=== PATIENT | female | born 1965 | race Caucasian/White ===

== ENCOUNTER 2018-05-27 08:09 | Observation (INO) | payer OTHER, SELFPAY ==
[2018-05-27] VITALS (9 sets, daily range): BP systolic 96–140; BP diastolic 56–92; PULSE 58–90; RESP 16–18; TEMP 36.6–37.3; O2SAT 96–99; BMI 24.2; BMI 20.8; BMI 20.9
[2018-05-27] MEDS: Aspirin 81 MG TAB.CHEW 324 MG PO (08:29)
[2018-05-27 08:39] LABS: Absolute Lymphocyte Count 1.91 X10^3/ul (0.83-4.51); Absolute Neutrophil Count 5.6 X10^3/uL (2.0-7.7); Basophil# 0.03 X10^3/uL; Basophil% 0.3 % (0-1); Eosinophil# 0.36 X10^3/uL; Eosinophils% 4.1 % (0-5); Hematocrit 40.2 % (37-47); Lymphocyte # 1.91 X10^3/ul (4.0); Lymphocyte % 21.9 % (19-41); Mean Corpuscular Volume 80.4 fL (81-99); Mean Platelet Vol. 11.1 fl (6.2-12.0); Monocyte# 0.77 X10^3/uL; Monocyte% 8.8 % (0-10); Neutrophil # 5.61 X10^3/uL (2.7-7.7); Neutrophil % 64.6 % (47-70); Platelet Count 201 K/mm3 (150-450); RBC Distribution Width CV 15.1 % (11.6-14.6); RBC Distribution Width SD 44.1 fl (35.1-43.9); White Blood Count 8.7 K/mm3 (4.4-11.0)
[2018-05-27 08:41] LABS: Hemoglobin 14.6 g/dl (12.0-15.0); Mean Corpuscular Hgb 29.2 pg (27.0-32.0)
--- NOTE | 2018-05-27 08:41 | ED.DCSUM_ITS ---
- ER Visit Summary Date of Service: 05/27/18 Chief Complaint: Chest pain History of Present Illness: The patient is a 53 F with 1 hour of chest pain, aching across her chest. This is now just resolved. She has no fever or chills. The pain does not radiate into her abdomen or jar region there is no back pain. She does not feeling a tearing sensation. She has no PE risk factors or calf pain. Pain is mild to moderate, again this has resolved. Physical Examination: Not appear in acute distress. Moist mucous membranes, no obvious facial deformity No C-spine tenderness supple neck. Regular rate and rhythm without any obvious murmurs Clear lungs bilaterally speaking in full sentences without any obvious respiratory distress Abdomen soft and nontender no guarding or rebound Moves all extremities without any difficulty or pain. Skin does not show any obvious rashes or lesions, no trauma. Alert oriented ?3 with no gross focal deficit Emergency Department Course and Treatment: Patient has an unremarkable workup, however she has T-wave inversions in the anteroseptal leads which are changed from prior EKG, her heart score is a 4 therefore I will admit for further workup Disposition: Admit to the hospitalist in stable condition Impression: Chest pain This note was generated with Telisma dictation software. It may contain incorrect words, spelling, and punctuation that were not noted in review of the chart prior to signing ED Disposition - Plan for ED Patient: Chief Complaint: Chest Pain Referrals: Noelle Bowden DO [Primary Care Provider] -
[2018-05-27 08:42] LABS: Mean Corp Hgb Conc 36.3 g/gl (32-36); POSITIVE COUNT NO; POSITIVE DIFFERENTIAL NO; POSITIVE MORPHOLOGY NO
[2018-05-27 08:47] LABS: Anion Gap 11 (5-15); BUN 14 mg/dL (7-18); BUN/Creat Ratio 20.6 RATIO (10-20); Calcium,Total 8.9 mg/dL (8.5-10.1); Chloride 102 mmol/L (98-107); Creatinine, Serum 0.68 mg/dL (0.55-1.02); EST Glomerular Filtration Rate 96 mL/min (>60); Est Glom Filt Rate - Afr Amer 116 mL/min (>60); Estimated Creatinine Clearance 89.57 ml/min; Glucose 83 mg/dL (74-106); Potassium 3.6 mmol/L (3.5-5.1); Sodium Level 143 mmol/L (136-145)
[2018-05-27] MEDS: 0.9% Normal Saline 1,000 ML 75 ML IV (10:04)
--- NOTE | 2018-05-27 10:16 | PCM.HP.STD ---
History of Present Illness Date of Admission: 05/27/18 Chief Complaint: Chest pain. The patient is a 53 year old F with no significant past medical history presented to the emergency department because of chest pain. Her symptoms started this morning when she was at work standing, started having upper back pain, went to her anterior chest, sharp pain, 10 out of 10 in severity, across her upper chest both on the front and on the back, associated with sweating and mild shortness of breath and no aggravating or relieving factors. The pain lasted for a few minutes until she arrived to the emergency department. She was about to be given sublingual nitroglycerin in the ER but her pain improved. At this time, the pain significantly improved. In the emergency department, her vital signs were stable. Her routine blood work was unremarkable. Her troponin was negative. Chest x-ray showed no acute findings. EKG revealed normal sinus rhythm, normal WV interval, prolonged QTC, T-wave inversion and V2, V3 and V4 and compared to EKG from 2012, T-wave inversion is chronic but more prominent on today's EKG. She is being admitted for atypical chest pain with minimal EKG changes for evaluation. Past Medical History Allergies No Known Allergies Allergy (Unverified 05/27/18 08:22) Home Medications: Ambulatory Orders Medication Instructions Recorded aspirin 81 mg tablet,delayed 81 mg PO QDAY 09/28/17 release lorazepam 1 mg tablet 1 mg PO DAILY PRN PRN 09/28/17 Surgical History: no surgical history Psychiatric History: No pertinent psych hx Lives: Spouse/ Significant Other Smoking Status: Current every day smoker Tobacco Use: Cigarettes Alcohol: Occasional Drugs: None - *Family History Maternal History Items: No pertinent history Paternal History Items: No pertinent history Review of Systems Constitutional: Denies: Anorexia, Chills, Fever, Weakness Eyes: Denies: Blurred vision, Double vision, Drainage, Redness HEENT: Denies: Difficulty Hearing, Ear Pain, Eye Pain, Nasal Congestion, Sore Throat Cardiovascular: Reports: Chest Pain. Denies: Edema, Heaviness, Light Headedness, Palpitations, Syncope Respiratory: Reports: Shortness of Breath. Denies: Cough, Pleuritic Pain, Sputum production, Wheezing Gastrointestinal: Denies: Abdominal Pain, Constipation, Diarrhea, Nausea, Vomiting Genitourinary: Denies: Dysuria, Frequency, Hematuria Musculoskeletal: Denies: Arm Pain, Back Pain, Foot Pain Skin: Denies: Dryness, Rash Neurological: Denies: Balance problems, Double vision, Change in Speech, Slurred speech, Incoordination, Numbness, Tingling Psychiatric: Denies: Depression Endocrine: Denies: Change in Body Habitus, Polydipsia VTE Information - Inpt Only VTE Present on Admission: No VTE Mechan Device Prophylaxis: None VTE Pharm Prophylaxis ordered?: No - Physical Exam General: Alert, Oriented x3, Cooperative, No apparent distress HEENT: Atraumatic, PERRLA, EOMI, Normocephalic Oral: Moist Mucosa, No Gingival or Mucosal Lesions/ Ulcerations Neck: Supple, No JVD, Negative Carotid Bruits, Trachea Midline, Thyroid Normal Size and Texture Lungs: Clear to auscultation, Normal air movement, No rhonchi, No wheeze, No rales Cardiovascular: Regular rate, Regular Rhythm, Normal S1, Normal S2, No murmurs Abdomen: Bowel Sounds Present, Soft, Non Tender, Non-Distended, No Hepato-splenomegaly Extremities: No clubbing, No cyanosis, No edema Skin: No rashes, No breakdown Musculoskeletal: No Tenderness to Palpation of Joints or Extremities Lymphatic: No Cervical, Supraclavicular, or Inguinal Adenopathy Neurological: Cranial nerves II-XII grossly intact, Motor Exam 5/5 strength throughout Psych/Mental Status: Normal Affect, Appropriate, Alert and oriented to time, place, person, mood and affect Vital Signs Temp Pulse Resp BP Pulse Ox 98.4 F 63 16 123/76 H 97 05/27/18 09:55 05/27/18 09:55 05/27/18 09:55 05/27/18 09:55 05/27/18 09:55 Oxygen Delivery Method Room Air Laboratory Tests 05/27/18 05/27/18 Range/Units 08:19 08:19 WBC 8.7 (4.4-11.0) K/mm3 RBC 5.00 (4.2-5.4) M/mm3 Hgb 14.6 (12.0-15.0) g/dl Hct 40.2 (37-47) % MCV 80.4 L (81-99) fL MCH 29.2 (27.0-32.0) pg MCHC 36.3 H (32-36) g/gl RDW 15.1 H (11.6-14.6) % RDW Differential 44.1 H (35.1-43.9) fl Plt Count 201 (150-450) K/mm3 MPV 11.1 (6.2-12.0) fl Immature Gran % (Auto) 0.300 (0.0-0.9) % Neut % (Auto) 64.6 (47-70) % Lymph % (Auto) 21.9 (19-41) % [place] % (Auto) 8.8 (0-10) % Eos % (Auto) 4.1 (0-5) % Baso % (Auto) 0.3 (0-1) % Absolute Neuts (auto) 5.6 (2.0-7.7) X10^3/uL Absolute Lymphs (auto) 1.91 (0.83-4.51) X10^3/ul Total Counted Not Reportable Sodium 143 (136-145) mmol/L Potassium 3.6 (3.5-5.1) mmol/L Chloride 102 (98-107) mmol/L Carbon Dioxide 30.0 (21.0-32.0) mmol/L Anion Gap 11 (5-15) BUN 14 (7-18) mg/dL Creatinine 0.68 (0.55-1.02) mg/dL Estim Creat Clear Calc 89.57 ml/min Est GFR (MDRD) Af Amer 116 (>60) mL/min Est GFR (MDRD) Non-Af 96 (>60) mL/min BUN/Creatinine Ratio 20.6 H (10-20) RATIO Glucose 83 (74-106) mg/dL Calcium 8.9 (8.5-10.1) mg/dL Troponin I < 0.015 (<0.045) ng/mL Clinical Impression(s) from Imaging Studies Chest X-Ray 05/27/18 08:45 IMPRESSION: Hyperinflation. Electronically Signed: Terry Pérez MD at 9:19 EDT Tel [phone], Service support , Assessment/Plan This is a 53 years old female patient presented to the emergency department because of chest pain, found to have subtle EKG changes and she is being admitted for evaluation. #1 atypical chest pain/EKG changes: Risk factors are only smoking. EKG revealed normal sinus rhythm, T-wave inversion and V2, V3 and V4 and those changes were present on EKG from 2011 but more prominent, no acute ST elevation. Troponin is negative. Chest x-ray showed no acute findings. Routine blood work was unremarkable. Vital signs are stable. She had nuclear stress test back in 2014 that was unremarkable. Plan: Admit to PCU for observation, cardiac monitoring, serial cardiac enzymes, repeat EKG tomorrow morning, nitroglycerin as needed, IV fluids, IV antiemetics as needed, nuclear stress test tomorrow morning if cardiac enzymes are negative. #2 DVT prophylaxis: Low risk patient, no prophylaxis indicated. This note was generated with Polar dictation software. It may contain incorrect words, spelling, and punctuation that were not noted in checking the note before signing. Code Visit OBSV E&M: 94309 Initial observation care L3
[2018-05-27] MEDS: Acetaminophen 325 MG Tablet 650 MG PO ×2 (10:38→17:55)
[2018-05-28] VITALS (7 sets, daily range): BP systolic 109–131; BP diastolic 58–77; PULSE 59–85; RESP 16; TEMP 36.7–36.9; O2SAT 96–99
[2018-05-28 05:20] LABS: Absolute Lymphocyte Count 1.61 X10^3/ul (0.83-4.51); Absolute Neutrophil Count 3.2 X10^3/uL (2.0-7.7); Basophil# 0.01 X10^3/uL; Basophil% 0.2 % (0-1); Eosinophil# 0.32 X10^3/uL; Eosinophils% 5.7 % (0-5); Hemoglobin 13.2 g/dl (12.0-15.0); Lymphocyte # 1.61 X10^3/ul (4.0); Lymphocyte % 28.8 % (19-41); Mean Corp Hgb Conc 35.7 g/gl (32-36); Mean Corpuscular Hgb 29.3 pg (27.0-32.0); Mean Corpuscular Volume 82.2 fL (81-99); Mean Platelet Vol. 11.5 fl (6.2-12.0); Monocyte# 0.49 X10^3/uL; Monocyte% 8.8 % (0-10); Neutrophil # 3.16 X10^3/uL (2.7-7.7); Neutrophil % 56.3 % (47-70); Platelet Count 144 K/mm3 (150-450); RBC Distribution Width CV 15.3 % (11.6-14.6); RBC Distribution Width SD 45.6 fl (35.1-43.9); White Blood Count 5.6 K/mm3 (4.4-11.0)
[2018-05-28 05:27] LABS: POSITIVE COUNT NO; POSITIVE DIFFERENTIAL NO; POSITIVE MORPHOLOGY NO
[2018-05-28 05:32] LABS: Prothrombin Time (Protime)PT. 13.3 SECONDS (11.7-14.9)
[2018-05-28 05:33] LABS: Partial Thromboplast Time 28.2 Seconds (24.1-36.2)
[2018-05-28 05:39] LABS: Anion Gap 8 (5-15); BUN 9 mg/dL (7-18); BUN/Creat Ratio 17.2 RATIO (10-20); Calcium,Total 8.1 mg/dL (8.5-10.1); Chloride 110 mmol/L (98-107); Creatinine, Serum 0.52 mg/dL (0.55-1.02); EST Glomerular Filtration Rate 130 mL/min (>60); Est Glom Filt Rate - Afr Amer 157 mL/min (>60); Estimated Creatinine Clearance 108.04 ml/min; Glucose 107 mg/dL (74-106); Potassium 4.2 mmol/L (3.5-5.1); Sodium Level 145 mmol/L (136-145)
[2018-05-28] MEDS: Aspirin E.C. 81 MG Tablet PO (05:47)
--- NOTE | 2018-05-28 05:55 | EKG12_ITS ---
Test Reason : AM EKG Blood Pressure : / mmHG Vent. Rate : 064 BPM Atrial Rate : 064 BPM P-R Int : 154 ms QRS Dur : 084 ms QT Int : 456 ms P-R-T Axes : 066 070 081 degrees QTc Int : 470 ms Normal sinus rhythm Normal ECG When compared with ECG of 27-MAY-2018 08:16, MANUAL COMPARISON REQUIRED, DATA IS UNCONFIRMED Confirmed by SINTIA CHAVEZ ([id number]), newspaper or periodical editor JUSTEN LUKE ([id number]) on 06/03/2018 3:14:54 PM Referred By: ACE Confirmed By:SINTIA CHAVEZ
[2018-05-28] MEDS: Acetaminophen 325 MG Tablet 650 MG PO (08:31)
--- NOTE | 2018-05-28 11:07 | STRESSREP ---
Stress Test Report Date: 05/28/2018 Procedure: Exercise tolerance test/imaging study Indications: Chest pain Consent: Per the patient Procedure: The patient exercised on a Ferny protocol for 11 minutes and 30 seconds minutes completing Stage III and 2 minutes and 30 seconds of Stage IV achieving a peak heart rate of 166 bpm (99 % predicted maximal heart rate) with a peak blood pressure 150/68 mmHg and a peak MET capacity of 13 METs. The baseline ECG demonstrated sinus rhythm. The peak exercise ECG demonstrated somatic/motion artifact with no obvious ECG changes. There were no cardiac dysrhythmias pretest, during exercise, or recovery. The functional capacity was considered excellent. There was neck discomfort pretest, during exercise, and recovery without obvious change. The examination was discontinued secondary to leg discomfort. Impression: 1. Technically adequate (percent predicted maximal heart rate greater than 85%) exercise tolerance test 2. Peak exercise ECG demonstrated somatic/motion artifact with no obvious ECG changes 3. There were no cardiac dysrhythmias pretest, during exercise, or recovery. 4. Nuclear images pending Myocardial perfusion imaging study: Technique: The patient was injected with 11.1 mCi of technetium 99m Cardiolite and subsequently rest SPECT Cardiolite nuclear imaging was obtained in the horizontal long, vertical long, and short axis views. The patient exercised on a Ferny protocol for 11 minutes and 30 seconds minutes completing Stage III and 2 minutes 30 seconds of Stage IV achieving a peak heart rate of 166 bpm (99 % predicted maximal heart rate) with a peak blood pressure 150/68 mmHg and a peak MET capacity of 13 METs. The patient was injected with 33.6 mCi of technetium 99m Cardiolite and subsequently stress SPECT Cardiolite nuclear imaging was obtained in the horizontal long, vertical long, and short axis views. A gated Cardiolite study at peak stress was obtained. Interpretation: Rest and stress SPECT Cardiolite nuclear imaging status post realignment, normalization, and attenuation correction, demonstrates the appearance of relative uniform tracer uptake and myocardial perfusion appearing within normal limits. There is end systolic thickening and brightening. The gated Cardiolite study demonstrates myocardial thickening and inward wall motion. The reported LVEF is 69 %. Impression: 1. Rest and stress SPECT Cardiolite nuclear imaging demonstrate relative uniform tracer uptake and myocardial perfusion appearing within normal limits. 2. The gated Cardiolite study reports an LVEF of 69 %. This note was generated with BioTime software. It may contain incorrect words, spelling, and punctuation that were not noted in checking the note before signing.
--- NOTE | 2018-05-28 12:18 | PCM.DC ---
- Discharge Diagnoses Reason(s) for Visit for Discharge Instructions: Chest pain You will use the following diet at home:: Regular Your food should be the consistency of: Regular Your liquids should be the consistency of: Regular/Thin Discharge Activity: Return to Normal Activity Additional Instructions: Continue to be active- exercise at least 30 mins daily. Follow-up with your PCP within 2 weeks. Discuss getting a repeat carotid ultrasound with your PCP. Allergies/Adverse Reactions: Allergies No Known Allergies Allergy (Unverified 05/27/18 08:22) Medications to take at Discharge aspirin 81 mg tablet,delayed release 81 mg PO QDAY 09/28/17 lorazepam 1 mg tablet 0.5 mg PO DAILY PRN PRN 09/28/17 Primary Care Physician: Noelle Bowden DO [Primary Care Provider] - Please follow up with your Primary Care Physician in: within 2 weeks Test Results: Test results from this visit will be discussed in further detail at your follow-up appointment, if applicable. Proposed Discharge Date: 05/28/18
--- NOTE | 2018-05-28 12:31 | PCM.DC.SUM ---
Discharge Date and Diagnosis Date of Admission: 05/27/18 Date of Discharge: 05/28/18 - Primary Discharge Diagnosis Chest pain Hospital Course and Treatment Imaging Results: 05/28/18 05:55 Nuclear Stress Test - Treadmil [NM] Routine None Operations: None Procedures: Nuclear stress test Summary of Care Provided: The patient is a 53 year old F with no significant past medical history admitted with chest pain that started on the morning of admission whilst working. It was described as upper back pain that radiated to her anterior chest, described as 10 out of 10. It was associated with some mild sweatiness and shortness of breath. Pain lasted for a few minutes until she arrived at the emergency department. She was given sublingual nitro which helped improve her pain. EKG shows normal sinus rhythm, normal MD interval, prolonged QTC, some T-wave inversions in V2, V3, V4 compared to previous EKG although T-wave inversions are chronic for her. Patient's troponins were negative. She was monitored in the telemetry bed. Had a stress test that was negative. Repeat EKG shows unchanged T-wave inversions. Patient was asymptomatic at the time of discharge Discharge Diet: No Restrictions Discharge Activity: Return to Normal Activity Home Medications: Medications to take at Discharge aspirin 81 mg tablet,delayed release 81 mg PO QDAY 09/28/17 lorazepam 1 mg tablet 0.5 mg PO DAILY PRN PRN 09/28/17 Primary Care Physician: Noelle Bowden DO [Primary Care Provider] - Please follow up with your Primary Care Physician in: within 2 weeks Disposition: Home Minutes spent on discharge:: 40 Patient Condition:: Stable Medical Necessity - Tobacco Use Smoking Status: Current every day smoker Tobacco Use: Cigarettes Meaningful Use Info Meaningful Use Diagnoses (Choose all that apply): None applicable Code Visit OBSV E&M: 27452 Observation care discharge
== END 2018-05-28 12:30 | disposition home or self-care (01) ==
LOC: ED 08:43 → PCU 09:29
PROVIDERS: Admitting Provider Hospitalist; Emergency Provider Emergency Medicine; Family Provider Internal Medicine; PCP Internal Medicine; Visit Provider Internal Medicine
DX: R07.89 Other chest pain (principal); M54.6 Pain in thoracic spine; Z79.899 Other long term (current) drug therapy; Z79.82 Long term (current) use of aspirin; F17.210 Nicotine dependence, cigarettes, uncomplicated; I45.81 Long QT syndrome; R06.02 Shortness of breath
CPT/HCPCS: 36415; 71045; 78452; 80048; 84484; 85025; 85610; 85730; 93005; 93017; 96360; 96361; 99218; 99283; A9500; J7030; Q9957; A4216; G0378

== ENCOUNTER → 2018-06-18 08:51 | Outpatient (CLI) | payer OTHER, SELFPAY ==
[2018-06-20 09:31] LABS: Hep C Antibodies <0.1 s/co ratio (0.0-0.9)
== END ==
PROVIDERS: Family Provider Internal Medicine; PCP Internal Medicine; Referring Provider Internal Medicine; Visit Provider Internal Medicine
DX: Z11.59 Encounter for screening for other viral diseases (principal)
CPT/HCPCS: 36415; 86803

== ENCOUNTER → 2018-06-20 11:01 | Outpatient (CLI) | payer OTHER, SELFPAY ==
--- NOTE | 2018-06-20 11:05 | CDU_ITS ---
Reason For Study: Stenosis Rt. Velocities/BP Lt. Velocities/BP Prox CCA 78.6/28.1 cm/sec. Prox CCA 85/23.5 cm/sec. Mid CCA 68.6/24 cm/sec. Mid CCA 76.2/22.3 cm/sec. Dist CCA 64.5/22.9 cm/sec. Dist CCA 73.3/25.2 cm/sec. Prox ICA 81.3/31 cm/sec. Prox ICA 59.7/26.3 cm/sec. Mid ICA 64.8/28.7 cm/sec. Mid ICA 85.6/41.6 cm/sec. Dist ICA 86.7/31 cm/sec. Dist ICA 99.1/50.4 cm/sec. Rt. ICA/CCA = 1.26. Lt. ICA/CCA = 1.30. Prox ECA 86.2/20.5 cm/sec. Prox ECA 87.9/17.6 cm/sec. Rt. Vert. 50.7/13.4 cm/sec. Lt. Vert. 55/17.3 cm/sec. Right Extracranial There is no significant atherosclerotic plaque noted in the right common carotid artery. There is intimal thickening but no significant atherosclerotic plaque noted in the right internal carotid artery. There is no significant atherosclerotic plaque noted in the right external carotid artery. Antegrade flow is noted in the right vertebral artery. Left Extracranial There is no significant atherosclerotic plaque noted in the left common carotid artery. There is no significant atherosclerotic plaque noted in the left internal carotid artery. There is no significant atherosclerotic plaque noted in the left external carotid artery. Antegrade flow is noted in the left vertebral artery. Procedure Carotid Duplex [id number]. Exam performed in department. Interpretation Summary Mild (<50%) stenosis right extracranial internal carotid. Mild (<50%) stenosis left extracranial internal carotid. Flow within the vertebral arteries is antegrade bilaterally. Ordering Physician: Dennise, Noelle Referring Physician: Noelle Bowden Performed By: [place] RVT and Student
== END ==
PROVIDERS: Family Provider Internal Medicine; PCP Internal Medicine; Referring Provider Internal Medicine; Visit Provider Internal Medicine
DX: I65.23 Occlusion and stenosis of bilateral carotid arteries (principal)
CPT/HCPCS: 93880

== ENCOUNTER → 2018-07-11 21:23 | Outpatient (CLI) | payer OTHER, SELFPAY ==
[2018-07-11 21:24] LABS: Mucous, Urine 0 SEEN /hpf (<or=2+)
[2018-07-11 23:29] LABS: Color, Urine Yellow (Yellow); Glucose, Dipstick Normal (Normal); Ketone-Dipstick Negative (Negative); Leukocyte Esterase-Dipstick 500 /ul (Negative); Nitrite-Dipstick Positive (Negative); Occult Blood-Urine 50 /ul (Negative); Protein-Dipstick 15 mg/dl (Negative); Urine Bilirubin Dipstick Negative (Negative); Urine Clarity Sl. Cloudy (Clear); Urine Urobilinogen Normal (Normal)
[2018-07-11 23:41] LABS: Bacteria RARE /hpf (None Seen); Red Blood Cells-Urine 5-10 SEEN /hpf (0-5); Squamous Epithelial Cells - UA 0-5 SEEN /hpf (5-10); White Blood Cells 25-50 SEEN /hpf (0-5)
== END ==
PROVIDERS: Family Provider Internal Medicine; PCP Internal Medicine; Referring Provider Nurse Practitioner Family; Visit Provider Nurse Practitioner Family
DX: R30.0 Dysuria (principal)
CPT/HCPCS: 81001; 87086; 87088; 87186

== ENCOUNTER → 2018-07-22 15:21 | Outpatient (CLI) | payer OTHER, SELFPAY ==
--- NOTE | 2018-07-22 15:23 | BI_ITS ---
MAMMOGRAPHY - BILATERAL SCREENING REASON FOR EXAM: Female, 53 years old. Routine annual screening examination. PERTINENT HISTORY: Sister with breast cancer. TECHNIQUE: Digital bilateral breast richard (3D mammographic acquisition) in the CC and MLO projections. 2-D mediolateral oblique (MLO) and craniocaudad (CC) views of both breasts were obtained. CAD: Full Field Digital Mammography with Computer Added Detection was performed. COMPARISON: Comparison is made with prior study dated October 12, 2016 and September 12, 2011. FINDINGS: Breast Composition: The breasts are heterogeneously dense, which may obscure small masses. There are no dominant masses or suspicious calcifications. No other significant abnormalities are identified. There has been no significant change since the prior study. BI/SCREENING MAMM (CAD), BILAT IMPRESSION: Stable bilateral screening mammogram. Yearly follow-up mammogram recommended. (A) ASSESSMENT CATEGORY: BIRADS Category 1: Negative. A letter regarding these results will be sent to the patient by the facility within 30 days. Approximately 10% of breast cancers are not detected by mammography. A normal mammogram should not delay biopsy of a clinically suspicious abnormality. [id number] Electronically Signed: Terry Pérez MD at 8:05 EDT Tel [phone], Service support ,
--- NOTE | 2018-07-22 15:27 | BD_ITS ---
STUDY: DUAL ENERGY X-RAY ABSORPTIOMETRY / DXA REASON FOR EXAM: Female, 53 years old. The patient is postmenopausal. No loss of height. TECHNIQUE: Bone Mineral Density (BMD) measurements of lumbar spine and bilateral hips were obtained. COMPARISON: None. FINDINGS: Lumbar Spine (L1-L4): g/cm2 (1.125) / T-score (-0.5) / Z-score (0.2) Findings are suggestive of normal bone density with a low fracture risk. Left Femur Total: g/cm2 (0.786) / T-score (-1.8) / Z-score (-1.2) Left Femoral Neck: g/cm2 (0.761) / T-score (-2.0) / Z-score (-1.1) Right Femur Total: g/cm2 (0.810) / T-score (-1.6) / Z-score (-1.0) Right Femoral Neck: g/cm2 (0.767) / T-score (-2.0) / Z-score (-1.0) BD/Dexa Bone Density Study IMPRESSION: The patient is considered osteopenic as outlined below according to World Patel Organization (WHO) criteria with a moderate fracture risk. Reference Information: The T-score is the number of standard deviations above or below the standard which is normal for young adults at their peak bone mineral density. The World Health Organization (WHO) interprets the T-scores as follows: Above -1 Normal bone density Between -1 and -2.5 Osteopenia Equal to / or below -2.5 Osteoporosis As a practical clinical guideline, osteopenia may be graded as follows: Mild -1 through -1.5 Moderate -1.6 through -2.0 Severe -2.1 through -2.4 The Z-score is the number of standard deviations above or below age-matched controls. A Z-score of less than -1.5 would be considered abnormal. References: 1. NIH Osteoporosis and Related Bone Diseases http://www.osteo.org 2. International Society for Clinical Densitometry http://www.iscd.org 3. National Osteoporosis Foundation http://www.nof.org Electronically Signed: Terry Pérez MD at 10:10 EDT Tel [phone], Service support ,
== END ==
PROVIDERS: Family Provider Internal Medicine; PCP Internal Medicine; Visit Provider Internal Medicine
DX: Z12.31 Encounter for screening mammogram for malignant neoplasm of breast (principal); Z78.0 Asymptomatic menopausal state
CPT/HCPCS: 77063; 77067; 77080

== ENCOUNTER → 2018-08-28 13:33 | Outpatient (CLI) | payer OTHER, SELFPAY ==
[2018-05-27 10:28] VITALS: BMI 20.8
[2018-08-28 14:13] LABS: Vitamin D,25 Hydroxy 20.9 ng/mL (29.95-100.01)
== END ==
PROVIDERS: Family Provider Internal Medicine; PCP Internal Medicine; Referring Provider Internal Medicine; Visit Provider Internal Medicine
DX: M85.80 Other specified disorders of bone density and structure, unspecified site (principal)
CPT/HCPCS: 36415; 82306

== ENCOUNTER → 2019-07-07 | Outpatient (CLI) | payer OTHER, SELFPAY ==
[2018-05-27 10:28] VITALS: BMI 20.8
[2019-07-07 08:11] LABS: Glucose 101 mg/dL (74-106)
[2019-07-09 12:08] LABS: CHOLESTEROL TOTAL 215 mg/dL (100-199); HDL-C 63 mg/dL (>39); HDL-P TOTAL 40.4 umol/L (>=30.5); SMALL LDL-P 713 nmol/L (<=527); TRIGLYCERIDES 90 mg/dL (0-149)
[2019-07-09 16:55] LABS: INSULIN RESISTANCE SCORE 27 (<=45); LDL SIZE 20.8 nm (>20.5); LDL-C 134 mg/dL (0-99); LDL-P 1654 nmol/L (<1000)
== END | disposition home or self-care (01) ==
LOC: LAB 06:52
PROVIDERS: Family Provider Internal Medicine; PCP Internal Medicine; Referring Provider Internal Medicine; Visit Provider Internal Medicine
DX: Z00.00 Encounter for general adult medical examination without abnormal findings (principal)
CPT/HCPCS: 36415; 80061; 82947; 83704

== ENCOUNTER → 2020-11-21 10:16 | Outpatient (CLI) | payer OTHER, SELFPAY ==
[2020-11-21 09:39] VITALS: BMI 23.3
[2020-11-21 12:22] LABS: Absolute Lymphocyte Count 1.91 X10^3/uL (0.83-4.51); Absolute Neutrophil Count 5.3 X10^3/uL (2.0-7.7); Basophil# 0.03 X10^3/uL; Basophil% 0.4 % (0-1); Eosinophil# 0.53 X10^3/uL; Eosinophils% 6.3 % (0-5); Hematocrit 41.4 % (37-47); Hemoglobin 14.3 g/dL (12.0-15.0); Lymphocyte # 1.91 X10^3/ul (4.0); Lymphocyte % 22.6 % (19-41); Mean Corp Hgb Conc 34.5 g/dL (32-36); Mean Corpuscular Hgb 28.8 pg (27.0-32.0); Mean Corpuscular Volume 83.3 fL (81-99); Mean Platelet Vol. 12.1 fl (6.2-12.0); Monocyte# 0.61 X10^3/uL; Monocyte% 7.2 % (0-10); NRBC Flagged by Analyzer 0 % (0-5); Neutrophil # 5.33 X10^3/uL (2.7-7.7); Neutrophil % 62.9 % (47-70); Platelet Count 212 K/mm3 (150-450); RBC Distribution Width CV 15.3 % (11.6-14.6); RBC Distribution Width SD 46.1 fl (35.1-43.9); Red Blood Count 4.97 M/mm3 (4.2-5.4); White Blood Count 8.5 K/mm3 (4.4-11.0)
[2020-11-21 12:54] LABS: ALB/GLOB Ratio 1.2 RATIO (0.9-2.4); AST(SGOT) 19 U/L (15-37); Alanine Aminotransfer ALT/SGPT 30 U/L (13-56); Alkaline Phosphatase 88 U/L (45-117); Anion Gap 6 (5-15); BUN 11 mg/dL (7-18); BUN/Creat Ratio 15.8 RATIO (10-20); Calcium,Total 8.9 mg/dL (8.5-10.1); Chloride 103 mmol/L (98-107); Cholesterol 217 mg/dL (200); EST Glomerular Filtration Rate 93 mL/min (>60); Est Glom Filt Rate - Afr Amer 112 mL/min (>60); Globulin 3.4 g/dL (2.2-4.2); Glucose 91 mg/dL (74-106); High Density Lipoprotein 58 mg/dL; Potassium 3.9 mmol/L (3.5-5.1); Protein, Total 7.4 g/dL (6.4-8.2); Sodium Level 139 mmol/L (136-145); Triglycerides 245 mg/dL; Very Low Density Lipoprotein 49 mg/dL (5-40)
== END ==
PROVIDERS: PCP Internal Medicine; Visit Provider Internal Medicine
DX: I10 Essential (primary) hypertension (principal)
CPT/HCPCS: 36415; 80053; 80061; 85025

== ENCOUNTER 2020-11-26 12:53 | Observation (INO) | payer OTHER, SELFPAY ==
[2020-11-21 09:39] VITALS: BMI 23.3
[2020-11-26] VITALS (12 sets, daily range): BP systolic 103–160; BP diastolic 64–89; PULSE 70–89; RESP 14–18; TEMP 36.6–36.9; O2SAT 97–98; BMI 22.6; BMI 21.5; BMI 21.6
--- NOTE | 2020-11-26 13:14 | RAD_ITS ---
STUDY: X-RAY CHEST REASON FOR EXAM: Female, 55 years old. Chest pain. Hypertension. TECHNIQUE: Frontal view of the chest COMPARISON: 05/27/18 FINDINGS: The lungs are clear. There are no pleural effusions. There is no pneumothorax. The heart is normal in size. The visualized osseous structures are within normal limits. RAD/Chest 1 View (Portable) IMPRESSION: No acute thoracic pathology. Electronically Signed: Ignacio Rivera MD at 13:45 EST Tel , Service support ,
--- NOTE | 2020-11-26 13:14 | EKG12_ITS ---
Test Reason : CP Blood Pressure : / mmHG Vent. Rate : 091 BPM Atrial Rate : 091 BPM P-R Int : 142 ms QRS Dur : 086 ms QT Int : 406 ms P-R-T Axes : 060 075 045 degrees QTc Int : 499 ms Normal sinus rhythm T wave abnormality, consider anterior ischemia Prolonged QT Abnormal ECG Confirmed by GILLIAN PÉREZ, RENE ([id number]), deputy editor in chief ELICEO ANGELES ([id number]) on 11/29/2020 12:33:40 PM Referred By: TERRY Confirmed By:RENE FRENCH MD
[2020-11-26 13:21] LABS: Absolute Lymphocyte Count 2.75 X10^3/uL (0.83-4.51); Absolute Neutrophil Count 6.9 X10^3/uL (2.0-7.7); Basophil# 0.06 X10^3/uL; Basophil% 0.5 % (0-1); Eosinophil# 0.59 X10^3/uL; Eosinophils% 5.1 % (0-5); Hematocrit 41.9 % (37-47); Hemoglobin 15.1 g/dL (12.0-15.0); Lymphocyte # 2.75 X10^3/ul (4.0); Lymphocyte % 23.8 % (19-41); Mean Corpuscular Hgb 29.4 pg (27.0-32.0); Mean Corpuscular Volume 81.5 fL (81-99); Mean Platelet Vol. 11.6 fl (6.2-12.0); Monocyte# 1.18 X10^3/uL; Monocyte% 10.2 % (0-10); NRBC Flagged by Analyzer 0 % (0-5); Neutrophil # 6.92 X10^3/uL (2.7-7.7); Platelet Count 259 K/mm3 (150-450); RBC Distribution Width CV 14.5 % (11.6-14.6); RBC Distribution Width SD 42.8 fl (35.1-43.9); Red Blood Count 5.14 M/mm3 (4.2-5.4); White Blood Count 11.6 K/mm3 (4.4-11.0)
[2020-11-26] MEDS: Aspirin 81 MG TAB.CHEW 324 MG PO (13:33)
[2020-11-26] MEDS: 0.9% Normal Saline 1,000 ML 150 ML IV ×2 (13:34→15:23)
[2020-11-26 13:35] LABS: Anion Gap 6 (5-15); BUN 18 mg/dL (7-18); Calcium,Total 9.4 mg/dL (8.5-10.1); Chloride 96 mmol/L (98-107); Creatinine, Serum 0.86 mg/dL (0.55-1.02); EST Glomerular Filtration Rate 73 mL/min (>60); Est Glom Filt Rate - Afr Amer 88 mL/min (>60); Estimated Creatinine Clearance 63.83 ml/min; Glucose 102 mg/dL (74-106); Potassium 3.1 mmol/L (3.5-5.1); Sodium Level 133 mmol/L (136-145)
--- NOTE | 2020-11-26 13:55 | ED.VISSUMM ---
- ER Visit Summary Date of Service: 11/26/20 Chief Complaint: [Chest pain] History of Present Illness: The patient is a 55 F [presents to the emergency department complaint of chest pain that started yesterday. She describes some vague symptoms of tightness in her upper chest into her neck. Symptoms were worse this morning she felt lightheaded with standing at times. Patient also states that she at one point sat down and while sitting began to sweat profusely. Patient felt like her heart was pounding and skipping beats. She states that her blood pressures been elevated. Patient recently started on hydrochlorothiazide for blood pressure. She also has history of high cholesterol. Patient is a smoker. Patient did have a stress test she believes several years ago. Patient's mother has had an RI in her 60s.] Physical Examination: [HEENT-PERRLA, EOMI. Cranial nerves II through XII grossly intact. TMs clear. Mucous membranes moist. No adenopathy. Cardiovascular-regular rate and rhythm without murmur or ectopy Lungs-clear to auscultation, chest wall stable without crepitus or subcu emphysema Abdomen-normoactive bowel sounds, soft, nontender, no rebound or rigidity, no peritoneal signs. Extremities-intact ?4, normal range of motion, normal pulses, atraumatic] Test Results: [EKG obtained on arrival shows sinus rhythm with a ventricular rate of [address] changes noted with some flipped T waves noted in V1 through V4. When compared with prior EKG from 2018 the flipped T waves are chronic in V1 and V2 however they were not present in V3 and V4 at that time. CBC with differential showed organ of 11.6, hemoglobin 15, hematocrit 42, placed 259. Chemistries unremarkable other than slightly depressed potassium of 3.1. Troponin was less than 0.015. Chest x-ray 1 view obtained interpreted by myself as no acute disease process without any evidence of infiltrate, cardiomegaly, pneumomediastinum, or widened mediastinum. Radiology in agreement.] Emergency Department Course and Treatment: [Line established on arrival. Patient received aspirin. Patient refused nitroglycerin.] Treatment Plan: [Admit for further work-up and evaluation of her chest pain. Patient's heart score is 5.] Disposition: [Admit] Impression: [Chest pain-rule out acute coronary syndrome] This note was generated with Dragon dictation software. It may contain incorrect words, spelling, and punctuation that were not noted in review of the chart prior to signing ED Disposition - Plan for ED Patient: Referrals: Luz Marina Martini MD [Primary Care Provider] -
--- NOTE | 2020-11-26 14:19 | PCM.HP.STD ---
History of Present Illness Date of Admission: 11/26/20 Chief Complaint: Chest pain The patient is a 55 year old F with PMH as below presents to the hospital with chest pain which started yesterday. She describes as more of tightness in her upper chest and going up into her neck. And then this morning she felt a little bit lightheaded and became diaphoretic. She also states that occasionally she is other feels like her heart is pounding in her chest and may be skipping beats. She has been following with her PCP for hypertension was recently started on hydrochlorothiazide because of climbing pressures, but she says that this is also when her abnormal beat started. She is also a smoker and states that her mother had a heart attack in her 60s. In the ER her EKG showed new T wave inversions in V34 and 5, she did have previous T wave inversions in V1 and V2. She had a stress test which was unremarkable in 2018 and an echo in 2014 which was normal. Troponins in the ER are negative so far. Past Medical History Past Medical History (Chronic Problems): Chronic Problems (Last Updated 11/07/20 @ 09:16 by Lisa Cobb) Hypertension (Chronic) Dermatitis (Chronic) Medical History: Medical History (Last Updated 11/07/20 @ 09:16 by Lisa Cobb) Anxiety F41.9 Allergies No Known Allergies Allergy (Verified 11/26/20 12:53) Home Medications: Ambulatory Orders Medication Instructions Recorded aspirin 81 mg tablet,delayed 81 mg PO QDAY 09/28/17 release lorazepam 1 mg tablet 0.5 mg PO DAILY PRN PRN 09/28/17 ascorbate calcium (vitamin C) 500 500 mg PO DAILY 11/07/20 mg tablet cholecalciferol (vitamin D3) 25 25 mcg PO DAILY 11/07/20 mcg (1,000 unit) capsule cyanocobalamin (vitamin B-12) 500 500 mcg PO DAILY 11/07/20 mcg tablet Hydrochlorothiazide [Hctz] 12.5 mg PO QAM 11/26/20 Surgical History: no surgical history Psychiatric History: No pertinent psych hx Smoking Status: Current every day smoker Tobacco Use: Cigarettes Alcohol: None Drugs: None - *Family History Maternal Family History: Family History (Last Updated 11/07/20 @ 09:13 by Lisa Cobb) Mother Arthritis Myocardial infarction Heart disease Sister Breast cancer Cancer Father Cancer Diabetes Brother Cancer History Items: No pertinent history Paternal Family History: Family History (Last Updated 11/07/20 @ 09:13 by Lisa Cobb) Mother Arthritis Myocardial infarction Heart disease Sister Breast cancer Cancer Father Cancer Diabetes Brother Cancer History Items: No pertinent history Review of Systems Constitutional: Denies: Chills, Fever, Weight Change HEENT: Denies: Head Aches, Sinus Congestion, Sinus Drainage Cardiovascular: Reports: Chest Tightness, Light Headedness. Denies: Chest Pain, Palpitations Respiratory: Denies: Cough, Shortness of breath at rest, Sputum production Gastrointestinal: Denies: Abdominal Pain, Nausea, Vomiting Genitourinary: Denies: Dysuria Musculoskeletal: Denies: Joint Pain, Joint Tenderness Skin: Denies: Rash, Wounds Neurological: Denies: Numbness, Tingling, Focal weakness Psychiatric: Denies: Anxiety, Depression Hematologic/ Lymphatic: Denies: Easy Bruising, Easy Bleeding VTE Information - Inpt Only VTE Present on Admission: No - Physical Exam Vitals/I&O's: Vital Signs Temp Pulse Resp BP Pulse Ox 98.0 F 75 14 134/71 H 98 11/26/20 12:54 11/26/20 14:11 11/26/20 14:11 11/26/20 14:11 11/26/20 14:11 Oxygen Delivery Method Room Air Weight: 132 lb 4.438 oz Body Mass Index (BMI) 22.6 General: Alert, Oriented x3, Cooperative, No apparent distress HEENT: Atraumatic, PERRLA, EOMI, Normocephalic Oral: Moist Mucosa Neck: Supple, No JVD Lungs: Clear to auscultation, Normal air movement, No rhonchi, No wheeze, No rales Cardiovascular: Regular rate, Regular Rhythm, Normal S1, Normal S2, No murmurs Abdomen: Soft, Non Tender, Non-Distended, No Hepato-splenomegaly Extremities: No edema, Capillary Refill Less than 3 Seconds Skin: No breakdown, Rash Present - Pruritic raised nonblanching lesions on her back and anterior thighs Musculoskeletal: No Tenderness to Palpation of Joints or Extremities Neurological: Neuro grossly intact, Sensory exam intact to light touch and pain Psych/Mental Status: Normal Affect, Appropriate Laboratory Results 11/26/20 13:00: WBC 11.6 H, RBC 5.14, Hgb 15.1 H, Hct 41.9, MCV 81.5, MCH 29.4, MCHC 36.0, RDW Std Deviation 42.8, RDW Coeff of Manuel 14.5, Plt Count 259, MPV 11.6, Immature Gran % (Auto) 0.400, Neut % (Auto) 60.0, Lymph % (Auto) 23.8, [place] % (Auto) 10.2 H, Eos % (Auto) 5.1 H, Baso % (Auto) 0.5, Absolute Neuts (auto) 6.9, Absolute Lymphs (auto) 2.75, Nucleated RBC % 0 11/26/20 13:00: Sodium 133 L, Potassium 3.1 L, Chloride 96 L, Carbon Dioxide 31.0, Anion Gap 6, BUN 18, Creatinine 0.86, Estim Creat Clear Calc 63.83, Est GFR (MDRD) Af Amer 88, Est GFR (MDRD) Non-Af 73, BUN/Creatinine Ratio 21.0 H, Glucose 102, Calcium 9.4, Troponin I < 0.015 Current Medications Sodium Chloride () 1,000 mls @ 150 mls/hr IV .Q6H40M ARASH Last Admin: 11/26/20 13:34 Dose: 150 mls/hr Documented by: Nitroglycerin (Nitroglycerin Sl (Ed/Img/Cath) 0.4 Mg Tablet) 0.4 mg SUBLINGUAL Q5M PRN PRN Reason: Chest pain Assessment/Plan 1. Chest pain/HTN/HLD/tobacco abuse -Initial troponin is negative, will trend -EKG with flipped T waves in the lateral leads which is new -Plan for stress test on Saturday -She had elevated triglycerides as well as total cholesterol in 2018, will start her on a statin -Continue with aspirin -Encourage smoking cessation -We will check lipid panel 2. Anxiety -She does get significant anxiety at times and takes Ativan -This chest pain episode could have been a panic attack however will rule out cardiac source first -Continue with Ativan DVT: Lovenox OBSV E&M: 65749 Initial observation care L2
--- NOTE | 2020-11-26 14:54 | EKG12_ITS ---
Test Reason : CP ADMISSION Blood Pressure : / mmHG Vent. Rate : 068 BPM Atrial Rate : 068 BPM P-R Int : 156 ms QRS Dur : 086 ms QT Int : 462 ms P-R-T Axes : 058 065 064 degrees QTc Int : 491 ms Normal sinus rhythm T wave abnormality, consider anterior ischemia Prolonged QT Abnormal ECG Confirmed by LESTER PÉREZ, KURTIS ([id number]), editorial director ELICEO ANGELES ([id number]) on 11/29/2020 12:50:29 PM Referred By: IRVING Confirmed By:KURTIS BATISTA MD
--- NOTE | 2020-11-26 16:54 | NURSING ---
this RN resuming care of patient at this time
[2020-11-26] MEDS: Potassium Chloride Oral Tablet 20 MEQ 40 MEQ PO (17:18)
[2020-11-26] MEDS: Acetaminophen 325 MG Tablet 650 MG PO (19:30)
[2020-11-26] MEDS: LORazepam 0.5 MG Tablet PO (19:38)
[2020-11-26] MEDS: Atorvastatin Calcium 40 MG Tablet PO (21:07)
[2020-11-27 04:00] VITALS: PULSE 79
[2020-11-27 04:30] VITALS: BP 112/67; PULSE 66; RESP 16; TEMP 36.4; O2SAT 97
[2020-11-27 05:28] LABS: Absolute Lymphocyte Count 2.69 X10^3/uL (0.83-4.51); Absolute Neutrophil Count 3.4 X10^3/uL (2.0-7.7); Basophil# 0.05 X10^3/uL; Basophil% 0.7 % (0-1); Eosinophil# 0.76 X10^3/uL; Eosinophils% 9.9 % (0-5); Hematocrit 39.9 % (37-47); Lymphocyte # 2.69 X10^3/ul (4.0); Lymphocyte % 35.2 % (19-41); Mean Corp Hgb Conc 35.1 g/dL (32-36); Mean Corpuscular Hgb 28.7 pg (27.0-32.0); Mean Corpuscular Volume 81.8 fL (81-99); Mean Platelet Vol. 11.8 fl (6.2-12.0); Monocyte# 0.69 X10^3/uL; NRBC Flagged by Analyzer 0 % (0-5); Neutrophil # 3.44 X10^3/uL (2.7-7.7); Neutrophil % 44.9 % (47-70); Platelet Count 224 K/mm3 (150-450); RBC Distribution Width CV 14.9 % (11.6-14.6); RBC Distribution Width SD 44.3 fl (35.1-43.9); Red Blood Count 4.88 M/mm3 (4.2-5.4); White Blood Count 7.7 K/mm3 (4.4-11.0)
[2020-11-27 06:23] LABS: Anion Gap 6 (5-15); BUN 14 mg/dL (7-18); Calcium,Total 8.7 mg/dL (8.5-10.1); Chloride 103 mmol/L (98-107); Cholesterol 213 mg/dL (200); Creatinine, Serum 0.67 mg/dL (0.55-1.02); EST Glomerular Filtration Rate 97 mL/min (>60); Est Glom Filt Rate - Afr Amer 118 mL/min (>60); Estimated Creatinine Clearance 81.93 ml/min; Glucose 101 mg/dL (74-106); High Density Lipoprotein 60 mg/dL; Potassium 3.9 mmol/L (3.5-5.1); Sodium Level 138 mmol/L (136-145); Triglycerides 132 mg/dL; Very Low Density Lipoprotein 26 mg/dL (5-40)
[2020-11-27 07:00] VITALS: PULSE 66
[2020-11-27 08:46] VITALS: BP 119/88; PULSE 76; RESP 16; TEMP 36.7; O2SAT 97
[2020-11-27] MEDS: Aspirin E.C. 81 MG Tablet PO (08:50)
[2020-11-27] MEDS: hydroCHLOROthiazide 12.5mg 12.5 MG PO (08:50)
[2020-11-27] MEDS: Cyanocobalamin 500 MCG Tablet PO (08:50)
--- NOTE | 2020-11-27 08:57 | DCINST_ITS ---
You will use the following diet at home:: Cardiac Your food should be the consistency of: Regular Your liquids should be the consistency of: Regular/Thin Discharge Activity: Return to Normal Activity Call your doctor if you observe: Fever of 101 or Higher, Shortness of breath, Dizziness, Fainting spells, Swelling in the ankles, Chest pain, Increased palpitations (irregular heartbeat) Instructions: ED High Blood Pressure ..., ED Hypertension, New (Begin Treatment), Taking Blood Pressure Medications Additional Instructions: I continued her hydrochlorothiazide at the starting dose which her PCP started to want because your blood pressure has been consistently below 150 systolic. Would recommend taking any home blood pressure machine you have to your PCPs office to be calibrated to make sure you are getting accurate blood pressures at home. Your cholesterol is elevated and your LDL was 127 therefore I am also starting you on a statin. Allergies/Adverse Reactions: Allergies No Known Allergies Allergy (Verified 11/26/20 12:53) Medications to take at Discharge aspirin 81 mg tablet,delayed release 81 mg PO QDAY 09/28/17 lorazepam 1 mg tablet 0.5 mg PO DAILY PRN PRN 09/28/17 ascorbate calcium (vitamin C) 500 mg tablet 500 mg PO DAILY 11/07/20 cholecalciferol (vitamin D3) 25 mcg (1,000 unit) capsule 25 mcg PO DAILY 11/07/20 cyanocobalamin (vitamin B-12) 500 mcg tablet 500 mcg PO DAILY 11/07/20 Hydrochlorothiazide [Hctz] 12.5 mg PO QAM 11/26/20 Atorvastatin Calcium [Lipitor] 40 mg PO QHS #30 tab 11/27/20 The following prescriptions were given: Atorvastatin Calcium [Lipitor] 40 mg PO QHS #30 tab Transmission Status: Pending to [id number] Primary Care Physician: Luz Marina Martini MD [Primary Care Provider] - Please follow up with your Primary Care Physician in: 3-5 days Test Results: Test results from this visit will be discussed in further detail at your follow- up appointment, if applicable.
--- NOTE | 2020-11-27 08:59 | DS.PCM_ITS ---
Discharge Date and Diagnosis Date of Admission: 11/26/20 Date of Discharge: 11/27/20 - Secondary Discharge Diagnosis Chronic Problems: Chronic Problems (Last Updated 11/07/20 @ 09:16 by Lisa Cobb) Hypertension (Chronic) Dermatitis (Chronic) Hospital Course and Treatment Operations: None Procedures: None Summary of Care Provided: Per HPI: The patient is a 55 year old F with PMH as below presents to the hospital with chest pain which started yesterday. She describes as more of tightness in her upper chest and going up into her neck. And then this morning she felt a little bit lightheaded and became diaphoretic. She also states that occasionally she is other feels like her heart is pounding in her chest and may be skipping beats. She has been following with her PCP for hypertension was recently started on hydrochlorothiazide because of climbing pressures, but she says that this is also when her abnormal beat started. She is also a smoker and states that her mother had a heart attack in her 60s. In the ER her EKG showed new T wave inversions in V34 and 5, she did have previous T wave inversions in V1 and V2. She had a stress test which was unremarkable in 2018 and an echo in 2014 which was normal. Troponins in the ER are negative so far. Hospital Course: 1. Chest pain/HTN/HLD/tobacco [id number] female presents from home with chest tightness/pressure as well as abnormal beat. She says that this started after starting hydrochlorothiazide for her blood pressures continue to rise during the week. Her troponins were unremarkable and her EKG was also unremarkable she did have some flipped T waves in her lateral leads however she states today that her chest pain had resolved and she does not want to stay for a stress test tomorrow morning. I discussed with her that that would be the fastest way to make sure that everything is okay with her heart but she would prefer to follow-up with her PCP as an outpatient and schedule either an echo or a stress test from home. I did check her lipid panel and her total cholesterol was elevated to 13 and her LDL was elevated to 127 therefore I did start her on a statin. I also continued her hydrochlorothiazide, she is on 12.5 mg p.o. daily and her blood pressures aside from the initial when she came to the ER have been under 150 systolic. I do recommend that she continue with her hydrochlorothiazide and take her blood pressure monitoring equipment to her PCPs office for calibration. Also encourage cessation of smoking. Discussed with her the plan for discharge today and she expressed understanding of the risk benefits of going home and would like to go home. I did advise her that if she has any more chest pain or pounding in her chest from her abnormal beat that she is to come back to the hospital so we can complete the stress test in the morning. 2. Anxiety is a chronic medical condition which complicates her care. This could be a cause of her chest pain however I would prefer to rule out a cardiac cause first so hopefully she does obtain the stress test as an outpatient. Continue with her Ativan on discharge. - Physical Exam Vitals/I&O's: Vital Signs Temp Pulse Resp BP Pulse Ox 98.0 F 76 16 119/88 H 97 11/27/20 08:46 11/27/20 08:46 11/27/20 08:46 11/27/20 08:46 11/27/20 08:46 Oxygen Delivery Method Room Air Weight: 128 lb 15.527 oz Body Mass Index (BMI) 21.5 Intake and Output for Last 24 Hours 11/25/20 11/26/20 11/27/20 23:59 23:59 23:59 Intake Total 1477.5 / 1477.5 Balance 1477.5 / 1477.5 General: Alert, Oriented x3, Cooperative, No apparent distress HEENT: Atraumatic, PERRLA, EOMI, Normocephalic Oral: Moist Mucosa Neck: Supple, No JVD Lungs: Clear to auscultation, Normal air movement, No rhonchi, No wheeze, No rales Cardiovascular: Regular rate, Regular Rhythm, Normal S1, Normal S2, No murmurs Abdomen: Soft, Non Tender, Non-Distended, No Hepato-splenomegaly Extremities: No edema, Capillary Refill Less than 3 Seconds Skin: No breakdown, Rash Present - Pruritic raised nonblanching lesions on her back and anterior thighs Musculoskeletal: No Tenderness to Palpation of Joints or Extremities Neurological: Neuro grossly intact, Sensory exam intact to light touch and pain Psych/Mental Status: Normal Affect, Appropriate Laboratory Results 11/26/20 13:00: WBC 11.6 H, RBC 5.14, Hgb 15.1 H, Hct 41.9, MCV 81.5, MCH 29.4, MCHC 36.0, RDW Std Deviation 42.8, RDW Coeff of Manuel 14.5, Plt Count 259, MPV 11.6, Immature Gran % (Auto) 0.400, Neut % (Auto) 60.0, Lymph % (Auto) 23.8, [place] % (Auto) 10.2 H, Eos % (Auto) 5.1 H, Baso % (Auto) 0.5, Absolute Neuts (auto) 6.9, Absolute Lymphs (auto) 2.75, Nucleated RBC % 0 11/26/20 13:00: Sodium 133 L, Potassium 3.1 L, Chloride 96 L, Carbon Dioxide 31.0, Anion Gap 6, BUN 18, Creatinine 0.86, Estim Creat Clear Calc 63.83, Est GFR (MDRD) Af Amer 88, Est GFR (MDRD) Non-Af 73, BUN/Creatinine Ratio 21.0 H, Glucose 102, Calcium 9.4, Troponin I < 0.015 11/26/20 16:00: Troponin I < 0.015 11/26/20 19:25: Troponin I < 0.015 11/27/20 04:38: WBC 7.7, RBC 4.88, Hgb 14.0, Hct 39.9, MCV 81.8, MCH 28.7, MCHC 35.1, RDW Std Deviation 44.3 H, RDW Coeff of Manuel 14.9 H, Plt Count 224, MPV 11.8, Immature Gran % (Auto) 0.300, Neut % (Auto) 44.9 L, Lymph % (Auto) 35.2, [place] % (Auto) 9.0, Eos % (Auto) 9.9 H, Baso % (Auto) 0.7, Absolute Neuts (auto) 3.4, Absolute Lymphs (auto) 2.69, Nucleated RBC % 0 11/27/20 04:38: Sodium 138, Potassium 3.9, Chloride 103, Carbon Dioxide 29.0, Anion Gap 6, BUN 14, Creatinine 0.67, Estim Creat Clear Calc 81.93, Est GFR (MDRD) Af Amer 118, Est GFR (MDRD) Non-Af 97, BUN/Creatinine Ratio 21.0 H, Glucose 101, Calcium 8.7, Triglycerides 132, Cholesterol 213 H, LDL Cholesterol 127, VLDL Cholesterol 26, HDL Cholesterol 60 Current Medications Acetaminophen (Acetaminophen 325 Mg Tablet) 650 mg PO Q6H PRN PRN PRN Reason: Pain Score 1-10/Temp > 100.7 F Last Admin: 11/26/20 19:30 Dose: 650 mg Documented by: Aspirin (Aspirin E.C. 81 Mg Tablet) [facility] Last Admin: 11/27/20 08:50 Dose: 81 mg Documented by: Atorvastatin Calcium (Atorvastatin Calcium 40 Mg Tablet) 40 mg PO QHS [facility] Last Admin: 11/26/20 21:07 Dose: 40 mg Documented by: Cyanocobalamin (Cyanocobalamin 500 Mcg Tablet) [facility] Last Admin: 11/27/20 08:50 Dose: 500 mcg Documented by: Enoxaparin Sodium (Enoxaparin 40 Mg/0.4 Ml Syringe) 40 mg SC DAILY [facility] Last Admin: 11/27/20 08:50 Dose: Not Given Documented by: Hydrochlorothiazide (Hydrochlorothiazide 12.5mg) 12.5 mg PO [facility] Last Admin: 11/27/20 08:50 Dose: 12.5 mg Documented by: Lorazepam (Lorazepam 0.5 Mg Tablet) 0.5 mg PO DAILY PRN PRN PRN Reason: ANXIETY Last Admin: 11/26/20 19:38 Dose: 0.5 mg Documented by: Melatonin (Melatonin 3 Mg Tablet) 3 mg PO QHS PRN PRN PRN Reason: INSOMNIA Nitroglycerin (Nitroglycerin (Inpatient Use) 0.4 Mg Tab.Subl) 0.4 mg SUBLINGUAL Q5M PRN PRN Reason: CARDIAC/CHEST PAIN Ondansetron HCl (Ondansetron 4 Mg/2 Ml Vial) 4 mg IV Q8H PRN PRN PRN Reason: NAUSEA/VOMITING Discharge Activity: Return to Normal Activity Call your doctor if you observe: Fever of 101 or Higher, Shortness of breath, Dizziness, Fainting spells, Swelling in the ankles, Chest pain, Increased palpitations (irregular heartbeat) Home Medications: Medications to take at Discharge aspirin 81 mg tablet,delayed release 81 mg PO QDAY 09/28/17 lorazepam 1 mg tablet 0.5 mg PO DAILY PRN PRN 09/28/17 ascorbate calcium (vitamin C) 500 mg tablet 500 mg PO DAILY 11/07/20 cholecalciferol (vitamin D3) 25 mcg (1,000 unit) capsule 25 mcg PO DAILY 11/07/20 cyanocobalamin (vitamin B-12) 500 mcg tablet 500 mcg PO DAILY 11/07/20 Hydrochlorothiazide [Hctz] 12.5 mg PO QAM 11/26/20 Atorvastatin Calcium [Lipitor] 40 mg PO QHS #30 tab 11/27/20 Following Prescriptions Were Given to Patient: Atorvastatin Calcium [Lipitor] 40 mg PO QHS #30 tab Transmission Status: Pending to [facility] [id number] Primary Care Physician: Luz Marina Martini MD [Primary Care Provider] - Please follow up with your Primary Care Physician in: 3-5 days Patient Instructions: Taking Blood Pressure Medications, ED Hypertension, New (Begin Treatment), ED High Blood Pressure ... Disposition: Home Minutes spent on discharge:: 35 Patient Condition:: Stable Medical Necessity - Tobacco Use Smoking Status: Current every day smoker Tobacco Use: Cigarettes Meaningful Use Info Meaningful Use Diagnoses (Choose all that apply): None applicable OBSV E&M: 36636 Observation care discharge
== END 2020-11-27 09:59 | disposition home or self-care (01) ==
LOC: ED 13:34 → PCU 14:26
PROVIDERS: Admitting Provider Family Medicine; Emergency Provider Emergency Medicine; PCP Internal Medicine; Visit Provider Family Medicine
DX: R07.89 Other chest pain (principal); R42 Dizziness and giddiness; F17.210 Nicotine dependence, cigarettes, uncomplicated; I10 Essential (primary) hypertension; Z82.49 Family history of ischemic heart disease and other diseases of the circulatory system; Z79.899 Other long term (current) drug therapy; Z79.82 Long term (current) use of aspirin; F41.9 Anxiety disorder, unspecified; E78.5 Hyperlipidemia, unspecified; R94.31 Abnormal electrocardiogram [ECG] [EKG]
CPT/HCPCS: 36415; 71045; 80048; 80061; 84484; 85025; 93005; 96360; 96361; 99218; 99285; 99406; J7030; A4216; G0378

== ENCOUNTER → 2020-12-06 12:32 | Outpatient (CLI) | payer OTHER, SELFPAY ==
[2020-11-21 09:39] VITALS: BMI 23.3
[2020-12-06 12:07] VITALS: BMI 22.3
--- NOTE | 2020-12-06 12:33 | CT_ITS ---
STUDY: LOW DOSE CT LUNG CANCER SCREENING REASON FOR EXAM: Female, 55 years old. Lung cancer screening -- 30 pack year history; asymptomatic; former smoker RADIATION DOSAGE (If Supplied By Facility): CTDIvol = ( 2.01 ) mGy, DLP = ( 66.95 ) mGycm TECHNIQUE: No contrast was administered. Low dose technique was utilized (average mAS-38 and kVp 120). 1.25 mm axial source images with a slice interval of 1.25-mm were reconstructed in lung windows. 2.5 mm axial source images with a slice interval of 2.5-mm were reconstructed in lung windows. 5.0 mm axial source images with a slice interval of 5.0-mm were reconstructed in soft tissue windows. Nodule measured using lung windows on PACS and/or independent workstation with automated measurement of minimum and maximum diameter. Nodule measurement reported as average diameter rounded to the nearest whole number. Growth is defined as an increase ins size of greater than 1.5 mm. COMPARISON: Comparison is made with prior examination dated 09/02/2015. NODULES: No suspicious nodules are seen. Emphysema: Mild degree of emphysematous changes. Findings suggest some scarring at both lung apices more prominent on the right side. Aorta: Unremarkable. Coronary arteries: Unremarkable. Heart: Unremarkable. Pulmonary artery: Unremarkable. Mediastinal nodes: Unremarkable. CT/Low Dose CT Lung Screening IMPRESSION: Lung-RADS category 2 - Continue annual screening with LDCT in 12 months. IMPORTANT NOTES FOR USE: ACR Lung-RADS Version 1.0 Assessment Categories Release Date: January 18, 2014 Category: Coded 0-4 bases on nodule(s) with highest degree of suspicion. Negative screen is defined as categories 1 and 2; a positive screen is defined as categories 3 and 4. Category 3 and 4A nodules that are unchanged on interval CT should be coded as category 2, and individuals returned to screening in 12 months. Category 4X: Category 3 or 4 nodules with additional imaging findings that increase the suspicion of lung cancer, such as spiculation, GGN that doubles in size in 1 year, enlarged lymph notes, etc. Category Modifiers: S (significant finding unrelated to lung cancer) and C (prior history of treated lung cancer) may be added to the 0-4 Lung-RADS Electronically Signed: Terry Pérez MD at 13:00 EDT , Service support ,
== END ==
PROVIDERS: PCP Internal Medicine; Referring Provider Nurse Practitioner Family; Visit Provider Nurse Practitioner Family
DX: Z87.891 Personal history of nicotine dependence (principal); Z12.2 Encounter for screening for malignant neoplasm of respiratory organs
CPT/HCPCS: 71271

== ENCOUNTER → 2020-12-27 09:54 | Outpatient (CLI) | payer OTHER, SELFPAY ==
[2020-12-27 09:10] VITALS: BMI 22.6
[2020-12-27 12:52] LABS: ALB/GLOB Ratio 1.2 RATIO (0.9-2.4); AST(SGOT) 25 U/L (15-37); Alanine Aminotransfer ALT/SGPT 52 U/L (13-56); Alkaline Phosphatase 86 U/L (45-117); Anion Gap 3 (5-15); BUN 13 mg/dL (7-18); BUN/Creat Ratio 19.5 RATIO (10-20); Calcium,Total 9.5 mg/dL (8.5-10.1); Chloride 101 mmol/L (98-107); Creatinine, Serum 0.67 mg/dL (0.55-1.02); EST Glomerular Filtration Rate 98 mL/min (>60); Est Glom Filt Rate - Afr Amer 118 mL/min (>60); Globulin 3.3 g/dL (2.2-4.2); Glucose 116 mg/dL (74-106); Potassium 4.3 mmol/L (3.5-5.1); Protein, Total 7.3 g/dL (6.4-8.2); Sodium Level 136 mmol/L (136-145)
== END ==
PROVIDERS: PCP Internal Medicine; Referring Provider Internal Medicine; Visit Provider Internal Medicine
DX: I10 Essential (primary) hypertension (principal)
CPT/HCPCS: 36415; 80053

== ENCOUNTER → 2021-05-26 09:21 | Outpatient (CLI) | payer OTHER, SELFPAY ==
[2021-05-26 12:40] LABS: Cholesterol 211 mg/dL (200); High Density Lipoprotein 56 mg/dL; Triglycerides 134 mg/dL; Very Low Density Lipoprotein 27 mg/dL (5-40)
== END ==
PROVIDERS: PCP Internal Medicine; Referring Provider Nurse Practitioner Family; Visit Provider Nurse Practitioner Family
DX: E78.00 Pure hypercholesterolemia, unspecified (principal); F41.1 Generalized anxiety disorder; I10 Essential (primary) hypertension
CPT/HCPCS: 36415; 80061; 84443

== ENCOUNTER 2021-10-25 09:34 | Outpatient (CLI) | payer OTHER, SELFPAY ==
[2021-10-25 12:34] LABS: Anion Gap 4 (5-15); BUN 14 mg/dL (7-18); BUN/Creat Ratio 20.2 RATIO (10-20); Calcium,Total 9.5 mg/dL (8.5-10.1); Chloride 100 mmol/L (98-107); Creatinine, Serum 0.69 mg/dL (0.55-1.02); EST Glomerular Filtration Rate 93 mL/min (>60); Est Glom Filt Rate - Afr Amer 112 mL/min (>60); Glucose 98 mg/dL (74-106); Potassium 4.4 mmol/L (3.5-5.1); Sodium Level 136 mmol/L (136-145)
== END 2021-10-25 23:59 | disposition short-term general hospital (02) ==
LOC: BIMLAB 09:36
PROVIDERS: PCP Internal Medicine; Referring Provider Internal Medicine; Visit Provider Internal Medicine
DX: I10 Essential (primary) hypertension (principal)
CPT/HCPCS: 36415; 80048

== ENCOUNTER 2021-12-19 14:52 | Outpatient (CLI) | payer OTHER, SELFPAY ==
--- NOTE | 2021-12-19 15:00 | CT_ITS ---
STUDY: LOW DOSE CT LUNG CANCER SCREENING REASON FOR EXAM: Female, 56 years old. Lung cancer screening -- and gt; 30 pk yr hx;current smoker;asymptomatic RADIATION DOSAGE (If Supplied By Facility): CTDIvol = ( 2.01 ) mGy, DLP = ( 63.94 ) mGycm TECHNIQUE: No contrast was administered. Low dose technique was utilized (average mAS-38 and kVp 120). 1.25 mm axial source images with a slice interval of 1.25-mm were reconstructed in lung windows. 2.5 mm axial source images with a slice interval of 2.5-mm were reconstructed in lung windows. 5.0 mm axial source images with a slice interval of 5.0-mm were reconstructed in soft tissue windows. Nodule measured using lung windows on PACS and/or independent workstation with automated measurement of minimum and maximum diameter. Nodule measurement reported as average diameter rounded to the nearest whole number. Growth is defined as an increase ins size of greater than 1.5 mm. COMPARISON: Comparison is made with prior study dated 12/06/2020. NODULES: No suspicious nodules are seen. Emphysema: Mild degree of emphysematous changes. Stable scarring at the lung apices there has been no change. Endobronchial lesion: None Aorta: Unremarkable Coronary arteries: Unremarkable Heart: Unremarkable Pulmonary artery: Unremarkable Mediastinal nodes: Unremarkable Other chest and abdominal findings: CT/Low Dose CT Lung Screening IMPRESSION: Lung-RADS category 2 - Continue annual screening with LDCT in 12 months. IMPORTANT NOTES FOR USE: ACR Lung-RADS Version 1.1 Assessment Categories Release Date: 2018 Category: Coded 0-4 bases on nodule(s) with highest degree of suspicion. Negative screen is defined as categories 1 and 2; a positive screen is defined as categories 3 and 4. Category 3 and 4A nodules that are unchanged on interval CT should be coded as category 2, and individuals returned to screening in 12 months. Category 4X: Category 3 or 4 nodules with additional imaging findings that increase the suspicion of lung cancer, such as spiculation, GGN that doubles in size in 1 year, enlarged lymph notes, etc. Category Modifiers: S (significant finding unrelated to lung cancer) Electronically Signed: Terry Pérez MD at 15:26 EDT ,
== END 2021-12-19 23:59 | disposition home or self-care (01) ==
PROVIDERS: PCP Internal Medicine; Referring Provider Nurse Practitioner Family; Visit Provider Nurse Practitioner Family
DX: Z87.891 Personal history of nicotine dependence (principal); Z12.2 Encounter for screening for malignant neoplasm of respiratory organs
CPT/HCPCS: 71271

== ENCOUNTER → 2022-04-26 | Outpatient (CLI) | payer OTHER, SELFPAY ==
--- NOTE | 2022-04-26 08:45 | BI_ITS ---
MAMMOGRAPHY - BILATERAL SCREENING 3-D TOMOSYNTHESIS REASON FOR EXAM: Female, 56 years old. Breast cancer screening. PERTINENT HISTORY: History of breast cancer in sister at age 54. TECHNIQUE: 2-D mammograms and 3-D Tomosynthesis of the breast (s) were performed. CAD was performed. COMPARISON: 07/22/2018, 10/12/2016. FINDINGS: The breast composition is heterogeneously dense that can obscure small breast masses. Stable normal axillary lymph nodes. No dense spiculated masses or suspicious microcalcifications are identified. No architectural distortion is identified. There is no skin thickening or retraction. BI/SCRN MAMM (CAD)W/MAURICE BILAT IMPRESSION: No interval change and no mammographic signs of malignancy. Routine yearly mammograms recommended. ASSESSMENT CATEGORY: BIRADS Category 2: Benign. A letter regarding these results will be sent to the patient by the facility within 30 days. FOLLOW UP RECOMMENDATION: Yearly follow up mammogram recommended. (A) Approximately 10% of breast cancers are not detected by mammography. A normal mammogram should not delay biopsy of a clinically suspicious abnormality. Electronically Signed: Te Zhang MD at 15:28 EDT ,
== END | disposition home or self-care (01) ==
LOC: OPBI 08:43
PROVIDERS: PCP Internal Medicine; Referring Provider Internal Medicine; Visit Provider Internal Medicine
DX: Z12.31 Encounter for screening mammogram for malignant neoplasm of breast (principal); Z80.3 Family history of malignant neoplasm of breast
CPT/HCPCS: 77063; 77067

== ENCOUNTER → 2022-07-10 | Outpatient (CLI) | payer OTHER, SELFPAY ==
[2022-07-10 12:33] LABS: Absolute Neutrophil Count 4.3 X10^3/uL (2.0-7.7); Basophil# 0.04 X10^3/uL; Basophil% 0.5 % (0-1); Eosinophils% 5.2 % (0-5); Hematocrit 40.9 % (37-47); Hemoglobin 14.5 g/dL (12.0-15.0); Lymphocyte % 29.7 % (19-41); Mean Corp Hgb Conc 35.5 g/dL (32-36); Mean Corpuscular Volume 81.8 fL (81-99); Mean Platelet Vol. 12.7 fl (6.2-12.0); Monocyte# 0.72 X10^3/uL; Monocyte% 9.3 % (0-10); NRBC Flagged by Analyzer 0 % (0-5); Neutrophil # 4.25 X10^3/uL (2.7-7.7); Neutrophil % 54.9 % (47-70); Platelet Count 192 K/mm3 (150-450); RBC Distribution Width SD 44.6 fl (35.1-43.9); White Blood Count 7.7 K/mm3 (4.4-11.0)
[2022-07-10 12:44] LABS: ALB/GLOB Ratio 1.3 RATIO (0.9-2.4); AST(SGOT) 14 U/L (15-37); Alanine Aminotransfer ALT/SGPT 26 U/L (13-56); Albumin, Serum 3.8 g/dL (3.2-5.0); Alkaline Phosphatase 72 U/L (45-117); Anion Gap 5 (5-15); BUN 14 mg/dL (7-18); BUN/Creat Ratio 19.1 RATIO (10-20); Calcium,Total 9.5 mg/dL (8.5-10.1); Chloride 102 mmol/L (98-107); Cholesterol 201 mg/dL (200); Creatinine, Serum 0.73 mg/dL (0.55-1.02); EST Glomerular Filtration Rate 87 mL/min (>60); Est Glom Filt Rate - Afr Amer 105 mL/min (>60); Globulin 2.9 g/dL (2.2-4.2); Glucose 108 mg/dL (74-106); High Density Lipoprotein 54 mg/dL; Potassium 4.8 mmol/L (3.5-5.1); Protein, Total 6.7 g/dL (6.4-8.2); Sodium Level 138 mmol/L (136-145); Triglycerides 208 mg/dL; Very Low Density Lipoprotein 42 mg/dL (5-40)
== END | disposition home or self-care (01) ==
LOC: BIMLAB 08:33
PROVIDERS: PCP Internal Medicine; Referring Provider Internal Medicine; Visit Provider Internal Medicine
DX: I10 Essential (primary) hypertension (principal)
CPT/HCPCS: 36415; 80053; 80061; 85025

== ENCOUNTER → 2023-01-22 | Outpatient (CLI) | payer OTHER, SELFPAY ==
--- NOTE | 2023-01-22 14:51 | CT_ITS ---
STUDY: LOW DOSE CT LUNG CANCER SCREENING REASON FOR EXAM: Female, 57 years old. Lung cancer screening -- and gt;20 pk yr hx;current smoker;asymptomatic RADIATION DOSAGE (If Supplied By Facility): CTDIvol = ( 2.35 ) mGy, DLP = ( 81.88 ) mGycm TECHNIQUE: No contrast was administered. Low dose technique was utilized (average mAS-38 and kVp 120). 1.25 mm axial source images with a slice interval of 1.25-mm were reconstructed in lung windows. 2.5 mm axial source images with a slice interval of 2.5-mm were reconstructed in lung windows. 5.0 mm axial source images with a slice interval of 5.0-mm were reconstructed in soft tissue windows. COMPARISON: Comparison is made with prior study dated December 19, 2021. NODULES: No suspicious nodules are present. Emphysema: Stable scarring at the lung apices more pronounced in the right apex. Hyperinflation. Mild degree of emphysematous changes. Endobronchial lesion: Unremarkable. Aorta: Unremarkable. CORONARY ARTERIES: Coronary artery calcification is not seen. Heart: Unremarkable. Pulmonary artery: Unremarkable. Mediastinal nodes: Small benign-appearing mediastinal lymph nodes. Other chest and abdominal findings: CT/Low Dose CT Lung Screening IMPRESSION: Lung-RADS category 2 - Continue annual screening with LDCT in 12 months. IMPORTANT NOTES FOR USE: ACR Lung-RADS Version 1.1 Assessment Categories Release Date: 2018 Category: Coded 0-4 bases on nodule(s) with highest degree of suspicion. Negative screen is defined as categories 1 and 2; a positive screen is defined as categories 3 and 4. Category 3 and 4A nodules that are unchanged on interval CT should be coded as category 2, and individuals returned to screening in 12 months. Category 4X: Category 3 or 4 nodules with additional imaging findings that increase the suspicion of lung cancer, such as spiculation, GGN that doubles in size in 1 year, enlarged lymph notes, etc. Category Modifiers: S (significant finding unrelated to lung cancer) Electronically Signed: Terry Pérez MD at 15:18 EDT ,
== END | disposition home or self-care (01) ==
LOC: CT 14:51
PROVIDERS: PCP Internal Medicine; Referring Provider Nurse Practitioner Family; Visit Provider Nurse Practitioner Family
DX: Z87.891 Personal history of nicotine dependence (principal)
CPT/HCPCS: 71271

== ENCOUNTER → 2023-03-15 | Outpatient (CLI) | payer OTHER, SELFPAY ==
[2023-03-15 12:48] LABS: ALB/GLOB Ratio 1.3 RATIO (0.9-2.4); AST(SGOT) 14 U/L (15-37); Alanine Aminotransfer ALT/SGPT 23 U/L (13-56); Alkaline Phosphatase 74 U/L (45-117); Anion Gap 3 (5-15); BUN 12 mg/dL (7-18); BUN/Creat Ratio 20.7 RATIO (10-20); Calcium,Total 9.6 mg/dL (8.5-10.1); Chloride 102 mmol/L (98-107); Cholesterol 225 mg/dL (200); Creatinine, Serum 0.58 mg/dL (0.55-1.02); EST Glomerular Filtration Rate 113 mL/min (>60); Est Glom Filt Rate - Afr Amer 137 mL/min (>60); Globulin 3.1 g/dL (2.2-4.2); Glucose 108 mg/dL (74-106); High Density Lipoprotein 59 mg/dL; Potassium 4.6 mmol/L (3.5-5.1); Protein, Total 7.1 g/dL (6.4-8.2); Sodium Level 138 mmol/L (136-145); Triglycerides 167 mg/dL; Very Low Density Lipoprotein 33 mg/dL (5-40)
[2023-03-15 12:50] LABS: Hemoglobin A1c 4.8 % (3.8-5.6)
== END | disposition home or self-care (01) ==
LOC: BIMLAB 09:02
PROVIDERS: PCP Internal Medicine; Referring Provider Internal Medicine; Visit Provider Internal Medicine
DX: E78.5 Hyperlipidemia, unspecified (principal); R73.9 Hyperglycemia, unspecified
CPT/HCPCS: 36415; 80053; 80061; 83036

== ENCOUNTER → 2023-03-28 | Outpatient (CLI) | payer OTHER, SELFPAY ==
--- NOTE | 2023-03-28 07:07 | CT_ITS ---
STUDY: CT ABDOMEN AND PELVIS WITH CONTRAST REASON FOR EXAM: Female, 57 years old. Left lower quadrant pain. Constipation. Blood is seen within the stool. RADIATION DOSAGE (If Supplied By Facility): CTDIvol = ( 15.12 ) mGy, DLP = ( 654.81 ) mGycm TECHNIQUE: Transaxial images were obtained from the dome of the diaphragm to the symphysis pubis with oral contrast. Oral and amp; IV Readi-CAT and amp; 75mL Isovue-370 was administered. Sagittal and coronal images were reconstructed. Individualized dose optimization techniques were used for this CT. COMPARISON: None. FINDINGS: The visualized lung bases are unremarkable. The visualized portions of the heart are within normal limits. There is a 1.5 cm x 1.2 cm cyst in the medial upper aspect of the right lobe of the liver. A similar appearing cyst measuring 7.5 mm is seen in the central anterior aspect of the right lobe. Scattered subcentimeter cysts are seen in both lobes of the liver. Normal gallbladder and extrahepatic biliary system. Normal spleen. Normal pancreas. Normal bilateral adrenal glands. Normal right kidney. Normal left kidney. Normal visualized stomach. Normal small intestine. There are multiple colonic diverticula consistent with diverticulosis. The appendix is visualized and appears normal. Normal abdominal aorta. Normal inferior vena cava. There is borderline retroperitoneal lymphadenopathy with enlarged nodes no greater than 10mm in the short axis diameter. Small benign-appearing lymph nodes are seen in both groins. Normal urinary bladder. There is a small umbilical hernia containing fat. Loss of the normal lumbar lordosis. CT/Abdomen/Pelvis WITH Contrast IMPRESSION: Sigmoid diverticulosis. Multiple small intrahepatic cysts. Electronically Signed: Terry Pérez MD at 8:53 EDT ,
== END | disposition home or self-care (01) ==
LOC: CT 07:06
PROVIDERS: PCP Internal Medicine; Referring Provider Internal Medicine; Visit Provider Internal Medicine
DX: R10.9 Unspecified abdominal pain (principal); K92.1 Melena
CPT/HCPCS: 74177; Q9967

== ENCOUNTER 2023-04-17 06:06 | Day surgery (SDC) | payer OTHER, SELFPAY ==
--- NOTE | 2023-04-17 | COLBX_PTH ---
PATIENT: NAV VILLA LOC: EN U#:[id number] AGE/SX: 57/F ROOM: RE04/17/[address]: Dr. Marly Dennis MD : 1965 BED: DIS: 04/17/2023 SPEC #: [id number] RECD: 04/17/23 11:51 STATUS: DARRIUS REJonah #: [id number] ROC: 04/17/23 00:[address]: Marly Dennis DEPT: SURGICAL PATHOLOGY RECD BY: Yg Jackson ENTERED: 04/17/23 11:52 SP TYPE: COLON BX OTHR DR: Dr. Luz Marina Martini MD Tissues: Sigmoid colon biopsy Procedures: Surgery Specimen Level IV HEADER OPERATION: Colonoscopy PRE-OP DIAGNOSIS: Bright red blood per rectum TISSUE SUBMITTED: Sigmoid MICROSCOPIC DIAGNOSIS Sigmoid colon polyp, biopsy: Hyperplastic polyp. AM:whitley 04/18/2023 MICROSCOPIC DESCRIPTION Slides are reviewed. GROSS DESCRIPTION Received in fixative is one container labeled with the patient's name and designated sigmoid polyp. The specimen consists of a harris-pink polyp measuring 0.9 x 0.5 x 0.3 cm. The specimen is totally submitted in one cassette. / SJ:whitley 04/17/2023 TC:1 CPT: 33661
[2023-04-17 06:38] VITALS: BP 128/77; PULSE 76; RESP 18; TEMP 36.2; O2SAT 100; BMI 22.3
[2023-04-17] MEDS: Lactated Ringers 1,000 ML 15 ML IV (06:48)
--- NOTE | 2023-04-17 07:19 | PCM.HP.BLA ---
History and Physical Date of Admission: 04/17/23 Date of Service: 04/04/23 MR#: [id number] Acct: [id number] Name: NAV VILLA Rep #: [id number] : 1965 Provider: Dr. Marly Dennis MD Age/Sex: 57/F Location: [facility] Status: Signed Intake Vital Signs 03/15/2308:25 04/04/2313:46 Height 5 ft 4 in Weight: 130 lb 2 oz BMI 22.3 BP 108/76 115/78 Blood Pressure Location Rt brachial Rt brachial Position Sitting Sitting Respiration 18 17 Pulse 74 66 Pulse Source Monitor Monitor Temp 96.3 F L 97.9 F Temp Source Temporal Temporal Pulse Oximetry (%) 98 95 Oxygen Delivery Method room air room air Intake Visit Reasons: C-Scope/Blood in stool/Abdominal Pain Chief Complaint: c-scope/blood stool/abd pain Is patient in pain?: No Allergies No Known Allergies Allergy (Verified 04/04/23 13:48) Medications aspirin 81 mg tablet,delayed release (Erin Low Dose Aspirin) 81 mg PO DAILY 04/03/22 [History Confirmed 04/04/23] lorazepam 1 mg tablet (Ativan) 0.5 mg (1/2 x 1 mg) PO DAILY PRN PRN Anxiety #15 tabs 04/03/22 [Rx Confirmed 04/04/23] cholecalciferol (vitamin D3) 50 mcg (2,000 unit) capsule 50 mcg PO DAILY 01/22/23 [History Confirmed 04/04/23] hydrochlorothiazide 25 mg tablet 25 mg PO QAM #90 tabs 01/30/23 [Rx Confirmed 04/04/23] mecobalamin (vitamin B12) 1,000 mcg chewable tablet 5,000 mcg PO DAILY 03/15/23 [History Confirmed 04/04/23] PFSH Medical History Abdominal pain Anxiety Blood in stool Breast cancer screening Change in skin mole Colon cancer screening Elevated blood sugar Encounter for screening for malignant neoplasm of lung in current smoker with 30 pack year history or greater Flu vaccine need Health care maintenance High cholesterol Hyperlipidemia Rash Right elbow pain Right shoulder pain Right thigh pain Tobacco use disorder, continuous Family History Mother Arthritis Myocardial infarction Heart diseaseSister Breast cancerFather Diabetes Lung cancerBrother Lung cancer Social History Smoking Status: Current every day smoker (1/2 ppd) tobacco type: cigarettes Tobacco: How many years used: 30 Electronic Cigarette Use: not used how long ago did patient quit smoking: currently smoking about 0.5ppd/day second hand exposure: Yes quit status: considering quitting counseling given: provider counseling alcohol intake: current alcohol intake frequency: a few times a month Alcohol type: wine substance use type: does not use HPI HPI HPI: 57-year-old female presents due to history of bright red blood per rectum about a month ago. Patient states she had abdominal pain and then had loose stools and some bright red blood associated?moderate amount per patient. Patient denies any history of hemorrhoids. Prior to having the abdominal pain patient did have corn and she does have a family history of diverticulosis/lightest patient did have a CT abdomen pelvis did show sigmoid diverticulosis. Patient has been avoiding corn since. Patient has had bowel movements daily since has not had any further bleeding. Patient's never had a colonoscopy. Patient has no family history of colon cancer. Patient denies any chronic abdominal pain/nausea/vomiting/reflux. ROS General General: No weight change, appetite, fatigue, colon cancer, breast cancer or weakness HEENT HEENT: No difficulty swallowing, eye injury, eye surgery, swollen glands or hoarseness Endo Endocrine: No thyroid disease, diabetes mellitus, thyroid cancer, Hair loss, heat intolerance or cold intolerance Skin Skin: Yes changing moles; No rash Musc Musculoskeletal: Yes arthritis; No back problems, rheumatoid arthritis, gout or joint pain Cardio Cardiovascular: Yes high blood pressure; No murmur, pacemaker, heart disease, atrial fibrillation, heart attack, heart stent, palpitations, shortness of breat with exertion or chest pain Psych Psychiatric: Yes anxiety; No depression or hearing voices Resp Respiratory: No shortness of breath, No sleep apnea, No cough, No COPD, No asthma, Yes emphysema and No wheezing Gastro Gastrointestinal: No abdominal pain, No nausea or vomiting, Yes diarrhea, Yes constipation, Yes blood in stool, No acid reflux, No hemorrhoids, No ulcers, No gallbladder problem and No black,tarry stools Francisco Javier Hematologic: No blood thinners, No blood disorders, No bleeding, No anemia and No blood clots Neuro Neurologic: No system reviewed and no additional complaints, except as documented, No as per HPI, No abnormal gait, No abnormal hearing, No abnormal movements, No abnormal speech, No behavioral changes, No burning sensations, No confusion, No convulsions, No disequilibrium, No dizziness, No localized weakness, No frequent falls, No headache(s), No lack of coordination, No loss of vision, No memory loss, No numbness, No other visual disturbances, No radicular pain, No restless legs, No sensory deficit, No syncope, No tingling, No tremor(s), No weakness and No other Exam Const General: cooperative, healthy appearing, comfortable and no acute distress HENMT Head: normocephalic and atraumatic Neck Neck: supple Resp Effort & Inspection: normal respiratory effort Cardio Rate: regular rate GI Inspection: non-distended Palpation: soft, no hernias and nontender Skin General: no rashes or lesions noted Neuro General: CN's II-XI intact bilaterally Extrem General: normal to inspection Psych Mental Status: mental status grossly normal Attitude: cooperative Assessment and Plan Assessment and Plan (1) BRBPR (bright red blood per rectum): Status: Acute Orders: Orders Colonoscopy 04/17/23 Plan I have discussed the above with the patient. I have offered the patient colonoscopy for evaluation. I have explained the risks/benefits of the procedure and described the procedure. I have discussed the risks with the patient, including but not limited to: infection, bleeding, perforation of the GI tract requiring emergency surgery, inability to complete the procedure, injury to any internal organs, complications of anesthesia, etc. - the patient understands and agrees to proceed. I have answered all the patient's questions to the patient's satisfaction and the patient has no further questions. The patient has been given instructions for the colon cleansing preparation. 1 day clears, MiraLAX Dulcolax split prep. Marly Dennis M.D. Pager: [phone] [facility] [address] [place] [address], [facility], [address] [place] [address] Office: [phone] Coding Level of Care Code Off vis,new,level 3 Diagnoses BRBPR (bright red blood per rectum) K62.5 04/05/23 0753 <Electronically signed by Marly Dennis MD> Date Marly Dennis MD
[2023-04-17 08:00] VITALS: BP 112/67; BP 128/77; PULSE 60; RESP 16; TEMP 36.4; O2SAT 97
--- NOTE | 2023-04-17 08:04 | OP.COLON_ITS ---
Patient Name: Felicity Shell Procedure Date: 04/17/2023 7:27 AM Date of : 1965 Age: 57 Procedure: Colonoscopy Indications: Rectal bleeding Providers: Marly Dennis MD Medicines: Monitored Anesthesia Care Patient Profile: Last Colonoscopy: none. The patient's first colonoscopy is today. Complications: No immediate complications. Procedure: Pre-Anesthesia Assessment: - Prior to the procedure, a History and Physical was performed, and patient medications and allergies were reviewed. The patient's tolerance of previous anesthesia was also reviewed. The risks and benefits of the procedure and the sedation options and risks were discussed with the patient. All questions were answered, and informed consent was obtained. Prior Anticoagulants: The patient has taken no previous anticoagulant or antiplatelet agents. ASA Grade Assessment: Per anesthesia. After reviewing the risks and benefits, the patient was deemed in satisfactory condition to undergo the procedure. After I obtained informed consent, the scope was passed under direct vision. Throughout the procedure, the patient's blood pressure, pulse, and oxygen saturations were monitored continuously. The Colonoscope was introduced through the anus and advanced to the cecum, identified by the appendiceal orifice, ileocecal valve and palpation. The colonoscopy was performed without difficulty. The patient tolerated the procedure well. The quality of the bowel preparation was good. Scope In: 7:33:57 AM Scope Withdrawal Time 0 hours 14 minutes 27 seconds Scope Out: 7:54:35 AM Total Procedure Duration Time 0 hours 20 minutes 38 seconds Findings: Hemorrhoids were found on perianal exam. Non-bleeding internal hemorrhoids were found. The hemorrhoids were Grade I (internal hemorrhoids that do not prolapse). Multiple mostly small and some medium diverticula were found in the sigmoid colon, descending colon and transverse colon. A less than 5 mm polyp was found in the sigmoid colon. The polyp was semi-pedunculated. The polyp was removed with a hot snare. Resection and retrieval were complete. The exam was otherwise without abnormality. Impression: - Hemorrhoids found on perianal exam. - Non-bleeding internal hemorrhoids. - Diverticulosis in the sigmoid colon, in the descending colon and in the transverse colon. - One less than 5 mm polyp in the sigmoid colon, removed with a hot snare. Resected and retrieved. - The examination was otherwise normal. Recommendation: - Discharge patient to home. - High fiber diet. - Continue present medications. - Await pathology results. - Repeat colonoscopy in 5-10 years for surveillance based on pathology results. Procedure Code(s): --- Professional --- 31660, Colonoscopy, flexible; with removal of tumor(s), polyp(s), or other lesion(s) by snare technique Diagnosis Code(s): --- Professional --- K64.0, First degree hemorrhoids D12.5, Benign neoplasm of sigmoid colon K62.5, Hemorrhage of anus and rectum K57.30, Diverticulosis of large intestine without perforation or abscess without bleeding CPT copyright 2017 [employer]. All rights reserved. The codes documented in this report are preliminary and upon manager billing review may be revised to meet current compliance requirements. MD Marly Aguirre MD 04/17/2023 8:04:23 AM This report has been signed electronically. Number of Addenda: 0 Note Initiated On: 04/17/2023 7:27 AM
[2023-04-17 08:05] VITALS: BP 100/58; BP 128/77; PULSE 63; RESP 16; O2SAT 97
--- NOTE | 2023-04-17 08:05 | OP.CCLET_ITS ---
04/17/2023 Luz Marina Martini MD [address] [place] [address] [place] [address] Re : Colonoscopy procedure for Felicity Shell Dear Dr. Martini This procedure was performed on Monday, April 17, 2023. My impressions and recommendations are as follows: Impressions : - Hemorrhoids found on perianal exam. - Non-bleeding internal hemorrhoids. - Diverticulosis in the sigmoid colon, in the descending colon and in the transverse colon. - One less than 5 mm polyp in the sigmoid colon, removed with a hot snare. Resected and retrieved. - The examination was otherwise normal. Recommendations : - Discharge patient to home. - High fiber diet. - Continue present medications. - Await pathology results. - Repeat colonoscopy in 5-10 years for surveillance based on pathology results. My findings are described in the full procedure note, which is enclosed. If I can be of further assistance, please feel free to contact me at Doctor phone number(s): , Work: . Sincerely, MD Marly Aguirre MD 04/17/2023 8:04:23 AM This report has been signed electronically.
[2023-04-17 08:10] VITALS: BP 128/77; BP 94/65; PULSE 64; RESP 16; O2SAT 97
[2023-04-17 08:15] VITALS: BP 102/72; BP 128/77; PULSE 70; RESP 16; TEMP 36.4; O2SAT 97
[2023-04-17 08:29] VITALS: BP 128/77
== END 2023-04-17 08:44 | disposition home or self-care (01) ==
LOC: EN 06:09 → AC 06:09
PROVIDERS: PCP Internal Medicine; Referring Provider Internal Medicine; Visit Provider Surgery
PROC: 0DJD8ZZ Inspection of Lower Intestinal Tract, Via Natural or Artificial Opening Endoscopic (ICD-10-PCS; CPT 45378; principal; 2023-04-17 07:25)
DX: K63.5 Polyp of colon (principal); J43.9 Emphysema, unspecified; K57.30 Diverticulosis of large intestine without perforation or abscess without bleeding; K62.5 Hemorrhage of anus and rectum; K64.0 First degree hemorrhoids; E78.00 Pure hypercholesterolemia, unspecified; F17.210 Nicotine dependence, cigarettes, uncomplicated; K64.4 Residual hemorrhoidal skin tags; Z79.82 Long term (current) use of aspirin; Z79.899 Other long term (current) drug therapy; I10 Essential (primary) hypertension; Z87.19 Personal history of other diseases of the digestive system
CPT/HCPCS: 45385; 88305; J7120; J2405

== ENCOUNTER → 2023-04-22 | Outpatient (CLI) | payer OTHER, SELFPAY ==
[2023-04-22 10:16] LABS: Absolute Lymphocyte Count 1.95 X10^3/uL (0.83-4.51); Basophil# 0.06 X10^3/uL; Basophil% 0.7 % (0-1); Eosinophil# 0.51 X10^3/uL; Eosinophils% 6.2 % (0-5); Hematocrit 42.5 % (37-47); Hemoglobin 15.2 g/dL (12.0-15.0); Lymphocyte # 1.95 X10^3/ul (0.83-4.51); Lymphocyte % 23.8 % (19-41); Mean Corp Hgb Conc 35.8 g/dL (32-36); Mean Corpuscular Hgb 29.2 pg (27.0-32.0); Mean Corpuscular Volume 81.6 fL (81-99); Mean Platelet Vol. 11.7 fl (6.2-12.0); Monocyte# 0.67 X10^3/uL; Monocyte% 8.2 % (0-10); NRBC Flagged by Analyzer 0 % (0-5); Neutrophil # 4.98 X10^3/uL (2.7-7.7); Neutrophil % 60.7 % (47-70); Platelet Count 208 K/mm3 (150-450); RBC Distribution Width CV 15.6 % (11.6-14.6); RBC Distribution Width SD 46.4 fl (35.1-43.9); Red Blood Count 5.21 M/mm3 (4.2-5.4); White Blood Count 8.2 K/mm3 (4.4-11.0)
[2023-04-22 10:34] LABS: ALB/GLOB Ratio 1.1 RATIO (0.9-2.4); AST(SGOT) 11 U/L (15-37); Alanine Aminotransfer ALT/SGPT 28 U/L (13-56); Albumin, Serum 3.9 g/dL (3.2-5.0); Alkaline Phosphatase 78 U/L (45-117); Amylase 29 U/L (25-115); Anion Gap 2 (5-15); BUN 13 mg/dL (7-18); BUN/Creat Ratio 18.2 RATIO (10-20); Calcium,Total 9.3 mg/dL (8.5-10.1); Chloride 100 mmol/L (98-107); Creatinine, Serum 0.72 mg/dL (0.55-1.02); EST Glomerular Filtration Rate 89 mL/min (>60); Est Glom Filt Rate - Afr Amer 108 mL/min (>60); GGTP 13 U/L (5-55); Globulin 3.5 g/dL (2.2-4.2); Glucose 113 mg/dL (74-106); Lipase 28 U/L (13-75); Potassium 4.3 mmol/L (3.5-5.1); Protein, Total 7.4 g/dL (6.4-8.2); Sodium Level 135 mmol/L (136-145)
== END | disposition home or self-care (01) ==
PROVIDERS: PCP Internal Medicine; Referring Provider Physician Assistant; Visit Provider Physician Assistant
DX: R30.0 Dysuria (principal); R10.11 Right upper quadrant pain
CPT/HCPCS: 36415; 80053; 82150; 82977; 83690; 85025; 87086

== ENCOUNTER → 2023-04-29 | Outpatient (CLI) | payer OTHER, SELFPAY ==
--- NOTE | 2023-04-29 08:19 | BI_ITS ---
MAMMOGRAPHY - BILATERAL SCREENING REASON FOR EXAM: Female, 57 years old. Routine annual screening examination. PERTINENT HISTORY: Sister with breast cancer. TECHNIQUE: Digital bilateral breast maurice (3D mammographic acquisition) in the CC and MLO projections. 2-D mediolateral oblique (MLO) and craniocaudad (CC) views of both breasts were obtained. CAD: Full Field Digital Mammography with Computer Added Detection was performed. COMPARISON: Comparison is made with prior study April 26, 2022 and July 22, 2018. FINDINGS: Breast Composition: The breasts are extremely dense, which lowers the sensitivity of mammography. There are no dominant masses or suspicious calcifications. No other significant abnormalities are identified. There has been no significant change since the prior study. BI/SCRN MAMM (CAD)W/MAURICE BILAT IMPRESSION: Stable bilateral screening mammogram. Yearly follow-up mammogram recommended. (A) ASSESSMENT CATEGORY: BIRADS Category 1: Negative. A letter regarding these results will be sent to the patient by the facility within 30 days. Approximately 10% of breast cancers are not detected by mammography. A normal mammogram should not delay biopsy of a clinically suspicious abnormality. [id number] Electronically Signed: Terry Pérez MD at 10:31 EDT ,
== END | disposition home or self-care (01) ==
LOC: OPBI 08:18
PROVIDERS: PCP Internal Medicine; Referring Provider Internal Medicine; Visit Provider Internal Medicine
DX: Z12.31 Encounter for screening mammogram for malignant neoplasm of breast (principal); Z80.3 Family history of malignant neoplasm of breast
CPT/HCPCS: 77063; 77067

== ENCOUNTER → 2024-02-06 | Outpatient (CLI) | payer OTHER, SELFPAY ==
[2024-02-06 16:42] LABS: Absolute Lymphocyte Count 2.31 X10^3/uL (0.83-4.51); Absolute Neutrophil Count 4.6 X10^3/uL (2.0-7.7); Basophil# 0.02 X10^3/uL; Basophil% 0.3 % (0-1); Eosinophil# 0.36 X10^3/uL; Eosinophils% 4.6 % (0-5); Hemoglobin 13.3 g/dL (12.0-15.0); Lymphocyte # 2.31 X10^3/ul (0.83-4.51); Lymphocyte % 29.4 % (19-41); Mean Corp Hgb Conc 35.9 g/dL (32-36); Mean Corpuscular Hgb 29.1 pg (27.0-32.0); Mean Platelet Vol. 11.9 fl (6.2-12.0); Monocyte% 7.6 % (0-10); NRBC Flagged by Analyzer 0 % (0-5); Neutrophil # 4.55 X10^3/uL (2.7-7.7); Neutrophil % 57.8 % (47-70); Platelet Count 197 K/mm3 (150-450); RBC Distribution Width SD 46.7 fl (35.1-43.9); Red Blood Count 4.57 M/mm3 (4.2-5.4); White Blood Count 7.9 K/mm3 (4.4-11.0)
[2024-02-06 16:58] LABS: ALB/GLOB Ratio 1.4 RATIO (0.9-2.4); AST(SGOT) 15 U/L (15-37); Alanine Aminotransfer ALT/SGPT 23 U/L (13-56); Albumin, Serum 3.8 g/dL (3.2-5.0); Alkaline Phosphatase 64 U/L (45-117); Anion Gap 4 (5-15); BUN 12 mg/dL (7-18); BUN/Creat Ratio 19.5 RATIO (10-20); Calcium,Total 8.7 mg/dL (8.5-10.1); Chloride 104 mmol/L (98-107); Cholesterol 211 mg/dL (200); Creatinine, Serum 0.62 mg/dL (0.55-1.02); EST Glomerular Filtration Rate 106 mL/min (>60); Est Glom Filt Rate - Afr Amer 128 mL/min (>60); Globulin 2.8 g/dL (2.2-4.2); Glucose 96 mg/dL (74-106); High Density Lipoprotein 48 mg/dL; Potassium 3.7 mmol/L (3.5-5.1); Protein, Total 6.6 g/dL (6.4-8.2); Sodium Level 138 mmol/L (136-145); Triglycerides 203 mg/dL; Very Low Density Lipoprotein 41 mg/dL (5-40)
== END | disposition home or self-care (01) ==
LOC: BIMLAB 14:39
PROVIDERS: PCP Internal Medicine; Visit Provider Internal Medicine
DX: Z00.00 Encounter for general adult medical examination without abnormal findings (principal)
CPT/HCPCS: 36415; 80053; 80061; 85025

== ENCOUNTER → 2024-02-25 | Outpatient (CLI) | payer OTHER, SELFPAY ==
--- NOTE | 2024-02-25 13:26 | CT_ITS ---
STUDY: LOW DOSE CT LUNG CANCER SCREENING REASON FOR EXAM: Female, 58 years old. Lung cancer screening -- and gt; 20 pk yr hx;former smoker;asymtpomatic RADIATION DOSAGE (If Supplied By Facility): CTDIvol = ( 2.01 ) mGy, DLP = ( 69.47 ) mGycm TECHNIQUE: No contrast was administered. Low dose technique was utilized (average mAS-38 and kVp 120). 1.25 mm axial source images with a slice interval of 1.25-mm were reconstructed in lung windows. 2.5 mm axial source images with a slice interval of 2.5-mm were reconstructed in lung windows. 5.0 mm axial source images with a slice interval of 5.0-mm were reconstructed in soft tissue windows. COMPARISON: Comparison is made with prior study dated January 22, 2023. NODULES: No suspicious nodules are seen. Emphysema: Stable scarring at the lung apices more pronounced at the right lung apex. Hyperinflation. Mild degree of emphysematous changes. Endobronchial lesion: None Aorta: Unremarkable CORONARY ARTERIES: Coronary artery calcification is not seen. Heart: Unremarkable Pulmonary artery: Unremarkable Mediastinal nodes: Remarkable Other chest and abdominal findings: CT/Low Dose CT Lung Screening IMPRESSION: Lung-RADS category 2 - Continue annual screening with LDCT in 12 months. IMPORTANT NOTES FOR USE: ACR Lung-RADS Version 1.1 Assessment Categories Release Date: 2018 Category: Coded 0-4 bases on nodule(s) with highest degree of suspicion. Negative screen is defined as categories 1 and 2; a positive screen is defined as categories 3 and 4. Category 3 and 4A nodules that are unchanged on interval CT should be coded as category 2, and individuals returned to screening in 12 months. Category 4X: Category 3 or 4 nodules with additional imaging findings that increase the suspicion of lung cancer, such as spiculation, GGN that doubles in size in 1 year, enlarged lymph notes, etc. Category Modifiers: S (significant finding unrelated to lung cancer) Electronically Signed: Terry Pérez MD at 14:06 EDT ,
== END | disposition home or self-care (01) ==
LOC: CT 13:25
PROVIDERS: PCP Internal Medicine; Referring Provider Nurse Practitioner Family; Visit Provider Nurse Practitioner Family
DX: Z12.2 Encounter for screening for malignant neoplasm of respiratory organs (principal); Z87.891 Personal history of nicotine dependence
CPT/HCPCS: 71271

== ENCOUNTER → 2024-04-30 | Outpatient (CLI) | payer OTHER, SELFPAY ==
--- NOTE | 2024-04-30 10:27 | BI_ITS ---
MAMMOGRAPHY - BILATERAL SCREENING 3-D TOMOSYNTHESIS REASON FOR EXAM: Female, 58 years old. Breast Cancer Screening PERTINENT HISTORY: No significant family history. TECHNIQUE: 2-D mammograms and 3-D Tomosynthesis of the breast (s) were performed. CAD was performed. COMPARISON: 04/29/2023 FINDINGS: The breast composition is Extermely dense tissue. Scattered benign calcifications are seen. No dense spiculated masses or suspicious microcalcifications are identified. No architectural distortion is identified. There is no skin thickening or retraction. There has been no significant change since the prior study. BI/SCRN MAMM (CAD)W/MAURICE BILAT IMPRESSION: No mammographic signs of malignancy. Routine yearly mammograms recommended. ASSESSMENT CATEGORY: BIRADS Category 1: Negative. A letter regarding these results will be sent to the patient by the facility within 30 days. FOLLOW UP RECOMMENDATION: Yearly follow up mammogram recommended. (A) Approximately 10% of breast cancers are not detected by mammography. A normal mammogram should not delay biopsy of a clinically suspicious abnormality. Electronically Signed: Hever Bryson MD at 13:17 EDT ,
== END | disposition home or self-care (01) ==
LOC: OPBI 10:27
PROVIDERS: PCP Internal Medicine; Referring Provider Internal Medicine; Visit Provider Internal Medicine
DX: Z12.31 Encounter for screening mammogram for malignant neoplasm of breast (principal)
CPT/HCPCS: 77063; 77067

== ENCOUNTER → 2024-06-17 | Outpatient (CLI) | payer OTHER, SELFPAY ==
[2024-06-23 12:09] LABS: HPV APTIMA, High Risk Negative (Negative)
== END | disposition home or self-care (01) ==
LOC: LABSPEC 16:02
PROVIDERS: PCP Internal Medicine; Referring Provider Nurse Practitioner Family; Visit Provider Nurse Practitioner Family
DX: Z12.4 Encounter for screening for malignant neoplasm of cervix (principal)
CPT/HCPCS: 87624; 88175; G0145

== ENCOUNTER → 2024-07-16 | Outpatient (CLI) | payer OTHER, SELFPAY ==
--- NOTE | 2024-07-16 13:59 | US_ITS ---
INDICATION: cervical mass -- postmenopausal bleeding EXAMINATION: Ultrasound US Pelvis Non OB Complete With Transvaginal Imaging TECHNIQUE: Transabdominal and transvaginal pelvic ultrasound was performed. Grayscale, spectral waveform, and color flow Doppler evaluation of the adnexa. COMPARISON: None. FINDINGS: UTERUS: Anteverted. The uterus measures 5.9 x 4.5 x 2.9 cm. There is no uterine mass. The endometrial stripe measures 17 mm in AP diameter which is thickened for postmenopausal patient. There are multiple nabothian cysts. Irregular appearance of the cervix without discrete mass. RIGHT OVARY: Measures 1.8 x 1.7 x 0.9 cm. Non-enlarged, normal echogenicity. There is normal arterial inflow and venous outflow present in the right ovary. LEFT OVARY: Measures 1.8 x 1.6 x 1 cm. Non-enlarged, normal echogenicity. There is normal arterial inflow and venous outflow present in the left ovary. FREE FLUID: None. US/Pelvic w/ Transvaginal IMPRESSION: Thickened endometrium in a postmenopausal patient. Differential includes polyp, endometrial hyperplasia or endometrial carcinoma. Consider pelvic MRI with and without contrast. Irregular appearance of the cervix without discrete mass. Consider pelvic MRI with and without contrast. Electronically Signed: Robert Edmond MD at 18:49 EDT ,
--- OUTSIDE RECORDS SUMMARY | 2024-07-16 16:48 | XMS RPT_ITS | CCD ---
Author Organization [facility] Care Team Providers Care Unit Control Clerk Name Role Phone Noelle Bowden Unavailable Fortino Irwin Unavailable [phone] Ger Porras Unavailable [facility], [facility] Unavailable Carmen Haque Unavailable Unavailable Nani Calvin Unavailable Unavailable Unavailable Unavailable Renee Barba Unavailable Unavailable Ophelia Mayo Unavailable Unavailable NAOMIE MARTINI MD Primary Care Physician [phone] Unavailable Primary Care Provider UnavailNaomie De La Rosa MD Primary Care Provider [phone] PRINCESS FLEMING Attending Unavailable FRANCISCA RIVERA Attending Unavailable JUDD SANDOVAL Referring Unavailable JUDD SANDOVAL Attending Unavailable NAOMIE MARTINI Primary Care Unavailable FRANCISCA RIVERA Attending Unavailable NAOMIE MRATINI Primary Care Unavailable FRANCISCA RIVERA Referring Unavailable FÉLIX ROMAN MD Attending Unavailable NAOMIE MARTINI MD Primary Care UnavailFRANCISCA Delarosa MD Attending Unavailable NAOMIE MARTINI MD Primary Care Unavailab weber Allergies Allergy Classification Reported Allergen(s) Allergy Type Date of Onset Reaction(s) Facility (4 sources) levoFLOXacin; Translations: [Levaquin *FLUOROQUINOLON ES*] Drug Allergy Shortness of breath [facility] Work Phone: Medications Current Medications Medication Drug Class(es) Dates Sig (Normalized) Sig (Original) acetaminophen 325 mg / HYDROcodone bitartrate 5 mg oral tablet (5 sources) Opioid Agonist Start: 02-28-2024 End: 03-02-2024 take 1 tablet by mouth every six hours as needed for pain [place] 325- 5 mg oral tablet Dose = 1 tab(s), Oral, q6h, PRN for pain, X 3 day(s), # 12 tab(s), 0 Refill(s), Sciatica of left side, 59.1 Start Date: 02/28/24 Stop Date: 03/02/24 Status: Ordered Start: 07-18-2015 End: 06-05-2018 take 1 tablet by mouth twice daily as needed Hydrocodone-Acetaminophen 5-325 MG Oral Tablet 1 (one) Tablet Tablet bid prn for 0 days Quantity: 60 {Tablet} Refills: 0 Ordered: 05-Jun-2018 Renee Barba CMA Start : 18-Jul-2015 End : 05-Jun-2018 Inactive Comments: sixty Comment on above: sixty aspirin 81 mg chewable tablet (16 sources) Platelet Aggregation Inhibitor, Nonsteroidal Anti-inflammatory Drug Start: 01-01-2021 aspirin 81 mg oral tablet, chewable Dose : 81 mg = 1 tab(s), Oral, Daily, # 30 tab(s), 0 Refill(s) Start Date: 01/01/21 Status: Ordered Start: 06-05-2018 End: 05-31-2019 take 1 tablet by mouth once daily Aspirin Adult Low Dose 81 MG Oral Tablet Delayed Release 1 (one) Tablet DR qd for 360 days Quantity: 30 {Tablet} Refills: 0 Ordered: 05-Jun-2018 Noelle Bowden DO, DO, Kathleen Start : 05-Jun-2018 End : 31-May-2019 Inactive aspirin 81 mg ca p Take by mouth. Active atorvastatin 40 mg oral tablet (1 source) HMG-CoA Reductase Inhibitor Start: 01-01-2021 atorvastatin 40 mg oral tablet Dose : 40 mg = 1 tab(s), Oral, qDay, # 30 tab(s), 0 Refill(s) Start Date: 01/01/21 Status: Ordered cholecalciferol, vitamin D3, (VITAMIN D3 ORAL) (7 sources) cholecalciferol, vitamin D3, (VITAMIN D3 ORAL) Take by mouth once daily. Active cholecalciferol, vitamin D3, (VITAMIN D3 ORAL) Take by mouth once daily. 0 Active cyanocobalamin, vitamin B-12 , (VITAMIN B-12 ORAL) (7 sources) cyanocobalamin, vitamin B-12, (VITAMIN B-12 ORAL) Take by mouth once daily. Active cyanocobalamin, vitamin B-12, (VITAMIN B-12 ORAL) Take by mouth once daily. 0 Active escitalopram 5 mg oral tablet (1 source) Serotonin Reuptake Inhibitor Start: 01-01-2021 escitalopram 5 mg oral tablet Dose : 5 mg = 1 tab(s), Oral, qDay, # 30 tab(s), 0 Refill(s) Start Date: 01/01/21 Status: Ordered hydroCHLOROthiazide 25 mg oral tablet (11 sources) Thiazide Diuretic Start: 01-01-2021 hydroCHLOROthiazide 25 mg tablet 02/28/2024 Active methylPREDNISolone 4 mg oral tablet (1 source) Corticosteroid Start: 02-28-2024 End: 03-05-2024 Medrol 4 mg oral tablet 6-5-4-3-2-1 tab(s), Oral, Daily, 24mg day 1, 20mg day 2, 16mg day 3, 12 mg day 4, 8mg day 5, 4mg day 6, X 6 day(s), # 21 tab(s), 0 Refill(s), 03/05/24 10:58:00 PM EDT Start Date: 02/28/24 Stop Date: 03/05/24 Status: Ordered Completed/Discontinued Medications Medication Drug Class(es) Dates Sig (Normalized) Sig (Original) acyclovir 800 mg oral tablet (4 sources) Herpesvirus Nucleoside Analog DNA Polymerase Inhibitor, Herpes Simplex Virus Nucleoside Analog DNA Polymerase Inhibitor, Herpes Zoster Virus Nucleoside Analog DNA Polymerase Inhibitor Start: 12-28-2015 End: 01-04-2016 take 1 tablet by mouth five times daily ACYCLOVIR, 800MG (Oral Tablet) 1 (one) Tablet 5 times daily for 7 days Quantity: 35 {QS} Refills: 0 Ordered: 28-Dec-2015 Mei Umanzor CNP Start : 28-Dec-2015 End : 04-Jan-2016 Inactive 200 actuat albuterol 0.09 mg/actuat metered dose inhaler (4 sources) beta2-Adrenergic Agonist Start: 12-28-2015 End: 06-05-2018 take 2 puff(s) by inhalation three times daily ProAir HFA 108 (90 Base) MCG/ACT Inhalation Aerosol Solution 2 (two) Puff Puff tid for 0 days Quantity: 1 {Inhaler} Refills: 0 Ordered: 05-Jun-2018 Renee Barba CMA Start : 28-Dec-2015 End : 05-Jun-2018 Inactive amoxicillin 875 mg / clavulanate 125 mg oral tablet (8 sources) Penicillin-class Antibacterial Start: 10-29-2016 End: 11-08-2016 take 1 tablet by mouth twice daily at mealtime Augmentin 875-125 MG Oral Tablet 1 (one) Tablet BID for 10 days Quantity: 20 {Tablet} Refills: 0 Ordered: 29-Oct-2016 Carmen Mccloud Start : 29-Oct-2016 End : 08-Nov-2016 Inactive Comments: Take with Food Start: 02-09-2016 End: 02-19-2016 take 1 tablet by mouth twice daily AUGMENTIN, 875-125MG (Oral Tablet) 1 Tablet bid for 10 days Quantity: 20 {Tablet} Refills: 0 Ordered: 09-Feb-2016 Noelle Bowden DO, DO, Kathleen Start : 09-Feb-2016 End : 19-Feb-2016 Inactive Comment on above: Take with Food benzonatate 100 mg oral capsule (4 sources) Non-narcotic Antitussive Start: 12-28-19 End: 02-09-20 16 take 1 capsule by mouth three times daily as needed for cough TESSALON PERLES, 100MG (Oral Capsule) 1 (one) Capsule tid prn for cough for 0 days Quantity: 30 {Capsule} Refills: 0 Ordered: 09-Feb-2016 Carmen Haque RN Start : 28-Dec-2015 End : 09-Feb-2016 Inactive augmented betamethasone 0.5 mg/ml topical cream (4 sources) Corticosteroid Start: 10-27-19 21 Diprolene AF 0.05 % External Cream apply sparingly to rash Cream bid for 0 days Quantity: 15 {Gram} Refills: 0 Ordered: 27-Oct-2020 Noelle Bowden DO, DO, Kathleen Start : 27-Oct-2020 Active Start: 12-30-2013 End: 07-01-2015 DIPROLENE AF, 0.05% (Externa l Cream) apply sparingly to rash Cream Cream bid for 0 days Quantity: 15 {Gram} Refills: 0 Ordered: 01-Jul-2015 Long BLOCK SAW OPERATORDede Start : 30-Dec-2013 End : 01-Jul-2015 Inactive 24 hr buPROPion hydrochloride 150 mg extended release oral tablet (4 sources) Aminoketone Start: 02-09-2016 End: 06-18-2016 take 1 tablet by mouth once daily, then take 2 tablets by mouth Wellbutrin XL 150 MG Oral Tablet Extended Release 24 Hour 1 (one) Tablet ER 24HR qd for 7days then increase to 2-daily for 0 days Quantity: 60 {Tablet} Refills: 0 Ordered: 18-Jun-2016 Carmen Haque RN Start : 09-Feb-2016 End : 18-Jun-2016 Inactive ciprofloxacin 500 mg oral tablet (4 sources) Quinolone Antimicrobial Start: 05-02-2011 End: 05-24-2011 take 1 tablet by mouth twice daily CIPRO, 500MG (Oral Tablet) 1 Tablet bid for 0 days Quantity: 20 {Tablet} Refills: 0 Ordered: 24-May-2011 Carmen Haque RN Start : 02-May-2011 End : 24-May-2011 Inactive citalopram 20 mg oral tablet (4 sources) Serotonin Reuptake Inhibitor Start: 08-07-2011 End: 06-05-2012 CELEXA, 20MG (Oral Tablet) 1 Tablet take 1/2 daily x 1 wk then increase to one daily for 0 days Quantity: 30 {Tablet} Refills: 3 Ordered: 05-Jun-2012 Carmen Haque RN Start : 07-Aug-2011 End : 05-Jun-2012 Inactive clotrimazole 100 mg vaginal tablet (4 sources) Azole Antifungal Start: 04-19-2011 End: 04-26-2011 CLOTRIMAZOLE, 100MG (Vaginal Tablet) 1 Tablet daily qhs for 7 days Quantity: 7 {Tablet} Refills: 0 Ordered: 19-Apr-2011 Noé CALIMei Start : 19-Apr-2011 End : 26-Apr-2011 Inactive cyclobenzaprine hydrochloride 10 mg oral tablet (4 sources) Muscle Relaxant Start: 11-24-2007 End: 12-17-2007 take 1 tablet by mouth twice daily as needed FLEXERIL, 10MG (Oral Tablet) 1 (one) Tablet Twice daily prn for 0 days Quantity: 10 {Tablet} Refills: 0 Ordered: 24-Nov-2007 Noelle Bowden DO, DO, Kathleen Start : 24-Nov-2007 End : 17-Dec-2007 Inactive diazePAM 5 mg oral tablet (4 sources) Benzodiazepine Start: 07-24-2012 End: 08-22-2012 take 1 tablet by mouth twice daily VALIUM, 5MG (Oral Tablet) 1 Tablet bid for 0 days Quantity: 10 {Tablet} Refills: 0 Ordered: 22-Aug-2012 Carmen Haque RN Start : 24-Jul-2012 End : 22-Aug-2012 Inactive Comments: ten Comment on above: ten EpiCeram External Emulsion (1 source) Start: 10-27-2020 EpiCeram External Emulsion 1 (one) Milliliter apply sparingly over rash for 0 days Quantity: 2 {Box} Refills: 0 Ordered: 27-Oct-2020 Noelle Bowden DO, DO, Kathleen Start : 27-Oct-2020 Active fluconazole 150 mg oral tablet (4 sources) Azole Antifungal Start: 04-26-2011 End: 05-02-2011 take 1 tablet by mouth once DIFLUCAN, 150MG (Oral Tablet) 1 Tablet today for 0 days Quantity: 1 {Tablet} Refills: 0 Ordered: 02-May-2011 Carmen Haque RN Start : 26-Apr-2011 End : 02-May-2011 Inactive Comments: one time dose Comment on above: one time dose gabapentin 300 mg oral capsule (4 sources) Anti-epileptic Agent Start: 12-28-2015 End: 02-09-2016 take 1 capsule by mouth once daily at bedtime as needed GABAPENTIN, 300MG (Oral Capsule) 1 (one) Capsule qhs prn for post herpetic neuralgia for 0 days Quantity: 30 {Capsule} Refills: 0 Ordered: 09-Feb-2016 Carmen Haque RN Start : 28-Dec-2015 End : 09-Feb-2016 Inactive inulin 200 mg / lactobacillus rhamnosus gg [id number] unt oral capsule (4 sources) Start: 04-19-2011 End: 06-25-2012 take 1 capsule by mouth twice daily CULTURELLE [employer] (Oral Capsule) 1 Capsule twice daily for 0 days Quantity: 30 Refills: 0 Ordered: 25-Jun-2012 Carmen Haque RN Start : 19-Apr-2011 End : 25-Jun-2012 Inactive Start: 04-19-2011 End: 06-25-2012 take 1 capsule by mouth twice daily C[employer]URE[employer] (Oral Capsule) 1 Capsule twice daily for 0 days Quantity: 30 Refills: 0 Ordered: 25-Jun-2012 Carmen Haque LPN Start : 19-Apr-2011 End : 25-Jun-2012 Inactive levoFLOXacin 500 mg oral tablet (4 sources) Quinolone Antimicrobial Start: 08-22-2012 End: 09-01-2012 take 1 tablet by mouth once daily LEVAQUIN, 500MG (Oral Tablet) 1 Tablet qd for 0 days Quantity: 10 {Tablet} Refills: 0 Ordered: 01-Sep-2012 Dede Young RN Start : 22-Aug-2012 End : 01-Sep-2012 Inactive LORazepam 0.5 mg oral tablet (4 sources) Benzodiazepine Start: 06-13-2018 take 1 tablet by mouth once daily as needed Ativan 0.5 MG Oral Tablet 1 (one) Tablet daily, as needed for 0 days Quantity: 20 {Tablet} Refills: 0 Ordered: 13-Jun-2018 Noelle Bowden DO, DO, Kathleen Start : 13-Jun-2018 Active Comments: Medication taken as needed. [id number] Comment on above: Medication taken as needed. [id number] metaxalone 800 mg oral tablet (4 sources) Start: 06-25-2012 End: 08-22-2012 take 1 tablet by mouth three times daily as needed METAXALONE, 800MG (Oral Tablet) 1 Tablet tid prn for 0 days Quantity: 30 {Tablet} Refills: 0 Ordered: 22-Aug-2012 Carmen Haque RN Start : 25-Jun-2012 End : 22-Aug-2012 Inactive mometasone furoate 0.05 mg/actuat metered dose nasal spray (4 sources) Corticosteroid Start: 10-03-2009 NASONEX, 50MCG/ACT (Nasal Suspension) 2 (two) Suspension qd for 0 days Quantity: 1 {Suspension} Refills: 1 Ordered: 16-Nov-2009 Carmen Haque RN Start : 03-Oct-2009 Inactive naproxen 500 mg oral tablet (8 sources) Nonsteroidal Anti-inflammatory Drug Start: 06-25-2012 End: 08-22-2012 take 1 tablet by mouth twice daily NAPROXEN, 500MG (Oral Tablet) 1 (one) Tablet Twice daily for 0 days Quantity: 30 {Tablet} Refills: 0 Ordered: 22-Aug-2012 Carmen Haque RN Start : 25-Jun-2012 End : 22-Aug-2012 Inactive Start: 03-17-2007 End: 11-24-2007 take 1 tablet by mouth twice daily NAPROXEN SODIUM, 550MG (Oral Tablet) 1 (one) Tablet BID for 0 days Quantity: 30 {Tablet} Refills: 0 Ordered: 17-Mar-2007 Noelle Bowden DO, DO, Kathleen Start : 17-Mar-2007 End : 24-Nov-2007 Inactive nitrofurantoin, macrocrystals 25 mg / nitrofurantoin, monohydrate 75 mg oral capsule (4 sources) Nitrofuran Antibacterial Start: 06-19-2017 End: 06-05-2018 take 1 capsule by mouth twice daily Macrobid 100 MG Oral Capsule 1 (one) Capsule bid for 0 days Quantity: 20 {Capsule} Refills: 0 Ordered: 05-Jun-2018 Gravius IRASEMA Renee Start : 19-Jun-2017 End : 05-Jun-2018 Inactive olopatadine 1 mg/ml ophthalmic solution (4 sources) Histamine-1 Receptor Inhibitor Start: 10-03-2009 PATANOL, 0.1% (Ophthalmic Solution) 1 (one) gtt Solution bid each eye for 0 days Quantity: 5 {Milliliter} Refills: 1 Ordered: 16-Nov-2009 Carmen Haque RN Start : 03-Oct-2009 Inactive predniSONE 20 mg oral tablet (4 sources) Start: 07-24-2012 End: 07-29-2012 take 1 tablet by mouth twice daily PREDNISONE, 20MG (Oral Tablet) 1 Tablet bid wiht food for 5 days Quantity: 10 {Tablet} Refills: 0 Ordered: 22-Aug-2012 Noelle Bowden DO, DO, Kathleen Start : 24-Jul-2012 End : 29-Jul-2012 Inactive Problems Active Problems Problem Classification Problem Date Documented Da te Episodic/Chronic Allergic reactions (8 sources) Dermatitis; Translations: [Eczema] 06-08-2019 Episodic Anxiety disorders (20 sources) Anxiety; Translations: [Anxiety] 06-08-2019 Chronic Diabetes mellitus without complication (8 sources) Impaired fasting glycaemia; Translations: [Hyperglycemia] 06-08-2019 Episodic Disorders of lipid metabolism (2 sources) Hypercholesterolemia ; Translations: [Hypercholesteremia (Renamed from Hypercholesterolemia )] 07-29-2019 Chronic Fracture of lower limb (15 sources) Closed fracture of shaft of fibula; Translations: [Other fracture of shaft of left fibula, initial encounter for closed fracture] Onset: 03-07-2024 03-07-2024 Episodic Genitourinary symptoms and ill-defined conditions (20 sources) Urinary frequency; Translations: [Dysuria] Resolved: 05-24-2011 06-08-2019 Episodic Headache; including migraine (8 sources) Headache; Translations: [Chronic nonintractable headache, unspecified headache type] 06-08-2019 Episodic Comment on above: think sinus headache is better Headache; including migraine (4 sources) Headache; including migraine Mood disorders (4 sources) Reactive depression (situational); Translations: [Situational depression] 06-08-2019 Chronic Comment on above: brother passed Mycoses (20 sources) Candidiasis of urogenital site; Translations: [Candidiasis of other urogenital sites] Resolved: 05-24-2011 08-22-2012 Episodic Nonspecific chest pain (20 sources) Chest pain; Translations: [Atypical chest pain] Resolved: 02-09-2016 06-08-2019 Episodic Comment on above: etiology? unsure cv work up neg , cat scan neg had a bout after caf feine she will take ppi over the counter and see if helps- like nexium or omprazole Occlusion or stenosis of precerebral arteries (1 source) Occlusion and stenosis of bilateral carotid arteries; Translations: [Bilateral carotid artery stenosis] 10-27-2020 Chronic Other bone disease and musculoskeletal deformities (8 sources) Osteopenia; Translations: [Osteopenia] 06-08-2019 Episodic Other circulatory disease (4 sources) Abnormal chest sounds; Translations: [Abnormal lung sounds] 06-08-2019 Episodic Other connective tissue disease (2 sources) Pain in left lower limb; Translations: [Pain in left leg] 03-07-2024 Episodic Other connective tissue disease (1 source) Pain in left leg; Translations: [Left leg pain] Onset: 03-07-2024 Episodic Other female genital disorders (10 sources) Postcoital bleeding; Translations: [Postcoital bleeding] Onset: 08-28-2011 08-28-2011 Chronic Other lower respiratory disease (4 sources) Fibrosis of lung; 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] 06-08-2019 Chronic Other lower respiratory disease (8 sources) Dyspnea Episodic Other nervous system disorders (8 sources) Carpal tunnel syndrome; Translations: [Carpal tunnel syndrome] 06-08-2019 Chronic Other nervous system disorders (1 source) Unspecified abnormalities of gait and mobility; Translations: [Gait difficulty] Onset: 03-07-2024 Episodic Other non-traumatic joint disorders (8 sources) Pain in elbow Resolved: 02-07-2009 08-22-2012 Episodic Other nutritional; endocrine; and metabolic disorders (8 sources) Hypocalcemia; Translations: [Hypocalcemia] 06-08-2019 Chronic Other skin disorders (1 source) Eruption; Translations: [Rash] 10-27-2020 Episodic Other skin disorders (1 source) Inflammatory dermatosis; Translations: [Dermatitis] 10-27-2020 Episodic Other upper respiratory disease (8 sources) Allergic rhinitis; Translations: [Allergic rhinitis] 06-08-2019 Chronic Other upper respiratory disease (16 sources) Congestion of nasal sinus; Translations: [Sinus congestion] 06-08-2019 Episodic Other upper respiratory infections (4 sources) Bacterial sinusitis; Translations: [Sinusitis, bacterial] 06-08-2019 Chronic Other upper respiratory infections (12 sources) Acute maxillary sinusitis; Translations: [Acute sinusitis] 06-08-2019 Episodic Residual codes; unclassified (4 sources) FH: Diabetes mellitus; Translations: [Family history of diabetes mellitus] 06-08-2019 Episodic Comment on above: HYPERGLYCEMIA ON LAB WELL 107 Residual codes; unclassified (4 sources) Family history of diabetes mellitus Episodic Residual codes; unclassified (4 sources) Postmenopausal state; Translations: [Postmenopausal (Renamed from Postmenopausal status)] 06-08-2019 Episodic Comment on above: had 2018 Spondylosis; intervertebral disc disorders; other back problems (16 sources) Cervical radiculopathy; Translations: [Cervical radiculopathy] 06-08-2019 Chronic Spondylosis; intervertebral disc disorders; other back problems (20 sources) Low back pain; Translations: [Neck pain] Onset: 08-07-2011 Resolved: 08-22-2012 06-08-2019 Episodic Comment on above: still on going issue --did therapy , nsaid rx , and x-rays reviewed Substance-related disorders (9 sources) Smoker; Translations: [Current smoker] 06-08-2019 Chronic Unclassified (20 sources) Unclassified (8 sources) LOW BACK PAIN WITH RADICULOPATHY (724.4) Unclassified (8 sources) Cervical Spasm (728.85) Unclassified (4 sources) CONJUNCTIVITIS, CHRONIC ALLERGIC NEC (372.14) Unclassified (20 sources) Current smoker Unclassified (12 sources) Bilateral carotid artery stenosis Unclassified (4 sources) Chest pain, atypical Unclassified (4 sources) Apical lung scarring Past or Other Problems Problem Classification Problem Date Documented Date Episodic/Chronic Abdominal pain (20 sources) Unspecified symptom associated with female genital organs; Translations: [Pain in pelvis] Onset: 1 06-08-2019 Episodic Inflammation; infection of eye (except that caused by tuberculosis or sexually transmitteddisease) (4 sources) Other chronic allergic conjunctivitis; Translations: [CONJUNCTIVITIS, CHRONIC ALLERGIC NEC] Resolved: 2 08-22-2012 Chronic Mood disorders (4 sources) Mood disorders Occlusion or stenosis of precerebral arteries (3 sources) Bilateral carotid artery stenosis; Translations: [Bilateral carotid artery stenosis] 06-08-2019 Other connective tissue disease (4 sources) Spasm of cervical paraspinous muscle; Translations: [Spasm of cervical paraspinous muscle] Resolved: 9 08-12-2015 Episodic Other connective tissue disease (4 sources) Pain in limb; Translations: [Limb pain] Resolved: 9 08-09-2015 Episodic Comment on above: question nerve impin gment - neck, shoulder, elbow or carpal tunnel.- obvious carpal tunnel symptoms- consider EMG/Nerve conduction if persists. Other female genital disorders (10 sources) Mass of uterine adnexa; Translations: [Other specified conditions associated with female genital organs and menstrual cycle] Onset: 1 09-04-2011 Episodic Other female genital disorders (10 sources) Hypertrophy of ovary; Translations: [Other noninflammatory disorders of ovary, fallopian tube and broad ligament] Onset: 1 09-04-2011 Episodic Other female genital disorders (10 sources) Enlarged uterus; Translations: [Hypertrophy of uterus] Onset: 1 Resolved: 1 09-04-2011 Episodic Other lower respiratory disease (4 sources) Dyspnea on exertion; Translations: [SOB (shortness of breath) on exertion] Resolved: 2 08-05-2015 Episodic Other upper respiratory disease (4 sources) Bronchospasm; Translations: [Post-infection bronchospasm] Resolved: 6 06-17-2017 Episodic Unclassified (20 sources) Body mass index (BMI) 21.0-21.9, adult; Translations: [Body mass index 20-24 - normal] 06-08-2019 Unclassified (20 sources) Patient encounter status; Translations: [Annual physical exam] 10-18-2015 Comment on above: no pap bc 2015 pap n eg hpv -- due 2020 Unclassified (4 sources) SCREENING FOR HUMAN PAPILLOMAVIRUS (HPV) (V73.81) Unclassified (4 sources) Well Women (Non Medicare) Unclassified (16 sources) Screening status; Translations: [Encounter for screening for malignant neoplasm of colon (Renamed from Special screening for malignant neoplasms, colon)] 06-08-2019 Unclassified (4 sources) Elevated fasting glucose Unclassified (12 sources) SINUSITIS, ACUTE NOS (461.9) Unclassified (8 sources) Low back pain potentially associated with radiculopathy Unclassified (8 sources) EXAMINATION, ROUTINE MEDICAL (V70.0) Unclassified (12 sources) Encounter for gynecological examination without abnormal finding Unclassified (20 sources) Encounter for screening mammogram for breast cancer (Renamed from Encounter for screening mammogram for malignant neoplasm of breast) Unclassified (16 sources) Postmenopausal (Renamed from Postmenopausal status) Unclassified (4 sources) Limb pain (729.5) Unclassified (4 sources) Encounter for hepatitis C virus screening test for high risk patient Unclassified (4 sources) Encounter for annual general medical examination with abnormal findings in adult Unclassified (4 sources) Abnormal lung sounds Unclassified (4 sources) Sinusitis, bacterial Unclassified (4 sources) Screening for HPV (human papillomavirus) Unclassified (4 sources) Sinusitis, acute Unclassified (4 sources) Shingles Unclassified (4 sources) Post-infection bronchospasm Unclassified (5 sources) Body mass index 20-24 - normal; Translations: [BMI 21.0-21.9, adult] 07-29-2019 Unclassified (2 sources) Hypercholesteremia (Renamed from Hypercholesterolemia) Unclassified (1 source) Rash Unclassified (1 source) Eczema, unspecified type Viral infection (4 sources) Herpes zoster; Translations: [Shingles] Resolved: 6 06-17-2017 Episodic Results Test Name Value Interpretation Reference Range Facility No Panel Informationon 04-23 IMPRESSION: Healing proximal fibular shaft fracture with unchanged alignment and some early marginal callus formation. Ankle mortise is preserved. No new acute bony abnormality is identified in the lower leg or ankle. Transcribed Using Voice Recognition Transcribe Date/Time: Apr 23 2024 10:34A Dictated by: XIN VASQUEZ MD This examination was interpreted and the report reviewed and electronically signed by: XIN VASQUEZ MD on Apr 23 2024 10:35AM [facility] No Panel InformationOrdered By: [facility] Provider on 04-23-2024 [facility] XR Ankle - left AP and Later al and obliqueon 04-23-2024 * * *Final Report* * * DATE OF EXAM: Apr 22 2024 12:19PM [id number] - XR ANKLE 3V AP/LAT/OBL LT / PROCEDURE REASON: multiple diagnoses * * * * Physician Interpretation * * * * RESULT: EXAMINATION / TECHNIQUE: XR ANKLE 3V AP/LAT/OBL LT, XR TIBIA FIBULA 2V AP/LAT LT HISTORY: pt states fu lt lower leg Closed fracture of shaft of left fibula with routine healing, unspecified fracture morphology, subsequent encounter Other closed fracture of shaft of left fibula, initial encounter COMPARISON: 03/11/2024. 03/07/2024. RESULT: See impression [facility] Provider, [facility] - 04/23/2024 * * *Final Report* * * DATE OF EXAM: Apr 22 2024 12:19PM [id number] - XR ANKLE 3V AP/LAT/OBL LT / PROCEDURE REASON: multiple diagnoses * * * * Physician Interpretation * * * * RESULT: EXAMINATION / TECHNIQUE: XR ANKLE 3V AP/LAT/OBL LT, XR TIBIA FIBULA 2V AP/LAT LT HISTORY: pt states fu lt lower leg Closed fracture of shaft of left fibula with routine healing, unspecified fracture morphology,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 Position: Sitting; Cuff Location : Left Arm; Cuff Size: Standard 10-27-2020 08:29-0500 BSA (Body Surface Area) 1.64 m2 Noelle [facility] Work Phone: 10-27-2020 08:29-0500 Height 162.56 cm Noelle [facility]den [facility]; [facility] Work Phone: 10-27-2020 08:29-0500 Pulse (Heart Rate) 82 /min Noelle [facility]; [facility] Work Phone: Comment on above: Pattern: Regular 10-27-2020 08:29-0500 Pulse Oximetry 97 % Noelle Bowden [facility]; [facility] Work Phone: Comment on above: Room air 10-27-2020 08:29-0500 Respiratory Rate 16 /min Noelle [facility]den [facility] Work Phone: Comment on above: Pattern: Unlabored 07-29-2019 12:07-0500 BMI (Body Mass Index) 21.86 kg/m2 Noelle Bowden [facility] Work Phone: 07-29-2019 12:07-0500 Body Temperature 97.2 [degF] Noelle Bowden [facility] Work Phone: Comment on above: Method: Temporal 07-29-2019 12:07-0500 Body weight 57.78 kg Noelle Bowden [facility] Work Phone: 07-29-2019 12:07-0500 BP Diastolic 68 mm[Hg] Noelle Bowden [facility] Work Phone: Comment on above: Patient Position: Sitting; Cuff Location : Left Arm; Cuff Size: Standard 07-29-2019 12:07-0500 BP Systolic 98 mm[Hg] Noelle Bowden [facility] Work Phone: Comment on above: Patient Position: Sitting; Cuff Location : Left Arm; Cuff Size: Standard 07-29-2019 12:07-0500 BSA (Body Surface Area) 1.61 m2 Noelle Bowden [facility] Work Phone: 07-29-2019 12:07-0500 Height 162.56 cm Noelle Bowden [facility] Work Phone: 07-29-2019 12:07-0500 Pulse (Heart Rate) 82 /min Noelle Bowden [facility] Work Phone: Comment on above: Pattern: Regular 07-29-2019 12:07-0500 Pulse Oximetry 98 % Noelle Bowden [facility] Work Phone: Comment on above: Room air 07-29-2019 12:07-0500 Respiratory Rate 16 /min Noelle Bowden [facility] Work Phone: Comment on above: Pattern: Unlabored 06-08-2019 11:21-0400 BMI (Body Mass Index) 21.35 kg/m2 Noelle Bowden [facility] Work Phone: 06-08-2019 11:21-0400 Body Temperature 98.2 [degF] Noelle Bowden [facility] Work Phone: Comment on above: Method: Temporal 06-08-2019 11:21-0400 Body weight 56.42 kg Noelle Bowden [facility] Work Phone: 06-08-2019 11:21-0400 BP Diastolic 72 mm[Hg] Noelle Bowden [facility] Work Phone: Comment on above: Patient Position: Sitting; Cuff Location : Left Arm; Cuff Size: Standard 06-08-2019 11:21-0400 BP Systolic 124 mm[Hg] Noelle Bowden [facility] Work Phone: Comment on above: Patient Position: Sitting; Cuff Location : Left Arm; Cuff Size: Standard 06-08-2019 11:21-0400 BSA (Body Surface Area) 1.6 m2 Noelle Bowden [facility] Work Phone: 06-08-2019 11:21-0400 Height 162.56 cm Noelle Bowden [facility] Work Phone: 06-08-2019 11:21-0400 Pulse (Heart Rate) 86 /min Noelle Bowden [facility] Work Phone: Comment on above: Pattern: Regular 06-08-2019 11:21-0400 Pulse Oximetry 97 % Noelle Bowden [facility] Work Phone: Comment on above: Room air 06-08-2019 11:21-0400 Respiratory Rate 16 /min Noelle Bowden [facility] Work Phone: Comment on above: Pattern: Unlabored 08-12-2018 12:21-0500 BMI (Body Mass Index) 21.48 kg/m2 Noelle Bowden [facility] Work Phone: 08-12-2018 12:21-0500 Body weight 56.76 kg Noelle Bowden [facility] Work Phone: 08-12-2018 12:21-0500 BP Diastolic 68 mm[Hg] Noelle Bowden [facility] Work Phone: Comment on above: Patient Position: Sitting; Cuff Location : Left Arm; Cuff Size: Standard 08-12-2018 12:21-0500 BP Systolic 110 mm[Hg] Noelle Bowden [facility] Work Phone: Comment on above: Patient Position: Sitting; Cuff Location : Left Arm; Cuff Size: Standard 08-12-2018 12:21-0500 BSA (Body Surface Area) 1.6 m2 Noelle Bowden [facility] Work Phone: 08-12-2018 12:21-0500 Height 162.56 cm Noelle Bowden [facility] Work Phone: 08-12-2018 12:21-0500 Pulse (Heart Rate) 81 /min Noelle Bowden [facility] Work Phone: Comment on above: Pattern: Regular 08-12-2018 12:21-0500 Pulse Oximetry 97 % Noelle Bowden [facility] Work Phone: Comment on above: Room air 08-12-2018 12:21-0500 Respiratory Rate 18 /min Noelle Bowden [facility] Work Phone: Comment on above: Pattern: Unlabored 06-13-2018 09:23-0400 BMI (Body Mass Index) 21.37 kg/m2 Noelle Bowden [facility] Work Phone: 06-13-2018 09:23-0400 Body Temperature 98.8 [degF] Noelle Bowden [facility] Work Phone: Comment on above: Method: Temporal 06-13-2018 09:23-0400 Body weight 56.47 kg Noelle Bowden [facility] Work Phone: 06-13-2018 09:23-0400 BP Diastolic 82 mm[Hg] Noelle Bowden [facility] Work Phone: Comment on above: Patient Position: Sitting; Cuff Location : Left Arm; Cuff Size: Standard 06-13-2018 09:23-0400 BP Systolic 134 mm[Hg] Noelle Bowden [facility] Work Phone: Comment on above: Patient Position: Sitting; Cuff Location : Left Arm; Cuff Size: Standard 06-13-2018 09:23-0400 BSA (Body Surface Area) 1.6 m2 Noelle Bowden [facility] Work Phone: 06-13-2018 09:23-0400 Height 162.56 cm Noelle Bowden [facility] Work Phone: 06-13-2018 09:23-0400 Pulse (Heart Rate) 79 /min Noelle Bowden [facility] Work Phone: Comment on above: Pattern: Regular 06-13-2018 09:23-0400 Pulse Oximetry 99 % Noelle Bowden [facility] Work Phone: Comment on above: Room air 06-13-2018 09:23-0400 Respiratory Rate 16 /min Noelle Bowden [facility] Work Phone: Comment on above: Pattern: Unlabored 06-05-2018 10:18-0400 BMI (Body Mass Index) 20.77 kg/m2 Noelle Bowden [facility] Work Phone: 06-05-2018 10:18-0400 Body Temperature 98.5 [degF] Noelle Bowden [facility] Work Phone: Comment on above: Method: Temporal 06-05-2018 10:180400 Body weight 54.89 kg Noelle Bowden [facility] Work Phone: 06-05-2018 10:18-0400 BP Diastolic 78 mm[Hg] Noelle Bowden [facility] Work Phone: Comment on above: Patient Position: Sitting; Cuff Location : Left Arm; Cuff Size: Standard 06-05-2018 10:18-0400 BP Systolic 116 mm[Hg] Noelle Bowden [facility] Work Phone: Comment on above: Patient Position: Sitting; Cuff Location : Left Arm; Cuff Size: Standard 06-05-2018 10:18-0400 BSA (Body Surface Area) 1.58 m2 Noelle Bowden [facility] Work Phone: 06-05-2018 10:18-0400 Height 162.56 cm Noelle Bowden [facility] Work Phone: 06-05-2018 10:18-0400 Pulse (Heart Rate) 79 /min Noelle Bowden [facility] Work Phone: Comment on above: Pattern: Regular 06-05-2018 10:18-0400 Pulse Oximetry 98 % Noelle Bowden [facility] Work Phone: Comment on above: Room air 06-05-2018 10:18-0400 Respiratory Rate 16 /min Noelle Bowden [facility] Work Phone: Comment on above: Pattern: Unlabored 06-17-2017 11:27-0400 BMI (Body Mass Index) 20.86 kg/m2 Noelle Bowden [facility] Work Phone: 06-17-2017 11:27-0400 Body weight 55.11 kg Noelle Bowden [facility] Work Phone: 06-17-2017 11:27-0400 BP Diastolic 80 mm[Hg] Noelle Bowden [facility] Work Phone: Comment on above: Patient Position: Sitting; Cuff Location : Left Arm; Cuff Size: Standard 06-17-2017 11:27-0400 BP Systolic 120 mm[Hg] Noelle Bowden [facility] Work Phone: Comment on above: Patient Position: Sitting; Cuff Location : Left Arm; Cuff Size: Standard 06-17-2017 11:27-0400 BSA (Body Surface Area) 1.58 m2 Noelle Bowden [facility] Work Phone: 06-17-2017 11:27-0400 Height 162.56 cm Noelle Bowden [facility] Work Phone: 06-17-2017 11:27-0400 Pulse (Heart Rate) 70 /min Noelle Bowden [facility] Work Phone: Comment on above: Pattern: Regular 06-17-2017 11:27-0400 Pulse Oximetry 98 % Noelle Bowden [facility] Work Phone: Comment on above: Room air 06-17-2017 11:27-0400 Respiratory Rate 18 /min Noelle Bowden [facility] Work Phone: Comment on above: Pattern: Unlabored 01-17-2017 13:33-0400 BMI (Body Mass Index) 20.98 kg/m2 Noelle [facility] Work Phone: 01-17-2017 13:33-0400 Body weight 55.45 kg Noelle Bowden [facility] Work Phone: 01-17-2017 13:33-0400 BP Diastolic 76 mm[Hg] Noelle Bowden [facility] Work Phone: Comment on above: Patient Position: Sitting; Cuff Location : Left Arm; Cuff Size: Standard 01-17-2017 13:33-0400 BP Systolic 118 mm[Hg] Noelle Bowden [facility] Work Phone: Comment on above: Patient Position: Sitting; Cuff Location : Left Arm; Cuff Size: Standard 01-17-2017 13:33-0400 BSA (Body Surface Area) 1.59 m2 Noelle Bowden [facility] Work Phone: 01-17-2017 13:33-0400 Height 162.56 cm Noelle Bowden [facility] Work Phone: 01-17-2017 13:33-0400 Pulse (Heart Rate) 98 /min Noelle Bowden [facility] Work Phone: Comment on above: Pattern: Regular 01-17-2017 13:33-0400 Pulse Oximetry 98 % Noelle Bowden [facility] Work Phone: Comment on above: Room air 01-17-2017 13:33-0400 Respiratory Rate 18 /min Noelle Bowden [facility] Work Phone: Comment on above: Pattern: Unlabored 10-29-2016 09:15-0500 BMI (Body Mass Index) 21.11 kg/m2 Noelle Wil[facility] Work Phone: 10-29-2016 09:15-0500 Body Temperature 98.4 [degF] Noelle Bowden [facility] Work Phone: Comment on above: Method: Temporal 10-29-2016 09:15-0500 Body weight 55.79 kg Noelle Bowden [facility] Work Phone: 10-29-2016 09:15-0500 BP Diastolic 82 mm[Hg] Noelle Bowden [facility] Work Phone: Comment on above: Patient Position: Sitting; Cuff Location : Left Arm; Cuff Size: Standard 10-29-2016 09:15-0500 BP Systolic 116 mm[Hg] Noelle Bowden [facility] Work Phone: Comment on above: Patient Position: Sitting; Cuff Location : Left Arm; Cuff Size: Standard 10-29-2016 09:15-0500 BSA (Body Surface Area) 1.59 m2 Noelle Bowden [facility] Work Phone: 10-29-2016 09:15-0500 Height 162.56 cm Noelle Bowden [facility] Work Phone: 10-29-2016 09:15-0500 Pulse (Heart Rate) 96 /min Noelle Bowden [facility] Work Phone: Comment on above: Pattern: Regular 10-29-2016 09:15-0500 Pulse Oximetry 98 % Noelle Bowden [facility] Work Phone: Comment on above: Room air 10-29-2016 09:15-0500 Respiratory Rate 16 /min Noelle Bowden [facility] Work Phone: Comment on above: Pattern: Unlabored 06-18-2016 11:12-0400 BMI (Body Mass Index) 20.81 kg/m2 Noelle Bowden [facility] Work Phone: 06-18-2016 11:12-0400 Body weight 55 kg Noelle Bowden [facility] Work Phone: 06-18-2016 11:12-0400 BP Diastolic 78 mm[Hg] Noelle Bowden [facility] Work Phone: Comment on above: Patient Position: Sitting; Cuff Location : Left Arm; Cuff Size: Standard 06-18-2016 11:12-0400 BP Systolic 118 mm[Hg] Noelle Bowden [facility] Work Phone: Comment on above: Patient Position: Sitting; Cuff Location : Left Arm; Cuff Size: Standard 06-18-2016 11:12-0400 BSA (Body Surface Area) 1.58 m2 Noelle Bowden [facility] Work Phone: 06-18-2016 11:12-0400 Height 162.56 cm Noelle Bowden [facility] Work Phone: 06-18-2016 11:12-0400 Pulse (Heart Rate) 84 /min Noelle Bowden [facility] Work Phone: Comment on above: Pattern: Regular 06-18-2016 11:12-0400 Pulse Oximetry 99 % Noelle Bowden [facility] Work Phone: Comment on above: Room air 06-18-2016 11:12-0400 Respiratory Rate 18 /min Noelle Bowden [facility] Work Phone: Comment on above: Pattern: Unlabored 02-09-2016 09:37-0400 BMI (Body Mass Index) 20.47 kg/m2 Noelle Bowden [facility] Work Phone: 02-09-2016 09:37-0400 Body weight 54.09 kg Noelle Bowden [facility] Work Phone: 02-09-2016 09:37-0400 BP Diastolic 80 mm[Hg] Noelle Bowden [facility] Work Phone: Comment on above: Patient Position: Sitting; Cuff Location : Left Arm; Cuff Size: Standard 02-09-2016 09:37-0400 BP Systolic 120 mm[Hg] Noelle Bowden [facility] Work Phone: Comment on above: Patient Position: Sitting; Cuff Location : Left Arm; Cuff Size: Standard 02-09-2016 09:37-0400 BSA (Body Surface Area) 1.57 m2 Noelle Bowden [facility] Work Phone: 02-09-2016 09:37-0400 Height 162.56 cm Noelle Bowden [facility] Work Phone: 02-09-2016 09:37-0400 Pulse (Heart Rate) 68 /min Noelle Bowden [facility] Work Phone: Comment on above: Pattern: Regular 02-09-2016 09:37-0400 Pulse Oximetry 98 % Noelle Bowden [facility] Work Phone: Comment on above: Room air 02-09-2016 09:37-0400 Respiratory Rate 18 /min Noelle Bowden [facility] Work Phone: Comment on above: Pattern: Unlabored 12-28-2015 09:13-0400 BMI (Body Mass Index) 20.94 kg/m2 Noelle Bowden [facility] Work Phone: 12-28-2015 09:13-0400 Body Temperature 97.4 [degF] Noelle Bowden [facility] Work Phone: 12-28-2015 09:13-0400 Body weight 55.34 kg Noelle Bowden [facility] Work Phone: 12-28-2015 09:13-0400 BP Diastolic 80 mm[Hg] Noelle Bowden [facility] Work Phone: Comment on above: Patient Position: Sitting; Cuff Location : Left Arm; Cuff Size: Standard 12-28-2015 09:13-0400 BP Systolic 116 mm[Hg] Noelle Bowden [facility] Work Phone: Comment on above: Patient Position: Sitting; Cuff Location : Left Arm; Cuff Size: Standard 12-28-2015 09:13-0400 BSA (Body Surface Area) 1.59 m2 Noelle Bowden [facility] Work Phone: 12-28-2015 09:13-0400 Height 162.56 cm Noelle Bowden [facility] Work Phone: 12-28-2015 09:13-0400 Pulse (Heart Rate) 82 /min Noelle Bowden [facility] Work Phone: Comment on above: Pattern: Regular 12-28-2015 09:13-0400 Pulse Oximetry 99 % Noelle Bowden [facility] Work Phone: Comment on above: Room air 12-28-2015 09:13-0400 Respiratory Rate 14 /min Noelle Bowden [facility] Work Phone: Comment on above: Pattern: Unlabored 10-03-2015 15:49-0500 BMI (Body Mass Index) 20.94 kg/m2 Noelle Bowden [facility] Work Phone: 10-03-2015 15:49-0500 Body Temperature 98.9 [degF] Noelle Bowden [facility] Work Phone: Comment on above: Method: Temporal 10-03-2015 15:49-0500 Body weight 55.34 kg Noelle Bowden [facility] Work Phone: 10-03-2015 15:49-0500 BP Diastolic 66 mm[Hg] Noelle Bowden [facility] Work Phone: Comment on above: Patient Position: Sitting; Cuff Location : Left Arm; Cuff Size: Standard 10-03-2015 15:49-0500 BP Systolic 104 mm[Hg] Noelle Bowden [facility] Work Phone: Comment on above: Patient Position: Sitting; Cuff Location : Left Arm; Cuff Size: Standard 10-03-2015 15:49-0500 BSA (Body Surface Area) 1.59 m2 Noelle Bowedn [facility] Work Phone: 10-03-2015 15:49-0500 Height 162.56 cm Noelle Bowden [facility] Work Phone: 10-03-2015 15:49-0500 Pulse (Heart Rate) 76 /min Noelle Bowden [facility] Work Phone: Comment on above: Pattern: Regular 10-03-2015 15:49-0500 Pulse Oximetry 96 % Noelle Bowden [facility] Work Phone: Comment on above: Room air 10-03-2015 15:49-0500 Respiratory Rate 16 /min Noelle Bowden [facility] Work Phone: Comment on above: Pattern: Unlabored 08-29-2015 10:06-0500 BMI (Body Mass Index) 20.77 kg/m2 Noelle [facility] Work Phone: 08-29-2015 10:06-0500 Body Temperature 98.9 [degF] Noelle Bowden [facility] Work Phone: Comment on above: Method: Temporal 08-29-2015 10:06-0500 Body weight 54.89 kg Noelle Bowden [facility] Work Phone: 08-29-2015 10:06-0500 BP Diastolic 64 mm[Hg] Noelle Bowden [facility] Work Phone: Comment on above: Patient Position: Sitting; Cuff Location : Left Arm; Cuff Size: Standard 08-29-2015 10:06-0500 BP Systolic 102 mm[Hg] Noelle Bowden [facility] Work Phone: Comment on above: Patient Position: Sitting; Cuff Location : Left Arm; Cuff Size: Standard 08-29-2015 10:06-0500 BSA (Body Surface Area) 1.58 m2 Noelle Bowden [facility] Work Phone: 08-29-2015 10:06-0500 Height 162.56 cm Noelle Bowden [facility] Work Phone: 08-29-2015 10:06-0500 Pulse (Heart Rate) 85 /min Noelle Bowden [facility] Work Phone: Comment on above: Pattern: Regular 08-29-2015 10:06-0500 Pulse Oximetry 98 % Noelle Bowden [facility] Work Phone: Comment on above: Room air 08-29-2015 10:06-0500 Respiratory Rate 16 /min Noelle Bowden [facility] Work Phone: Comment on above: Pattern: Unlabored 07-18-2015 09:59-0400 BMI (Body Mass Index) 20.94 kg/m2 Noelle [facility] Work Phone: 07-18-2015 09:59-0400 Body Temperature 98.3 [degF] Noelle Bowden [facility] Work Phone: Comment on above: Method: Temporal 07-18-2015 09:59-0400 Body weight 55.34 kg Noelle Bowden [facility] Work Phone: 07-18-2015 09:59-0400 BP Diastolic 92 mm[Hg] Noelle Bowden [facility] Work Phone: Comment on above: Patient Position: Sitting; Cuff Location : Left Arm; Cuff Size: Standard 07-18-2015 09:59-0400 BP Systolic 140 mm[Hg] Noelle Bowden [facility] Work Phone: Comment on above: Patient Position: Sitting; Cuff Location : Left Arm; Cuff Size: Standard 07-18-2015 09:59-0400 BSA (Body Surface Area) 1.59 m2 Noelle Bowden [facility] Work Phone: 07-18-2015 09:59-0400 Height 162.56 cm Noelle Bowden [facility] Work Phone: 07-18-2015 09:59-0400 Pulse (Heart Rate) 92 /min Noelle Bowden [facility] Work Phone: Comment on above: Pattern: Regular 07-18-2015 09:59-0400 Pulse Oximetry 98 % Noelle Bowden [facility] Work Phone: Comment on above: Room air 07-18-2015 09:59-0400 Respiratory Rate 16 /min Noelle Bowden [facility] Work Phone: Comment on above: Pattern: Unlabored 07-01-2015 11:13-0400 BMI (Body Mass Index) 20.8 kg/m2 Noelle Wilkes [facility] Internal Medicine Work Phone: 07-01-2015 11:13-0400 Body Temperature 98.7 [degF] Noelle Bowden [facility] Internal Medicine Work Phone: Comment on above: Method: Temporal 07-01-2015 11:130400 Body weight 54.98 kg Noelle Bowden [facility] Internal Medicine Work Phone: 07-01-2015 11:13-0400 BP Diastolic 76 mm[Hg] Noelle Bowden [facility] Internal Medicine Work Phone: Comment on above: Patient Position: Sitting; Cuff Location : Left Arm; Cuff Size: Standard 07-01-2015 11:13-0400 BP Systolic 118 mm[Hg] Noelle Bowden [facility] Internal Medicine Work Phone: Comment on above: Patient Position: Sitting; Cuff Location : Left Arm; Cuff Size: Standard 07-01-2015 11:130400 BSA (Body Surface Area) 1.58 m2 Noelle Bowden [facility] Internal Medicine Work Phone: 07-01-2015 11:13-0400 Height 162.56 cm Noelle Bowden [facility] Internal Medicine Work Phone: 07-01-2015 11:13-0400 Pulse (Heart Rate) 71 /min Noelle Bowden [facility] Internal Medicine Work Phone: Comment on above: Pattern: Regular 07-01-2015 11:13-0400 Pulse Oximetry 98 % Noelle Bowden [facility] Internal Medicine Work Phone: Comment on above: Room air 07-01-2015 11:13-0400 Respiratory Rate 16 /min Noelle Bowden [facility] Internal Medicine Work Phone: Comment on above: Pattern: Unlabored 06-17-2015 09:24-0400 BMI (Body Mass Index) 20.94 kg/m2 Noelle Bowden [facility] Internal Medicine Work Phone: 06-17-2015 09:24-0400 Body Temperature 98.1 [degF] Noelle Bowden [facility] Internal Medicine Work Phone: Comment on above: Method: Temporal 06-17-2015 09:24-0400 Body weight 55.34 kg Noelle Bowden [facility] Internal Medicine Work Phone: 06-17-2015 09:24-0400 BP Diastolic 74 mm[Hg] Noelle Bowden [facility] Internal Medicine Work Phone: Comment on above: Patient Position: Sitting; Cuff Location : Left Arm; Cuff Size: Standard 06-17-2015 09:24-0400 BP Systolic 118 mm[Hg] Noelle Bowden [facility] Internal Medicine Work Phone: Comment on above: Patient Position: Sitting; Cuff Location : Left Arm; Cuff Size: Standard 06-17-2015 09:24-0400 BSA (Body Surface Area) 1.59 m2 Noelle Bowden [facility] Internal Medicine Work Phone: 06-17-2015 09:24-0400 Height 162.56 cm Noelle Bowden [facility] Internal Medicine Work Phone: 06-17-2015 09:24-0400 Pulse (Heart Rate) 64 /min Noelle Bowden [facility] Internal Medicine Work Phone: Comment on above: Pattern: Regular 06-17-2015 09:24-0400 Respiratory Rate 15 /min Noelle Bowden [facility] Internal Medicine Work Phone: Comment on above: Pattern: Unlabored 06-14-2014 13:11-0400 BMI (Body Mass Index) 21.63 kg/m2 Noelle Bowden [facility] Internal Medicine Work Phone: 06-14-2014 13:11-0400 Body Temperature 97 [degF] Noelle Bowden [facility] Internal Medicine Work Phone: Comment on above: Method: Temporal 06-14-2014 13:110400 Body weight 57.15 kg Noelle Bowden [facility] Internal Medicine Work Phone: 06-14-2014 13:11-0400 BP Diastolic 66 mm[Hg] Noelle Bowden [facility] Internal Medicine Work Phone: Comment on above: Patient Position: Sitting; Cuff Location : Left Arm; Cuff Size: Standard 06-14-2014 13:11-0400 BP Systolic 116 mm[Hg] Noelle Bowden [facility] Internal Medicine Work Phone: Comment on above: Patient Position: Sitting; Cuff Location : Left Arm; Cuff Size: Standard 06-14-2014 13:11-0400 BSA (Body Surface Area) 1.61 m2 Noelle Bowden [facility] Internal Medicine Work Phone: 06-14-2014 13: Height 162.56 cm Noelle Bowden [facility] Internal Medicine Work Phone: 06-14-2014 13:040 Pulse (Heart Rate) 94 /min Noelle Bowden [facility] Internal Medicine Work Phone: Comment on above: Pattern: Regular 06-14-2014 13:0400 Pulse Oximetry 99 % Noelle Bowden [facility] Internal Medicine Work Phone: Comment on above: Room air 06-14-2014 13:040 Respiratory Rate 17 /min Noelle Bowden [facility] Internal Medicine Work Phone: Comment on above: Pattern: Unlabored 12-30-2013 14:-0400 BMI (Body Mass Index) 21.14 kg/m2 Noelle Bowden [facility] Internal Medicine Work Phone: 12-30-2013 14:25-0400 Body Temperature 97 [degF] Noelle Bowden [facility] Internal Medicine Work Phone: Comment on above: Method: Oral 12-30-2013 14:25-0400 Body weight 55.88 kg Noelle Bowden [facility] Internal Medicine Work Phone: 12-30-2013 14:25-0400 BP Diastolic 64 mm[Hg] Noelle Bowden [facility] Internal Medicine Work Phone: Comment on above: Patient Position: Sitting; Cuff Location : Left Arm; Cuff Size: Standard 12-30-2013 14:25-0400 BP Systolic 102 mm[Hg] Noelle Bowden [facility] Internal Medicine Work Phone: Comment on above: Patient Position: Sitting; Cuff Location : Left Arm; Cuff Size: Standard 12-30-2013 14:25-0400 BSA (Body Surface Area) 1.59 m2 Noelle Bowden [facility] Internal Medicine Work Phone: 12-30-2013 14:25-0400 Height 162.56 cm Noelle Bowden [facility] Internal Medicine Work Phone: 12-30-2013 14:25-0400 Pulse (Heart Rate) 68 /min Noelle Bowden [facility] Internal Medicine Work Phone: Comment on above: Pattern: Regular 12-30-2013 14:25-0400 Pulse Oximetry 97 % Noelle Bowden [facility] Internal Medicine Work Phone: Comment on above: Room air 12-30-2013 14:25-0400 Respiratory Rate 18 /min Noelle Bowden [facility] Internal Medicine Work Phone: Comment on above: Pattern: Unlabored 06-15-2013 11:23-0400 BMI (Body Mass Index) 21.2 kg/m2 Noelle Bowden [facility] Internal Medicine Work Phone: 06-15-2013 11:23-0400 Body Temperature 98.9 [degF] Noelle Bowden [facility] Internal Medicine Work Phone: Comment on above: Method: Oral 06-15-2013 11:23-0400 Body weight 56.02 kg Noelle Bowden [facility] Internal Medicine Work Phone: 06-15-2013 11:23-0400 BP Diastolic 68 mm[Hg] Noelle Bowden [facility] Internal Medicine Work Phone: Comment on above: Patient Position: Sitting; Cuff Location : Left Arm; Cuff Size: Standard 06-15-2013 11:23-0400 BP Systolic 118 mm[Hg] Noelle Bowden [facility] Internal Medicine Work Phone: Comment on above: Patient Position: Sitting; Cuff Location : Left Arm; Cuff Size: Standard 06-15-2013 11:23-0400 BSA (Body Surface Area) 1.59 m2 Noelle Bowden [facility] Internal Medicine Work Phone: 06-15-2013 11:23-0400 Height 162.56 cm Noelle Bowden [facility] Internal Medicine Work Phone: 06-15-2013 11:23-0400 Pulse (Heart Rate) 79 /min Noelle Bowden [facility] Internal Medicine Work Phone: Comment on above: Pattern: Regular 06-15-2013 11:23-0400 Pulse Oximetry 94 % Noelle Bowden [facility] Internal Medicine Work Phone: Comment on above: Room air 06-15-2013 11:23-0400 Respiratory Rate 18 /min Noelle Bowden [facility] Internal Medicine Work Phone: Comment on above: Pattern: Unlabored 08-22-2012 08:19-0500 BMI (Body Mass Index) 21.71 kg/m2 Noelle Bowden [facility] Internal Medicine Work Phone: 08-22-2012 08:19-0500 Body Temperature 98.3 [degF] Noelle Bowden [facility] Internal Medicine Work Phone: Comment on above: Method: Oral 08-22-2012 08:19-0500 Body weight 57.38 kg Noelle Bowden [facility] Internal Medicine Work Phone: 08-22-2012 08:19-0500 BP Diastolic 80 mm[Hg] Noelle Bowden [facility] Internal Medicine Work Phone: Comment on above: Patient Position: Sitting; Cuff Location : Left Arm; Cuff Size: Large 08-22-2012 08:19-0500 BP Systolic 136 mm[Hg] Noelle Bowden [facility] Internal Medicine Work Phone: Comment on above: Patient Position: Sitting; Cuff Location : Left Arm; Cuff Size: Large 08-22-2012 08:19-0500 BSA (Body Surface Area) 1.61 m2 Noelle Bowden [facility] Internal Medicine Work Phone: 08-22-2012 08:19-0500 Height 162.56 cm Noelle Bowden [facility] Internal Medicine Work Phone: 08-22-2012 08:19-0500 Pulse (Heart Rate) 64 /min Noelle Bowden [facility] Internal Medicine Work Phone: Comment on above: Pattern: Regular 08-22-2012 08:19-0500 Respiratory Rate 16 /min Noelle Bowden [facility] Internal Medicine Work Phone: Comment on above: Pattern: Unlabored 07-24-2012 08:53-0400 BMI (Body Mass Index) 21.47 kg/m2 Noelle Wilkes [facility] Internal Medicine Work Phone: 07-24-2012 08:53-0400 Body Temperature 98.1 [degF] Noelle Bowden [facility] Internal Medicine Work Phone: Comment on above: Method: Oral 07-24-2012 08:53-0400 Body weight 56.73 kg Noelle Bowden [facility] Internal Medicine Work Phone: 07-24-2012 08:53-0400 BP Diastolic 62 mm[Hg] Noelle Bowden [facility] Internal Medicine Work Phone: Comment on above: Patient Position: Sitting; Cuff Location : Left Arm; Cuff Size: Standard 07-24-2012 08:53-0400 BP Systolic 124 mm[Hg] Noelle Bowden [facility] Internal Medicine Work Phone: Comment on above: Patient Position: Sitting; Cuff Location : Left Arm; Cuff Size: Standard 07-24-2012 08:53-0400 BSA (Body Surface Area) 1.6 m2 Noelle Bowden [facility] Internal Medicine Work Phone: 07-24-2012 08:53-0400 Height 162.56 cm Noelle Bowden [facility] Internal Medicine Work Phone: 07-24-2012 08:53-0400 Pulse (Heart Rate) 60 /min Noelle Bowden [facility] Internal Medicine Work Phone: Comment on above: Pattern: Regular 07-24-2012 08:53-0400 Respiratory Rate 16 /min Noelle Bowden [facility] Internal Medicine Work Phone: Comment on above: Pattern: Unlabored 06-25-2012 12:07-0400 BMI (Body Mass Index) 20.98 kg/m2 Noelle Wilkes [facility] Internal Medicine Work Phone: 06-25-2012 12:07-0400 Body Temperature 98.1 [degF] Noelle Bowden [facility] Internal Medicine Work Phone: Comment on above: Method: Oral 06-25-2012 12:07-0400 Body weight 55.45 kg Noelle Bowden [facility] Internal Medicine Work Phone: 06-25-2012 12:07-0400 BP Diastolic 70 mm[Hg] Noelle Bowden [facility] Internal Medicine Work Phone: Comment on above: Patient Position: Sitting; Cuff Location : Left Arm; Cuff Size: Standard 06-25-2012 12:07-0400 BP Systolic 122 mm[Hg] Noelle Bowden [facility] Internal Medicine Work Phone: Comment on above: Patient Position: Sitting; Cuff Location : Left Arm; Cuff Size: Standard 06-25-2012 12:07-0400 BSA (Body Surface Area) 1.59 m2 Noelle Bowden [facility] Internal Medicine Work Phone: 06-25-2012 12:07-0400 Height 162.56 cm Noelle Bowden [facility] Internal Medicine Work Phone: 06-25-2012 12:07-0400 Pulse (Heart Rate) 64 /min Noelle Bowden [facility] Internal Medicine Work Phone: Comment on above: Pattern: Regular 06-25-2012 12:07-0400 Respiratory Rate 20 /min Noelle Bowden [facility] Internal Medicine Work Phone: Comment on above: Pattern: Unlabored 06-05-2012 09:08-0400 BMI (Body Mass Index) 20.98 kg/m2 Noelle Bowden [facility] Internal Medicine Work Phone: 06-05-2012 09:08-0400 Body Temperature 98.7 [degF] Noelle Bowden [facility] Internal Medicine Work Phone: Comment on above: Method: Oral 06-05-2012 09:08-0400 Body weight 55.45 kg Noelle Bowden [facility] Internal Medicine Work Phone: 06-05-2012 09:08-0400 BP Diastolic 70 mm[Hg] Noelle Bowden [facility] Internal Medicine Work Phone: Comment on above: Patient Position: Sitting; Cuff Location : Left Arm; Cuff Size: Large 06-05-2012 09:08-0400 BP Systolic 102 mm[Hg] Noelle Bowden [facility] Internal Medicine Work Phone: Comment on above: Patient Position: Sitting; Cuff Location : Left Arm; Cuff Size: Large 06-05-2012 09:08-0400 BSA (Body Surface Area) 1.59 m2 Noelle Bowden [facility] Internal Medicine Work Phone: 06-05-2012 09:08-0400 Height 162.56 cm Noelle Bowden [facility] Internal Medicine Work Phone: 06-05-2012 09:08-0400 Pulse (Heart Rate) 64 /min Noelle Bowden [facility] Internal Medicine Work Phone: Comment on above: Pattern: Regular 06-05-2012 09:08-0400 Respiratory Rate 18 /min Noelle Bowden [facility] Internal Medicine Work Phone: Comment on above: Pattern: Unlabored 08-07-2011 10:28-0500 BMI (Body Mass Index) 19.96 kg/m2 Noelle Bowden [facility] Internal Medicine Work Phone: 08-07-2011 10:28-0500 Body Temperature 97.5 [degF] Noelle Bowden [facility] Internal Medicine Work Phone: Comment on above: Method: Oral 08-07-2011 10:28-0500 Body weight 52.76 kg Noelle Bowden [facility] Internal Medicine Work Phone: 08-07-2011 10:28-0500 BP Diastolic 76 mm[Hg] Noelle Bowden [facility] Internal Medicine Work Phone: Comment on above: Patient Position: Sitting; Cuff Location : Left Arm; Cuff Size: Standard 08-07-2011 10:28-0500 BP Systolic 118 mm[Hg] Noelle Bowden [facility] Internal Medicine Work Phone: Comment on above: Patient Position: Sitting; Cuff Location : Left Arm; Cuff Size: Standard 08-07-2011 10:28-0500 BSA (Body Surface Area) 1.55 m2 Noelle Bowden [facility] Internal Medicine Work Phone: 08-07-2011 10:28-0500 Height 162.56 cm [facility] Work [facility]: 08-07-2011 10:28-0500 Pulse (Heart Rate) 78 /min Noelle Bowden [facility] Internal Medicine Work Phone: Comment on above: Pattern: Regular 08-07-2011 10:28-0500 Pulse Oximetry 98 % Noelle Bowden [facility] Internal Medicine Work Phone: Comment on above: Room air 05-24-2011 09:43-0400 BMI (Body Mass Index) 19.96 kg/m2 Noelle [facility] Internal Medicine Work Phone: 05-24-2011 09:43-0400 Body weight 52.76 kg Noelle Bowden [facility] Internal Medicine Work Phone: 05-24-2011 09:43-0400 BP Diastolic 80 mm[Hg] Noelle Bowden [facility] Internal Medicine Work Phone: Comment on above: Patient Position: Sitting; Cuff Location : Left Arm; Cuff Size: Standard 05-24-2011 09:43-0400 BP Systolic 120 mm[Hg] Noelle Bowden [facility] Internal Medicine Work Phone: Comment on above: Patient Position: Sitting; Cuff Location : Left Arm; Cuff Size: Standard 05-24-2011 09:43-0400 BSA (Body Surface Area) 1.55 m2 Noelle Bowden [facility] Internal Medicine Work Phone: 05-24-2011 09:43-0400 Height 162.56 cm Noelle Bowden [facility] Internal Medicine Work Phone: 05-24-2011 09:43-0400 Pulse (Heart Rate) 68 /min Noelle Bowden [facility] Internal Medicine Work Phone: Comment on above: Pattern: Regular 05-24-2011 09:43-0400 Respiratory Rate 20 /min Noelle Bowden [facility] Internal Medicine Work Phone: Comment on above: Pattern: Unlabored 05-02-2011 10:59-0400 BMI (Body Mass Index) 20 kg/m2 [facility] Work Phone: 05-02-2011 10:59-0400 Body weight 52.84 kg Noelle Bowden [facility] Internal Medicine Work Phone: 05-02-2011 10:59-0400 BP Diastolic 68 mm[Hg] Noelle Bowden [facility] Internal Medicine Work Phone: Comment on above: Patient Position: Sitting; Cuff Location : Left Arm; Cuff Size: Standard 05-02-2011 10:59-0400 BP Systolic 110 mm[Hg] Noelle Bowden [facility] Internal Medicine Work Phone: Comment on above: Patient Position: Sitting; Cuff Location : Left Arm; Cuff Size: Standard 05-02-2011 10:59-0400 BSA (Body Surface Area) 1.55 m2 Noelle Bowden [facility] Internal Medicine Work Phone: 05-02-2011 10:59-0400 Height 162.56 cm Noelle Bowden [facility] Internal Medicine Work Phone: 05-02-2011 10:59-0400 Pulse (Heart Rate) 60 /min Noelle Bowden [facility] Internal Medicine Work Phone: Comment on above: Pattern: Regular 05-02-2011 10:59-0400 Respiratory Rate 18 /min Noelle Bowden [facility] Internal Medicine Work Phone: Comment on above: Pattern: Unlabored 04-19-2011 14:40-0400 BMI (Body Mass Index) 20.77 kg/m2 Noelle Bowden [facility] Internal Medicine Work Phone: 04-19-2011 14:40-0400 Body weight 54.89 kg Noelle Bowden [facility] Internal Medicine Work Phone: 04-19-2011 14:40-0400 BP Diastolic 70 mm[Hg] Noelle Bowden [facility] Internal Medicine Work Phone: Comment on above: Patient Position: Sitting; Cuff Location : Left Arm; Cuff Size: Standard 04-19-2011 14:40-0400 BP Systolic 122 mm[Hg] Noelle Bowden [facility] Internal Medicine Work Phone: Comment on above: Patient Position: Sitting; Cuff Location : Left Arm; Cuff Size: Standard 04-19-2011 14:40-0400 BSA (Body Surface Area) 1.58 m2 Noelle Bowden [facility] Internal Medicine Work Phone: 04-19-2011 14:40-0400 Height 162.56 cm Noelle Bowden [facility] Internal Medicine Work Phone: 04-19-2011 14:40-0400 Pulse (Heart Rate) 60 /min Noelle Bowden [facility] Internal Medicine Work Phone: Comment on above: Pattern: Regular 04-19-2011 14:40-0400 Respiratory Rate 18 /min Noelle Bowden [facility] Internal Medicine Work Phone: Comment on above: Pattern: Unlabored 11-16-2009 08:45-0500 BMI (Body Mass Index) 20.77 kg/m2 Noelle Bowden [facility] Internal Medicine Work Phone: 11-16-2009 08:45-0500 Body weight 54.89 kg Noelle Bowden [facility] Internal Medicine Work Phone: 11-16-2009 08:45-0500 BP Diastolic 80 mm[Hg] Noelle Bowden [facility] Internal Medicine Work Phone: Comment on above: Patient Position: Sitting; Cuff Location : Left Arm; Cuff Size: Large 11-16-2009 08:45-0500 BP Systolic 118 mm[Hg] Noelle Bowden [facility] Internal Medicine Work Phone: Comment on above: Patient Position: Sitting; Cuff Location : Left Arm; Cuff Size: Large 11-16-2009 08:45-0500 BSA (Body Surface Area) 1.58 m2 Noelle Bowden [facility] Internal Medicine Work Phone: 11-16-2009 08:45-0500 Height 162.56 cm Noelle Bowden [facility] Internal Medicine Work Phone: 11-16-2009 08:45-0500 Pulse (Heart Rate) 64 /min Noelle Bowden [facility] Internal Medicine Work Phone: Comment on above: Pattern: Regular 11-16-2009 08:45-0500 Respiratory Rate 20 /min Noelle Bowden [facility] Internal Medicine Work Phone: Comment on above: Pattern: Unlabored 10-17-2009 11:51-0500 BMI (Body Mass Index) 20.77 kg/m2 Noelle Bowden [facility] Internal Medicine Work Phone: 10-17-2009 11:51-0500 Body weight 54.89 kg Noelle Bowden [facility] Internal Medicine Work Phone: 10-17-2009 11:51-0500 BP Diastolic 76 mm[Hg] Noelle Bowden [facility] Internal Medicine Work Phone: Comment on above: Patient Position: Sitting; Cuff Location : Left Arm; Cuff Size: Large 10-17-2009 11:51-0500 BP Systolic 108 mm[Hg] Noelle Bowden [facility] Internal Medicine Work Phone: Comment on above: Patient Position: Sitting; Cuff Location : Left Arm; Cuff Size: Large 10-17-2009 11:51-0500 BSA (Body Surface Area) 1.58 m2 Noelle Bowden [facility] Internal Medicine Work Phone: 10-17-2009 11:51-0500 Height 162.56 cm Noelle Bowden [facility] Internal Medicine Work Phone: 10-17-2009 11:51-0500 Pulse (Heart Rate) 60 /min Noelle Bowden [facility] Internal Medicine Work Phone: Comment on above: Pattern: Regular 10-17-2009 11:51-0500 Pulse Oximetry 98 % Noelle Bowden [facility] Internal Medicine Work Phone: Comment on above: Room air 10-17-2009 11:51-0500 Respiratory Rate 18 /min Noelle Bowden [facility] Internal Medicine Work Phone: Comment on above: Pattern: Unlabored 10-03-2009 15:34-0500 Body Temperature 97.5 [degF] Noelle Bowden [facility] Internal Medicine Work Phone: 10-03-2009 15:34-0500 BP Diastolic 64 mm[Hg] Noelle Bowden [facility] Internal Medicine Work Phone: Comment on above: Patient Position: Sitting; Cuff Location : Left Arm; Cuff Size: Standard 10-03-2009 15:34-0500 BP Systolic 104 mm[Hg] Noelle Bowden [facility] Internal Medicine Work Phone: Comment on above: Patient Position: Sitting; Cuff Location : Left Arm; Cuff Size: Standard 10-03-2009 15:34-0500 Pulse (Heart Rate) 76 /min Noelle Bowden [facility] Internal Medicine Work Phone: Comment on above: Pattern: Regular 10-03-2009 15:34-0500 Respiratory Rate 16 /min Noelel Bowden [facility] Internal Medicine Work Phone: Comment on above: Pattern: Unlabored 12-17-2007 10:47-0400 BMI (Body Mass Index) 20.77 kg/m2 Noelle Bowden [facility] Internal Medicine Work Phone: 12-17-2007 10:47-0400 Body weight 54.89 kg Noelle Bowden [facility] Internal Medicine Work Phone: 12-17-2007 10:47-0400 BP Diastolic 80 mm[Hg] Noelle Bowden [facility] Internal Medicine Work Phone: Comment on above: Patient Position: Sitting; Cuff Location : Left Arm; Cuff Size: Standard 12-17-2007 10:47-0400 BP Systolic 128 mm[Hg] Noelle Bowden [facility] Internal Medicine Work Phone: Comment on above: Patient Position: Sitting; Cuff Location : Left Arm; Cuff Size: Standard 12-17-2007 10:47-0400 BSA (Body Surface Area) 1.58 m2 Noelle Bowden [facility] Internal Medicine Work Phone: 12-17-2007 10:47-0400 Head Circumference 0 cm Noelle Bowden [facility] Internal Medicine Work Phone: 12-17-2007 10:47-0400 Height 162.56 cm Noelle Bowden [facility] Internal Medicine Work Phone: 12-17-2007 10:47-0400 Pulse (Heart Rate) 80 /min Noelle Bowden [facility] Internal Medicine Work Phone: Comment on above: Pattern: Regular 12-17-2007 10:47-0400 Respiratory Rate 16 /min Noelle Bowden [facility] Internal Medicine Work Phone: Comment on above: Pattern: Unlabored 11-24-2007 11:47-0500 BMI (Body Mass Index) 20.96 kg/m2 [facility] Work Phone: 11-24-2007 11:47-0500 Body weight 55.4 kg Noelle Bowden [facility] Internal Medicine Work Phone: 11-24-2007 11:47-0500 BP Diastolic 76 mm[Hg] Noelle Bowden [facility] Internal Medicine Work Phone: Comment on above: Patient Position: Sitting; Cuff Location : Left Arm; Cuff Size: Standard 11-24-2007 11:47-0500 BP Systolic 112 mm[Hg] Noelle Bowden [facility] Internal Medicine Work Phone: Comment on above: Patient Position: Sitting; Cuff Location : Left Arm; Cuff Size: Standard 11-24-2007 11:47-0500 BSA (Body Surface Area) 1.59 m2 Noelle Bowden [facility] Internal Medicine Work Phone: 11-24-2007 11:47-0500 Head Circumference 0 cm Noelle Bowden [facility] Internal Medicine Work Phone: 11-24-2007 11:47-0500 Height 162.56 cm Noelle Bowden [facility] Internal Medicine Work Phone: 11-24-2007 11:47-0500 Pulse (Heart Rate) 80 /min Noelle Bowden [facility] Internal Medicine Work Phone: Comment on above: Pattern: Regular 11-24-2007 11:47-0500 Respiratory Rate 20 /min Noelle Bowden [facility] Internal Medicine Work Phone: Comment on above: Pattern: Unlabored 03-17-2007 09:53-0400 Body Temperature 97.8 [degF] Noelle Bowden [facility] Internal Medicine Work Phone: Comment on above: Method: Oral 03-17-2007 09:53-0400 Body weight 53.52 kg Noelle [facility] Medicine Work Phone: 03-17-2007 09:53-0400 BP Diastolic 78 mm[Hg] Noelle Bowden [facility] Internal Medicine Work Phone: Comment on above: Patient Position: Sitting; Cuff Location : Right Arm; Cuff Size: Standard 03-17-2007 09:53-0400 BP Systolic 120 mm[Hg] Noelle [facility]den [facility] Work Phone: Comment on above: Patient Position: Sitting; Cuff Location : Right Arm; Cuff Size: Standard 03-17-2007 09:53-0400 Head Circumference 0 cm Noelle [facility]den [facility] Work Phone: 03-17-2007 09:53-0400 Height 0 cm Noelle Bowden [facility] Work Phone: 03-17-2007 09:53-0400 Pulse (Heart Rate) 60 /min Noelle Bowden [facility] Work Phone: Comment on above: Pattern: Regular 03-17-2007 09:53-0400 Respiratory Rate 16 /min Noelle Bowden [facility] Work Phone: Comment on above: Pattern: Unlabored Encounters Encounter Date Encounter Type Care Provider Facility Start: 04-27-2024 ambulatory FRANCISCA RIVERA MD Facili ty:B Start: 04-22-2024 End: 04-22-2024 Orders Only Francisca Rivera MD Work Phone: Orthopedics Comment on above: Closed fracture of s haft of left fibula with routine healing, unspecified fracture morphology, subsequent encounter (Primary Dx); Other closed fracture of shaft of left fibula, initial encounter Closed fracture of s haft of left fibula with routine healing, unspecified fracture morphology, subsequent encounter (Primary Dx) Closed fracture of s haft of left fibula with routine healing, unspecified fracture morphology, subsequent encounter [S82.402D] Start: 03-31-2024 Telephone encounter Francisca ceballos MD Work Phone: Orthopedics Comment on above: Results - Mri Start: 03-25-2024 End: 03-25-2024 ambulatory JUDD SANDOVAL Facility:[facility] Start: 03-25-2024 End: 03-25-2024 Subsequent hospital visit by physician Judd Sandoval PA-C Work Phone: Radiology Comment on above: Other closed fractur e of shaft of left fibula, initial encounter [S82.492A] Start: 03-11-2024 End: 03-11-2024 Patient encounter procedure Francisca Rivera MD Work Phone: Orthopedics Comment on above: Other closed fractur e of shaft of left fibula, initial encounter Start: 03-11-2024 End: 03-11-2024 ambulatory FRANCISCA RIVERA Facility:[facility] Start: 03-11-2024 End: 03-11-2024 Subsequent hospital visit by physician Tricia Mcadams Mc [facility] Comment on above: Other closed fractur e of shaft of left fibula, initial encounter [S82.168A] Start: 03-09-2024 Orders Only Francisca cedillo MD Work Phone: Orthopedics Comment on above: Other closed fractur e of shaft of left fibula, initial encounter (Primary Dx) Start: 03-07-2024 End: 03-07-2024 Emergency department patient visit PRINCESS WILLIAM FLEMING Facility:[facility] Start: 03-07-2024 End: 03-07-2024 Subsequent hospital visit by physician Tricia [facility] Work Phone: Radiology Comment on above: Left leg pain [M79.6 05] Start: 03-07-2024 End: 03-07-2024 ambulatory PRINCESS FLEMING Facility:[facility] Start: 03-07-2024 End: 03-07-2024 Patient encounter procedure Hanna COFFAMN Work Phone: [facility] Comment on above: Left leg pain (Prima ry Dx); Other closed fracture of shaft of left fibula, initial encounter Start: 02-28-2024 End: 02-28-2024 Emergency department patient visit FÉLIX ROMAN MD [facility] Start: 10-27-2020 End: 10-27-2020 Office outpatient visit 10 minutes Noelle Kelsey [facility] Start: 07-29-2019 End: 07-29-2019 Office outpatient visit 15 minutes Noelle Bowden [facility] Start: 06-08-2019 End: 06-08-2019 Periodic preventive med est patient 40-64yrs Noelle Kelsey [facility] Start: 08-12-2018 End: 08-12-2018 Office outpatient visit 15 minutes Noelle Bowden [facility] Start: 06-13-2018 End: 06-13-2018 Office outpatient visit 15 minutes Noelle Bowden [facility] Start: 06-05-2018 End: 06-05-2018 Periodic preventive med est patient 65yrs& older Noelle Bowden [facility] Start: 06-19-2017 End: 06-19-2017 Phone Encounter Noelle Kelsey [facility] Start: 06-17-2017 End: 06-17-2017 Periodic preventive med est patient 40-64yrs Noelle Bowden [facility] Start: 01-17-2017 End: 01-17-2017 Office outpatient visit 15 minutes Noelle Bowden [facility] Start: 10-29-2016 End: 10-29-2016 Office outpatient visit 15 minutes Noelle Bowden [facility] Start: 06-18-2016 End: 06-18-2016 Periodic preventive med est patient 40-64yrs Nolele Bowden [facility] Start: 02-09-2016 End: 02-09-2016 Office outpatient visit 15 minutes Noelle Bowden [facility] Start: 12-28-2015 End: 12-28-2015 Office outpatient visit 15 minutes Noelle Bowden [facility] Start: 10-03-2015 End: 10-03-2015 Office outpatient visit 25 minutes Noelle Kelsey [facility] Start: 08-29-2015 End: 08-29-2015 Office outpatient visit 25 minutes Noelle Bowden [facility] Start: 07-18-2015 End: 07-18-2015 Office outpatient visit 25 minutes Noelle Bowden [facility] Start: 07-01-2015 End: 07-01-2015 Office outpatient visit 15 minutes Noelle Bowden [facility] Start: 06-17-2015 End: 06-17-2015 Periodic preventive med est patient 40-64yrs Noelle Bowden [facility] Start: 06-14-2014 End: 06-14-2014 Periodic preventive med est patient 40-64yrs Noelle Dennise [facility] Start: 12-30-2013 End: 12-30-2013 Patient encounter procedure Noelle Bowden [facility] Start: 06-15-2013 End: 06-15-2013 Patient encounter procedure Noelle Bowden [facility] Start: 09-01-2012 End: 09-01-2012 Phone Encounter Noelle Bowden [facility] Start: 09-01-2012 End: 09-01-2012 Phone Encounter Noelle Dennise [facility] Start: 08-22-2012 End: 08-22-2012 Patient encounter procedure Noelle Bowden [facility] Start: 07-24-2012 End: 07-24-2012 Patient encounter procedure Noelle Bowden [facility] Start: 06-25-2012 End: 06-25-2012 Patient encounter procedure Noelle Bowden [facility] Start: 06-05-2012 End: 06-05-2012 Patient encounter procedure Noelle Bowden [facility] Start: 08-07-2011 End: 08-07-2011 Office outpatient visit 25 minutes Noelle Bowden [facility] Start: 05-24-2011 End: 05-24-2011 Patient encounter procedure Noelle Bowden [facility] Start: 05-02-2011 End: 05-02-2011 Patient encounter procedure Noelle Bowden [facility] Start: 04-26-2011 End: 04-26-2011 Phone Encounter Noelle Bowden [facility] Start: 04-19-2011 End: 04-19-2011 Office outpatient visit 10 minutes Noelle Bowden [facility] Start: 11-16-2009 End: 11-16-2009 Patient encounter procedure Noelle Bowden [facility] Start: 10-17-2009 End: 10-17-2009 Office outpatient visit 25 minutes Noelle Bowden [facility] Start: 10-03-2009 End: 10-03-2009 Patient encounter procedure Noelle Bowden [facility] Start: 12-17-2007 End: 12-17-2007 Patient encounter procedure Noelle Bowden [facility] Start: 11-24-2007 End: 11-24-2007 Patient encounter procedure Noelle Bowden [facility] Start: 03-17-2007 End: 03-17-2007 Office outpatient visit 25 minutes Noelle [facility]den [facility] Procedures Date Procedure Procedure Detail Performing Clinician Start: 04-22-2024 Radex ankle complete minimum 3 views Francisca Rivera MD Work Phone: Start: 03-25-2024 Mri any jt lower extrem w/o contrast matrl Judd Sandoval PA-C Work Phone: Start: 03-11-2024 Radiologic examination ankle 2 views Judd COFFMAN-C Work Phone: Start: 03-07-2024 Radiologic examination tibia & fibula 2 views Hanna COFFMAN Work Phone: Start: 11-07-2020 End: 11-07-2020 Internal Medicine Office Visit Comments: See Note; NOTES: [facility] [address] [place] [address] [id number] OFFICE VISIT Date of Service: 11/07/20 MR#: [id number] Acct: [id number] Name: FELICITY VILLA V Rep #: [id number] : 1965 Provider: Dr. Naomie west MD Age/Sex: 55/F Location: [facility] Status: Signed Intake Vital Signs 11/07/20 Height 5 ft 3 in 11/07/20 Weight: 133 lb 11/07/20 BMI 23.6 11/07/20 BP 160/100 H 11/07/20 Blood Pressure Location Lt brachial 11/07/20 Position Sitting 11/07/20 Respiration 16 11/07/20 Pulse 90 11/07/20 Pulse Source Monitor 11/07/20 Temp 96.2 F L 11/07/20 Temp Source Temporal 11/07/20 Pulse Oximetry (%) 98 11/07/20 Oxygen Delivery Method room air Intake Visit Reasons: Est Care/Shingles Chief Complaint: Est. Care. Rash Allergies No Known Allergies Allergy (Unverified 07/11/18 10:53) Medications aspirin 81 mg tablet,delayed release 81 mg PO QDAY 09/28/17 [History Confirmed 11/07/20] lorazepam 1 mg tablet 0.5 mg PO DAILY PRN PRN 09/28/17 [History Confirmed 11/07/20] ascorbate calcium (vitamin C) 500 mg tablet 500 mg PO DAILY 11/07/20 [History Confirmed 11/07/20] betamethasone dipropionate 0.05 % topical ointment 1 applic TOPICAL BID 11/07/20 [History Confirmed 11/07/20] cholecalciferol (vitamin D3) 25 mcg (1,000 unit) capsule 25 mcg PO DAILY 11/07/20 [History Confirmed 11/07/20] cyanocobalamin (vitamin B-12) 500 mcg tablet 500 mcg PO DAILY 11/07/20 [History Confirmed 11/07/20] emollient combination no.32 1 applic TOPICAL BID PRN 11/07/20 [History Confirmed 11/07/20] lysine 500 mg tablet 500 mg PO DAILY 11/07/20 [History Confirmed 11/07/20] zinc 50 mg tablet 50 mg PO DAILY 11/07/20 [History Confirmed 11/07/20] PFSH Medical History (Updated 11/07/20 @ 10:[address] Naomie Martini MD) Anxiety (Chronic) Family History (Updated 11/07/20 @ 09:13 by Lisa Cobb) Mother Arthritis Myocardial infarction Heart disease Sister Breast cancer Cancer Father Cancer Diabetes Brother Cancer Social History (Updated 11/07/20 @ 09:13 by Lisa Cobb) Smoking Status: Current every day smoker alcohol intake: current alcohol intake frequency: a few times a month Alcohol type: wine substance use type: does not use HPI HPI Chief Complaint: Est. Care. Rash Details: FELICITY VILLA, is a 55 F who presents to the office today To establish care. Also has some concerns. She reports intermittent rash which has been ongoing since March of last year. Started out on her neck but has had rash noted on her flank, lower back and abdomen. Itchy. Denies any known precipitating factor. Symptom resolved spontaneously. Was seen recently by her prior PCP and started on a topical steroid with some improvement however low back with spine rash has persisted. Denies any significant new changes. She states that she started using Lysol spray but discontinued after the rash started and has noted no improvement. No other associated concerns. Blood pressure today elevated at 160/100 mmHg. Denies any known history of hypertension. She states that recently at her visit to her prior PCP, her BP was normal . Does not report chest pain, palpitations or shortness of breath. ROS Const Constitutional: No body ache, chills, excessive sweating, fatigue, fever(s), headache(s), snoring, weakness, weight change, sleep problems, change in appetite or other Eyes Eyes: No blurry vision, change in vision, eye pain, light sensitivity or other ENT ENT: No abnormal hearing, ear pain, tinnitus, nasal congestion, headache(s), neck pain, sore throat or other Resp Respiratory: No cough, shortness of breath, snoring, wheezing or other Cardio Cardiology: No chest pain at rest, chest pain with exertion, excessive sweating, shortness of breath, lightheadedness, orthopnea, palpitations or other Gastro GI: No abdominal pain, change in bowel habits, constipation, cramping, diarrhea, nausea/dyspepsia, vomiting or other Genitourinary-Female: No burning urination, painful urination, urinary incontinence, urinary frequency, urinary urgency, abnormal vaginal bleeding, pelvic pain or other Musc Musculoskeletal: No abnormal walking, joint pain, back pain, limited range of motion, neck pain, numbness, tingling or other Skin Skin: Positive for dry skin, redness, itching and rash Neuro Neurology: No abnormal walking, abnormal hearing, abnormal speech, dizziness, weakness, headache(s), memory loss, numbness, tingling or other Psych Psychiatric: No anxiety, No change in appetite, No depression, No memory loss, No Thoughts of harming yourself/Others, No other Endo Endocrine: No cold intolerance, excessive sweating, fatigue, flushing, heat intolerance, increased thirst/drinking, increased hunger or other Aller/Imm Allergy/Immunologic: Positive for itchy eyes; no wheezing Francisco Javier/Lymp Hematologic/Lymphatic: No easy bleeding, easy bruising, enlarged lymph nodes or other Exam Const General: cooperative, comfortable, no acute distress Orientation: alert, awake, oriented x3 HENMT Head: normal to inspection, normocephalic, atraumatic Ears: hearing grossly normal bilaterally Resp Effort Inspection: normal respiratory effort, able to speak in complete sentences Auscultation: Bilateral: Clear to Auscultation Cardio Rate: regular rate Rhythm: regular rhythm Heart Sounds: S1 normal, S2 normal GI Palpation: soft (Nontender, no palpable organomegaly.) Skin Rashes: rashes noted Neuro General: alert, awake, oriented x3, moves all extremities, CN's II-XI intact bilaterally Extrem General: no clubbing, cyanosis or edema Psych Appearance: grossly normal Mental Status: mental status grossly normal Mood: congruent mood Affect: normal affect Assessment Plan 1. Dermatitis L30.9 Plan Recurrent maculopapular rash distributed predominantly around the trunk. As above, no known precipitating factor. Some improvement on betamethasone but not total. Has only used this for couple days. Use of hypoallergenic cosmetics, detergent and clothing discussed. Continue betamethasone for now. Use 5 days in a week and rest for 2. Follow-up closely in 2 weeks. If no significant improvement, will refer to dermatology. Also advised to take Xyzal every afternoon for 2 weeks. 2. Elevated blood pressure reading without diagnosis of hypertension R03.0 Plan Blood pressure elevated during this visit at 160/1 100 mmHg. She denies any known history of hypertension and states that her readings are typically better. She states that she has a monitor at home, she was advised to check it closely. Follow-up at next visit. Call sooner with any concerns. This note was generated with [employer] dictation software. It may contain incorrect words, spelling, and punctuation that were not noted in checking the note before signing. Coding Level of Care Code Off vis,new,level 3 Diagnoses Dermatitis L30.9 Elevated blood pressure reading without diagnosis of hypertension R03.0 11/07/20 1347 <Electronically signed by Naomie Martini MD> Date Naomie Martini MD Cosigner Signature: Date (if applicable) CC: Noelle Bowden Start: 07-22-2018 End: 07-23-2018 Dexa Bone Density Study Comments: See Note; NOTES: [facility] Services [address] [place] [address] Dexa Bone Density Study MR#: [id number] Acct: [id number] Name: FELICITY VILLA V Rep #: [id number] : 1965 F 53 From: Terry Pérez MD PCP: Noelle Bowden DO Status: REG CLI Study: Dexa Bone Density Study Date of Exam: 07/22/18 Exam# [id number] Ordering Dr: Noelle Bowden DO STUDY: DUAL ENERGY X-RAY ABSORPTIOMETRY / DXA REASON FOR EXAM: Female, 53 years old. The patient is postmenopausal. No loss of height. TECHNIQUE: Bone Mineral Density (BMD) measurements of lumbar spine and bilateral hips were obtained. COMPARISON: None. FINDINGS: Lumbar Spine (L1-L4): g/cm2 (1.125) / T-score (-0.5) / Z-score (0.2) Findings are suggestive of normal bone density with a low fracture risk. Left Femur Total: g/cm2 (0.786) / T-score (-1.8) / Z-score (-1.2) Left Femoral Neck: g/cm2 (0.761) / T-score (-2.0) / Z-score (-1.1) Right Femur Total: g/cm2 (0.810) / T-score (-1.6) / Z-score (-1.0) Right Femoral Neck: g/cm2 (0.767) / T-score (-2.0) / Z-score (-1.0) BD/Dexa Bone Density Study IMPRESSION: The patient is considered osteopenic as outlined below according to World Patel Organization (WHO) criteria with a moderate fracture risk. Reference Information: The T-score is the number of standard deviations above or below the standard which is normal for young adults at their peak bone mineral density. The World Health Organization (WHO) interprets the T-scores as follows: Above -1 Normal bone density Between -1 and -2.5 Osteopenia Equal to / or below -2.5 Osteoporosis As a practical clinical guideline, osteopenia may be graded as follows: Mild -1 through -1.5 Moderate -1.6 through -2.0 Severe -2.1 through -2.4 The Z-score is the number of standard deviations above or below age-matched controls. A Z-score of less than -1.5 would be considered abnormal. References: 1. NIH Osteoporosis and Related Bone Diseases http://www.osteo.org 2. International Society for Clinical Densitometry http://www.iscd.org 3. National Osteoporosis Foundation http://www.nof.org Electronically Signed: Terry Pérez MD at 10:10 EDT Tel [phone], Service support , CC: Noelle Bowden DO Clinical Statistics Manager: Signed Noelle Bowden Work Phone: Start: 07-22-2018 End: 07-23-2018 SCREENING MAMM (CAD), BILAT Comments: See Note; NOTES: [facility] Imaging Services [address] [place], [place] [id number] SCREENING MAMM (CAD), BILAT MR#: [id number] Acct: [id number] Name: ALLENFELICITY V Rep #: [id number] : 1965 F 53 From: Terry Pérez MD PCP: Noelle Bowden DO Status: [facility] Study: SCREENING MAMM (CAD), BILAT Date of Exam: 07/22/18 Exam# [id number] Ordering Dr: Noelle Bowden DO MAMMOGRAPHY - BILATERAL SCREENING REASON FOR EXAM: Female, 53 years old. Routine annual screening examination. PERTINENT HISTORY: Sister with breast cancer. TECHNIQUE: Digital bilateral breast richard (3D mammographic acquisition) in the CC and MLO projections. 2-D mediolateral oblique (MLO) and craniocaudad (CC) views of both breasts were obtained. CAD: Full Field Digital Mammography with Computer Added Detection was performed. COMPARISON: Comparison is made with prior study dated October 12, 2016 and September 12, 2011. FINDINGS: Breast Composition: The breasts are heterogeneously dense, which may obscure small masses. There are no dominant masses or suspicious calcifications. No other significant abnormalities are identified. There has been no significant change since the prior study. BI/SCREENING MAMM (CAD), BILAT IMPRESSION: Stable bilateral screening mammogram. Yearly follow-up mammogram recommended. (A) ASSESSMENT CATEGORY: BIRADS Category 1: Negative. A letter regarding these results will be sent to the patient by the facility within 30 days. Approximately 10% of breast cancers are not detected by mammography. A normal mammogram should not delay biopsy of a clinically suspicious abnormality. [id number] Electronically Signed: Terry Pérez MD at 8:05 EDT Tel [phone], Service support , CC: Noelle Bowden DO Clinical Statistics Manager: Signed Noelle Bowden Work Phone: Start: 07-11-2018 End: 07-11-2018 Urgent Care Visit Report Comments: See Note; NOTES: [facility] [address] [place] [address] OFFICE VISIT Date of Service: 07/11/18 MR#: [id number] Acct: [id number] Name: FELICITY VILLA V Rep #: [id number] : 1965 Provider: Cruz Ch NP Age/Sex: 53/F Location[facility] Status: Signed Intake Vital Signs07/11/18 Blood Pressure 120/84 H 07/11/18 Blood Pressure Location Lt brachial 10/19/18 Blood Pressure Position Sitting Intake Visit Reasons: Urinary tract infection Chief Complaint: uti Allergies No Known Allergies Allergy (Unverified 07/11/18 10:53) Medications aspirin 81 mg tablet,delayed release 81 mg PO QDAY 09/28/17 [History Confirmed 07/11/18] lorazepam 1 mg tablet 0.5 mg PO DAILY PRN PRN 09/28/17 [History Confirmed 07/11/18] PFSH Social History Smoking Status: Current every day smoker alcohol intake: current alcohol intake frequency: a few times a month Alcohol type: wine HPI HPI Chief Complaint: uti Details: FELICITY VILLA, is a 53 F who presents to the office today for acute pain while urinating. She has a past medical history as listed above. She states that this began one day prior to visit and has not had a similar episode in the past year. She denies fever or chills. She admits to burning on urination and admits to self treatment of AZO without much alleviation of symptoms. She states that it is not getting worse. She denies any radiation of pain. She denies any fever, chills, chest pain or discomfort, abdominal pain or any other complication. ROS Const Constitutional: No fever(s), chills, weakness, change in appetite, sleep problems, fatigue, malaise or frequent falls Eyes Eyes: No blurry vision, change in vision, double vision or discharge ENT ENT: No abnormal hearing, ear pain, ear pressure or dizziness/vertigo Resp Respiratory: No cough, wheezing or shortness of breath Cardio Cardiology: No chest pain at rest, chest pain with exertion, shortness of breath, dyspnea on exertion, lightheadedness, irregular heart rhythm, fast heart rate, palpitations, orthopnea or generalized swelling Genitourinary-Female: Positive for burning urination, painful urination and difficulty urinating; no urinary incontinence, urinary frequency, urinary urgency or urinary hesitancy Musc Musculoskeletal: No joint pain, back pain, limited range of motion, joint swelling, muscle weakness, tingling or numbness Skin Skin: No change in skin color, wounds, rash or itching Neuro Neurology: No weakness, frequent falls, abnormal hearing, tingling, numbness, unsteady gait/balance, dizziness, loss of vision or memory loss Psych Psychiatric: No change in appetite, No memory loss, No anxiety, No depression, No Thoughts of harming yourself/Others Endo Endocrine: No fatigue, increased thirst/drinking, increased urination, increased hunger or heat intolerance Aller/Imm Allergy/Immunologic: No wheezing, itchy eyes or seasonal allergy symptoms Francisco Javier/Lymp Hematologic/Lymphatic: No easy bleeding, easy bruising or enlarged lymph nodes Exam Const General: cooperative, comfortable, no acute distress Nutritional Appearance: average body habitus, well nourished Orientation: alert, oriented x3 Limitations: mental status not altered [facility] Head: normal to inspection Ears: hearing grossly normal bilaterally Nose: external nose normal Eyes General: appearance normal, both eyes and all related structures Resp Effort AND Inspection: normal respiratory effort, able to speak in complete sentences, normal respiratory pattern, symmetric chest movement, no audible wheezes, no cough Auscultation: Bilateral: Clear to Auscultation Cardio Palpation: normal PMI Rate: regular rate Heart Sounds: S1 normal, S2 normal, normal S1 and S2, no click, no gallops, no murmurs, no rubs GI Inspection: normal to inspection Auscultation: normal bowel sounds Palpation: soft, no hepatosplenomegaly, no aortic enlargement, no guarding, no masses, not rigid, nontender General: No CVA tenderness Other: no suprapubic tenderness Musc Musculoskeletal: No muscle weakness Skin General: no rashes or lesions noted, elasticity normal, turgor normal Lesions: no lesions Rashes: no rashes Neuro General: alert, awake, oriented x3, CN's II-XI intact bilaterally Speech: speech normal Gait: normal gait Motor: muscle tone normal throughout Extrem General: normal to inspection, normal gait, no edema, no pedal edema Psych Appearance: grossly normal Mental Status: mental status grossly normal Affect: normal affect Attitude: cooperative Thought Process: normal Results [facility] Office Urine Color Yellow Last Edit by Ping De La Torre on 07/11/18 10:56 Office Urine Clarity Clear Last Edit by Ping De La Torre on 07/11/18 10:56 Assessment AND Plan Problems 1. Acute cystitis with hematuria N30.01 2. Dysuria R30.0 Plan Pts symptoms consistent with acute cystitis with hematuria. May continue AZO otc PRN. Will send out official UA and culture. Will treat empirically with bactrim twice daily x 5 days. Discussed redflag symptoms requiring urgent medical attention. Pt verbalized understanding. Orders Orders: Plan Detail Follow Up prn Coding Level of Care Code Off vis,new,level 3 Diagnoses Acute cystitis with hematuria N30.01 Dysuria R30.0 07/11/18 1307 <Electronically signed by Cruz BURLESON> Date Cruz BURLESON Cosigner Signature: Date (if applicable) CC: Noelle Bowden Start: 06-26-2018 End: 06-26-2018 Carotid Duplex Ultrasound Comments: See Note; NOTES: [facility] Cardiovascular Services [address] [place] [address] Carotid Duplex Ultrasound 06/20/18 1108 MR#: [id number] Acct: [id number] Name: FELICITY VILLA V Rep #: [id number] : 1965 53 From: Michael Lopez MD Attending Dr: Noelle Bowden DO Status: REG CLI Ordering Dr: Noelle Bowden DO Date: 06/20/18 Location: [facility] Sex: F C Admitted: Reason For Study: Stenosis Rt. Velocities/BP Lt. Velocities/BP Prox CCA 78.6/28.1 cm/sec. Prox CCA 85/23.5 cm/sec. Mid CCA 68.6/24 cm/sec. Mid CCA 76.2/22.3 cm/sec. Dist CCA 64.5/22.9 cm/sec. Dist CCA 73.3/25.2 cm/sec. Prox ICA 81.3/31 cm/sec. Prox ICA 59.7/26.3 cm/sec. Mid ICA 64.8/28.7 cm/sec. Mid ICA 85.6/41.6 cm/sec. Dist ICA 86.7/31 cm/sec. Dist ICA 99.1/50.4 cm/sec. Rt. ICA/CCA = 1.26. Lt. ICA/CCA = 1.30. Prox ECA 86.2/20.5 cm/sec. Prox ECA 87.9/17.6 cm/sec. Rt. Vert. 50.7/13.4 cm/sec. Lt. Vert. 55/17.3 cm/sec. Right Extracranial There is no significant atherosclerotic plaque noted in the right common carotid artery. There is intimal thickening but no significant atherosclerotic plaque noted in the right internal carotid artery. There is no significant atherosclerotic plaque noted in the right external carotid artery. Antegrade flow is noted in the right vertebral artery. Left Extracranial There is no significant atherosclerotic plaque noted in the left common carotid artery. There is no significant atherosclerotic plaque noted in the left internal carotid artery. There is no significant atherosclerotic plaque noted in the left external carotid artery. Antegrade flow is noted in the left vertebral artery. Procedure Carotid Duplex 22153. Exam performed in department. Interpretation Summary Mild (<50%) stenosis right extracranial internal carotid. Mild (<50%) stenosis left extracranial internal carotid. Flow within the vertebral arteries is antegrade bilaterally. Ordering Physician: Noelle Bowden Referring Physician: Noelle Bowden Performed By: China Nation RVT and Student 06/25/18 0753 Date Michael Lopez MD CC: Noelle Bowden DO Date Dictated: 06/20/18 1108 Date Transcribed: 06/25/18752 Clinical Statistics Manager: Signed Noelle Bowden Work Phone: Start: 06-25-2018 End: 06-25-2018 Carotid Duplex Ultrasound Comments: See Note; NOTES: [facility] Cardiovascular [place] [address] Carotid Duplex Ultrasound 06/20/18 1108 MR#: [id number] Acct: [id number] Name: FELICITY VILLA V Rep #: [id number] : 1965 53 From: Michael Lopez MD Attending Dr: Noelle Bowden DO Status: REG CLI Ordering Dr: Noelle Bowden DO Date: 06/20/18 Location: [facility] Sex: F C Admitted: Reason For Study: Stenosis Rt. Velocities/BP Lt. Velocities/BP Prox CCA 78.6/28.1 cm/sec. Prox CCA 85/23.5 cm/sec. Mid CCA 68.6/24 cm/sec. Mid CCA 76.2/22.3 cm/sec. Dist CCA 64.5/22.9 cm/sec. Dist CCA 73.3/25.2 cm/sec. Prox ICA 81.3/31 cm/sec. Prox ICA 59.7/26.3 cm/sec. Mid ICA 64.8/28.7 cm/sec. Mid ICA 85.6/41.6 cm/sec. Dist ICA 86.7/31 cm/sec. Dist ICA 99.1/50.4 cm/sec. Rt. ICA/CCA = 1.26. Lt. ICA/CCA = 1.30. Prox ECA 86.2/20.5 cm/sec. Prox ECA 87.9/17.6 cm/sec. Rt. Vert. 50.7/13.4 cm/sec. Lt. Vert. 55/17.3 cm/sec. Right Extracranial There is no significant atherosclerotic plaque noted in the right common carotid artery. There is intimal thickening but no significant atherosclerotic plaque noted in the right internal carotid artery. There is no significant atherosclerotic plaque noted in the right external carotid artery. Antegrade flow is noted in the right vertebral artery. Left Extracranial There is no significant atherosclerotic plaque noted in the left common carotid artery. There is no significant atherosclerotic plaque noted in the left internal carotid artery. There is no significant atherosclerotic plaque noted in the left external carotid artery. Antegrade flow is noted in the left vertebral artery. Procedure Carotid Duplex [id number]. Exam performed in department. Interpretation Summary Mild (<50%) stenosis right extracranial internal carotid. Mild (<50%) stenosis left extracranial internal carotid. Flow within the vertebral arteries is antegrade bilaterally. Ordering Physician: Noelle Bowden Referring Physician: Noelle Bowden Performed By: China Nation RVT and Student 06/25/18 0753 Date Michael Lopez MD CC: Noelle Bowden DO Date Dictated: 06/20/18 1108 Date Transcribed: 06/25/18752 Clinical Statistics Manager: Signed Noelle Bowden Work Phone: Start: 05-27-2018 End: 05-27-2018 Emergency Department Summary Comments: See Note; NOTES: [facility] Medical Records Department [address] [place] [address] Emergency Department Summary 05/27/18 0838 MR#: [id number] Acct: [id number] Name: FELICITY VILLA V Rep #: [id number] : 1965 53 From: Abdirahman Perdue MD PCP: Noelle Bowden DO Status: REG ER - ER Visit Summary Date of Service: 05/27/18 Chief Complaint: Chest pain History of Present Illness: The patient is a 53 F with 1 hour of chest pain, aching across her chest. This is now just resolved. She has no fever or chills. The pain does not radiate into her abdomen or jar region there is no back pain. She does not feeling a tearing sensation. She has no PE risk factors or calf pain. Pain is mild to moderate, again this has resolved. Physical Examination: Not appear in acute distress. Moist mucous membranes, no obvious facial deformity No C-spine tenderness supple neck. Regular rate and rhythm without any obvious murmurs Clear lungs bilaterally speaking in full sentences without any obvious respiratory distress Abdomen soft and nontender no guarding or rebound Moves all extremities without any difficulty or pain. Skin does not show any obvious rashes or lesions, no trauma. Alert oriented 3 with no gross focal deficit Emergency Department Course and Treatment: Patient has an unremarkable workup, however she has T-wave inversions in the anteroseptal leads which are changed from prior EKG, her heart score is a 4 therefore I will admit for further workup Disposition: Admit to the hospitalist in stable condition Impression: Chest pain This note was generated with [employer] dictation software. It may contain incorrect words, spelling, and punctuation that were not noted in review of the chart prior to signing ED Disposition - Plan for ED Patient: Chief Complaint: Chest Pain Referrals: Noelle Bowden, [Primary Care Provider] - What to do if you have Problems For any increased pain, shortness of breath, bleeding, nausea or vomiting, chest pain, or any unexpected problems, contact your Primary Care Provider. Call [facility] ([phone]) or report to the closest Emergency Room. Call 911 if necessary. 05/27/18921 <Electronically signed by Abdirahman Perdue MD> Date Abdirahman Perdue MD Cosigner Signature (If Indicated): Date CC: Noelle Hawthorne Start: 05-27-2018 End: 05-27-2018 Chest 1 View (Portable) Comments: See Note; NOTES: [facility] Imaging Services [address] [place] [address] Chest 1 View (Portable) MR#: [id number] Acct: [id number] Name: FELICITY VILLA V Rep #: [id number] : 1965 F 53 From: Terry Pérez MD PCP: Noelle Bowden DO Status: REG ER Study: Chest 1 View (Portable) Date of Exam: 05/27/18 Exam# [id number] Ordering Dr: Abdirahman Perdue MD STUDY: X-RAY CHEST REASON FOR EXAM: Female, 53 years old. Chest pain. TECHNIQUE: Single AP portable view of the chest. COMPARISON: Comparison is made with prior examination dated August 22, 2012. FINDINGS: EKG electrodes are seen. Hyperinflation. The lungs are clear. There is no demonstrated pleural abnormality. Normal size heart. Normal mediastinum and herman. Normal visualized pulmonary arteries. Normal visualized aortic arch and descending thoracic aorta. Normal visualized thoracic spine. Normal visualized ribs, clavicles, and shoulders. There is no demonstrated abnormality of the visualized soft tissue structures of the upper abdomen. RAD/Chest 1 View (Portable) IMPRESSION: Hyperinflation. Electronically Signed: Terry Pérez MD at 9:19 EDT Tel [phone], Service support , CC: Noelle Bowden DO; Abdirahman Perdue MD Clinical Statistics Manager: Signed Noelle Bowden Start: 10-02-2017 End: 10-02-2017 Urgent Care Visit Report Comments: See Note; NOTES: [place] [address] OFFICE VISIT Date of Service: 10/02/17 MR#: [id number] Acct: [id number] Name: KADIE VILLALINE Carin Rep #: [id number] : 1965 Provider: Ignacio COFFMAN Age/Sex: 52/F Location: [facility] Status: Signed Intake Vital Signs10/02/17 Height 5 ft 3 in Intake Visit Reasons: Sinus infection Is patient in pain?: No Allergies No Known Allergies Allergy (Unverified 10/02/17 13:12) Medications aspirin 81 mg tablet,delayed release 81 mg PO QDAY 09/28/17 [History Confirmed 09/28/17] lorazepam 1 mg tablet 1 mg PO BID 09/28/17 [History Confirmed 09/28/17] nitrofurantoin monohydrate/macrocrystals 100 mg capsule 1 cap PO Q12H 5 Days #10 cap 09/28/17 [Rx Confirmed 09/28/17] PFS Medical History Urinary tract infection (Acute) Social History Smoking Status: Current every day smoker alcohol intake: current alcohol intake frequency: a few times a month Alcohol type: wine HPI Sinusitis: Chief Complaint: sinus pressure Details: FELICITY VILLA, is a 52 F who presents to the office today for initial evaluation 4 day history of sinus pressure and postnasal drip. Patient notes occasional chills and myalgias and headache with a scant dry cough, and is concerned she may have the flu. She notes no complaints of sweats or rash or chest pain/shortness of breath. She is a non-smoker. She notes no other associated symptoms and no other alleviating factors. ROS Const Constitutional: Positive for chills, body ache and fatigue; no excessive sweating, abnormal sleep pattern, fever(s) or night sweats Eyes Eyes: No change in vision ENT ENT: Positive for post nasal drip and sinus pressure; no abnormal hearing, ear pain, ear discharge, ear pressure or hearing loss Resp Respiratory: Positive for cough; no chest congestion Cardio Cardiology: No excessive sweating, chest pain at rest, chest pain with exertion, shortness of breath, dyspnea on exertion, irregular heart rhythm, generalized swelling or leg pain with exertion Gastro GI: No abdominal pain, change in stool character or change in bowel habits Musc Musculoskeletal: No joint pain, back pain or limited range of motion Skin Skin: No change in hair or sores Neuro Neurology: No abnormal hearing, abnormal speech or abnormal movements Psych Psychiatric: No abnormal sleep pattern Endo Endocrine: Positive for fatigue; no excessive sweating, change in body appearance, cold intolerance or heat intolerance Aller/Imm Allergy/Immunologic: No food intolerance Francisco Javier/Lymp Hematologic/Lymphatic: No easy bruising Exam Const General: cooperative, healthy appearing, no acute distress Nutritional Appearance: average body habitus Orientation: alert, awake, oriented x3 HENMS Head: normal to inspection Ears: hearing grossly normal bilaterally, external ears normal, TM's normal bilaterally, EAC's normal Nose: external nose normal, nares normal, septum normal, no nasal discharge Face and sinus: normal facial exam, sinuses nontender, face symmetric Mouth: oral mucosae normal, lip normal, oropharynx normal, tongue normal Teeth and gingiva: dentition normal Throat: posterior oropharynx normal, tonsils normal Eyes General: appearance normal, both eyes and all related structures Neck Neck: normal visual inspection, full ROM, no lymphadenopathy, no meningeal signs, supple Neck mass: No Thyroid: thyroid normal Lymphatic: no lymphadenopathy noted Chest Chest palpation AND inspection: normal inspection of the chest Resp Effort AND Inspection: normal respiratory effort, able to speak in complete sentences, cough Quality of cough: dry Auscultation: Bilateral: Clear to Auscultation Cardio Palpation: normal PMI Rate: regular rate Rhythm: regular rhythm Heart Sounds: S1 normal, S2 normal, no gallops, no murmurs, no rubs Pulses: radial pulses present GI Inspection: normal to inspection Palpation: soft, no hepatosplenomegaly Skin General: no rashes or lesions noted Neuro General: alert, awake, oriented x3, gait normal Cognition: normal cognition Speech: speech normal Gait: normal gait Motor: muscle tone normal throughout Sensory Exam: no sensory deficits noted Extrem General: normal to inspection Psych Appearance: grossly normal Mental Status: mental status grossly normal Mood: congruent mood Affect: normal affect Speech and Movement: speech and movement normal Attitude: cooperative Thought Process: normal Thought Content: normal Judgment: judgment good Results [facility] Office Flu A AND B Negative FLU A AND B Last Edit by Ping De La Torre on 10/02/17 13:21 Assessment AND Plan 1. Sinusitis J32.9 2. URI (upper respiratory infection) J06.9 Plan Patient where today's rapid flu test was negative. Work excuse given to patient. Clear fluids, rest, Advil/Tylenol/OTC antihistamine decongestant as needed for symptomatic relief. Follow-up with PCP in 5-7 days should symptoms not improved, sooner should symptoms worsen or any other concerns develop. Patient states acknowledging understanding all the above. Plan Detail Other Orders Orders: Coding Level of Care Code Off vis,est,level 3 Diagnoses Sinusitis J32.9 URI (upper respiratory infection) J06.9 10/02/17 1340 <Electronically signed by Ignacio COFFMAN> Date Ignacio COFFMAN Cosigner Signature: Date (if applicable) CC: Noellegonzales Bowden Start: 09-28-2017 End: 09-28-2017 Urgent Care Visit Report Comments: See Note; NOTES: [facility] [address] [place] [address] OFFICE VISIT Date of Service: 09/28/17 MR#: [id number] Acct: [id number] Name: ALLENFELICITY V Rep #: [id number] : 1965 Provider: Jason COFFMAN Age/Sex: 52/F Location: [facility] Status: Signed Intake Vital Signs09/28/17 Height 5 ft 3 in Intake Visit Reasons: Urinary tract infection Is patient in pain?: No Allergies No Known Allergies Allergy (Unverified 09/28/17 08:21) Medications aspirin 81 mg tablet,delayed release 81 mg PO QDAY 09/28/17 [History Confirmed 09/28/17] lorazepam 1 mg tablet 1 mg PO BID 09/28/17 [History Confirmed 09/28/17] nitrofurantoin monohydrate/macrocrystals 100 mg capsule 1 cap PO Q12H 5 Days #10 cap 09/28/17 [Rx Confirmed 09/28/17] phenazopyridine 100 mg tablet 100 mg PO TID PRN 0 Days #7 tab 09/28/17 [Rx Confirmed 09/28/17] PFSH Social History Smoking Status: Current every day smoker alcohol intake: current alcohol intake frequency: a few times a month Alcohol type: wine HPI Urinary tract infection: Details: FELICITY VILLA, is a 52 F who presents to the office today for dysuria and frequency for the past 2 days. Patient states that she has had multiple UTIs in the past with the same symptoms. She does report taking Pyridium yesterday which did help then however she ran out and has had the frequency since. She has had no loss of bowel or bladder function. She denies fever, chills, sweats. No chest pain or shortness of breath. No other associated symptoms or alleviating/aggravating factors. ROS Const Constitutional: No body ache, chills or fever(s) Resp Respiratory: No shortness of breath Cardio Cardiology: No lightheadedness, palpitations or irregular heart rhythm Gastro GI: No abdominal pain Genitourinary-Female: Positive for burning urination, painful urination and urinary frequency; no pelvic pain, painful intercourse or blood in urine Neuro Neurology: No confusion or behavioral changes Psych Psychiatric: No confusion, No behavioral changes Exam Const General: cooperative, healthy appearing Resp Effort AND Inspection: normal respiratory effort Auscultation: Bilateral: Clear to Auscultation Cardio Rate: regular rate Rhythm: regular rhythm GI Auscultation: normal bowel sounds General: No CVA tenderness Psych Appearance: grossly normal Mental Status: mental status grossly normal Results [facility] Office Urine Color YELLOW Last Edit by Ping De La Torre on 09/28/17 08:35 Office Urine Clarity Clear Last Edit by Ping De La Torre on 09/28/17 08:35 Assessment AND Plan 1. Acute cystitis without hematuria N30.00; N30.00 Status Acute Plan Encouraged to get plenty of rest, drink lots of clear liquids, and use Tylenol or Ibuprofen (unless contraindicated) for fever and comfort. Patient also educated on other symptomatic management techniques. To be seen in 7-10 days if no improvement; sooner if worsening of symptoms. Patient advised of potential red flags when appropriate report to the ED. Patient verbalized understanding all of the above. Plan Detail Other Orders Orders: Other Medications New: nitrofurantoin monohyd/m-cryst 100 mg administer with a meal1 cap PO Q12H 5 days N39.0 /food; swallow whole; do not open, crush, dissolve , or chew Coding Level of Care Code Off vis,new,level 3 Diagnoses Acute cystitis without hematuria N30.00; N30.00 Urinary tract infection type: acute cystitis Hematuria presence: without hematuria 09/28/17 0933 <Electronically signed by Jason COFFMAN> Date Jason COFFMAN Cosigner Signature: Date (if applicable) CC: Noelle Bowden Start: 10-12-2016 End: 10-12-2016 SCREENING MAMM (CAD), BIL Comments: See Note; NOTES: [facility] Imaging Services [address] [place] [address] [place]dana 4d SCREENING MAMM (CAD), [facility] MR#: [id number] Acct: [id number] Name: FELICITY VILLA V Rep #: [id number] : 1965 F 51 From: Terry Pérez MD PCP: Noelle Bowden DO Status: [facility] Study: SCREENING MAMM (CAD), [facility] Date of Exam: 10/12/16 Exam# [id number] Ordering Dr: Noelle Bowden DO MAMMOGRAPHY - BILATERAL SCREENING REASON FOR EXAM: Female, 51 years old. Routine annual screening examination. PERTINENT HISTORY: Sister with breast cancer. TECHNIQUE: Digital bilateral breast richard (3D mammographic acquisition) in the CC and MLO projections. 2-D mediolateral oblique (MLO) and craniocaudad (CC) views of both breasts were obtained. CAD: Full Field Digital Mammography with Computer Added Detection was performed. COMPARISON: Comparison is made with prior study dated September 12, 2011. FINDINGS: Breast Composition: The breasts are heterogeneously dense, which may obscure small masses. There are no dominant masses or suspicious calcifications. No other significant abnormalities are identified. There has been no significant change since the prior study. HPBI/SCREENING MAMM (CAD), BILAT IMPRESSION: Stable bilateral screening mammogram. Yearly follow-up mammogram recommended. (A) ASSESSMENT CATEGORY: BIRADS Category 1: Negative. A letter regarding these results will be sent to the patient by the facility within 30 days. Approximately 10% of breast cancers are not detected by mammography. A normal mammogram should not delay biopsy of a clinically suspicious abnormality. [id number] Electronically Signed: Terry Pérez MD at 9:20 EST Tel [phone], Service support [phone], CC: Noelle Bowden DO Clinical Statistics Manager: Signed Noelle Bowden Work Phone: Start: 11-05-2015 End: 11-05-2015 Carotid Duplex Ultrasound Comments: See Note; NOTES: [facility] Cardiovascular Services [address] [place] [address] Carotid Duplex Ultrasound 11/02/15 0955 MR#: [id number] Acct: [id number] Name: FELICITY VILLA V Rep #: [id number] : 1965 50 From: Michael Lopez MD Attending Dr: Maria Elena Orr DO Status: REG CLI Ordering Dr: Maria Elena Orr DO Date: 11/02/15 Location: [facility] Sex: F C Admitted: Rt. Velocities/BP Lt. Velocities/BP Prox CCA 86.2/24.0 cm/sec. Prox CCA 106.0/30.5 cm/sec. Mid CCA 85.0/19.3 cm/sec. Mid CCA 103.0/30.5 cm/sec. Dist CCA 80.9/24.6 cm/sec. Dist CCA 87.4/28.7 cm/sec. Prox ICA 68.6/27.6 cm/sec. Prox ICA 76.3/30.4 cm/sec. Mid ICA 97.3/39.9 cm/sec. Mid ICA 97.9/38.7 cm/sec. Dist ICA 86.1/32.5 cm/sec. Dist ICA 106.0/40.4 cm/sec. Rt. ICA/CCA = 1.1. Lt. ICA/CCA = 1.0. Prox ECA 110.0/23.5 cm/sec. Prox ECA 92.6/24.0 cm/sec. Rt. Vert. 57.5/17.6 cm/sec. Lt. Vert. 60.9/19.9 cm/sec. Right Extracranial There is no significant atherosclerotic plaque noted in the right common carotid artery. There is no significant atherosclerotic plaque noted in the right internal carotid artery. There is no significant atherosclerotic plaque noted in the right external carotid artery. Antegrade flow is noted in the right vertebral artery. Left Extracranial There is intimal thickening but no significant atherosclerotic plaque noted in the left common carotid artery. There is no significant atherosclerotic plaque noted in the left internal carotid artery. There is no significant atherosclerotic plaque noted in the left external carotid artery. Antegrade flow is noted in the left vertebral artery. Procedure Carotid Duplex [id number]. Exam performed in department. Interpretation Summary Mild (<50%) stenosis right extracranial internal carotid. Mild (<50%) stenosis left extracranial internal carotid. Flow within the vertebral arteries is antegrade bilaterally. Ordering Physician: Maria Elena Orr Performed By: China Nation RVT 11/05/15 1152 Date Michael Lopez MD CC: Maria Elena Orr DO; Noelle Bowden DO Date Dictated: 11/02/15 0955 Date Transcribed: 11/05/15 1152 Clinical Statistics Manager: Signed Maria Elena Orr Work Phone: Start: 09-02-2015 End: 09-05-2015 Echocardiogram Complete Comments: See Note; NOTES: [facility] Cardiovascular Services [address] [place] [address] Echo Complete 09/02/15 0839 MR#: [id number] Acct: [id number] Name: FELICITY VILLA V Rep #: [id number] : 1965 50 From: Abdirahman Butler MD Attending Dr: Maria Elena Orr DO Status: REG CLI Ordering Dr: Maria Elena Orr DO Date: 09/02/15 Location: [facility] Sex: F C Admitted: Procedure This was a 2D Doppler, Color Flow transthoracic echocardiogram. The exam was of adequate technical quality. Exam performed in department. Left Ventricle Normal LV size. Left ventricular systolic function is normal. The estimated ejection fraction is 60 %. No regional wall motion abnormalities noted. Right Ventricle Normal RV size. Normal systolic function. Atria Normal left atrium. Normal right atrium. No doppler evidence for ASD. Mitral Valve There is no mitral annular calcification. Normal mitral valve. Trivial mitral valve insufficiency. Tricuspid Valve Normal tricuspid valve. Trivial tricuspid valve insufficiency. Aortic Valve Trisinus/trileaflet aortic valve. Normal aortic valve. Pulmonic Valve The pulmonic valve is not well visualized. Trivial pulmonic valve insufficiency. Great Vessels Normal sized aortic root. Pericardium/Pleural No pericardial effusion. MMode/2D Measurements AND Calculations LVIDd: 4.3 cm IVSd: 0.84 cm Ao root diam: 2.7 cm LAV(MOD-bp): 27.7 ml LVIDs: 3.0 cm LVPWd: 0.93 cm Ao root area: 5.5 cm2 LAV(MOD-bp) Indexed: 17.6 ml /m2 RVDd: 2.6 cm FS: 29.9 % LA dimension: 3.6 cm LAV(MOD-sp2): 30.5 ml LAV(MOD-sp4): 22.2 ml LA A4 area: 10.6 cm2 RA A4 area: 8.4 cm2 Doppler Measurements AND Calculations MV E max oz: Lat Peak E' Oz: Med Peak E' Oz: Ao V2 max: 71.4 cm/sec 10.3 cm/sec 10.3 cm/sec 108.4 cm/sec MV A max oz: Ao max P.7 mmHg 57.3 cm/sec MV E/A: 1.2 LV V1 max: 95.4 cm/sec PA V2 max: 78.8 cm/sec E/E' lat: 6.9 E/E' med: 6.9 LV V1 max P.6 mmHg PA max P.5 mmHg Interpretation Summary Left ventricular systolic function is normal. The estimated ejection fraction is 60 %. Trivial mitral valve insufficiency. Trivial tricuspid valve insufficiency. Trivial pulmonic valve insufficiency. Ordering Physician: Maria Elena Orr Performed By: Clair [place] RDCS 09/02/15 1829 Date Abdirahman Butler MD CC: Maria Elena Orr DO; Noelle Bowden DO Date Dictated: 09/02/15 0839 Date Transcribed: 09/02/15 1829 Clinical Statistics Manager: Signed Maria Elena Orr Work Phone: Start: 09-02-2015 End: 09-05-2015 Brain/Head W/WO Contrast Comments: See Note; NOTES: [facility] Imaging Services [address] [place] [address] Verdana 4d Brain/Head W/WO Contrast MR#: [id number] Acct: [id number] Name: FELICITY VILLA V Rep #: [id number] : 1965 F 50 From: Terry Pérez MD PCP: Noelle Bowden DO Status: REG CLI Study: Brain/Head W/WO Contrast Date of Exam: 09/02/15 Exam# [id number] Ordering Dr: Maria Elena Orr DO STUDY: CT BRAIN WITH AND WITHOUT CONTRAST REASON FOR EXAM: Female, 50 years old. 2 month history of headaches. RADIATION DOSAGE (If Supplied By Facility): CTDIvol = ( 58.35 ) mGy, DLP = ( 977.38 ) mGycm TECHNIQUE: Transaxial CT imaging of the brain was performed pre and post contrast administration. The examination was performed with intravenous administration of 75CC ml of Isovue 370 contrast material. COMPARISON: None. FINDINGS: Normal soft tissue structures. Normal calvarium. Normal size ventricles and extra-axial spaces for the patient's age. Normal white matter tracts of the cerebral hemispheres. Normal basal ganglia and thalami. Normal brainstem. Normal cerebellum. There is no intracranial hemorrhage. There are no findings of an acute ischemic infarction. Partial opacification of the left maxillary sinus. Nasal septal deviation towards the left side of the midline. IMPRESSION: Partial opacification of the left maxillary sinus. Electronically Signed: Terry Pérez MD at 14:29 EST Tel [phone], Service support [phone], CC: Maria Elena Orr DO; Noelle Bowden DO Clinical Statistics Manager: Signed Maria Elena Orr Work Phone: Start: 09-02-2015 End: 09-05-2015 Chest WITH Contrast Comments: See Note; NOTES: [facility] Imaging Services [address] [place] [address] Verdana 4d Chest WITH Contrast MR#: [id number] Acct: [id number] Name: FELICITY VILLA V Rep #: [id number] : 1965 F 50 From: Terry Pérez MD PCP: Noelle Bowden DO Status: REG CLI Study: Chest WITH Contrast Date of Exam: 09/02/15 Exam# [id number] Ordering Dr: Maria Elena Orr DO STUDY: CT CHEST WITH CONTRAST REASON FOR EXAM: Female, 50 years old. 2 month history of chest pain. RADIATION DOSAGE (If Supplied By Facility): CTDIvol = ( 15.61 ) mGy, DLP = ( 562.46 ) mGycm TECHNIQUE: Transaxial imaging was performed following intravenous administration of 75CC ml of Isovue 370 contrast material. Multiplanar coronal and sagittal images were reformatted. COMPARISON: None. FINDINGS: Hyperinflation. Mild increased densities at the lung apices worse on the right side suggestive of a bilateral apical scarring. There is no evidence of consolidation. There is no evidence of mass lesion. There is no demonstrated pleural abnormality. Normal heart and pericardium. Normal mediastinum. Normal hilar regions. Normal enhanced pulmonary arteries. Normal aorta arch and descending thoracic aorta. There are mild degenerative changes of the thoracic spine. Several cysts are seen in the liver. IMPRESSION: Hyperinflation. Findings suggestive of bilateral apical scarring. Hepatic cysts. Electronically Signed: Terry Pérez MD at 13:49 EST Tel [phone], Service support [phone], CC: Maria Elena Orr DO; Noelle Bowden DO Clinical Statistics Manager: Signed Maria Elena Orr Work Phone: Start: 09-02-2015 End: 09-05-2015 Nuclear Stress Test - Treadmil Comments: See Note; NOTES: [facility] Imaging Services [address] [place] [address] Altadana 4d Nuclear Stress Test - Treadmil MR#: [id number] Acct: [id number] Name: FELICITY VILLA V Rep #: [id number] : 1965 50 From: Abdirahman Butler MD Primary Care: Noelle Bowden DO Status: REG CLI Ordering Dr: Maria Elena Orr DO Sex: F C DATE OF SERVICE: 09/02/2015 EXERCISE TOLERANCE TEST: The patient exercised on a Ferny protocol for 12 minutes completing stage 4, achieving a peak heart rate of 164 beats per minute (96% predicted maximum heart rate) and a peak blood pressure of 154/58 mmHg and a peak MET capacity of approximately 13 METs. The baseline rhythm was normal sinus rhythm. The peak exercise ECG demonstrated somatic/motion artifact with no obvious ECG changes. There was an isolated PVC during recovery. The functional capacity was considered excellent. The patient had no complaint of chest discomfort during exercise or recovery. The examination was discontinued secondary to dyspnea. IMPRESSION: 1. Technically adequate (percent predicted maximum heart rate greater than 85%), exercise tolerance test. 2. Peak exercise ECG with somatic/motion artifact with no obvious ECG changes. 3. Isolated premature ventricular contraction during recovery. 4. Nuclear images pending. MYOCARDIAL PERFUSION IMAGING STUDY TECHNIQUE: The patient was injected with 11.0 mCi of Tc99m Cardiolite and subsequently rest SPECT Cardiolite nuclear imaging was obtained in the horizontal long, vertical long and short axes views. The patient exercised on a Ferny protocol for 12 minutes completing stage 4, achieving a peak heart rate of 164 beats per minute (96% predicted maximum heart rate) with a peak blood pressure of 154/58 mmHg and a peak MET capacity of 13 METs. The patient was injected with 33.0 mCi of Tc99m Cardiolite and subsequently stress SPECT Cardiolite nuclear imaging was obtained in the horizontal long, vertical long and short axes views. A gated Cardiolite study at peak stress was obtained. INTERPRETATION: Rest and stress SPECT Cardiolite nuclear imaging status post realignment and normalization demonstrate relative uniform tracer uptake and myocardial perfusion appearing within normal limits. There is end systolic thickening and brightening. The gated Cardiolite study demonstrates myocardial thickening and inward wall motion. The reported LVEF is 64%. IMPRESSION: 1. Rest and stress SPECT Cardiolite nuclear imaging demonstrate relative uniform tracer uptake and myocardial perfusion appearing within normal limits. 2. The gated Cardiolite study reports an LVEF of 64%. Abdirahman Butler MD T: NTS JOB: [id number] 09/03/15906 <Electronically signed by Abdirahman Butler MD> Date Abdirahman Butler MD CC: Maria Elena Orr DO; Noelle Bowden DO Date Dictated: 09/02/15937 Date Transcribed: 09/02/15937 Clinical Statistics Manager: Signed Maria Elena Orr Work Phone: Start: 08-30-2015 End: 08-31-2015 Pelvic (Non ) Comments: See Note; NOTES: [facility] Imaging Services [address] [place] [address] Verdana 4d Pelvic (Non ) MR#: [id number] Acct: [id number] Name: FELICITY VILLA V Rep #: [id number] : 1965 F 50 From: Yg Evans MD PCP: Noelle Bowden DO Status: REG CLI Study: Pelvic (Non ) Date of Exam: 08/30/15 Exam# [id number] Ordering Dr: Maria Elena Orr DO STUDY: ULTRASOUND OF THE FEMALE PELVIS - COMPLETE REASON FOR EXAM: Female, 50 years old. Pelvic pain TECHNIQUE: Transabdominal TECHNICAL QUALITY: Adequate. COMPARISON: None. FINDINGS: The uterus is anteverted and is in a midline position. The uterus measures 7.0 x 4.6 x 3.6 cm. Normal uterine cervix. The endometrium measures 2 mm in thickness, and is hyperechoic. There is no demonstrated endometrial mass. There is no demonstrated myometrial mass. I.U.D. - The patient does not have an I.U.D. The right ovary is visualized. The right ovary measures 2.4 x 1.6 x 1.1 cm. There is no right ovarian cyst or ovarian mass. There is no visualized right adnexal mass or complex lesion. There is normal arterial and normal venous vascularity. The left ovary is visualized. The left ovary measures 2.9 x 3.6 x 1.1 cm. There is no left ovarian cyst or ovarian mass. There is no visualized left adnexal mass or complex lesion. There is normal arterial and normal venous vascularity. There is no fluid in the cul-de-sac. The pre void volume of the bladder was 840 ml. IMPRESSION: Normal female pelvis. Electronically Signed: Yg Evans MD at 3:27 EST Tel , Service support [phone], CC: Maria Elena Orr ; Noelle Bowden DO Clinical Statistics Manager: Signed [employer] Phone: Start: 08-29-2015 End: 08-29-2015 Ecg routine ecg w/least 12 lds w/i&r [MEASUREMENTS ANALYSIS] Date of Test: 08/29/2015 10:48:29; Heart Rate: 77; NJ Interval: 116; QRS: 90; QT Interval: 394; Corrected QT Interval (QTc): 423; P Wave Vincent: 35; QRS Wave Vincent: 53; T Wave Vincent: 57; Blood Pressure: 102/64 [ECG DIAGNOSTIC STATEMENTS] Date of Test: 08/29/2015 10:48:29; Summary: Sinus Rhythm -Short NJ syndrome Andree = 116- T-abnormality - Anteroseptal/anterior ischemia. ABNORMAL [facility] Phone: Comment on above: ekg- sinus with asymetric t wave inversi on ant- noted to be in v3 now not previoulsy Start: 08-29-2015 End: 08-29-2015 Spmtry w/vc expiratory giorgio w/wo mxml vol vntj _ Maria Elena Orr Work Phone: Comment on above: good effort and curve normal Start: 08-01-2015 End: 08-02-2015 Inital Evaluation - PT Comments: See Note; NOTES: [facility] [address] [place] [address] Fax REHABILITATION SERVICES INITIAL EVALUATION MR#: [id number] Acct: [id number] Name: FELICITY VILLA V Rep #: [id number] : 1965 50 From: Delmi Castro Referring Dr.: Maria Elena Orr DO Status: REG RCR Insurance: [facility] [employer] SERVICES Eval Date: Patient's Visit Information FELICITY VILLA is a 50 year old F, referred to Physical Therapy by Maria Elena Orr,, with a diagnosis of lumbar radiculopathy. Date of Evaluation: 07/28/15 Physical Therapist: Delmi Castro - Visit Plan Frequency: 2x /Week Duration: 4 Weeks - Subjective This 50 y/o female presents to phyical therapy with lumbar pain left radicular for few weeks. Patient has history of back intermitant. Location symmtrical low back .sacral to anterior thigh ocaasional both legs ache/toothache.Symptoms worse bending ,lifting ,in/out car ,sitting, satnding. Better with walking.sleeping okay. Coughing/sneezing increase symtoms.Bowel/bladder good.History of cervical pain. Seen chropractor for treatment manipulation neck and back. 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 SOCIAL: - Objective POSTURE:mild posture ,reduce lordosis. GAIT:normal nicole. PALPATION; unremarable. MMT:4/5 grossly hams/quads/hip flexion/ankle 4/5. SYMMTRICAL: inact ,align. LUMBAR ROM: flexion min loss,ext min,side glides min. FLEXABILITY: hams/hip WFL - Special Tests L/S Slump test left side: Positive L/S Left Straight Leg Raise: Negative L/S Right Straight Leg Raise: Negative Lumbar Standing: Flexion - Mechanical Response: No effect Lumbar Standing: Flexion - Symptoms During Testing: Increases Lumbar Standing: Flexion - Symptoms After Testing: No worse Lumbar Standing: Extension - Mechanical Response: No effect Lumbar Standing: Extension - Symptoms During Testing: Abolishes Lumbar Standing: Extension - Symptoms After Testing: Better Lumbar Lying: Flexion - Mechanical Response: No effect Lumbar Lying: Flexion - Symptoms During Testing: Increases Lumbar Lying: Flexion - Symptoms After Testing: Worse Lumbar Lying: Extension - Mechanical Response: No effect Lumbar Lying: Extension - Symptoms During Testing: Decreases Lumbar Lying: Extension - Symptoms After Testing: Better - Goals Goal 1:: Indepenant with posture for ADL'S Goal Time Frame: 2-4 Weeks Goal 2:: Independant with posture /body mechanics to manage pain Goal Time Frame: 2-4 Weeks Goal 3:: Decrease LBP and radicular by 75% or greater to improve function. Goal Time Frame: 2-4 Weeks Goal 4:: PATIENT ABLE TO PERFORM JOB DEMAND AND AND ADL'S WITHOUT PROBLEM. Goal Time Frame: 4-6 Weeks Goal 5:: Patient to be D/C to prophalaxis for function of recovery Goal Time Frame: 2-4 Weeks - Rehabilitation Potential Physical Therapy Diagnosis: Vishal patient presents to physical therapy with lumbar radicular symptoms due to derrangement below knee ,responed with extension worse with flexion thus benifit from skilled Pt Rehabilitation Potential: Good - Anticipated Interventions Patient/Client Instruction: Educate patient on: Condition, Plan of Care, Benefits of Fitness Program For the Purpose of:: To decrease pain, To improve muscle performance and motor function, To increase tolerance to activity/condition/position , To improve ability of physical actions for home/community/work/leisure , To increase flexibility/ROM, To improve self management, To prevent re-injury Therapeutic Exercise to Include: Strength training, Body mechanics, Postural training, Flexibilty training, Dynamic Lumbar Stabilization, Sergei Exercises For the Purpose of:: To decrease pain, To improve muscle performance and motor function, To improve ability to perform ADL's, To improve performance and independence with ADL's, To improve ability of physical actions for home/community/work/leisure , To improve self management , To prevent re-injury Manual Therapy Techniques to Include: Mobilization Comment: lumbar For the Purpose of:: To decrease pain, To increase ROM IF ES: Yes Cryotherapy (ice pack, ice massage): Yes Thermo therapy (hot pack): Yes Ultrasound (thermal/non thermal): Yes For the Purpose of:: To decrease pain, To decrease swelling/inflammation Thank you for the opportunity to evaluate your patient. For Medicare and Medicare HMO plans, please review the plan of care and approve it. It will need to be FAXED BACK to us at [phone] for Medicare purposes. Please let me know if there are questions or concerns regarding this plan of care. Physician Signature: Date: <Electronically signed by Delmi Castro > 08/01/15 1705 CC: Maria Elena Orr DO; Noelle Bowden DO Signed For Medicare only, by signing this I certify the plan of care. _ Physicians Signature Date Noelle Bowden Start: 07-18-2015 End: 07-20-2015 L/S Spine Min 4 Views Comments: See Note; NOTES: [facility] Imaging Services [address] [place] [address] Verda 4d L/S Spine Min 4 Views MR#: [id number] Acct: [id number] Name: FELICITY VILLA V Rep #: [id number] : 1965 F 50 From: Juan Minaya MD PCP: Noelle Bowden DO Status: REG CLI Study: L/S Spine Min 4 Views Date of Exam: 07/18/15 Exam# [id number] Ordering Dr: Maria Elena Orr DO STUDY: X-RAY - LUMBAR SPINE REASON FOR EXAM: Female, 50 years old. Low back pain, shooting pain x2 weeks, radiates down left leg slightly, no known injury TECHNIQUE: 5 view(s) of the lumbar spine were obtained. COMPARISON: None FINDINGS: Normal lumbar lordosis. There is no substantial scoliosis. There is a normal alignment of the vertebrae. Normal vertebral bodies and endplates. Normal disc space heights. The soft tissue structures are unremarkable. IMPRESSION: Normal x-ray examination of the lumbar spine. Electronically Signed: Juan Minaya MD, FACR at 12:39 EDT , Service support [phone], RAD/L/S Spine Min 4 Views IMPRESSION: Normal x-ray examination of the lumbar spine. Electronically Signed: Juan Minaya MD, FACR at 12:39 EDT , Service support [phone], CC: Maria Elena Orr DO; Noelle Bowden DO Clinical Statistics Manager: Signed Maria Elena Orr Work Phone: Start: 05-28-2011 Lipid 1996 panel - Serum or Plasma Hanna COFFMAN Work Phone: Plan of Treatment Date Care Activity Detail Author Start: 05-24-2024 Covid-19 Vaccine ( season) Covid-19 Vaccine ( season) [facility] Start: 05-24-2024 Influenza vaccination [facility] Start: 04-22-2024 End: 04-22-2024 Patient encounter procedure 04/22/2024 9:20 AM EDT Office Visit Orthopedics [address] [place] [address] Francisca Rivera MD [address] [place] [address] left leg f/u fx Orthopedics Comment on above: left leg f/u fx Start: 04-15-2024 End: 04-15-2024 Patient encounter procedure 04/15/2024 8:00 AM EDT Appointment Radiology [address] [place] [address] Other closed fracture of shaft of left fibula, initial encounter [S82.492A] MRI KNEE WO IVCON LEFT Radiology Comment on above: Other closed fractur e of shaft of left fibula, initial encounter [S82.492A] MRI KNEE WO IVCON LEFT Start: 03-11-2024 End: 03-11-2024 Patient encounter procedure Orthopedics Comment on above: Other closed fractur e of shaft of left fibula, initial encounter [S82.492A] gravity stress view, vm left for patient Start: 09-23-2023 Behavioral Health Screening Behavioral Health Screening [facility] Start: 05-24-2023 Covid-19 Vaccine () Covid-19 Vaccine () [facility] Start: 10-27-2020 Procedure Education Eprescribe d prescriptions (G8553) [facility]; [facility] Work Phone: Start: 07-29-2019 Procedure Education Eprescribe d prescriptions (G8553) [facility] Work Phone: Start: 07-29-2019 Provider Instruction s for Treatment [facility] Work Phone: Start: 07-29-2019 HbA1c (Bld) [Mass fraction] HGB A1C (98087) [facility] Work Phone: Start: 06-08-2019 Glucose [Mass/Vol] GLUCOSE (31887) [facility] Work Phone: Start: 06-08-2019 Lipoprotein blood qu an numbers & subclasses NMR Profile (59868) [facility] Work Phone: Start: 08-12-2018 Provider Instruction s for Treatment Reviewed Diagnostic Tests [facility] Work Phone: Start: 08-12-2018 25 hydroxy includes fractions if performed CALCIFEDIOL (58271) [facility] Work Phone: Start: 06-13-2018 Provider Instruction s for Treatment [facility] Work Phone: Start: 06-05-2018 Procedure Education Eprescribe d prescriptions (G8553) [facility] Work Phone: Start: 06-05-2018 Provider Instruction s for Treatment [facility] Work Phone: Start: 06-05-2018 Hepatitis c antibody HEPATITIS C ANTIBODY (31797) [facility] Work Phone: Start: 06-17-2017 Provider Instruction s for Treatment [facility] Work Phone: Start: 06-17-2017 Urnls dip stick/tabl et rgnt non-auto w/o micrscp Urinalysis, Office (52030) [facility] Work Phone: Start: 01-17-2017 Patient Education Chest Pain, Noncardiac: chest pain [facility] Work Phone: Start: 01-17-2017 Provider Instruction s for Treatment Reviewed Diagnostic Tests [facility] Work Phone: Start: 10-29-2016 Procedure Education Eprescribe d prescriptions (G8553) [facility] Work Phone: Start: 10-29-2016 Provider Instruction s for Treatment Follow up if no improvement or if symptoms worsen [facility] Work Phone: Start: 08-28-2016 Screening for malign ant neoplasm of cervix Cervical Cancer Screening [facility] Start: 06-18-2016 Provider Instruction s for Treatment [facility] Work Phone: Start: 06-18-2016 Blood occult fecal h gb deter ia qual feces 1-3 FECAL OCCULT- Tubes sent home (94927) [facility] Work Phone: Start: 06-18-2016 Cytp cerv/vag auto t hin layer prep mnl screen Thin prep Pap (48490) (no STD testing) [facility] Work Phone: Start: 05-28-2016 Lipid panel Lipid Screening [facility] Start: 02-09-2016 Procedure Education Eprescribe d prescriptions (G8553) [facility] Work Phone: Start: 02-09-2016 Provider Instruction s for Treatment [facility] Work Phone: Start: 12-28-2015 Patient Education Shingles (He rpes Zoster) *: rash [facility] Work Phone: Start: 12-28-2015 Provider Instruction s for Treatment Follow up if no improvement or if symptoms worsen [facility] Work Phone: Start: 10-03-2015 Tb cell mediated ant ign respnse gamma interferon Quantiferron gold test (25113) [facility] Work Phone: Start: 10-03-2015 Procedure Education Eprescribe d prescriptions (G8553) [facility] Work Phone: Start: 08-29-2015 Procedure Education Eprescribe d prescriptions (G8553) [facility] Work Phone: Start: 08-29-2015 Troponin I.cardiac [Mass/Vol] ASSAY, TROPONIN, QUANTITATIVE (aka Troponin I) (23841) [facility] Work Phone: Start: 08-29-2015 TSH Qn TSH (18905) [facility] Work Phone: Start: 08-29-2015 Blood count complete auto&auto difrntl wbc CBC W/AUTO DIFF WBC (51999) [facility] Work Phone: Start: 08-29-2015 Comprehensive metabo lic panel METABOLIC PANEL, COMPREHENSIVE (50320) [facility] Work Phone: Start: 07-18-2015 Procedure Education Eprescribe d prescriptions (G8553) [facility] Work Phone: Start: 07-18-2015 Culture bacterial quanttative colony count urine URINE JOVANNY CULTURE-STONE COL COUNT (55812) [facility] Work Phone: Start: 07-01-2015 Provider Instruction s for Treatment [facility] Work Phone: Start: 06-17-2015 Procedure Education Eprescribe d prescriptions (G8553) [facility] Work Phone: Start: 06-17-2015 Provider Instruction s for Treatment [facility] Work Phone: Start: 06-17-2015 Cytp cerv/vag auto t hin layer prep mnl screen Thin prep Pap (29519) (no STD testing) [facility] Work Phone: Start: 2015 Shingrix Vaccine (1 of 2) Shingrix Vaccine (1 of 2) [facility] Start: 05-28-2014 Diabetes Screening Diabetes Screenin g [facility] Start: 12-30-2013 Provider Instruction s for Treatment [facility] Work Phone: Start: 06-15-2013 Provider Instruction s for Treatment Reviewed Lab [facility] Work Phone: Start: 08-22-2012 Patient Education Cough: symptom [facility] Work Phone: Start: 08-22-2012 Provider Instruction s for Treatment *Antibiotic Usage Education - Female [facility] Work Phone: Start: 07-24-2012 Patient Education Neck Spasms *: neck muscle [facility] Work Phone: Start: 07-24-2012 Provider Instruction s for Treatment Reviewed Diagnostic Tests [facility] Work Phone: Start: 06-25-2012 Patient Education Neck Spasms *: neck pain [facility] Work Phone: Start: 06-25-2012 Provider Instruction s for Treatment [facility] Work Phone: Start: 06-05-2012 Patient Education [facility] Work Phone: Start: 08-07-2011 Provider Instruction s for Treatment [facility] Work Phone: Start: 08-07-2011 Free T4 [Mass/Vol] T4, FREE (T HYROXINE) (22161) [facility] Work Phone: Start: 08-07-2011 Free T3 [Mass/Vol] T3, FREE (TRIDOTHYRONINE) (16898) [facility] Work Phone: Start: 08-07-2011 TSH Qn TSH (38598) [facility] Work Phone: Start: 05-24-2011 Provider Instruction s for Treatment [facility] Work Phone: Start: 05-14-2011 Culture bacterial quanttative colony count urine URINE JOVANNY CULTURE-STONE COL COUNT (94380) [facility] Work Phone: Start: 2010 Screening for malign ant neoplasm of colon [facility] Start: 11-16-2009 Provider Instruction s for Treatment [facility] Work Phone: Start: 11-16-2009 TSH Qn TSH (70300) [facility] Work Phone: Start: 10-17-2009 Provider Instruction s for Treatment FOLLOW UP - MAKE APPT AFTER DIAGNOSTIC TESTS [facility] Work Phone: Start: 10-17-2009 Blood count complete automated CBC (AUTO) (83503) [facility] Work Phone: Start: 12-17-2007 Provider Instruction s for Treatment exercises [facility] Work Phone: Start: 03-17-2007 Provider Instruction s for Treatment [facility] Work Phone: Start: 2005 Screening for malign ant neoplasm of breast Mammogram Screening [facility] Start: 1984 Hepatitis B Vaccine (1 of 3 - 19+ 3-dose series) Hepatitis B Vaccine (1 of 3 - 19+ 3-dose series) [facility] [facility] Start: 1984 Urine microalbumin profile DTaP,Tdap,Td Vaccine (1 - Tdap) [facility] Start: 1983 Anxiety Screening Anxiety Screening [facility] Start: 1983 Depression Screening Depression Scre ening [facility] Start: 1983 Hepatitis C screening Hepatitis C Sc scooter [facility] Start: 1983 HIV screening HIV Screening [facility] End: 04-10-2025 MR Knee - left WO contrast MRI KNEE WO IVCON LEFT Radiology Routine Other closed fracture of shaft of left fibula, initial encounter 1 Occurrences starting 03/11/2024 until 04/10/2025 [facility] [place] Work Phone: Comment on above: 1 Occurrences starti ng 03/11/2024 until 04/10/2025 End: 05-22-2025 XR Ankle - left AP and Lateral and oblique XR ANKLE GENERAL 3V AP/LAT/OBL LEFT Radiology Routine Closed fracture of shaft of left fibula with routine healing, unspecified fracture morphology, subsequent encounter Other closed fracture of shaft of left fibula, initial encounter 1 Occurrences starting 04/22/2024 until 05/22/2025 [facility] Comment on above: 1 Occurrences starti ng 04/22/2024 until 05/22/2025 XR Ankle - left AP a nd Lateral and oblique XR ANKLE GENERAL 3V AP/LAT/OBL LEFT Radiology Routine Closed fracture of shaft of left fibula with routine healing, unspecified fracture morphology, subsequent encounter Other closed fracture of shaft of left fibula, initial encounter 04/22/2024 12:19 PM EDT [facility] End: 04-08-2025 XR Ankle - left Single view XR ANKLE 1V LEFT Radiology Routine Other closed fracture of shaft of left fibula, initial encounter 1 Occurrences starting 03/09/2024 until 04/08/2025 [facility] [place] Work Phone: Comment on above: 1 Occurrences starti ng 03/09/2024 until 04/08/2025 End: 05-22-2025 XR Tibia and Fibula - left AP and Lateral [facility] [place] Work Phone: Comment on above: 1 Occurrences starti ng 04/22/2024 until 05/22/2025 XR Tibia and Fibula - left AP and Lateral XR TIBIA FIBULA 2V AP/LAT LEFT Radiology Routine Closed fracture of shaft of left fibula with routine healing, unspecified fracture morphology, subsequent encounter 04/22/2024 12:19 PM EDT [facility] Work Phone: [facility] Work Phone: [facility] Work Phone: [facility] Work Phone: [facility] Work Phone[facility] Work Phone: [facility] Work Phone[facility] Work Phone: [facility] Work Phone: [facility] Work Phone: [facility] Work Phone: [facility] Work Phone: [facility] Work Phone: [facility] Work Phone: [facility] Work Phone: [facility] Work Phone: [facility] Work Phone: [facility] Work Phone: [facility] Work Phone: [facility] Work Phone: Immunizations Immunization Date Immunization Notes Care Provider [facility] 07-17-2022 influenza virus vaccine, unspecified formulation Hanna COFFMAN Work Phone: [facility] 06-23-2019 influenza, seasonal, injectable Noelle Bowden [facility] Work Phone: Payers Date Payer Category Payer Unknown 2022 Unknown [id number] 1965 Unknown [id number] 1965 Unknown [id number] Social History Date Type Detail Facility Start: 03-07-2024 End: 03-11-2024 Alcohol Use Alcohol Use [facility] Work Phone: Comment on above: Occasional alcohol u se Inactive 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 Sex Assigned At Female [facility] Start: 03-07-2024 End: 03-11-2024 Tobacco smoking status NHIS Ex-smoker [facility] End: 01-22-2024 History of tobacco use Current smoker [facility] Start: 03-07-2024 Tobacco use and exposure Former smokeless tobacco user [facility] End: 08-06-2011 History of tobacco use User of smokeless tobacco [facility] Start: 03-07-2024 End: 03-11-2024 Alcohol intake Current drinker of alcohol (finding) [facility] Start: 03-07-2024 End: 03-11-2024 Tobacco use panel [facility] Start: 08-28-2011 Alcohol Comment Occasionally [facility] Start: 1965 Sex Assigned At Not on file [facility] End: 01-22-2024 History of tobacco use Cigarette Smoker [facility] History of tobacco use Passive smoker [facility] Start: 03-11-2024 Tobacco use and exposure Smokeless tobacco non-user [facility] National Score (1-100), lower number is lower risk 54 [facility] Functional Status Date Assessment Result Facility 02-28-2024 Functional Status Independent [facility] 02-28-2024 Functional Status Standard Safet y ID band on, Call device within reach, Bed in low position, Wheels locked, Upper/Half-Length side-rails up, personal items within reach, Bedside Cart Locked, Visitor at bedside [facility] Mental Status Date Assessment Result Facility 02-28-2024 Mental Status Orientation Oriented x 4 [facility] 02-28-2024 Mental Status [facility] Clinical Notes 02-28-2024 to 04-22-2024 Francisca Rivera MD - 04/22/2024 9:22 AM EDTTelephone Encounter - Maribel Mae - 03/31/2024 9:52 AM EDTTelephone Encounter - Maribel Mae - 03/31/2024 9:52 AM EDT Note Date & Type Note Facility 04-22-2024 Note HNO ID: [id number] Author: FRANCISCA RIVERA MD Service: ? Author Type: Physician Type: Progress Notes Filed: 04/22/2024 10:17 Note Text: Felicity Villa presents today for follow-up of her left fibula shaft fracture, managed nonoperatively. The patient has been ambulating in normal shoes with a knee sleeve. She walked over a mile this morning. She discontinued the use of her hinged knee brace due to pain from the brace pushing on her lateral lower leg. Her pain is well-controlled today but she does endorse some pain with ambulation. She is taking vitamin D but not calcium. Patient denies wound issues or drainage, denies fever or chills, and denies paresthesias. Physical Exam: General: No acute distress, alert and oriented x3, Awake and alert, and Nontoxic Left Skin: Closed without ulcersations, lacerations, rashes or abrasions Vascular: Foot warm with brisk warm capillary refill and Palpable DP/PT pulse Neuro: Sensation intact L4-S1 nerve distribution and 5/5 DF/EHL/PF Musculoskeletal: Tenderness to palpation over lateral lower leg over fracture No tenderness to palpation throughout ankle No tenderness to palpation throughout knee Left knee stable to varus and valgus stress at 0 and 30 degrees of flexion, negative Lachmans, negative posterior drawer. I personally reviewed X-Ray's : with maintained alignment no interval displacement, callous formation Assessment and Plan: Patient is a 58 year old is a female Closed fracture of shaft of left fibula with routine healing, unspecified fracture morphology, subsequent encounter (primary encounter diagnosis) Non operative treatment Date of treatment/surgery: 03/11/2024 Felicity Villa is overall doing well today. Her fracture is healing on x-rays today, and her knee exam is benign. She may continue to be weightbearing as tolerated. She may benefit from physical therapy. We have provided her with a prescription for this today. She is currently taking vitamin D but not calcium, recommend that she begin taking calcium supplementation as well, which she will obtain over the counter. She will notify our office if her pain is not improving. Weightbearing and Physical Therapy: Weight bearing as tolerated, begin PT Follow up: as needed Nithin Olmstead MD Briefly, history is as follows: same. On exam, I find same. Of note is same. Assessment and plan reviewed with resident. Care plan is same. I have personally examined the patient and repeated the lockhart components of the exam/history. The assessment and plan were formulated and discussed with the resident. See resident's note for further details. Francisca Rivera MD [facility] 04-22-2024 History of Present illness Narrative Felicity Villa presents today for follow-up of her left fibula shaft fracture, managed nonoperatively. The patient has been ambulating in normal shoes with a knee sleeve. She walked over a mile this morning. She discontinued the use of her hinged knee brace due to pain from the brace pushing on her lateral lower leg. Her pain is well-controlled today but she does endorse some pain with ambulation. She is taking vitamin D but not calcium. Patient denies wound issues or drainage, denies fever or chills, and denies paresthesias. Physical Exam: General: No acute distress, alert and oriented x3, Awake and alert, and Nontoxic Left Skin: Closed without ulcersations, lacerations, rashes or abrasions Vascular: Foot warm with brisk warm capillary refill and Palpable DP/PT pulse Neuro: Sensation intact L4-S1 nerve distribution and 5/5 DF/EHL/PF Musculoskeletal: Tenderness to palpation over lateral lower leg over fracture No tenderness to palpation throughout ankle No tenderness to palpation throughout knee Left knee stable to varus and valgus stress at 0 and 30 degrees of flexion, negative Lachmans, negative posterior drawer. I personally reviewed X-Ray's : with maintained alignment no interval displacement, callous formation Assessment and Plan: Patient is a 58 year old is a female Closed fracture of shaft of left fibula with routine healing, unspecified fracture morphology, subsequent encounter (primary encounter diagnosis) Non operative treatment Date of treatment/surgery: 03/11/2024 Felicity Villa is overall doing well today. Her fracture is healing on x-rays today, and her knee exam is benign. She may continue to be weightbearing as tolerated. She may benefit from physical therapy. We have provided her with a prescription for this today. She is currently taking vitamin D but not calcium, recommend that she begin taking calcium supplementation as well, which she will obtain over the counter. She will notify our office if her pain is not improving. Weightbearing and Physical Therapy: Weight bearing as tolerated, begin PT Follow up: as needed Nithin Olmstead MD Briefly, history is as follows: same. On exam, I find same. Of note is same. Assessment and plan reviewed with resident. Care plan is same. I have personally examined the patient and repeated the lockhart components of the exam/history. The assessment and plan were formulated and discussed with the resident. See resident's note for further details. Francisca Rivera MD documented in this encounter [facility] 03-31-2024 Telephone encounter Note Patient called because she completed her MRI on 03/25/24 and would like a call back about the results. # [phone] Assessment and Plan: Patient is a 58 year old female Other closed fracture of shaft of left fibula, initial encounter Donna stress view show maintained ankle mortise and rule out Maisonneuve injury. Patient does have some mild laxity with varus and valgus stress on exam. Concern for LCL injury. Patient was placed into a hinged knee brace open to flexion and extension. MRI ordered to further evaluate. Physical therapy recommended. Will contact patient after MRI is completed with results and plan. DOI 02/28/2024 Weightbearing and Physical Therapy: Weight bearing as tolerated and Range of motion as tolerated Follow up: After MRI Judd Sandoval PA-C Briefly, history is as follows: same. On exam, I find same. Of note is same. Assessment and plan reviewed with PA. Care plan is same. I have personally examined the patient and repeated the lockhart components of the exam/history. The assessment and plan were formulated and discussed with the PA. See PA's note for further details. [facility] 03-31-2024 Miscellaneous Notes Patient called because she completed her MRI on 7/3/24 and would like a call back about the results. # [phone] Assessment and Plan: Patient is a 58 year old female Other closed fracture of shaft of left fibula, initial encounter Donna stress view show maintained ankle mortise and rule out Maisonneuve injury. Patient does have some mild laxity with varus and valgus stress on exam. Concern for LCL injury. Patient was placed into a hinged knee brace open to flexion and extension. MRI ordered to further evaluate. Physical therapy recommended. Will contact patient after MRI is completed with results and plan. DOI 02/28/2024 Weightbearing and Physical Therapy: Weight bearing as tolerated and Range of motion as tolerated Follow up: After MRI Judd Sandoval PA-C Briefly, history is as follows: same. On exam, I find same. Of note is same. Assessment and plan reviewed with PA. Care plan is same. I have personally examined the patient and repeated the lockhart components of the exam/history. The assessment and plan were formulated and discussed with the PA. See PA's note for further details. documented in this encounter [facility] 03-25-2024 History of Present illness Narrative Radiology Service Progress Note PATIENT NAME: Felicity Villa DATE OF SERVICE: March 25, 2024 TIME: 11:25 AM PATIENT IDENTITY VERIFICATION COMPLETED USING TWO (2) IDENTIFIERS: Name and Date of confirmed by patient verbally. FALL SCREENING: Has the patient had 2 falls in the last year or 1 fall with injury or currently using an Ambulatory Assistive Device (Walker, Cane, Wheelchair, Crutches, etc.)? Yes, Patient High Risk for Falls What interventions were put in place to prevent falls during this visit? Instructed Patient to Call for Help if Needed, Offered Assistance with Transfers/Clothing, Instructed Patient to Remain Seated (Not on Exam Table) Until Exam, and Increased Observations by Caregivers PATIENT GENDER DATA: Female. status: : No status: NO. PATIENT RELEVANT IMPLANT DATA REVIEWED: Yes PATIENT PRESENTS WITH AN IMPLANTABLE OR ATTACHED OPTIMIZATION MANAGER: No RADIOLOGY DEPARTMENT: MR; Exam(s) Completed: Lower MSK: Knee, left PERIPHERAL IV DATA: Not applicable SIGNED BY: RT Kanwal(R) March 25, 2024 11:25 AM documented in this encounter [facility] 03-25-2024 Note HNO ID: [id number] Author: NANI EVANS RT(R) Service: ? Author Type: Technologist Type: Progress Notes Filed: 03/25/2024 11:25 Note Text: Radiology Service Progress Note PATIENT NAME: Felicity Villa DATE OF SERVICE: March 25, 2024 TIME: 11:25 AM PATIENT IDENTITY VERIFICATION COMPLETED USING TWO (2) IDENTIFIERS: Name and Date of confirmed by patient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 for long periods. This puts more stress on your lower back than standing or walking. Use heat from a hot shower, hot bath, or heating pad to help ease pain. Massage can also help. You can also try using an ice pack. You can make your own ice pack by putting ice cubes in a plastic bag. Wrap the bag in a thin towel. Try both heat and cold to see which works best. Use the method that feels best for 20 minutes several times a day. You may use acetaminophen or ibuprofen to ease pain, unless another pain medicine was prescribed. Note: If you have chronic liver or kidney disease, talk with your healthcare provider before taking these medicines. Also talk with your provider if you ve had a stomach ulcer or gastrointestinal bleeding. Use safe lifting methods. Don t lift anything heavier than 15 pounds until all of the pain is gone. Follow-up care Follow up with your healthcare provider, or as advised. You may need physical therapy or additional tests. If X-rays were taken, a radiologist will look at them. You will be told of any new findings that may affect your care. When to seek medical advice Call your healthcare provider right away if any of these occur: Pain gets worse even after taking prescribed medicine Weakness or numbness in 1 or both legs or hips Numbness in your groin or genital area You can t control your bowel or bladder Fever Redness or swelling over your back or spine [id number] [employer]. [address] [place] [address]. All rights reserved. This information is not intended as a substitute for professional medical care. Always follow your healthcare professional's instructions. Follow Up Care 02/28/2024 21:52:36 With:NAOMIE MARTINI MD Address: [address] [place] [address] [place] [address]- [phone] When:2-[address] [facility] 02-28-2024 Note Discharge Instructions Thank you for allowing [facility] to assist you with your healthcare needs. The following is important discharge information regarding your hospital visit. Diagnosis from Today's Visit Sciatica of left side What to Do Next Instructions from Your Care Team No qualifying data available. Post Acute Orders No qualifying data available. You Need to Schedule the Following Appointments Follow Up with NAOMIE MARTINI MD When:Within 2-4 days Where:[address] [place] [address] [place] [address] [phone] Allergies No Known Medication Allergies Medications Please ask your primary doctor or pharmacist before taking any other medication not listed, including over the counter drugs, herbal medications, vitamins and or supplements as they may interact with your home medications. What How Much When Why Instructions Last Dose New acetaminophen-hydrocodone ([place] 325- 5 mg oral tablet) 1 tab(s) by mouth Every 6 hours as needed for for pain Sciatica of left side Duration: 3 Days Printed Prescription New methylPREDNISolone (Medrol 4 mg oral tablet) 6-5-4-3-2-1 tab(s) by mouth Every day Duration: 6 Days 24mg day 1, 20mg day 2, 16mg day 3, 12 mg day 4, 8mg day 5, 4mg day 6 Printed Prescription Unchanged aspirin (aspirin 81 mg oral tablet, chewable) 1 tab(s) by mouth Every day Unchanged atorvastatin (atorvastatin 40 mg oral tablet) 1 tab(s) by mouth Once a day Unchanged escitalopram (escitalopram 5 mg oral tablet) 1 tab(s) by mouth Once a day Unchanged hydroCHLOROthiazide (hydroCHLOROthiazide 25 mg oral tablet) 1 tab(s) by mouth Once a day Please take this list to your next doctor s visit. Bring all medications you take, including over the counter medications, herbals and other supplements with you to your doctor s visit. Patients and families are reminded to discard old lists and to update any records with all medication providers or retail pharmacies. Medication Leaflets acetaminophen and hydrocodone (a SEET a MIN oh fen and aleida PETER done) Verdrocet What is the most important information I should know about acetaminophen and hydrocodone? MISUSE OF OPIOID MEDICINE CAN CAUSE ADDICTION, OVERDOSE, OR . Keep the medication in a place where others cannot get to it. Taking opioid medicine during may cause life-threatening withdrawal symptoms in the . Fatal side effects can occur if you use opioid medicine with alcohol, or with other drugs that cause drowsiness or slow your breathing. Stop taking this medicine and call your doctor right away if you have skin redness or a rash that spreads and causes blistering and peeling. What is acetaminophen and hydrocodone? Acetaminophen and hydrocodone is a combination medicine used to relieve moderate to severe pain. Acetaminophen and hydrocodone contains an opioid medicine, and may be habit-forming. Acetaminophen and hydrocodone may also be used for purposes not listed in this medication guide. What should I discuss with my healthcare provider before taking acetaminophen and hydrocodone? You should not use this medicine if you are allergic to acetaminophen or hydrocodone, or if you have: severe asthma or breathing problems; or a blockage in your stomach or intestines. Tell your doctor if you have ever had: breathing problems, sleep apnea (breathing stops during sleep); liver disease; a drug or alcohol addiction; kidney disease; a head injury or seizures; urination problems; or problems with your thyroid, pancreas, or gallbladder. If you use opioid medicine while you are , your baby could become dependent on the drug. This can cause life-threatening withdrawal symptoms in the baby after it is born. Babies born dependent on opioids may need medical treatment for several weeks. Ask a doctor before using opioid medicine if you are . Tell your doctor if you notice severe drowsiness or slow breathing in the nursing baby. How should I take acetaminophen and hydrocodone? Follow all directions on your prescription label. Never take this medicine in larger amounts, or for longer than prescribed. An overdose can damage your liver or cause . Tell your doctor if you feel an increased urge to use more of this medicine. Never share this medicine with another person, especially someone with a history of drug abuse or addiction. MISUSE CAN CAUSE ADDICTION, OVERDOSE, OR . Keep the medicine in a place where others cannot get to it. Selling or giving away this medicine is against the law. Measure liquid medicine carefully. Use the dosing syringe provided, or use a medicine dose-measuring device (not a kitchen spoon). If you need surgery or medical tests, tell the doctor ahead of time that you are using this medicine. You should not stop using this medicine suddenly. Follow your doctor's instructions about tapering your dose. Store at room temperature away from moisture and heat. Keep track of your medicine. You should be aware if anyone is using it improperly or without a prescription. Do not keep leftover opioid medication. Just one dose can cause in someone using this medicine accidentally or improperly. Ask your pharmacist where to locate a drug take-back disposal program. If there is no take-back program, flush the unused medicine down the toilet. What happens if I miss a dose? Since this medicine is used for pain, you are not likely to miss a dose. Skip any missed dose if it is almost time for your next dose. Do not use two doses at one time. What happens if I overdose? Seek emergency medical attention or call the Poison Help line at . An overdose of this medicine can be fatal, especially in a child or other person using the medicine without a prescription. Overdose symptoms may include nausea, vomiting, sweating, severe drowsiness, pinpoint pupils, slow breathing, or no breathing. Your doctor may recommend you get naloxone (a medicine to reverse an opioid overdose) and keep it with you at all times. A person caring for you can give the naloxone if you stop breathing or don't wake up. Your caregiver must still get emergency medical help and may need to perform CPR (cardiopulmonary resuscitation) on you while waiting for help to arrive. Anyone can buy naloxone from a pharmacy or local health department. Make sure any person caring for you knows where you keep naloxone and how to use it. What should I avoid while taking acetaminophen and hydrocodone? Avoid driving or operating machinery until you know how this medicine will affect you. Dizziness or drowsiness can cause falls, accidents, or severe injuries. Do not drink alcohol. Dangerous side effects or could occur. Ask a doctor or pharmacist before using any other medicine that may contain acetaminophen (sometimes abbreviated as APAP). Taking certain medications together can lead to a fatal overdose. What are the possible side effects of acetaminophen and hydrocodone? Get emergency medical help if you have signs of an allergic reaction: hives; difficulty breathing; swelling of your face, lips, tongue, or throat. Opioid medicine can slow or stop your breathing, and may occur. A person caring for you should give naloxone and/or seek emergency medical attention if you have slow breathing with long pauses, blue colored lips, or if you are hard to wake up. In rare cases, acetaminophen may cause a severe skin reaction that can be fatal. This could occur even if you have taken acetaminophen in the past and had no reaction. Stop taking this medicine and call your doctor right away if you have skin redness or a rash that spreads and causes blistering and peeling. Call your doctor at once if you have: noisy breathing, sighing, shallow breathing, breathing that stops; a light-headed feeling, like you might pass out; liver problems--nausea, upper stomach pain, tiredness, loss of appetite, dark urine, gladis-colored stools, jaundice (yellowing of the skin or eyes); low cortisol levels-- nausea, vomiting, loss of appetite, dizziness, worsening tiredness or weakness; o high levels of serotonin in the body--agitation, hallucinations, fever, sweating, shivering, fast heart rate, muscle stiffness, twitching, loss of coordination, nausea, vomiting, diarrhea. Serious breathing problems may be more likely in older adults and in those who are debilitated or have wasting syndrome or chronic breathing disorders. Common side effects include: dizziness, drowsiness, feeling tired; nausea, vomiting, stomach pain; constipation; or headache. This is not a complete list of side effects and others may occur. Call your doctor for medical advice about side effects. You may report side effects to FDA at 2-018-QXW-2945. What other drugs will affect acetaminophen and hydrocodone? You may have breathing problems or withdrawal symptoms if you start or stop taking certain other medicines. Tell your doctor if you also use an antibiotic, antifungal medication, heart or blood pressure medication, seizure medication, or medicine to treat HIV or hepatitis C. Opioid medication can interact with many other drugs and cause dangerous side effects or . Be sure your doctor knows if you also use: cold or allergy medicines, bronchodilator asthma/COPD medication, or a diuretic ('water pill'); medicines for motion sickness, irritable bowel syndrome, or overactive bladder; other opioids--opioid pain medicine or prescription cough medicine; a sedative like Valium--diazepam, alprazolam, lorazepam, Xanax, Klonopin, Versed, and others; drugs that make you sleepy or slow your breathing--a sleeping pill, muscle relaxer, medicine to treat mood disorders or mental illness; drugs that affect serotonin levels in your body--a stimulant, or medicine for depression, Parkinson's disease, migraine headaches, serious infections, or nausea and vomiting. This list is not complete. Other drugs may affect acetaminophen and hydrocodone, including prescription and gtru-mly-bpkqeeh medicines, vitamins, and herbal products. Not all possible interactions are listed here. Where can I get more information? Your doctor or pharmacist can provide more information about acetaminophen and hydrocodone. Remember, keep this and all other medicines out of the reach of children, never share your medicines with others, and use this medication only for the indication prescribed. Every effort has been made to ensure that the information provided by [employer] is accurate, up-to-date, and complete, but no guarantee is made to that effect. Drug information contained herein may be time sensitive. [employer] information has been compiled for use by healthcare practitioners and consumers in the [place] and therefore [employer] does not warrant that uses outside of the [place] are appropriate, unless specifically indicated otherwise. [employer] drug information does not endorse drugs, diagnose patients or recommend therapy. [employer] drug information is an informational resource designed to assist licensed healthcare practitioners in caring for their patients and/or to serve consumers viewing this service as a supplement to, and not a substitute for, the expertise, skill, knowledge and judgment of healthcare practitioners. The absence of a warning for a given drug or drug combination in no way should be construed to indicate that the drug or drug combination is safe, effective or appropriate for any given patient. [employer] does not assume any responsibility for any aspect of healthcare administered with the aid of information [employer] provides. The information contained herein is not intended to cover all possible uses, directions, precautions, warnings, drug interactions, allergic reactions, or adverse effects. If you have questions about the drugs you are taking, check with your doctor, nurse or pharmacist. Copyright 1380-7809 [employer]. Version: 19.. Revision Date: 12/31/2023. methylprednisolone (oral) (METH il pred NIS oh lone) Medrol, Medrol Dosepak, MethylPREDNISolone Dose Pack What is the most important information I should know about methylprednisolone? You should not use this medicine if you have a fungal infection anywhere in your body. What is methylprednisolone? Methylprednisolone is a steroid that prevents the release of substances in the body that cause inflammation. Methylprednisolone is used to treat many different inflammatory conditions such as arthritis, lupus, psoriasis, ulcerative colitis, allergic disorders, gland (endocrine) disorders, and conditions that affect the skin, eyes, lungs, stomach, nervous system, or blood cells. Methylprednisolone may also be used for purposes not listed in this medication guide. What should I discuss with my healthcare provider before taking methylprednisolone? You should not use methylprednisolone if you are allergic to it, or if you have: a fungal infection anywhere in your body. Methylprednisolone can weaken your immune system, making it easier for you to get an infection. Steroids can also worsen an infection you already have, or reactivate an infection you recently had. Tell your doctor about any illness or infection you have had within the past several weeks. To make sure methylprednisolone is safe for you, tell your doctor if you have ever had: a thyroid disorder; herpes infection of the eyes; stomach ulcers, ulcerative colitis, or diverticulitis; depression, mental illness, or psychosis; liver disease (especially cirrhosis); high blood pressure; osteoporosis; a muscle disorder such as myasthenia gravis; or multiple sclerosis. Also tell your doctor if you have diabetes. Steroid medicines may increase the glucose (sugar) levels in your blood or urine. You may also need to adjust the dose of your diabetes medications. It is not known whether this medicine will harm an unborn baby. Tell your doctor if you are or plan to become . It is not known whether methylprednisolone passes into breast milk or if it could affect the nursing baby. Tell your doctor if you are breast-feeding. How should I take methylprednisolone? Follow all directions on your prescription label. Your doctor may occasionally change your dose. Do not use this medicine in larger or smaller amounts or for longer than recommended. Methylprednisolone is sometimes taken every other day. Follow your doctor's dosing instructions very carefully. Your dose needs may change if you have unusual stress such as a serious illness, fever or infection, or if you have surgery or a medical emergency. Tell your doctor about any such situation that affects you. This medicine can cause unusual results with certain medical tests. Tell any doctor who treats you that you are using methylprednisolone. You should not stop using methylprednisolone suddenly. Follow your doctor's instructions about tapering your dose. Wear a medical alert tag or carry an ID card stating that you take methylprednisolone. Any medical care provider who treats you should know that you take steroid medication. If you need surgery, tell the surgeon ahead of time that you are using methylprednisolone. You may need to stop using the medicine for a short time. Store at room temperature away from moisture and heat. What happens if I miss a dose? Call your doctor for instructions if you miss a dose of methylprednisolone. What happens if I overdose? Seek emergency medical attention or call the Poison Help line at . An overdose of methylprednisolone is not expected to produce life threatening symptoms. However, ferry terminal agent use of high steroid doses can lead to symptoms such as thinning skin, easy bruising, changes in the shape or location of body fat (especially in your face, neck, back, and waist), increased acne or facial hair, menstrual problems, impotence, or loss of interest in sex. What should I avoid while taking methylprednisolone? Avoid being near people who are sick or have infections. Call your doctor for preventive treatment if you are exposed to chicken pox or measles. These conditions can be serious or even fatal in people who are using steroid medication. Do not receive a 'live' vaccine while using methylprednisolone. The vaccine may not work as well during this time, and may not fully protect you from disease. Live vaccines include measles, mumps, rubella (MMR), polio, rotavirus, typhoid, yellow fever, varicella (chickenpox), zoster (shingles), and nasal flu (influenza) vaccine. What are the possible side effects of methylprednisolone? Get emergency medical help if you have signs of an allergic reaction: hives; difficult breathing; swelling of your face, lips, tongue, or throat. Call your doctor at once if you have: shortness of breath (even with mild exertion), swelling, rapid weight gain; bruising, thinning skin, or any wound that will not heal; blurred vision, tunnel vision, eye pain, or seeing halos around lights; severe depression, changes in personality, unusual thoughts or behavior; new or unusual pain in an arm or leg or in your back; bloody or tarry stools, coughing up blood or vomit that looks like coffee grounds; seizure (convulsions); or low potassium--leg cramps, constipation, irregular heartbeats, fluttering in your chest, increased thirst or urination, numbness or tingling. Steroids can affect growth in children. Tell your doctor if your child is not growing at a normal rate while using this medicine. Common side effects may include: fluid retention (swelling in your hands or ankles); dizziness, spinning sensation; changes in your menstrual periods; headache; mild muscle pain or weakness; or stomach discomfort, bloating. This is not a complete list of side effects and others may occur. Call your doctor for medical advice about side effects. You may report side effects to FDA at 1-417-RWP-4369. What other drugs will affect methylprednisolone? Other drugs may interact with methylprednisolone, including prescription and qnxh-wss-ajvwztc medicines, vitamins, and herbal products. Tell each of your health care providers about all medicines you use now and any medicine you start or stop using. Where can I get more information? Your pharmacist can provide more information about methylprednisolone. Remember, keep this and all other medicines out of the reach of children, never share your medicines with others, and use this medication only for the indication prescribed. Every effort has been made to ensure that the information provided by [employer]. ('[employer]') is accurate, up-to-date, and complete, but no guarantee is made to that effect. Drug information contained herein may be time sensitive. [employer] information has been compiled for use by healthcare practitioners and consumers in the [place] and therefore [employer] does not warrant that uses outside of the [place] are appropriate, unless specifically indicated otherwise. [employer] drug information does not endorse drugs, diagnose patients or recommend therapy. [employer] drug information is an informational resource designed to assist licensed healthcare practitioners in caring for their patients and/or to serve consumers viewing this service as a supplement to, and not a substitute for, the expertise, skill, knowledge and judgment of healthcare practitioners. The absence of a warning for a given drug or drug combination in no way should be construed to indicate that the drug or drug combination is safe, effective or appropriate for any given patient. [employer] does not assume any responsibility for any aspect of healthcare administered with the aid of information [employer] provides. The information contained herein is not intended to cover all possible uses, directions, precautions, warnings, drug interactions, allergic reactions, or adverse effects. If you have questions about the drugs you are taking, check with your doctor, nurse or pharmacist. Copyright 5487-3674 [employer]. Version: 9.01. Revision Date: 05/22/2017. Education Materials Sciatica Sciatica is a condition that causes pain in the lower back that spreads down into the buttock, hip, and leg. Sometimes the leg pain can happen without any back pain. Sciatica happens when a spinal nerve is irritated or has pressure put on it as comes out of the spinal canal in the lower back. This most often happens when a bulge or rupture of a nearby spinal disk presses on the nerve. Sciatica can also be caused by a narrowing of the spinal canal (spinal stenosis) or spasm of the muscle in the buttocks that the sciatic nerve passes through (pyriform muscle). Sciatica is also called lumbar radiculopathy. Sciatica may begin after a sudden twisting or bending force, such as in a car accident. Or it can happen after a simple awkward movement. In either case, muscle spasm often also happens. Muscle spasm makes the pain worse. A healthcare provider makes a diagnosis of sciatica from your symptoms and a physical exam. Unless you had an injury from a car accident or fall, you usually won t have X-rays taken at this time. This is because the nerves and disks in your back can t be seen on an X-ray. If the provider sees signs of a compressed nerve, you will need to schedule an MRI scan as an outpatient. Signs of a compressed nerve include loss of strength in a leg. Most sciatica gets better with medicine, exercise, and physical therapy. If your symptoms continue after at least 3 months of medical treatment, you may need surgery or injections to your lower back. Home care Follow these tips when caring for yourself at home: You may need to stay in bed the first few days. But as soon as possible, begin sitting up or walking. This will help you avoid problems that come from staying in bed for long periods. When in bed, try to find a position that is comfortable. A firm mattress is best. Try lying flat on your back with pillows under your knees. You can also try lying on your side with your knees bent up toward your chest and a pillow between your knees. Avoid sitting for long periods. This puts more stress on your lower back than standing or walking. Use heat from a hot shower, hot bath, or heating pad to help ease pain. Massage can also help. You can also try using an ice pack. You can make your own ice pack by putting ice cubes in a plastic bag. Wrap the bag in a thin towel. Try both heat and cold to see which works best. Use the method that feels best for 20 minutes several times a day. You may use acetaminophen or ibuprofen to ease pain, unless another pain medicine was prescribed. Note: If you have chronic liver or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
== END | disposition home or self-care (01) ==
LOC: US 13:58
PROVIDERS: PCP Internal Medicine; Referring Provider Obstetrics & Gynecology; Visit Provider Obstetrics & Gynecology
DX: N84.1 Polyp of cervix uteri (principal); N95.0 Postmenopausal bleeding
CPT/HCPCS: 76830; 76856

== ENCOUNTER 2024-08-04 11:11 | Day surgery (SDC) | payer OTHER, SELFPAY ==
[2024-08-04] VITALS (7 sets, daily range): BP systolic 103–117; BP diastolic 55–79; PULSE 67–88; RESP 16; TEMP 36.1–36.6; O2SAT 93–98; BMI 23.8
[2024-08-04 12:02] LABS: Hematocrit 39.5 % (37-47); Hemoglobin 14.5 g/dL (12.0-15.0); Mean Corp Hgb Conc 36.7 g/dL (32-36); Mean Corpuscular Hgb 28.3 pg (27.0-32.0); Mean Corpuscular Volume 77.1 fL (81-99); Mean Platelet Vol. 11.7 fl (6.2-12.0); Platelet Count 230 K/mm3 (150-450); RBC Distribution Width CV 14.6 % (11.6-14.6); RBC Distribution Width SD 39.8 fl (35.1-43.9); Red Blood Count 5.12 M/mm3 (4.2-5.4); White Blood Count 8.1 K/mm3 (4.4-11.0)
[2024-08-04] MEDS: Lidocaine 1% (20 ml mdv) 20 ML Vial (13:07)
== END 2024-08-04 14:57 | disposition home or self-care (01) ==
LOC: SDC 11:13 → AC 11:14
PROVIDERS: PCP Internal Medicine; Referring Provider Obstetrics & Gynecology; Visit Provider Obstetrics & Gynecology
PROC: 0UDB8ZZ Extraction of Endometrium, Via Natural or Artificial Opening Endoscopic (ICD-10-PCS; CPT 58558; principal; 2024-08-04 12:40)
DX: N95.0 Postmenopausal bleeding (principal); J43.9 Emphysema, unspecified; E78.00 Pure hypercholesterolemia, unspecified; I10 Essential (primary) hypertension; Z87.891 Personal history of nicotine dependence; N95.2 Postmenopausal atrophic vaginitis; N84.1 Polyp of cervix uteri; N72 Inflammatory disease of cervix uteri; Z79.82 Long term (current) use of aspirin
CPT/HCPCS: 58558; 00952; 85027; 86850; 86900; 86901; 88305; 88341; 88342; A4216; J2405

== ENCOUNTER → 2024-08-10 | Outpatient (CLI) | payer OTHER, SELFPAY ==
[2024-08-10 12:53] LABS: Anion Gap 6 (5-15); BUN 15 mg/dL (7-18); BUN/Creat Ratio 23.7 RATIO (10-20); Calcium,Total 9.3 mg/dL (8.5-10.1); Chloride 102 mmol/L (98-107); Creatinine, Serum 0.63 mg/dL (0.55-1.02); EST Glomerular Filtration Rate 102 mL/min (>60); Est Glom Filt Rate - Afr Amer 123 mL/min (>60); Glucose 104 mg/dL (74-106); Potassium 4.4 mmol/L (3.5-5.1); Sodium Level 138 mmol/L (136-145)
== END | disposition home or self-care (01) ==
LOC: BIMLAB 09:28
PROVIDERS: PCP Internal Medicine; Visit Provider Internal Medicine
DX: I10 Essential (primary) hypertension (principal)
CPT/HCPCS: 36415; 80048

== ENCOUNTER → 2024-12-30 | Outpatient (CLI) | payer OTHER, SELFPAY ==
[2024-12-30 14:33] LABS: ALB/GLOB Ratio 1.7 RATIO (0.9-2.4); AST(SGOT) 17 U/L (<=31); Alanine Aminotransfer ALT/SGPT 16 U/L (<=34); Albumin, Serum 4.5 g/dL (3.5-5.0); Alkaline Phosphatase 72 U/L (35-104); Anion Gap 10 (5-15); BUN 15 mg/dL (4-19); BUN/Creat Ratio 21.6 RATIO (10-20); Calcium,Total 10.3 mg/dL (7.6-11.0); Carbon Dioxide 29.2 mmol/L (21.0-32.0); Chloride 99 mmol/L (98-108); Cholesterol 242 mg/dL (<=200); Creatinine, Serum 0.68 mg/dL (0.70-1.20); EST Glomerular Filtration Rate 100 (>60); Globulin 2.6 g/dL (2.2-4.2); Glucose 108 mg/dL (70-99); High Density Lipoprotein 57 mg/dL; Low Density Lipoprotein Calc. 159 mg/dL; Potassium 4.7 mmol/L (3.3-5.1); Protein, Total 7.1 g/dL (5.9-8.4); Sodium Level 139 mmol/L (133-145); Total Bilirubin 0.53 mg/dL (0.00-1.30); Triglycerides 132 mg/dL; Very Low Density Lipoprotein 26 mg/dL (5-40); cholesterol:hdl ratio screen 4.28
== END | disposition home or self-care (01) ==
LOC: BIMLAB 08:46
PROVIDERS: PCP Internal Medicine; Referring Provider Internal Medicine; Visit Provider Internal Medicine
DX: I10 Essential (primary) hypertension (principal); E78.5 Hyperlipidemia, unspecified
CPT/HCPCS: 36415; 80053; 80061

== ENCOUNTER 2025-04-16 19:27 | Emergency (ER) | payer OTHER, SELFPAY ==
[2025-04-16] VITALS (7 sets, daily range): BP systolic 112–151; BP diastolic 63–89; PULSE 71–91; RESP 12–18; TEMP 36.3–36.4; O2SAT 93–98; BMI 22.9
--- NOTE | 2025-04-16 20:10 | ED.VIS.CHEST ---
HPI History of Present Illness Chief Complaint: Chest Pain Informant: patient Onset/Context/Timing Onset: Month(s) (1) Activity at onset: sudden and rest (Sitting and driving) Timing: Intermittent and Lasts (Few hours) Quality: Positive for Pressure and Tightness Location: Substernal Worsened By: Nothing Relieved By: Antacids and NSAIDS (Aspirin) Associated Symptoms: Positive for Diaphoresis, Dyspnea and Lightheadedness; Negative for Nausea, Vomiting, Cough, Fever, Acid Reflux or Palpitations Narrative Narrative: Patient presents with chest pain that has been intermittent over the past month. Patient states it became worse today. Patient states it came on while she was driving today. Patient states it lasted a few hours. Patient states she took some baby aspirin and antacids which seemed to help somewhat. Patient states it came back a few hours later. Patient describes it as pressure and tightness. Patient states it is over the substernal area. Patient states nothing makes it worse. Patient admits to some shortness of breath and mild diaphoresis. Patient also admits to some lightheadedness and dizziness. CVD Risk Factors: Positive for Hypertension and Family History 1' </=55; Negative for Diabetes, Hypercholesterolemia or Smoking PE Risk Factors: Negative for Recent Travel/Surgery, Recent Immobilization, Prior DVT or PE, Cancer or OCP + Smoking + >/=35 PFSH PFSH Medical History Back pain Head ache Former smoker History of tobacco use Encounter for screening for malignant neoplasm of lung Preventative health care Muscular abdominal pain in right flank Post-menopausal Alcohol use Arthritis History of diverticulitis Emphysema, unspecified Shortness of breath on exertion History of stress test Hypertension Health care maintenance Change in skin mole Blood in stool Abdominal pain Colon cancer screening Hyperlipidemia Flu vaccine need Elevated blood sugar Right shoulder pain Tobacco use disorder, continuous Encounter for screening for malignant neoplasm of lung in current smoker with 30 pack year history or greater Breast cancer screening Right thigh pain Right elbow pain High cholesterol Anxiety Home Medications Medication Instructions Recorded Last Taken Type aspirin 81 mg tablet,delayed 81 mg PO DAILY 04/03/22 08/03/24 History release (Erin Low Dose Aspirin) lorazepam 1 mg tablet (Ativan) 0.5 mg (1/2 x 1 mg) PO DAILY PRN 04/03/22 Unknown Rx PRN Anxiety #15 tabs cholecalciferol (vitamin D3) 50 25 mcg PO DAILY 01/22/23 08/03/24 History mcg (2,000 unit) capsule mecobalamin (vitamin B12) 1,000 5,000 mcg PO DAILY 03/15/23 08/03/24 History mcg chewable tablet ascorbic acid (vitamin C) 500 mg 500 mg PO DAILY 07/29/24 08/03/24 History tablet (C-500) calcium 600 mg capsule 600 mg PO DAILY 07/29/24 08/03/24 History azithromycin 250 mg tablet 250 mg PO .COMPLEX #12 tabs 01/04/25 Unknown Rx hydrochlorothiazide 25 mg tablet 25 mg PO QAM #90 tabs 02/23/25 Unknown Rx Allergy/AdvReac Type Severity Reaction Status Date / Time No Known Allergies Allergy Verified 01/04/25 08:17 Family History Mother Arthritis Myocardial infarction Heart disease Sister Breast cancer Father Diabetes Lung cancer Brother Lung cancer Surgical History H/O dilation and curettage Hx of colonoscopy Hx of wisdom tooth extraction Social History number of children: 2 sexually active: Yes Smoking Status: Former smoker Tobacco: How many years used: 30 Electronic Cigarette Use: not used how long ago did patient quit smoking: Quit 01/2024 second hand exposure: Yes alcohol intake: current alcohol intake frequency: a few times a month Alcohol type: wine substance use type: does not use seatbelt use: always do you feel safe at home: Yes ROS ROS ED Constitutional Constitutional ED: Denies chills or fever(s) Eyes Eyes: Denies blurry vision or change in vision ENT ENT ED: Denies rhinorrhea or sore throat Cardiovascular Cardiovascular: Reports as per HPI and chest pain; Denies palpitations Respiratory/Chest Respiratory/Chest: Reports dyspnea; Denies cough Gastrointestinal Gastrointestinal: Denies nausea or vomiting Genitourinary Genitourinary ED: Reports urinary frequency; Denies dysuria or hematuria Musculoskeletal Musculoskeletal: Reports back pain; Denies neck pain Integumentary Denies abscess or rash Neurologic Neurologic: Reports headache(s); Denies weakness Allergic/Immunologic Allergic/Immunologic ED: Denies mouth swelling or urticaria EXAM Physical Exam Const Vital Signs: 04/16/25 19:27 04/16/25 20:27 04/16/25 20:51 Temperature 97.6 F L Temperature Source Oral Pulse Rate 91 77 74 Respiratory Rate 18 12 Respiratory Effort Blood Pressure 133/86 H 112/85 H 129/74 H Blood Pressure Mean 101 94 Pulse Ox 98 93 Oxygen Delivery Method Room Air Room Air 04/16/25 20:54 04/16/25 20:56 04/16/25 21:00 Temperature Temperature Source Pulse Rate 80 Respiratory Rate 18 Respiratory Effort Normal Non-Labored Blood Pressure 151/89 H Blood Pressure Mean 109 Pulse Ox 93 94 Oxygen Delivery Method Room Air Room Air 04/16/25 22:00 04/16/25 23:00 Temperature 97.4 F L Temperature Source Pulse Rate 73 71 Respiratory Rate 14 15 Respiratory Effort Blood Pressure 123/74 H 123/63 H Blood Pressure Mean 90 83 Pulse Ox 95 94 Oxygen Delivery Method Room Air Positive well nourished and well developed Constitutional Narrative: BMI is 22.9. General Appearance ED: well developed and NAD HEENT Reports moist mucous membranes normocephalic and atraumatic Neck supple and no JVD Chest Wall palpation of chest normal Resp normal respiratory effort and clear to auscultation bilaterally Cardio regular rate and regular rhythm GI soft to palpation, non-tender and non-distended Extremity normal to inspection General Extremety ED: Negative for edema or tenderness General Extremity: Negative for edema Neuro oriented x3, CN's II-XII intact bilaterally and no sensory deficits noted Sensorium / Orientation: awake and alert Motor Exam: strength 5/5 throughout Psych mental status grossly normal Heart Score History: Slightly/Non-Suspicious ECG: Nonspecific Repolarization Age: >45 - <65 years Risk Factors: 1 or 2 Risk Factors Troponin: </= Normal Limit Score: 3 MDM MDM MDM Narrative Medical decision making narrative: Differential diagnosis includes cardiac dysrhythmia, cardiac ischemia, pneumonia, bronchitis, gastroesophageal reflux disease, and anxiety. EKG will be obtained to assess for cardiac dysrhythmia and cardiac ischemia. Chest x-ray will be obtained to assess for pneumonia and bronchitis. CBC will be obtained to assess for leukocytosis and anemia. Basic metabolic profile will be obtained to assess for electrolyte abnormality and renal function. High-sensitivity troponin will be obtained to assess for cardiac ischemia. 2-hour repeat high-sensitivity troponin will be obtained to assess for ongoing cardiac ischemia. History & Record Review Additional record(s) reviewed:: Prior outpatient record, Prior ED visit and Prior labs Lab Data Attestation: I reviewed the patient's lab results. Lab results narrative: CBC was reviewed and was within normal limits. Basic metabolic profile was reviewed and was within normal limits. High-sensitivity troponin was reviewed and was less than 6. 2-hour repeat high-sensitivity troponin was reviewed and was less than 6. Labs: Laboratory Results - last 24 hr 04/16/25 04/16/25 20:10 22:25 WBC 7.9 RBC 4.97 Hgb 14.2 Hct 39.0 MCV 78.5 L MCH 28.6 MCHC 36.4 H RDW Std Deviation 43.7 RDW Coeff of Manuel 15.5 H Plt Count 218 MPV 11.9 Immature Gran % (Auto) 0.300 Neut % (Auto) 55.3 Lymph % (Auto) 31.1 Yell % (Auto) 8.6 Eos % (Auto) 4.2 Baso % (Auto) 0.5 Absolute Neuts (auto) 4.4 Absolute Lymphs (auto) 2.47 Nucleated RBC % 0 Sodium 137 Potassium 3.7 Chloride 98 Carbon Dioxide 26.7 Anion Gap 12 BUN 18 Creatinine 0.70 Estim Creat Clear Calc 74.72 Est GFR (MDRD) Non-Af 100 BUN/Creatinine Ratio 25.5 H Glucose 106 H Calcium 10.0 Troponin T High Sens < 6 Troponin T Hi Sens 2 Hr < 6 Radiography Chest X-Ray - ED: 1 View, 2 View, Read by ED Physician, Read by Radiologist and No Acute Disease Diagnostic Testing: Clinical Impression(s) from Imaging Studies Chest X-Ray 04/16/25 20:40 IMPRESSION: No acute cardiopulmonary disease. Reading Location: [facility] Portable 1 view chest x-ray was obtained. On my independent interpretation, lung arriaza are clear. There is normal cardiac silhouette. Bony thorax is normal. There is no acute process noted. Radiologist also interpreted the x-ray and agrees. EKG Initial EKG: Attestation: I personally reviewed and interpreted this EKG as follows: Interpretation: Sinus Rhythm (74) and Inverted T-Waves (V1 through V4) Comments: EKG was obtained. On my independent interpretation, it showed a normal sinus rhythm with a rate of 74. NE interval, QRS interval, and QTc intervals were all normal. [place] was normal. There is nonspecific T wave inversion in leads V1 through V4 Prior EKG tracings: available for review Prior: Unchanged (11/26/2020) Treatment and Re-Evaluation :: Patient was given aspirin and sublingual nitroglycerin. Patient was feeling better on reevaluation. Patient was advised of her findings. Patient has a HEART score of 3. Patient was advised that this is low risk for acute cardiac event. Patient was instructed to follow-up with her primary care physician in 5 to 7 days. Patient was instructed to return if worse in any way. Patient understood and was agreeable with the plan. All questions were answered. Discharge Plan Triage Chief Complaint: Chest Pain ED Provider: Angel Angel Dx/Rx/DC Orders Clinical Impression: Chest pain, Hypertension Instructions: ED Chest Pain, Uncertain Cause Prescriptions: No Action aspirin [Erin Low Dose Aspirin] 81 mg tablet,delayed release (DR/EC) 81 mg PO DAILY lorazepam [Ativan] 1 mg tablet 0.5 mg PO DAILY PRN PRN (Reason: Anxiety) Qty: 15 0RF cholecalciferol (vitamin D3) 50 mcg (2,000 unit) capsule 25 mcg PO DAILY mecobalamin (vitamin B12) 1,000 mcg tablet,chewable 5,000 mcg PO DAILY azithromycin 250 mg tablet 250 mg PO .COMPLEX Qty: 12 0RF Rx Instructions: 2 tablets (500 mg) on day 1, then 1 tablet daily on days 2 through 11 ascorbic acid (vitamin C) [C-500] 500 mg tablet 500 mg PO DAILY calcium 600 mg capsule 600 mg PO DAILY hydrochlorothiazide 25 mg tablet 25 mg PO QAM Qty: 90 1RF Primary Care Provider: Luz Marina Martini Referrals: Luz Marina Martini MD [Primary Care Provider] - 5-7 Days Print Language: Guyanese Disposition Disposition: Home, Self Care Discharge Date/Time: 04/16/25 23:10
--- NOTE | 2025-04-16 20:28 | EKG12_ITS ---
Test Reason : CP Blood Pressure : */* mmHG Vent. Rate : 74 BPM Atrial Rate : 74 BPM P-R Int : 156 ms QRS Dur : 76 ms QT Int : 398 ms P-R-T Axes : 53 63 75 degrees QTcB Int : 441 ms Normal sinus rhythm ST & T wave abnormality, consider anterior ischemia Abnormal ECG Confirmed by LESTER PÉREZ, KURTIS ([id number]), material expeditor SHARON MONCADA ([id number]) on 04/19/2025 9:01:01 AM Referred By: Confirmed By: KURTIS BATISTA MD
--- OUTSIDE RECORDS SUMMARY | 2025-04-16 20:39 | XMS RPT_ITS | CCD ---
Author Organization [facility] Care Team Providers Care Fleet Salesperson Name Role Phone Noelle Bowden Unavailable Jose Irwinlas Arturo Unavailable [phone] Chiquita Ger Unavailable Physical Therapy, [facility] Unavailable [phone] Carmen Haque Unavailable Unavailable Nani Calvin Unavailable Unavailable Unavailable Unavailable Renee Barba Unavailable Unavailable Ophelia Mayo Unavailable Unavailable Dr. Naomie Martini Primary Care Provider [phone] Dr. Naomie Martini Attending Provider [phone] Dr. Naomie Martini Referring Provider [phone] María Elena INTERNET SALES CONSULTANT, INTERNET SALES CONSULTANT-C Deedee Attending Provider [phone] Dr. Naomie Martini Primary Care Provider [phone] Dr. aNomie Martini Attending Provider [phone] Dr. Naomie Martini Referring Provider [phone] Dr. Naomie Martini Primary Care Provider [phone] Dr. Naomie Martini Attending Provider [phone] Dr. Naomie Martini Referring Provider [phone] María Elena INTERNET SALES CONSULTANT, INTERNET SALES CONSULTANT-C Deedee Attending Provider [phone] Dr. Naomie Martini Primary Care Provider [phone] María Elena INTERNET SALES CONSULTANT, INTERNET SALES CONSULTANT-C Deedee Referring Provider [phone] Dr. Naomie Martini Attending Provider [phone] Dr. Naomie Martini Referring Provider Dr. Marly Dennis Attending Provider Dr. Marly Dennis Other Provider MEGHNA Ho Attending Provider NAOMIE MARTINI MD Primary Care [phone] Unavailable Primary Care Provider UnavailNaomie De La Rosa MD B Primary Care Provider [phone] PRINCESS FLEMING Attending Unavailable FRANCISCA RIVERA Attending Unavailable JUDD SANDOVAL Referring Unavailable JUDD SANDOVAL Attending Unavailable OLEGHE, EFEWONGBE B Primary Care Unavailable FRANCISCA RIVERA Attending Unavailable OLEGHE, EFEWONGBE B Primary Care Unavailable FRANCISCA RIVERA Referring Unavailable FÉLIX ROMAN MD Attending Unavailable JAYNE MARTINI MDONGBE B Primary Care UnavailFRANCISCA Delarosa MD Attending Unavailable CHRISTOPHER MARTINI MDBE B Primary Care UnavailFRANCISCA Delarosa MD Attending Unavailable CHRISTOPHER MARTINI MDBE B Primary Care UnavailDr. Naomie Cheung MD Primary Care Provider Dr. Naomie Martini MD Attending Provider [phone] Dr. Naomie Martini MD Referring Provider [phone]) Ignacio Diego Attending Provider Deedee Ring NP Referring Unavailable Deedee Ring NP Attending Unavailable Oleghe, Efewongbe Primary Care Unavailable Oleghe, Efewongbe Primary Care Unavailable Oleghe, Efewongbe Referring Unavailable Elise Marin Attending Unavailable Katie Eid Referring Unavailable Katie Eid Attending Unavailable Oleghe, Efewongbe Primary Care Unavailable Oleghe, Efewongbe Referring Unavailable Oleghe, Efewongbe Primary Care Unavailable Nithin Ho Attending Unavailable Oleghe, Efewongbe Primary Care Unavailable Oleghe, Efewongbe Referring Unavailable Lyn Slaughter Attending Unavailabl e Lyn Slaughter Referring Unavailabl e Vande Lyn Merlos Attending Unavailabl e Oleghe, Efewongbe Primary Care Unavailable Lyn Slaughter Consulting Unavailabl e Oleghe, Efewongbe Primary Care Unavailable Oleghe, Efewongbe Referring Unavailable Ignacio Diego Attending Unavailable Oleghe, Efewongbe Attending Unavailable Oleghe, Efewongbe Primary Care Unavailable Oleghe, Efewongbe Referring Unavailable Lyn Slaughter Attending Unavailabl e Oleghe, Efewongbe Primary Care Unavailable Franciscoe Lyn Merlos Referring Unavailabl e Oleghe, Efewongbe Primary Care Unavailable Oleghe, Efewongbe Attending Unavailable Oleghe, Efewongbe Attending Unavailable Oleghe, Efewongbe Primary Care Unavailable Oleghe, Efewongbe Referring Unavailable María Elena INTERNET SALES CONSULTANT, Deedee Attending Unavailable Oleghe, Efewongbe Primary Care Unavailable María Elena INTERNET SALES CONSULTANT, Deedee Referring Unavailable Lyn Slaughter Referring Unavailabl e Vande VelLyn hatfield Attending Unavailabl e Oleghe, Efewongbe Primary Care Unavailable Oleghe, Efewongbe Attending Unavailable Oleghe, Efewongbe Referring Unavailable Oleghe, Efewongbe Primary Care Unavailable Oleghe, Efewongbe Attending Unavailable Oleghe, Efewongbe Primary Care Unavailable Katie Eid Attending Unavailable Oleghe, Efewongbe Referring Unavailable Oleghe, Efewongbe Primary Care Unavailable Lyn Slaughter Attending Unavailabl e Oleghe, Efewongbe Referring Unavailable Oleghe, Efewongbe Primary Care Unavailable Oleghe, Efewongbe Primary Care Unavailable Oleghe, Efewongbe Referring Unavailable Oleghe, Efewongbe Attending Unavailable Oleghe, Efewongbe Referring Unavailable Oleghe, Efewongbe Primary Care Unavailable Ignacio Diego Attending Unavailable Oleghe, Efewongbe Referring Unavailable Oleghe, Efewongbe Attending Unavailable Oleghe, Efewongbe Primary Care Unavailable Allergies Allergy Classification Reported Allergen(s) Allergy Type [...] every six hours as needed for pain Hancock 325- 5 mg oral tablet Dose = [...] Inactive Comments: sixty Comment on above: sixty ascorbic acid 500 mg oral tablet (9 sources) Vitamin C Start: 07-29-2024 take 1 tablet by mouth once daily Ascorbic Acid (Vitamin C) (C-500) 500 mg tablet Active 500 mg PO DAILY July 29, 2024 1:00am Start: 12-19-2021 End: 07-17-2022 take 1 capsule by mouth once daily Ascorbic Acid (Vitamin C) 500 mg capsule Discontinued 500 mg PO DAILY December 19, 2021 12:00am July 17, 2022 8:31am aspirin 81 mg delayed release oral tablet (20 sources) Platelet Aggregation Inhibitor, Nonsteroidal Anti-inflammatory Drug Start: 04-03-2022 Aspirin (Erin Lo w Dose Aspirin) 81 mg tablet,delayed release (DR/EC) Active 81 mg PO DAILY April 03, 2022 12:00am Start: 01-01-2021 aspirin 81 mg oral tablet, chewable Dose : 81 mg = 1 tab(s), Oral, Daily, # 30 tab(s), 0 Refill(s) Start Date: 01/01/21 Status: Ordered Start: 09-28-2017 End: 12-27-2020 Aspirin (Adult Low Dose Aspi rin) 81 mg tablet,delayed release (DR/EC) Discontinued 81 mg PO daily September 28, 2017 1:00am December 27, 2020 9:09am aspirin 81 mg ca p Take by mouth. Active azithromycin 250 mg oral tablet (2 sources) Macrolide Antimicrobial Start: 01-04-2025 Azithromycin 250 mg tablet Active 250 mg PO .COMPLEX January 04, 2025 12:00am 2 tablets (500 mg) on day 1, then 1 tablet daily on days 2 through 11 Start: 06-14-2023 End: 02-06-2024 take 2-5 tablets by mouth once daily Azithromycin 250 mg tablet Discontinued 0 PO .COMPLEX June 14, 2023 12:00am February 06, 2024 2:03pm take 500 mg today (day 1), then 250 mg for 4 days (days 2-5) PO Calcium (1 source) Phosphate Binder, Calcium Start: 07-29-2024 take 1 capsule by mouth once daily Calcium 600 mg capsule Active 600 mg PO DAILY July 29, 2024 1:00am cholecalciferol 0.05 mg oral capsule (20 sources) Vitamin D Start: 01-22-2023 take 1 capsule by mouth once daily Cholecalciferol (Vitamin D3) 50 mcg (2,000 unit) capsule Active 25 ug PO DAILY January 22, 2023 12:00am Start: 01-22-2023 take 50 ug by mouth once daily Cholecalciferol (Vitamin D3) Active 50 MCG PO DAILY January 22, 2023 12:00am Start: 12-19-2021 End: 07-17-2022 take 1 capsule by mouth once daily Cholecalciferol (Vitamin D3) 50 mcg (2,000 unit) capsule Discontinued 50 ug PO DAILY December 19, 2021 12:00am July 17, 2022 8:31am Start: 11-07-2020 End: 12-27-2020 take 1 capsule by mouth once daily Cholecalciferol (Vitamin D3) 25 mcg (1,000 unit) capsule Discontinued 25 ug PO DAILY November 07, 2020 1:00am December 27, 2020 9:09am cholecalciferol, vitamin D3, (VITAMIN D3 ORAL) (7 [...] Take by mouth once daily. 0 Active hydroCHLOROthiazide 25 mg oral tablet (20 sources) Thiazide Diuretic Start: 12-27-2020 End: 11-23-2024 take 1 tablet by mouth once daily in the morning Hydrochlorothiazide 25 mg tablet Active 25 mg PO EVERY MORNING November 23, 2024 2:16pm Start: 11-26-2020 End: 12-27-2020 Hydrochlorothiazide 25 MG ta blet Discontinued 12.5 mg PO EVERY MORNING November 26, 2020 2:00pm December 27, 2020 9:45am Start: 11-26-2020 End: 12-27-2020 take 12.5 mg by mouth once daily in the morning Hydrochlorothiazide Discontinued 12.5 MG PO EVERY MORNING November 26, 2020 2:00pm December 27, 2020 9:45am Start: 11-21-2020 End: 11-26-2020 take 1 tablet by mouth once daily in the morning Hydrochlorothiazide 25 mg tablet Discontinued 25 mg PO EVERY MORNING November 21, 2020 1:00am November 26, 2020 2:00pm mecobalamin 1 mg chewable tablet (9 sources) Start: 03-15-2023 take 5 tablets by mouth once daily Mecobalamin (Vitamin B12) 1,000 mcg tablet,chewable Active 5000 ug PO DAILY March 15, 2023 8:32am Start: 03-15-2023 take 5000 ug by mout h once daily Mecobalamin (Vitamin B12) Active 5000 MCG PO DAILY March 15, 2023 8:32am Start: 01-22-2023 End: 03-15-2023 take 1 tablet by mouth once daily Mecobalamin (Vitamin B12) 1,000 mcg tablet,chewable Discontinued 1000 ug PO DAILY January 22, 2023 12:00am March 15, 2023 8:32am methylPREDNISolone 4 mg oral tablet (1 source) Corticosteroid Start: 02-28-2024 End: 03-05-2024 Medrol 4 mg oral tablet [id number] tab(s), Oral, Daily, 24mg day 1, 20mg day 2, 16mg day 3, 12 mg day 4, 8mg day 5, 4mg day 6, X 6 day(s), # 21 tab(s), 0 Refill(s), 03/05/24 10:58:00 PM EDT Start Date: 02/28/24 Stop Date: 03/05/24 Status: Ordered Zinc (8 sources) Start: 12-19-2021 take 50 mg by mouth once daily Zinc Active 50 MG PO DAILY December 19, 2021 2:29pm Start: 12-19-2021 End: 07-17-2022 take 1 tablet by mouth once daily Zinc 50 mg tablet Discontinued 50 mg PO DAILY December 19, 2021 12:00am July 17, 2022 8:31am Start: 12-19-2021 End: 07-17-2022 take 50 mg by mouth once daily Zinc Discontinued 50 MG PO DAILY December 19, 2021 12:00am July 17, 2022 8:31am Start: 12-19-2021 take 50 mg by mouth once daily Zinc Active 50 MG PO DAILY December 19, 2021 12:00am Completed/Discontinued Medications Medication Drug Class(es) Dates Sig [...] Quantity: 35 {QS} Refills: 0 Ordered: 28-Dec-2015 Noé CALI Laura Start : 28-Dec-2015 End : 04-Jan-2016 Inactive [...] Inactive Comment on above: Take with Food atorvastatin 40 mg oral tablet (18 sources) HMG-CoA Reductase Inhibitor Start: 11-28-19 End: 07-14-20 take 1 tablet by mouth at bedtime Atorvastatin 40 mg tablet Discontinued 40 mg PO AT BEDTIME 90 December 27, 2020 9:46am July 14, 2021 8:16am On Hold: Order Changed baclofen 10 mg oral tablet (8 sources) gamma-Aminobutyric Acid-ergic Agonist Start: 07-14-20 End: 10-25-19 take 1 tablet by mouth twice daily as needed for muscle spasms Baclofen 10 mg tablet Discontinued 10 mg PO TWICE A DAY as needed for muscle spasm 60 July 14, 2021 12:00am October 25, 2021 10:03am benzonatate 100 mg oral capsule (4 sources) Non-narcotic Antitussive Start: 12-28-19 16 End: 02-09-20 take 1 capsule by mouth three times [...] Quantity: 15 {Gram} Refills: 0 Ordered: 27-Oct-2020 Dennise MARTINEZ Noellegonzales Bowden DO Noelle Start : 27-Oct-2020 Active Start: 12-30-2013 End: 07-01-2015 DIPROLENE AF, 0.05% (Externa l Cream) apply sparingly to rash Cream Cream bid for 0 days Quantity: 15 {Gram} Refills: 0 Ordered: 01-Jul-2015 Long Dede RAMOS Start : 30-Dec-2013 End : 01-Jul-2015 Inactive [...] Start : 09-Feb-2016 End : 18-Jun-2016 Inactive busPIRone hydrochloride 5 mg oral tablet (20 sources) Start: 10-19-2022 End: 03-15-2023 take 1 tablet by mouth once Buspirone 5 mg tablet Discontinued 5 mg PO ONCE October 19, 2022 9:32am March 15, 2023 8:32am Start: 05-26-2021 End: 10-19-2022 take 1 tablet by mouth twice daily Buspirone 5 mg tablet Discontinued 5 mg PO TWICE A DAY 180 90 September 19, 2022 5:03pm October 19, 2022 9:32am calcium ascorbate 500 mg oral tablet (8 sources) Start: 11-07-2020 End: 12-27-2020 take 1 tablet by mouth once daily Ascorbate Calcium (Vitamin C) 500 mg tablet Discontinued 500 mg PO DAILY November 07, 2020 1:00am December 27, 2020 9:09am ciprofloxacin 500 mg oral tablet (4 sources) [...] Quantity: 7 {Tablet} Refills: 0 Ordered: 19-Apr-2011 Mei Umanzor CNP Start : 19-Apr-2011 End : 26-Apr-2011 Inactive cyclobenzaprine hydrochloride 10 mg oral tablet (6 sources) Muscle Relaxant Start: 04-24-2023 End: 02-06-2024 take 1 tablet by mouth three times daily as needed for muscle spasms Cyclobenzaprine 10 mg tablet Discontinued 10 mg PO THREE TIMES A DAY as needed for muscle spasm 90 April 24, 2023 12:00am February 06, 2024 2:03pm Start: 11-24-2007 End: 12-17-2007 take 1 tablet [...] Refills: 0 Ordered: 27-Oct-2020 Noelle Bowden DO, DO Noelle Start : 27-Oct-2020 Active escitalopram 5 mg oral tablet (10 sources) Serotonin Reuptake Inhibitor Start: 12-27-2020 End: 05-26-2021 take 1 tablet by mouth once daily Escitalopram Oxalate 5 mg tablet Discontinued 5 mg PO DAILY December 27, 2020 12:00am May 26, 2021 8:53am Flucelvax Quad (flu vac qs (6 ms up) CD) 60 mcg (15 mcg x (1 source) Start: 07-14-2021 End: 07-14-2021 inject 15 ug by intramuscular injection once Flucelvax Quad (flu vac qs (6 ms up) CD) 60 mcg (15 mcg x Discontinued 60 MCG IM ONCE 0.5 July 14, 2021 8:08am July 14, 2021 8:53am fluconazole 150 mg oral tablet (4 sources) [...] 30 {Capsule} Refills: 0 Ordered: 09-Feb-2016 Carmen aHque RN Start : 28-Dec-2015 End : 09-Feb-2016 Inactive ibuprofen 800 mg oral tablet (2 sources) Nonsteroidal Anti-inflammatory Drug Start: 04-22-2023 End: 08-18-2024 take 1 tablet by mouth three times daily as needed for pain Ibuprofen 800 mg tablet Discontinued 800 mg PO THREE TIMES A DAY as needed for pain April 22, 2023 12:00am August 18, 2024 10:12am inulin 200 mg / lactobacillus rhamnosus gg [id number] unt oral capsule (4 sources) Start: 04-19-2011 [...] : 22-Aug-2012 End : 01-Sep-2012 Inactive LORazepam 1 mg oral tablet (20 sources) Benzodiazepine Start: 06-13-2018 take 1 tablet by mouth once daily as needed Ativan 0.5 MG Oral Tablet 1 (one) Tablet daily, as needed for 0 days Quantity: 20 {Tablet} Refills: 0 Ordered: 13-Jun-2018 Noelle Bowden DO, DO, Kathleen Start : 13-Jun-2018 Active Comments: Medication taken as needed. [id number] Start: 09-28-2017 End: 04-03-2022 take 0.5 mg by mouth once daily as needed for anxiety Lorazepam (Ativan) 1 mg tablet Discontinued 0.5 mg PO DAILY NEEDED as needed for Anxiety May 26, 2021 9:21am April 03, 2022 8:35am Comment on above: Medication taken as needed. [id number] meloxicam 15 mg oral tablet (8 sources) Nonsteroidal Anti-inflammatory Drug Start: 07-14-20 End: 10-25-19 take 1 tablet by mouth once daily Meloxicam 15 mg tablet Discontinued 15 mg PO DAILY July 14, 2021 12:00am October 25, 2021 10:03am metaxalone 800 mg oral tablet (4 sources) Start: 06-25-20 12 End: 08-22-20 12 take 1 tablet by mouth three times daily as needed METAXALONE, 800MG (Oral Tablet) 1 Tablet tid prn for 0 days Quantity: 30 {Tablet} Refills: 0 Ordered: 22-Aug-2012 Carmen Haque RN Start : 25-Jun-2012 End : 22-Aug-2012 Inactive mometasone furoate 0.05 mg/actuat metered dose nasal spray (4 sources) Corticosteroid Start: 10-03-19 10 NASONEX, 50MCG/ACT (Nasal Suspension) 2 (two) Suspension qd for 0 days Quantity: 1 {Suspension} Refills: 1 Ordered: 16-Nov-2009 Carmen Haque RN Start : 03-Oct-2009 Inactive Multivitamin preparation (5 sources) Start: 07-17-20 End: 01-23-20 take 1 tablet by mouth once daily Multivitamin Discontinued 1 TABLET PO DAILY July 17, 2022 12:00am January 22, 2023 2:27pm Start: 07-17-2022 take 1 tablet by alfredo th once daily Multivitamin Active 1 TABLET PO DAILY July 17, 2022 12:00am Multivitamin tablet (1 source) Start: 07-17-2022 End: 01-22-2023 Multivitamin tablet Discontinued 1 {tbl} PO DAILY July 17, 2022 12:00am January 22, 2023 2:27pm naproxen 500 mg oral tablet (8 sources) [...] {Tablet} Refills: 0 Ordered: 17-Mar-2007 Noelle Bowden DO Dennise DO, Noelle Start : 17-Mar-2007 End : 24-Nov-2007 Inactive 24 hr nicotine 0.583 mg/hr transdermal system (1 source) Cholinergic Nicotinic Agonist Start: 02-06-2024 End: 02-25-2024 apply 1 dose transdermal route every twenty-four hours Nicotine 14 mg/24 hr patch 24 hour Discontinued 1 NMA TD DAILY February 06, 2024 12:00am February 25, 2024 12:58pm nitrofurantoin, macrocrystals 25 mg / nitrofurantoin, monohydrate 75 mg oral capsule (12 sources) Nitrofuran Antibacterial Start: 09-28-2017 End: 10-03-2017 take 1 capsule by mouth every twelve hours at mealtime Nitrofurantoin Monohyd/M-Cryst 100 mg capsule Discontinued 1 NMA PO Q12H 10 September 28, 2017 1:00am October 02, 2017 1:00am October 03, 2017 1:06am administer with a meal/food; swallow whole; do not open, crush, dissolve , or chew Start: 06-19-2017 End: 06-05-2018 take 1 capsule by mouth twice daily Macrobid 100 MG Oral Capsule 1 (one) Capsule bid for 0 days Quantity: 20 {Capsule} Refills: 0 Ordered: 05-Jun-2018 Renee Barba CMA Start : 19-Jun-2017 End : 05-Jun-2018 Inactive olopatadine 1 mg/ml ophthalmic solution (4 sources) Histamine-1 Receptor Inhibitor Start: 10-03-2009 PATANOL, 0.1% (Ophthalmic Solution) 1 (one) gtt Solution bid each eye for 0 days Quantity: 5 {Milliliter} Refills: 1 Ordered: 16-Nov-2009 Carmen Haque RN Start : 03-Oct-2009 Inactive phenazopyridine hydrochloride 100 mg oral tablet (8 sources) Start: 09-28-2017 End: 09-29-2017 take 1 tablet by mouth three times daily at mealtime for pain Phenazopyridine (Pyridium) 100 mg tablet Discontinued 100 mg PO THREE TIMES A DAY as needed for pain 7 0 September 28, 2017 1:00am September 28, 2017 1:00am September 29, 2017 1:07am administer with a full glass of water after each meal predniSONE 20 mg oral tablet (4 sources) Start: 07-24-2012 End: 07-29-2012 take 1 tablet by mouth twice daily PREDNISONE, 20MG (Oral Tablet) 1 Tablet bid wiht food for 5 days Quantity: 10 {Tablet} Refills: 0 Ordered: 22-Aug-2012 Dennise MARTINEZ Noelle Dennise MARTINEZ Noelle Start : 24-Jul-2012 End : 29-Jul-2012 Inactive saccharomyces boulardii 250 mg oral capsule (1 source) Start: 06-17-2024 End: 07-29-2024 take 1 capsule by mouth twice daily Saccharomyces Boulardii (Daily Probiotic (S. Boulardii)) 250 mg capsule Discontinued 250 mg PO TWICE A DAY June 17, 2024 12:00am July 29, 2024 4:00pm tobramycin 3 mg/ml ophthalmic solution (1 source) Aminoglycoside Antibacterial Start: 09-02-2024 End: 12-23-2024 Tobramycin 0.3 % drops Discontinued 1 NMA OPHTHALMIC Q2H 5 September 02, 2024 1:00am December 23, 2024 8:45am to affected eye while awake first 24 hours, then 3x/day on days 2-5 vitamin b12 0.5 mg oral tablet (8 sources) Vitamin B12 Start: 11-07-2020 End: 12-27-2020 take 1 tablet by mouth once daily Cyanocobalamin (Vitamin B-12) (Vitamin B-12) 500 mcg tablet Discontinued 500 ug PO DAILY November 07, 2020 1:00am December 27, 2020 9:09am Problems Active Problems Problem Classification Problem Date Documented Da te Episodic/Chronic Abdominal pain (20 sources) Unspecified symptom associated with female genital organs; Translations: [Pain in pelvis] Onset: 08-28-2011 06-08-2019 Episodic Allergic reactions (16 sources) Dermatitis; Translations: [Eczema] 06-08-2019 Episodic Anxiety disorders (20 sources) Anxiety; Translations: [Generalized anxiety disorder] Onset: 08-10-2024 06-08-2019 Chronic Diabetes mellitus without complication (15 sources) Impaired fasting glycaemia; Translations: [Hyperglycemia] 06-08-2019 Episodic Disorders of lipid metabolism (17 sources) Hypercholesterolemia; Translations: [Pure hypercholesterolemia, unspecified] 07-29-2019 Chronic Essential hypertension (18 sources) Hypertensive disorder; Translations: [Essential (primary) hypertension] Onset: 01-05-2025 Chronic Fracture of lower limb (17 sources) Closed fracture of shaft of fibula; Translations: [Other fracture of shaft of left fibula, initial encounter for closed fracture] Onset: 03-07-2024 03-07-2024 Episodic Gastrointestinal hemorrhage (10 sources) Hematochezia; Translations: [Melena] 03-15-2023 Episodic Genitourinary symptoms and ill-defined conditions (20 sources) Urinary frequency; Translations: [Dysuria] Resolved: 05-24-2011 06-08-2019 Episodic Headache; including migraine (8 sources) Headache; Translations: [Chronic nonintractable headache, unspecified headache type] 06-08-2019 Episodic Comment on above: think sinus headache is better Headache; including migraine (4 sources) Headache; including migraine Immunizations and screening for infectious disease (7 sources) Needs influenza immunization; Translations: [Encounter for immunization] Episodic Menopausal disorders (5 sources) Postmenopausal bleeding; Translations: [Postmenopausal bleeding] Onset: 08-27-2024 07-13-2024 Chronic Mood disorders (4 sources) Reactive depression (situational); [...] [Bilateral carotid artery stenosis] 10-27-2020 Chronic Other and unspecified benign neoplasm (4 sources) Change in skin lesion; Translations: [Melanocytic nevi, unspecified] 03-15-2023 Episodic Other and unspecified benign neoplasm (3 sources) Melanocytic nevi, unspecified; Translations: [Benign neoplasm of skin, site unspecified] 03-15-2023 Episodic Other bone disease and musculoskeletal deformities (8 sources) Osteopenia; Translations: [Osteopenia] 06-08-2019 Episodic Other circulatory disease (4 sources) Abnormal chest sounds; Translations: [Abnormal lung sounds] 06-08-2019 Episodic Other connective tissue disease (8 sources) Thigh pain; Translations: [Pain in right thigh] 07-14-2021 Episodic Other connective tissue disease (2 sources) Right sided abdominal pain; Translations: [Myalgia, other site] 04-24-2023 Episodic Other connective tissue disease (1 source) Myalgia, other site; Translations: [Myalgia and myositis, unspecified] 04-24-2023 Episodic Other connective tissue disease (2 sources) Pain in left lower limb; Translations: [Pain in left leg] 03-07-2024 Episodic Other connective tissue disease (1 source) Pain in left leg; Translations: [Left leg pain] Onset: 03-07-2024 Episodic Other female genital disorders (10 sources) Postcoital bleeding; Translations: [Postcoital bleeding] Onset: 08-28-2011 08-28-2011 Chronic Other female genital disorders (1 source) Lump of cervix; Translations: [Other specified noninflammatory disorders of cervix uteri] 08-04-2024 Episodic Other female genital disorders (1 source) Polyp at cervical os; Translations: [Polyp of cervix uteri] 06-17-2024 Episodic Other lower respiratory disease (4 sources) Fibrosis of lung; 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] 06-08-2019 Chronic Other lower respiratory disease (8 sources) Dyspnea Episodic Other nervous system disorders (8 sources) Carpal tunnel syndrome; Translations: [Carpal tunnel syndrome] 06-08-2019 Chronic Other nervous system disorders (1 source) Unspecified abnormalities of gait and mobility; Translations: [Gait difficulty] Onset: 03-07-2024 Episodic Other non-traumatic joint disorders (16 sources) Pain in elbow; Translations: [Pain in right elbow] Resolved: 02-07-2009 08-22-2012 Episodic Other non-traumatic joint disorders (1 source) Pain in right elbow; Translations: [Pain in joint, upper arm] Episodic Other non-traumatic joint disorders (2 sources) Shoulder pain; Translations: [Pain in right shoulder] 07-17-2022 Episodic Other non-traumatic joint disorders (6 sources) Pain in right shoulder; Translations: [Pain in joint, shoulder region] Episodic Other nutritional; endocrine; and metabolic disorders [...] bacterial] 06-08-2019 Chronic Other upper respiratory infections (13 sources) Acute maxillary sinusitis; Translations: [Acute sinusitis] [...] rx , and x-rays reviewed Substance-related disorders (20 sources) Smoker; Translations: [Tobacco dependence, continuous] Onset: 03-02-2024 06-08-2019 Chronic Unclassified (20 sources) Unclassified (8 sources) LOW BACK PAIN WITH RADICULOPATHY (724.4) Unclassified (8 sources) Cervical Spasm (728.85) Unclassified (4 sources) CONJUNCTIVITIS, CHRONIC ALLERGIC NEC (372.14) Unclassified (20 sources) Current smoker Unclassified (12 sources) Bilateral carotid artery stenosis Unclassified (4 sources) Chest pain, atypical Unclassified (4 sources) Apical lung scarring Past or Other Problems Problem Classification Problem Date Documented Date Episodic/Chronic Inflammation; infection of eye (except that caused [...] Onset: 1 Resolved: 1 09-04-2011 Episodic Other female genital disorders (1 source) Polyp of cervix uteri; Translations: [Polyp of cervix uteri] Onset: 4 Episodic Other lower respiratory disease (4 sources) Dyspnea on exertion; Translations: [SOB (shortness of breath) on exertion] Resolved: 2 08-05-2015 Episodic Other screening for suspected conditions (not mental disorders or infectious disease) (20 sources) Patient encounter status; Translations: [Encounter for screening for malignant neoplasm of respiratory organs] Onset: 4 Episodic Other upper respiratory disease (4 sources) Bronchospasm; Translations: [Post-infection bronchospasm] Resolved: 6 06-17-2017 Episodic Screening and history of mental health and substance abuse codes (2 sources) Tobacco use and exposure - finding; Translations: [Personal history of nicotine dependence] Onset: 4 02-25-2024 Episodic Unclassified (20 sources) Body mass index [...] Test Name Value Interpretation Reference Range Facility Urgent Care Visit Reporton 0 01-04-2025 Urgent Care Visit Report [facility] [address], [address] [place] [address] OFFICE VISIT Date of Service: 01/04/25 MR#: [id number] Acct: [id number] Name: FELICITY VILLA Rep #: [id number] : 1965 Provider: MEGHNA Whitt Age/Sex: 59/F Location: [facility] Status: Signed Intake Vital Signs 12/23/24 08:44 01/04/25 08:20 Height 5 ft 4 in Weight: 135 lb BMI 23.1 BP 118/60 120/78 Blood Pressure Location Lt brachial Position Sitting Sitting Respiration 18 Pulse 82 78 Pulse Source Monitor Temp 96.2 F L 98.4 F Temp Source Temporal Oral Pulse Oximetry (%) 98 98 Oxygen Delivery Method room air room air Intake Visit Reasons: concern for sinus infection Accompanied by: Self Allergies No Known Allergies Allergy (Verified 01/04/25 08:17) Medications ???Medication ???Instructions ???Recorded ???Confirmed ???Type aspirin 81 mg tablet,delayed 81 mg PO DAILY 04/03/22 01/04/25 H istory release (Erin Low Dose Aspirin) lorazepam 1 mg tablet (Ativan) 0.5 mg (1/2 x 1 mg) PO DAILY PRN 0 04/03/22 01/04/25 Rx PRN Anxiety #15 tabs cholecalciferol (vitamin D3) 50 25 mcg PO DAILY 01/22/23 01/04/25 History mcg (2,000 unit) capsule mecobalamin (vitamin B12) 1,000 5,000 mcg PO DAILY 03/15/23 History mcg chewable tablet ascorbic acid (vitamin C) 500 mg 500 mg PO DAILY 07/29/24 01/04/25 History tablet (C-500) calcium 600 mg capsule 600 mg PO DAILY 07/29/24 01/04/25 History hydrochlorothiazide 25 mg tablet 25 mg PO QAM #90 tabs 11/23/24 Rx azithromycin 250 mg tablet 250 mg PO .COMPLEX #12 tabs 01/04/25 Rx Nurse's Note: Patient has Sinus pressure and congestion and a stuffy nose. Patient states this has been going on since and she can't get anything to go through her nose like nasal sprays due to the congestion. PFSH Medical History Back pain Head ache Former smoker History of tobacco use Encounter for screening for malignant neoplasm of lung Preventative health care Muscular abdominal pain in right flank Post-menopausal Alcohol use Arthritis History of diverticulitis Emphysema, unspecified Shortness of breath on exertion History of stress test Hypertension Health care maintenance Change in skin mole Blood in stool Abdominal pain Colon cancer screening Hyperlipidemia Flu vaccine need Elevated blood sugar Right shoulder pain Tobacco use disorder, continuous Encounter for screening for malignant neoplasm of lung in current smoker with 30 pack year history or greater Breast cancer screening Right thigh pain Right elbow pain High cholesterol Anxiety Surgical History H/O dilation and curettage Hx of colonoscopy Hx of wisdom tooth extraction Family History Mother Arthritis Myocardial infarction Heart disease Sister Breast cancer Father Diabetes Lung cancer Brother Lung cancer Social History number of children: 2 sexually active: Yes Smoking Status: Former smoker Tobacco: How many years used: 30 Electronic Cigarette Use: not used how long ago did patient quit smoking: Quit 01/2024 second hand exposure: Yes alcohol intake: current alcohol intake frequency: a few times a month Alcohol type: wine substance use type: does not use seatbelt use: always do you feel safe at home: Yes Female Reproductive History Menstrual Date of menopause: 10/24/14 HPI HPI Details: FELICITY VILLA, is a 59 F who presents to the office today for [facility] at [facility] for approximately 5-7 day history of progressively worsening facial pressure/congestion with purulent postnasal drip/cough and bilateral ear pressure. No complaints of fever, chills, myalgias, fatigue, runny nose, or nausea/vomiting/diarrhe a. No complaints of chest pain/shortness of breath/dyspnea on exertion. No close contacts with similar complaints. No other associated symptoms and no other alleviating/aggravating factors. ROS Const Constitutional: No other (as above) Exam Const General: cooperative, healthy appearing and no acute distress Nutritional Appearance: average body habitus Orientation: alert, awake and oriented x3 HENMT Head: normal to inspection Ears: hearing grossly normal bilaterally, external ears normal, TM's normal bilaterally and EAC's normal Nose: external nose normal, nares normal, septum normal and no nasal discharge Face and sinus: normal facial exam, bilateral maxillary sinus palpable tender (with bilateral maxillary fullness to palpation) and face (more content not included)... Normal [facility] Anion gap in Serum or Plasma Ordered By: Naomie Martini on 12-30-2024 Anion gap [Moles/Vol] 10 mmol/L 5-15 [facility] BUN/creatinine ratioOrdered By: Naomie Martini on 12-30-2024 Urea nitrogen/Creatinine [Mass ratio] 21.6 mg/mg High 10-20 [facility] Bilirubin, totalOrdered By: Naomie Martini on 12-30-2024 Bilirubin [Mass/Vol] 0.53 mg/dL 0.00-1.30 [facility] Calculated very low density lipoprotein (VLDL) cholesterol measurementOrdered By: Naomie Martini on 12-30-2024 VLDL Cholesterol 26 mg/dL 5-40 [facility] Carbon dioxide, total [Moles /volume] in Central venous bloodOrdered By: Naomie Martini on 12-30-2024 CO2 [Moles/Vol] 29.2 mmol/L 21.0-32.0 [facility] Chloride assayOrdered By: Dena Martini on 12-30-2024 Chloride [Moles/Vol] 99 mmol/L 98-108 [facility] Comprehensive Metabolic Prof ilon 12-30-2024 Albumin [Mass/Vol] 4.5 g/dL Normal 3.5-5.0 [facility] Comment on above: Performed By: #### L 500.4100, L500.4050 #### [facility] [address] [place], [address] Albumin/Globulin [Mass ratio] 1.7 {ratio} Normal 0.9-2.4 [facility] Comment on above: Performed By: #### L 500.4100, L500.4050 #### [facility] [address] [place], [address] ALK PHOS 72 U/L Normal 35-104 [facility] Comment on above: Performed By: #### L 500.4100, L500.4050 #### [facility] [address] [place], [address] ALT [Catalytic activity/Vol] 16 U/L Normal <=34 [facility] Comment on above: Performed By: #### L 500.4100, L500.4050 #### [facility] [address] [place], [address] AST [Catalytic activity/Vol] 17 U/L Normal <=31 [facility] Comment on above: Performed By: #### L 500.4100, L500.4050 #### [facility] [address] [place], [address] Bilirubin [Mass/Vol] 0.53 mg/dL Normal 0.00-1.30 [facility] Comment on above: Performed By: #### L 500.4100, L500.4050 #### [facility] [address] [place], [address] BUN/CRE 21.6 RATIO High 10-20 [facility] Comment on above: Performed By: #### L 500.4100, [id number] #### [facility] [address] [place], [address] Calcium [Mass/Vol] 10.3 mg/dL Normal 7.6-11.0 [facility] Comment on above: Performed By: #### L 500.4100, L500.4050 #### [facility] [address] [place], [address] Chloride [Moles/Vol] 99 mmol/L Normal 98-108 [facility] Comment on above: Performed By: #### L 500.4100, L500.4050 #### [facility] [address] [place], [address] CO2 [Moles/Vol] 29.2 mmol/L Normal 21.0-32.0 [facility] Comment on above: Performed By: #### L 500.4100, L500.4050 #### [facility] [address] [place], [address] Creatinine [Mass/Vol] 0.68 mg/dL Low 0.70-1.20 [facility] Comment on above: Performed By: #### L 500.4100, L500.4050 #### [facility] [address] [place], [address] GAP 10 Normal 5-15 [facility] Comment on above: Performed By: #### L 500.4100, L500.4050 #### [facility] [address] [place], [address] GFR/1.73 sq M.predicted among non-blacks MDRD (S/P/Bld) [Vol rate/Area] 100 mL/min/{1.73_m2} Normal >60 [facility] Comment on above: Result Comment: mL/m in/1.73m2 CKD-EPI Creatinine Equation (2020) Performed By: #### L 500.4100, L500.4050 #### [facility] [address] [place], [address] Globulin (S) [Mass/Vol] 2.6 g/dL Normal 2.2-4.2 [facility] Comment on above: Performed By: #### L 500.4100, L500.4050 #### [facility] [address] [place], [address] Glucose [Mass/Vol] 108 mg/dL High 70-99 [facility] Comment on above: Performed By: #### L 500.4100, L500.4050 #### [facility] [address] [place], [address] Potassium [Moles/Vol] 4.7 mmol/L Normal 3.3-5.1 [facility] Comment on above: Performed By: #### L 500.4100, L500.4050 #### [facility] [address] [place], [address] Sodium [Moles/Vol] 139 mmol/L Normal 133-145 [facility] Comment on above: Performed By: #### L 500.4100, L500.4050 #### [facility] [address] [place], [address] T PROT 7.1 g/dL Normal 5.9-8.4 [facility] Comment on above: Performed By: #### L 500.4100, L500.4050 #### [facility] [address] [place], [address] Urea nitrogen [Mass/Vol] 15 mg/dL Normal 4-19 [facility] Comment on above: Performed By: #### L 500.4100, L500.4050 #### [facility] [address] [place], [address] GFR/1.73 sq M.predicted sahil g non-blacks MDRD (S/P/Bld) [Vol rate/Area]Ordered By: Naomie Martini on 12-30-2024 Estimated GFR (MDRD) Non-Af Amer 100 >60 [facility] Comment on above: mL/min/1.73m2 CKD-EP I Creatinine Equation (2020) LDL calc ser/plasOrdered By: Naomie Martini on 12-30-2024 LDL Cholesterol, Calculated 159 mg/dL [facility] Comment on above: Oxshfrramp=935-539 m g/dL & Higher Kszf=074 mg/dL or greater Laboratory - Chemistry and C hemistry - challengeOrdered By: Naomie Brownecaritoromeo on 12-30-2024 AST [Catalytic activity/Vol] 17 U/L <32 [facility] Lipid Profileon 12-30-2024 CHOL:HDL 4.28 Normal [facility] Comment on above: Performed By: #### L 500.4100, L500.4050 ####[facility] [address] [place], [address] Cholesterol [Mass/Vol] 242 mg/dL High <=200 [facility] Comment on above: Result Comment: Chol esterol level, Desirable <200 mg/dL Borderline high cholesterol 200-239 mg/dL High cholesterol >=240 mg/dL Recommendations of the NCEP Adult Treatment Panel for the following risk-cutoff thresholds for the [place] population. Performed By: #### L 500.4100, L500.4050 ####[facility] [address] [place], [address] Cholesterol in HDL [Mass/Vol] 57 mg/dL Normal [facility] Comment on above: Result Comment: Sita onal Cholesterol Education Program (NCEP) guidelines: <40 mg/dL: Low HDL-cholesterol (major risk factor for CHD) >= 60 mg/dL: High HDL-cholesterol (negative risk factor for CHD) HDL-cholesterol is affected by a number of factors, e.g. smoking, exercise, hormones, sex and age. Performed By: #### L 500.4100, L500.4050 ####[facility] [address] [place], [address] Cholesterol in LDL [Mass/Vol] 159 mg/dL Normal [facility] Comment on above: Result Comment: Bord rxjtls=926-761 mg/dL Higher Tuja=415 mg/dL or greater Performed By: #### L 500.4100, L500.4050 ####[facility] [address] [place], [address] Cholesterol in VLDL [Mass/Vol] 26 mg/dL Normal 5-40 [facility] Comment on above: Performed By: #### L 500.4100, L500.4050 ####[facility] [address] [place], [address] Triglyceride [Mass/Vol] 132 mg/dL Normal [facility] Comment on above: Result Comment: The drugs N-Acetylcysteine and Metamizole may falsely depress this assay. Normal range: <150 mg/dL Borderline High: 150-199 mg/dL High: 200-499 mg/dL Very High: >500 mg/dL Performed By: #### L 500.4100, L500.4050 ####[facility] [address] [place], [address] Potassium (Unsp spec) [Mass/ Vol]Ordered By: aNomie Martini on 12-30-2024 Potassium [Moles/Vol] 4.7 mmol/L 3.3-5.1 [facility] Screening total cholesterol/ high density lipoprotein (HDL) cholesterol ratioOrdered By: Naomie Martini on 12-30-2024 Cholesterol.total/Cho lesterol in HDL [Mass ratio] 4.28 {ratio} [facility] Serum creatinine measurement (mass/volume)Ordered By: Naomie Martini on 12-30-2024 Creatinine [Mass/Vol] 0.68 mg/dL Low 0.70-1.20 [facility] Serum globulin measurementOr dered By: Naomie Martini on 12-30-2024 Globulin (S) [Mass/Vol] 2.6 g/dL 2.2-4.2 [facility] Serum glucose measurement (m ass/volume)Ordered By: Naomie Martini on 12-30-2024 Glucose [Mass/Vol] 108 mg/dL High 70-99 [facility] Serum or plasma alanine siu otransferase (ALT) measurementOrdered By: Naomie Martini on 12-30-2024 ALT [Catalytic activity/Vol] 16 U/L <35 [facility] Serum or plasma albumin walter urement (mass/volume)Ordered By: Naomie Martini on 12-30-2024 Albumin [Mass/Vol] 4.5 g/dL 3.5-5.0 [facility] Serum or plasma albumin/glob ulin mass ratioOrdered By: Naomie Martini on 12-30-2024 Albumin/Globulin [Mass ratio] 1.7 {ratio} 0.9-2.4 [facility] Serum or plasma alkaline belén sphatase measurementOrdered By: Naomie Matrini on 12-30-2024 ALP [Catalytic activity/Vol] 72 U/L 35-104 [facility] Serum or plasma calcium walter urement (mass/volume)Ordered By: Naomie Martini on 12-30-2024 Calcium [Mass/Vol] 10.3 mg/dL 7.6-11.0 [facility] Serum or plasma cholesterol in HDL measurement (mass/volume)Ordered By: Naomie Martini 12-30-2024 Cholesterol in HDL [Mass/Vol] 57 mg/dL >40 [facility] Comment on above: National Cholesterol Education Program (NCEP) guidelines:<40 mg/dL: Low HDL-cholesterol (major risk factor for CHD)>= 60 mg/dL: High HDL-cholesterol (negative risk factor for CHD)HDL-cholesterol is affected by a number of factors, e.g. smoking, exercise, hormones, sex and age. Serum or plasma cholesterol measurement (mass/volume)Ordered By: Naomie Martini on 12-30-2024 Cholesterol [Mass/Vol] 242 mg/dL High <201 [facility] Comment on above: Cholesterol level, D esirable <200 mg/dLBorderline high cholesterol 200-239 mg/dLHigh cholesterol >=240 mg/dLRecommendations of the NCEP Adult Treatment Panel for the following risk-cutoff thresholds for the [place] population. Serum or plasma urea nitroge n measurement (mass/volume)Ordered By: Naomie Martini on 12-30-2024 Urea nitrogen [Mass/Vol] 15 mg/dL 4-19 [facility] Sodium levelOrdered By: Jayne Martini on 12-30-2024 Sodium [Moles/Vol] 139 mmol/L 133-145 [facility] Total proteinOrdered By: Sunil Martini on 12-30-2024 Protein [Mass/Vol] 7.1 g/dL 5.9-8.4 [facility] Triglycerides measurementOrd ered By: Naomie Martini on 12-30-2024 Triglyceride [Mass/Vol] 132 mg/dL <199 [facility] Comment on above: The drugs N-Acetylcy steine and Metamizole may falsely depress this assay. Normal range: <150 mg/dLBorderline High: 150-199 mg/dLHigh: 200-499 mg/dLVery High: >500 mg/dL Internal Medicine Office Vis iton 12-23-2024 Internal Medicine Office Visit [facility] [address] [place] [address] [place] [address] OFFICE VISIT Date of Service: 12/23/24 MR#: [id number] Acct: [id number] Name: FELICITY VILLA Rep #: [id number] : 1965 Provider: Dr. Naomie west MD Age/Sex: 59/F Location: [facility] Status: Signed Intake Vital Signs 09/02/24 10:04 12/23/24 08:44 Height 5 ft 4 in 5 ft 4 in Weight: 135 lb 135 lb BMI 23.1 23.1 BP 122/74 H 118/60 Blood Pressure Location Lt brachial Lt brachial Position Sitting Sitting Respiration 16 18 Pulse 98 82 Pulse Source Monitor Monitor Temp 98.2 F 96.2 F L Temp Source Oral Temporal Pulse Oximetry (%) 98 98 Oxygen Delivery Method room air room air Intake Visit Reasons: 6 month med check Chief Complaint: 6 month med check Is patient in pain?: No Allergies No Known Allergies Allergy (Verified 12/23/24 08:45) Medications ???Medication ???Instructions ???Recorded ???Confirmed ???Type aspirin 81 mg tablet,delayed 81 mg PO DAILY 04/03/22 12/23/24 H istory release (Erin Low Dose Aspirin) lorazepam 1 mg tablet (Ativan) 0.5 mg (1/2 x 1 mg) PO DAILY PRN 0 04/03/22 12/23/24 Rx PRN Anxiety #15 tabs cholecalciferol (vitamin D3) 50 25 mcg PO DAILY 01/22/23 12/23/24 History mcg (2,000 unit) capsule mecobalamin (vitamin B12) 1,000 5,000 mcg PO DAILY 03/15/23 History mcg chewable tablet ascorbic acid (vitamin C) 500 mg 500 mg PO DAILY 07/29/24 12/23/24 History tablet (C-500) calcium 600 mg capsule 600 mg PO DAILY 07/29/24 12/23/24 History hydrochlorothiazide 25 mg tablet 25 mg PO QAM #90 tabs 11/23/2411/17 Rx PFSH Medical History Back pain Head ache Former smoker History of tobacco use Encounter for screening for malignant neoplasm of lung Preventative health care Muscular abdominal pain in right flank Post-menopausal Alcohol use Arthritis History of diverticulitis Emphysema, unspecified Shortness of breath on exertion History of stress test Hypertension Health care maintenance Change in skin mole Blood in stool Abdominal pain Colon cancer screening Hyperlipidemia Flu vaccine need Elevated blood sugar Right shoulder pain Tobacco use disorder, continuous Encounter for screening for malignant neoplasm of lung in current smoker with 30 pack year history or greater Breast cancer screening Right thigh pain Right elbow pain High cholesterol Anxiety Surgical History H/O dilation and curettage Hx of colonoscopy Hx of wisdom tooth extraction Family History Mother Arthritis Myocardial infarction Heart disease Sister Breast cancer Father Diabetes Lung cancer Brother Lung cancer Social History number of children: 2 sexually active: Yes Smoking Status: Former smoker Tobacco: How many years used: 30 Electronic Cigarette Use: not used how long ago did patient quit smoking: Quit 01/2024 second hand exposure: Yes alcohol intake: current alcohol intake frequency: a few times a month Alcohol type: wine substance use type: does not use seatbelt use: always do you feel safe at home: Yes Female Reproductive History Menstrual Date of menopause: 10/24/14 HPI HPI Chief Complaint: 6 month med check Details: FELICITY VILLA, is a 59 F who presents to the office today for follow-up of her chronic conditions. No acute concerns at this time. History of hypertension, blood pressure today at 118/60 8 mmHg. Currently on hydrochlorothiazide which she is taking as prescribed. No chest pain, palpitation or shortness of breath. No further concerns with bleeding. Follows up with [employer] closely. She has also reported vaginal dryness, this was thought to be menopausal/from vagina or any therapy. Recommendation was to start coconut oil which she is yet to. Other chronic conditions are stable. ROS Const Constitutional: No body ache, chills, excessive sweating, fatigue, fever(s), frequent falls, headache(s), snoring, weight change, sleep problems, abnormal sleep pattern or change in appetite Eyes Eyes: No blurry vision, change in vision, floaters, eye pain or Light sensitivity ENT ENT: No abnormal hearing, ear or mastoid pain, tinnitus, balance problems, nosebleed/epistaxis, nasal congestion, headache(s), neck pain or sore throat Resp Respiratory: No cough, excessive phlegm production, pain on inspiration, shortness of breath, snoring or wheezing Cardio Cardiology: No chest pain at rest, chest pain with exertion, excessive sweating, shortness of breath, dyspnea on exertion, lightheadedness, orthopne (more content not included)... Normal [facility] Urgent Care Visit Reporton 1 11-03-2023 Urgent Care Visit Report [facility] [address], [address] [place] [id number] OFFICE VISIT Date of Service: 09/02/24 MR#: [id number] Acct: [id number] Name: FELICITY VILLA Rep #: [id number] : 1965 Provider: MEGHNA Whitt Age/Sex: 59/F Location: [facility] Status: Signed Intake Vital Signs 08/18/24 09:14 09/02/24 10:04 Height 5 ft 3 in 5 ft 4 in Weight: 135 lb BMI 23.1 BP 122/74 H Blood Pressure Location Lt brachial Position Sitting Respiration 16 Pulse 98 Pulse Source Monitor Temp 98.2 F Temp Source Oral Pulse Oximetry (%) 98 Oxygen Delivery Method room air Intake Visit Reasons: CONCERN FOR PINK EYE Chief Complaint: PINK EYE [employer] Required: No Accompanied by: Self Is patient in pain?: No Allergies No Known Allergies Allergy (Verified 09/02/24 10:05) Medications ???Medication ???Instructions ???Recorded ???Confirmed ???Type aspirin 81 mg tablet,delayed 81 mg PO DAILY 04/03/22 09/02/24 History release (Erin Low Dose Aspirin) lorazepam 1 mg tablet (Ativan) 0.5 mg (1/2 x 1 mg) PO DAILY PRN 04/03/22 09/02/24 Rx PRN Anxiety #15 tabs cholecalciferol (vitamin D3) 50 25 mcg PO DAILY 01/22/23 09/02/24 History mcg (2,000 unit) capsule mecobalamin (vitamin B12) 1,000 5,000 mcg PO DAILY 03/15/23 09/02/24 History mcg chewable tablet hydrochlorothiazide 25 mg tablet 25 mg PO QAM #90 tabs 05/15/24 09/02/24 Rx ascorbic acid (vitamin C) 500 mg 500 mg PO DAILY 07/29/24 09/02/24 History tablet (C-500) calcium 600 mg capsule 600 mg PO DAILY 07/29/24 09/02/24 History tobramycin 0.3 % eye drops 1 drp ophthalmic (eye) Q2H #5 mL 09/02/24 09/02/24 Rx PFSH Medical History Back pain Head ache Former smoker History of tobacco use Encounter for screening for malignant neoplasm of lung Preventative health care Muscular abdominal pain in right flank Post-menopausal Alcohol use Arthritis History of diverticulitis Emphysema, unspecified Shortness of breath on exertion History of stress test Hypertension Health care maintenance Change in skin mole Blood in stool Abdominal pain Colon cancer screening Hyperlipidemia Flu vaccine need Elevated blood sugar Right shoulder pain Tobacco use disorder, continuous Encounter for screening for malignant neoplasm of lung in current smoker with 30 pack year history or greater Breast cancer screening Right thigh pain Right elbow pain High cholesterol Anxiety Surgical History H/O dilation and curettage Hx of colonoscopy Hx of wisdom tooth extraction Family History Mother Arthritis Myocardial infarction Heart disease Sister Breast cancer Father Diabetes Lung cancer Brother Lung cancer Social History number of children: 2 sexually active: Yes Smoking Status: Former smoker Tobacco: How many years used: 30 Electronic Cigarette Use: not used how long ago did patient quit smoking: Quit 01/2024 second hand exposure: Yes alcohol intake: current alcohol intake frequency: a few times a month Alcohol type: wine substance use type: does not use seatbelt use: always do you feel safe at home: Yes Female Reproductive History Menstrual Date of menopause: 10/24/14 HPI HPI Chief Complaint: PINK EYE Details: FELICITY VILLA, is a 59 F who presents to the office today for initial evaluation new onset right eye conjunctival injection with exudate. No vision changes or eye globe pain. No complaints of fever, chills, sweats, lightheadedness/dizzine ss, nausea/vomiting. No kuid-fdu-vbvkwco ophthalmic drops tried to assist. No other associated symptoms and no other alleviating/aggravating factors. ROS Const Constitutional: No other (As above) Exam Const General: cooperative, healthy appearing and no acute distress Orientation: alert, awake and oriented x3 HENMT Head: normal to inspection Ears: hearing grossly normal bilaterally and external ears normal Nose: external nose normal and no nasal discharge Eyes General: appearance normal, both eyes and all related structures Other: Except right conjunctival injection with exudate; negative limbus OU Neck Neck: normal visual inspection, no meningeal signs and supple Resp Effort Inspection: normal respiratory effort and able to speak in complete sentences Cardio Rate: regular rate Pulses: radial pulses present Skin General: no rashes or lesions noted Neuro General: patient alert, patient awake and patient oriented x3 Cognition: normal cognition Speech: speech normal Psych Appearance: grossly normal (more content not included)... Normal [facility] Hr Advisor Office Visit Reporton 08-18-2024 Hr Advisor Office Visit Report [facility] [address], [address] [place] [address] OFFICE VISIT Date of Service: 08/18/24 MR#: [id number] Acct: [id number] Name: FELICITY VILLA Rep #: [id number] : 1965 Provider: Dr. 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 Is patient in pain?: Yes (occasional back ache and cramping) Allergies No Known Allergies Allergy (Verified 08/18/24 09:12) Medications ???Medication ???Instructions ???Recorded ???Confirmed ???Type aspirin 81 mg tablet,delayed 81 mg PO DAILY 04/03/22 08/18/24 History release (Erin Low Dose Aspirin) lorazepam 1 mg tablet (Ativan) 0.5 mg (1/2 x 1 mg) PO DAILY PRN 04/03/22 08/18/24 Rx PRN Anxiety #15 tabs cholecalciferol (vitamin D3) 50 25 mcg PO DAILY 01/22/23 08/18/24 History mcg (2,000 unit) capsule mecobalamin (vitamin B12) 1,000 5,000 mcg PO DAILY 03/15/23 08/18/24 History mcg chewable tablet hydrochlorothiazide 25 mg tablet 25 mg PO QAM #90 tabs 05/15/24 08/18/24 Rx ascorbic acid (vitamin C) 500 mg 500 mg PO DAILY 07/29/24 08/18/24 History tablet (C-500) calcium 600 mg capsule 600 mg PO DAILY 07/29/24 08/18/24 History Patient : No : No PFSH Medical History Back pain Head ache Former smoker History of tobacco use Encounter for screening for malignant neoplasm of lung Preventative health care Muscular abdominal pain in right flank Post-menopausal Alcohol use Arthritis History of diverticulitis Emphysema, unspecified Shortness of breath on exertion History of stress test Hypertension Health care maintenance Change in skin mole Blood in stool Abdominal pain Colon cancer screening Hyperlipidemia Flu vaccine need Elevated blood sugar Right shoulder pain Tobacco use disorder, continuous Encounter for screening for malignant neoplasm of lung in current smoker with 30 pack year history or greater Breast cancer screening Right thigh pain Right elbow pain High cholesterol Anxiety Surgical History H/O dilation and curettage Hx of colonoscopy Hx of wisdom tooth extraction Family History Mother Arthritis Myocardial infarction Heart disease Sister Breast cancer Father Diabetes Lung cancer Brother Lung cancer Social History number of children: 2 sexually active: Yes Smoking Status: Former smoker Tobacco: How many years used: 30 Electronic Cigarette Use: not used how long ago did patient quit smoking: Quit 01/2024 second hand exposure: Yes alcohol intake: current alcohol intake frequency: a few times a month Alcohol type: wine substance use type: does not use seatbelt use: always do you feel safe at home: Yes HPI 2 wk D C Details: FELICITY VILLA is a 59 year old who presents for History 2 Elective abortions Hx Para 2 Spontaneous abortions Hx # Term Pregnancies Ectopic pregnancies Hx # Pregnancies Multiple births # of living children 2 ROS Const Constitutional: Reports system reviewed and no additional complaints, except as documented GI GI: Denies abdominal pain, cramping, nausea or vomiting : Denies pelvic pain, urinary frequency, urinary incontinence, urinary urgency, vaginal discharge, vaginal dryness or vaginal odor Exam Const General: cooperative, healthy appearing, comfortable and no acute distress GI Inspection: normal to inspection Palpation: soft and nontender Coding Level of Care Code No Charge Diagnoses Postmenopausal bleeding N95.0 Assessment and Plan Assessment and Plan (1) Postmenopausal bleeding: Status: Acute Plan fu annually 08/18/24937 Date Elise Medrano Signature: Date (if applicable) CC: Normal [facility] Basic Metabolic Profile (BMP )on 08-10-2024 BUN/CRE 23.7 RATIO High 10-20 [facility] Comment on above: Performed By: #### L 500.2500 ####[facility] [address] [place], [address] CA,Total 9.3 mg/dL Normal 8.5-10.1 [facility] Comment on above: Performed By: #### L 500.2500 ####[facility] [address] [place], [address] Chloride [Moles/Vol] 102 mmol/L Normal 98-107 [facility] Comment on above: Performed By: #### L 500.2500 ####[facility] [address] [place], [address] CO2 [Moles/Vol] 31.0 mmol/L Normal 21.0-32.0 [facility] Comment on above: Performed By: #### L 500.2500 ####[facility] [address] [place], [address] Creatinine [Mass/Vol] 0.63 mg/dL Normal 0.55-1.02 [facility] Comment on above: Result Comment: The validity of the calculated GFR GFRAA in patients over 70 years has not been determined. Clinical correlation is essential. Performed By: #### L 500.2500 ####[facility] [address] [place], [address] EST GFR - AA 123 mL/min Normal >60 [facility] Comment on above: Result Comment: Afri can Peruvian GFR Calc Performed By: #### L 500.2500 ####[facility] [address] [place], [address] GAP 6 Normal 5-15 [facility] Comment on above: Performed By: #### L 500.2500 ####[facility] [address] [place], [address] GFR/1.73 sq M.predicted among non-blacks MDRD (S/P/Bld) [Vol rate/Area] 102 mL/min/{1.73_m2} Normal >60 [facility] Comment on above: Result Comment: Non- GFR Calc Performed By: #### L 500.2500 ####[facility] [address] [place], [address] Glucose [Mass/Vol] 104 mg/dL Normal 74-106 [facility] Comment on above: Result Comment: Fast ing Glucose result from 100 to 125 mg/dL suggests IMPAIRED HOMEOSTASIS per A.D.A. criteria. Performed By: #### L 500.2500 ####[facility] [address] [place], [address] Potassium [Moles/Vol] 4.4 mmol/L Normal 3.5-5.1 [facility] Comment on above: Performed By: #### L 500.2500 ####[facility] [address] [place], [address] Sodium [Moles/Vol] 138 mmol/L Normal 136-145 [facility] Comment on above: Performed By: #### L 500.2500 ####[facility] [address] [place], [address] Urea nitrogen [Mass/Vol] 15 mg/dL Normal 7-18 [facility] Comment on above: Performed By: #### L 500.2500 ####[facility] [address] [place], [address] Internal Medicine Office Vis zenon 08-10-2024 Internal Medicine Office Visit [facility] [address] [place], [place] [address] OFFICE VISIT Date of Service: 08/10/24 MR#: [id number] Acct: [id number] Name: FELICITY VILLA Rep #: [id number] : 1965 Provider: Dr. 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 Is patient in pain?: No Allergies No Known Allergies Allergy (Verified 08/10/24 08:51) Medications ???Medication ???Instructions ???Recorded ???Confirmed ???Type aspirin 81 mg tablet,delayed 81 mg PO DAILY 04/03/22 08/10/24 History release (Erin Low Dose Aspirin) lorazepam 1 mg tablet (Ativan) 0.5 mg (1/2 x 1 mg) PO DAILY PRN 04/03/22 08/10/24 Rx PRN Anxiety #15 tabs cholecalciferol (vitamin D3) 50 25 mcg PO DAILY 01/22/23 08/10/24 History mcg (2,000 unit) capsule mecobalamin (vitamin B12) 1,000 5,000 mcg PO DAILY 03/15/23 08/10/24 History mcg chewable tablet ibuprofen 800 mg tablet 800 mg PO TID PRN pain #21 tabs 04/22/23 08/10/24 Rx hydrochlorothiazide 25 mg tablet 25 mg PO QAM #90 tabs 05/15/24 08/10/24 Rx ascorbic acid (vitamin C) 500 mg 500 mg PO DAILY 07/29/24 08/10/24 History tablet (C-500) calcium 600 mg capsule 600 mg PO DAILY 07/29/24 08/10/24 History Nurse's Note: Is not feeling well after having d C wants to know if it's okay to have a flu vaccine. [facility] Medical History Back pain Head ache Former smoker History of tobacco use Encounter for screening for malignant neoplasm of lung Preventative health care Muscular abdominal pain in right flank Post-menopausal Alcohol use Arthritis History of diverticulitis Emphysema, unspecified Shortness of breath on exertion History of stress test Hypertension Health care maintenance Change in skin mole Blood in stool Abdominal pain Colon cancer screening Hyperlipidemia Flu vaccine need Elevated blood sugar Right shoulder pain Tobacco use disorder, continuous Encounter for screening for malignant neoplasm of lung in current smoker with 30 pack year history or greater Breast cancer screening Right thigh pain Right elbow pain High cholesterol Anxiety Surgical History H/O dilation and curettage Hx of colonoscopy Hx of wisdom tooth extraction Family History Mother Arthritis Myocardial infarction Heart disease Sister Breast cancer Father Diabetes Lung cancer Brother Lung cancer Social History number of children: 2 sexually active: Yes Smoking Status: Former smoker Tobacco: How many years used: 30 Electronic Cigarette Use: not used how long ago did patient quit smoking: Quit 01/2024 second hand exposure: Yes alcohol intake: current alcohol intake frequency: a few times a month Alcohol type: wine substance use type: does not use seatbelt use: always do you feel safe at home: Yes Female Reproductive History Menstrual Date of menopause: 10/24/14 HPI HPI Chief Complaint: Follow-up chronic conditions Details: FELICITY VILLA, is a 59 F who presents to the office today for follow-up of her chronic conditions. Status post hysteroscopy/D C due to postmenopausal bleeding. She reports some cramping today but her [employer] office just reached out to her. Bleeding has increased compared to last week but not severe. Feels somewhat unwell. History of hypertension, blood pressure today at 112/78 similar to last reading. Currently on hydrochlorothiazide which she is taking as prescribed. Also quit smoking. ROS Const Constitutional: No body ache, chills, excessive sweating, fatigue, fever(s), frequent falls, headache(s), snoring, weakness, sleep problems or change in appetite Eyes Eyes: No blurry vision, change in vision, eye pain or Light sensitivity ENT ENT: No abnormal hearing, ear or mastoid pain, tinnitus, nasal congestion, headache(s), neck pain or sore throat Resp Respiratory: No cough, excessive phlegm production, pain on inspiration, shortness of breath, snoring or wheezing Cardio Cardiology: No chest pain at rest, chest pain with exertion, excessive sweating, shortness of breath, dyspnea on exertion, lighthea (more content not included)... Normal [facility] CBC-Complete Blood Cnt No Di ffon 08-04-2024 Erythrocyte distribution width (RBC) [Ratio] 14.6 % Normal 11.6-14.6 [facility] Comment on above: Performed By: #### L 100.0500, BTSPAT #### [facility] [address] [place], [address] Hematocrit (Bld) [Volume fraction] 39.5 % Normal 37-47 [facility] Comment on above: Performed By: #### L 100.0500, BTSPAT #### [facility] [address] [place], [address] Hemoglobin (Bld) [Mass/Vol] 14.5 g/dL Normal 12.0-15.0 [facility] Comment on above: Performed By: #### L 100.0500, BTSPAT #### [facility] [address] [place], [address] MCH (RBC) [Entitic mass] 28.3 pg Normal 27.0-32.0 [facility] Comment on above: Performed By: #### L 100.0500, BTSPAT #### [facility] [address] [place], [address] MCHC (RBC) [Mass/Vol] 36.7 g/dL High 32-36 [facility] Comment on above: Performed By: #### L 100.0500, BTSPAT #### [facility] [address] [place], [address] MCV (RBC) [Entitic vol] 77.1 fL Low 81-99 [facility] Comment on above: Performed By: #### L 100.0500, BTSPAT #### [facility] [address] [place], [address] Platelet mean volume (Bld) [Entitic vol] 11.7 fL Normal 6.2-12.0 [facility] Comment on above: Performed By: #### L 100.0500, BTSPAT #### [facility] [address] [place], [address] Platelets (Bld) [#/Vol] 230 10*3/uL Normal 150-450 [facility] Comment on above: Performed By: #### L 100.0500, BTSPAT #### [facility] [address] [place], [address] RBC (Bld) [#/Vol] 5.12 10*6/uL Normal 4.2-5.4 [facility] Comment on above: Performed By: #### L 100.0500, BTSPAT #### [facility] [address] [place], [address] RDW SD 39.8 fl Normal 35.1-43.9 [facility] Comment on above: Performed By: #### L 100.0500, BTSPAT #### [facility] [address] [place], [address] WBC (Bld) [#/Vol] 8.1 10*3/uL Normal 4.4-11.0 [facility] Comment on above: Performed By: #### L 100.0500, BTSPAT #### [facility] [address] [place], [address] Discharge Instructionon 07-24 Discharge Instruction [facility] Medical Records Department [address] [place] [address] Instructions for Home/Discharge Instructions 08/04/24 1230 MR#: [id number] Acct: [id number] Name: FELICITY VILLA Rep #: [id number] : 1965 59 From: Lyn Slaughter DO PCP: Dr. Naomie Martini MD Status:REG [facility] Discharge Instructions Diet Discharge Diet: No restrictions Activity Discharge Activity: Return to Normal Activity, May Shower and May Take a Tub Bath (after 1 week) May resume sexual activity in: 1-2 weeks Weight Bearing Status: Weight bearing as tolerated Lifting Restrictions: none Dressing / Incision Call your doctor if you observe: Fever of 101 or Higher, Using more than 1 pad per hour, Shortness of breath and Uncontrolled pain Follow Up Care Please Follow Up With: Lyn Slaughter DO When: Call [phone] to schedule appointment. Test Results: Test results from this visit will be discussed in further detail at your follow-up appointment, if applicable. Discharge Plan Admission Attending Provider: Lyn Slaughter Primary Care Provider: Naomie Martini Instructions Print Language: Bahraini Discharge Orders/Prescriptions Prescriptions: No Action aspirin [Erin Low Dose Aspirin] 81 mg tablet,delayed release (DR/EC) 81 mg PO DAILY lorazepam [Ativan] 1 mg tablet 0.5 mg PO DAILY PRN PRN (Reason: Anxiety) Qty: 15 0RF cholecalciferol (vitamin D3) 50 mcg (2,000 unit) capsule 25 mcg PO DAILY mecobalamin (vitamin B12) 1,000 mcg tablet,chewable 5,000 mcg PO DAILY ibuprofen 800 mg tablet 800 mg PO TID PRN (Reason: pain) Qty: 21 0RF ascorbic acid (vitamin C) [C-500] 500 mg tablet 500 mg PO DAILY calcium 600 mg capsule 600 mg PO DAILY hydrochlorothiazide 25 mg tablet 25 mg PO QAM Qty: 90 1RF Referrals / Follow Up: Naomie Martini MD [Primary Care Provider] - Disposition Disposition (needs filled in before D/C Order can be placed): Home, Self Care 08/04/24 1230 Lyn Slaughter DO CC: Dr. Naomei Martini MD Signed Normal [facility] KI-67 (initial)on 08-04-2024 KI-67 (initial) --- Patient Age/Sex Location Account Attending Physician FELICITY VILLA 59/F [facility] [id number] Dr. Lyn Slaughter, Jyoti Specimen: [id number] Received: 08/06/24 Status: DARRIUS Touremary Num: [id number] Spec Type: IMMUNO Subm Dr: Dr. Lyn Slaughter, [facility] [place] [address] SPECIMEN INFORMATION: Tissue Source: A- Cervical biopsy, B- Endometrial curettings Clinical Info: Post menopausal bleeding, polyp at cervical os Specimen Number: [id number] A, B CPT code: 31676s4,45120s8 METHODOLOGY: Deparaffinized sections of prefer/formalin-fixed tissue or PAP/DQ stained slides are incubated with monoclonal/polyclonal antibodies/oligonucleot emmie probes. Localization is made via biotin free immunoperoxidase method. Appropriate controls are performed and reacted as expected. Results on target cell population are indicated in the following table: RESULTS: ANTIBODY / CLONE RESULT Block A P16 (E6H4) positive, focal, patchy Ki-67 (30-9) positive, low Block B P16 (E6H4) positive, focal, patchy Ki-67 (30-9) positive, low These tests were developed and their performance characteristics determined by [facility]. They may not have been cleared or approved by the U.S. Food and Drug Administration. The FDA has determined that such clearance or approval is not necessary. The above immunohistochemical/caryn Hoa markers are ordered and reviewed by the Pathologist. INTERPRETATION: A. Cervix, biopsy: Focal HPV- like change present. B. Endometrial biopsy: Focal HPV-like changes present. AM. 08/07/2024 Signed (signature on file) Dr. Gera Price, 08/07/24 1143 Normal [facility] Comment on above: Performed By: #### P KI67 #### [facility] [address] [facility]. [place], [place], [address] MR/POSTOP.Andrea 08-04-2024 MR/POSTOP.[facility] Medical Records Department [address] [place] [address] Anesthesia Postop Eval I 08/04/24 1329 MR#: [id number] Acct: [id number] Name: FELICITY VILLA Rep #: [id number] : 1965 59 From: Kathie Rodrigeuz CRNA PCP: Dr. Naomie Martini MD Status:REG SDC Y Race: C Location: [place] [address] Anesthesia: Postop Eval I Current Vital Signs Temperature: 97.1 F Pulse Rate: 88 Blood Pressure: 103/67 Respiratory Rate: 16 Pulse Ox: 95 Oxygen Delivery Method: Room Air Assessment Airway patent: Yes Spontaneous unlabored respirations: Yes Mental status: Asleep nausea: No Vomiting: No Anesthesia Complication: No Fluid Hydration Crystalloid volume administer (ml): 10 Total IV fluid infused: 10 Progress Note Anesthesia document: Postop Eval 1 completed: Yes 08/04/24 1330 Date Kathie Rodriguez BROILER CHEF OR COOK Cosigner Signature: Date CC: Signed Normal [facility] MR/[id number] 08-04-2024 [facility] Medical Records Department [address] [place] [address] Anesthesia Postop Eval II 08/04/24 1623 MR#: [id number] Acct: [id number] Name: FELICITY VILLA Rep #: [id number] : 1965 59 From: Brant Polanco MD PCP: Dr. Naomie Martini MD Status:[facility] Y Race: C Location: [facility] Anesthesia Postop Eval I Sum Postop Eval Completion status Anesthesia document: Postop Eval 1 completed: Yes Anesthesia Postop Eval I Summary Anesthesia Postop Eval I Summary: Anesthesia Postop Eval I: Assessment Summary Airway patent Yes 08/04/24 13:30 BROILER CHEF OR COOK.THIAGOOBY Spontaneous unlabored Yes 08/04/24 13:30 BROILER CHEF OR COOK.THIAGOOBY respirations Mental status Asleep 08/04/24 13:30 BROILER CHEF OR COOK.SKOBY nausea No 08/04/24 13:30 BROILER CHEF OR COOK.SKOBY Vomiting No 08/04/24 13:30 BROILER CHEF OR COOK.SKOBY Anesthesia Postop Eval I: Fluid Summary Crystalloid volume administer 10 08/04/24 13:30 BROILER CHEF OR COOK.SKOBY (ml) Colloids volume administered ( ml) Blood Product volume administered (ml) Total IV fluid infused 10 08/04/24 13:30 BROILER CHEF OR COOK.SKOBY Anesthesia Postop Eval I: Summary Notes Anesthesia Complication No 08/04/24 13:30 BROILER CHEF OR COOK.SKOBY Anesthesia Complication Comment: Post-operative progress note Anesthesia: Postop Eval II Evaluation Mental status: Awake and Calm Pain Level: 2 nausea: No Vomiting: No Complications Anesthesia Complication: No 08/04/24 1623 Date Brant Polanco MD Cosigner Signature: Date CC: Signed Normal [facility] Operative Reporton 4 Operative Report [facility] Medical Records Department [address] [place] [address] Operative Report 08/04/24 1322 MR#: [id number] Acct: [id number] Name: KADIE VILLALINE NOEL Rep #: [id number] : 1965 59 From: Lyn Slaughter DO PCP: Dr. Naomie Martini MD Status:[facility] Location: [place] [address] Problems Associated Problem List Diagnoses (1) Postmenopausal bleeding: (2) Cervical mass: Operative Report (Standard) Operative Information Surgery/Procedure Performed: hysteroscopy dilation and curettage, cervical biopsy and removal of cervical mass Surgeon: Lyn Slaughter Date of Procedure: 08/04/24 Procedure Start Time: 13:07 Procedure Stop Time: 13:20 Pre-Operative Diagnosis: cervical mass, postmenopausal bleeding Post-Operative Diagnosis: same as preop Select all DRAINS/GRAFTS/IMPLANTS that apply: None Type of Anesthesia: Local and MAC Estimated Blood Loss: 5cc Specimen collected: Yes Description of specimen(s) removed: endometrial curetting's (scant) and cervical biopsy Description of surgery: Patient was prepped and draped in a normal sterile fashion under MAC anesthesia. A weighted speculum was placed in the vagina and the anterior lip of the cervix was grasped with a single-tooth tenaculum. A paracervical block was placed with 1% lidocaine. Cervix was progressively dilated to allow passage of a 5 mm hysteroscope. The mass like structure seen in office previously appears tattered and torn with slightly bleeding edges and is firm. this does not appear to be polypoid and appears to be more consistent with a cervical fibroid. The lining was fully visualized and noted to be atrophic. Uterine sounded to 7 cm. Curettage was performed and scant tissue was, sent to pathology. The cervical mass was cut out using and 11 blade. Bovie cautery was used to create hemostasis. All instruments were removed from the vagina and excellent hemostasis was noted. Patient was awoken and taken to recovery in stable condition. 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 Naomie Martini MD; Dr. Lyn Slaughter DO Signed Normal [facility] Surgery Specimen Level Kristin 08-04-2024 Surgery Specimen Level IV Patient Age/Sex Location Account Attending Physician FELICITY VILLA 59/F [facility] [place] [id number] Jyoti Velasquez Specimen: [id number] Received: 08/04/24 Status: DARRIUS Lawler Num: [id number] Spec Type: CERV Subm Dr: Dr. Lyn Slaughter, DO HEADER OPERATION: Hysterectomy, D C, cervical biopsy PRE-OP DIAGNOSIS: Post menopausal bleeding, polyp at cervical os TISSUE SUBMITTED: A- Cervical biopsy, B- Endometrial curettings MICROSCOPIC DIAGNOSIS A. Cervix, biopsy: Minimal chronic inflammation. No evidence of dysplasia. See comment. B. Endometrium, curettings: Fragments of benign ectocervical and endocervical tissue with minimal chronic inflammation. No evidence of dysplasia. See comment. AM. 08/06/2024 COMMENT A,B . Immunohistochemistry ([id number]) for surrogate HPV marker (p16) supports the above diagnosis. MICROSCOPIC DESCRIPTION Slides are reviewed. GROSS DESCRIPTION A. Received in fixative is one container labeled with the patient's name and designated "Cervical biopsy." The specimen consists of a piece of harris indurated tissue measuring 1.1 x 0.6 x 0.3cm. This piece is bisected. Also present in the container are multiple fragments of harris soft tissue measuring in aggregate 0.5 x 0.5 x 0.1cm. The entire specimen is submitted in one cassette. B. Received in fixative is one container labeled with the patient's name and designated Endometrial currettings." The specimen consists of multiple irregular fragments of light harris soft tissue that in aggregate measure 1.0 x 0.5 x 0.1 cm. The specimen is totally submitted in one cassette. 08/05/2024 TC:3 CPT:13672h0 Patient Age/Sex Location Account Attending Physician FELICITY VILLA 59/F [facility] [place] [id number] Jyoti Velasquez Signed (signature on file) Dr. Gera Price DO 08/07/24 1009 Normal [facility] Comment on above: Performed By: #### P CRIS ####[facility] [id number] [place], [place], [address] Type AND Screen - PAT ONLYon 08-04-2024 ABO and Rh group Nom (Bld) Blood group A Rh(D) positive Normal [facility] Comment on above: Order Comment: Surge ry Date: 08/04/24 Reason for Laboratory Test PREOP [id number] No N N S HYSTEROSCOPY D C Performed By: #### L 100.0500, BTSPAT #### [facility] Laboratory [address] [place], [place], [address] Pelvic w/ Transvaginalon Pelvic w/ Transvaginal [facility] Imaging Services [address] [place], [place] [address] Pelvic w/ Transvaginal MR#: [id number] Acct: [id number] Name: FELICITY VILLA Rep #: [id number] : 1965 F 59 From: Robert carmichael MD PCP: Dr. Naomie Martini MD Status: REG CLI Study: Pelvic w/ Transvaginal Date of Exam: 07/16/24 Exam# [id number] Ordering Dr: [place] [id number] INDICATION: cervical mass -- postmenopausal bleeding EXAMINATION: Ultrasound US Pelvis Non OB Complete With Transvaginal Imaging TECHNIQUE: Transabdominal and transvaginal pelvic ultrasound was performed. Grayscale, spectral waveform, and color flow Doppler evaluation of the adnexa. COMPARISON: None. FINDINGS: UTERUS: Anteverted. The uterus measures 5.9 x 4.5 x 2.9 cm. There is no uterine mass. The endometrial stripe measures 17 mm in AP diameter which is thickened for postmenopausal patient. There are multiple nabothian cysts. Irregular appearance of the cervix without discrete mass. RIGHT OVARY: Measures 1.8 x 1.7 x 0.9 cm. Non-enlarged, normal echogenicity. There is normal arterial inflow and venous outflow present in the right ovary. LEFT OVARY: Measures 1.8 x 1.6 x 1 cm. Non-enlarged, normal echogenicity. There is normal arterial inflow and venous outflow present in the left ovary. FREE FLUID: None. US/Pelvic w/ Transvaginal IMPRESSION: Thickened endometrium in a postmenopausal patient. Differential includes polyp, endometrial hyperplasia or endometrial carcinoma. Consider pelvic MRI with and without contrast. Irregular appearance of the cervix without discrete mass. Consider pelvic MRI with and without contrast. Electronically Signed: Robert Edmond MD at 18:49 EDT ,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 [facility] Basophils/100 WBC (Bld) 0.7 % 0-1 [facility] Bilirubin [Mass/Vol] 0.60 mg/dL 0.20-1.00 [facility] Comment on above: For patients on eltr ombopag therapy, use of Dimension [place] TBIL is not recommended. Chloride [Moles/Vol] 100 mmol/L 98-107 [facility] Eosinophils/100 WBC (Bld) 6.2 % 0-5 [facility] Glucose [Mass/Vol] 113 mg/dL 74-106 [facility] Comment on above: Fasting Glucose resu lt from 100 to 125 mg/dL suggests IMPAIRED HOMEOSTASIS per A.D.A. criteria. Neutrophils (Bld) [#/Vol] 5.0 10*3/uL 2.0-7.7 [facility] Neutrophils/100 WBC (Bld) 60.7 % 47-70 [facility] Potassium [Moles/Vol] 4.3 mmol/L 3.5-5.1 [facility] Protein [Mass/Vol] 7.4 g/dL 6.4-8.2 [facility] Sodium [Moles/Vol] 135 mmol/L 136-145 [facility] WBC (Bld) [#/Vol] 8.2 10*3/uL 4.4-11.0 [facility] Blood erythrocytes count (nu mber/volume)Ordered By: Nithin العراقي on 04-22-2023 RBC (Bld) [#/Vol] 5.21 10*6/uL 4.2-5.4 [facility] Blood hemoglobin measurement (mass/volume)Ordered By: Nithin العراقي on 04-22-2023 Hemoglobin (Bld) [Mass/Vol] 15.2 g/dL 12.0-15.0 [facility] Blood lymphocytes/100 leukoc ytesOrdered By: Nithin العراقي on 04-22-2023 Lymphocytes/100 WBC (Bld) 23.8 % 19-41 [facility] Blood monocytes/100 leukocyt esOrdered By: Nithin العراقي on 04-22-2023 Monocytes/100 WBC (Bld) 8.2 % 0-10 [facility] Blood platelet mean volumeOr dered By: Nithin العراقي on 04-22-2023 Platelet mean volume (Bld) [Entitic vol] 11.7 fL 6.2-12.0 [facility] Culture, urineOrdered By: Breann العراقي on 04-22-2023 Bacteria identified Cx Nom (U) Culture exhibits no growth. [facility] Determination of erythrocyte mean corpuscular volume (MCV)Ordered By: Nithin العراقي on 04-22-2023 MCV (RBC) [Entitic vol] 81.6 fL 81-99 [facility] Hematocrit Auto (Bld) [Volum e fraction]Ordered By: Nithin العراقي on 04-22-2023 Hematocrit (Bld) [Volume fraction] 42.5 % 37-47 [facility] Laboratory - Chemistry and C hemistry - challengeOrdered By: Nithin العراقي on 04-22-2023 ALP [Catalytic activity/Vol] 78 U/L 45-117 [facility] ALT [Catalytic activity/Vol] 28 U/L 13-56 [facility] Amylase [Catalytic activity/Vol] 13 U/L 5-55 [facility] CO2 [Moles/Vol] 33.0 mmol/L 21.0-32.0 [facility] Globulin (S) [Mass/Vol] 3.5 g/dL 2.2-4.2 [facility] Lipase [Catalytic activity/Vol] 28 U/L 13-75 [facility] Comment on above: Please note:LIPASE r evised reference range effective 23. New Lipase methodology. Expected to produce lower values than the previous assay method. NEW Reference Range: 13 - 75 U/L Urea nitrogen/Creatinine [Mass ratio] 18.2 mg/mg 10-20 [facility] Laboratory - Chemistry and C hemistry - challengeon 04-22-2023 Bilirubin Ql (U) Negative [facility] Glucose Ql (U) Negative [facility] Ketones Ql (U) Negative [facility] pH (U) 6.5 [pH] [facility] Specific gravity (U) [Rel density] 1.010 [facility] Urobilinogen (U) [Mass/Vol] 0.6961485 mg/dL [facility] Laboratory - Hematology and Cell countsOrdered By: Nithin العراقي on 04-22-2023 Erythrocyte distribution width (RBC) [Entitic vol] 46.4 fL 35.1-43.9 [facility] Erythrocyte distribution width (RBC) [Ratio] 15.6 % 11.6-14.6 [facility] Immature granulocytes/100 WBC (Bld) 0.400 % 0.0-0.9 [facility] Comment on above: IG% - Immature Granu locytes (promyelocytes, myelocytes and metamyelocytes) > 1% indicates that a LEFT SHIFT is Present. MCH (RBC) [Entitic mass] 29.2 pg 27.0-32.0 [facility] Nucleated RBC/100 WBC (Bld) [Ratio] 0 % 0-5 [facility] Laboratory - Hematology and Cell countson 04-22-2023 Hemoglobin Ql (U) Negative [facility] Laboratory - Specimen inform ationon 04-22-2023 Clarity (U) Cloudy [facility] Color (U) YELLOW [facility] Laboratory - Urinalysison Nitrite Ql (U) Negative [facility] Protein Ql (U) Trace [facility] MCHC Auto (RBC) [Mass/Vol]Or dered By: Nithin العراقي on 04-22-2023 MCHC (RBC) [Mass/Vol] 35.8 g/dL 32-36 [facility] No Panel InformationOrdered By: Nithin العراقي on 04-22-2023 Estimated GFR (MDRD) Amer 108 mL/min >60 [facility] Comment on above: GFR Calc Estimated GFR (MDRD) Non-Af Amer 89 mL/min >60 [facility] Comment on above: Non- GFR Calc No Panel Informationon 04-22 Urine Leukocytes Negatve [facility] Platelets bldOrdered By: Oswaldo العراقي on 04-22-2023 Platelets (Bld) [#/Vol] 208 10*3/uL 150-450 [facility] Serum or plasma albumin walter urement (mass/volume)Ordered By: Nithin العراقي on 04-22-2023 Albumin [Mass/Vol] 3.9 g/dL 3.2-5.0 [facility] Serum or plasma albumin/glob ulin mass ratioOrdered By: Nithin العراقي on 04-22-2023 Albumin/Globulin [Mass ratio] 1.1 {ratio} 0.9-2.4 [facility] Serum or plasma calcium walter urement (mass/volume)Ordered By: Nithin العراقي on 04-22-2023 Calcium [Mass/Vol] 9.3 mg/dL 8.5-10.1 [facility] Serum or plasma creatinine m easurement (mass/volume)Ordered By: Nithin العراقي on 04-22-2023 Creatinine [Mass/Vol] 0.72 mg/dL 0.55-1.02 [facility] Comment on above: The validity of the calculated GFR & GFRAA in patients over 70 years has not been determined. Clinical correlation is essential. Serum or plasma urea nitroge n measurement (mass/volume)Ordered By: Nithin العراقي on 04-22-2023 Urea nitrogen [Mass/Vol] 13 mg/dL 7-18 [facility] Thin prep Papanicolaou smear with manual screeningOrdered By: Nithin العراقي on 04-22-2023 Thin prep Papanicolaou smear with manual screening 11 U/L 15-37 [facility] Thin prep Papanicolaou smear with manual screening 2 5-15 [facility] Basophil percentageOrdered B y: Dr. Martini on 03-15-2023 Bilirubin [Mass/Vol] 0.60 mg/dL 0.20-1.00 [facility] Comment on above: For patients on eltr ombopag therapy, use of Dimension [place] TBIL is not recommended. Chloride [Moles/Vol] 102 mmol/L 98-107 [facility] Cholesterol [Mass/Vol] 225 mg/dL <200 [facility] Comment on above: <200 mg/dL Desirable 200-240 mg/dL Borderline >240 mg/dL High Risk Glucose [Mass/Vol] 108 mg/dL 74-106 [facility] Comment on above: Fasting Glucose resu lt from 100 to 125 mg/dL suggests IMPAIRED HOMEOSTASIS per A.D.A. criteria. Potassium [Moles/Vol] 4.6 mmol/L 3.5-5.1 [facility] Protein [Mass/Vol] 7.1 g/dL 6.4-8.2 [facility] Sodium [Moles/Vol] 138 mmol/L 136-145 [facility] Triglyceride [Mass/Vol] 167 mg/dL <199 [facility] Comment on above: The drugs N-Acetylcy steine and Metamizole may falsely depress this assay.Serum Triglycerides Reference Interval Normal <150 mg/dL Borderline high 150 - 199 mg/dL High 200 - 499 mg/dL Very High > or = 500 mg/dL Laboratory - Chemistry and C hemistry - challengeOrdered By: Dr. Martini on 03-15-2023 ALP [Catalytic activity/Vol] 74 U/L 45-117 [facility] ALT [Catalytic activity/Vol] 23 U/L 13-56 [facility] CO2 [Moles/Vol] 33.0 mmol/L 21.0-32.0 [facility] Globulin (S) [Mass/Vol] 3.1 g/dL 2.2-4.2 [facility] Urea nitrogen/Creatinine [Mass ratio] 20.7 mg/mg 10-20 [facility] No Panel InformationOrdered By: Dr. Martini on 03-15-2023 Estimated GFR (MDRD) Amer 137 mL/min >60 [facility] Comment on above: GFR Calc Estimated GFR (MDRD) Non-Af Amer 113 mL/min >60 [facility] Comment on above: Non- GFR Calc Serum or plasma albumin walter urement (mass/volume)Ordered By: Dr. Martini on 03-15-2023 Albumin [Mass/Vol] 4.0 g/dL 3.2-5.0 [facility] Serum or plasma albumin/glob ulin mass ratioOrdered By: Dr. Martini on 03-15-2023 Albumin/Globulin [Mass ratio] 1.3 {ratio} 0.9-2.4 [facility] Serum or plasma calcium walter urement (mass/volume)Ordered By: Dr. Martini on 03-15-2023 Calcium [Mass/Vol] 9.6 mg/dL 8.5-10.1 [facility] Serum or plasma cholesterol in HDL measurement (mass/volume)Ordered By: Dr. Martini on 03-15-2023 Cholesterol in HDL [Mass/Vol] 59 mg/dL >40 [facility] Comment on above: The drugs N-Acetylcy steine and Metamizole may falsely depress this assay. Reference Range HDL <40 mg/dL Low HDL Cholesterol HDL >or= 60 mg/dL High HDL Cholesterol Serum or plasma cholesterol in VLDL measurement (mass/volume)Ordered By: Dr. Martini on 03-15-2023 Cholesterol in VLDL [Mass/Vol] 33 mg/dL 5-40 [facility] Serum or plasma creatinine m easurement (mass/volume)Ordered By: Dr. Martini on 03-15-2023 Creatinine [Mass/Vol] 0.58 mg/dL 0.55-1.02 [facility] Comment on above: The validity of the calculated GFR & GFRAA in patients over 70 years has not been determined. Clinical correlation is essential. Serum or plasma low density lipoprotein (LDL) cholesterol measurement (mass/volume)Ordered By: Dr. Martini on 03-15-2023 Cholesterol in LDL [Mass/Vol] 133 mg/dL 0-130 [facility] Serum or plasma urea nitroge n measurement (mass/volume)Ordered By: Dr. Martini on 03-15-2023 Urea nitrogen [Mass/Vol] 12 mg/dL 7-18 [facility] Thin prep Papanicolaou smear with manual screeningOrdered By: Dr. Martini on 03-15-2023 Thin prep Papanicolaou smear with manual screening 14 U/L 1537 [facility] Thin prep Papanicolaou smear with manual screening 3 5-15 [facility] Whole blood hemoglobin A1c/t otal hemoglobin ratio (mass fraction)Ordered By: Dr. Martini on 03-15-2023 HbA1c (Bld) [Mass fraction] 4.8 % 3.8-5.6 [facility] Comment on above: Normal < 5.7 % Predi abetic 5.7 - 6.4 % Diabetic >or= 6.5 % Please note range changes. Laboratory - Hematology and Cell countson 10-19-2022 HbA1c (Bld) [Mass fraction] 5.0 % 4.2-6.3 [facility] Absolute lymphocyte counton 07-10-2022 Lymphocytes Auto (Unsp spec) [#/Vol] 2.30 10*3/uL 0.83-4.51 [facility] Work Phone: Basophil percentageon 2021 Basophils/100 WBC (Bld) 0.5 % 0-1 [facility] Work Phone: Bilirubin [Mass/Vol] 0.60 mg/dL 0.20-1.00 [facility] Work Phone: Comment on above: For patients on eltr ombopag therapy, use of Dimension [place] TBIL is not recommended. Chloride [Moles/Vol] 102 mmol/L 98-107 [facility] Work Phone: Cholesterol [Mass/Vol] 201 mg/dL <200 [facility] Work Phone: Comment on above: <200 mg/dL Desirable 200-240 mg/dL Borderline >240 mg/dL High Risk Eosinophils/100 WBC (Bld) 5.2 % 0-5 [facility] Work Phone: Glucose [Mass/Vol] 108 mg/dL 74-106 [facility] Work Phone: Comment on above: Fasting Glucose resu lt from 100 to 125 mg/dL suggests IMPAIRED HOMEOSTASIS per A.D.A. criteria. Neutrophils (Bld) [#/Vol] 4.3 10*3/uL 2.0-7.7 [facility] Work Phone: Neutrophils/100 WBC (Bld) 54.9 % 47-70 [facility] Work Phone: Potassium [Moles/Vol] 4.8 mmol/L 3.5-5.1 [facility] Work Phone: Protein [Mass/Vol] 6.7 g/dL 6.4-8.2 [facility] Work Phone: Sodium [Moles/Vol] 138 mmol/L 136-145 [facility] Work Phone: Triglyceride [Mass/Vol] 208 mg/dL <199 [facility] Work Phone: Comment on above: The drugs N-Acetylcy steine and Metamizole may falsely depress this assay.Serum Triglycerides Reference Interval Normal <150 mg/dL Borderline high 150 - 199 mg/dL High 200 - 499 mg/dL Very High > or = 500 mg/dL WBC (Bld) [#/Vol] 7.7 10*3/uL 4.4-11.0 [facility] Work Phone: Blood erythrocytes count (nu mber/volume)on 07-10-2022 RBC (Bld) [#/Vol] 5.00 10*6/uL 4.2-5.4 [facility] Work Phone: Blood hemoglobin measurement (mass/volume)on 07-10-2022 Hemoglobin (Bld) [Mass/Vol] 14.5 g/dL 12.0-15.0 [facility] Work Phone: Blood lymphocytes/100 leukoc yteson 07-10-2022 Lymphocytes/100 WBC (Bld) 29.7 % 19-41 [facility] Work Phone: Blood monocytes/100 leukocyt eson 07-10-2022 Monocytes/100 WBC (Bld) 9.3 % 0-10 [facility] Work Phone: Blood platelet mean volumeon 07-10-2022 Platelet mean volume (Bld) [Entitic vol] 12.7 fL 6.2-12.0 [facility] Work Phone: Determination of erythrocyte mean corpuscular volume (MCV)on 07-10-2022 MCV (RBC) [Entitic vol] 81.8 fL 81-99 [facility] Work Phone: Hematocrit Auto (Bld) [Volum e fraction]on 07-10-2022 Hematocrit (Bld) [Volume fraction] 40.9 % 37-47 [facility] Work Phone: Laboratory - Chemistry and C hemistry - challengeon 07-10-2022 ALP [Catalytic activity/Vol] 72 U/L 45-117 [facility] Work Phone: ALT [Catalytic activity/Vol] 26 U/L 13-56 [facility] Work Phone: CO2 [Moles/Vol] 31.0 mmol/L 21.0-32.0 [facility] Work Phone: Globulin (S) [Mass/Vol] 2.9 g/dL 2.2-4.2 [facility] Work Phone: Urea nitrogen/Creatinine [Mass ratio] 19.1 mg/mg 10-20 [facility] Work Phone: Laboratory - Hematology and Cell countson 07-10-2022 Erythrocyte distribution width (RBC) [Entitic vol] 44.6 fL 35.1-43.9 [facility] Work Phone: Erythrocyte distribution width (RBC) [Ratio] 15.0 % 11.6-14.6 [facility] Work Phone: Immature granulocytes/100 WBC (Bld) 0.400 % 0.0-0.9 [facility] Work Phone: Comment on above: IG% - Immature Granu locytes (promyelocytes, myelocytes and metamyelocytes) > 1% indicates that a LEFT SHIFT is Present. MCH (RBC) [Entitic mass] 29.0 pg 27.0-32.0 [facility] Work Phone: Nucleated RBC/100 WBC (Bld) [Ratio] 0 % 0-5 [facility] Work Phone: MCHC Auto (RBC) [Mass/Vol]on 07-10-2022 MCHC (RBC) [Mass/Vol] 35.5 g/dL 32-36 [facility] Work Phone: No Panel Informationon 07-10 Estimated GFR (MDRD) Amer 105 mL/min >60 [facility] Work Phone: Comment on above: GFR Calc Estimated GFR (MDRD) Non-Af Amer 87 mL/min >60 [facility] Work Phone: Comment on above: Non- GFR Calc Platelets bldon 07-10-2022 Platelets (Bld) [#/Vol] 192 10*3/uL 150-450 [facility] Work Phone: Serum or plasma albumin walter urement (mass/volume)on 07-10-2022 Albumin [Mass/Vol] 3.8 g/dL 3.2-5.0 [facility] Work Phone: Serum or plasma albumin/glob ulin mass ratioon 07-10-2022 Albumin/Globulin [Mass ratio] 1.3 {ratio} 0.9-2.4 [facility] Work Phone: Serum or plasma calcium walter urement (mass/volume)on 07-10-2022 Calcium [Mass/Vol] 9.5 mg/dL 8.5-10.1 [facility] Work Phone: Serum or plasma cholesterol in HDL measurement (mass/volume)on 07-10-2022 Cholesterol in HDL [Mass/Vol] 54 mg/dL >40 [facility] Work Phone: Comment on above: The drugs N-Acetylcy steine and Metamizole may falsely depress this assay. Reference Range HDL <40 mg/dL Low HDL Cholesterol HDL >or= 60 mg/dL High HDL Cholesterol Serum or plasma cholesterol in VLDL measurement (mass/volume)on 07-10-2022 Cholesterol in VLDL [Mass/Vol] 42 mg/dL 5-40 [facility] Work Phone: Serum or plasma creatinine m easurement (mass/volume)on 07-10-2022 Creatinine [Mass/Vol] 0.73 mg/dL 0.55-1.02 [facility] Work Phone: Comment on above: The validity of the calculated GFR & GFRAA in patients over 70 years has not been determined. Clinical correlation is essential. Serum or plasma low density lipoprotein (LDL) cholesterol measurement (mass/volume)on 07-10-2022 Cholesterol in LDL [Mass/Vol] 105 mg/dL 0-130 [facility] Work Phone: Serum or plasma urea nitroge n measurement (mass/volume)on 07-10-2022 Urea nitrogen [Mass/Vol] 14 mg/dL 7-18 [facility] Work Phone: Thin prep Papanicolaou smear with manual screeningon 07-10-2022 Thin prep Papanicolaou smear with manual screening 14 U/L 15-37 [facility] Work Phone: Thin prep Papanicolaou smear with manual screening 5 5-15 [facility] Work Phone: Basophil percentageon 2021 Chloride [Moles/Vol] 100 mmol/L 98-107 [facility] Work Phone: Glucose [Mass/Vol] 98 mg/dL 74-106 [facility] Work Phone: Potassium [Moles/Vol] 4.4 mmol/L 3.5-5.1 [facility] Work Phone: Sodium [Moles/Vol] 136 mmol/L 136-145 [facility] Work Phone: Laboratory - Chemistry and C hemistry - challengeon 10-25-2021 CO2 [Moles/Vol] 32.0 mmol/L 21.0-32.0 [facility] Work Phone: Urea nitrogen/Creatinine [Mass ratio] 20.2 mg/mg 10-20 [facility] Work Phone: No Panel Informationon 10-25 Estimated GFR (MDRD) Amer 112 mL/min >60 [facility] Work Phone: Comment on above: GFR Calc Estimated GFR (MDRD) Non-Af Amer 93 mL/min >60 [facility] Work Phone: Comment on above: Non- GFR Calc Serum or plasma calcium walter urement (mass/volume)on 10-25-2021 Calcium [Mass/Vol] 9.5 mg/dL 8.5-10.1 [facility] Work Phone: Serum or plasma creatinine m easurement (mass/volume)on 10-25-2021 Creatinine [Mass/Vol] 0.69 mg/dL 0.55-1.02 [facility] Work Phone: Comment on above: The validity of the calculated GFR & GFRAA in patients over 70 years has not been determined. Clinical correlation is essential. Serum or plasma urea nitroge n measurement (mass/volume)on 10-25-2021 Urea nitrogen [Mass/Vol] 14 mg/dL 7-18 [facility] Work Phone: Thin prep Papanicolaou smear with manual screeningon 10-25-2021 Thin prep Papanicolaou smear with manual screening 4 5-15 [facility] Work Phone: URINE JOVANNY CULTURE-IDENTIFICA [place] ([id number])Ordered By: Nondestructive Tester on 06-17-2017 Bacteria identified Cx Nom (U) Escherichia coli Abnormal [facility] Work Phone: Comment on above: 50,000-100,000 colon y forming units per mL PATIENT NOT FASTINGP ERFORMED BY: Accu-Break PharmaceuticalsAtrium Health [id number] Information: SRC:UC Bacteria identified Cx Nom (U) Final report Abnormal [facility] Work Phone: Comment on above: PATIENT NOT FASTINGP ERFORMED BY: Al Detal70 StashMetricsAtrium Health [id number] Information: SRC:UC Other Antibiotic [Susc] MIHEAD Normal [facility] Work Phone: Comment on above: S = Susceptible; I = Intermediate; R = Resistant P = Positive; N = Negative MICS are expressed in micrograms per mL Antibiotic RSLT#1 RSLT#2 RSLT#3 RSLT#4Amoxicillin/Clavulanic Acid SAmpicillin SCefepime SCeftriaxone SCefuroxime SCephalothin ICiprofloxacin SErtapenem SGentamicin SImipenem SLevofloxacin SNitrofurantoin SPiperacillin STetracycline STobramycin STrimethoprim/Sulfa S PATIENT NOT FASTINGP ERFORMED BY: Dragon Tail70 StashMetricsAtrium Health [id number] Information: SRC:UC HPV automatic ([id number])Ordered By: Nondestructive Tester on 06-19-2016 HPV 16+18+31+33+35+39+45+ 51+52+56+58+59+68 DNA Probe+sig amp Ql (Cvx) Negative Normal [facility] Work Phone: Comment on above: This high-risk HPV t est detects thirteen high-risk types(16/18/31/33/35/39/45/51/52/56/58/59/68) without differentiation. . Source.............C ervix;EndocervixNo. of containers..01 CYTYC Thin Prep VialPATIENT NOT FASTINGPERFORMED BY: [facility] Uzkgowgmzk116 [facility] HospitalJ[facility] [id number] BY: =G [facility] Ymylfcdrgf595 [facility] HospitalJuan LuisLay[facility] Hospital [id number] Information: [id number] Microscopic observation Other stain Nom (Unsp spec) . Normal Comprehens [facility] Work Phone: Comment on above: Source.............C ervix;EndocervixNo. of containers..01 CYTYC Thin Prep VialPATIENT NOT FASTINGPERFORMED BY: [facility] Yehgfktklw695 [facility] HospitalJ[facility] LuisL[facility] Hospital [id number] BY: =G [facility] Rfhsgqmcww53595 Watson StreetNoreenPenn State Health [facility] [id number] Information: [id number] Pathology report final diagnosis Narrative SPRCS Normal [facility] Work Phone: Comment on above: NEGATIVE FOR INTRAEP ITHELIAL LESION AND MALIGNANCY.THIS SPECIMEN WAS RESCREENED PART OF OUR [employer]OVING DEPARTMENT SUPERVISOR PROGRAM.Satisfactory for evaluation. Endocervical and/or squamous metaplasticcells (endocervical component) are present.Z11.51Talib Meier, Arts And Crafts Instructor (ASCP)Hilda Bbo, Supervisory Arts And Crafts Instructor (ASCP) Source.............C ervix;EndocervixNo. of containers..01 CYTYC Thin Prep VialPATIENT NOT FASTINGPERFORMED BY: The Id[facility] ManThree [facility] Healthcare Echrteovzl94595 Watson StreetDomoniqueSelect Specialty Hospital - York [id number] BY: =G [facility] Lolzbqoqzk91695 Watson StreetNoreenPenn State Health [facility] [id number] Information: [id number] HPV automatic ([id number]) PAPSMR Normal [facility] prehensive [facility] Work Phone: Comment on [...] Thin Prep VialPATIENT NOT FASTINGPERFORMED BY: WB [employer] Mxgz[address]fdz[address] [id number] BY: =G [facility] Nnoyuvpcdg[address] [id number] Information: [id number] Urinalysis, Office ([id number])Or dered By: Lyn Conroy on 07-18-2015 Bilirubin [...] [facility] Work Phone: HPV automatic ([id number])Ordered By: Nondestructive Tester on 06-17-2015 HPV 16+18+31+33+35+39+45+ 51+52+56+58+59+68 DNA Probe+sig amp Ql (Cvx) Negative Normal [facility] Work Phone: Comment on above: This high-risk HPV t est detects thirteen high-risk types(16/18/31/33/35/39/45/51/52/56/58/59/68) without differentiation. . Source.............C ervical;EndocervicalNo. of containers..01 CYTYC Thin Prep VialPATIENT NOT FASTINGPERFORMED BY: LabCoSeeker-[employer]ries120 [address] DxzaHumounorleseast mountain hospital W [id number] BY: =G [facility] Qbqizfiycl625 [address] DxzaHumounorleseast mountain hospital [place] [id number] Information: [id number] Microscopic observation Other stain Nom (Unsp spec) . Normal Comprehens [facility] Work Phone: Comment on above: Source.............C ervical;EndocervicalNo. of containers..01 CYTYC Thin Prep VialPATIENT NOT FASTINGPERFORMED BY: Dooch[employer]120 StylendarAlgoregoeast mountain hospital W [id number] BY: =G LabCast Iron Systemsrp Uipbiqylrg984 [address] DxzaHumounorAlgoregoeast mountain hospital [place] [id number] Information: [id number] Pathology report final diagnosis Narrative [facility] Normal [facility] Work Phone: Comment on above: NEGATIVE FOR INTRAEP ITHELIAL LESION AND MALIGNANCY.Satisfactory for evaluation. Endocervical and/or squamous metaplasticcells (endocervical component) are present.V73.81 ; Special screening examination, human papillomavirus [HPV]Ferny Keyes, Arts And Crafts Instructor (ASCP) Source.............C ervical;EndocervicalNo. of containers..01 CYTYC Thin Prep VialPATIENT NOT FASTINGPERFORMED BY: LabFibroGenrAlgoregoeast mountain hospital W [id number] BY: =G [facility] Bfjssbwlmu[address] [id number] Information: [id number] HPV automatic ([id number]) PAPSMR Normal [facility] prehensive [facility] Work Phone: Comment on [...] Thin Prep VialPATIENT NOT FASTINGPERFORMED BY: WB [employer] [place] [address] [id number] BY: =G [employer] [place] [address] [id number] Information: [id number] HgA1C , Office ([id number])Ordere d By: Carmen Haque on 06-14-2014 HbA1c (Bld) [Mass fraction] 5.2 % Normal 4.6 - 7.1 [facility] Work Phone: Blood Glucose , Office ([phone])on 06-05-2012 Glucose Glucometer (BldC) [Moles/Vol] 113 1 Normal [facility] Work Phone: HgA1C , Office ([phone])on HbA1c (Bld) [Mass fraction] 5.1 % Normal 4.6 - 7.1 [facility] Work Phone: URINE JOVANNY [place]URE[place] ([id number])Ordered By: Nondestructive Tester on 05-02-2011 Bacteria identified Cx Nom (U) Final report Normal [facility] Work Phone: Comment on above: PATIENT NOT FASTINGP ERFORMED BY: JACKY [employer] Fdpqqx6303 [facility] [id number] Information: [id number] Bacteria identified Cx Nom (U) Escherichia coli Normal [facility] Work Phone: Comment on above: 25,000-50,000 colony forming units per mL PATIENT NOT FASTINGP ERFORMED BY: [facility] Dannma5504 [facility] [id number] Information: [id number] Other Antibiotic [Susc] MIHEAD Normal [facility] [...] STrimethoprim/Sulfa S PATIENT NOT FASTINGP ERFORMED BY: [facility] Tsinjn1665 [facility] [id number] Information: [id number] Urinalysis, Office ([phone])on 05-02-2011 Bilirubin Ql (U) Negative Normal Comprehe [...] [facility] Work Phone: Urinalysis, Office ([phone])on 04-19-2011 Bilirubin Ql (U) Negative Normal Comprehe [...] Time Vital Sign Value Performing Clinician Facility 01-04-2025 08:20-0400 Body temperature 98.4 [degF] Dr. Naomie Martini MD Work Phone: [facility] 01-04-2025 08:20-0400 Diastolic blood pressure 78 mm[Hg] Dr. Naomie Martini MD Work Phone: [facility] 01-04-2025 08:20-0400 Heart rate 78 /min Dr. Naomie Martini MD Work Phone: [facility] 01-04-2025 08:20-0400 SaO2% (BldA) [Mass fraction] 98 % Dr. Naomie Martini MD Work Phone: [facility] 01-04-2025 08:20-0400 Systolic blood pressure 120 mm[Hg] Dr. Naomie Martini MD Work Phone: [facility] 12-23-2024 08:44-0400 Body height 162.[address] Naomie Martini MD Work Phone: [facility] 12-23-2024 08:44-0400 Body mass index (BMI) [Ratio] 23.1 kg/m2 Dr. Naomie Martini MD Work Phone: [facility] 12-23-2024 08:44-0400 Body temperature 96.2 [degF] Dr. Naomie Martini MD Work Phone: [facility] 12-23-2024 08:44-0400 Body weight 61.[address] Naomie Martini MD Work Phone: [facility] 12-23-2024 08:44-0400 Diastolic blood pressure 60 mm[Hg] Dr. Naomie Martini MD Work Phone: [facility] 12-23-2024 08:44-0400 Heart rate 82 /min Dr. Naomie Martini MD Work Phone: [facility] 12-23-2024 08:44-0400 Respiratory rate 18 /min Dr. Naomie Martini MD Work Phone: [facility] 12-23-2024 08:44-0400 SaO2% (BldA) [Mass fraction] 98 % Dr. Naomie Martini MD Work Phone: [facility] 12-23-2024 08:44-0400 Systolic blood pressure 118 mm[Hg] Dr. Naomie Martini MD Work Phone: [facility] 03-11-2024 10:23-0400 Body height 162.6 cm Francisca Rivera MD Work Phone: [facility] 03-11-2024 10:23-0400 Body mass index (BMI) [Ratio] 22.31 kg/m2 Francisca Rivera MD Work Phone: [facility] 03-11-2024 10:23-0400 Body weight 58.97 kg Francisca Rivera MD Work Phone: [facility] 03-07-2024 09:46-0400 Body temperature 97.81 [degF] Krislyn Aberegg PA Work Phone: [facility] 03-07-2024 09:46-0400 Body weight 60.5 kg Krislyn Aberegg PA Work Phone: [facility] 03-07-2024 09:46-0400 Diastolic blood pressure 80 mm[Hg] Krislyn Aberegg PA Work Phone: [facility] 03-07-2024 09:46-0400 Heart rate 90 /min Krislyn Aberegg PA Work Phone: [facility] 03-07-2024 09:46-0400 Respiratory rate 20 /min Krislyn Aberegg PA Work Phone: [facility] 03-07-2024 09:46-0400 SaO2% (BldA) [Mass fraction] 99 % Krislyn Aberegg PA Work Phone: [facility] 03-07-2024 09:46-0400 Systolic blood pressure 132 mm[Hg] Krislyn Aberegg PA Work Phone: [facility] 02-28-2024 21:57-0400 Blood Pressure Location FÉLIX ROMAN MD [facility] 02-28-2024 21:57-0400 Blood Pressure Method FÉLIX ROMAN MD [facility] 02-28-2024 21:57-0400 Body height 162.6 cm FÉLIX ROMAN MD [facility] 02-28-2024 21:57-0400 Body temperature 97.16 [degF] FÉLIX ROMAN MD [facility] 02-28-2024 21:57-0400 Body weight 59.1 kg FÉLIX ROMAN MD [facility] 02-28-2024 21:57-0400 Diastolic Blood Pressure Non-Invasive 61 mm[Hg] FÉLIX ROMAN MD [facility] 02-28-2024 21:57-0400 Heart rate 79 /min FÉLIX ROMAN MD [facility] 02-28-2024 21:57-0400 Respiratory rate 16 /min FÉLIX ROMAN MD [facility] 02-28-2024 21:57-0400 Systolic Blood Pressure Non-Invasive 113 mm[Hg] FÉLIX ROMAN MD [facility] 04-24-2023 12:56-0400 Body height 160.[address] Naomie Martini Work Phone: [facility] 04-24-2023 12:56-0400 Body mass index (BMI) [Ratio] 23.3 kg/m2 Dr. Naomie Martini Work Phone: [facility] 04-24-2023 12:56-0400 Body temperature 98.4 [degF] Dr. Naomie Martini Work Phone: [facility] 04-24-2023 12:56-0400 Body weight 59.[address] Naomie Martini Work Phone: [facility] 04-24-2023 12:56-0400 Diastolic blood pressure 84 mm[Hg] Dr. Naomie Martini Work Phone: [facility] 04-24-2023 12:56-0400 Heart rate 82 /min Dr. Naomie Martini Work Phone: [facility] 04-24-2023 12:56-0400 Respiratory rate 16 /min Dr. Naomie Martini Work Phone: [facility] 04-24-2023 12:56-0400 SaO2% (BldA) [Mass fraction] 99 % Dr. Naomie Martini Work Phone: [facility] 04-24-2023 12:56-0400 Systolic blood pressure 110 mm[Hg] Dr. Naomie Martini Work Phone: [facility] 04-22-2023 08:08-0400 Body mass index (BMI) [Ratio] 23 kg/m2 Dr. Naomie Martini Work Phone: [facility] 04-22-2023 08:08-0400 Body temperature 98.6 [degF] Dr. Naomie Martini Work Phone: [facility] 04-22-2023 08:08-0400 Body weight 58.[address] Naomie Martini Work Phone: [facility] 04-22-2023 08:08-0400 Diastolic blood pressure 78 mm[Hg] Dr. Naomie Martini Work Phone: [facility] 04-22-2023 08:08-0400 Heart rate 87 /min Dr. Naomie Martini Work Phone: [facility] 04-22-2023 08:08-0400 Respiratory rate 16 /min Dr. Naomie Martini Work Phone: [facility] 04-22-2023 08:08-0400 SaO2% (BldA) [Mass fraction] 97 % Dr. Naomie Martini Work Phone: [facility] 04-22-2023 08:08-0400 Systolic blood pressure 118 mm[Hg] Dr. Naomie Martini Work Phone: [facility] 04-17-2023 08:15-0400 Body temperature 97.5 [degF] Dr. Naomie Martini Work Phone: [facility] 04-17-2023 08:15-0400 Diastolic blood pressure 72 mm[Hg] Dr. Naomie Martini Work Phone: [facility] 04-17-2023 08:15-0400 Heart rate 70 /min Dr. Naomie Martini Work Phone: [facility] 04-17-2023 08:15-0400 Respiratory rate 16 /min Dr. Naomie Martini Work Phone: [facility] 04-17-2023 08:15-0400 SaO2% (BldA) [Mass fraction] 97 % Dr. Naomie Martini Work Phone: [facility] 04-17-2023 08:15-0400 Systolic blood pressure 102 mm[Hg] Dr. Naomie Martini Work Phone: [facility] 04-17-2023 06:38-0400 Body mass index (BMI) [Ratio] 22.3 kg/m2 Dr. Naomie Martini Work Phone: [facility] 04-17-2023 06:38-0400 Body weight [address] Naomie Martini Work Phone: [facility] 04-04-2023 13:46-0400 Body temperature 97.9 [degF] Dr. Naomie Martini Work Phone: [facility] 04-04-2023 13:46-0400 Diastolic blood pressure 78 mm[Hg] Dr. Naomie Martini Work Phone: [facility] 04-04-2023 13:46-0400 Heart rate 66 /min Dr. Naomie Martini Work Phone: [facility] 04-04-2023 13:46-0400 Respiratory rate 17 /min Dr. Naomie Martini Work Phone: [facility] 04-04-2023 13:46-0400 SaO2% (BldA) [Mass fraction] 95 % Dr. Naomie Martini Work Phone: [facility] 04-04-2023 13:46-0400 Systolic blood pressure 115 mm[Hg] Dr. Naomie Martini Work Phone: [facility] 03-15-2023 08:25-0400 Body height 162.[address] Naomie Martini Work Phone: [facility] 03-15-2023 08:25-0400 Body mass index (BMI) [Ratio] 22.3 kg/m2 Dr. Naomie Martini Work Phone: [facility] 03-15-2023 08:25-0400 Body temperature 96.3 [degF] Dr. Naomie Martini Work Phone: [facility] 03-15-2023 08:25-0400 Body weight 59.[address] Naomie Martini Work Phone: [facility] 03-15-2023 08:25-0400 Diastolic blood pressure 76 mm[Hg] Dr. Naomie Martini Work Phone: [facility] 03-15-2023 08:25-0400 Heart rate 74 /min Dr. Naomie Martini Work Phone: [facility] 03-15-2023 08:25-0400 Respiratory rate 18 /min Dr. Naomie Martini Work Phone: [facility] 03-15-2023 08:25-0400 SaO2% (BldA) [Mass fraction] 98 % Dr. Naomie Martini Work Phone: [facility] 03-15-2023 08:25-0400 Systolic blood pressure 108 mm[Hg] Dr. Naomie Martini Work Phone: [facility] 01-22-2023 14:27-0400 Body height 162.[address] Naomie Martini Work Phone: [facility] [facility] 01-22-2023 14:27-0400 Body mass index (BMI) [Ratio] 22.8 kg/m2 Dr. Naomie Martini Work Phone: [facility] 01-22-2023 14:27-0400 Body temperature 98.8 [degF] Dr. Naomie Martini Work Phone: [facility] 01-22-2023 14:27-0400 Body weight 60.[address] Naomie Martini Work Phone: [facility] 01-22-2023 14:27-0400 Diastolic blood pressure 83 mm[Hg] Dr. Naomie Martini Work Phone: [facility] 01-22-2023 14:27-0400 Heart rate 89 /min Dr. Naomie Martini Work Phone: [facility] 01-22-2023 14:27-0400 Respiratory rate 16 /min Dr. Naomie Martini Work Phone: [facility] 01-22-2023 14:27-0400 SaO2% (BldA) [Mass fraction] 96 % Dr. Naomie Martini Work Phone: [facility] 01-22-2023 14:27-0400 Systolic blood pressure 125 mm[Hg] Dr. Naomie Maritni Work Phone: [facility] 10-19-2022 08:34-0500 Body mass index (BMI) [Ratio] 22.8 kg/m2 Dr. Naomie Martini Work Phone: [facility] 10-19-2022 08:34-0500 Body temperature 97.7 [degF] Dr. Naomie Martini Work Phone: [facility] 10-19-2022 08:34-0500 Body weight 60.[address] Naomie Martini Work Phone: [facility] 10-19-2022 08:34-0500 Diastolic blood pressure 76 mm[Hg] Dr. Naomie Martini Work Phone: [facility] 10-19-2022 08:34-0500 Heart rate 84 /min Dr. Naomie Martini Work Phone: [facility] 10-19-2022 08:34-0500 Respiratory rate 18 /min Dr. Naomie Martini Work Phone: [facility] 10-19-2022 08:34-0500 SaO2% (BldA) [Mass fraction] 97 % Dr. Naomie Martini Work Phone: [facility] 10-19-2022 08:34-0500 Systolic blood pressure 106 mm[Hg] Dr. Naomie Martini Work Phone: [facility] 07-17-2022 08:33-0400 Body height 162.[address] Naomie Martini Work Phone: [facility] Work Phone: 07-17-2022 08:33-0400 Body mass index (BMI) [Ratio] 23 kg/m2 Dr. Naomie Martini Work Phone: [facility] Work Phone: 07-17-2022 08:33-0400 Body temperature 98.3 [degF] Dr. Naomie Martini Work Phone: [facility] Work Phone: 07-17-2022 08:33-0400 Body weight 60.[address] Naomie Martini Work Phone: [facility] Work Phone: 07-17-2022 08:33-0400 Diastolic blood pressure 76 mm[Hg] Dr. Naomie Martini Work Phone: [facility] Work Phone: 07-17-2022 08:33-0400 Heart rate 72 /min Dr. Naomie Martini Work Phone: [facility] Work Phone: 07-17-2022 08:33-0400 Respiratory rate 14 /min Dr. Naomie Martini Work Phone: [facility] Work Phone: 07-17-2022 08:33-0400 SaO2% (BldA) [Mass fraction] 99 % Dr. Naomie Martini Work Phone: [facility] Work Phone: 07-17-2022 08:33-0400 Systolic blood pressure 114 mm[Hg] Dr. Naomie Martini Work Phone: [facility] Work Phone: 04-03-2022 08:04-0400 Body height 162.[address] Naomie Martini Work Phone: [facility] Work Phone: 04-03-2022 08:04-0400 Body mass index (BMI) [Ratio] 22.4 kg/m2 Dr. Naomie Martini Work Phone: [facility] Work Phone: 04-03-2022 08:04-0400 Body temperature 97.6 [degF] Dr. Naomie Martini Work Phone: [facility] Work Phone: 04-03-2022 08:04-0400 Body weight 59.[address] Naomie Martini Work Phone: [facility] Work Phone: 04-03-2022 08:04-0400 Diastolic blood pressure 78 mm[Hg] Dr. Naomie Martini Work Phone: [facility] Work Phone: 04-03-2022 08:04-0400 Heart rate 76 /min Dr. Naomie Martini Work Phone: [facility] Work Phone: 04-03-2022 08:04-0400 Respiratory rate 14 /min Dr. Naomie Martini Work Phone: [facility] Work Phone: 04-03-2022 08:04-0400 SaO2% (BldA) [Mass fraction] 99 % Dr. Naomie Martini Work Phone: [facility] Work Phone: 04-03-2022 08:04-0400 Systolic blood pressure 126 mm[Hg] Dr. Naomie Martini Work Phone: [facility] Work Phone: 12-19-2021 14:30-0400 Body height 162.[address] Naomie Martini Work Phone: [facility] Work Phone: 12-19-2021 14:30-0400 Body mass index (BMI) [Ratio] 22 kg/m2 Dr. Naomie Martini Work Phone: [facility] Work Phone: 12-19-2021 14:30-0400 Body temperature 98 [degF] Dr. Naomie Martini Work Phone: [facility] Work Phone: 12-19-2021 14:30-0400 Body weight 58.[address] Naomie Martini Work Phone: [facility] Work Phone: 12-19-2021 14:30-0400 Diastolic blood pressure 77 mm[Hg] Dr. Naomie Martini Work Phone: [facility] Work Phone: 12-19-2021 14:30-0400 Heart rate 98 /min Dr. Naomie Martini Work Phone: [facility] Work Phone: 12-19-2021 14:30-0400 Respiratory rate 16 /min Dr. Naomie Martini Work Phone: [facility] Work Phone: 12-19-2021 14:30-0400 SaO2% (BldA) [Mass fraction] 97 % Dr. Naomie Martini Work Phone: [facility] Work Phone: 12-19-2021 14:30-0400 Systolic blood pressure 121 mm[Hg] Dr. Naomie Martini Work Phone: [facility] Work Phone: 10-25-2021 08:12-0500 Body mass index (BMI) [Ratio] 21.9 kg/m2 Dr. Naomie Martini Work Phone: [facility] Work Phone: 10-25-2021 08:12-0500 Body temperature 98.4 [degF] Dr. Naomie Martini Work Phone: [facility] Work Phone: 10-25-2021 08:12-0500 Body weight 58.[address] Naomie Martini Work Phone: [facility] Work Phone: 10-25-2021 08:12-0500 Diastolic blood pressure 88 mm[Hg] Dr. Naomie Martini Work Phone: [facility] Work Phone: 10-25-2021 08:12-0500 Heart rate 86 /min Dr. Naomie Martini Work Phone: [facility] Work Phone: 10-25-2021 08:12-0500 Respiratory rate 14 /min Dr. Naomie Martini Work Phone: [facility] Work Phone: 10-25-2021 08:12-0500 SaO2% (BldA) [Mass fraction] 99 % Dr. Naomie Martini Work Phone: [facility] Work Phone: 10-25-2021 08:12-0500 Systolic blood pressure 128 mm[Hg] Dr. Naomie Martini Work Phone: [facility] Work Phone: 10-27-2020 08:29-0500 BMI (Body Mass Index) 22.74 kg/m2 Noelle Bowden [facility]; [facility] Work Phone: 10-27-2020 08:29-0500 Body Temperature 97.8 [degF] Noelle Bowden [facility]; [facility] Work Phone: Comment on above: Method: Temporal 10-27-2020 08:29-0500 Body weight 60.1 kg Noelle Bowden [facility]; [facility] Work Phone: 10-27-2020 08:29-0500 BP Diastolic 86 mm[Hg] Noelle Bowden [facility]; [facility] Work Phone: Comment on above: Patient Position: Sitting; Cuff Location : Left Arm; Cuff Size: Standard 10-27-2020 08:29-0500 BP Systolic 118 mm[Hg] Noelle Bowden [facility]; [facility] Work Phone: Comment on above: Patient Position: Sitting; Cuff Location : Left Arm; Cuff Size: Standard 10-27-2020 08:29-0500 BSA (Body Surface Area) 1.64 m2 Noelle Bowden [facility]; [facility] Work Phone: 10-27-2020 08:29-0500 Height 162.56 cm Noelle Bowden [facility]; [facility] Work Phone: 10-27-2020 08:29-0500 Pulse (Heart Rate) 82 /min Noelle Bowden [facility]; [facility] Work Phone: Comment on above: Pattern: Regular 10-27-2020 08:29-0500 Pulse Oximetry 97 % Noelle Bowden [facility]; [facility] Work Phone: Comment on above: Room air 10-27-2020 08:29-0500 Respiratory Rate 16 /min Noelle Bowden [facility]; [facility] Work Phone: Comment on above: Pattern: Unlabored 07-29-2019 12:07-0500 BMI (Body Mass Index) 21.86 kg/m2 Noelle Bowden [facility] Work Phone: 07-29-2019 12:07-0500 Body Temperature 97.2 [degF] Noelle Bowden [facility] Work Phone: Comment on above: Method: Temporal 07-29-2019 12:07-0500 Body weight 57.78 kg Noelle Bowden [facility] Work Phone: 07-29-2019 12:07-0500 BP Diastolic 68 mm[Hg] Noelle Bowden [facility] Work Phone: Comment on above: Patient Position: Sitting; Cuff Location : Left Arm; Cuff Size: Standard 07-29-2019 12:07-0500 BP Systolic 98 mm[Hg] Noelle Bowden [facility] Work Phone: Comment on above: Patient Position: Sitting; Cuff Location : Left Arm; Cuff Size: Standard 07-29-2019 12:07-0500 BSA (Body Surface Area) 1.61 m2 Noelle Bowden [facility] Work Phone: 07-29-2019 12:07-0500 Height 162.56 cm Noelle Bowden [facility] Work Phone: 07-29-2019 12:07-0500 Pulse (Heart Rate) 82 /min Noelle Bowden [facility] Work Phone: Comment on above: Pattern: Regular 07-29-2019 12:07-0500 Pulse Oximetry 98 % Noelle Bowden [facility] Work Phone: Comment on above: Room air 07-29-2019 12:07-0500 Respiratory Rate 16 /min Noelle Bowden [facility] Work Phone: Comment on above: Pattern: Unlabored 06-08-2019 11:21-0400 BMI (Body Mass Index) 21.35 kg/m2 Noelle Bowden [facility] Work Phone: 06-08-2019 11:21-0400 Body Temperature 98.2 [degF] Noelle Bowden [facility] Work Phone: Comment on above: Method: Temporal 06-08-2019 11:21-0400 Body weight 56.42 kg Noelle Bowden [facility] Work Phone: 06-08-2019 11:21-0400 BP Diastolic 72 mm[Hg] Noelle Bowden [facility] Work Phone: Comment on above: Patient Position: Sitting; Cuff Location : Left Arm; Cuff Size: Standard 06-08-2019 11:21-0400 BP Systolic 124 mm[Hg] Noelle Bowden [facility] Work Phone: Comment on above: Patient Position: Sitting; Cuff Location : Left Arm; Cuff Size: Standard 06-08-2019 11:21-0400 BSA (Body Surface Area) 1.6 m2 Noelle Bowden [facility] Work Phone: 06-08-2019 11:21-0400 Height 162.56 cm Noelle Bowden [facility] Work Phone: 06-08-2019 11:21-0400 Pulse (Heart Rate) 86 /min Noelle Bowden [facility] Work Phone: Comment on above: Pattern: Regular 06-08-2019 11:21-0400 Pulse Oximetry 97 % Noelle Bowden [facility] Work Phone: Comment on above: Room air 06-08-2019 11:21-0400 Respiratory Rate 16 /min Noelle Bowden [facility] Work Phone: Comment on above: Pattern: Unlabored 08-12-2018 12:21-0500 BMI (Body Mass Index) 21.48 kg/m2 Noelle Bowden [facility] Internal [facility] Work Phone: 08-12-2018 12:21-0500 Body weight 56.76 kg Noelle Bowden [facility] Work Phone: 08-12-2018 12:21-0500 BP Diastolic 68 mm[Hg] Noelle Bowden [facility] Work Phone: Comment on above: Patient Position: Sitting; Cuff Location : Left Arm; Cuff Size: Standard 08-12-2018 12:21-0500 BP Systolic 110 mm[Hg] Noelle Bowden [facility] Work Phone: Comment on above: Patient Position: Sitting; Cuff Location : Left Arm; Cuff Size: Standard 08-12-2018 12:21-0500 BSA (Body Surface Area) 1.6 m2 Noelle Bowden [facility] Work Phone: 08-12-2018 12:21-0500 Height 162.56 cm Noelle Bowden [facility] Work Phone: 08-12-2018 12:21-0500 Pulse (Heart Rate) 81 /min Noelle Bowden [facility] Work Phone: Comment on above: Pattern: Regular 08-12-2018 12:21-0500 Pulse Oximetry 97 % Noelle Bowden [facility] Work Phone: Comment on above: Room air 08-12-2018 12:21-0500 Respiratory Rate 18 /min Noelle Bowden [facility] Work Phone: Comment on above: Pattern: Unlabored 06-13-2018 09:23-0400 BMI (Body Mass Index) 21.37 kg/m2 Noelle Wilkes [facility] Internal Medicine Work Phone: 06-13-2018 09:23-0400 Body Temperature 98.8 [degF] Noelle Bowden [facility] Work Phone: Comment on above: Method: Temporal 06-13-2018 09:23-0400 Body weight 56.47 kg Noelle Bowden [facility] Work Phone: 06-13-2018 09:23-0400 BP Diastolic 82 mm[Hg] Noelle Bowden [facility] Work Phone: Comment on above: Patient Position: Sitting; Cuff Location : Left Arm; Cuff Size: Standard 06-13-2018 09:23-0400 BP Systolic 134 mm[Hg] Noelle Bowden [facility] Work Phone: Comment on above: Patient Position: Sitting; Cuff Location : Left Arm; Cuff Size: Standard 06-13-2018 09:23-0400 BSA (Body Surface Area) 1.6 m2 Noelle Bowden [facility] Work Phone: 06-13-2018 09:23-0400 Height 162.56 cm Noelle Bowden [facility] Work Phone: 06-13-2018 09:23-0400 Pulse (Heart Rate) 79 /min Noelle Bowden [facility] Work Phone: Comment on above: Pattern: Regular 06-13-2018 09:23-0400 Pulse Oximetry 99 % Noelle Bowden [facility] Work Phone: Comment on above: Room air 06-13-2018 09:23-0400 Respiratory Rate 16 /min Noelle Bowden [facility] Work Phone: Comment on above: Pattern: Unlabored 06-05-2018 10:18-0400 BMI (Body Mass Index) 20.77 kg/m2 Noelle Wilkes [facility] Internal Medicine Work Phone: 06-05-2018 10:18-0400 Body Temperature 98.5 [degF] Noelle Bowden [facility] Work Phone: Comment on above: Method: Temporal 06-05-2018 10:180400 Body weight 54.89 kg Noelle Bowden [facility] Work Phone: 06-05-2018 10:18-0400 BP Diastolic 78 mm[Hg] Noelle Bowden [facility] Work Phone: Comment on above: Patient Position: Sitting; Cuff Location : Left Arm; Cuff Size: Standard 06-05-2018 10:18-0400 BP Systolic 116 mm[Hg] Noelle Bowden [facility] Work Phone: Comment on above: Patient Position: Sitting; Cuff Location : Left Arm; Cuff Size: Standard 06-05-2018 10:180400 BSA (Body Surface Area) 1.58 m2 Noelle Bowden [facility] Work Phone: 06-05-2018 10:18-0400 Height 162.56 cm Noelle Bowden [facility] Work Phone: 06-05-2018 10:18-0400 Pulse (Heart Rate) 79 /min Noelle Bowden [facility] Work Phone: Comment on above: Pattern: Regular 06-05-2018 10:18-0400 Pulse Oximetry 98 % Noelle Bowden [facility] Work Phone: Comment on above: Room air 06-05-2018 10:18-0400 Respiratory Rate 16 /min Noelle Bowden [facility] Work Phone: Comment on above: Pattern: Unlabored 06-17-2017 11:27-0400 BMI (Body Mass Index) 20.86 kg/m2 Noelle Bowden [facility] Work Phone: 06-17-2017 11:27-0400 Body weight 55.11 kg Noelle Bowden [facility] Work Phone: 06-17-2017 11:27-0400 BP Diastolic 80 mm[Hg] Noelle Bowden [facility] Work Phone: Comment on above: Patient Position: Sitting; Cuff Location : Left Arm; Cuff Size: Standard 06-17-2017 11:27-0400 BP Systolic 120 mm[Hg] Noelle Bowden [facility] Work Phone: Comment on above: Patient Position: Sitting; Cuff Location : Left Arm; Cuff Size: Standard 06-17-2017 11:27-0400 BSA (Body Surface Area) 1.58 m2 Noelle Bowden [facility] Work Phone: 06-17-2017 11:27-0400 Height 162.56 cm Noelle Bowden [facility] Work Phone: 06-17-2017 11:27-0400 Pulse (Heart Rate) 70 /min Noelle Bowden [facility] Work Phone: Comment on above: Pattern: Regular 06-17-2017 11:27-0400 Pulse Oximetry 98 % Noelle Bowden [facility] Work Phone: Comment on above: Room air 06-17-2017 11:27-0400 Respiratory Rate 18 /min Noelle Bowden [facility] Work Phone: Comment on above: Pattern: Unlabored 01-17-2017 13:33-0400 BMI (Body Mass Index) 20.98 kg/m2 Noelle Bowden [facility] Work Phone: 01-17-2017 13:33-0400 Body weight 55.45 kg Noelle Bowden [facility] Work Phone: 01-17-2017 13:33-0400 BP Diastolic 76 mm[Hg] Noelle Bowden [facility] Work Phone: Comment on above: Patient Position: Sitting; Cuff Location : Left Arm; Cuff Size: Standard 01-17-2017 13:33-0400 BP Systolic 118 mm[Hg] Noelle Bowden [facility] Work Phone: Comment on above: Patient Position: Sitting; Cuff Location : Left Arm; Cuff Size: Standard 01-17-2017 13:33-0400 BSA (Body Surface Area) 1.59 m2 Noelle Bowden [facility] Work Phone: 01-17-2017 13:33-0400 Height 162.56 cm Noelle Bowden [facility] Work Phone: 01-17-2017 13:33-0400 Pulse (Heart Rate) 98 /min Noelle Bowden [facility] Work Phone: Comment on above: Pattern: Regular 01-17-2017 13:33-0400 Pulse Oximetry 98 % Noelle Bowden [facility] Work Phone: Comment on above: Room air 01-17-2017 13:33-0400 Respiratory Rate 18 /min Noelle Bowden [facility] Work Phone: Comment on above: Pattern: Unlabored 10-29-2016 09:15-0500 BMI (Body Mass Index) 21.11 kg/m2 Noelle Bowden [facility] Work Phone: 10-29-2016 09:15-0500 Body Temperature 98.4 [degF] Noelle Bowden [facility] Work Phone: Comment on above: Method: Temporal 10-29-2016 09:15-0500 Body weight 55.79 kg Noelle Bowden [facility] Work Phone: 10-29-2016 09:15-0500 BP Diastolic 82 mm[Hg] Noelle Bowden [facility] Work Phone: Comment on above: Patient Position: Sitting; Cuff Location : Left Arm; Cuff Size: Standard 10-29-2016 09:15-0500 BP Systolic 116 mm[Hg] Noelle Bowden [facility] Work Phone: Comment on above: Patient Position: Sitting; Cuff Location : Left Arm; Cuff Size: Standard 10-29-2016 09:15-0500 BSA (Body Surface Area) 1.59 m2 Noelle Bowden [facility] Work Phone: 10-29-2016 09:15-0500 Height 162.56 cm Noelle Bowden [facility] Work Phone: 10-29-2016 09:15-0500 Pulse (Heart Rate) 96 /min Noelle Bowden [facility] Work Phone: Comment on above: Pattern: Regular 10-29-2016 09:15-0500 Pulse Oximetry 98 % Noelle Bowden [facility] Work Phone: Comment on above: Room air 10-29-2016 09:15-0500 Respiratory Rate 16 /min Noelle Bowden [facility] Work Phone: Comment on above: Pattern: Unlabored 06-18-2016 11:12-0400 BMI (Body Mass Index) 20.81 kg/m2 Noelle Bowden [facility] Work Phone: 06-18-2016 11:12-0400 Body weight 55 kg Noelle Bowden [facility] Work Phone: 06-18-2016 11:12-0400 BP Diastolic 78 mm[Hg] Noelle Bowden [facility] Work Phone: Comment on above: Patient Position: Sitting; Cuff Location : Left Arm; Cuff Size: Standard 06-18-2016 11:12-0400 BP Systolic 118 mm[Hg] Noelle Bowden [facility] Work Phone: Comment on above: Patient Position: Sitting; Cuff Location : Left Arm; Cuff Size: Standard 06-18-2016 11:12-0400 BSA (Body Surface Area) 1.58 m2 Noelle Bodwen [facility] Work Phone: 06-18-2016 11:12-0400 Height 162.56 cm Noelle Bowden [facility] Work Phone: 06-18-2016 11:12-0400 Pulse (Heart Rate) 84 /min Noelle Bowden [facility] Work Phone: Comment on above: Pattern: Regular 06-18-2016 11:12-0400 Pulse Oximetry 99 % Noelle Bowden [facility] Work Phone: Comment on above: Room air 06-18-2016 11:12-0400 Respiratory Rate 18 /min Noelle Bowden [facility] Work Phone: Comment on above: Pattern: Unlabored 02-09-2016 09:37-0400 BMI (Body Mass Index) 20.47 kg/m2 Noelle Wilkes [facility] Internal Medicine Work Phone: 02-09-2016 09:37-0400 Body weight 54.09 kg Noelle Bowden [facility] Work Phone: 02-09-2016 09:37-0400 BP Diastolic 80 mm[Hg] Noelle Bowden [facility] Work Phone: Comment on above: Patient Position: Sitting; Cuff Location : Left Arm; Cuff Size: Standard 02-09-2016 09:37-0400 BP Systolic 120 mm[Hg] Noelle Bowden [facility] Work Phone: Comment on above: Patient Position: Sitting; Cuff Location : Left Arm; Cuff Size: Standard 02-09-2016 09:37-0400 BSA (Body Surface Area) 1.57 m2 Noelle Bowden [facility] Work Phone: 02-09-2016 09:37-0400 Height 162.56 cm Noelle Bowden [facility] Work Phone: 02-09-2016 09:37-0400 Pulse (Heart Rate) 68 /min Noelle Bowden [facility] Work Phone: Comment on above: Pattern: Regular 02-09-2016 09:37-0400 Pulse Oximetry 98 % Noelle Bowden [facility] Work Phone: Comment on above: Room air 02-09-2016 09:37-0400 Respiratory Rate 18 /min Noelle Bowden [facility] Work Phone: Comment on above: Pattern: Unlabored 12-28-2015 09:13-0400 BMI (Body Mass Index) 20.94 kg/m2 Noelle Wilkes [facility] Internal Medicine Work Phone: 12-28-2015 09:13-0400 Body Temperature 97.4 [degF] Noelle Bowdne [facility] Work Phone: 12-28-2015 09:13-0400 Body weight 55.34 kg Noelle Bowden [facility] Work Phone: 12-28-2015 09:13-0400 BP Diastolic 80 mm[Hg] Noelle Bowden [facility] Work Phone: Comment on above: Patient Position: Sitting; Cuff Location : Left Arm; Cuff Size: Standard 12-28-2015 09:13-0400 BP Systolic 116 mm[Hg] Noelle Bowden [facility] Work Phone: Comment on above: Patient Position: Sitting; Cuff Location : Left Arm; Cuff Size: Standard 12-28-2015 09:13-0400 BSA (Body Surface Area) 1.59 m2 Noelle Bowden [facility] Work Phone: 12-28-2015 09:13-0400 Height 162.56 cm Noelle Bowden [facility] Work Phone: 12-28-2015 09:13-0400 Pulse (Heart Rate) 82 /min Noelle Bowden [facility] Work Phone: Comment on above: Pattern: Regular 12-28-2015 09:13-0400 Pulse Oximetry 99 % Noelle Bowden [facility] Work Phone: Comment on above: Room air 12-28-2015 09:13-0400 Respiratory Rate 14 /min Noelle Bowden [facility] Internal Medicine Work Phone: Comment on above: Pattern: Unlabored 10-03-2015 15:49-0500 BMI (Body Mass Index) 20.94 kg/m2 Noelle Bowden [facility] Internal Medicine Work Phone: 10-03-2015 15:49-0500 Body Temperature 98.9 [degF] Noelle Bowden [facility] Internal Medicine Work Phone: Comment on above: Method: Temporal 10-03-2015 15:49-0500 Body weight 55.34 kg Noelle Bowden [facility] Internal Medicine Work Phone: 10-03-2015 15:49-0500 BP Diastolic 66 mm[Hg] Noelle Bowden [facility] Internal Medicine Work Phone: Comment on above: Patient Position: Sitting; Cuff Location : Left Arm; Cuff Size: Standard 10-03-2015 15:49-0500 BP Systolic 104 mm[Hg] Noelle Bowden [facility] Internal Medicine Work Phone: Comment on above: Patient Position: Sitting; Cuff Location : Left Arm; Cuff Size: Standard 10-03-2015 15:49-0500 BSA (Body Surface Area) 1.59 m2 Noelle Bowden [facility] Internal Medicine Work Phone: 10-03-2015 15:49-0500 Height 162.56 cm Noelle Bowden [facility] Internal Medicine Work Phone: 10-03-2015 15:49-0500 Pulse (Heart Rate) 76 /min Noelle Bowden [facility] Internal Medicine Work Phone: Comment on above: Pattern: Regular 10-03-2015 15:49-0500 Pulse Oximetry 96 % Noelle Bowden [facility] Internal Medicine Work Phone: Comment on above: Room air 10-03-2015 15:49-0500 Respiratory Rate 16 /min Noelle Bowden [facility] Internal Medicine Work Phone: Comment on above: Pattern: Unlabored 08-29-2015 10:06-0500 BMI (Body Mass Index) 20.77 kg/m2 Noelle Bowden [facility] Internal Medicine Work Phone: 08-29-2015 10:06-0500 Body Temperature 98.9 [degF] Noelle Bowden [facility] Internal Medicine Work Phone: Comment on above: Method: Temporal 08-29-2015 10:06-0500 Body weight 54.89 kg Noelle Bowden [facility] Internal Medicine Work Phone: 08-29-2015 10:06-0500 BP Diastolic 64 mm[Hg] Noelle Bowden [facility] Internal Medicine Work Phone: Comment on above: Patient Position: Sitting; Cuff Location : Left Arm; Cuff Size: Standard 08-29-2015 10:06-0500 BP Systolic 102 mm[Hg] [facility]: Comment on above: Patient Position: Sitting; Cuff Location : Left Arm; Cuff Size: Standard 08-29-2015 10:06-0500 BSA (Body Surface Area) 1.58 m2 Neolle Bowden [facility] Internal Medicine Work Phone: 08-29-2015 10:06-0500 Height 162.56 cm Noelle Bowden [facility] Internal Medicine Work Phone: 08-29-2015 10:06-0500 Pulse (Heart Rate) 85 /min Noelle Bowden [facility] Internal Medicine Work Phone: Comment on above: Pattern: Regular 08-29-2015 10:06-0500 Pulse Oximetry 98 % Noelle Bowden [facility] Internal Medicine Work Phone: Comment on above: Room air 08-29-2015 10:06-0500 Respiratory Rate 16 /min Noelle Bowden [facility] Internal Medicine Work Phone: Comment on above: Pattern: Unlabored 07-18-2015 09:59-0400 BMI (Body Mass Index) 20.94 kg/m2 Noelle Bowden [facility] Internal Medicine Work Phone: 07-18-2015 09:59-0400 Body Temperature 98.3 [degF] Nolele Bowden [facility] Internal Medicine Work Phone: Comment on above: Method: Temporal 07-18-2015 09:59-0400 Body weight 55.34 kg Noelle Bowden [facility] Internal Medicine Work Phone: 07-18-2015 09:59-0400 BP Diastolic 92 mm[Hg] Noelle Bowden [facility] Internal Medicine Work Phone: Comment on above: Patient Position: Sitting; Cuff Location : Left Arm; Cuff Size: Standard 07-18-2015 09:59-0400 BP Systolic 140 mm[Hg] Noelle Bowden [facility] Internal Medicine Work Phone: Comment on above: Patient Position: Sitting; Cuff Location : Left Arm; Cuff Size: Standard 07-18-2015 09:59-0400 BSA (Body Surface Area) 1.59 m2 Noelle Bowden [facility] Internal Medicine Work Phone: 07-18-2015 09:59-0400 Height 162.56 cm Noelle Bowden [facility] Internal Medicine Work Phone: 07-18-2015 09:59-0400 Pulse (Heart Rate) 92 /min Noelle Bowden [facility] Internal Medicine Work Phone: Comment on above: Pattern: Regular 07-18-2015 09:59-0400 Pulse Oximetry 98 % Noelle Bowden [facility] Internal Medicine Work Phone: Comment on above: Room air 07-18-2015 09:59-0400 Respiratory Rate 16 /min Noelle Bowden [facility] Internal Medicine Work Phone: Comment on above: Pattern: Unlabored 07-01-2015 11:13-0400 BMI (Body Mass Index) 20.8 kg/m2 Noelle Bowden [facility] Internal Medicine Work Phone: 07-01-2015 11:13-0400 Body Temperature 98.7 [degF] Noelle Bowden [facility] Internal Medicine Work Phone: Comment on above: Method: Temporal 07-01-2015 11:13-0400 Body weight 54.98 kg Noelle Bowden [facility] Internal Medicine Work Phone: 07-01-2015 11:13-0400 BP Diastolic 76 mm[Hg] Noelle Bowden [facility] Internal Medicine Work Phone: Comment on above: Patient Position: Sitting; Cuff Location : Left Arm; Cuff Size: Standard 07-01-2015 11:13-0400 BP Systolic 118 mm[Hg] Noelle Bowden [facility] Internal Medicine Work Phone: Comment on above: Patient Position: Sitting; Cuff Location : Left Arm; Cuff Size: Standard 07-01-2015 11:13-0400 BSA (Body Surface Area) 1.58 m2 Noelle Bowden [facility] Internal Medicine Work Phone: 07-01-2015 11:13-0400 Height 162.56 cm Noelle Bowden [facility] Internal Medicine Work Phone: 07-01-2015 11:13-0400 Pulse (Heart Rate) 71 /min Noelle Bowden [facility] Internal Medicine Work Phone: Comment on above: Pattern: Regular 07-01-2015 11:13-0400 Pulse Oximetry 98 % Noelle Bowden [facility] Internal Medicine Work Phone: Comment on above: Room air 07-01-2015 11:13-0400 Respiratory Rate 16 /min Noelle Bowden [facility] Internal Medicine Work Phone: Comment on above: Pattern: Unlabored 06-17-2015 09:24-0400 BMI (Body Mass Index) 20.94 kg/m2 Noelle Bowden [facility] Internal Medicine Work Phone: 06-17-2015 09:24-0400 Body Temperature 98.1 [degF] oNelle Bowden [facility] Internal Medicine Work Phone: Comment on above: Method: Temporal 06-17-2015 09:24-0400 Body weight 55.34 kg Noelle Bowden [facility] Internal Medicine Work Phone: 06-17-2015 09:24-0400 BP Diastolic 74 mm[Hg] Noelle Bowden [facility] Internal Medicine Work Phone: Comment on above: Patient Position: Sitting; Cuff Location : Left Arm; Cuff Size: Standard 06-17-2015 09:24-0400 BP Systolic 118 mm[Hg] Noelle Bowden [facility] Internal Medicine Work Phone: Comment on above: Patient Position: Sitting; Cuff Location : Left Arm; Cuff Size: Standard 06-17-2015 09:24-0400 BSA (Body Surface Area) 1.59 m2 Noelle Bowden [facility] Internal Medicine Work Phone: 06-17-2015 09:24-0400 Height 162.56 cm Noelle Bowden [facility] Internal Medicine Work Phone: 06-17-2015 09:24-0400 Pulse (Heart Rate) 64 /min Noelle Bowden [facility] Internal Medicine Work Phone: Comment on above: Pattern: Regular 06-17-2015 09:24-0400 Respiratory Rate 15 /min Noelle Bowden [facility] Internal Medicine Work Phone: Comment on above: Pattern: Unlabored 06-14-2014 13:11-0400 BMI (Body Mass Index) 21.63 kg/m2 Noelle Wilkes [facility] Internal Medicine Work Phone: 06-14-2014 13:11-0400 Body Temperature 97 [degF] Noelle Bowden [facility] Internal Medicine Work Phone: Comment on above: Method: Temporal 06-14-2014 13:0400 Body weight 57.15 kg Noelle Bowden [facility] Internal Medicine Work Phone: 06-14-2014 13:11-0400 BP Diastolic 66 mm[Hg] Noelle Bowden [facility] Internal Medicine Work Phone: Comment on above: Patient Position: Sitting; Cuff Location : Left Arm; Cuff Size: Standard 06-14-2014 13:0400 BP Systolic 116 mm[Hg] Noelle Bowden [facility] Internal Medicine Work Phone: Comment on above: Patient Position: Sitting; Cuff Location : Left Arm; Cuff Size: Standard 06-14-2014 13:0400 BSA (Body Surface Area) 1.61 m2 Noelle Bowden [facility] Internal Medicine Work Phone: 06-14-2014 13:0400 Height 162.56 cm Noelle Bowden [facility] Internal Medicine Work Phone: 06-14-2014 13:11-0400 Pulse (Heart Rate) 94 /min Noelle Bowden [facility] Internal Medicine Work Phone: Comment on above: Pattern: Regular 06-14-2014 13:11-0400 Pulse Oximetry 99 % Noelle Bowden [facility] Internal Medicine Work Phone: Comment on above: Room air 06-14-2014 13:11-0400 Respiratory Rate 17 /min Noelle Bowden [facility] Internal Medicine Work Phone: Comment on above: Pattern: Unlabored 12-30-2013 14:25-0400 BMI (Body Mass Index) 21.14 kg/m2 Noelle Wilkes [facility] Internal Medicine Work Phone: 12-30-2013 14:25-0400 Body Temperature 97 [degF] Noelle Bowden [facility] Internal Medicine Work Phone: Comment on above: Method: Oral 12-30-2013 14:250400 Body weight 55.88 kg Noelle Bowden [facility] Internal Medicine Work Phone: 12-30-2013 14:25-0400 BP Diastolic 64 mm[Hg] Noelle Bowden [facility] Internal Medicine Work Phone: Comment on above: Patient Position: Sitting; Cuff Location : Left Arm; Cuff Size: Standard 12-30-2013 14:25-0400 BP Systolic 102 mm[Hg] Noelle Bowden [facility] Internal Medicine Work Phone: Comment on above: Patient Position: Sitting; Cuff Location : Left Arm; Cuff Size: Standard 12-30-2013 14:25-0400 BSA (Body Surface Area) 1.59 m2 Noelle Bowden [facility] Internal Medicine Work Phone: 12-30-2013 14:25-0400 Height 162.56 cm Noelle Bowden [facility] Internal Medicine Work Phone: 12-30-2013 14:25-0400 Pulse (Heart Rate) 68 /min Noelle Bowden [facility] Internal Medicine Work Phone: Comment on above: Pattern: Regular 12-30-2013 14:25-0400 Pulse Oximetry 97 % Noelle Bowden [facility] Internal Medicine Work Phone: Comment on above: Room air 12-30-2013 14:25-0400 Respiratory Rate 18 /min Noelle Bowden [facility] Internal Medicine Work Phone: Comment on above: Pattern: Unlabored 06-15-2013 11:23-0400 BMI (Body Mass Index) 21.2 kg/m2 Noelle Bowden [facility] Internal Medicine Work Phone: 06-15-2013 11:23-0400 Body Temperature 98.9 [degF] Noelle Bowden [facility] Internal Medicine Work Phone: Comment on above: Method: Oral 06-15-2013 11:23-0400 Body weight 56.02 kg Noelle Bowden [facility] Internal Medicine Work Phone: 06-15-2013 11:23-0400 BP Diastolic 68 mm[Hg] Noelle Bowden [facility] Internal Medicine Work Phone: Comment on above: Patient Position: Sitting; Cuff Location : Left Arm; Cuff Size: Standard 06-15-2013 11:23-0400 BP Systolic 118 mm[Hg] Noelle Bowden [facility] Internal Medicine Work Phone: Comment on above: Patient Position: Sitting; Cuff Location : Left Arm; Cuff Size: Standard 06-15-2013 11:23-0400 BSA (Body Surface Area) 1.59 m2 Noelle Bowden [facility] Internal Medicine Work Phone: 06-15-2013 11:23-0400 Height 162.56 cm Noelle Bowden [facility] Internal Medicine Work Phone: 06-15-2013 11:23-0400 Pulse (Heart Rate) 79 /min Noelle Bowden [facility] Internal Medicine Work Phone: Comment on above: Pattern: Regular 06-15-2013 11:23-0400 Pulse Oximetry 94 % Noelle Bowden [facility] Internal Medicine Work Phone: Comment on above: Room air 06-15-2013 11:23-0400 Respiratory Rate 18 /min Noelle Bowden [facility] Internal Medicine Work Phone: Comment on above: Pattern: Unlabored 08-22-2012 08:19-0500 BMI (Body Mass Index) 21.71 kg/m2 Noelle Bowden [facility] Internal Medicine Work Phone: 08-22-2012 08:19-0500 Body Temperature 98.3 [degF] Noelle Bowden [facility] Internal Medicine Work Phone: Comment on above: Method: Oral 08-22-2012 08:19-0500 Body weight 57.38 kg Noelle Bowden [facility] Internal Medicine Work Phone: 08-22-2012 08:19-0500 BP Diastolic 80 mm[Hg] [facility] Work [facility]: Comment on above: Patient Position: Sitting; Cuff Location : Left Arm; Cuff Size: Large 08-22-2012 08:19-0500 BP Systolic 136 mm[Hg] Noelle Bowden [facility] Internal Medicine Work Phone: Comment on above: Patient Position: Sitting; Cuff Location : Left Arm; Cuff Size: Large 08-22-2012 08:19-0500 BSA (Body Surface Area) 1.61 m2 Noelle Bowden [facility] Internal Medicine Work Phone: 08-22-2012 08:19-0500 Height 162.56 cm Noelle Bowden [facility] Internal Medicine Work Phone: 08-22-2012 08:19-0500 Pulse (Heart Rate) 64 /min Noelle Bowden [facility] Internal Medicine Work Phone: Comment on above: Pattern: Regular 08-22-2012 08:19-0500 Respiratory Rate 16 /min Noelle Bowden [facility] Internal Medicine Work Phone: Comment on above: Pattern: Unlabored 07-24-2012 08:53-0400 BMI (Body Mass Index) 21.47 kg/m2 Noelle Bowden [facility] Internal Medicine Work Phone: 07-24-2012 08:53-0400 Body Temperature 98.1 [degF] Noelle Bowden [facility] Internal Medicine Work Phone: Comment on above: Method: Oral 07-24-2012 08:53-0400 Body weight 56.73 kg Noelle Bowden [facility] Internal Medicine Work Phone: 07-24-2012 08:53-0400 BP Diastolic 62 mm[Hg] Noelle Bowden [facility] Internal Medicine Work Phone: Comment on above: Patient Position: Sitting; Cuff Location : Left Arm; Cuff Size: Standard 07-24-2012 08:53-0400 BP Systolic 124 mm[Hg] Noelle Bowden [facility] Internal Medicine Work Phone: Comment on above: Patient Position: Sitting; Cuff Location : Left Arm; Cuff Size: Standard 07-24-2012 08:53-0400 BSA (Body Surface Area) 1.6 m2 Noelle Bowden [facility] Internal Medicine Work Phone: 07-24-2012 08:53-0400 Height 162.56 cm Noelle Bowden [facility] Internal Medicine Work Phone: 07-24-2012 08:53-0400 Pulse (Heart Rate) 60 /min Noelle Bowden [facility] Internal Medicine Work Phone: Comment on above: Pattern: Regular 07-24-2012 08:53-0400 Respiratory Rate 16 /min Noelle Bowden [facility] Internal Medicine Work Phone: Comment on above: Pattern: Unlabored 06-25-2012 12:07-0400 BMI (Body Mass Index) 20.98 kg/m2 Noelle Bowden [facility] Internal Medicine Work Phone: 06-25-2012 12:07-0400 Body Temperature 98.1 [degF] Noelle Bowden [facility] Internal Medicine Work Phone: Comment on above: Method: Oral 06-25-2012 12:07-0400 Body weight 55.45 kg Noelle Bowden [facility] Internal Medicine Work Phone: 06-25-2012 12:07-0400 BP Diastolic 70 mm[Hg] Noelle Bowden [facility] Internal Medicine Work Phone: Comment on above: Patient Position: Sitting; Cuff Location : Left Arm; Cuff Size: Standard 06-25-2012 12:07-0400 BP Systolic 122 mm[Hg] Noelle Bowden [facility] Internal Medicine Work Phone: Comment on above: Patient Position: Sitting; Cuff Location : Left Arm; Cuff Size: Standard 06-25-2012 12:07-0400 BSA (Body Surface Area) 1.59 m2 Noelle Bowden [facility] Internal Medicine Work Phone: 06-25-2012 12:07-0400 Height 162.56 cm Noelle Bowden [facility] Internal Medicine Work Phone: 06-25-2012 12:07-0400 Pulse (Heart Rate) 64 /min Noelle Bowden [facility] Internal Medicine Work Phone: Comment on above: Pattern: Regular 06-25-2012 12:07-0400 Respiratory Rate 20 /min Noelle Bowden [facility] Internal Medicine Work Phone: Comment on above: Pattern: Unlabored 06-05-2012 09:08-0400 BMI (Body Mass Index) 20.98 kg/m2 [facility] Work Phone: 06-05-2012 09:08-0400 Body Temperature 98.7 [degF] Noelle Bowden [facility] Internal Medicine Work Phone: Comment on above: Method: Oral 06-05-2012 09:08-0400 Body weight 55.45 kg Noelle Bowden [facility] Internal Medicine Work Phone: 06-05-2012 09:08-0400 BP Diastolic 70 mm[Hg] Noelle Bowden [facility] Internal Medicine Work Phone: Comment on above: Patient Position: Sitting; Cuff Location : Left Arm; Cuff Size: Large 06-05-2012 09:08-0400 BP Systolic 102 mm[Hg] Noelle Bowden [facility] Internal Medicine Work Phone: Comment on above: Patient Position: Sitting; Cuff Location : Left Arm; Cuff Size: Large 06-05-2012 09:08-0400 BSA (Body Surface Area) 1.59 m2 Noelle Bowden [facility] Internal Medicine Work Phone: 06-05-2012 09:08-0400 Height 162.56 cm Noelle Bowden [facility] Internal Medicine Work Phone: 06-05-2012 09:08-0400 Pulse (Heart Rate) 64 /min Noelle Bowden [facility] Internal Medicine Work Phone: Comment on above: Pattern: Regular 06-05-2012 09:08-0400 Respiratory Rate 18 /min Noelle Bowden [facility] Internal Medicine Work Phone: Comment on above: Pattern: Unlabored 08-07-2011 10:28-0500 BMI (Body Mass Index) 19.96 kg/m2 Noelle Bowden [facility] Internal Medicine Work Phone: 08-07-2011 10:28-0500 Body Temperature 97.5 [degF] Noelle Bowden [facility] Internal Medicine Work Phone: Comment on above: Method: Oral 08-07-2011 10:28-0500 Body weight 52.76 kg Noelle Bowden [facility] Internal Medicine Work Phone: 08-07-2011 10:28-0500 BP Diastolic 76 mm[Hg] Noelle Bowden [facility] Internal Medicine Work Phone: Comment on above: Patient Position: Sitting; Cuff Location : Left Arm; Cuff Size: Standard 08-07-2011 10:28-0500 BP Systolic 118 mm[Hg] Noelle Bowden [facility] Internal Medicine Work Phone: Comment on above: Patient Position: Sitting; Cuff Location : Left Arm; Cuff Size: Standard 08-07-2011 10:28-0500 BSA (Body Surface Area) 1.55 m2 Noelle Bowden [facility] Internal Medicine Work Phone: 08-07-2011 10:28-0500 Height 162.56 cm Noelle Bowden [facility] Internal Medicine Work Phone: 08-07-2011 10:28-0500 Pulse (Heart Rate) 78 /min Noelle Bowden [facility] Internal Medicine Work Phone: Comment on above: Pattern: Regular 08-07-2011 10:28-0500 Pulse Oximetry 98 % Noelle Bowden [facility] Internal Medicine Work Phone: Comment on above: Room air 05-24-2011 09:43-0400 BMI (Body Mass Index) 19.96 kg/m2 Noelle Bowden [facility] Internal Medicine Work Phone: 05-24-2011 09:43-0400 Body weight 52.76 kg Noelle Bowden [facility] Internal Medicine Work Phone: 05-24-2011 09:43-0400 BP Diastolic 80 mm[Hg] Noelle Bowden [facility] Internal Medicine Work Phone: Comment on above: Patient Position: Sitting; Cuff Location : Left Arm; Cuff Size: Standard 05-24-2011 09:43-0400 BP Systolic 120 mm[Hg] Noelle Bowden [facility] Internal Medicine Work Phone: Comment on above: Patient Position: Sitting; Cuff Location : Left Arm; Cuff Size: Standard 05-24-2011 09:43-0400 BSA (Body Surface Area) 1.55 m2 Noelle Bowden [facility] Internal Medicine Work Phone: 05-24-2011 09:43-0400 Height 162.56 cm [facility] Work Phone: 05-24-2011 09:43-0400 Pulse (Heart Rate) 68 /min Noelle Bowden [facility] Internal Medicine Work Phone: Comment on above: Pattern: Regular 05-24-2011 09:43-0400 Respiratory Rate 20 /min Noelle Bowden [facility] Internal Medicine Work Phone: Comment on above: Pattern: Unlabored 05-02-2011 10:59-0400 BMI (Body Mass Index) 20 kg/m2 Noelle Bowden [facility] Internal Medicine Work Phone: 05-02-2011 10:59-0400 Body weight 52.84 kg Noelle Bowden [facility] Internal Medicine Work Phone: 05-02-2011 10:59-0400 BP Diastolic 68 mm[Hg] Noelle Bowden [facility] Internal Medicine Work Phone: Comment on above: Patient Position: Sitting; Cuff Location : Left Arm; Cuff Size: Standard 05-02-2011 10:59-0400 BP Systolic 110 mm[Hg] Noelle Bowden [facility] Internal Medicine Work Phone: Comment on above: Patient Position: Sitting; Cuff Location : Left Arm; Cuff Size: Standard 05-02-2011 10:59-0400 BSA (Body Surface Area) 1.55 m2 Noelle Bowden [facility] Internal Medicine Work Phone: 05-02-2011 10:59-0400 Height 162.56 cm Noelle Bowden [facility] Internal Medicine Work Phone: 05-02-2011 10:59-0400 Pulse (Heart Rate) 60 /min [facility] Work [facility]: Comment on above: Pattern: Regular 05-02-2011 10:59-0400 Respiratory Rate 18 /min Noelle Bowden [facility] Internal Medicine Work Phone: Comment on above: Pattern: Unlabored 04-19-2011 14:40-0400 BMI (Body Mass Index) 20.77 kg/m2 Noelle Wilkes [facility] Internal Medicine Work Phone: 04-19-2011 14:40-0400 Body weight 54.89 kg Noelle Bowden [facility] Internal Medicine Work Phone: 04-19-2011 14:40-0400 BP Diastolic 70 mm[Hg] Noelle Bowden [facility] Internal Medicine Work Phone: Comment on above: Patient Position: Sitting; Cuff Location : Left Arm; Cuff Size: Standard 04-19-2011 14:40-0400 BP Systolic 122 mm[Hg] Noelle Bowden [facility] Internal Medicine Work Phone: Comment on above: Patient Position: Sitting; Cuff Location : Left Arm; Cuff Size: Standard 04-19-2011 14:40-0400 BSA (Body Surface Area) 1.58 m2 Noelle Bowden [facility] Internal Medicine Work Phone: 04-19-2011 14:40-0400 Height 162.56 cm Noelle Bowden [facility] Internal Medicine Work Phone: 04-19-2011 14:40-0400 Pulse (Heart Rate) 60 /min Noelle Bowden [facility] Internal Medicine Work Phone: Comment on above: Pattern: Regular 04-19-2011 14:40-0400 Respiratory Rate 18 /min Noelle Bowden [facility] Internal Medicine Work Phone: Comment on above: Pattern: Unlabored 11-16-2009 08:45-0500 BMI (Body Mass Index) 20.77 kg/m2 Noelle Wil[facility] Internal Medicine Work Phone: 11-16-2009 08:45-0500 Body weight 54.89 kg Noelle Bowden [facility] Internal Medicine Work Phone: 11-16-2009 08:45-0500 BP Diastolic 80 mm[Hg] Noelle Bowden [facility] Internal Medicine Work Phone: Comment on above: Patient Position: Sitting; Cuff Location : Left Arm; Cuff Size: Large 11-16-2009 08:45-0500 BP Systolic 118 mm[Hg] Noelle Bowden [facility] Internal Medicine Work Phone: Comment on above: Patient Position: Sitting; Cuff Location : Left Arm; Cuff Size: Large 11-16-2009 08:45-0500 BSA (Body Surface Area) 1.58 m2 Noelle Bowden [facility] Internal Medicine Work Phone: 11-16-2009 08:45-0500 Height 162.56 cm Noelle Bowden [facility] Internal Medicine Work Phone: 11-16-2009 08:45-0500 Pulse (Heart Rate) 64 /min Noelle Bowden [facility] Internal Medicine Work Phone: Comment on above: Pattern: Regular 11-16-2009 08:45-0500 Respiratory Rate 20 /min Noelle Bowden [facility] Internal Medicine Work Phone: Comment on above: Pattern: Unlabored 10-17-2009 11:51-0500 BMI (Body Mass Index) 20.77 kg/m2 Noelle Bowden [facility] Internal Medicine Work Phone: 10-17-2009 11:51-0500 Body weight 54.89 kg Noelle Bowden [facility] Internal Medicine Work Phone: 10-17-2009 11:51-0500 BP Diastolic 76 mm[Hg] Noelle Bowden [facility] Internal Medicine Work Phone: Comment on above: Patient Position: Sitting; Cuff Location : Left Arm; Cuff Size: Large 10-17-2009 11:51-0500 BP Systolic 108 mm[Hg] Noelle Bowden [facility] Internal Medicine Work Phone: Comment on above: Patient Position: Sitting; Cuff Location : Left Arm; Cuff Size: Large 10-17-2009 11:51-0500 BSA (Body Surface Area) 1.58 m2 Noelle Bowden [facility] Work Phone: 10-17-2009 11:51-0500 Height 162.56 cm Noelle Bowden [facility] Medicine Work Phone: 10-17-2009 11:51-0500 Pulse (Heart Rate) 60 /min Noelle Bowden [facility] Work Phone: Comment on above: Pattern: Regular 10-17-2009 11:51-0500 Pulse Oximetry 98 % Noelle Bowden [facility] Work Phone: Comment on above: Room air 10-17-2009 11:51-0500 Respiratory Rate 18 /min Noelle Bowden [facility] Work Phone: Comment on above: Pattern: Unlabored 10-03-2009 15:34-0500 Body Temperature 97.5 [degF] Noelle Bowden [facility] Work Phone: 10-03-2009 15:34-0500 BP Diastolic 64 mm[Hg] Noelle Bowden [facility] Work Phone: Comment on above: Patient Position: Sitting; Cuff Location : Left Arm; Cuff Size: Standard 10-03-2009 15:34-0500 BP Systolic 104 mm[Hg] Noelle Bowden [facility] Work Phone: Comment on above: Patient Position: Sitting; Cuff Location : Left Arm; Cuff Size: Standard 10-03-2009 15:34-0500 Pulse (Heart Rate) 76 /min Noelle Bowden [facility] Work Phone: Comment on above: Pattern: Regular 10-03-2009 15:34-0500 Respiratory Rate 16 /min Noelle Bowden [facility] Work Phone: Comment on above: Pattern: Unlabored 12-17-2007 10:47-0400 BMI (Body Mass Index) 20.77 kg/m2 Noelle Bowden [facility] Internal Medicine Work Phone: 12-17-2007 10:47-0400 Body weight 54.89 kg Noelle Bowden [facility] Work Phone: 12-17-2007 10:47-0400 BP Diastolic 80 mm[Hg] Noelle Bowden [facility] Work Phone: Comment on above: Patient Position: Sitting; Cuff Location : Left Arm; Cuff Size: Standard 12-17-2007 10:47-0400 BP Systolic 128 mm[Hg] Noelle Bowden [facility] Work Phone: Comment on above: Patient Position: Sitting; Cuff Location : Left Arm; Cuff Size: Standard 12-17-2007 10:47-0400 BSA (Body Surface Area) 1.58 m2 Noelle Bowden [facility] Work Phone: 12-17-2007 10:47-0400 Head Circumference 0 cm Noelle Bowden [facility] Work Phone: 12-17-2007 10:47-0400 Height 162.56 cm Noelle Bowden [facility] Work Phone: 12-17-2007 10:47-0400 Pulse (Heart Rate) 80 /min Noelle Bowden [facility] Work Phone: Comment on above: Pattern: Regular 12-17-2007 10:47-0400 Respiratory Rate 16 /min Noelle Bowden [facility] Work Phone: Comment on above: Pattern: Unlabored 11-24-2007 11:47-0500 BMI (Body Mass Index) 20.96 kg/m2 Noelle Bowden [facility] Internal Medicine Work Phone: 11-24-2007 11:47-0500 Body weight 55.4 kg Noelle Bowden [facility] Work Phone: 11-24-2007 11:47-0500 BP Diastolic 76 mm[Hg] Noelle Bowden [facility] Work Phone: Comment on above: Patient Position: Sitting; Cuff Location : Left Arm; Cuff Size: Standard 11-24-2007 11:47-0500 BP Systolic 112 mm[Hg] Noelle Bowden [facility] Work Phone: Comment on above: Patient Position: Sitting; Cuff Location : Left Arm; Cuff Size: Standard 11-24-2007 11:47-0500 BSA (Body Surface Area) 1.59 m2 Noelle Bowden [facility] Work Phone: 11-24-2007 11:47-0500 Head Circumference 0 cm Noelle Bowden [facility] Work Phone: 11-24-2007 11:47-0500 Height 162.56 cm Noelle Bowden [facility] Work Phone: 11-24-2007 11:47-0500 Pulse (Heart Rate) 80 /min Noelle Bowden [facility] Work Phone: Comment on above: Pattern: Regular 11-24-2007 11:47-0500 Respiratory Rate 20 /min Noelle Bowden [facility] Work Phone: Comment on above: Pattern: Unlabored 03-17-2007 09:53-0400 Body Temperature 97.8 [degF] Noelle Bowden [facility] Work Phone: Comment on above: Method: Oral 03-17-2007 09:53-0400 Body weight 53.52 kg Noelle Bowden [facility] Work Phone: 03-17-2007 09:53-0400 BP Diastolic 78 mm[Hg] Noelle Bowden [facility] Work Phone: Comment on above: Patient Position: Sitting; Cuff Location : Right Arm; Cuff Size: Standard 03-17-2007 09:53-0400 BP Systolic 120 mm[Hg] Noelle Bowden [facility] Work Phone: Comment on above: Patient Position: Sitting; Cuff Location : Right Arm; Cuff Size: Standard 03-17-2007 09:53-0400 Head Circumference 0 cm Noelle Bowden [facility] Work Phone: 03-17-2007 09:53-0400 Height 0 cm Noelle Bowden [facility] Work Phone: 03-17-2007 09:53-0400 Pulse (Heart Rate) 60 /min Noelle Bowden [facility] Work Phone: Comment on above: Pattern: Regular 03-17-2007 09:53-0400 Respiratory Rate 16 /min Noelle Bowden [facility] Work Phone: Comment on above: Pattern: Unlabored Encounters Encounter Date Encounter Type Care Provider Facility Start: 01-04-2025 End: 01-04-2025 Patient encounter procedure Ignacio Hernandez [place] -[facility] Work Phone: Start: 01-04-2025 End: 01-04-2025 ambulatory Efrobertmarymayela Pavancaritoe Facility:[facility] Start: 12-30-2024 End: 12-30-[address] Naomie Martini MD Work Phone: [facility] Work Phone: Start: 12-30-2024 End: 12-30-[address] Naomie Martini MD -Laboratory, [place] Start: 12-30-2024 End: 12-30-2024 ambulatory [facility] Facility:[facility] Start: 12-23-2024 End: 12-23-[address] Naomie Martini MD -[place] Work Phone: Start: 12-23-2024 End: 12-23-2024 ambulatory Efrobertongbe Jarrode Facility:[facility] Start: 09-02-2024 End: 09-02-2024 [facility] Start: 08-27-2024 Encounter for other preprocedural examination Lyn Slaughter [facility] Start: 08-18-2024 End: 08-18-2024 [facility] Start: 08-17-2024 [facility] Start: 08-10-2024 End: 08-10-2024 [facility] Start: 08-10-2024 End: 08-10-2024 ambulatory [facility] Start: 08-04-2024 End: 08-04-2024 ambulatory Lyn Rigoberto Merlos Facility:[facility] Start: 07-16-2024 End: 07-16-2024 ambulatory Lyn Slaughter Facility:[facility] Start: 07-13-2024 End: 07-13-2024 ambulatory Lyn Slaughter Facility:[facility] Start: 06-17-2024 End: 06-17-2024 ambulatory Katie Eid Facility:[facility] Start: 06-17-2024 End: 06-17-2024 ambulatory [facility] Facility:[facility] Start: 04-30-2024 End: 04-30-2024 ambulatory Naomie Martini Facility:[facility] Start: 04-27-2024 End: 07-24-2024 ambulatory FRANCISCA RIVERA MD Facility:[facility] Start: 04-27-2024 End: 07-24-2024 Physical therapy management FRANCISCA RIVERA MD [facility] Start: 04-22-2024 End: 04-22-2024 Orders Only Francisca [...] Start: 03-25-2024 End: 03-25-2024 ambulatory JUDD SANDOVAL Facility:[facility] Start: 03-25-2024 End: 03-25-2024 Subsequent hospital visit by physician Judd Sandoval PA-C Work Phone: Radiology Comment on above: Other closed fractur e of shaft of left fibula, initial encounter [S82.492A] Start: 03-25-2024 End: 03-25-2024 ambulatory Christophermayela Pavandionna Facility:[facility] Start: 03-11-2024 End: 03-11-2024 Patient encounter procedure Francisca Rivera MD Work Phone: Orthopedics Comment on above: Other closed fractur e of shaft of left fibula, initial encounter Start: 03-11-2024 End: 03-11-2024 ambulatory FRANCISCA RIVERA Facility:[facility] Start: 03-11-2024 End: 03-11-2024 Subsequent hospital visit by physician [facility] Comment on above: Other closed fractur e of shaft of left fibula, initial encounter [S82.492A] Start: 03-09-2024 Orders Only Francisca cedillo MD Work Phone: Orthopedics Comment on above: Other closed fractur e of shaft of left fibula, initial encounter (Primary Dx) Start: 03-07-2024 End: 03-07-2024 Emergency department patient visit PRINCESS FLEMING Facility:[facility] Start: 03-07-2024 End: 03-07-2024 Subsequent hospital visit by physician Tricia [facility] Work Phone: Radiology Comment on above: Left leg pain [M79.6 05] Start: 03-07-2024 End: 03-07-2024 ambulatory PRINCESS FLEMING Facility:[facility] Start: 03-07-2024 End: 03-07-2024 Patient encounter procedure Hanna COFFMAN Work Phone: [facility] Comment on above: Left leg pain (Prima ry Dx); Other closed fracture of shaft of left fibula, initial encounter Start: 02-28-2024 End: 02-28-2024 Emergency department patient visit FÉLIX ROMAN MD [facility] Start: 02-25-2024 End: 02-25-2024 ambulatory Deedee María Elena [employer] Facility:[facility] Start: 02-25-2024 End: 02-25-2024 ambulatory Deedee María Elena [employer] Facility:[facility] Start: 02-19-2024 Encounter for genera l adult medical examination without abnormal findings Naomie Martini [facility] Start: 02-06-[address] Romeo Martini MD Work Phone: [facility] Start: 02-06-2024 End: 02-06-2024 ambulatory Denajose Garayromeo Facility:[facility] Start: 02-06-2024 End: 02-06-2024 ambulatory [facility] Facility:[facility] Start: 04-29-2023 End: 04-29-[address] Naomie Martini Work Phone: [facility] Work Phone: Start: 04-29-2023 End: 04-29-[address] Naomie Martini Work Phone: [facility]-Outpatient Breast Imaging Work Phone: Start: 04-24-2023 End: 04-24-[address] Naomie Martini Work Phone: [facility] Internal Medicine Work Phone: Start: 04-22-2023 End: 04-22-[address] Naomie Martini Work Phone: [facility] Work Phone: Start: 04-17-2023 Non-patient / Non-visit Dr. Dena Martini Work Phone: [facility] Start: 04-17-2023 End: 04-17-2023 Admission to same day surgery center Dr. Naomie Martini Work Phone: [facility]-Endoscopy Work Phone: Start: 04-04-2023 End: 04-04-[address] Naomie Martini Work Phone: [facility] Work Phone: Start: 03-28-2023 End: 03-28-[address] Naomie Martini Work Phone: [facility] Work Phone: Start: 03-28-2023 End: 03-28-[address] Naomie Martini Work Phone: [facility] Work Phone: Start: 03-15-[address] Romeo Martini Work Phone: [facility] Start: 03-15-2023 End: 03-15-[address] Naomie Martini Work Phone: [facility] Work Phone: Start: 03-15-2023 End: 03-15-2023 Encounter for general adult medical examination without abnormal findings Dr. Naomie Martini Work Phone: [facility] Start: 03-15-2023 End: 03-15-[address] Naomie Martini Work Phone: [facility] Start: 01-22-2023 End: 01-22-[address] Naomie Martini Work Phone: [facility] Work Phone: Start: 01-22-2023 End: 01-22-[address] Naomie Martini Work Phone: [facility] Start: 01-22-2023 End: 01-22-[address] Naomie Martini Work Phone: [facility] Start: 10-19-2022 End: 10-19-[address] Naomie Martini Work Phone: [facility] Start: 07-17-2022 End: 07-17-[address] Naomie Martini Work Phone: [facility] Start: 07-10-2022 End: 07-10-[address] Naomie Martini Work Phone: [facility] Work Phone: Start: 07-10-2022 End: 07-10-[address] Naomie Martiin Work Phone: [facility], [facility] Start: 04-26-2022 End: 04-26-[address] Naomie Martini Work Phone: [facility]-Outpatient Breast Imaging Start: 04-03-2022 End: 04-03-[address] Naomie Martini Work Phone: [facility] Start: 12-19-2021 End: 12-19-[address] Naomie Martini Work Phone: [facility]-Cat Scan, [facility] Start: 10-25-2021 End: 10-25-[address] Naomie Martini Work Phone: [facility] Start: 10-27-2020 End: 10-27-2020 Office outpatient visit 10 minutes Noelle Bowden [facility] Start: 07-29-2019 End: 07-29-2019 Office outpatient visit 15 minutes Noelle Bowden [facility] Start: 06-08-2019 End: 06-08-2019 Periodic preventive med est patient 40-64yrs Noelle Bowden [facility] Start: 08-12-2018 End: 08-12-2018 Office outpatient visit 15 minutes Noelle Bowden [facility] Start: 06-13-2018 End: 06-13-2018 Office outpatient visit 15 minutes Noelle Bowden [facility] Start: 06-05-2018 End: 06-05-2018 Periodic preventive med est patient 65yrs& older Noelle Bowden [facility] Start: 06-19-2017 End: 06-19-2017 Phone Encounter Noellegonzales Bowden [facility] Start: 06-17-2017 End: 06-17-2017 Periodic preventive med est patient 40-64yrs Noelle Bowden [facility] Start: 01-17-2017 End: 01-17-2017 Office outpatient visit 15 minutes Noelle Dennise [facility] Start: 10-29-2016 End: 10-29-2016 Office outpatient visit 15 minutes Noelle Bowden [facility] Start: 06-18-2016 End: 06-18-2016 Periodic preventive med est patient 40-64yrs Noelle Bowden [facility] Start: 02-09-2016 End: 02-09-2016 Office outpatient visit 15 minutes Noelle Bowden [facility] Start: 12-28-2015 End: 12-28-2015 Office outpatient visit 15 minutes Noelle Dennise [facility] Start: 10-03-2015 End: 10-03-2015 Office outpatient visit 25 minutes Noelle Bowden [facility] Start: 08-29-2015 End: 08-29-2015 Office outpatient visit 25 minutes Noelle Bowden [facility] Start: 07-18-2015 End: 07-18-2015 Office outpatient visit 25 minutes Noelle Bowden [facility] Start: 07-01-2015 End: 07-01-2015 Office outpatient visit 15 minutes Noelle Dennise [facility] Start: 06-17-2015 End: 06-17-2015 Periodic preventive med est patient 40-64yrs Noelle Medranoon [facility] Start: 06-14-2014 End: 06-14-2014 Periodic preventive med est patient 40-64yrs Noelle Dennise [facility] Start: 12-30-2013 End: 12-30-2013 Patient encounter procedure Noelle Bowden [facility] Start: 06-15-2013 End: 06-15-2013 Patient encounter procedure Noelle Bowden [facility] Start: 09-01-2012 End: 09-01-2012 Phone Encounter Noelle Kelsey [facility] Start: 09-01-2012 End: 09-01-2012 Phone Encounter Noelle Kelsey [facility] Start: 08-22-2012 End: 08-22-2012 Patient encounter procedure Noelle Bowden [facility] Start: 07-24-2012 End: 07-24-2012 Patient encounter procedure Noelle Bowden [facility] Start: 06-25-2012 End: 06-25-2012 Patient encounter procedure Noelle Bowden [facility] Start: 06-05-2012 End: 06-05-2012 Patient encounter procedure Noelle Bowden [facility] Start: 08-07-2011 End: 08-07-2011 Office outpatient visit 25 minutes Noelle Bowden [facility] Start: 05-24-2011 End: 05-24-2011 Patient encounter procedure Noelle Bowden [facility] Start: 05-02-2011 End: 05-02-2011 Patient encounter procedure Noelle Bowden [facility] Start: 04-26-2011 End: 04-26-2011 Phone Encounter Noelle Bowden [facility] Start: 04-19-2011 End: 04-19-2011 Office outpatient visit 10 minutes Noelle Bowden [facility] Start: 11-16-2009 End: 11-16-2009 Patient encounter procedure Noelle Bowden [facility] Start: 10-17-2009 End: 10-17-2009 Office outpatient visit 25 minutes Noelle Bowden [facility] Start: 10-03-2009 End: 10-03-2009 Patient encounter procedure Noelle Bowden [facility] Start: 12-17-2007 End: 12-17-2007 Patient encounter procedure Noelle Bowden [facility] Start: 11-24-2007 End: 11-24-2007 Patient encounter procedure Noelle Bowden [facility] Start: 03-17-2007 End: 03-17-2007 Office outpatient visit 25 minutes Noellehernán Bowden [facility] Internal [facility] Procedures Date Procedure Procedure Detail Performing Clinician Start: 04-22-2024 Radex ankle complete minimum 3 views Francisca Rivera MD Work Phone: Start: 03-25-2024 Mri any jt lower extrem w/o contrast matrl Judd Sandoval PA-C Work Phone: Start: 03-11-2024 Radiologic examination ankle 2 views Judd Sandoval PA-C Work Phone: Start: 03-07-2024 Radiologic examination tibia & fibula 2 views Hanna COFFMAN Work Phone: Start: 04-29-[address] Naomie Martini Work Phone: Start: 04-22-[address] Naomie Martini Work Phone: Start: 03-28-2023 Computed tomography of abdomen and pelvis with contrast Dr. Naomie Martini Work Phone: Start: 01-22-[address] Naomie Martini Work Phone: Start: 04-26-[address] Naomie Martini Work Phone: Start: 12-19-[address] Naomie Martini Work Phone: Start: 11-07-2020 End: 11-07-2020 Internal Medicine Office Visit Comments: See Note; NOTES: [facility] [place] [address] [place] [address] OFFICE VISIT Date of Service: 11/07/20 MR#: [id number] Acct: [id number] Name: FELICITY VILLA V Rep #: [id number] : 1965 Provider: Dr. Naomie west MD Age/Sex: 55/F Location: [facility] Status: Signed Intake Vital Signs 11/07/20 Height [...] mg PO DAILY 11/07/20 [History Confirmed 11/07/20] PFS Medical History (Updated 11/07/20 @ 10:26 by [...] to her prior PCP, her BP was "normal". Does not report chest pain, palpitations or [...] any concerns. This note was generated with [employer] 28 dictation software. It may contain incorrect words, [...] Bone Density Study Comments: See Note; NOTES: [facility] Imaging Services [address] [place] [address] Dexa Bone Density Study MR#: [id number] Acct: [id number] Name: FELICITY VILLA V Rep #: [id number] : 1965 F 53 From: Terry Pérez MD PCP: Noelle Bowden DO Status: REG CLI Study: Dexa Bone Density Study Date of Exam: 07/22/18 Exam# [id number] Ordering Dr: Noelle Bowden DO STUDY: DUAL [...] Terry Pérez MD at 10:10 EDT Tel [phone], Service support , CC: Noelle Bowden DO Stream Control Officer: Signed Noelle Bowden Work Phone: Start: 07-22-2018 End: 07-23-2018 SCREENING MAMM (CAD), BILAT Comments: See Note; NOTES: [facility] Imaging Services [address] [place] [id number] SCREENING MAMM (CAD), BILAT MR#: [id number] Acct: [id number] Name: ALLENFELICITY V Rep #: [id number] : 1965 F 53 From: Terry Pérez MD PCP: Noelle Bowden DO Status: [facility] Study: SCREENING MAMM (CAD), BILAT Date of Exam: 07/22/18 Exam# [id number] Ordering Dr: Noelle Bowden DO MAMMOGRAPHY - BILATERAL SCREENING REASON FOR EXAM: Female, 53 years old. Routine annual screening examination. PERTINENT HISTORY: Sister with breast cancer. TECHNIQUE: Digital bilateral breast maurice (3D mammographic acquisition) in the CC and [...] delay biopsy of a clinically suspicious abnormality. [id number] Electronically Signed: Terry Pérez MD at 8:05 EDT Tel [phone], Service support , CC: Noelle Bowden DO Stream Control Officer: Signed Noelle Bowden Work Phone: Start: 07-11-2018 End: 07-11-2018 Urgent Care Visit Report Comments: See Note; NOTES: [facility] [address] [place] [address] OFFICE VISIT Date of Service: 07/11/18 MR#: [id number] Acct: [id number] Name: FELICITY VILLA V Rep #: [id number] : 1965 Provider: Cruz Ch NP Age/Sex: 53/F Location: [facility] Status: Signed Intake Vital Signs07/11/18 Blood Pressure 120/84 H 07/11/18 Blood Pressure Location Lt brachial 07/11/18 Blood Pressure Position Sitting Intake Visit Reasons: [...] oriented x3 Limitations: mental status not altered [facility] Head: normal to inspection Ears: hearing [...] Carotid Duplex Ultrasound Comments: See Note; NOTES: [facility] Cardiovascular Services [address] [place] [id number] Carotid Duplex Ultrasound 06/20/18 1108 MR#: [id number] Acct: [id number] Name: FELICITY VILLA V Rep #: [id number] : 1965 53 From: Michael Lopez MD Attending Dr: Noelle Bowden DO Status: REG CLI Ordering Dr: Noelle Bowden DO Date: 06/20/18 Location: [facility] Sex: F C Admitted: Reason For Study: [...] the left vertebral artery. Procedure Carotid Duplex [id number]. Exam performed in department. Interpretation Summary Mild (<50%) stenosis right extracranial internal carotid. Mild (<50%) stenosis left extracranial internal carotid. Flow within the vertebral arteries is antegrade bilaterally. Ordering Physician: Noelle Bowden Referring Physician: Noelle Bowden Performed By: China Nation RVT and Student 06/25/18 0753 Date Michael Lopez MD CC: Noelle Bowden DO Date Dictated: 06/20/18 1108 Date Transcribed: 06/25/18752 Stream Control Officer: Signed Noelle Bowden Work Phone: Start: 06-25-2018 End: 06-25-2018 Carotid Duplex Ultrasound Comments: See Note; NOTES: [facility] Cardiovascular Services [place] [address] Carotid Duplex Ultrasound 06/20/18 1108 MR#: [id number] Acct: [id number] Name: FELICITY VILLA V Rep #: [id number] : 1965 53 From: Michael Lopez MD Attending Dr: Noelle Bowden DO Status: REG CLI Ordering Dr: Noelle Bowden DO Date: 06/20/18 Location: [facility] Sex: F C Admitted: Reason For Study: [...] the left vertebral artery. Procedure Carotid Duplex 50505. Exam performed in department. Interpretation Summary Mild (<50%) stenosis right extracranial internal carotid. Mild (<50%) stenosis left extracranial internal carotid. Flow within the vertebral arteries is antegrade bilaterally. Ordering Physician: Noelle Bowden Referring Physician: Noelle Bowden Performed By: China Nation RVT and Student 06/25/18 0753 Date Michael Lopez MD CC: Noelle Bowden DO Date Dictated: 06/20/18 1108 Date Transcribed: 06/25/18752 Stream Control Officer: Signed Noelle Bowden Work Phone: Start: 05-27-2018 End: 05-27-2018 Emergency Department Summary Comments: See Note; NOTES: [facility] Medical Records Department [address] [place] [address] Emergency Department Summary 05/27/18 0838 MR#: [id number] Acct: [id number] Name: FELICITY VILLA V Rep #: [id number] : 1965 53 From: Abdirahman Perdue MD [...] Chest pain This note was generated with Paragon 28 dictation software. It may contain incorrect words, spelling, and punctuation that were not noted in review of the chart prior to signing ED Disposition - Plan for ED Patient: Chief Complaint: Chest Pain Referrals: Noelle Bowden, DO [Primary Care Provider] - What to do if you have Problems For any increased pain, shortness of breath, bleeding, nausea or vomiting, chest pain, or any unexpected problems, contact your Primary Care Provider. Call [facility] ([phone]) or report to the closest Emergency Room. Call 911 if necessary. 05/27/18921 <Electronically signed by Abdirahman Perdue MD> Date Abdirahman ePrdue MD Cosigner Signature (If Indicated): Date CC: Noelle Hawthorne Start: 05-27-2018 End: 05-27-2018 Chest 1 View (Portable) Comments: See Note; NOTES: [facility] Imaging Services [address] [place] [address] Chest 1 View (Portable) MR#: [id number] Acct: [id number] Name: KADIE VILLALINE Carin Rep #: [id number] : 1965 F 53 From: Terry Pérez MD PCP: Noelle Bowden DO Status: REG ER Study: Chest 1 View (Portable) Date of Exam: 05/27/18 Exam# [id number] Ordering Dr: Abdirahman Perdue MD STUDY: X-RAY [...] Terry Pérez MD at 9:19 EDT Tel [phone], Service support , CC: Noelle Bowden DO; Abdirahman Perdue MD Stream Control Officer: Signed Noelle Bowden Start: 10-02-2017 End: 10-02-2017 Urgent Care Visit Report Comments: See Note; NOTES: [address] [place] [address] OFFICE VISIT Date of Service: 10/02/17 MR#: [id number] Acct: [id number] Name: ALLENFELICITY V Rep #: [id number] : 1965 Provider: Ignacio COFFMAN Age/Sex: 52/F Location: [facility] Status: Signed Intake Vital Signs10/02/17 Height 5 [...] Days #10 cap 09/28/17 [Rx Confirmed 09/28/17] PFSH Medical History Urinary tract infection (Acute) Social [...] body habitus Orientation: alert, awake, oriented x3 [facility] Head: normal to inspection Ears: hearing [...] Cosigner Signature: Date (if applicable) CC: Noelle Dennise Start: 09-28-2017 End: 09-28-2017 Urgent Care Visit Report Comments: See Note; NOTES: [facility] [address] [place] [address] OFFICE VISIT Date of Service: 09/28/17 MR#: [id number] Acct: [id number] Name: ALLENFELICITY V Rep #: [id number] : 1965 Provider: Jason COFFMAN Age/Sex: 52/F Location: [facility] Status: Signed Intake Vital Signs09/28/17 Height 5 [...] MAMM (CAD), BIL Comments: See Note; NOTES: [facility] Imaging Services [address] [place] [address] Verdana 4d SCREENING MAMM (CAD), [facility] MR#: [id number] Acct: [id number] Name: FELICITY VILLA V Rep #: [id number] : 1965 F 51 From: Terry Pérez MD PCP: Noelle Bowden DO Status: [facility] Study: SCREENING MAMM (CAD), BIL Date of Exam: 10/12/16 Exam# [id number] Ordering Dr: Noelle Bowden DO MAMMOGRAPHY - BILATERAL SCREENING REASON FOR EXAM: Female, 51 years old. Routine annual screening examination. PERTINENT HISTORY: Sister with breast cancer. TECHNIQUE: Digital bilateral breast maurice (3D mammographic acquisition) in the CC and [...] delay biopsy of a clinically suspicious abnormality. [id number] Electronically Signed: Terry Pérez MD at 9:20 EST Tel [phone], Service support [phone], CC: Noelle Bowden DO Stream Control Officer: Signed Noelle Bowden Work Phone: Start: 11-05-2015 End: 11-05-2015 Carotid Duplex Ultrasound Comments: See Note; NOTES: [facility] Cardiovascular Services [address] [place] [address] Carotid Duplex Ultrasound 11/02/15 0955 MR#: [id number] Acct: [id number] Name: FELICITY VILLA V Rep #: [id number] : 1965 50 From: Michael Lopez MD Attending Dr: Maria Elena Orr DO Status: REG CLI Ordering Dr: Maria Elena Orr DO Date: 11/02/15 Location: [facility] Sex: F C Admitted: Rt. Velocities/BP Lt. [...] the left vertebral artery. Procedure Carotid Duplex 03646. Exam performed in department. Interpretation Summary Mild (<50%) stenosis right extracranial internal carotid. Mild (<50%) stenosis left extracranial internal carotid. Flow within the vertebral arteries is antegrade bilaterally. Ordering Physician: Maria Elena Orr Performed By: China Nation RVT 11/05/15 1152 Date Michael Lopez MD CC: Maria Elena Orr DO; Noelle Bowden Date Dictated: 11/02/15 0955 Date Transcribed: 11/05/15 1152 Stream Control Officer: Signed Maria Elena Orr Work Phone: Start: 09-02-2015 End: 09-05-2015 Echocardiogram Complete Comments: See Note; NOTES: [facility] Cardiovascular Services [address] [address] Echo Complete 09/02/15 0839 MR#: [id number] Acct: [id number] Name: FELICITY VILLA V Rep #: [id number] : 1965 50 From: Abdirahman Butler MD Attending Dr: Maria Elena Orr DO Status: REG CLI Ordering Dr: Maria Elena Orr DO Date: 09/02/15 Location: [facility] Sex: F C Admitted: Procedure This was [...] Date Dictated: 09/02/15 0839 Date Transcribed: 09/02/15 182 Stream Control Officer: Signed Maria Elena Orr Work Phone: Start: 09-02-2015 End: 09-05-2015 Brain/Head W/WO Contrast Comments: See Note; NOTES: [facility] Imaging Services [address] [place] [address] Verdana 4d Brain/Head W/WO Contrast MR#: [id number] Acct: [id number] Name: FELICITY VILLA V Rep #: [id number] : 1965 F 50 From: Terry Pérez MD PCP: Noelle Bowden DO Status: REG CLI Study: Brain/Head W/WO Contrast Date of Exam: 09/02/15 Exam# [id number] Ordering Dr: Maria Elena Orr DO STUDY: [...] Terry Pérez MD at 14:29 EST Tel [phone], Service support [phone], CC: Maria Elena Orr DO; Noelle Bowden DO Stream Control Officer: Signed Maria Elena Orr Work Phone: Start: 09-02-2015 End: 09-05-2015 Chest WITH Contrast Comments: See Note; NOTES: [facility] Imaging Services [address] [place] [address] Verdana 4d Chest WITH Contrast MR#: [id number] Acct: [id number] Name: FELICITY VILLA V Rep #: [id number] : 1965 F 50 From: Terry Pérez MD PCP: Noelle Bowden DO Status: REG CLI Study: Chest WITH Contrast Date of Exam: 09/02/15 Exam# [id number] Ordering Dr: Maria Elena Orr DO STUDY: [...] Terry Pérez MD at 13:49 EST Tel [phone], Service support [phone], CC: Maria Elena Orr DO; Noelle Bowden DO Stream Control Officer: Signed Maria Elena Orr Work Phone: Start: 09-02-2015 End: 09-05-2015 Nuclear Stress Test - Treadmil Comments: See Note; NOTES: [facility] Imaging Services [address] [place] [address] Verdana 4d Nuclear Stress Test - Treadmil MR#: [id number] Acct: [id number] Name: FELICITY VILLA V Rep #: [id number] : 1965 50 From: Abdirahman Butler MD [...] 64%. Abdirahman Butler MD T: NTS JOB: [id number] 09/03/15906 <Electronically signed by Abdirahman Butler MD> Date Abdirahman Butler MD CC: Maria Elena Orr DO; Noelle Bowden DO Date Dictated: 09/02/15937 Date Transcribed: 09/02/15937 Stream Control Officer: Signed Maria Elena Orr Work Phone: Start: 08-30-2015 End: 08-31-2015 Pelvic (Non ) Comments: See Note; NOTES: [facility] Imaging Services [address] [place] [address] Verdana 4d Pelvic (Non ) MR#: [id number] Acct: [id number] Name: FELICITY VILLA V Rep #: [id number] : 1965 F 50 From: Yg Evans MD PCP: Noelle Bowden DO Status: REG CLI Study: Pelvic (Non ) Date of Exam: 08/30/15 Exam# [id number] Ordering Dr: Maria Elena Orr DO STUDY: [...] at 3:27 EST Tel , Service support [phone], CC: Maria Elena Orr DO; Noelle Bowden DO Stream Control Officer: Signed [employer] Phone: Start: 08-29-2015 End: 08-29-2015 Ecg routine ecg w/least 12 lds w/i&r [MEASUREMENTS ANALYSIS] Date of Test: 08/29/2015 10:48:29; Heart Rate: 77; WA Interval: 116; QRS: 90; QT Interval: 394; Corrected QT Interval (QTc): 423; P Wave [place]: 35; QRS Wave [place]: 53; T Wave [place]: 57; Blood Pressure: 102/64 [ECG DIAGNOSTIC STATEMENTS] Date of Test: 08/29/2015 10:48:29; Summary: Sinus Rhythm -Short WA syndrome Andree = 116- T-abnormality - Anteroseptal/anterior ischemia. ABNORMAL Maria Elena A Fast Work Phone: Comment on above: ekg- sinus with asymetric t wave inversi on ant- noted to be in v3 now not previoulsy Start: 08-29-2015 End: 08-29-2015 Spmtry w/vc expiratory giorgio w/wo mxml vol vntj _ Maria Elena Saez [employer] Work Phone: Comment on above: good effort and curve normal Start: 08-01-2015 End: 08-02-2015 Inital Evaluation - PT Comments: See Note; NOTES: [facility] Physical Therapy [facility] [address] [place] [address] Fax REHABILITATION SERVICES INITIAL EVALUATION MR#: [id number] Acct: [id number] Name: FELICITY VILLA V Rep #: [id number] : 1965 50 From: Delmi Castro Referring Dr.: Maria Elena Orr DO Status: REG RCR Insurance: [facility] [employer] Eval Date: Patient's Visit Information FELICITY [...] treatment manipulation neck and back. 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 SOCIAL: - Objective POSTURE:mild posture ,reduce [...] to be FAXED BACK to us at [phone] for Medicare purposes. Please let me know if there are questions or concerns regarding this plan of care. Physician Signature: Date: <Electronically signed by Delmi Castro > 08/01/15 5179 CC: Maria Elena Orr DO; Noelle Bowden DO Signed For Medicare only, by signing this I certify the plan of care. _ Physicians Signature Date Noelle Bowden Start: 07-18-2015 End: 07-20-2015 L/S Spine Min 4 Views Comments: See Note; NOTES: [facility] Imaging Services [address] [place] [address] Verda 4d L/S Spine Min 4 Views MR#: [id number] Acct: [id number] Name: FELICITY VILLA V Rep #: [id number] : 1965 F 50 From: Juan Minaya MD PCP: Noelle Bowden DO Status: REG CLI Study: L/S Spine Min 4 Views Date of Exam: 07/18/15 Exam# [id number] Ordering Dr: Maria Elena Orr DO STUDY: [...] FACR at 12:39 EDT , Service support [phone], RAD/L/S Spine Min 4 Views IMPRESSION: Normal x-ray examination of the lumbar spine. Electronically Signed: Juan Minaya MD, FACR at 12:39 EDT , Service support [phone], CC: Maria Elena Orr DO; Noelle Bowden DO Stream Control Officer: Signed Maria Elena Orr Work Phone: Start: 05-28-2011 Lipid 1996 panel - Serum or Plasma Hanna COFFMAN Work Phone: Plan of Treatment Date Care Activity Detail Author Start: 05-24-2024 Covid-19 Vaccine ( season) Covid-19 Vaccine ( season) [facility] Start: 05-24-2024 Influenza vaccination C [facility] Start: 04-22-2024 End: 04-22-2024 Patient encounter procedure 04/22/2024 9:20 AM EDT Office Visit Orthopedics [address] [place], [place] [id number] Francisca Rivera MD [address] [address] [facility] [address] [place] [address] left leg f/u fx Orthopedics Comment on above: left leg f/u fx Start: 04-15-2024 End: 04-15-2024 Patient encounter procedure 04/15/2024 8:00 AM EDT Appointment Radiology [address] [place] [address] Other closed fracture of shaft of left [...] 09-23-2023 Behavioral Health Screening Behavioral Health Screening [facility] Start: 05-24-2023 Covid-19 Vaccine ( season) Covid-19 Vaccine ( season) [facility] Start: 04-17-2023 Colsc flx w/rmvl of tumor polyp lesion snare tq COLONOSCOPY W/LESION REMOVAL [facility] Start: 04-17-2023 Patient discharge [facility] Start: 03-15-2023 Patient referral [facility] Work Phone: Start: 10-27-2020 Procedure Education Eprescribe d prescriptions (G8553) [facility]; [facility] Work Phone: Start: 07-29-2019 Procedure Education Eprescribe d prescriptions (G8553) [facility] Work Phone: Start: 07-29-2019 Provider Instruction s for Treatment [facility] Work Phone: Start: 07-29-2019 HbA1c (Bld) [Mass fraction] HGB A1C (75477) [facility] Work Phone: Start: 06-08-2019 Glucose [Mass/Vol] [facility] Work Phone: Start: 06-08-2019 Lipoprotein blood qu an numbers & subclasses NMR Profile (34706) [facility] Work Phone: Start: 08-12-2018 Provider Instruction s for Treatment Reviewed Diagnostic Tests [facility] Work Phone: Start: 08-12-2018 25 hydroxy includes fractions if performed CALCIFEDIOL (18823) [facility] Work Phone: Start: 06-13-2018 Provider Instruction s for Treatment [facility] Work Phone: Start: 06-05-2018 Procedure Education Eprescribe d prescriptions (G8553) [facility] Work Phone: Start: 06-05-2018 Provider Instruction s for Treatment [facility] Work Phone: Start: 06-05-2018 Hepatitis c antibody HEPATITIS C ANTIBODY (79771) [facility] Work Phone: Start: 06-17-2017 Provider Instruction s for Treatment [facility] Work Phone: Start: 06-17-2017 Urnls dip stick/tabl et rgnt non-auto w/o micrscp Urinalysis, Office (45793) [facility] Work Phone: Start: 01-17-2017 [...] ant neoplasm of cervix Cervical Cancer Screening [facility] Start: 06-18-2016 Provider Instruction s for Treatment [facility] Work Phone: Start: 06-18-2016 Blood occult fecal h gb deter ia qual feces 1-3 FECAL OCCULT- Tubes sent home (07617) [facility] Work Phone: Start: 06-18-2016 Cytp cerv/vag auto t hin layer prep mnl screen Thin prep Pap (65701) (no STD testing) [facility] Work Phone: Start: 05-28-2016 Lipid panel Lipid Screening [facility] Start: 02-09-2016 Procedure Education Eprescribe d [...] ign respnse gamma interferon Quantiferron gold test (80347) [facility] Work Phone: Start: 10-03-2015 Procedure Education Eprescribe d prescriptions (G8553) [facility] Work Phone: Start: 08-29-2015 Procedure Education Eprescribe d prescriptions (G8553) [facility] Work Phone: Start: 08-29-2015 Troponin I.cardiac [Mass/Vol] ASSAY, TROPONIN, QUANTITATIVE (aka Troponin I) (18922) [facility] Work Phone: Start: 08-29-2015 TSH Qn TSH (72594) [facility] Work Phone: Start: 08-29-2015 Blood count complete auto&auto difrntl wbc CBC W/AUTO DIFF WBC (58503) [facility] Work Phone: Start: 08-29-2015 Comprehensive metabo lic panel METABOLIC PANEL, COMPREHENSIVE (33609) [facility] Work Phone: Start: 07-18-2015 Procedure Education Eprescribe d prescriptions (G8553) [facility] Work Phone: Start: 07-18-2015 Culture bacterial quanttative colony count urine URINE JOVANNY CULTURE-STONE COL COUNT (87518) [facility] Work Phone: Start: 07-01-2015 Provider Instruction s for Treatment [facility] Work Phone: Start: 06-17-2015 Procedure Education Eprescribe d prescriptions (G8553) [facility] Work Phone: Start: 06-17-2015 Provider Instruction s for Treatment [facility] Work Phone: Start: 06-17-2015 Cytp cerv/vag auto t hin layer prep mnl screen Thin prep Pap (38487) (no STD testing) [facility] Work Phone: Start: 2015 Shingrix Vaccine (1 of 2) Shingrix Vaccine (1 of 2) [facility] Start: 05-28-2014 Diabetes Screening Diabetes Screenin g [facility] Start: 12-30-2013 Provider Instruction s for [...] Free T4 [Mass/Vol] T4, FREE (T HYROXINE) (90323) [facility] Work Phone: Start: 08-07-2011 Free T3 [Mass/Vol] T3, FREE (TRIDOTHYRONINE) (01760) [facility] Work Phone: Start: 08-07-2011 TSH Qn TSH (78431) [facility] Work Phone: Start: 05-24-2011 Provider Instruction s for Treatment [facility] Work Phone: Start: 05-14-2011 Culture bacterial quanttative colony count urine URINE JOVANNY CULTURE-STONE COL COUNT (90043) [facility] Work Phone: Start: 2010 Screening for malign ant neoplasm of colon [facility] Start: 11-16-2009 Provider Instruction s for Treatment [facility] Work Phone: Start: 11-16-2009 TSH Qn TSH (29025) [facility] Work Phone: Start: 10-17-2009 Provider Instruction s for Treatment FOLLOW UP - MAKE APPT AFTER DIAGNOSTIC TESTS [facility] Work Phone: Start: 10-17-2009 Blood count complete automated CBC (AUTO) (28831) [facility] Work Phone: Start: 12-17-2007 Provider Instruction s for Treatment exercises [facility] Work Phone: Start: 03-17-2007 Provider Instruction s for Treatment [facility] Work Phone: Start: 2005 Screening for malign ant neoplasm of breast Mammogram Screening [facility] Start: 1984 Hepatitis B Vaccine (1 of 3 - 19+ 3-dose series) Hepatitis B Vaccine (1 of 3 - 19+ 3-dose series) [facility] Start: 1984 Urine microalbumin profile DTaP,Tdap,Td Vaccine (1 - Tdap) [facility] Start: 1983 Anxiety Screening Anxiety Screening [facility] Start: 1983 Depression Screening Depression Scre ening [facility] Start: 1983 Hepatitis C screening Hepatitis C [facility] Start: 1983 HIV screening HIV Screening [facility] Blood chemistry [facility] CBC W Auto Different ial panel - Blood [facility] Work Phone: Colonoscopy [facility] CT Abdomen and Pelvi s W contrast IV [facility] Hemoglobin A1c/Hemoglobin.total in Blood [facility] Work Phone: Lipid 1996 panel - Serum or Plasma [facility] Work Phone: MG Breast - bilatera l Screening [facility] End: 04-10-2025 MR Knee - left WO contrast MRI KNEE WO IVCON LEFT Radiology Routine Other closed fracture of shaft of left fibula, initial encounter 1 Occurrences starting 03/11/2024 until 04/10/2025 [facility] Work Phone: Comment on above: 1 Occurrences starti ng 03/11/2024 until 04/10/2025 Patient referral [facility] Work Phone: End: 05-22-2025 XR Ankle - left AP and Lateral and oblique XR ANKLE GENERAL 3V AP/LAT/OBL LEFT Radiology Routine Closed fracture of shaft of left fibula with routine healing, unspecified fracture morphology, subsequent encounter Other closed fracture of shaft of left fibula, initial encounter 1 Occurrences starting 04/22/2024 until 05/22/2025 [facility] Comment on above: 1 Occurrences starti ng 04/22/2024 until 05/22/2025 XR Ankle - left AP a nd Lateral and oblique XR ANKLE GENERAL 3V AP/LAT/OBL LEFT Radiology Routine Closed fracture of shaft of left fibula with routine healing, unspecified fracture morphology, subsequent encounter Other closed fracture of shaft of left fibula, initial encounter 04/22/2024 12:19 PM EDT [facility] End: 04-08-2025 XR Ankle - left Single view XR ANKLE 1V LEFT Radiology Routine Other closed fracture of shaft of left fibula, initial encounter 1 Occurrences starting 03/09/2024 until 04/08/2025 [facility] Work Phone: Comment on above: 1 Occurrences starti ng 03/09/2024 until 04/08/2025 XR Shoulder GE 2 Views [facility] Work Phone: End: 05-22-2025 XR Tibia and Fibula - left AP and Lateral [facility] Work Phone: Comment on above: 1 Occurrences starti ng 04/22/2024 until 05/22/2025 XR Tibia and Fibula - left AP and Lateral XR TIBIA FIBULA 2V AP/LAT LEFT Radiology Routine Closed fracture of shaft of left fibula with routine healing, unspecified fracture morphology, subsequent encounter 04/22/2024 12:19 PM EDT [facility] Work Phone: [...] Immunizations Immunization Date Immunization Notes Care Provider [facility] 09-02-2024 Seasonal trivalent influenza vaccine, adjuvanted, preservative free Dr. Naomie Martini MD Work Phone: [facility] 07-17-2022 influenza, injectable, quadrivalent, preservative free Dr. Naomie Martini MD Work Phone: [facility] 07-17-2022 influenza, seasonal, injectable Dr. Naomie Martini Work Phone: [facility] 07-17-2022 influenza virus vaccine, unspecified formulation Hanna COFFMAN Work Phone: [facility] 10-15-2021 Covid (Pfizer) Dr. Naomie Martini MD Work Phone: [facility] 09-24-2021 Covid (Pfizer) Dr. Naomie Martini MD Work Phone: [facility] 06-21-2020 influenza, injectable, quadrivalent, preservative free Dr. Naomie Martini MD Work Phone: [facility] 06-21-2020 influenza, seasonal, injectable Dr. Naomie Martini Work Phone: [facility] 06-21-2020 influenza, seasonal, injectable, preservative free Dr. Naomie Martini MD Work Phone: [facility] 07-14-2019 influenza, injectable, quadrivalent, preservative free Dr. Naomie Martini MD Work Phone: [facility] 07-14-2019 influenza, seasonal, injectable Dr. Naomie Martini Work Phone: [facility] 06-23-2019 influenza, injectable, quadrivalent, preservative free Dr. Naomie Martini MD Work Phone: [facility] 06-23-2019 influenza, seasonal, injectable Noelle Bowden [facility] Siderographist or Medicine Work Phone: 06-20-2018 influenza, injectable, quadrivalent, preservative free Dr. Naomie Martini MD Work Phone: [facility] 06-20-2018 influenza, seasonal, injectable Dr. Naomie Martini Work Phone: [facility] 06-19-2017 influenza, injectable, quadrivalent, preservative free Dr. Naomie Martini MD Work Phone: [facility] 06-19-2017 influenza, seasonal, injectable Dr. Naomie Martini Work Phone: [facility] 06-22-2016 influenza, injectable, quadrivalent, preservative free Dr. Naomie Martini MD Work Phone: [facility] 06-22-2016 influenza, seasonal, injectable Dr. Naomie Martini Work Phone: [facility] 06-22-2015 influenza, injectable, quadrivalent, preservative free Dr. Naomie Martini MD Work Phone: [facility] 06-22-2015 influenza, seasonal, injectable Dr. Naomie Martini Work Phone: [facility] 06-23-2014 influenza, injectable, quadrivalent, preservative free Dr. Naomie Martini MD Work Phone: [facility] 06-23-2014 influenza, seasonal, injectable Dr. Naomie Martini Work Phone: [facility] 08-17-[address] Naomie Martini Work Phone: [facility] 07-27-2009 novel [id number], preservative-free, injectable Dr. Naomie Martini MD Work Phone: [facility] Payers Date Payer Category Payer Self-pay [id number] 2022 Unknown 2020 Unknown [id number] 2015 Unknown [id number] 1965 Unknown [id number] 1965 Unknown [id number] 40.1.141207.3.579.2.627 Unknown [id number] .16.8 40.1.388043.3.579.2.462 Unknown [id number] .16.8 40.1.444158.3.579.2.462 Unknown [id number] .16.8 40.1.053107.3.579.2.462 Unknown [id number] 2.16.8 40.1.264685.3.579.2.462 Unknown [id number] 2.16.8 40.1.725518.3.579.2.462 Unknown [id number] 2.16.8 40.1.703795.3.579.2.462 Unknown [id number] 2.16.8 40.1.617659.3.579.2.462 Unknown [id number] 2.16.8 40.1.592076.3.579.2.462 Unknown [id number] 2.16.8 40.1.971512.3.579.2.462 Unknown [id number] 2.16.8 40.1.690654.3.579.2.462 Unknown [id number] 2.16.8 40.1.580151.3.579.2.462 Unknown [id number] 2.16.8 40.1.030873.3.579.2.462 Unknown [id number] 2.16.8 40.1.028546.3.579.2.462 Unknown [id number] 2.16.8 40.1.187242.3.579.2.462 Unknown [id number] 2.16.8 40.1.624884.3.579.2.462 Unknown [id number] 2.16.8 40.1.664965.3.579.2.462 Unknown [id number] 2.16.8 40.1.970028.3.579.2.462 Unknown [id number] 2.16.8 40.1.265680.3.579.2.462 Unknown [id number] 2.16.8 40.1.910064.3.579.2.462 Unknown [id number] 2.16.8 40.1.926502.3.579.2.462 Social History Date Type Detail Facility Start: 03-07-2024 End: 03-11-2024 Alcohol Use Alcohol Use [facility] Work Phone: Comment on above: Occasional alcohol u se Inactive 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 Tobacco use: Tobacco use: [facility] Work Phone: Tobacco Use: Tobacco Use: [facility] Work Phone: Comment on above: updated 05-24-11 Start: 12-19-2021 End: 04-24-2023 Tobacco smoking status [facility] Unknown if ever smoked [facility] Start: 11-26-2020 None [facility] Start: 11-26-2020 Cigarettes [facility] Start: 1965 Sex Assigned At Female [facility] Start: 05-27-2018 Spouse/ Signif icant Other [facility] Tobacco smoking status No Smoking Status Entered [facility] Start: 03-07-2024 End: 07-29-2024 Tobacco smoking status [facility] Ex-smoker [facility] End: 01-22-2024 History of tobacco use Current smoker [facility] Start: 03-07-2024 Tobacco use and exposure Former smokeless tobacco user [facility] End: 08-06-2011 History of tobacco use User of smokeless tobacco [facility] Start: 03-07-2024 End: 03-11-2024 Alcohol intake Current drinker of alcohol (finding) [facility] Start: 03-07-2024 End: 03-11-2024 Tobacco use panel [facility] Start: 08-28-2011 Alcohol Comment Occasionally [facility] Start: 1965 Sex Assigned At Not on file [facility] End: 01-22-2024 History of tobacco use Cigarette Smoker [facility] History of tobacco use Passive smoker [facility] Start: 03-11-2024 Tobacco use and exposure Smokeless tobacco non-user [facility] National Score (1-100), lower number is lower risk 54 [facility] Start: 01-05-2025 [facility] (finding[facility]: Highlighted row [facility] Goals Date Patient Goal Desired Activity /State Functional Status Date Assessment Result Facility 04-27-2024 Functional Status Home Living Ad ditional Information Objective: Vitals: HR: 72 O2 sat: 97% BP: 130/84 Gait: Antalgic gait arrives wearing flip flop style sandals. Weight bearing status: WBAT: Joint Mobility: restricted mildly in dorsiflexion and eversion Effusion: min to no observed effusion, no bruising, no obvious signs of infection Foot: mild toe dexterity deficits L>R Balance: Able to tolerate SLS but notable wobble on the L and needs external support after 3-4 seconds. [facility] 02-28-2024 Functional Status [facility] 02-28-2024 Functional Status Standard Safet y ID band on, Call device within reach, Bed in low position, Wheels locked, Upper/Half-Length side-rails up, personal items within reach, Bedside Cart Locked, Visitor at bedside [facility] Mental Status Date Assessment Result Facility 02-28-2024 Mental Status Orientation Oriented x 4 [facility] 02-28-2024 Mental Status [facility] 04-17-2023 Cognitive function Voice/Name [facility] Work Phone: Clinical Notes 02-28-2024 to 12-23-2024 Note Date & Type Note Facility 12-23-2024 Evaluation note Diagnosis Onset Date Resolution Postmenopausal bleeding acute A pril 2024 8:38am Generalized anxiety disorder chronic December 23, 2024 8:38am Hyperlipidemia chronic December 23, 2024 8:38am Hypertension chronic December 23 8:38am Vaginal atrophy chronic December 8:38am [facility] Work Phone: [phone]) 747-747911-12-2024 [facility] Medical Records Department [address] [place] [address] History Physical Exam 08/04/24 1155 MR#: [id number] Acct: [id number] Name: FELICITY VILLA Rep #: [id number] : 1965 59 From: Lyn Slaughter DO PCP: Dr. 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 Is patient in pain?: No Allergies No Known Allergies Allergy (Verified 07/13/24 08:21) Medications ???Medication ???Instructions ???Recorded ???Confirmed ???Type aspirin 81 mg tablet,delayed 81 mg PO DAILY 04/03/22 07/13/24 History release (Erin Low Dose Aspirin) lorazepam 1 mg tablet (Ativan) 0.5 mg (1/2 x 1 mg) PO DAILY PRN 04/03/22 07/13/24 Rx PRN Anxiety #15 tabs cholecalciferol (vitamin D3) 50 50 mcg PO DAILY 01/22/23 07/13/24 History mcg (2,000 unit) capsule mecobalamin (vitamin B12) 1,000 5,000 mcg PO DAILY 03/15/23 07/13/24 History mcg chewable tablet ibuprofen 800 mg tablet 800 mg PO TID PRN pain #21 tabs 04/22/23 07/13/24 Rx hydrochlorothiazide 25 mg tablet 25 mg PO QAM #90 tabs 05/15/24 07/13/24 Rx Saccharomyces boulardii 250 mg 250 mg PO BID 06/17/24 07/13/24 History capsule (Daily Probiotic (S. boulardii)) Post menopausal: No Patient : No : No PFSH Medical History History of tobacco use Encounter for screening for malignant neoplasm of lung Preventative health care Muscular abdominal pain in right flank Post-menopausal Alcohol use Arthritis History of diverticulitis Emphysema, unspecified Shortness of breath on exertion Smoker History of stress test Hypertension Health care maintenance Change in skin mole Blood in stool Abdominal pain Colon cancer screening Hyperlipidemia Flu vaccine need Elevated blood sugar Right shoulder pain Tobacco use disorder, continuous Encounter for screening for malignant neoplasm of lung in current smoker with 30 pack year history or greater Breast cancer screening Right thigh pain Right elbow pain High cholesterol Anxiety Surgical History Hx of wisdom tooth extraction Family History Mother Arthritis Myocardial infarction Heart diseaseSister Breast cancerFather Diabetes Lung cancerBrother Lung cancer Social History number of children: 2 sexually active: Yes Smoking Status: Former smoker (quit 02/10/24) Tobacco: How many years used: 30 Electronic Cigarette Use: not used how long ago did patient quit smoking: Quit 01/2024 second hand exposure: Yes alcohol intake: current alcohol intake frequency: a few times a month Alcohol type: wine substance use type: does not use seatbelt use: always do you feel safe at home: Yes HPI HYSTEROSCOPY D C CONSULT Details: FELICITY VILLA is a 59 year old who presents for discussion about postmenopausal bleeding that started after her recent pap smear. She was found to have a mass at ther cervical os that was attempted to be removed at her annual. The attempt was unsuccessful and she is now here to discuss surgical removal. She states that since the office attempt to remove the mass. History 2 Elective abortions Hx Para 2 Spontaneous abortions Hx # Term Pregnancies Ectopic pregnancies Hx # Pregnancies Multiple births # of living children 2 ROS Const ROS Unobtainable: All systems reviewed are unremarkable except as noted in H Resp Resp: Reports system reviewed and no additional complaints, except as documented; Denies cough GI GI: Reports as per HPI Psych Psych: Reports system reviewed and no additional complaints, except as documented Exam Const General: cooperative, healthy appearing, comfortable and no acute distress Resp Effort Inspection: normal respiratory effort Skin General: no rashes or lesions noted Psych Appearance: grossly normal Speech and Movement: speech and movement normal Coding Level of Care Code Off vis,est,level 4 Diagnoses Postmenopausal bleeding N95.0 Vaginal atrophy N95.2 Polyp at cervical os N84.1 Assessment and Plan Assessment and Plan (1) Postmenopausal bleeding: Status: Acute Plan: After discussing the patient's diagnosis and treatment plan options, patient wishes to proceed with surgical management. I have discussed with the patient the risks, benefits, and a (more content notincluded)...[facility]07-31-2024 NoteHNO ID: [id number] Author: FRANCISCA RIVERA MD Service: ? Author [...] See resident's note for further details. Francisca Rivera, [facility]07-31-2024 History of Present illness Narrative* Francisca Rivera MD - 04/22/2024 9:22 AM EDT Felicity Villa presents today for follow-up of her left fibula shaft fracture, managed nonoperatively. The patient has been ambulating in normal shoes with a knee sleeve. She walked over a mile this morning. She discontinued the use of her hinged knee brace due to pain from the brace pushing onher lateral lower leg. Her pain is well-controlled today but she does endorse some pain with ambulation. She is taking vitamin D but not calcium. Patient denies wound issues or drainage, denies feveror chills, and denies paresthesias. Physical Exam: General: [...] well today. Her fracture is healing on x- rays today, and her knee exam is benign. [...] details. Francisca Rivera MD [facility] Telephone encounter Note * Telephone Encounter - Maribel Mae - 03/31/2024 9:52 AM EDT Patient called because she completed her MRI on 03/25/24 and would like a call back about the results. # [phone] Assessment and Plan: Patient is a 58 year old female Other closed fracture of shaft of left fibula, initial encounter [place] stress view show maintained ankle mortise and [...] PA. See PA's note for further details. [facility]07-09-2024 Miscellaneous Notes* Telephone Encounter - Maribel Mae - 03/31/2024 9:52 AM EDT Patient called because she completed her MRI on 03/25/24 and would like a call back about the results. # [phone] Assessment and Plan: Patient is a 58 year old female Other closed fracture of shaft of left fibula, initial encounter [place] stress view show maintained ankle mortise and [...] note for further details. [facility] History of Present illness Narrative* Nani Evans RT(R) - 03/25/2024 11:20 AM EDT Radiology Service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 Auto-Generate d Referral 04/22/2024 05/22/2025 1 1 [facility] for visit Narrative* Diagnostic Procedure Only (Routine) - Closed Specialty Diagnoses / Procedures Referred By Contac t Referred To Contact XR IMAGING Diagnoses Other closed fracture of shaft of left fibula, initial encounter Procedures XR ANKLE 1V LEFT RADIOLOGIC EXAMINATION ANKLE 2 VIEWS Judd Sandoval PA-C [address] [place] [address] Xr Imaging [place] [address] Referral ID Status Reason Start Date Expiration Date V isits Requested Visits Authorized [id number] Closed Auto-Generate d Referral 03/09/2024 04/08/2025 1 1 [facility] for visit Narrative* Diagnostic Procedure Only (Urgent) - Closed Specialty Diagnoses / Procedures Referred By Contac t Referred To Contact XR IMAGING Diagnoses Left leg pain Procedures XR TIBIA FIBULA 2V AP/LAT LEFT RADIOLOGIC EXAMINATION TIBIA & FIBULA 2 VIEWS [facility] [address] [place] [address] Xr Imaging [place] [address] Referral ID Status Reason Start Date Expiration Date V isits Requested Visits Authorized [id number] Closed Auto-Generate d Referral 03/07/2024 04/06/2025 1 1 [facility] Family History No Family History Records FoundUnknown Family Member Name Dates Details Family Members [...] Comments:breast cancer at ag e 53 Status:Active Relationship Condition Age at Onset Recorded Date/T marita mother Arthritis Unknown Myocardial infarction Unknown Cardiac disease Unknown sister Malignant neoplasm of breast Unknown father Diabetes mellitus Unknown Malignant neoplasm of lung Unknown brother Malignant neoplasm of lung Unknown Instructions Name Dates Details How to access [...] Informa tion Online using Patient Portal and 3rd [employer] Apps Indication:Smoker Start:27-Oct-2020 Instruction Type:Patient Education [...] Instruction Type:Provider Instructions for Treatment Advance Directives No Advanced Directives Records Found Name Dates Details Immunization Registry [place] - Effective on 07/29/2019. Expiration date unspecified Effective:29-Jul-2019 Name Dates Details Immunization Registry [place] - Effective on 07/29/2019. Expiration date unspecified Effective:29-Jul-2019 Advance Directive Response Recorded Date/ Time Living Will No November 26, 2020 3:49pm Power of Return To Vendor No November 26 3:49pm Advance Directive Response Recorded Date/ Time Living Will No April 23, 2023 2:01pm Power of Return To Vendor No April 23 2:01pm Chief Complaint and Reason for Visit Chief Complaint 3 M FU Lung cancer screening NICOTINE DEPENDENCE Reason for Visit Breast cancer screen ing Right elbow pain Generalized anxiety disorder Hypertension [id number] Tobacco use disorder, continuous Chief Complaint 5 Mo F/U SCREENING Reason for Visit Breast cancer screen ing Generalized anxiety disorder Hypertension Chief Complaint 5 Mo F/U SCREENING 3 m fu Reason for Visit Breast cancer screen ing Generalized anxiety disorder Hypertension Elevated blood sugar Flu vaccine need Hypertension Right shoulder pain Chief Complaint 3 M FU Lung cancer screening SCREENING Reason for Visit Hyperlipidemia Generalized anxiety disorder Hypertension Right shoulder pain [id number] Tobacco use disorder, continuous Chief Complaint Lung cancer screenin g SCREENING 5 M FU Reason for Visit [id number] Tobacco use disorder, continuous Abdominal pain Blood in stool Change in skin mole Health care maintenance Generalized anxiety disorder Hypertension Chief Complaint Lung cancer screenin g SCREENING 5 M FU ABD PAIN Reason for Visit [id number] Tobacco use disorder, continuous Abdominal pain Blood in stool Change in skin mole Health care maintenance Generalized anxiety disorder Hypertension Chief Complaint Lung cancer screenin g SCREENING 5 M FU ABD PAIN C-Scope/Blood in stool/Abdominal Pain RIGHT SIDE/BACK/POSS KIDNEY PAIN EORDER RIB CAGE/ BACK PAIN SCREENING Reason for Visit [id number] Tobacco use disorder, continuous Abdominal pain Blood in stool Change in skin mole Health care maintenance Generalized anxiety disorder Hypertension BRBPR (bright red blood per rectum) Right upper quadrant pain Abdominal pain Muscular abdominal pain in right flank Chief Complaint Admit Date 6 month med check December 23, 2024 8:38 am concern for sinus infection January 04, 2025 8:06am Reason for Visit Admit Date Postmenopausal bleeding December 23, 2024 8:38am Generalized anxiety disorder December 23, 2024 8:38am Hyperlipidemia December 23, 2024 8:38 am Hypertension December 23, 2024 8:38 am Vaginal atrophy December 23, 2024 8:38 am Reason for Referral Specialty Diagnoses / Procedures Referred By Cyndy topete Referred To Contact [facility] Diagnoses Closed fracture of shaft of left fibula with routine healing, unspecified fracture morphology, subsequent encounter Procedures CONSULT TO PHYSICAL THERAPY PHYSICAL THERAPY EVALUATION HIGH COMPLEX 45 MINS Francisca Rivera MD [address] [place] [address] [facility] [place] [id number] [place] [address] Referral ID Status Reason Start Date Expiration Date Visits Requested Visits Authorized [id number] Pending Review Auto-Generat ed Referral 04/22/2024 04/22/2025 1 1 Specialty Diagnoses / Procedures Referred By Contac t Referred To Contact XR IMAGING Diagnoses Closed fracture of shaft of left fibula with routine healing, unspecified fracture morphology, subsequent encounter Procedures XR TIBIA FIBULA 2V AP/LAT LEFT RADIOLOGIC EXAMINATION TIBIA & FIBULA 2 VIEWS Francisca Rivera MD [address] [place] [address] Xr Imaging [place] [address] Referral ID Status Reason Start Date Expiration Date V isits Requested Visits Authorized [id number] Closed Auto-Generate d Referral 04/22/2024 05/22/2025 1 1 Specialty Diagnoses / Procedures Referred By Cyndy t Referred To Contact [facility] Diagnoses Other closed fracture of shaft of left fibula, initial encounter Procedures CONSULT TO PHYSICAL THERAPY PHYSICAL THERAPY EVALUATION [facility] COMPLEX 45 MINS Judd Sandoval PA-C [address] [place] [id number] [facility] [place] [address] [place] [address] Referral ID Status Reason Start Date Expiration Date Visits Requested Visits Authorized [id number] Pending Review Auto-Generat ed Referral 03/11/2024 03/11/2025 1 1 Specialty Diagnoses / Procedures Referred By Cyndy topete Referred To Contact MR IMAGING Diagnoses Other closed fracture of shaft of left fibula, initial encounter Procedures MRI KNEE WO IVCON LEFT MRI ANY JT LOWER EXTREM W/O CONTRAST MATRL Judd Sandoval PA-C [address] [place] [id number] Mr Imaging [place] [address] Referral ID Status Reason Start Date Expiration Date Visits Requested Visits Authorized [id number] Authorized Auto-Generat ed Referral 03/11/2024 04/10/2025 1 1 Specialty Diagnoses / Procedures Referred By Cyndy t Referred To Contact Orthopedics Diagnoses Other closed fracture of shaft of left fibula, initial encounter Procedures CONSULT TO ORTHOPAEDICS OFFICE/OUTPATIENT [facility] MDM 60 MINUTES [facility] [address] [place] [address] Referral ID Status Reason Start Date Expiration Date Visits Requested Visits Authorized [id number] Authorized PCP Requested Referral 03/07/2024 03/07/2025 1 1 Specialty Diagnoses / Procedures Referred By Contac t Referred To Contact XR IMAGING Diagnoses Left leg pain Procedures XR TIBIA FIBULA 2V AP/LAT LEFT RADIOLOGIC EXAMINATION TIBIA & FIBULA 2 VIEWS [facility] [address] [place] [address] [place] [address] Referral ID Status Reason Start Date Expiration Date V isits Requested Visits Authorized [id number] Closed Auto-Generate d Referral 03/07/2024 04/06/2025 1 1 Summary Purpose Additional Source Comments Goals (unrecognized section and content) Goals may be documented in a n alternate sectionGoals may be documented in an alternate sectionGoals may be documented in an alternate sectionGoals may be documented in an alternate sectionGoals may be documented in an alternate sectionGoals may be documented in an alternate section No data available for this section No data available for this sectionGoals may be documented in an alternate section Care Teams (unrecognized sec tion and content) Team Status: Active Member Role Status Dates Dr. Noelle Bowden DO Family Provider Active Dr. Naomie Martini MD Primary Care Provider Active Team Status: Inactive Member Role Status Dates Dr. Naomie Martini MD Primary Care Jany chowdhury, Attending Provider, Referring Provider Active Team Status: Inactive Member Role Status Dates Dr. Naomie Martini MD Primary Care Provider, Refer ring Provider Active Deedee Ring INTERNET SALES CONSULTANT, INTERNET SALES CONSULTANT-C Attending Provider Active Team Status: Inactive Member Role Status Dates Dr. Naomie Martini MD Primary Care Provider Active Deedee Ring INTERNET SALES CONSULTANT, INTERNET SALES CONSULTANT-C Attending Provider, Referring Provider Active Team Status: Inactive Member Role Status Dates Dr. Naomie Martini MD Primary Care Provider, Refer ring Provider Active Dr. Marly Dennis MD Attending Provider Active Team Status: Active Member Role Status Dates Dr. Naomie Martini MD Primary Care Provider, Refer ring Provider Active Dr. Marly Dennis MD Attending Provider, Other Pro vider Active Team Status: Inactive Member Role Status Dates Dr. Naomie Martini MD Primary Care Provider, Refer ring Provider Active MEGHNA Jeffery Attending Provider Active Team Status: Inactive Member Role Status Dates Dr. Naomie Martini MD Primary Care Provider Active Nithin Wayt PA, PA Attending Provider, Referring Prov ider Active Fleet Salesperson Relationship Specialty Start Date End Date Naomie Martini MD [address] [place] [address] PCP - General Internal Medicine 03/25/24 Fleet Salesperson Relationship Specialty Start Date End Date Naomie Martini MD [address] [place] [address] PCP - General Internal Medicine 03/25/24 Fleet Salesperson Relationship Specialty Start Date End Date Naomie Martini MD [address] [place] [address] PCP - General Internal Medicine 03/25/24 Fleet Salesperson Relationship Specialty Start Date End Date Naomie Martini MD [address] [place] [address] PCP - General Internal Medicine 03/25/24 Team Status: Inactive Member Role Status Dates Dr. Naomie Martini MD Primary Care Provider Active Start: December 23, 2024 End: December 23, 2024 Dr. Naomie Martini MD Attending Provider Active Start: December 23, 2024 End: December 23, 2024 Dr. Naomie Martini MD Referring Provider Active Start: December 23, 2024 End: December 23, 2024 Team Status: Inactive Member Role Status Dates Dr. Naomie Martini MD Primary Care Provider Active Start: December 30, 2024 End: December 30, 2024 Dr. Naomie Martini MD Attending Provider Active Start: December 30, 2024 End: December 30, 2024 Dr. Naomie Martini MD Referring Provider Active Start: December 30, 2024 End: December 30, 2024 Team Status: Inactive Member Role Status Dates Dr. Naomie Martini MD Primary Care Provider Active Start: January 04, 2025 End: January 04, 2025 Dr. Naomie Martini MD Referring Provider Active Start: January 04, 2025 End: January 04, 2025 Ignacio COFFMAN, PA Attending Provider Active Start: January 04, 2025 End: January 04, 2025 Source Comments (unrecognize d section and content) In the event this informatio n is protected by the Federal Confidentiality of Alcohol and Drug Abuse Patient Records regulations: The Federal rules restrict any use of the information to criminally investigate or prosecute any alcohol or drug abuse patient.[facility] the event this information is protected by the Federal Confidentiality of Alcohol and Drug Abuse Patient Records regulations: The Federal rules restrict any use of the information to criminally investigate or prosecute any alcohol or drug abuse patient.[facility] the event this information is protected by the Federal Confidentiality of Alcohol and Drug Abuse Patient Records regulations: The Federal rules restrict any use of the information to criminally investigate or prosecute any alcohol or drug abuse patient.[facility] the event this information is protected by the Federal Confidentiality of Alcohol and Drug Abuse Patient Records regulations: The Federal rules restrict any use of the information to criminally investigate or prosecute any alcohol or drug abuse patient.[facility] HospitalIn the event this information is protected by the Federal Confidentiality of Alcohol and Drug Abuse Patient Records regulations: The Federal rules restrict any use of the information to criminally investigate or prosecute any alcohol or drug abuse patient.[facility]In the event this information is protected by the Federal Confidentiality of Alcohol and Drug Abuse Patient Records regulations: The Federal rules restrict any use of the information to criminally investigate or prosecute any alcohol or drug abuse patient.[facility] HospitalIn the event this information is protected by the Federal Confidentiality of Alcohol and Drug Abuse Patient Records regulations: The Federal rules restrict any use of the information to criminally investigate or prosecute any alcohol or drug abuse patient.[facility] the event this information is protected by the Federal Confidentiality of Alcohol and Drug Abuse Patient Records regulations: The Federal rules restrict any use of the information to criminally investigate or prosecute any alcohol or drug abuse patient.[facility] the event this information is protected by the Federal Confidentiality of Alcohol and Drug Abuse Patient Records regulations: The Federal rules restrict any use of the information to criminally investigate or prosecute any alcohol or drug abuse patient.[facility] the event this information is protected by the Federal Confidentiality of Alcohol and Drug Abuse Patient Records regulations: The Federal rules restrict any use of the information to criminally investigate or prosecute any alcohol or drug abuse patient.[facility] Reason for Visit (unrecogniz ed section [...] NEW HIGH MDM 60 MINUTES [facility] [address] [place] [address] Referral ID Status Reason Start Date Expiration Date V isits Requested Visits Authorized [id number] Closed PCP Requested Referral 03/07/2024 03/07/2025 1 1 Specialty Diagnoses / Procedures Referred By Cyndy topete Referred To Contact MR IMAGING Diagnoses Other closed fracture of shaft of left fibula, initial encounter Procedures MRI KNEE WO IVCON LEFT MRI ANY JT LOWER EXTREM W/O CONTRAST Judd Charles PA-C [address] [place] [address] [place] [id number] Referral ID Status Reason Start Date Expiration Date V isits Requested Visits Authorized [id number] Closed Auto-Generate d Referral 03/11/2024 04/10/2025 1 1 Reason Comments Results - Mri Reason Comments Established Patient Fracture Pain Swelling Numbness INFORMATION SOURCE (unrecogn ized section and content) DATE CREATED AUTHOR 04/24/2024 [facility] DATE CREATED AUTHOR AUTHOR'S ORGANIZ ATION 04/24/2024 [facility] DATE CREATED AUTHOR AUTHOR'S ORGANIZ ATION 04/28/2024 [facility] DATE CREATED AUTHOR AUTHOR'S ORGANIZ ATION 07/26/2024 [facility] DATE CREATED AUTHOR AUTHOR'S ORGANIZ ATION 01/07/2025 [facility] FOR RECORDS PERTAINING TO PATIENTS WHO ARE [...] BE BASED ON THE PRIMARY CLINICAL RECORDS. [employer] provides no warranty or guarantee of the accuracy or completeness of information in this document.
--- NOTE | 2025-04-16 20:40 | RAD_ITS ---
PROCEDURE: CHEST 1 VIEW (PORTABLE) 04/16/2025 REASON FOR EXAM: CHEST PAIN TECHNIQUE: Frontal view of the chest. COMPARISON: CT chest 02/25/2024 FINDINGS: Lungs/Pleura: Clear. No pneumothorax or pleural effusion. Heart/Mediastinum: Normal in size. Bones/Soft tissues: No significant abnormality. RAD/Chest 1 View (Portable) IMPRESSION: No acute cardiopulmonary disease. Reading Location: [id number]
[2025-04-16] MEDS: Nitroglycerin SL (ED/IMG/CATH) 0.4 MG TABLET SL (20:51)
--- NOTE | 2025-04-16 20:57 | ED.RN ---
currently refusing next dose of nitro;
[2025-04-16 21:19] LABS: Anion Gap 12 (5-15); BUN 18 mg/dL (4-19); BUN/Creat Ratio 25.5 RATIO (10-20); Calcium,Total 10.0 mg/dL (7.6-11.0); Carbon Dioxide 26.7 mmol/L (21.0-32.0); Chloride 98 mmol/L (98-108); Estimated Creatinine Clearance 74.72 ml/min (50-250); Glucose 106 mg/dL (70-99); Potassium 3.7 mmol/L (3.3-5.1); Troponin T High Sensitivity < 6 ng/L (<=14)
[2025-04-16 21:23] LABS: Hematocrit 39.0 % (37-47); Hemoglobin 14.2 g/dL (12.0-15.0); Immature Granulocytes Count 0.020 X10^3/uL (0.0-0.0); Mean Corp Hgb Conc 36.4 g/dL (32-36); Mean Corpuscular Volume 78.5 fL (81-99); Mean Platelet Vol. 11.9 fl (6.2-12.0); NRBC Flagged by Analyzer 0 % (0-5); Platelet Count 218 K/mm3 (150-450); RBC Distribution Width CV 15.5 % (11.6-14.6); RBC Distribution Width SD 43.7 fl (35.1-43.9); Red Blood Count 4.97 M/mm3 (4.2-5.4); White Blood Count 7.9 K/mm3 (4.4-11.0)
[2025-04-16 22:53] LABS: Troponin T High Sens 2 HR < 6 ng/L (<=14)
== END 2025-04-16 23:10 | disposition home or self-care (01) ==
PROVIDERS: Emergency Provider Emergency Medicine; PCP Internal Medicine; Visit Provider Emergency Medicine
DX: R07.9 Chest pain, unspecified (principal); J43.9 Emphysema, unspecified; Z87.891 Personal history of nicotine dependence; I10 Essential (primary) hypertension; E78.00 Pure hypercholesterolemia, unspecified; R06.00 Dyspnea, unspecified; R42 Dizziness and giddiness; R35.0 Frequency of micturition; R51.9 Headache, unspecified
CPT/HCPCS: 71045; 80048; 84484; 85025; 93005; 99285; A4216

== ENCOUNTER → 2025-05-03 | Outpatient (CLI) | payer OTHER, SELFPAY ==
--- NOTE | 2025-05-03 10:07 | BI_ITS ---
EXAM: SCRN MAMM (CAD)W/MAURICE BILAT DATE: 05/03/2025 CLINICAL HISTORY: F, Age 59 y/o , SCREENING FOR BREAST CANCER TECHNIQUE: SCRN MAMM (CAD)W/MAURICE BILAT COMPARISON: Prior exam(s) were compared FINDINGS: TISSUE DENSITY: The breasts are heterogeneously dense, which may obscure small masses. Bilateral Breast Mammographic Findings: No suspicious masses, calcifications or other abnormalities are identified. BI/SCRN MAMM (CAD)W/MAURICE BILAT IMPRESSION: No mammographic evidence of malignancy in either breast OVERALL FINAL ASSESSMENT BI-RADS 1: NEGATIVE. RECOMMENDATION: Routine annual follow-up in 1 Year.... A letter with findings and recommendations will be mailed to the patient. Reading Location: [id number]
--- NOTE | 2025-05-03 10:07 | BI_ITS ---
EXAM: SCRN MAMM (CAD)W/MAURICE BILAT DATE: 05/03/2025 CLINICAL HISTORY: F, Age 59 y/o , SCREENING FOR BREAST CANCER TECHNIQUE: SCRN MAMM (CAD)W/MAURICE BILAT COMPARISON: Prior exam(s) were compared FINDINGS: TISSUE DENSITY: The breasts are heterogeneously dense, which may obscure small masses. Bilateral Breast Mammographic Findings: No suspicious masses, calcifications or other abnormalities are identified. BI/SCRN MAMM (CAD)W/MAURICE BILAT IMPRESSION: No mammographic evidence of malignancy in either breast OVERALL FINAL ASSESSMENT BI-RADS 1: NEGATIVE. RECOMMENDATION: Routine annual follow-up in 1 Year.... A letter with findings and recommendations will be mailed to the patient. Reading Location: [id number]
--- OUTSIDE RECORDS SUMMARY | 2025-05-03 10:47 | XMS RPT_ITS | CCD ---
Author Organization [facility] Care Team Providers Care Event Sales Representative Name Role Phone Noelle Bowden Unavailable Fortino Irwin Unavailable [phone] Ger Porras Unavailable Physical Therapy, [facility] Unavailable [phone] Carmen Haque Unavailable Unavailable Nani Calvin Unavailable Unavailable Unavailable Unavailable Renee Barba Unavailable Unavailable Ophelia Mayo Unavailable Unavailable Dr. Naomie Martini Primary Care Provider [phone] Dr. Naomie Martini Attending Provider [phone] Dr. Naomie Martini Referring Provider [phone] María Elena TRAY LINE WORKER, TRAY LINE WORKER-C Deedee Attending Provider Dr. Naomie Martini Primary Care Provider [phone] Dr. Naomie Martini Attending Provider [phone] Dr. Naomie Martini Referring Provider [phone] Dr. Naomie Martini Primary Care Provider [phone] Dr. Naomie Martini Attending Provider [phone] Dr. Naomie Martini Referring Provider [phone] María Elena TRAY LINE WORKER, TRAY LINE WORKER-C Deedee Attending Provider Dr. Naomie Martini Primary Care Provider [phone] María Elena TRAY LINE WORKER, TRAY LINE WORKER-C Deedee Referring Provider Dr. Naomie Martini Attending Provider [phone] Dr. Naomie Martini Referring Provider [phone] Dr. Marly Dennis Attending Provider Dr. Marly Dennis Other Provider MEGHNA oH Attending Provider LIANET PÉREZ, NAOMIE B Primary Care Physician [phone] Unavailable Primary Care Provider UnavailNaomie De La Rosa MD B Primary Care Provider [phone] PRINCESS FLEMING Attending Unavailable FRANCISCA RIVERA Attending Unavailable KRISTALULJUDD SHAH Referring Unavailable JUDD SANDOVAL Attending Unavailable OLEGHE, EFEWONGBE B Primary Care Unavailable FRANCISCA RIVERA Attending Unavailable OLEGHE, EFEWONGBE B Primary Care Unavailable FRANCISCA RIVERA Referring Unavailable FÉLIX ROMAN MD Attending Unavailable LIANET PÉREZ, LUCIEBE B Primary Care UnavailFRANCISCA Delarosa MD Attending Unavailable LUCIE MARTINI MDBE B Primary Care UnavailFRANCISCA Delarosa MD Attending Unavailable NAOMIE MARTINI MD B Primary Care UnavailDr. Naomie Cheung MD Primary Care Provider Dr. Naomie Martini MD Attending Provider [phone] Dr. Naomie Martini MD Referring Provider [phone] Ignacio Diego Attending Provider Dr. Angel Angel DO Emergency Provider [phone] Oleghe, Efewongbe Primary Care Unavailable Angel Angel Attending Unavailable Lyn Slaughter Referring Unavailabl e Lyn Slaughter Attending Unavailabl e Oleghe, Efewongbe Primary Care Unavailable Katie Eid Referring Unavailable Katie Eid Attending Unavailable Oleghe, Efewongbe Primary Care Unavailable Oleghe, Efewongbe Primary Care Unavailable Oleghe, Efewongbe Referring Unavailable Elise Marin Attending Unavailable Oleghe, Efewongbe Primary Care Unavailable Oleghe, Efewongbe Referring Unavailable Lyn Slaughter Attending Unavailabl e Vande Lyn Merlos Consulting Unavailabl e Franciscoe VelLyn hatfield Referring Unavailabl e Vande Lyn Merlos Attending Unavailabl e Oleghe, Efewongbe Primary Care Unavailable Oleghe, Efewongbe Primary Care Unavailable Oleghe, Efewongbe Referring Unavailable Ignacio Diego Attending Unavailable Oleghe, Efewongbe Primary Care Unavailable Oleghe, Efewongbe Referring Unavailable Oleghe, Efewongbe Attending Unavailable Oleghe, Efewongbe Primary Care Unavailable Oleghe, Efewongbe Referring Unavailable Ignacio Diego Attending Unavailable Oleghe, Efewongbe Referring Unavailable BarkKatie faust Attending Unavailable Oleghe, Efewongbe Primary Care Unavailable Oleghe, Efewongbe Referring Unavailable Vande Lyn Merlos Attending Unavailabl e Oleghe, Efewongbe Primary Care Unavailable Oleghe, Efewongbe Referring Unavailable Oleghe, Efewongbe Attending Unavailable Oleghe, Efewongbe Primary Care Unavailable Oleghe, Efewongbe Referring Unavailable Oleghe, Efewongbe Attending Unavailable Oleghe, Efewongbe Primary Care Unavailable Katie Eid Referring Unavailable BarkKatie faust Attending Unavailable Oleghe, Efewongbe Primary Care Unavailable Oleghe, Efewongbe Primary Care Unavailable Oleghe, Efewongbe Attending Unavailable Lyn Slaughter Referring Unavailabl e Vande VelLyn hatfield Attending Unavailabl e Oleghe, Efewongbe Primary Care Unavailable Allergies Allergy [...] every six hours as needed for pain [place] 325- 5 mg oral tablet Dose = [...] sixty ascorbic acid 500 mg oral tablet (11 sources) Vitamin C Start: 07-29-2024 take 1 [...] mouth. Active azithromycin 250 mg oral tablet (4 sources) Macrolide Antimicrobial Start: 01-04-2025 Azithromycin 250 mg tablet Active 250 mg PO .COMPLEX 12 0 January 04, 2025 12:00am 2 tablets (500 mg) on day 1, then 1 tablet daily on days 2 through 11 Start: 06-14-2023 End: 02-06-2024 take 2-5 tablets by mouth once daily Azithromycin 250 mg tablet Discontinued 0 PO .COMPLEX 6 0 June 14, 2023 12:00am February 06, 2024 2:03pm take 500 mg today (day 1), then 250 mg for 4 days (days 2-5) PO Calcium (2 sources) Phosphate Binder, Calcium Start: 07-29-2024 take 1 [...] (20 sources) Thiazide Diuretic Start: 12-27-2020 End: 02-23-2025 take 1 tablet by mouth once daily in the morning Hydrochlorothiazide 25 mg tablet Active 25 mg PO EVERY MORNING 90 February 23, 2025 12:51pm Start: 11-26-2020 End: 12-27-2020 Hydrochlorothiazide 25 MG [...] tablet Discontinued 25 mg PO EVERY MORNING 30 November 21, 2020 1:00am November 26, 2020 2:00pm mecobalamin 1 mg chewable tablet (11 sources) Start: 03-15-2023 take 5 tablets by [...] 02/28/24 Stop Date: 03/05/24 Status: Ordered Zinc (9 sources) Start: 12-19-2021 take 50 mg by [...] Quantity: 35 {QS} Refills: 0 Ordered: 28-Dec-2015 Kaitlynnceliaalvin CALIMei Start : 28-Dec-2015 End : 04-Jan-2016 Inactive [...] with Food atorvastatin 40 mg oral tablet (20 sources) HMG-CoA Reductase Inhibitor Start: 11-28-19 End: 07-14-20 take 1 tablet by mouth at bedtime Atorvastatin 40 mg tablet Discontinued 40 mg PO AT BEDTIME 90 1 December 27, 2020 9:46am July 14, 2021 8:16am On Hold: Order Changed baclofen 10 mg oral tablet (9 sources) gamma-Aminobutyric Acid-ergic Agonist Start: 07-14-20 End: 10-25-19 take 1 tablet by mouth twice daily as needed for muscle spasms Baclofen 10 mg tablet Discontinued 10 mg PO TWICE A DAY as needed for muscle spasm 60 0 July 14, 2021 12:00am October 25, 2021 10:03am benzonatate 100 mg oral capsule (4 sources) Non-narcotic Antitussive Start: 12-28-19 End: 02-09-20 take 1 capsule by mouth three times daily as needed for cough TESSALON PERLES, 100MG (Oral Capsule) 1 (one) Capsule tid prn for cough for 0 days Quantity: 30 {Capsule} Refills: 0 Ordered: 09-Feb-2016 Carmen Haque RN Start : 28-Dec-2015 End : 09-Feb-2016 Inactive augmented betamethasone 0.5 mg/ml topical cream (4 sources) Corticosteroid Start: 10-27-19 Diprolene AF 0.05 % External Cream apply sparingly to rash Cream bid for 0 days Quantity: 15 {Gram} Refills: 0 Ordered: 27-Oct-2020 Noelle Bowden DO, DO, Kathleen Start : 27-Oct-2020 Active Start: 12-30-2013 End: 07-01-2015 DIPROLENE AF, 0.05% (Externa l Cream) apply sparingly to rash Cream Cream bid for 0 days Quantity: 15 {Gram} Refills: 0 Ordered: 01-Jul-2015 Dede Young LPN Start : 30-Dec-2013 End : 01-Jul-2015 Inactive [...] mg PO TWICE A DAY 180 90 1 September 19, 2022 5:03pm October 19, 2022 9:32am calcium ascorbate 500 mg oral tablet (9 sources) Start: 11-07-2020 End: 12-27-2020 take 1 [...] Inactive cyclobenzaprine hydrochloride 10 mg oral tablet (7 sources) Muscle Relaxant Start: 04-24-2023 End: 02-06-2024 take 1 tablet by mouth three times daily as needed for muscle spasms Cyclobenzaprine 10 mg tablet Discontinued 10 mg PO THREE TIMES A DAY as needed for muscle spasm 90 3 April 24, 2023 12:00am February 06, 2024 [...] DO, DO, Kathleen Start : 27-Oct-2020 Active escitalopram 5 mg oral tablet (11 sources) Serotonin Reuptake Inhibitor Start: 12-27-2020 End: 05-26-2021 take 1 tablet by mouth once daily Escitalopram Oxalate 5 mg tablet Discontinued 5 mg PO DAILY 30 December 27, 2020 12:00am May 26, 2021 [...] 09-Feb-2016 Inactive ibuprofen 800 mg oral tablet (3 sources) Nonsteroidal Anti-inflammatory Drug Start: 04-22-2023 End: 08-18-2024 take 1 tablet by mouth three times daily as needed for pain Ibuprofen 800 mg tablet Discontinued 800 mg PO THREE TIMES A DAY as needed for pain 21 April 22, 2023 12:00am August 18, 2024 10:12am inulin 200 mg / lactobacillus rhamnosus gg [id number] unt oral capsule (4 sources) Start: 04-19-2011 [...] 13-Jun-2018 Active Comments: Medication taken as needed. [id number] Start: 09-28-2017 End: 04-03-2022 take 0.5 mg by mouth once daily as needed for anxiety Lorazepam (Ativan) 1 mg tablet Discontinued 0.5 mg PO DAILY NEEDED as needed for Anxiety May 26, 2021 9:21am April 03, 2022 8:35am Comment on above: Medication taken as needed. [id number] meloxicam 15 mg oral tablet (9 sources) Nonsteroidal Anti-inflammatory Drug Start: 07-14-20 End: 10-25-19 take 1 tablet by mouth once daily Meloxicam 15 mg tablet Discontinued 15 mg PO DAILY 22 10July 14, 2021 12:00am October 25, 2021 10:03am metaxalone 800 mg oral tablet (4 sources) Start: 06-25-20 End: 08-22-20 take 1 tablet by mouth three times [...] DAILY July 17, 2022 12:00am Multivitamin tablet (2 sources) Start: 07-17-2022 End: 01-22-2023 Multivitamin tablet Discontinued [...] 24 hr nicotine 0.583 mg/hr transdermal system (2 sources) Cholinergic Nicotinic Agonist Start: 02-06-2024 End: 02-25-2024 apply 1 dose transdermal route every twenty-four hours Nicotine 14 mg/24 hr patch 24 hour Discontinued 1 NMA TD DAILY 28 3 February 06, 2024 12:00am February 25, 2024 12:58pm nitrofurantoin, macrocrystals 25 mg / nitrofurantoin, monohydrate 75 mg oral capsule (13 sources) Nitrofuran Antibacterial Start: 09-28-2017 End: 10-03-2017 take 1 capsule by mouth every twelve hours at mealtime Nitrofurantoin Monohyd/M-Cryst 100 mg capsule Discontinued 1 NMA PO Q12H 10 5 0 September 28, 2017 1:00am October 02, 2017 1:00am October 03, 2017 1:06am Urinary tract infection, site not specified administer with a meal/food; swallow whole; do [...] Inactive phenazopyridine hydrochloride 100 mg oral tablet (9 sources) Start: 09-28-2017 End: 09-29-2017 take 1 tablet by mouth three times daily at mealtime for pain Phenazopyridine (Pyridium) 100 mg tablet Discontinued 100 mg PO THREE TIMES A DAY as needed for pain 7 0 0 September 28, 2017 1:00am September 28, [...] 0 Ordered: 22-Aug-2012 Noelle Bowden DO, DO, Noelle Start : 24-Jul-2012 End : 29-Jul-2012 Inactive saccharomyces boulardii 250 mg oral capsule (2 sources) Start: 06-17-2024 End: 07-29-2024 take 1 capsule by mouth twice daily Saccharomyces Boulardii (Daily Probiotic (S. Boulardii)) 250 mg capsule Discontinued 250 mg PO TWICE A DAY June 17, 2024 12:00am July 29, 2024 4:00pm tobramycin 3 mg/ml ophthalmic solution (2 sources) Aminoglycoside Antibacterial Start: 09-02-2024 End: 12-23-2024 Tobramycin 0.3 % drops Discontinued 1 NMA OPHTHALMIC Q2H 5 0 September 02, 2024 1:00am December 23, 2024 8:45am to affected eye while awake first 24 hours, then 3x/day on days 2-5 vitamin b12 0.5 mg oral tablet (9 sources) Vitamin B12 Start: 11-07-2020 End: 12-27-2020 [...] pelvis] Onset: 08-28-2011 06-08-2019 Episodic Allergic reactions (17 sources) Dermatitis; Translations: [Eczema] 06-08-2019 Episodic Anxiety disorders (20 sources) Anxiety; Translations: [Generalized anxiety disorder] Onset: 08-10-2024 06-08-2019 Chronic Chronic obstructive pulmonary disease and bronchiectasis (1 source) Emphysema, unspecified; Translations: [Emphysema, unspecified] Onset: 04-20-2025 Chronic Diabetes mellitus without complication (16 sources) Impaired fasting glycaemia; Translations: [Hyperglycemia] 06-08-2019 Episodic Disorders of lipid metabolism (20 sources) Hypercholesterolemia; Translations: [Pure hypercholesterolemia, unspecified] 07-29-2019 Chronic Essential hypertension (20 sources) Hypertensive disorder; Translations: [Essential (primary) hypertension] Onset: 01-05-2025 Chronic Fracture of lower limb (18 sources) Closed fracture of shaft of fibula; Translations: [Other fracture of shaft of left fibula, initial encounter for closed fracture] Onset: 03-07-2024 03-07-2024 Episodic Gastrointestinal hemorrhage (12 sources) Hematochezia; Translations: [Melena] 03-15-2023 Episodic Genitourinary symptoms and ill-defined conditions (20 sources) Urinary frequency; Translations: [Dysuria] Resolved: 05-24-2011 06-08-2019 Episodic Headache; including migraine (8 sources) Headache; Translations: [Chronic nonintractable headache, unspecified headache type] 06-08-2019 Episodic Comment on above: think sinus headache is better Headache; including migraine (4 sources) Headache; including migraine Immunizations and screening for infectious disease (8 sources) Needs influenza immunization; Translations: [Encounter for immunization] Episodic Menopausal disorders (9 sources) Postmenopausal bleeding; Translations: [Postmenopausal bleeding] Onset: [...] 10-27-2020 Chronic Other and unspecified benign neoplasm (5 sources) Change in skin lesion; Translations: [Melanocytic nevi, unspecified] 03-15-2023 Episodic Other and unspecified benign neoplasm (3 sources) Melanocytic nevi, unspecified; Translations: [Benign neoplasm of skin, site unspecified] 03-15-2023 Episodic Other bone disease and musculoskeletal deformities (8 sources) Osteopenia; Translations: [Osteopenia] 06-08-2019 Episodic Other circulatory disease (4 sources) Abnormal chest sounds; Translations: [Abnormal lung sounds] 06-08-2019 Episodic Other connective tissue disease (9 sources) Thigh pain; Translations: [Pain in right thigh] 07-14-2021 Episodic Other connective tissue disease (3 sources) Right sided abdominal pain; Translations: [Myalgia, [...] 08-28-2011 08-28-2011 Chronic Other female genital disorders (2 sources) Lump of cervix; Translations: [Other specified noninflammatory disorders of cervix uteri] 08-04-2024 Episodic Other female genital disorders (2 sources) Polyp at cervical os; Translations: [Polyp of [...] Onset: 03-07-2024 Episodic Other non-traumatic joint disorders (17 sources) Pain in elbow; Translations: [Pain in right elbow] Resolved: 02-07-2009 08-22-2012 Episodic Other non-traumatic joint disorders (1 source) Pain in right elbow; Translations: [Pain in joint, upper arm] Episodic Other non-traumatic joint disorders (2 sources) Shoulder pain; Translations: [Pain in right shoulder] 07-17-2022 Episodic Other non-traumatic joint disorders (7 sources) Pain in right shoulder; Translations: [Pain in joint, shoulder region] Episodic Other nutritional; endocrine; and metabolic disorders (8 sources) Hypocalcemia; Translations: [Hypocalcemia] 06-08-2019 Chronic Other screening for suspected conditions (not mental disorders or infectious disease) (20 sources) Patient encounter status; Translations: [Encounter for screening for malignant neoplasm of respiratory organs] Onset: 06-17-2024 Episodic Other skin disorders (1 source) Eruption; Translations: [...] bacterial] 06-08-2019 Chronic Other upper respiratory infections (14 sources) Acute maxillary sinusitis; Translations: [Acute sinusitis] [...] 06-08-2019 Episodic Comment on above: had 2018 Screening and history of mental health and substance abuse codes (2 sources) Tobacco use and exposure - finding; Translations: [Personal history of nicotine dependence] 02-25-2024 Episodic Spondylosis; intervertebral disc disorders; other back problems (16 sources) Cervical radiculopathy; Translations: [Cervical radiculopathy] 06-08-2019 Chronic Spondylosis; intervertebral disc disorders; other back problems (20 sources) Low back pain; Translations: [Neck pain] Onset: 08-07-2011 Resolved: 08-22-2012 06-08-2019 Episodic Comment on above: still on going issue --did therapy , nsaid rx , and x-rays reviewed Substance-related disorders (20 sources) Smoker; Translations: [Tobacco dependence, continuous] 06-08-2019 Chronic Unclassified (20 sources) Unclassified (8 [...] Test Name Value Interpretation Reference Range Facility Troponin T HS 4 HRon 025 Trop T High Sen Normal <=14 [facility] Comment on above: Result Comment: Canc elled via OM: Order cancelled - Patient discharged Performed By: #### L 499.0043 #### [facility] [address] [place], [address] 12 Lead EKGon 04-16-2025 12 Lead EKG [facility] Cardi[facility] [address] [place] [address] 12 Lead EKG 04/16/25 1937 MR#: [id number] Acct: [id number] Name: FELICITY VILLA Rep #: [id number] : 1965 59 From: Boubacar Naik MD Attending Dr: Status: DEP ER Ordering Dr: Angel Angel DO Date: 04/16/25 Location: ED Sex: F C Admitted: Test Reason : CP Blood Pressure : */* mmHG Vent. Rate : 74 BPM Atrial Rate : 74 BPM P-R Int : 156 ms QRS Dur : 76 ms QT Int : 398 ms P-R-T Axes : 53 63 75 degrees QTcB Int : 441 ms Normal sinus rhythm ST T wave abnormality, consider anterior ischemia Abnormal ECG Confirmed by BOUBACAR NAIK MD ([id number]), dictionary editor SHARON MONCADA ([id number]) on 04/19/2025 9:01:01 AM Referred By: Confirmed By: BOUBACAR NAIK MD 04/19/25 0901 Date Boubacar Naik MD CC: Dr. Naomie Martini MD; Dr. Angel Angel DO Signed Normal [facility] Absolute lymphocyte countOrd ered By: Angel Angel on 04-16-2025 Lymphocytes Auto (Unsp spec) [#/Vol] 2.47 10*3/uL 0.83-4.51 [facility] Absolute neutrophil countOrd ered By: Angel Angel on 04-16-2025 Neutrophils (Bld) [#/Vol] 4.4 10*3/uL 2.0-7.7 [facility] Anion gap in Serum or Plasma Ordered By: Angel Angel on 04-16-2025 Anion gap [Moles/Vol] 12 mmol/L 5-15 [facility] Automated lymphocyte count a s percentage of total leukocytesOrdered By: Angel Angel on 04-16-2025 Lymphocytes/100 WBC Auto (Unsp spec) 31.1 % 19-41 [facility] BUN/creatinine ratioOrdered By: Angel Angel on 04-16-2025 Urea nitrogen/Creatinine [Mass ratio] 25.5 mg/mg High 10- [facility] Basic Metabolic Profile (BMP )on 04-16-2025 BUN/CRE 25.5 RATIO High - [facility] Comment on above: Performed By: #### L 500.2500, L501.4021, L100.0100 ####[facility] [address] [place], [address] Calcium [Mass/Vol] 10.0 mg/dL Normal 7.6-11.0 [facility] Comment on above: Performed By: #### L 500.2500, L501.4021, L100.0100 ####[facility] [address] [place], [address] Chloride [Moles/Vol] 98 mmol/L Normal 98-108 [facility] Comment on above: Performed By: #### L 500.2500, L501.4021, L100.0100 ####[facility] [address] [place], [address] CO2 [Moles/Vol] 26.7 mmol/L Normal 21.0-32.0 [facility] Comment on above: Performed By: #### L 500.2500, L501.4021, L100.0100 ####[facility] [address] [place], [address] Creatinine [Mass/Vol] 0.70 mg/dL Normal 0.70-1.20 [facility] Comment on above: Performed By: #### L 500.2500, L501.4021, L100.0100 ####[facility] [address] [place], [address] ECRCL 74.72 ml/min Normal 50-250 [facility] Comment on above: Performed By: #### L 500.2500, L501.4021, L100.0100 ####[facility] [address] [place], [address] GAP 12 Normal 5-15 [facility] Comment on above: Performed By: #### L 500.2500, L501.4021, L100.0100 ####[facility] [address] [place], [address] GFR/1.73 sq M.predicted among non-blacks MDRD (S/P/Bld) [Vol rate/Area] 100 mL/min/{1.73_m2} Normal >60 [facility] Comment on above: Result Comment: mL/m in/1.73m2 CKD-EPI Creatinine Equation (2020) Performed By: #### L 500.2500, L501.4021, L100.0100 ####[facility] [address] [place], [address] Glucose [Mass/Vol] 106 mg/dL High 70-99 [facility] Comment on above: Performed By: #### L 500.2500, L501.4021, L100.0100 ####[facility] [address] [place], [address] Potassium [Moles/Vol] 3.7 mmol/L Normal 3.3-5.1 [facility] Comment on above: Performed By: #### L 500.2500, L501.4021, L100.0100 ####[facility] [address] [place], [address] Sodium [Moles/Vol] 137 mmol/L Normal 133-145 [facility] Comment on above: Performed By: #### L 500.2500, L501.4021, L100.0100 ####[facility] [address] [place], [address] Urea nitrogen [Mass/Vol] 18 mg/dL Normal 4-19 [facility] Comment on above: Performed By: #### L 500.2500, L501.4021, L100.0100 ####[facility] [address] [place], [address] Basophil percentageOrdered B y: Angel Angel on 04-16-2025 Basophils/100 WBC (Bld) 0.5 % 0-1 [facility] CBC W/Diff, Automatedon 03-24 Absolute Lymph 2.47 X10 3/uL Normal 0.83-4.51 [facility] Comment on above: Performed By: #### L 500.2500, L501.4021, L100.0100 ####[facility] [address] [place], [address] Absolute Neut 4.4 X10 3/uL Normal 2.0-7.7 [facility] Comment on above: Performed By: #### L 500.2500, L501.4021, L100.0100 ####[facility] [address] [place], [address] Basophils/100 WBC (Bld) 0.5 % Normal 0-1 [facility] Comment on above: Performed By: #### L 500.2500, L501.4021, L100.0100 ####[facility] [address] [place], [address] Eosinophils/100 WBC (Bld) 4.2 % Normal 0-5 [facility] Comment on above: Performed By: #### L 500.2500, L501.4021, L100.0100 ####[facility] [address] [place], [address] Erythrocyte distribution width (RBC) [Ratio] 15.5 % High 11.6-14.6 [facility] Comment on above: Performed By: #### L 500.2500, L501.4021, L100.0100 ####[facility] [address] [place], [address] Hematocrit (Bld) [Volume fraction] 39.0 % Normal 37-47 [facility] Comment on above: Performed By: #### L 500.2500, L501.4021, L100.0100 ####[facility] [address] [place], [address] Hemoglobin (Bld) [Mass/Vol] 14.2 g/dL Normal 12.0-15.0 [facility] Comment on above: Performed By: #### L 500.2500, L501.4021, L100.0100 ####[facility] [address] [place], [address] IG% 0.300 Normal 0.0-0.9 [facility] Comment on above: Result Comment: IG% - Immature Granulocytes (promyelocytes, myelocytes and metamyelocytes) > 1% indicates that a LEFT SHIFT is Present. Performed By: #### L 500.2500, L501.4021, L100.0100 ####[facility] [address] [place], [address] Lymphocytes/100 WBC (Bld) 31.1 % Normal 19-41 [facility] Comment on above: Performed By: #### L 500.2500, L501.4021, L100.0100 ####[facility] [address] [place], [address] MCH (RBC) [Entitic mass] 28.6 pg Normal 27.0-32.0 [facility] Comment on above: Performed By: #### L 500.2500, L501.4021, L100.0100 ####[facility] [address] [place], [address] MCHC (RBC) [Mass/Vol] 36.4 g/dL High 32-36 [facility] Comment on above: Performed By: #### L 500.2500, L501.4021, L100.0100 ####[facility] [address] [place], [address] MCV (RBC) [Entitic vol] 78.5 fL Low 81-99 [facility] Comment on above: Performed By: #### L 500.2500, L501.4021, L100.0100 ####[facility] [address] [place], [address] Monocytes/100 WBC (Bld) 8.6 % Normal 0-10 [facility] Comment on above: Performed By: #### L 500.2500, L501.4021, L100.0100 ####[facility] [address] [place], [address] Neutrophils/100 WBC (Bld) 55.3 % Normal 47-70 [facility] Comment on above: Performed By: #### L 500.2500, L501.4021, L100.0100 ####[facility] [address] [place], [address] Nucleated RBC (Bld) [#/Vol] 0 10*3/uL Normal 0-5 [facility] Comment on above: Performed By: #### L 500.2500, L501.4021, L100.0100 ####[facility] [address] [place], [address] Platelet mean volume (Bld) [Entitic vol] 11.9 fL Normal 6.2-12.0 [facility] Comment on above: Performed By: #### L 500.2500, L501.4021, L100.0100 ####[facility] [address] [place], [address] Platelets (Bld) [#/Vol] 218 10*3/uL Normal 150-450 [facility] Comment on above: Performed By: #### L 500.2500, L501.4021, L100.0100 ####[facility] [address] [place], [address] RBC (Bld) [#/Vol] 4.97 10*6/uL Normal 4.2-5.4 [facility] Comment on above: Performed By: #### L 500.2500, L501.4021, L100.0100 ####[facility] [address] [place], [address] RDW SD 43.7 fl Normal 35.1-43.9 [facility] Comment on above: Performed By: #### L 500.2500, L501.4021, L100.0100 ####[facility] [address] [place], [address] WBC (Bld) [#/Vol] 7.9 10*3/uL Normal 4.4-11.0 [facility] Comment on above: Performed By: #### L 500.2500, L501.4021, L100.0100 ####[facility] [address] [place], [address] Carbon dioxide, total [Moles /volume] in Central venous bloodOrdered By: Angel Angel on 04-16-2025 CO2 [Moles/Vol] 26.7 mmol/L 21.0-32.0 [facility] Chest 1 View (Portable)on Chest 1 View (Portable) [facility] Imaging Services [address] [place] [address] Chest 1 View (Portable) MR#: [id number] Acct: [id number] Name: ALLENFELICITY Rep #: [id number] : 1965 F 59 From: Rodney Gracia MD PCP: Dr. Naomie Martini MD Status: REG ER Study: Chest 1 View (Portable) Date of Exam: 04/16/25 Exam# [id number] Ordering Dr: Angel Angel DO PROCEDURE: CHEST 1 VIEW (PORTABLE) 04/16/2025 REASON FOR EXAM: CHEST PAIN TECHNIQUE: Frontal view of the chest. COMPARISON: CT chest 02/25/2024 FINDINGS: Lungs/Pleura: Clear. No pneumothorax or pleural effusion. Heart/Mediastinum: Normal in size. Bones/Soft tissues: No significant abnormality. RAD/Chest 1 View (Portable) IMPRESSION: No acute cardiopulmonary disease. Reading Location: [facility] CC: Dr. Naomie Martini MD; Dr. Angel Angel DO [employer] Repairer: Signed Normal [facility] Chloride assayOrdered By: Dylan Angel on 04-16-2025 Chloride [Moles/Vol] 98 mmol/L 98-108 [facility] Emergency Department Summary on 04-16-2025 Emergency Department Summary [facility] Medical Records Department [address] [place] [address] Emergency Department Summary 04/16/25 MR#: [id number] Acct: [id number] Name: FELICITY VILLA Rep #: [id number] : 1965 59 From: Angel Angel DO PCP: Dr. Naomie Martini MD Status:DEP ER Location: ED HPI History of Present Illness Chief Complaint: Chest Pain Informant: patient Onset/Context/Timing Onset: Month(s) (1) Activity at onset: sudden and rest (Sitting and driving) Timing: Intermittent and Lasts (Few hours) Quality: Positive for Pressure and Tightness Location: Substernal Worsened By: Nothing Relieved By: Antacids and NSAIDS (Aspirin) Associated Symptoms: Positive for Diaphoresis, Dyspnea and Lightheadedness; Negative for Nausea, Vomiting, Cough, Fever, Acid Reflux or Palpitations Narrative Narrative: Patient presents with chest pain that has been intermittent over the past month. Patient states it became worse today. Patient states it came on while she was driving today. Patient states it lasted a few hours. Patient states she took some baby aspirin and antacids which seemed to help somewhat. Patient states it came back a few hours later. Patient describes it as pressure and tightness. Patient states it is over the substernal area. Patient states nothing makes it worse. Patient admits to some shortness of breath and mild diaphoresis. Patient also admits to some lightheadedness and dizziness. CVD Risk Factors: Positive for Hypertension and Family History 1' Hypercholesterolemia or Smoking PE Risk Factors: Negative for Recent Travel/Surgery, Recent Immobilization, Prior DVT or PE, Cancer or OCP + Smoking + >/=35 PFSH PFSH Medical History Back pain Head ache [...] pain Right elbow pain High cholesterol Anxiety Home Medications ???Medication ???Instructions ???Recorded ???Last Taken ???Type aspirin 81 mg tablet,delayed 81 mg PO DAILY 04/03/22 08/03/24 H istory release (Erin Low Dose Aspirin) lorazepam 1 mg tablet (Ativan) 0.5 mg (1/2 x 1 mg) PO DAILY PRN 0 04/03/22 Unknown Rx PRN Anxiety #15 tabs cholecalciferol (vitamin D3) 50 25 mcg PO DAILY 01/22/23 08/03/24 History mcg (2,000 unit) capsule mecobalamin (vitamin B12) 1,000 5,000 mcg PO DAILY 03/15/23 History mcg chewable tablet ascorbic acid (vitamin C) 500 mg 500 mg PO DAILY 07/29/24 08/03/24 History tablet (C-500) calcium 600 mg capsule 600 mg PO DAILY 07/29/24 08/03/24 History azithromycin 250 mg tablet 250 mg PO .COMPLEX #12 tabs Unknown Rx hydrochlorothiazide 25 mg tablet 25 mg PO QAM #90 tabs 02/23/25 Unk nown Rx Allergy/AdvReac Type Severity Reaction Status Date / Time No Known Allergies Allergy Verified 01/04/25 08:17 Family History Mother Arthritis Myocardial infarction Heart disease Sister Breast cancer Father Diabetes Lung cancer Brother Lung cancer Surgical History H/O dilation and curettage Hx of colonoscopy Hx of wisdom tooth extraction Social History number of children: 2 sexually [...] do you feel safe at home: Yes ROS ROS ED Constitutional Constitutional ED: Denies chills or fever(s) Eyes Eyes: Denies blurry vision or change in vision ENT ENT ED: Denies rhinorrhea or sore throat Cardiovascular Cardiovascular: Reports as per HPI and chest pain; Denies palpitations Respiratory/Chest Respiratory/Chest: Reports dyspnea; Denies cough Gastrointestinal Gastrointestinal: Denies nausea or vomiting Genitourinary Genitourinary ED: Reports urinary frequency; Denies dysuria or he (more content not included)... Normal [facility] Eosinophil percentageOrdered By: Angel Angel on 04-16-2025 Eosinophils/100 WBC (Bld) 4.2 % 0-5 [facility] Erythrocyte distribution wid th ratioOrdered By: Angel Angel on 04-16-2025 Erythrocyte distribution width (RBC) [Ratio] 15.5 % High 11.6-14.6 [facility] Erythrocyte distribution wid th standard deviationOrdered By: Angel Angel on 04-16-2025 Erythrocyte distribution width (RBC) [Ratio] 43.7 fl 35.1-43.9 [facility] Glomerular filtration rate ( GFR) estimation/1.73 sq m using serum, plasma, or whole bOrdered By: Angel Angel on 04-16-2025 GFR/1.73 sq M.predicted among non-blacks MDRD (S/P/Bld) [Vol rate/Area] 100 mL/min/{1.73_m2} >60 [facility] Comment on above: mL/min/1.73m2 CKD-EP I Creatinine Equation (2020) Hematocrit Auto (Bld) [Volum e fraction]Ordered By: Angel Angel on 04-16-2025 Hematocrit (Bld) [Volume fraction] 39.0 % 37-47 [facility] Hemoglobin measurementOrdere d By: Angel Angel on 04-16-2025 Hemoglobin (Bld) [Mass/Vol] 14.2 g/dL 12.0-15.0 [facility] Immature granulocytes/100 WB C Auto (Bld)Ordered By: Angel Angel on 04-16-2025 Immature granulocytes/100 WBC (Bld) 0.300 % 0.0-0.9 [facility] Comment on above: IG% - Immature Granu locytes (promyelocytes, myelocytes and metamyelocytes) > 1% indicates that a LEFT SHIFT is Present. L501.4021on 04-16-2025 Trop T High Sen < 6 Normal <=14 [facility] Comment on above: Performed By: #### L 500.2500, L501.4021, L100.0100 ####[facility] [address] [place], [place], [id number] MCV (mean corpuscular volume ) determinationOrdered By: Angel Angel on 04-16-2025 MCV (RBC) [Entitic vol] 78.5 fL Low 81-99 [facility] Mean corpuscular hemoglobin (MCH) determinationOrdered By: Angel Angel on 04-16-2025 MCH (RBC) [Entitic mass] 28.6 pg 27.0-32.0 [facility] Mean corpuscular hemoglobin concentration (MCHC) determinationOrdered By: Angel Angel on 04-16-2025 MCHC (RBC) [Mass/Vol] 36.4 g/dL High 32-36 [facility] Mean platelet volume determi nationOrdered By: Angel Angel on 04-16-2025 Platelet mean volume (Bld) [Entitic vol] 11.9 fL 6.2-12.0 [facility] Monocyte percentageOrdered B y: Angel Angel on 04-16-2025 Monocytes/100 WBC (Bld) 8.6 % 0-10 [facility] Neutrophil percentageOrdered By: Angel Angel on 04-16-2025 Neutrophils/100 WBC (Bld) 55.3 % 47-70 [facility] Nucleated red blood cell per centageOrdered By: Angel Angel on 04-16-2025 Nucleated RBC/100 WBC (Bld) [Ratio] 0 % 0-5 [facility] Platelet countOrdered By: Dylan Angel on 04-16-2025 Platelets (Bld) [#/Vol] 218 10*3/uL 150-450 [facility] Potassium measurement (mass/ volume)Ordered By: Angel Angel on 04-16-2025 Potassium (Unsp spec) [Mass/Vol] 3.7 mmol/L 3.3-5.1 [facility] RBC Auto (Bld) [#/Vol]Ordere d By: Angel Angel on 04-16-2025 RBC (Bld) [#/Vol] 4.97 10*6/uL 4.2-5.4 [facility] Serum creatinine measurement (mass/volume)Ordered By: Angel Angel on 04-16-2025 Creatinine [Mass/Vol] 0.70 mg/dL 0.70-1.20 [facility] Serum glucose measurement (m ass/volume)Ordered By: Angel Angel on 04-16-2025 Glucose [Mass/Vol] 106 mg/dL High 70-99 [facility] Serum or plasma calcium walter urement (mass/volume)Ordered By: Angel Angel on 04-16-2025 Calcium [Mass/Vol] 10.0 mg/dL 7.6-11.0 [facility] Serum or plasma urea nitroge n measurement (mass/volume)Ordered By: Angel Angel on 04-16-2025 Urea nitrogen [Mass/Vol] 18 mg/dL 4-19 [facility] Sodium levelOrdered By: Angel Angel on 04-16-2025 Sodium [Moles/Vol] 137 mmol/L 133-145 [facility] Troponin T HS 2 HRon 025 Trop T High Sen < 6 Normal <=14 [facility] Comment on above: Performed By: #### L 499.0042 #### [facility] [address] [place], [place], [address] Troponin T.cardiac [Mass/vol ume] in Serum or Plasma by High sensitivity methodOrdered By: Angel Angel on 04-16-2025 Troponin T.cardiac High sensitivity method [Mass/Vol] < 6 ng/L <14 [facility] Troponin T.cardiac High sensitivity method [Mass/Vol] < 6 ng/L <14 [facility] White blood cell (WBC) count Ordered By: Angel Angel on 04-16-2025 WBC (Bld) [#/Vol] 7.9 10*3/uL 4.4-11.0 [facility] Urgent Care Visit Reporton 0 01-04-2025 Urgent Care Visit Report [facility] [address], [address] [place] [address] OFFICE VISIT Date of Service: 01/04/25 MR#: [id number] Acct: [id number] Name: FELICITY VILLA Rep #: [id number] : 1965 Provider: MEGHNA Whitt Age/Sex: 59/F Location: [facility] Status: Signed Intake Vital Signs 12/23/24 08:44 [...] like nasal sprays due to the congestion. [facility] Medical History Back pain Head ache Former [...] fever, chills, myalgias, fatigue, runny nose, or nausea/vomiting/diarrh ea. No complaints of chest pain/shortness of breath/dyspnea on exertion. No close contacts with similar complaints. No other associated symptoms and no other alleviating/aggravatin g factors. ROS Const Constitutional: No other (as [...] and face (more content not included)... Normal [facility] Anion gap in Serum or Plasma Ordered By: Naomie Martini on 12-30-2024 Anion gap [Moles/Vol] 10 mmol/L 02-04 [facility] BUN/creatinine ratioOrdered By: Naomie Martini on 12-30-2024 Urea nitrogen/Creatinine [Mass ratio] 21.6 mg/mg High 07-12 [facility] Bilirubin, totalOrdered By: Naomie Martini on 12-30-2024 Bilirubin [Mass/Vol] 0.53 mg/dL 0.00-1.30 [facility] Calculated very low density lipoprotein (VLDL) cholesterol measurementOrdered By: Naomie Martini on 12-30-2024 Calculated very low density lipoprotein (VLDL) cholesterol measurement 26 mg/dL - [facility] VLDL Cholesterol 26 mg/dL [facility] Carbon dioxide, total [Moles /volume] in Central venous bloodOrdered By: Naomie Martini on 12-30-2024 CO2 [Moles/Vol] 29.2 mmol/L 21.0-32.0 [facility] Chloride assayOrdered By: Dena Martini on 12-30-2024 Chloride [Moles/Vol] 99 mmol/L 98-108 [facility] Comprehensive Metabolic Prof ilon 12-30-2024 Albumin [Mass/Vol] 4.5 g/dL Normal 3.5-5.0 [facility] Comment on above: Performed By: #### L 500.4100, L500.4050 ####[facility] [address] [place], [address] Albumin/Globulin [Mass ratio] 1.7 {ratio} Normal 0.9-2.4 [facility] Comment on above: Performed By: #### L 500.4100, L500.4050 ####[facility] [address] [place], [address] ALK PHOS 72 U/L Normal 35-104 [facility] Comment on above: Performed By: #### L 500.4100, L500.4050 ####[facility] [address] [place], [address] ALT [Catalytic activity/Vol] 16 U/L Normal <=34 [facility] Comment on above: Performed By: #### L 500.4100, L500.4050 ####[facility] [address] [place], [address] AST [Catalytic activity/Vol] 17 U/L Normal <=31 [facility] Comment on above: Performed By: #### L 500.4100, L500.4050 ####[facility] [address] [place], [address] Bilirubin [Mass/Vol] 0.53 mg/dL Normal 0.00-1.30 [facility] Comment on above: Performed By: #### L 500.4100, L500.4050 ####[facility] [address] [place], [address] BUN/CRE 21.6 RATIO High 10-20 [facility] Comment on above: Performed By: #### L 500.4100, L500.4050 ####[facility] [address] [place], [address] Calcium [Mass/Vol] 10.3 mg/dL Normal 7.6-11.0 [facility] Comment on above: Performed By: #### L 500.4100, L500.4050 ####[facility] [address] [place], [address] Chloride [Moles/Vol] 99 mmol/L Normal 98-108 [facility] Comment on above: Performed By: #### L 500.4100, L500.4050 ####[facility] [address] [place], [address] CO2 [Moles/Vol] 29.2 mmol/L Normal 21.0-32.0 [facility] Comment on above: Performed By: #### L 500.4100, L500.4050 ####[facility] [address] [place], [address] Creatinine [Mass/Vol] 0.68 mg/dL Low 0.70-1.20 [facility] Comment on above: Performed By: #### L 500.4100, L500.4050 ####[facility] [address] [place], [address] GAP 10 Normal 5-15 [facility] Comment on above: Performed By: #### L 500.4100, L500.4050 ####[facility] [address] [place], [address] GFR/1.73 sq M.predicted among non-blacks MDRD (S/P/Bld) [Vol rate/Area] 100 mL/min/{1.73_m2} Normal >60 [facility] Comment on above: Result Comment: mL/m in/1.73m2 CKD-EPI Creatinine Equation (2020) Performed By: #### L 500.4100, L500.4050 ####[facility] [address] [place], [address] Globulin (S) [Mass/Vol] 2.6 g/dL Normal 2.2-4.2 [facility] Comment on above: Performed By: #### L 500.4100, L500.4050 ####[facility] [address] [place], [address] Glucose [Mass/Vol] 108 mg/dL High 70-99 [facility] Comment on above: Performed By: #### L 500.4100, L500.4050 ####[facility] [address] [place], [address] Potassium [Moles/Vol] 4.7 mmol/L Normal 3.3-5.1 [facility] Comment on above: Performed By: #### L 500.4100, L500.4050 ####[facility] [address] [place], [address] Sodium [Moles/Vol] 139 mmol/L Normal 133-145 [facility] Comment on above: Performed By: #### L 500.4100, L500.4050 ####[facility] [address] [place], [address] T PROT 7.1 g/dL Normal 5.9-8.4 [facility] Comment on above: Performed By: #### L 500.4100, L500.4050 ####[facility] [address] [place], [address] Urea nitrogen [Mass/Vol] 15 mg/dL Normal 4-19 [facility] Comment on above: Performed By: #### L 500.4100, L500.4050 ####[facility] [address] [place], [address] GFR/1.73 sq M.predicted sahil g non-blacks MDRD (S/P/Bld) [Vol rate/Area]Ordered By: Naomie Martini on 12-30-2024 Estimated GFR (MDRD) Non-Af Amer 100 >60 [facility] Comment on above: mL/min/1.73m2 CKD-EP I Creatinine Equation (2020) Glomerular filtration rate ( GFR) estimation/1.73 sq m using serum, plasma, or whole bOrdered By: Naomie Martini on 12-30-2024 GFR/1.73 sq M.predicted among non-blacks MDRD (S/P/Bld) [Vol rate/Area] 100 mL/min/{1.73_m2} >60 [facility] Comment on above: mL/min/1.73m2 CKD-EP I Creatinine Equation (2020) LDL calc ser/plasOrdered By: Naomie Martini on 12-30-2024 Cholesterol in LDL [Mass/Vol] 159 mg/dL [facility] Comment on above: Sqjgznqisg=774-297 m g/dL & Higher Jbly=775 mg/dL or greater LDL Cholesterol, Calculated 159 mg/dL [facility] Comment on above: Kmzmvkhmnd=960-255 m g/dL & Higher Mlee=668 mg/dL or greater Laboratory - Chemistry and C hemistry - challengeOrdered By: Naomie Martini on 12-30-2024 AST [Catalytic activity/Vol] 17 U/L <32 [facility] Lipid Profileon 12-30-2024 CHOL:HDL 4.28 Normal [facility] Comment on above: Performed By: #### L 500.4100, L500.4050 ####[facility] [address] [place], [address] Cholesterol [Mass/Vol] 242 mg/dL High <=200 [facility] Comment on above: Result Comment: Chol esterol level, Desirable <200 mg/dL Borderline high cholesterol 200-239 mg/dL High cholesterol >=240 mg/dL Recommendations of the NCEP Adult Treatment Panel for the following risk-cutoff thresholds for the [place] population. Performed By: #### L 500.4100, L500.4050 ####[facility] [address] [place], [address] Cholesterol in HDL [Mass/Vol] 57 mg/dL Normal [facility] Comment on above: Result Comment: Sita onal Cholesterol Education Program (NCEP) guidelines: <40 mg/dL: Low HDL-cholesterol (major risk factor for CHD) >= 60 mg/dL: High HDL-cholesterol (negative risk factor for CHD) HDL-cholesterol is affected by a number of factors, e.g. smoking, exercise, hormones, sex and age. Performed By: #### L 500.4100, L500.4050 ####[facility] [address] [place], [address] Cholesterol in LDL [Mass/Vol] 159 mg/dL Normal [facility] Comment on above: Result Comment: Bord bodfkt=624-495 mg/dL Higher Lnhd=790 mg/dL or greater Performed By: #### L 500.4100, L500.4050 ####[facility] [address] [place], [address] Cholesterol in VLDL [Mass/Vol] 26 mg/dL Normal 5-40 [facility] Comment on above: Performed By: #### L 500.4100, L500.4050 ####[facility] [address] [place], [address] Triglyceride [Mass/Vol] 132 mg/dL Normal [facility] Comment on above: Result Comment: The drugs N-Acetylcysteine and Metamizole may falsely depress this assay. Normal range: <150 mg/dL Borderline High: 150-199 mg/dL High: 200-499 mg/dL Very High: >500 mg/dL Performed By: #### L 500.7110, L500.4050 ####[facility] [address] [place], [address] Potassium (Unsp spec) [Mass/ Vol]Ordered By: Naomie Martini on 12-30-2024 Potassium [Moles/Vol] 4.7 mmol/L 3.3-5.1 [facility] Potassium measurement (mass/ volume)Ordered By: Naomie Martini on 12-30-2024 Potassium (Unsp spec) [Mass/Vol] 4.7 mmol/L 3.3-5.1 [facility] Screening total cholesterol/ high density lipoprotein (HDL) cholesterol ratioOrdered By: Naomie Martini on 12-30-2024 Cholesterol.total/Chol esterol in HDL [Mass ratio] 4.28 {ratio} [facility] Serum creatinine measurement (mass/volume)Ordered By: Naomie Martini on 12-30-2024 Creatinine [Mass/Vol] 0.68 mg/dL Low 0.70-1.20 [facility] Serum globulin measurementOr dered By: Naomie Martini on 12-30-2024 Globulin (S) [Mass/Vol] 2.6 g/dL 2.2-4.2 [facility] Serum glucose measurement (m ass/volume)Ordered By: Naomie Martini on 12-30-2024 Glucose [Mass/Vol] 108 mg/dL High 70-99 [facility] Serum or plasma alanine siu otransferase (ALT) measurementOrdered By: Naomie Martini on 12-30-2024 ALT [Catalytic activity/Vol] 16 U/L <35 [facility] Serum or plasma albumin walter urement (mass/volume)Ordered By: Naomie Martini on 12-30-2024 Albumin [Mass/Vol] 4.5 g/dL 3.5-5.0 [facility] Serum or plasma albumin/glob ulin mass ratioOrdered By: Naomie Martini on 12-30-2024 Albumin/Globulin [Mass ratio] 1.7 {ratio} 0.9-2.4 [facility] Serum or plasma alkaline belén sphatase measurementOrdered By: Naomie Martini on 12-30-2024 ALP [Catalytic activity/Vol] 72 U/L 35-104 [facility] Serum or plasma calcium walter urement (mass/volume)Ordered By: Naomie Martini on 12-30-2024 Calcium [Mass/Vol] 10.3 mg/dL 7.6-11.0 [facility] Serum or plasma cholesterol in HDL measurement (mass/volume)Ordered By: Naomie Martini on 12-30-2024 Cholesterol in HDL [Mass/Vol] 57 mg/dL >40 [facility] Comment on above: National Cholesterol Education Program (NCEP) guidelines:<40 mg/dL: Low HDL-cholesterol (major risk factor for CHD)>= 60 mg/dL: High HDL-cholesterol (negative risk factor for CHD)HDL-cholesterol is affected by a number of factors, e.g. smoking, exercise, hormones, sex and age. Serum or plasma cholesterol measurement (mass/volume)Ordered By: Naomie Martini on 12-30-2024 Cholesterol [Mass/Vol] 242 mg/dL High <201 [facility] Comment on above: Cholesterol level, D esirable <200 mg/dLBorderline high cholesterol 200-239 mg/dLHigh cholesterol >=240 mg/dLRecommendations of the NCEP Adult Treatment Panel for the following risk-cutoff thresholds for the [place] population. Serum or plasma urea nitroge n measurement (mass/volume)Ordered By: Naomie Martini on 12-30-2024 Urea nitrogen [Mass/Vol] 15 mg/dL 4-19 [facility] Sodium levelOrdered By: Imani Martini on 12-30-2024 Sodium [Moles/Vol] 139 mmol/L 133-145 [facility] Total proteinOrdered By: Sunil Martini on 12-30-2024 Protein [Mass/Vol] 7.1 g/dL 5.9-8.4 [facility] Triglycerides measurementOrd ered By: Naomie Martini on 12-30-2024 Triglyceride [Mass/Vol] 132 mg/dL <199 [facility] Comment on above: The drugs N-Acetylcy steine and Metamizole may falsely depress this assay. Normal range: <150 mg/dLBorderline High: 150-199 mg/dLHigh: 200-499 mg/dLVery High: >500 mg/dL Internal Medicine Office Vis itowicho 12-23-2024 Internal Medicine Office Visit [facility] [address] [place] [address] [place] [address] OFFICE VISIT Date of Service: 12/23/24 MR#: [id number] Acct: [id number] Name: FELICITY VILLA Rep #: [id number] : 1965 Provider: Dr. Naomie west MD Age/Sex: 59/F Location: [facility] Status: Signed Intake Vital Signs 09/02/24 10:04 [...] further concerns with bleeding. Follows up with [employer] closely. She has also reported vaginal dryness, [...] lightheadedness, orthopne (more content not included)... Normal [facility] Urgent Care Visit Reporton 1 11-03-2023 Urgent Care Visit Report [facility] [address], [address] [place] [address] OFFICE VISIT Date of Service: 09/02/24 MR#: [id number] Acct: [id number] Name: FELICITY VILLA Rep #: [id number] : 1965 Provider: MEGHNA Whitt Age/Sex: 59/F Location: [facility] Status: Signed Intake Vital Signs 08/18/24 09:14 [...] FOR PINK EYE Chief Complaint: PINK EYE Thumb Sewer Required: No Accompanied by: Self Is patient [...] pain. No complaints of fever, chills, sweats, lightheadedness/dizzin ess, nausea/vomiting. No lnsw-qaz-lwbrbni ophthalmic drops tried to assist. No other associated symptoms and no other alleviating/aggravatin g factors. ROS Const Constitutional: No other (As [...] grossly normal (more content not included)... 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 Elise ray MD Age/Sex: 59/F Location: [facility] Status: Signed Intake Vital Signs 08/10/24 09:00 [...] Intake Visit Reasons: 2 wk D C Thumb Sewer Required: No Is patient in pain?: Yes [...] Postmenopausal bleeding: Status: Acute Plan fu annually 08/18/24 0938 Date Elise Fuentes Signature: Date (if applicable) CC: Normal [facility] Basic Metabolic Profile (BMP )on 08-10-2024 BUN/CRE 23.7 RATIO High 10-20 [facility] Comment on above: Performed By: #### L 500.9557 #### [facility] [address] [place], [address] CA,Total 9.3 mg/dL Normal 8.5-10.1 [facility] Comment on above: Performed By: #### L 500.2500 #### [facility] [address] [place], [address] Chloride [Moles/Vol] 102 mmol/L Normal 98-107 [facility] Comment on above: Performed By: #### L 500.2500 #### [facility] [address] [place], [address] CO2 [Moles/Vol] 31.0 mmol/L Normal 21.0-32.0 [facility] Comment on above: Performed By: #### L 500.2500 #### [facility] [address] [place], [address] Creatinine [Mass/Vol] 0.63 mg/dL Normal 0.55-1.02 [facility] Comment on above: Result Comment: The validity of the calculated GFR GFRAA in patients over 70 years has not been determined. Clinical correlation is essential. Performed By: #### L 500.2500 #### [facility] [address] [place], [address] EST GFR - AA 123 mL/min Normal >60 [facility] Comment on above: Result Comment: Afri can Hungarian GFR Calc Performed By: #### L 500.2500 #### [facility] [address] [place], [address] GAP 6 Normal 5-15 [facility] Comment on above: Performed By: #### L 500.2500 #### [facility] [address] [place], [address] GFR/1.73 sq M.predicted among non-blacks MDRD (S/P/Bld) [Vol rate/Area] 102 mL/min/{1.73_m2} Normal >60 [facility] Comment on above: Result Comment: Non- GFR Calc Performed By: #### L 500.2500 #### [facility] [address] [place], [address] Glucose [Mass/Vol] 104 mg/dL Normal 74-106 [facility] Comment on above: Result Comment: Fast ing Glucose result from 100 to 125 mg/dL suggests IMPAIRED HOMEOSTASIS per A.D.A. criteria. Performed By: #### L 500.2500 #### [facility] [address] [place], [address] Potassium [Moles/Vol] 4.4 mmol/L Normal 3.5-5.1 [facility] Comment on above: Performed By: #### L 500.2500 #### [facility] [address] [place], [address] Sodium [Moles/Vol] 138 mmol/L Normal 136-145 [facility] Comment on above: Performed By: #### L 500.2500 #### [facility] [address] [place], [address] Urea nitrogen [Mass/Vol] 15 mg/dL Normal 7-18 [facility] Comment on above: Performed By: #### L 500.2500 #### [facility] [address] [place], [address] Internal Medicine Office Vis zenon 08-10-2024 Internal Medicine Office Visit [facility] [place] [address] [place] [address] OFFICE VISIT Date of Service: 08/10/24 MR#: [id number] Acct: [id number] Name: FELICITY VILLA Rep #: [id number] : 1965 Provider: Dr. Naomie west MD Age/Sex: 59/F Location: [facility] Status: Signed Intake Vital Signs 02/06/24 14:03 [...] M FU Chief Complaint: Follow-up chronic conditions Thumb Sewer Required: No Is patient in pain?: No [...] it's okay to have a flu vaccine. 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 Bleeding [...] exertion, lighthea (more content not included)... Normal [facility] CBC-Complete Blood Cnt No Di ffon 08-04-2024 Erythrocyte distribution width (RBC) [Ratio] 14.6 % Normal 11.6-14.6 [facility] Comment on above: Performed By: #### L 100.0500, BTSPAT #### [facility] [address] [place], [address] Hematocrit (Bld) [Volume fraction] 39.5 % Normal 37-47 [facility] Comment on above: Performed By: #### L 100.0500, BTSPAT #### [facility] [address] [place], [address] Hemoglobin (Bld) [Mass/Vol] 14.5 g/dL Normal 12.0-15.0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 Lymphocytes/100 WBC (Bld) 23.8 % 19-41 [facility] Blood monocytes/100 leukocyt esOrdered By: Nithin العراقي on 04-22-2023 Monocytes/100 WBC (Bld) 8.2 % 0-10 [facility] Blood platelet mean volumeOr dered By: Nithin العراقي on 04-22-2023 Platelet mean volume (Bld) [Entitic vol] 11.7 fL 6.2-12.0 [facility] Culture, urineOrdered By: Breann العراقي on 04-22-2023 Bacteria identified Cx Nom (U) Culture exhibits no growth. [facility] Determination of erythrocyte mean corpuscular volume (MCV)Ordered By: Nithin العراقي on 04-22-2023 MCV (RBC) [Entitic vol] 81.6 fL 81-99 [facility] Hematocrit Auto (Bld) [Volum e fraction]Ordered By: Nithin العراقي on 04-22-2023 Hematocrit (Bld) [Volume fraction] 42.5 % 37-47 [facility] Laboratory - Chemistry and C hemistry - challengeOrdered By: Nithin العراقي on 04-22-2023 ALP [Catalytic activity/Vol] 78 U/L 45-117 [facility] ALT [Catalytic activity/Vol] 28 U/L 13-56 [facility] Amylase [Catalytic activity/Vol] 13 U/L 5-55 [facility] CO2 [Moles/Vol] 33.0 mmol/L 21.0-32.0 [facility] Globulin (S) [Mass/Vol] 3.5 g/dL 2.2-4.2 [facility] Lipase [Catalytic activity/Vol] 28 U/L 13-75 [facility] Comment on above: Please note:LIPASE r evised reference range effective 23. New Lipase methodology. Expected to produce lower values than the previous assay method. NEW Reference Range: 13 - 75 U/L Urea nitrogen/Creatinine [Mass ratio] 18.2 mg/mg 10-20 [facility] Laboratory - Chemistry and C hemistry - challengeon 04-22-2023 Bilirubin Ql (U) Negative [facility] Glucose Ql (U) Negative [facility] Ketones Ql (U) Negative [facility] pH (U) 6.5 [pH] [facility] Specific gravity (U) [Rel density] 1.010 [facility] Urobilinogen (U) [Mass/Vol] 0.2925928 mg/dL [facility] Laboratory - Hematology and Cell countsOrdered By: Nithin العراقي on 04-22-2023 Erythrocyte distribution width (RBC) [Entitic vol] 46.4 fL 35.1-43.9 [facility] Erythrocyte distribution width (RBC) [Ratio] 15.6 % 11.6-14.6 [facility] Immature granulocytes/100 WBC (Bld) 0.400 % 0.0-0.9 [facility] Comment on above: IG% - Immature Granu locytes (promyelocytes, myelocytes and metamyelocytes) > 1% indicates that a LEFT SHIFT is Present. MCH (RBC) [Entitic mass] 29.2 pg 27.0-32.0 [facility] Nucleated RBC/100 WBC (Bld) [Ratio] 0 % 0-5 [facility] Laboratory - Hematology and Cell countson 04-22-2023 Hemoglobin Ql (U) Negative [facility] Laboratory - Specimen inform ationon 04-22-2023 Clarity (U) Cloudy [facility] Color (U) YELLOW [facility] Laboratory - Urinalysison Nitrite Ql (U) Negative [facility] Protein Ql (U) Trace [facility] MCHC Auto (RBC) [Mass/Vol]Or dered By: Nithin العراقي on 04-22-2023 MCHC (RBC) [Mass/Vol] 35.8 g/dL 32-36 [facility] No Panel InformationOrdered By: Nithin العراقي on 04-22-2023 Estimated GFR (MDRD) Amer 108 mL/min >60 [facility] Comment on above: GFR Calc Estimated GFR (MDRD) Non-Af Amer 89 mL/min >60 [facility] Comment on above: Non- GFR Calc No Panel Informationon 04-22 Urine Leukocytes Negatve [facility] Platelets bldOrdered By: Oswaldo العراقي on 04-22-2023 Platelets (Bld) [#/Vol] 208 10*3/uL 150-450 [facility] Serum or plasma albumin walter urement (mass/volume)Ordered By: Nithin العراقي on 04-22-2023 Albumin [Mass/Vol] 3.9 g/dL 3.2-5.0 [facility] Serum or plasma albumin/glob ulin mass ratioOrdered By: Nithin العراقي on 04-22-2023 Albumin/Globulin [Mass ratio] 1.1 {ratio} 0.9-2.4 [facility] Serum or plasma calcium walter urement (mass/volume)Ordered By: Nithin العراقي on 04-22-2023 Calcium [Mass/Vol] 9.3 mg/dL 8.5-10.1 [facility] Serum or plasma creatinine m easurement (mass/volume)Ordered By: Nithin العراقي on 04-22-2023 Creatinine [Mass/Vol] 0.72 mg/dL 0.55-1.02 [facility] Comment on above: The validity of the calculated GFR & GFRAA in patients over 70 years has not been determined. Clinical correlation is essential. Serum or plasma urea nitroge n measurement (mass/volume)Ordered By: Nithin العراقي on 04-22-2023 Urea nitrogen [Mass/Vol] 13 mg/dL 7-18 [facility] Thin prep Papanicolaou smear with manual screeningOrdered By: Nithin العراقي on 04-22-2023 Thin prep Papanicolaou smear with manual screening 11 U/L 15-37 [facility] Thin prep Papanicolaou smear with manual screening 2 5-15 [facility] Basophil percentageOrdered B y: Dr. Martini on 03-15-2023 Bilirubin [Mass/Vol] 0.60 mg/dL 0.20-1.00 [facility] Comment on above: For patients on eltr ombopag therapy, use of Dimension Points TBIL is not recommended. Chloride [Moles/Vol] 102 mmol/L 98-107 [facility] Cholesterol [Mass/Vol] 225 mg/dL <200 [facility] Comment on above: <200 mg/dL Desirable 200-240 mg/dL Borderline >240 mg/dL High Risk Glucose [Mass/Vol] 108 mg/dL 74-106 [facility] Comment on above: Fasting Glucose resu lt from 100 to 125 mg/dL suggests IMPAIRED HOMEOSTASIS per A.D.A. criteria. Potassium [Moles/Vol] 4.6 mmol/L 3.5-5.1 [facility] Protein [Mass/Vol] 7.1 g/dL 6.4-8.2 [facility] Sodium [Moles/Vol] 138 mmol/L 136-145 [facility] Triglyceride [Mass/Vol] 167 mg/dL <199 [facility] Comment on above: The drugs N-Acetylcy steine and Metamizole may falsely depress this assay.Serum Triglycerides Reference Interval Normal <150 mg/dL Borderline high 150 - 199 mg/dL High 200 - 499 mg/dL Very High > or = 500 mg/dL Laboratory - Chemistry and C hemistry - challengeOrdered By: Dr. Martini on 03-15-2023 ALP [Catalytic activity/Vol] 74 U/L 45-117 [facility] ALT [Catalytic activity/Vol] 23 U/L 13-56 [facility] CO2 [Moles/Vol] 33.0 mmol/L 21.0-32.0 [facility] Globulin (S) [Mass/Vol] 3.1 g/dL 2.2-4.2 [facility] Urea nitrogen/Creatinine [Mass ratio] 20.7 mg/mg 10-20 [facility] No Panel InformationOrdered By: Dr. Martini on 03-15-2023 Estimated GFR (MDRD) Amer 137 mL/min >60 [facility] Comment on above: GFR Calc Estimated GFR (MDRD) Non-Af Amer 113 mL/min >60 [facility] Comment on above: Non- GFR Calc Serum or plasma albumin walter urement (mass/volume)Ordered By: Dr. Martini on 03-15-2023 Albumin [Mass/Vol] 4.0 g/dL 3.2-5.0 [facility] Serum or plasma albumin/glob ulin mass ratioOrdered By: Dr. Martini on 03-15-2023 Albumin/Globulin [Mass ratio] 1.3 {ratio} 0.9-2.4 [facility] Serum or plasma calcium walter urement (mass/volume)Ordered By: Dr. Martini on 03-15-2023 Calcium [Mass/Vol] 9.6 mg/dL 8.5-10.1 [facility] Serum or plasma cholesterol in HDL measurement (mass/volume)Ordered By: Dr. Martini on 03-15-2023 Cholesterol in HDL [Mass/Vol] 59 mg/dL >40 [facility] Comment on above: The drugs N-Acetylcy steine and Metamizole may falsely depress this assay. Reference Range HDL <40 mg/dL Low HDL Cholesterol HDL >or= 60 mg/dL High HDL Cholesterol Serum or plasma cholesterol in VLDL measurement (mass/volume)Ordered By: Dr. Martini on 03-15-2023 Cholesterol in VLDL [Mass/Vol] 33 mg/dL 5-40 [facility] Serum or plasma creatinine m easurement (mass/volume)Ordered By: Dr. Martini on 03-15-2023 Creatinine [Mass/Vol] 0.58 mg/dL 0.55-1.02 [facility] Comment on above: The validity of the calculated GFR & GFRAA in patients over 70 years has not been determined. Clinical correlation is essential. Serum or plasma low density lipoprotein (LDL) cholesterol measurement (mass/volume)Ordered By: Dr. Martini on 03-15-2023 Cholesterol in LDL [Mass/Vol] 133 mg/dL 0-130 [facility] Serum or plasma urea nitroge n measurement (mass/volume)Ordered By: Dr. Martini on 03-15-2023 Urea nitrogen [Mass/Vol] 12 mg/dL 7-18 [facility] Thin prep Papanicolaou smear with manual screeningOrdered By: Dr. Martini on 03-15-2023 Thin prep Papanicolaou smear with manual screening 14 U/L 15-37 [facility] Thin prep Papanicolaou smear with manual screening 3 5-15 [facility] Whole blood hemoglobin A1c/t otal hemoglobin ratio (mass fraction)Ordered By: Dr. Martini on 03-15-2023 HbA1c (Bld) [Mass fraction] 4.8 % 3.8-5.6 [facility] Comment on above: Normal < 5.7 % Predi abetic 5.7 - 6.4 % Diabetic >or= 6.5 % Please note range changes. Laboratory - Hematology and Cell countson 10-19-2022 HbA1c (Bld) [Mass fraction] 5.0 % 4.2-6.3 [facility] Absolute lymphocyte counton 07-10-2022 Lymphocytes Auto (Unsp spec) [#/Vol] 2.30 10*3/uL 0.83-4.51 [facility] Work Phone: Basophil percentageon 2021 Basophils/100 WBC (Bld) 0.5 % 0-1 [facility] Work Phone: Bilirubin [Mass/Vol] 0.60 mg/dL 0.20-1.00 [facility] Work Phone: Comment on above: For patients on eltr ombopag therapy, use of Dimension Points TBIL is not recommended. Chloride [Moles/Vol] 102 mmol/L 98-107 [facility] Work Phone: Cholesterol [Mass/Vol] 201 mg/dL <200 [facility] Work Phone: Comment on above: <200 mg/dL Desirable 200-240 mg/dL Borderline >240 mg/dL High Risk Eosinophils/100 WBC (Bld) 5.2 % 0-5 [facility] Work Phone: Glucose [Mass/Vol] 108 mg/dL 74-106 [facility] Work Phone: Comment on above: Fasting Glucose resu lt from 100 to 125 mg/dL suggests IMPAIRED HOMEOSTASIS per A.D.A. criteria. Neutrophils (Bld) [#/Vol] 4.3 10*3/uL 2.0-7.7 [facility] Work Phone: Neutrophils/100 WBC (Bld) 54.9 % 47-70 [facility] Work Phone: Potassium [Moles/Vol] 4.8 mmol/L 3.5-5.1 [facility] Work Phone: Protein [Mass/Vol] 6.7 g/dL 6.4-8.2 [facility] Work Phone: Sodium [Moles/Vol] 138 mmol/L 136-145 [facility] Work Phone: Triglyceride [Mass/Vol] 208 mg/dL <199 [facility] Work Phone: Comment on above: The drugs N-Acetylcy steine and Metamizole may falsely depress this assay.Serum Triglycerides Reference Interval Normal <150 mg/dL Borderline high 150 - 199 mg/dL High 200 - 499 mg/dL Very High > or = 500 mg/dL WBC (Bld) [#/Vol] 7.7 10*3/uL 4.4-11.0 [facility] Work Phone: Blood erythrocytes count (nu mber/volume)on 07-10-2022 RBC (Bld) [#/Vol] 5.00 10*6/uL 4.2-5.4 [facility] Work Phone: Blood hemoglobin measurement (mass/volume)on 07-10-2022 Hemoglobin (Bld) [Mass/Vol] 14.5 g/dL 12.0-15.0 [facility] Work Phone: Blood lymphocytes/100 leukoc yteson 07-10-2022 Lymphocytes/100 WBC (Bld) 29.7 % 19-41 [facility] Work Phone: Blood monocytes/100 leukocyt eson 07-10-2022 Monocytes/100 WBC (Bld) 9.3 % 0-10 [facility] Work Phone: Blood platelet mean volumeon 07-10-2022 Platelet mean volume (Bld) [Entitic vol] 12.7 fL 6.2-12.0 [facility] Work Phone: Determination of erythrocyte mean corpuscular volume (MCV)on 07-10-2022 MCV (RBC) [Entitic vol] 81.8 fL 81-99 [facility] Work Phone: Hematocrit Auto (Bld) [Volum e fraction]on 07-10-2022 Hematocrit (Bld) [Volume fraction] 40.9 % 37-47 [facility] Work Phone: Laboratory - Chemistry and C hemistry - challengeon 07-10-2022 ALP [Catalytic activity/Vol] 72 U/L 45-117 [facility] Work Phone: ALT [Catalytic activity/Vol] 26 U/L 13-56 [facility] Work Phone: CO2 [Moles/Vol] 31.0 mmol/L 21.0-32.0 [facility] Work Phone: Globulin (S) [Mass/Vol] 2.9 g/dL 2.2-4.2 [facility] Work Phone: Urea nitrogen/Creatinine [Mass ratio] 19.1 mg/mg 10-20 [facility] Work Phone: Laboratory - Hematology and Cell countson 07-10-2022 Erythrocyte distribution width (RBC) [Entitic vol] 44.6 fL 35.1-43.9 [facility] Work Phone: Erythrocyte distribution width (RBC) [Ratio] 15.0 % 11.6-14.6 [facility] Work Phone: Immature granulocytes/100 WBC (Bld) 0.400 % 0.0-0.9 [facility] Work Phone: Comment on above: IG% - Immature Granu locytes (promyelocytes, myelocytes and metamyelocytes) > 1% indicates that a LEFT SHIFT is Present. MCH (RBC) [Entitic mass] 29.0 pg 27.0-32.0 [facility] Work Phone: Nucleated RBC/100 WBC (Bld) [Ratio] 0 % 0-5 [facility] Work Phone: MCHC Auto (RBC) [Mass/Vol]on 07-10-2022 MCHC (RBC) [Mass/Vol] 35.5 g/dL 32-36 [facility] Work Phone: No Panel Informationon 07-10 Estimated GFR (MDRD) Amer 105 mL/min >60 [facility] Work Phone: Comment on above: GFR Calc Estimated GFR (MDRD) Non-Af Amer 87 mL/min >60 [facility] Work Phone: Comment on above: Non- GFR Calc Platelets bldon 07-10-2022 Platelets (Bld) [#/Vol] 192 10*3/uL 150-450 [facility] Work Phone: Serum or plasma albumin walter urement (mass/volume)on 07-10-2022 Albumin [Mass/Vol] 3.8 g/dL 3.2-5.0 [facility] Work Phone: Serum or plasma albumin/glob ulin mass ratioon 07-10-2022 Albumin/Globulin [Mass ratio] 1.3 {ratio} 0.9-2.4 [facility] Work Phone: Serum or plasma calcium walter urement (mass/volume)on 07-10-2022 Calcium [Mass/Vol] 9.5 mg/dL 8.5-10.1 [facility] Work Phone: Serum or plasma cholesterol in HDL measurement (mass/volume)on 07-10-2022 Cholesterol in HDL [Mass/Vol] 54 mg/dL >40 [facility] Work Phone: Comment on above: The drugs N-Acetylcy steine and Metamizole may falsely depress this assay. Reference Range HDL <40 mg/dL Low HDL Cholesterol HDL >or= 60 mg/dL High HDL Cholesterol Serum or plasma cholesterol in VLDL measurement (mass/volume)on 07-10-2022 Cholesterol in VLDL [Mass/Vol] 42 mg/dL 5-40 [facility] Work Phone: Serum or plasma creatinine m easurement (mass/volume)on 07-10-2022 Creatinine [Mass/Vol] 0.73 mg/dL 0.55-1.02 [facility] Work Phone: Comment on above: The validity of the calculated GFR & GFRAA in patients over 70 years has not been determined. Clinical correlation is essential. Serum or plasma low density lipoprotein (LDL) cholesterol measurement (mass/volume)on 07-10-2022 Cholesterol in LDL [Mass/Vol] 105 mg/dL 0-130 [facility] Work Phone: Serum or plasma urea nitroge n measurement (mass/volume)on 07-10-2022 Urea nitrogen [Mass/Vol] 14 mg/dL -18 [facility] Work Phone: Thin prep Papanicolaou smear with manual screeningon 07-10-2022 Thin prep Papanicolaou smear with manual screening 14 U/L 15-37 [facility] Work Phone: Thin prep Papanicolaou smear with manual screening 5 5-15 [facility] Work Phone: Basophil percentageon 2021 Chloride [Moles/Vol] 100 mmol/L 98-107 [facility] Work Phone: Glucose [Mass/Vol] 98 mg/dL 74-106 [facility] Work Phone: Potassium [Moles/Vol] 4.4 mmol/L 3.5-5.1 [facility] Work Phone: Sodium [Moles/Vol] 136 mmol/L 136-145 [facility] Work Phone: Laboratory - Chemistry and C hemistry - challengeon 10-25-2021 CO2 [Moles/Vol] 32.0 mmol/L 21.0-32.0 [facility] Work Phone: Urea nitrogen/Creatinine [Mass ratio] 20.2 mg/mg 10-20 [facility] Work Phone: No Panel Informationon 10-25 Estimated GFR (MDRD) Amer 112 mL/min >60 [facility] Work Phone: Comment on above: GFR Calc Estimated GFR (MDRD) Non-Af Amer 93 mL/min >60 [facility] Work Phone: Comment on above: Non- GFR Calc Serum or plasma calcium walter urement (mass/volume)on 10-25-2021 Calcium [Mass/Vol] 9.5 mg/dL 8.5-10.1 [facility] Work Phone: Serum or plasma creatinine m easurement (mass/volume)on 10-25-2021 Creatinine [Mass/Vol] 0.69 mg/dL 0.55-1.02 [facility] Work Phone: Comment on above: The validity of the calculated GFR & GFRAA in patients over 70 years has not been determined. Clinical correlation is essential. Serum or plasma urea nitroge n measurement (mass/volume)on 10-25-2021 Urea nitrogen [Mass/Vol] 14 mg/dL 7-18 [facility] Work Phone: Thin prep Papanicolaou smear with manual screeningon 10-25-2021 Thin prep Papanicolaou smear with manual screening 4 5-15 [facility] Work Phone: URINE JOVANNY [place]ULTURE[place]IDENTIF[place] ([id number])Ordered By: Hotel Manager on 06-17-2017 Bacteria identified Cx Nom (U) Escherichia coli Abnormal [facility] Work Phone: Comment on above: 50,000-100,000 colon y forming units per mL PATIENT NOT FASTINGP ERFORMED BY: JACKY [facility] [id number] [facility] [id number] Information: SRC:UC Bacteria identified Cx Nom (U) Final report Abnormal [facility] Work Phone: Comment on above: PATIENT NOT FASTINGP ERFORMED BY: JACKY [facility] Xvihcn7925 [address] VisibleBrandsAt[facility] [id number] Information: SRC:UC Other Antibiotic [Susc] MIHEAD Normal [...] STrimethoprim/Sulfa S PATIENT NOT FASTINGP ERFORMED BY: JACKY AMRAS [employer] Rbtims7815 Broderick RoadFormerly [facility] [id number] Information: SRC: HPV automatic ([id number])Ordered By: Hotel Manager on 06-19-2016 HPV 16+18+31+33+35+39+45+5 1+52+56+58+59+68 DNA Probe+sig amp Ql (Cvx) Negative Normal Com[facility]hen [facility] Work Phone: Comment on above: This high-risk HPV t est detects thirteen high-risk types(16/18/31/33/35/39/45/51/52/56/58/59/68) without differentiation. . Source.............C ervix;EndocervixNo. of containers..01 CYTYC Thin Prep VialPATIENT NOT FASTINGPERFORMED BY: Jana Mobile [place] [facility] [id number] BY: =G LabNEMO Equipment[address] [place] [address] Voice2[facility] [id number] Information: [id number] Microscopic observation Other stain Nom (Unsp spec) . Normal Comprehens geena [facility] Work Phone: Comment on above: Source.............C ervix;EndocervixNo. of containers..01 CYTYC Thin Prep VialPATIENT NOT FASTINGPERFORMED BY: Jana Mobile [place] [facility] [id number] BY: =G ulike Zboswvrlnq091 [address] [facility] [id number] Information: [id number] Pathology report final diagnosis Narrative SPRCS Normal Comprehensiv e Internal Medicine Work Phone: Comment on above: NEGATIVE FOR INTRAEP ITHELIAL LESION AND MALIGNANCY.THIS SPECIMEN WAS RESCREENED PART OF OUR LAWN SPECIALIST PROGRAM.Satisfactory for evaluation. Endocervical and/or squamous metaplasticcells (endocervical component) are present.Z11.51Talib Meier, Shredder/Granulator Operator (ASCP)Hilda Bob, Supervisory Shredder/Granulator Operator (ASCP) Source.............C ervix;EndocervixNo. of containers..01 CYTYC Thin Prep VialPATIENT NOT FASTINGPERFORMED BY: [employer]120 [address] [facility] [id number] BY: =G Human Demand[address] [facility] [id number] Information: [id number] HPV automatic ([id number]) PAPSMR Normal [facility] prehensive Internal Medicine Work Phone: Comment on [...] CYTYC Thin Prep VialPATIENT NOT FASTINGPERFORMED BY: [employer]120 [address] AlfredSetPoint MedicalAl[facility] [id number] BY: =G Human Demandton120 [address] TkrcuateAlta View Hospital [id number] Information: [id number] Urinalysis, Office ([id number])Or dered By: Lyn Conroy on 07-18-2015 Bilirubin [...] [facility] Work Phone: HPV automatic ([id number])Ordered By: Hotel Manager on 06-17-2015 HPV 16+18+31+33+35+39+45+5 1+52+56+58+59+68 DNA Probe+sig amp Ql (Cvx) Negative Normal Comprehen sive Internal Medicine Work Phone: Comment on above: This high-risk HPV t est detects thirteen high-risk types(16/18/31/33/35/39/45/51/52/56/58/59/68) without differentiation. . Source.............C ervical;EndocervicalNo. of containers..01 CYTYC Thin Prep VialPATIENT NOT FASTINGPERFORMED BY: WB LabHaolianluoJdtalkmwlz[address] [id number] BY: =G Human Demand[address] [id number] Information: [id number] Microscopic observation Other stain Nom (Unsp spec) . Normal Comprehens geena [facility] Work Phone: Comment on above: Source.............C ervical;EndocervicalNo. of containers..01 CYTYC Thin Prep VialPATIENT NOT FASTINGPERFORMED BY: WB [facility] Gsisudvkrg139 [address] [place] [id number] BY: =G [facility] Ziuiohaebe510 [address] PlazaCharleston [place] [id number] Information: [id number] Pathology report final diagnosis Narrative SPRCS Normal Comprehensiv e Internal Medicine Work Phone: Comment on above: NEGATIVE FOR INTRAEP ITHELIAL LESION AND MALIGNANCY.Satisfactory for evaluation. Endocervical and/or squamous metaplasticcells (endocervical component) are present.V73.81 ; Special screening examination, human papillomavirus [HPV]Ferny Keyes, Shredder/Granulator Operator (ASCP) Source.............C ervical;EndocervicalNo. of containers..01 CYTYC Thin Prep VialPATIENT NOT FASTINGPERFORMED BY: WB [facility] Xafblficry[address] [place] [id number] BY: =G [facility] Nobdcjubpc824 [address] [place] [id number] Information: [id number] HPV automatic ([id number]) PAPSMR Normal [facility] prehensive Internal Medicine Work Phone: Comment on [...] Prep VialPATIENT NOT FASTINGPERFORMED BY: WB [facility] Txxmwroktp029 [facility] [id number] BY: =G [facility] Bakfzwktfx984 [facility] [id number] Information: [id number] HgA1C , Office ([id number])Ordere d By: Carmen Haque on 06-14-2014 HbA1c (Bld) [Mass fraction] 5.2 % Normal 4.6 - 7.1 [facility] Work Phone: Blood Glucose , Office ([phone])on 06-05-2012 Glucose Glucometer (BldC) [Moles/Vol] 113 1 Normal [facility] Work Phone: HgA1C , Office ([phone])on HbA1c (Bld) [Mass fraction] 5.1 % Normal 4.6 - 7.1 [facility] Work Phone: URINE J[place]NY [place]URE[place] ([id number])Ordered By: Hotel Manager on 05-02-2011 Bacteria identified Cx Nom (U) Final report Normal [facility] Work Phone: Comment on above: PATIENT NOT FASTINGP ERFORMED BY: JACKY [facility] Gqwaiy6577 [facility]ick[facility] [id number] Information: [id number] Bacteria identified Cx Nom (U) Escherichia coli Normal [facility] Work Phone: Comment on above: 25,000-50,000 colony forming units per mL PATIENT NOT FASTINGP ERFORMED BY: CB [facility] Uvkvea1526 Broderick RoadDuin [place] [id number] Information: [id number] Other Antibiotic [Susc] MIHEAD Normal [facility] [...] STrimethoprim/Sulfa S PATIENT NOT FASTINGP ERFORMED BY: JACKY [facility] Qgclqp3574 Bro[address] RoadDublin [place] [id number] Information: [id number] Urinalysis, Office ([id number])on 05-02-2011 Bilirubin Ql (U) Negative Normal Comprehe [...] [facility] Work Phone: Urinalysis, Office ([id number])on 04-19-2011 Bilirubin Ql (U) Negative Normal Comprehe [...] Time Vital Sign Value Performing Clinician Facility 04-16-2025 23:00-0400 Body temperature 97.4 [degF] Dr. Naomie Martini MD Work Phone: [facility] 04-16-2025 23:00-0400 Diastolic blood pressure 63 mm[Hg] Dr. Naomie Martini MD Work Phone: [facility] 04-16-2025 23:00-0400 Heart rate 71 /min Dr. Naomie Martini MD Work Phone: [facility] 04-16-2025 23:00-0400 Respiratory rate 15 /min Dr. Naomie Martini MD Work Phone: [facility] 04-16-2025 23:00-0400 SaO2% (BldA) [Mass fraction] 94 % Dr. Naomie Martini MD Work Phone: [facility] 04-16-2025 23:00-0400 Systolic blood pressure 123 mm[Hg] Dr. Naomie Martini MD Work Phone: [facility] 04-16-2025 19:27-0400 Body height 162.[address] Naomie Martini MD Work Phone: [facility] 04-16-2025 19:27-0400 Body mass index (BMI) [Ratio] 22.9 kg/m2 Dr. Naomie Martini MD Work Phone: [facility] 04-16-2025 19:27-0400 Body weight 60.[address] Naomie Martini MD Work Phone: [facility] 01-04-2025 08:20-0400 Body temperature 98.4 [degF] Dr. Naomie Martini MD Work Phone: [facility] 01-04-2025 08:20-0400 Diastolic blood pressure 78 mm[Hg] Dr. Naomie Martini MD Work Phone: [facility] 01-04-2025 08:20-0400 Heart rate 78 /min Dr. Naomie Martini MD Work Phone: [facility] 01-04-2025 08:20-0400 SaO2% (BldA) [Mass fraction] 98 % Dr. Naomie Martini MD Work Phone: [facility] 01-04-2025 08:20-0400 Systolic blood pressure 120 mm[Hg] Dr. Naomie Martini MD Work Phone: [facility] 12-23-2024 08:44-0400 Body height 162.[address] Naomie Martini MD Work Phone: [facility] 12-23-2024 08:44-0400 Body mass index (BMI) [Ratio] 23.1 kg/m2 Dr. Naomie Martini MD Work Phone: [facility] 12-23-2024 08:44-0400 Body temperature 96.2 [degF] Dr. Naomie Martini MD Work Phone: [facility] 12-23-2024 08:44-0400 Body weight 61.[address] Naomie Martini MD Work Phone: [facility] 12-23-2024 08:44-0400 Diastolic blood pressure 60 mm[Hg] Dr. Naomie Martini MD Work Phone: [facility] 12-23-2024 08:44-0400 Heart rate 82 /min Dr. Naomie Martini MD Work Phone: [facility] 12-23-2024 08:44-0400 Respiratory rate 18 /min Dr. Naomie Martini MD Work Phone: [facility] 12-23-2024 08:44-0400 SaO2% (BldA) [Mass fraction] 98 % Dr. Naomie Martini MD Work Phone: [facility] 12-23-2024 08:44-0400 Systolic blood pressure 118 mm[Hg] Dr. Naomie Martini MD Work Phone: [facility] 03-11-2024 10:23-0400 Body height 162.6 cm Francisca Rivera MD Work Phone: [facility] 03-11-2024 10:23-0400 Body mass index (BMI) [Ratio] 22.31 kg/m2 Francisca Rivera MD Work Phone: [facility] 03-11-2024 10:23-0400 Body weight 58.97 kg Francisca Rivera MD Work Phone: [facility] 03-07-2024 09:46-0400 Body temperature 97.81 [degF] Krislyn Aberegg PA Work Phone: [facility] 03-07-2024 09:46-0400 Body weight 60.5 kg Krislyn Aberegg PA Work Phone: [facility] 03-07-2024 09:46-0400 Diastolic blood pressure 80 mm[Hg] Krislyn Aberegg PA Work Phone: [facility] 03-07-2024 09:46-0400 Heart rate 90 /min Krislyn Aberegg PA Work Phone: [facility] 03-07-2024 09:46-0400 Respiratory rate 20 /min Krislyn Aberegg PA Work Phone: [facility] 03-07-2024 09:46-0400 SaO2% (BldA) [Mass fraction] 99 % Krislyn Aberegg PA Work Phone: [facility] 03-07-2024 09:46-0400 Systolic blood pressure 132 mm[Hg] Krislyn Aberegg PA Work Phone: [facility] 02-28-2024 21:57-0400 Blood Pressure Location FÉLIX ROMAN MD [facility] 02-28-2024 21:57-0400 Blood Pressure Method FÉLIX ROMAN MD [facility] 02-28-2024 21:57-0400 Body height 162.6 cm FÉLIX ROMAN MD [facility] 02-28-2024 21:57-0400 Body temperature 97.16 [degF] FÉLIX ROMAN MD [facility] 02-28-2024 21:57-0400 Body weight 59.1 kg FÉLIX ROMAN MD [facility] 02-28-2024 21:57-0400 Diastolic Blood Pressure Non-Invasive 61 mm[Hg] FÉLIX ROMAN MD [facility] 02-28-2024 21:57-0400 Heart rate 79 /min FÉLIX ROMAN MD [facility] 02-28-2024 21:57-0400 Respiratory rate 16 /min FÉLIX ROMAN MD [facility] 02-28-2024 21:57-0400 Systolic Blood Pressure Non-Invasive 113 mm[Hg] FÉLIX ROMAN MD [facility] 04-24-2023 12:56-0400 Body height 160.[address] Naomie Martini Work Phone: [facility] 04-24-2023 12:56-0400 Body mass index (BMI) [Ratio] 23.3 kg/m2 Dr. Naomie Martini Work Phone: [facility] 04-24-2023 12:56-0400 Body temperature 98.4 [degF] Dr. Naomie Martini Work Phone: [facility] 04-24-2023 12:56-0400 Body weight 59.[address] Naomie Martini Work Phone: [facility] 04-24-2023 12:56-0400 Diastolic blood pressure 84 mm[Hg] Dr. Naomie Martini Work Phone: [facility] 04-24-2023 12:56-0400 Heart rate 82 /min Dr. Naomie Martini Work Phone: [facility] 04-24-2023 12:56-0400 Respiratory rate 16 /min Dr. Naomie Martini Work Phone: [facility] 04-24-2023 12:56-0400 SaO2% (BldA) [Mass fraction] 99 % Dr. Naomie Martini Work Phone: [facility] 04-24-2023 12:56-0400 Systolic blood pressure 110 mm[Hg] Dr. Naomie Martini Work Phone: [facility] 04-22-2023 08:08-0400 Body mass index (BMI) [Ratio] 23 kg/m2 Dr. Naomie Martini Work Phone: [facility] 04-22-2023 08:08-0400 Body temperature 98.6 [degF] Dr. Naomie Martini Work Phone: [facility] 04-22-2023 08:08-0400 Body weight 58.[address] Naomie Martini Work Phone: [facility] 04-22-2023 08:08-0400 Diastolic blood pressure 78 mm[Hg] Dr. Naomie Martini Work Phone: [facility] 04-22-2023 08:08-0400 Heart rate 87 /min Dr. Naomie Martini Work Phone: [facility] 04-22-2023 08:08-0400 Respiratory rate 16 /min Dr. Naomie Martini Work Phone: [facility] 04-22-2023 08:08-0400 SaO2% (BldA) [Mass fraction] 97 % Dr. Naomie Martini Work Phone: [facility] 04-22-2023 08:08-0400 Systolic blood pressure 118 mm[Hg] Dr. Naomie Martini Work Phone: [facility] 04-17-2023 08:15-0400 Body temperature 97.5 [degF] Dr. Naomie Martini Work Phone: [facility] 04-17-2023 08:15-0400 Diastolic blood pressure 72 mm[Hg] Dr. Naomie Martini Work Phone: [facility] 04-17-2023 08:15-0400 Heart rate 70 /min Dr. Naomie Martini Work Phone: [facility] 04-17-2023 08:15-0400 Respiratory rate 16 /min Dr. Naomie Martini Work Phone: [facility] 04-17-2023 08:15-0400 SaO2% (BldA) [Mass fraction] 97 % Dr. Naomie Martini Work Phone: [facility] 04-17-2023 08:15-0400 Systolic blood pressure 102 mm[Hg] Dr. Naomie Martini Work Phone: [facility] 04-17-2023 06:38-0400 Body mass index (BMI) [Ratio] 22.3 kg/m2 Dr. Naomie Martini Work Phone: [facility] 04-17-2023 06:38-0400 Body weight [address] Naomie Martini Work Phone: [facility] 04-04-2023 13:46-0400 Body temperature 97.9 [degF] Dr. Naomie Martini Work Phone: [facility] 04-04-2023 13:46-0400 Diastolic blood pressure 78 mm[Hg] Dr. Naomie Martini Work Phone: [facility] 04-04-2023 13:46-0400 Heart rate 66 /min Dr. Naomie Martini Work Phone: [facility] 04-04-2023 13:46-0400 Respiratory rate 17 /min Dr. Naomie Martini Work Phone: [facility] 04-04-2023 13:46-0400 SaO2% (BldA) [Mass fraction] 95 % Dr. Naomie Martini Work Phone: [facility] 04-04-2023 13:46-0400 Systolic blood pressure 115 mm[Hg] Dr. Naomie Martini Work Phone: [facility] 03-15-2023 08:25-0400 Body height 162.[address] Naomie Martini Work Phone: [facility] 03-15-2023 08:25-0400 Body mass index (BMI) [Ratio] 22.3 kg/m2 Dr. Naomie Martini Work Phone: [facility] 03-15-2023 08:25-0400 Body temperature 96.3 [degF] Dr. Naomie Martini Work Phone: [facility] 03-15-2023 08:25-0400 Body weight 59.[address] Naomie Martini Work Phone: [facility] 03-15-2023 08:25-0400 Diastolic blood pressure 76 mm[Hg] Dr. Naomie Martini Work Phone: [facility] 03-15-2023 08:25-0400 Heart rate 74 /min Dr. Naomie Martini Work Phone: [facility] 03-15-2023 08:25-0400 Respiratory rate 18 /min Dr. Naomie Martini Work Phone: [facility] 03-15-2023 08:25-0400 SaO2% (BldA) [Mass fraction] 98 % Dr. Naomie Martini Work Phone: [facility] 03-15-2023 08:25-0400 Systolic blood pressure 108 mm[Hg] Dr. Naomie Martini Work Phone: [facility] 01-22-2023 14:27-0400 Body height 162.[address] Naomie Martini Work Phone: [facility] 01-22-2023 14:27-0400 Body mass index (BMI) [Ratio] 22.8 kg/m2 Dr. Naomie Martini Work Phone: [facility] 01-22-2023 14:27-0400 Body temperature 98.8 [degF] Dr. Naomie Martini Work Phone: [facility] 01-22-2023 14:27-0400 Body weight 60.[address] Naomie Martini Work Phone: [facility] 01-22-2023 14:27-0400 Diastolic blood pressure 83 mm[Hg] Dr. Naomie Martini Work Phone: [facility] 01-22-2023 14:27-0400 Heart rate 89 /min Dr. Naomie Martini Work Phone: [facility] 01-22-2023 14:27-0400 Respiratory rate 16 /min Dr. Naomie Martini Work Phone: [facility] 01-22-2023 14:27-0400 SaO2% (BldA) [Mass fraction] 96 % Dr. Naomie Martini Work Phone: [facility] 01-22-2023 14:27-0400 Systolic blood pressure 125 mm[Hg] Dr. Naomie Martini Work Phone: [facility] 10-19-2022 08:34-0500 Body mass index (BMI) [Ratio] 22.8 kg/m2 Dr. Naomie Martini Work Phone: [facility] 10-19-2022 08:34-0500 Body temperature 97.7 [degF] Dr. Naomie Martini Work Phone: [facility] 10-19-2022 08:34-0500 Body weight 60.[address] Naomie Martini Work Phone: [facility] 10-19-2022 08:34-0500 Diastolic blood pressure 76 mm[Hg] Dr. Naomie Martini Work Phone: [facility] 10-19-2022 08:34-0500 Heart rate 84 /min Dr. Naomie Matrini Work Phone: [facility] 10-19-2022 08:34-0500 Respiratory rate 18 /min Dr. Naomie Martini Work Phone: [facility] 10-19-2022 08:34-0500 SaO2% (BldA) [Mass fraction] 97 % Dr. Naomie Martini Work Phone: [facility] 10-19-2022 08:34-0500 Systolic blood pressure 106 mm[Hg] Dr. Naomie Martini Work Phone: [facility] 07-17-2022 08:33-0400 Body height 162.[address] Naomie Martini Work Phone: [facility] Work Phone: 07-17-2022 08:33-0400 Body mass index (BMI) [Ratio] 23 kg/m2 Dr. Naomie Martini Work Phone: [facility] Work Phone: 07-17-2022 08:33-0400 Body temperature 98.3 [degF] Dr. Naomie Martini Work Phone: [facility] Work Phone: 07-17-2022 08:33-0400 Body weight 60.[address] Naomie Martini Work Phone: [facility] Work Phone: 07-17-2022 08:33-0400 Diastolic blood pressure 76 mm[Hg] Dr. Naomie Martini Work Phone: [facility] Work Phone: 07-17-2022 08:33-0400 Heart rate 72 /min Dr. Naomie Martini Work Phone: [facility] Work Phone: 07-17-2022 08:33-0400 Respiratory rate 14 /min Dr. Naomie Martini Work Phone: [facility] Work Phone: 07-17-2022 08:33-0400 SaO2% (BldA) [Mass fraction] 99 % Dr. Naomie Martini Work Phone: [facility] Work Phone: 07-17-2022 08:33-0400 Systolic blood pressure 114 mm[Hg] Dr. Naomie Maritni Work Phone: [facility] Work Phone: 04-03-2022 08:04-0400 Body height 162.[address] Naomie Martini Work Phone: [facility] Work Phone: 04-03-2022 08:04-0400 Body mass index (BMI) [Ratio] 22.4 kg/m2 Dr. Naomie Martini Work Phone: [facility] Work Phone: 04-03-2022 08:04-0400 Body temperature 97.6 [degF] Dr. Naomie Martini Work Phone: [facility] Work Phone: 04-03-2022 08:04-0400 Body weight 59.[address] Naomie Martini Work Phone: [facility] Work Phone: 04-03-2022 08:04-0400 Diastolic blood pressure 78 mm[Hg] Dr. Naomie Martini Work Phone: [facility] Work Phone: 04-03-2022 08:04-0400 Heart rate 76 /min Dr. Naomie Martini Work Phone: [facility] Work Phone: 04-03-2022 08:04-0400 Respiratory rate 14 /min Dr. Naomie Martini Work Phone: [facility] Work Phone: 04-03-2022 08:04-0400 SaO2% (BldA) [Mass fraction] 99 % Dr. Naomie Martini Work Phone: [facility] Work Phone: 04-03-2022 08:04-0400 Systolic blood pressure 126 mm[Hg] Dr. Naomie Martini Work Phone: [facility] Work Phone: 12-19-2021 14:30-0400 Body height 162.[address] Naomie Martini Work Phone: [facility] Work Phone: 12-19-2021 14:30-0400 Body mass index (BMI) [Ratio] 22 kg/m2 Dr. Naomie Martini Work Phone: [facility] Work Phone: 12-19-2021 14:30-0400 Body temperature 98 [degF] Dr. Naomie Martini Work Phone: [facility] Work Phone: 12-19-2021 14:30-0400 Body weight 58.[address] Naomie Martini Work Phone: [facility] Work Phone: 12-19-2021 14:30-0400 Diastolic blood pressure 77 mm[Hg] Dr. Naomie Martini Work Phone: [facility] Work Phone: 12-19-2021 14:30-0400 Heart rate 98 /min Dr. Naomie Martini Work Phone: [facility] Work Phone: 12-19-2021 14:30-0400 Respiratory rate 16 /min Dr. Naomie Martini Work Phone: [facility] Work Phone: 12-19-2021 14:30-0400 SaO2% (BldA) [Mass fraction] 97 % Dr. Naomie Martini Work Phone: [facility] Work Phone: 12-19-2021 14:30-0400 Systolic blood pressure 121 mm[Hg] Dr. Naomie Martini Work Phone: [facility] Work Phone: 10-25-2021 08:12-0500 Body mass index (BMI) [Ratio] 21.9 kg/m2 Dr. Naomie Martini Work Phone: [facility] Work Phone: 10-25-2021 08:12-0500 Body temperature 98.4 [degF] Dr. Naomie Martini Work Phone: [facility] Work Phone: 10-25-2021 08:12-0500 Body weight 58.[address] Naomie Martini Work Phone: [facility] Work Phone: 10-25-2021 08:12-0500 Diastolic blood pressure 88 mm[Hg] Dr. Naomie Martini Work Phone: [facility] Work Phone: 10-25-2021 08:12-0500 Heart rate 86 /min Dr. Naomie Martini Work Phone: [facility] Work Phone: 10-25-2021 08:12-0500 Respiratory rate 14 /min Dr. Naomie Martini Work Phone: [facility] Work Phone: 10-25-2021 08:12-0500 SaO2% (BldA) [Mass fraction] 99 % Dr. Naomie Martini Work Phone: [facility] Work Phone: 10-25-2021 08:12-0500 Systolic blood pressure 128 mm[Hg] Dr. Naomie Martini Work Phone: [facility] Work Phone: 10-27-2020 08:29-0500 BMI (Body [...] (Body Mass Index) 21.86 kg/m2 Noelle Bowden [facility] Work Phone: 07-29-2019 12:07-0500 Body Temperature 97.2 [degF] Noelle Bowden [facility] Internal Medicine Work Phone: Comment on above: Method: Temporal 07-29-2019 12:07-0500 Body weight 57.78 kg Noelle Bowden [facility] Work Phone: 07-29-2019 12:07-0500 BP Diastolic 68 mm[Hg] Noelle Bowden [facility] Work Phone: Comment on above: Patient Position: Sitting; Cuff Location : Left Arm; Cuff Size: Standard 07-29-2019 12:07-0500 BP Systolic 98 mm[Hg] Noelle Bowden [facility] Work Phone: Comment on above: Patient Position: Sitting; Cuff Location : Left Arm; Cuff Size: Standard 07-29-2019 12:07-0500 BSA (Body Surface Area) 1.61 m2 Noelle Bowden [facility] Work Phone: 07-29-2019 12:07-0500 Height 162.56 cm Noelle Bowden [facility] Work Phone: 07-29-2019 12:07-0500 Pulse (Heart Rate) 82 /min Noelle Bowden [facility] Work Phone: Comment on above: Pattern: Regular 07-29-2019 12:07-0500 Pulse Oximetry 98 % Noelle Bowden [facility] Work Phone: Comment on above: Room air 07-29-2019 12:07-0500 Respiratory Rate 16 /min Noelle Bowden [facility] Internal Medicine Work Phone: Comment on above: Pattern: Unlabored 06-08-2019 11:21-0400 BMI (Body Mass Index) 21.35 kg/m2 Noelle Bowden [facility] Internal Medicine Work Phone: 06-08-2019 11:21-0400 Body Temperature 98.2 [degF] Noelle Bowden [facility] Internal Medicine Work Phone: Comment on above: Method: Temporal 06-08-2019 11:21-0400 Body weight 56.42 kg Noelle Bowden [facility] Internal Medicine Work Phone: 06-08-2019 11:21-0400 BP Diastolic 72 mm[Hg] Noelle Bowden [facility] Internal Medicine Work Phone: Comment on above: Patient Position: Sitting; Cuff Location : Left Arm; Cuff Size: Standard 06-08-2019 11:21-0400 BP Systolic 124 mm[Hg] Noelle Bowden [facility] Internal Medicine Work Phone: Comment on above: Patient Position: Sitting; Cuff Location : Left Arm; Cuff Size: Standard 06-08-2019 11:21-0400 BSA (Body Surface Area) 1.6 m2 Noelle Bowden [facility] Internal Medicine Work Phone: 06-08-2019 11:21-0400 Height 162.56 cm Noelle Bowden [facility] Internal Medicine Work Phone: 06-08-2019 11:21-0400 Pulse (Heart Rate) 86 /min Noelle Bowden [facility] Internal Medicine Work Phone: Comment on above: Pattern: Regular 06-08-2019 11:21-0400 Pulse Oximetry 97 % Noelle Bowden [facility] Internal Medicine Work Phone: Comment on above: Room air 06-08-2019 11:21-0400 Respiratory Rate 16 /min Noelle Bowden [facility] Internal Medicine Work Phone: Comment on above: Pattern: Unlabored 08-12-2018 12:21-0500 BMI (Body Mass Index) 21.48 kg/m2 Noelle Bowden [facility] Internal Medicine Work Phone: 08-12-2018 12:21-0500 Body weight 56.76 kg Noelle Bowden [facility] Internal Medicine Work Phone: 08-12-2018 12:21-0500 BP Diastolic 68 mm[Hg] Noelle Bowden [facility] Internal Medicine Work Phone: Comment on above: Patient Position: Sitting; Cuff Location : Left Arm; Cuff Size: Standard 08-12-2018 12:21-0500 BP Systolic 110 mm[Hg] Noelle Bowden [facility] Internal Medicine Work Phone: Comment on above: Patient Position: Sitting; Cuff Location : Left Arm; Cuff Size: Standard 08-12-2018 12:21-0500 BSA (Body Surface Area) 1.6 m2 Noelle Bowden [facility] Internal Medicine Work Phone: 08-12-2018 12:21-0500 Height 162.56 cm Noelle Bowden [facility] Internal Medicine Work Phone: 08-12-2018 12:21-0500 Pulse (Heart Rate) 81 /min Noelle Bowden [facility] Internal Medicine Work Phone: Comment on above: Pattern: Regular 08-12-2018 12:21-0500 Pulse Oximetry 97 % Noelle Bowden [facility] Internal Medicine Work Phone: Comment on above: Room air 08-12-2018 12:21-0500 Respiratory Rate 18 /min Noelle Bowden [facility] Internal Medicine Work Phone: Comment on above: Pattern: Unlabored 06-13-2018 09:23-0400 BMI (Body Mass Index) 21.37 kg/m2 Noelle Bowden [facility] Internal Medicine Work Phone: 06-13-2018 09:23-0400 Body Temperature 98.8 [degF] Noelle Bowden [facility] Internal Medicine Work Phone: Comment on above: Method: Temporal 06-13-2018 09:23-0400 Body weight 56.47 kg Noelle Bowden [facility] Internal Medicine Work Phone: 06-13-2018 09:23-0400 BP Diastolic 82 mm[Hg] Noelle Bowden [facility] Internal Medicine Work Phone: Comment on above: Patient Position: Sitting; Cuff Location : Left Arm; Cuff Size: Standard 06-13-2018 09:23-0400 BP Systolic 134 mm[Hg] Noelle Bowden [facility] Internal Medicine Work Phone: Comment on above: Patient Position: Sitting; Cuff Location : Left Arm; Cuff Size: Standard 06-13-2018 09:23-0400 BSA (Body Surface Area) 1.6 m2 Nolele Bowden [facility] Internal Medicine Work Phone: 06-13-2018 09:23-0400 Height 162.56 cm Noelle Bowden [facility] Internal Medicine Work Phone: 06-13-2018 09:23-0400 Pulse (Heart Rate) 79 /min Noelle Bowden [facility] Internal Medicine Work Phone: Comment on above: Pattern: Regular 06-13-2018 09:23-0400 Pulse Oximetry 99 % Noelle Bowden [facility] Internal Medicine Work Phone: Comment on above: Room air 06-13-2018 09:23-0400 Respiratory Rate 16 /min Noelle Bowden [facility] Internal Medicine Work Phone: Comment on above: Pattern: Unlabored 06-05-2018 10:18-0400 BMI (Body Mass Index) 20.77 kg/m2 Noelle Bowden [facility] Internal Medicine Work Phone: 06-05-2018 10:18-0400 Body Temperature 98.5 [degF] Noelle Bowden [facility] Internal Medicine Work Phone: Comment on above: Method: Temporal 06-05-2018 10:180400 Body weight 54.89 kg Noelle Bowden [facility] Internal Medicine Work Phone: 06-05-2018 10:18-0400 BP Diastolic 78 mm[Hg] Noelle Bowden [facility] Internal Medicine Work Phone: Comment on above: Patient Position: Sitting; Cuff Location : Left Arm; Cuff Size: Standard 06-05-2018 10:18-0400 BP Systolic 116 mm[Hg] Noelle Bowden [facility] Internal Medicine Work Phone: Comment on above: Patient Position: Sitting; Cuff Location : Left Arm; Cuff Size: Standard 06-05-2018 10:18-0400 BSA (Body Surface Area) 1.58 m2 Noelle Bowden [facility] Internal Medicine Work Phone: 06-05-2018 10:18-0400 Height 162.56 cm Noelle Bowden [facility] Internal Medicine Work Phone: 06-05-2018 10:18-0400 Pulse (Heart Rate) 79 /min Noelle Bowden [facility] Internal Medicine Work Phone: Comment on above: Pattern: Regular 06-05-2018 10:18-0400 Pulse Oximetry 98 % Noelle Bowden [facility] Internal Medicine Work Phone: Comment on above: Room air 06-05-2018 10:18-0400 Respiratory Rate 16 /min Noelle Bowden [facility] Internal Medicine Work Phone: Comment on above: Pattern: Unlabored 06-17-2017 11:27-0400 BMI (Body Mass Index) 20.86 kg/m2 Noelle Bowden [facility] Internal Medicine Work Phone: 06-17-2017 11:27-0400 Body weight 55.11 kg Noelle Bowden [facility] Internal Medicine Work Phone: 06-17-2017 11:27-0400 BP Diastolic 80 mm[Hg] Noelle Bowden [facility] Internal Medicine Work Phone: Comment on above: Patient Position: Sitting; Cuff Location : Left Arm; Cuff Size: Standard 06-17-2017 11:27-0400 BP Systolic 120 mm[Hg] Noelle Bowden [facility] Internal Medicine Work Phone: Comment on above: Patient Position: Sitting; Cuff Location : Left Arm; Cuff Size: Standard 06-17-2017 11:27-0400 BSA (Body Surface Area) 1.58 m2 Noelle Bowden [facility] Internal Medicine Work Phone: 06-17-2017 11:27-0400 Height 162.56 cm Noelle Bowden [facility] Internal Medicine Work Phone: 06-17-2017 11:27-0400 Pulse (Heart Rate) 70 /min Noelle Bowden [facility] Internal Medicine Work Phone: Comment on above: Pattern: Regular 06-17-2017 11:27-0400 Pulse Oximetry 98 % Noelle Bowden [facility] Internal Medicine Work Phone: Comment on above: Room air 06-17-2017 11:27-0400 Respiratory Rate 18 /min Noelle Bowden [facility] Internal Medicine Work Phone: Comment on above: Pattern: Unlabored 01-17-2017 13:33-0400 BMI (Body Mass Index) 20.98 kg/m2 Noelle Wilkes [facility] Internal Medicine Work Phone: 01-17-2017 13:33-0400 Body weight 55.45 kg Noelle Bowden [facility] Internal Medicine Work Phone: 01-17-2017 13:33-0400 BP Diastolic 76 mm[Hg] Noelle Bowden [facility] Internal Medicine Work Phone: Comment on above: Patient Position: Sitting; Cuff Location : Left Arm; Cuff Size: Standard 01-17-2017 13:33-0400 BP Systolic 118 mm[Hg] Noelle Bowden [facility] Medicine Work Phone: Comment on above: Patient Position: Sitting; Cuff Location : Left Arm; Cuff Size: Standard 01-17-2017 13:33-0400 BSA (Body Surface Area) 1.59 m2 Noelle Bowden [facility] Internal Medicine Work Phone: 01-17-2017 13:33-0400 Height 162.56 cm Noelle Bowden [facility] Medicine Work Phone: 01-17-2017 13:33-0400 Pulse (Heart Rate) 98 /min Noelle Bowden [facility] Internal Medicine Work Phone: Comment on above: Pattern: Regular 01-17-2017 13:33-0400 Pulse Oximetry 98 % Noelle Bowden [facility] Internal Medicine Work Phone: Comment on above: Room air 01-17-2017 13:33-0400 Respiratory Rate 18 /min Noelle Bowden [facility] Internal Medicine Work Phone: Comment on above: Pattern: Unlabored 10-29-2016 09:15-0500 BMI (Body Mass Index) 21.11 kg/m2 Noelle Wilkes [facility] Internal Medicine Work Phone: 10-29-2016 09:15-0500 Body Temperature 98.4 [degF] Noelle Bowden [facility] Internal Medicine Work Phone: Comment on above: Method: Temporal 10-29-2016 09:15-0500 Body weight 55.79 kg Noelle Bowden [facility] Internal Medicine Work Phone: 10-29-2016 09:15-0500 BP Diastolic 82 mm[Hg] Noelle Bowden [facility] Internal Medicine Work Phone: Comment on above: Patient Position: Sitting; Cuff Location : Left Arm; Cuff Size: Standard 10-29-2016 09:15-0500 BP Systolic 116 mm[Hg] Noelle Bowden [facility] Internal Medicine Work Phone: Comment on above: Patient Position: Sitting; Cuff Location : Left Arm; Cuff Size: Standard 10-29-2016 09:15-0500 BSA (Body Surface Area) 1.59 m2 Noelle Bowden [facility] Internal Medicine Work Phone: 10-29-2016 09:15-0500 Height 162.56 cm Noelle Bowden [facility] Internal Medicine Work Phone: 10-29-2016 09:15-0500 Pulse (Heart Rate) 96 /min Noelle Bowden [facility] Internal Medicine Work Phone: Comment on above: Pattern: Regular 10-29-2016 09:15-0500 Pulse Oximetry 98 % Noelle Bowden [facility] Internal Medicine Work Phone: Comment on above: Room air 10-29-2016 09:15-0500 Respiratory Rate 16 /min Noelle Bowden [facility] Internal Medicine Work Phone: Comment on above: Pattern: Unlabored 06-18-2016 11:12-0400 BMI (Body Mass Index) 20.81 kg/m2 Noelle Bowden [facility] Internal Medicine Work Phone: 06-18-2016 11:12-0400 Body weight 55 kg Noelle Bowden [facility] Internal Medicine Work Phone: 06-18-2016 11:12-0400 BP Diastolic 78 mm[Hg] Noelle Bowden [facility] Internal Medicine Work Phone: Comment on above: Patient Position: Sitting; Cuff Location : Left Arm; Cuff Size: Standard 06-18-2016 11:12-0400 BP Systolic 118 mm[Hg] Noelle Bowden [facility] Internal Medicine Work Phone: Comment on above: Patient Position: Sitting; Cuff Location : Left Arm; Cuff Size: Standard 06-18-2016 11:12-0400 BSA (Body Surface Area) 1.58 m2 Noelle Bowden [facility] Internal Medicine Work Phone: 06-18-2016 11:12-0400 Height 162.56 cm Noelle Bowden [facility] Internal Medicine Work Phone: 06-18-2016 11:12-0400 Pulse (Heart Rate) 84 /min Noelle Bowden [facility] Internal Medicine Work Phone: Comment on above: Pattern: Regular 06-18-2016 11:12-0400 Pulse Oximetry 99 % Noelle Bowden [facility] Internal Medicine Work Phone: Comment on above: Room air 06-18-2016 11:12-0400 Respiratory Rate 18 /min Noelle Bowden [facility] Internal Medicine Work Phone: Comment on above: Pattern: Unlabored 02-09-2016 09:37-0400 BMI (Body Mass Index) 20.47 kg/m2 Noelle Bowden [facility] Internal Medicine Work Phone: 02-09-2016 09:37-0400 Body weight 54.09 kg Noelle Bowden [facility] Internal Medicine Work Phone: 02-09-2016 09:37-0400 BP Diastolic 80 mm[Hg] Noelle Bowden [facility] Internal Medicine Work Phone: Comment on above: Patient Position: Sitting; Cuff Location : Left Arm; Cuff Size: Standard 02-09-2016 09:37-0400 BP Systolic 120 mm[Hg] Noelle Bowden [facility] Internal Medicine Work Phone: Comment on above: Patient Position: Sitting; Cuff Location : Left Arm; Cuff Size: Standard 02-09-2016 09:37-0400 BSA (Body Surface Area) 1.57 m2 Noelle Bowden [facility] Internal Medicine Work Phone: 02-09-2016 09:37-0400 Height 162.56 cm Noelle Bowden [facility] Internal Medicine Work Phone: 02-09-2016 09:37-0400 Pulse (Heart Rate) 68 /min Noelle Bowden [facility] Internal Medicine Work Phone: Comment on above: Pattern: Regular 02-09-2016 09:37-0400 Pulse Oximetry 98 % Noelle Bowden [facility] Internal Medicine Work Phone: Comment on above: Room air 02-09-2016 09:37-0400 Respiratory Rate 18 /min Noelle Bowden [facility] Internal Medicine Work Phone: Comment on above: Pattern: Unlabored 12-28-2015 09:13-0400 BMI (Body Mass Index) 20.94 kg/m2 Noelle Bowden [facility] Internal Medicine Work Phone: 12-28-2015 09:13-0400 Body Temperature 97.4 [degF] Noelle Bowden [facility] Internal Medicine Work Phone: 12-28-2015 09:13-0400 Body weight 55.34 kg Noelle Bowden [facility] Internal Medicine Work Phone: 12-28-2015 09:13-0400 BP Diastolic 80 mm[Hg] Noelle Bowden [facility] Internal Medicine Work Phone: Comment on above: Patient Position: Sitting; Cuff Location : Left Arm; Cuff Size: Standard 12-28-2015 09:13-0400 BP Systolic 116 mm[Hg] Noelle Bowden [facility] Internal Medicine Work Phone: Comment on above: Patient Position: Sitting; Cuff Location : Left Arm; Cuff Size: Standard 12-28-2015 09:13-0400 BSA (Body Surface Area) 1.59 m2 Noelle Bowden [facility] Internal Medicine Work Phone: 12-28-2015 09:13-0400 Height 162.56 cm Noelle Bowden [facility] Internal Medicine Work Phone: 12-28-2015 09:13-0400 Pulse (Heart Rate) 82 /min Noelle Bowden [facility] Internal Medicine Work Phone: Comment on above: Pattern: Regular 12-28-2015 09:13-0400 Pulse Oximetry 99 % Noelle Bowden [facility] Internal Medicine Work Phone: Comment on above: Room air 12-28-2015 09:13-0400 Respiratory Rate 14 /min Noelle Bowden [facility] Internal Medicine Work Phone: Comment on above: Pattern: Unlabored 10-03-2015 15:49-0500 BMI (Body Mass Index) 20.94 kg/m2 Noelle Bowden [facility] Internal Medicine Work Phone: 10-03-2015 15:49-0500 Body Temperature 98.9 [degF] Noelle Bowden [facility] Internal Medicine Work Phone: Comment on above: Method: Temporal 10-03-2015 15:49-0500 Body weight 55.34 kg Noelle Bowden [facility] Internal Medicine Work Phone: 10-03-2015 15:49-0500 BP Diastolic 66 mm[Hg] Noelle Bowden [facility] Internal Medicine Work Phone: Comment on above: Patient Position: Sitting; Cuff Location : Left Arm; Cuff Size: Standard 10-03-2015 15:49-0500 BP Systolic 104 mm[Hg] Noelle Bowden [facility] Internal Medicine Work Phone: Comment on above: Patient Position: Sitting; Cuff Location : Left Arm; Cuff Size: Standard 10-03-2015 15:49-0500 BSA (Body Surface Area) 1.59 m2 Noelle Bowden [facility] Internal Medicine Work Phone: 10-03-2015 15:49-0500 Height 162.56 cm Noelle Bowden [facility] Internal Medicine Work Phone: 10-03-2015 15:49-0500 Pulse (Heart Rate) 76 /min Noelle Bowden [facility] Internal Medicine Work Phone: Comment on above: Pattern: Regular 10-03-2015 15:49-0500 Pulse Oximetry 96 % Noelle Bowden [facility] Internal Medicine Work Phone: Comment on above: Room air 10-03-2015 15:49-0500 Respiratory Rate 16 /min Noelle Bowden [facility] Internal Medicine Work Phone: Comment on above: Pattern: Unlabored 08-29-2015 10:06-0500 BMI (Body Mass Index) 20.77 kg/m2 Noelle Wilkes [facility] Internal Medicine Work Phone: 08-29-2015 10:06-0500 Body Temperature 98.9 [degF] Noelle Bowden [facility] Internal Medicine Work Phone: Comment on above: Method: Temporal 08-29-2015 10:06-0500 Body weight 54.89 kg Noelle Bowden [facility] Internal Medicine Work Phone: 08-29-2015 10:06-0500 BP Diastolic 64 mm[Hg] Noelle Bowden [facility] Internal Medicine Work Phone: Comment on above: Patient Position: Sitting; Cuff Location : Left Arm; Cuff Size: Standard 08-29-2015 10:06-0500 BP Systolic 102 mm[Hg] Noelle Bowden [facility] Internal Medicine Work Phone: Comment on above: Patient Position: Sitting; Cuff Location : Left Arm; Cuff Size: Standard 08-29-2015 10:06-0500 BSA (Body Surface Area) 1.58 m2 Noelle Bowden [facility] Internal Medicine Work Phone: 08-29-2015 10:06-0500 Height 162.56 cm Noelle Bowden [facility] Internal Medicine Work Phone: 08-29-2015 10:06-0500 Pulse (Heart Rate) 85 /min Noelle Bowden [facility] Internal Medicine Work Phone: Comment on above: Pattern: Regular 08-29-2015 10:06-0500 Pulse Oximetry 98 % Noelle Bowden [facility] Internal Medicine Work Phone: Comment on above: Room air 08-29-2015 10:06-0500 Respiratory Rate 16 /min Noelle Bowden [facility] Internal Medicine Work Phone: Comment on above: Pattern: Unlabored 07-18-2015 09:59-0400 BMI (Body Mass Index) 20.94 kg/m2 Noelle Wilkes [facility] Internal Medicine Work Phone: 07-18-2015 09:59-0400 Body Temperature 98.3 [degF] Noelle Bowden [facility] Internal Medicine Work Phone: Comment on above: Method: Temporal 07-18-2015 09:59-0400 Body weight 55.34 kg Noelle Bowden [facility] Internal Medicine Work Phone: 07-18-2015 09:59-0400 BP Diastolic 92 mm[Hg] Noelle Bowden [facility] Internal Medicine Work Phone: Comment on above: Patient Position: Sitting; Cuff Location : Left Arm; Cuff Size: Standard 07-18-2015 09:59-0400 BP Systolic 140 mm[Hg] Noelle Bowden [facility] Internal Medicine Work Phone: Comment on above: Patient Position: Sitting; Cuff Location : Left Arm; Cuff Size: Standard 07-18-2015 09:59-0400 BSA (Body Surface Area) 1.59 m2 Noelle Bowden [facility] Internal Medicine Work Phone: 07-18-2015 09:59-0400 Height 162.56 cm Noelle Bowden [facility] Internal Medicine Work Phone: 07-18-2015 09:59-0400 Pulse (Heart Rate) 92 /min Noelle Bowden [facility] Internal Medicine Work Phone: Comment on above: Pattern: Regular 07-18-2015 09:59-0400 Pulse Oximetry 98 % Noelle Bowden [facility] Internal Medicine Work Phone: Comment on above: Room air 07-18-2015 09:59-0400 Respiratory Rate 16 /min Noelle Bowden [facility] Internal Medicine Work Phone: Comment on above: Pattern: Unlabored 07-01-2015 11:13-0400 BMI (Body Mass Index) 20.8 kg/m2 Noelle Bowden [facility] Internal Medicine Work Phone: 07-01-2015 11:13-0400 Body Temperature 98.7 [degF] Noelle Bowden [facility] Internal Medicine Work Phone: Comment on above: Method: Temporal 07-01-2015 11:13-0400 Body weight 54.98 kg Noelle Bowden [facility] Internal Medicine Work Phone: 07-01-2015 11:13-0400 BP Diastolic 76 mm[Hg] Noelle Bowden [facility] Internal Medicine Work Phone: Comment on above: Patient Position: Sitting; Cuff Location : Left Arm; Cuff Size: Standard 07-01-2015 11:130400 BP Systolic 118 mm[Hg] Noelle Bowden [facility] Internal Medicine Work Phone: Comment on above: Patient Position: Sitting; Cuff Location : Left Arm; Cuff Size: Standard 07-01-2015 11:130400 BSA (Body Surface Area) 1.58 m2 Noelle Bowden [facility] Internal Medicine Work Phone: 07-01-2015 11:130400 Height 162.56 cm Noelle Bowden [facility] Internal Medicine Work Phone: 07-01-2015 11:13-0400 Pulse (Heart Rate) 71 /min Noelle Bowden [facility] Internal Medicine Work Phone: Comment on above: Pattern: Regular 07-01-2015 11:13-0400 Pulse Oximetry 98 % Noelle Bowden [facility] Internal Medicine Work Phone: Comment on above: Room air 07-01-2015 11:130400 Respiratory Rate 16 /min Noelle Bowden [facility] Internal Medicine Work Phone: Comment on above: Pattern: Unlabored 06-17-2015 09:24-0400 BMI (Body Mass Index) 20.94 kg/m2 Noelle Bowden [facility] Internal Medicine Work Phone: 06-17-2015 09:24-0400 Body Temperature 98.1 [degF] Noelle Bowden [facility] Internal Medicine Work Phone: Comment on above: Method: Temporal 06-17-2015 09:24-0400 Body weight 55.34 kg Noelle Bowden [facility] Internal Medicine Work Phone: 06-17-2015 09:24-0400 BP Diastolic 74 mm[Hg] Noelle Bowden [facility] Internal Medicine Work Phone: Comment on above: Patient Position: Sitting; Cuff Location : Left Arm; Cuff Size: Standard 06-17-2015 09:24-0400 BP Systolic 118 mm[Hg] Noelle Bowden [facility] Internal Medicine Work Phone: Comment on above: Patient Position: Sitting; Cuff Location : Left Arm; Cuff Size: Standard 06-17-2015 09:24-0400 BSA (Body Surface Area) 1.59 m2 Noelle Bowden [facility] Internal Medicine Work Phone: 06-17-2015 09:24-0400 Height 162.56 cm Noelle Bowden [facility] Internal Medicine Work Phone: 06-17-2015 09:24-0400 Pulse (Heart Rate) 64 /min Noelle Bowden [facility] Internal Medicine Work Phone: Comment on above: Pattern: Regular 06-17-2015 09:24-0400 Respiratory Rate 15 /min Noelle Bowden [facility] Internal Medicine Work Phone: Comment on above: Pattern: Unlabored 06-14-2014 13:11-0400 BMI (Body Mass Index) 21.63 kg/m2 Noelle Bowden [facility] Internal Medicine Work Phone: 06-14-2014 13:11-0400 Body Temperature 97 [degF] Noelle Bowden [facility] Internal Medicine Work Phone: Comment on above: Method: Temporal 06-14-2014 13:0400 Body weight 57.15 kg Noelle Bowden [facility] Internal Medicine Work Phone: 06-14-2014 13:11-0400 BP Diastolic 66 mm[Hg] Noelle Bowden [facility] Internal Medicine Work Phone: Comment on above: Patient Position: Sitting; Cuff Location : Left Arm; Cuff Size: Standard 06-14-2014 13:11-0400 BP Systolic 116 mm[Hg] Noelle Bowden [facility] Internal Medicine Work Phone: Comment on above: Patient Position: Sitting; Cuff Location : Left Arm; Cuff Size: Standard 06-14-2014 13:11-0400 BSA (Body Surface Area) 1.61 m2 Noelle Bowden [facility] Internal Medicine Work Phone: 06-14-2014 13:0400 Height 162.56 cm Noelle Bowden [facility] Internal Medicine Work Phone: 06-14-2014 13:110400 Pulse (Heart Rate) 94 /min Noelle Bowden [facility] Internal Medicine Work Phone: Comment on above: Pattern: Regular 06-14-2014 13:-0400 Pulse Oximetry 99 % Noelle Bowden [facility] Internal Medicine Work Phone: Comment on above: Room air 06-14-2014 13:0400 Respiratory Rate 17 /min Noelle Bowden [facility] Internal Medicine Work Phone: Comment on above: Pattern: Unlabored 12-30-2013 14:25-0400 BMI (Body Mass Index) 21.14 kg/m2 Noelle Bowden [facility] Internal Medicine Work Phone: 12-30-2013 14:25-0400 Body Temperature 97 [degF] Noelle Bowden [facility] Internal Medicine Work Phone: Comment on above: Method: Oral 12-30-2013 14:25-0400 Body weight 55.88 kg Noelle Bowden [facility] Internal Medicine Work Phone: 12-30-2013 14:25-0400 BP Diastolic 64 mm[Hg] Noelle Bowden [facility] Internal Medicine Work Phone: Comment on above: Patient Position: Sitting; Cuff Location : Left Arm; Cuff Size: Standard 12-30-2013 14:25-0400 BP Systolic 102 mm[Hg] Noelle Bowden [facility] Internal Medicine Work Phone: Comment on above: Patient Position: Sitting; Cuff Location : Left Arm; Cuff Size: Standard 12-30-2013 14:25-0400 BSA (Body Surface Area) 1.59 m2 Noelle [facility] Internal Medicine Work Phone: 12-30-2013 14:25-0400 Height 162.56 cm Noelle Bowden [facility] Internal Medicine Work Phone: 12-30-2013 14:25-0400 Pulse (Heart Rate) 68 /min Noelle Bowden [facility] Internal Medicine Work Phone: Comment on above: Pattern: Regular 12-30-2013 14:25-0400 Pulse Oximetry 97 % Noelle Bowden [facility] Internal Medicine Work Phone: Comment on above: Room air 12-30-2013 14:25-0400 Respiratory Rate 18 /min Noelle Bowden [facility] Internal Medicine Work Phone: Comment on above: Pattern: Unlabored 06-15-2013 11:23-0400 BMI (Body Mass Index) 21.2 kg/m2 Noelle Bowden [facility] Internal Medicine Work Phone: 06-15-2013 11:23-0400 Body Temperature 98.9 [degF] Noelle Bowden [facility] Internal Medicine Work Phone: Comment on above: Method: Oral 06-15-2013 11:23-0400 Body weight 56.02 kg Noelle Bowden [facility] Internal Medicine Work Phone: 06-15-2013 11:23-0400 BP Diastolic 68 mm[Hg] Noelle Bowden [facility] Internal Medicine Work Phone: Comment on above: Patient Position: Sitting; Cuff Location : Left Arm; Cuff Size: Standard 06-15-2013 11:23-0400 BP Systolic 118 mm[Hg] Noelle Bowden [facility] Internal Medicine Work Phone: Comment on above: Patient Position: Sitting; Cuff Location : Left Arm; Cuff Size: Standard 06-15-2013 11:23-0400 BSA (Body Surface Area) 1.59 m2 Noelle Bowden [facility] Internal Medicine Work Phone: 06-15-2013 11:23-0400 Height 162.56 cm Noelle Bowden [facility] Internal Medicine Work Phone: 06-15-2013 11:23-0400 Pulse (Heart Rate) 79 /min Noelle Bowden [facility] Internal Medicine Work Phone: Comment on above: Pattern: Regular 06-15-2013 11:23-0400 Pulse Oximetry 94 % Noelle Bowden [facility] Internal Medicine Work Phone: Comment on above: Room air 06-15-2013 11:23-0400 Respiratory Rate 18 /min Noelle Bowden [facility] Internal Medicine Work Phone: Comment on above: Pattern: Unlabored 08-22-2012 08:19-0500 BMI (Body Mass Index) 21.71 kg/m2 Noelle Bowden [facility] Internal Medicine Work Phone: 08-22-2012 08:19-0500 Body Temperature 98.3 [degF] Noelle Bowden [facility] Internal Medicine Work Phone: Comment on above: Method: Oral 08-22-2012 08:19-0500 Body weight 57.38 kg Noelle Bowden [facility] Internal Medicine Work Phone: 08-22-2012 08:19-0500 BP Diastolic 80 mm[Hg] Noelle Bowden [facility] Internal Medicine Work Phone: Comment on above: Patient Position: Sitting; Cuff Location : Left Arm; Cuff Size: Large 08-22-2012 08:19-0500 BP Systolic 136 mm[Hg] Noelle Bowden [facility] Internal Medicine Work Phone: Comment on above: Patient Position: Sitting; Cuff Location : Left Arm; Cuff Size: Large 08-22-2012 08:19-0500 BSA (Body Surface Area) 1.61 m2 Noelle Bowden [facility] Internal Medicine Work Phone: 08-22-2012 08:19-0500 Height 162.56 cm Noelle Bowden [facility] Internal Medicine Work Phone: 08-22-2012 08:19-0500 Pulse (Heart Rate) 64 /min Noelle Bowden [facility] Internal Medicine Work Phone: Comment on above: Pattern: Regular 08-22-2012 08:19-0500 Respiratory Rate 16 /min Noelle Bowden [facility] Internal Medicine Work Phone: Comment on above: Pattern: Unlabored 07-24-2012 08:53-0400 BMI (Body Mass Index) 21.47 kg/m2 Noelle [facility] Work Phone: 07-24-2012 08:53-0400 Body Temperature 98.1 [degF] Noelle Bowden [facility] Internal Medicine Work Phone: Comment on above: Method: Oral 07-24-2012 08:53-0400 Body weight 56.73 kg Noelle Bowden [facility] Internal Medicine Work Phone: 07-24-2012 08:53-0400 BP Diastolic 62 mm[Hg] Noelle Bowden [facility] Internal Medicine Work Phone: Comment on above: Patient Position: Sitting; Cuff Location : Left Arm; Cuff Size: Standard 07-24-2012 08:53-0400 BP Systolic 124 mm[Hg] Noelle Bowden [facility] Internal Medicine Work Phone: Comment on above: Patient Position: Sitting; Cuff Location : Left Arm; Cuff Size: Standard 07-24-2012 08:53-0400 BSA (Body Surface Area) 1.6 m2 Noelle Bowden [facility] Internal Medicine Work Phone: 07-24-2012 08:53-0400 Height 162.56 cm Noelle Bowden [facility] Internal Medicine Work Phone: 07-24-2012 08:53-0400 Pulse (Heart Rate) 60 /min Noelle Bowden [facility] Internal Medicine Work Phone: Comment on above: Pattern: Regular 07-24-2012 08:53-0400 Respiratory Rate 16 /min Noelle Bowden [facility] Internal Medicine Work Phone: Comment on above: Pattern: Unlabored 06-25-2012 12:07-0400 BMI (Body Mass Index) 20.98 kg/m2 Noelle [facility] Work Phone: 06-25-2012 12:07-0400 Body Temperature 98.1 [degF] Noelle Bowden [facility] Internal Medicine Work Phone: Comment on above: Method: Oral 06-25-2012 12:07-0400 Body weight 55.45 kg Noelle Bowden [facility] Internal Medicine Work Phone: 06-25-2012 12:07-0400 BP Diastolic 70 mm[Hg] Noelle Bowden [facility] Internal Medicine Work Phone: Comment on above: Patient Position: Sitting; Cuff Location : Left Arm; Cuff Size: Standard 06-25-2012 12:07-0400 BP Systolic 122 mm[Hg] Noelle Bowden [facility] Internal Medicine Work Phone: Comment on above: Patient Position: Sitting; Cuff Location : Left Arm; Cuff Size: Standard 06-25-2012 12:07-0400 BSA (Body Surface Area) 1.59 m2 Noelle Bowden [facility] Internal Medicine Work Phone: 06-25-2012 12:07-0400 Height 162.56 cm Noelle Bowden [facility] Internal Medicine Work Phone: 06-25-2012 12:07-0400 Pulse (Heart Rate) 64 /min Noelle Bowden [facility] Internal Medicine Work Phone: Comment on above: Pattern: Regular 06-25-2012 12:07-0400 Respiratory Rate 20 /min Noelle Bowden [facility] Internal Medicine Work Phone: Comment on above: Pattern: Unlabored 06-05-2012 09:08-0400 BMI (Body Mass Index) 20.98 kg/m2 Noelle Bowden [facility] Internal Medicine Work Phone: 06-05-2012 09:08-0400 Body Temperature 98.7 [degF] Noelle Bowden [facility] Internal Medicine Work Phone: Comment on above: Method: Oral 06-05-2012 09:08-0400 Body weight 55.45 kg Noelle Bowden [facility] Internal Medicine Work Phone: 06-05-2012 09:08-0400 BP Diastolic 70 mm[Hg] Noelle Bowden [facility] Internal Medicine Work Phone: Comment on above: Patient Position: Sitting; Cuff Location : Left Arm; Cuff Size: Large 06-05-2012 09:08-0400 BP Systolic 102 mm[Hg] Noelle Bowden [facility] Internal Medicine Work Phone: Comment on above: Patient Position: Sitting; Cuff Location : Left Arm; Cuff Size: Large 06-05-2012 09:08-0400 BSA (Body Surface Area) 1.59 m2 Noelle Bowden [facility] Internal Medicine Work Phone: 06-05-2012 09:08-0400 Height 162.56 cm Noelle Bowden [facility] Internal Medicine Work Phone: 06-05-2012 09:08-0400 Pulse (Heart Rate) 64 /min Noelle Bowden [facility] Internal Medicine Work Phone: Comment on above: Pattern: Regular 06-05-2012 09:08-0400 Respiratory Rate 18 /min Noelle Bowden [facility] Internal Medicine Work Phone: Comment on above: Pattern: Unlabored 08-07-2011 10:28-0500 BMI (Body Mass Index) 19.96 kg/m2 Noelle Bowden [facility] Internal Medicine Work Phone: 08-07-2011 10:28-0500 Body Temperature 97.5 [degF] Noelle Bowden [facility] Internal Medicine Work Phone: Comment on above: Method: Oral 08-07-2011 10:28-0500 Body weight 52.76 kg Noelle Bowden [facility] Internal Medicine Work Phone: 08-07-2011 10:28-0500 BP Diastolic 76 mm[Hg] Noelle Bowden [facility] Internal Medicine Work Phone: Comment on above: Patient Position: Sitting; Cuff Location : Left Arm; Cuff Size: Standard 08-07-2011 10:28-0500 BP Systolic 118 mm[Hg] Noelle Bowden [facility] Internal Medicine Work Phone: Comment on above: Patient Position: Sitting; Cuff Location : Left Arm; Cuff Size: Standard 08-07-2011 10:28-0500 BSA (Body Surface Area) 1.55 m2 Noelle Bowden [facility] Internal Medicine Work Phone: 08-07-2011 10:28-0500 Height 162.56 cm Noelle Bowden [facility] Internal Medicine Work Phone: 08-07-2011 10:28-0500 Pulse (Heart Rate) 78 /min Noelle Bowden [facility] Internal Medicine Work Phone: Comment on above: Pattern: Regular 08-07-2011 10:28-0500 Pulse Oximetry 98 % Noelle Bowden [facility] Internal Medicine Work Phone: Comment on above: Room air 05-24-2011 09:43-0400 BMI (Body Mass Index) 19.96 kg/m2 Noelle [facility] Work Phone: 05-24-2011 09:43-0400 Body weight 52.76 kg Noelle Bowden [facility] Internal Medicine Work Phone: 05-24-2011 09:43-0400 BP Diastolic 80 mm[Hg] Noelle Bowden [facility] Internal Medicine Work Phone: Comment on above: Patient Position: Sitting; Cuff Location : Left Arm; Cuff Size: Standard 05-24-2011 09:43-0400 BP Systolic 120 mm[Hg] Noelle Bowden [facility] Internal Medicine Work Phone: Comment on above: Patient Position: Sitting; Cuff Location : Left Arm; Cuff Size: Standard 05-24-2011 09:43-0400 BSA (Body Surface Area) 1.55 m2 Noelle Bowden [facility] Internal Medicine Work Phone: 05-24-2011 09:43-0400 Height 162.56 cm Noelle Bowden [facility] Internal Medicine Work Phone: 05-24-2011 09:43-0400 Pulse (Heart Rate) 68 /min Noelle Bowden [facility] Internal Medicine Work Phone: Comment on above: Pattern: Regular 05-24-2011 09:43-0400 Respiratory Rate 20 /min Noelle Bowden [facility] Internal Medicine Work Phone: Comment on above: Pattern: Unlabored 05-02-2011 10:59-0400 BMI (Body Mass Index) 20 kg/m2 Noelle [facility] Internal Medicine Work Phone: 05-02-2011 10:59-0400 Body weight 52.84 kg Noelle Bowden [facility] Internal Medicine Work Phone: 05-02-2011 10:59-0400 BP Diastolic 68 mm[Hg] Noelle Bowden [facility] Internal Medicine Work Phone: Comment on above: Patient Position: Sitting; Cuff Location : Left Arm; Cuff Size: Standard 05-02-2011 10:59-0400 BP Systolic 110 mm[Hg] Noelle Bowden [facility] Internal Medicine Work Phone: Comment on above: Patient Position: Sitting; Cuff Location : Left Arm; Cuff Size: Standard 05-02-2011 10:59-0400 BSA (Body Surface Area) 1.55 m2 Noelle Bowden [facility] Internal Medicine Work Phone: 05-02-2011 10:59-0400 Height 162.56 cm Noelle Bowden [facility] Internal Medicine Work Phone: 05-02-2011 10:59-0400 Pulse (Heart Rate) 60 /min Noelle Bowden [facility] Internal Medicine Work Phone: Comment on above: Pattern: Regular 05-02-2011 10:59-0400 Respiratory Rate 18 /min Noelle Bowden [facility] Internal Medicine Work Phone: Comment on above: Pattern: Unlabored 04-19-2011 14:40-0400 BMI (Body Mass Index) 20.77 kg/m2 Noelle Bowden [facility] Internal Medicine Work Phone: 04-19-2011 14:40-0400 Body weight 54.89 kg Noelle Bowden [facility] Internal Medicine Work Phone: 04-19-2011 14:40-0400 BP Diastolic 70 mm[Hg] Noelle Bowden [facility] Internal Medicine Work Phone: Comment on above: Patient Position: Sitting; Cuff Location : Left Arm; Cuff Size: Standard 04-19-2011 14:40-0400 BP Systolic 122 mm[Hg] Noelle Bowden [facility] Internal Medicine Work Phone: Comment on above: Patient Position: Sitting; Cuff Location : Left Arm; Cuff Size: Standard 04-19-2011 14:40-0400 BSA (Body Surface Area) 1.58 m2 oNelle Bowden [facility] Internal Medicine Work Phone: 04-19-2011 14:40-0400 Height 162.56 cm Noelle Bowden [facility] Internal Medicine Work Phone: 04-19-2011 14:40-0400 Pulse (Heart Rate) 60 /min Noelle Bowden [facility] Internal Medicine Work Phone: Comment on above: Pattern: Regular 04-19-2011 14:40-0400 Respiratory Rate 18 /min Noelle Bowden [facility] Internal Medicine Work Phone: Comment on above: Pattern: Unlabored 11-16-2009 08:45-0500 BMI (Body Mass Index) 20.77 kg/m2 Noelle Bowdne [facility] Internal Medicine Work Phone: 11-16-2009 08:45-0500 Body weight 54.89 kg Noelle Bowden [facility] Internal Medicine Work Phone: 11-16-2009 08:45-0500 BP Diastolic 80 mm[Hg] Noelle Bowden [facility] Internal Medicine Work Phone: Comment on above: Patient Position: Sitting; Cuff Location : Left Arm; Cuff Size: Large 11-16-2009 08:45-0500 BP Systolic 118 mm[Hg] Noelle Bowden [facility] Internal Medicine Work Phone: Comment on above: Patient Position: Sitting; Cuff Location : Left Arm; Cuff Size: Large 11-16-2009 08:45-0500 BSA (Body Surface Area) 1.58 m2 Noelle Bowden [facility] Internal Medicine Work Phone: 11-16-2009 08:45-0500 Height 162.56 cm Noelle Bowden [facility] Internal Medicine Work Phone: 11-16-2009 08:45-0500 Pulse (Heart Rate) 64 /min Noelle Bowden [facility] Internal Medicine Work Phone: Comment on above: Pattern: Regular 11-16-2009 08:45-0500 Respiratory Rate 20 /min Noelle Bowden [facility] Internal Medicine Work Phone: Comment on above: Pattern: Unlabored 10-17-2009 11:51-0500 BMI (Body Mass Index) 20.77 kg/m2 Noelle Bowden [facility] Internal Medicine Work Phone: 10-17-2009 11:51-0500 Body weight 54.89 kg Noelle Bowden [facility] Internal Medicine Work Phone: 10-17-2009 11:51-0500 BP Diastolic 76 mm[Hg] Noelle Bowden [facility] Internal Medicine Work Phone: Comment on above: Patient Position: Sitting; Cuff Location : Left Arm; Cuff Size: Large 10-17-2009 11:51-0500 BP Systolic 108 mm[Hg] Noelle Bowden [facility] Internal Medicine Work Phone: Comment on above: Patient Position: Sitting; Cuff Location : Left Arm; Cuff Size: Large 10-17-2009 11:51-0500 BSA (Body Surface Area) 1.58 m2 Noelle Bowden [facility] Internal Medicine Work Phone: 10-17-2009 11:51-0500 Height 162.56 cm Noelle Bowden [facility] Internal Medicine Work Phone: 10-17-2009 11:51-0500 Pulse (Heart Rate) 60 /min Noelle Bowden [facility] Internal Medicine Work Phone: Comment on above: Pattern: Regular 10-17-2009 11:51-0500 Pulse Oximetry 98 % Noelle Bowden [facility] Internal Medicine Work Phone: Comment on above: Room air 10-17-2009 11:51-0500 Respiratory Rate 18 /min Noelle Bowden [facility] Internal Medicine Work Phone: Comment on above: Pattern: Unlabored 10-03-2009 15:34-0500 Body Temperature 97.5 [degF] Noelle Bowden [facility] Internal Medicine Work Phone: 10-03-2009 15:34-0500 BP Diastolic 64 mm[Hg] Noelle Bowden [facility] Internal Medicine Work Phone: Comment on above: Patient Position: Sitting; Cuff Location : Left Arm; Cuff Size: Standard 10-03-2009 15:34-0500 BP Systolic 104 mm[Hg] Noelle Bowden [facility] Internal Medicine Work Phone: Comment on above: Patient Position: Sitting; Cuff Location : Left Arm; Cuff Size: Standard 10-03-2009 15:34-0500 Pulse (Heart Rate) 76 /min Noelle Bowden [facility] Internal Medicine Work Phone: Comment on above: Pattern: Regular 10-03-2009 15:34-0500 Respiratory Rate 16 /min Noelle Bowden [facility] Internal Medicine Work Phone: Comment on above: Pattern: Unlabored 12-17-2007 10:47-0400 BMI (Body Mass Index) 20.77 kg/m2 Noelle Bowden [facility] Internal Medicine Work Phone: 12-17-2007 10:47-0400 Body weight 54.89 kg Noelle oBwden [facility] Internal Medicine Work Phone: 12-17-2007 10:47-0400 BP Diastolic 80 mm[Hg] Noelle Bowden [facility] Internal Medicine Work Phone: Comment on above: Patient Position: Sitting; Cuff Location : Left Arm; Cuff Size: Standard 12-17-2007 10:47-0400 BP Systolic 128 mm[Hg] Noelle Bowden [facility] Internal Medicine Work Phone: Comment on above: Patient Position: Sitting; Cuff Location : Left Arm; Cuff Size: Standard 12-17-2007 10:47-0400 BSA (Body Surface Area) 1.58 m2 Noelle Bowden [facility] Internal Medicine Work Phone: 12-17-2007 10:47-0400 Head Circumference 0 cm Noelle Bowden [facility] Internal Medicine Work Phone: 12-17-2007 10:47-0400 Height 162.56 cm Noelle Bowden [facility] Internal Medicine Work Phone: 12-17-2007 10:47-0400 Pulse (Heart Rate) 80 /min Noelle Bowden [facility] Internal Medicine Work Phone: Comment on above: Pattern: Regular 12-17-2007 10:47-0400 Respiratory Rate 16 /min Noelle Bowden [facility] Internal Medicine Work Phone: Comment on above: Pattern: Unlabored 11-24-2007 11:47-0500 BMI (Body Mass Index) 20.96 kg/m2 Noelle Bowden [facility] Internal Medicine Work Phone: 11-24-2007 11:47-0500 Body weight 55.4 kg Noelle Bowden [facility] Internal Medicine Work Phone: 11-24-2007 11:47-0500 BP Diastolic 76 mm[Hg] Noelle Bowden [facility] Internal Medicine Work Phone: Comment on above: Patient Position: Sitting; Cuff Location : Left Arm; Cuff Size: Standard 11-24-2007 11:47-0500 BP Systolic 112 mm[Hg] Noelle Bowden [facility] Internal Medicine Work Phone: Comment on above: Patient Position: Sitting; Cuff Location : Left Arm; Cuff Size: Standard 11-24-2007 11:47-0500 BSA (Body Surface Area) 1.59 m2 Noelle Bowden [facility] Internal Medicine Work Phone: 11-24-2007 11:47-0500 Head Circumference 0 cm Noelle Bowden [facility] Internal Medicine Work Phone: 11-24-2007 11:47-0500 Height 162.56 cm Noelle Bowden [facility] Internal Medicine Work Phone: 11-24-2007 11:47-0500 Pulse (Heart Rate) 80 /min Noelle Bowden [facility] Internal Medicine Work Phone: Comment on above: Pattern: Regular 11-24-2007 11:47-0500 Respiratory Rate 20 /min Noelle Bowden [facility] Internal Medicine Work Phone: Comment on above: Pattern: Unlabored 03-17-2007 09:53-0400 Body Temperature 97.8 [degF] Noelle Bowden [facility] Internal Medicine Work Phone: Comment on above: Method: Oral 03-17-2007 09:53-0400 Body weight 53.52 kg Noelle Bowden [facility] Internal Medicine Work Phone: 03-17-2007 09:53-0400 BP Diastolic 78 mm[Hg] Noelle [facility] Work Phone: Comment on above: Patient Position: Sitting; Cuff Location : Right Arm; Cuff Size: Standard 03-17-2007 09:53-0400 BP Systolic 120 mm[Hg] Noelle Bowden [facility] Internal Medicine Work Phone: Comment on above: Patient Position: Sitting; Cuff Location : Right Arm; Cuff Size: Standard 03-17-2007 09:53-0400 Head Circumference 0 cm Noelle [facility] Work Phone: 03-17-2007 09:53-0400 Height 0 cm Noelle Bowden [facility] Internal Medicine Work Phone: 03-17-2007 09:53-0400 Pulse (Heart Rate) 60 /min Noelle Bowden [facility] Internal Medicine Work Phone: Comment on above: Pattern: Regular 03-17-2007 09:53-0400 Respiratory Rate 16 /min Noelle Bowden [facility] Internal Medicine Work Phone: Comment on above: Pattern: Unlabored Encounters Encounter Date Encounter Type Care Provider Facility Start: 05-03-2025 ambulatory [facility] Facility :[facility] Start: 04-16-2025 End: 04-16-2025 Emergency department patient visit Dr. Naomie Martini MD Work Phone: -Emergency Department Work Phone: Start: 01-04-2025 End: 01-04-2025 Patient encounter procedure Ignacio Hernandez [place] -[facility] Work Phone: Start: 01-04-2025 End: 01-04-2025 ambulatory Naomie Martini Facility:[facility] Start: 12-30-2024 End: 12-30-[address] Naomie Martini MD Work Phone: [facility] Work Phone: Start: 12-30-2024 End: 12-30-[address] Naomie Martini MD -Laboratory, [place] Start: 12-30-2024 End: 12-30-2024 ambulatory Efrobertongbe Olecaritoe Facility:[facility] Start: 12-23-2024 End: 12-23-[address] Naomie Martini MD -[facility] Work Phone: Start: 12-23-2024 End: 12-23-2024 ambulatory Efrobertongbe Olecaritoe Facility:[facility] Start: 09-02-2024 End: 09-02-2024 ambulatory Efewongbe Olecaritoe Facility:[facility] Start: 08-27-2024 [facility] Start: 08-18-2024 End: 08-18-2024 ambulatory Efrobertongbe Jarrode Facility:[facility] Start: 08-17-2024 ambulatory Efrobertongbe Jarrode Facili ty:[facility] Start: 08-10-2024 End: 08-10-2024 ambulatory Efrobertongbe Olecaritoe Facility:[facility] Start: 08-10-2024 End: 08-10-2024 ambulatory Efewongbe Olecaritoe Facility:[facility] Start: 08-04-2024 End: 08-04-2024 ambulatory [facility] Rigoberto [facility] Facility:[facility] Start: 07-16-2024 End: 07-16-2024 ambulatory [facility] Rigoberto [facility] Facility:[facility] Start: 07-13-2024 End: 07-13-2024 [facility] Start: 06-17-2024 End: 06-17-2024 ambulatory Efrobertongbe Jarrode Facility:[facility] Start: 06-17-2024 End: 06-17-2024 ambulatory Katie [facility] Facility:[facility] Start: 04-27-2024 End: 07-24-2024 ambulatory FRANCISCA RIVERA MD Facility:[facility] Start: 04-27-2024 End: 07-24-2024 Physical therapy management FRANCISCA RIVERA MD [facility] Start: 04-22-2024 End: 04-22-2024 Orders Only Francisca [...] Start: 03-25-2024 End: 03-25-2024 ambulatory JUDD SANDOVAL Facility:[facility] Start: 03-25-2024 End: 03-25-2024 Subsequent hospital visit [...] Start: 03-11-2024 End: 03-11-2024 ambulatory FRANCISCA RIVERA Facility:[facility] Start: 03-11-2024 End: 03-11-2024 Subsequent hospital visit by physician Tricia Mcadams Mc [facility] Comment on above: Other closed fractur e of shaft of left fibula, initial encounter [S82.492A] Start: 03-09-2024 Orders Only Francisca cedillo MD Work Phone: Orthopedics Comment on above: Other closed fractur e of shaft of left fibula, initial encounter (Primary Dx) Start: 03-07-2024 End: 03-07-2024 Emergency department patient visit PRINCESS FLEMING Facility:[facility] Start: 03-07-2024 End: 03-07-2024 Subsequent hospital visit by physician Tricia [facility] Work Phone: Radiology Comment on above: Left leg pain [M79.6 05] Start: 03-07-2024 End: 03-07-2024 ambulatory PRINCESS FLEMING Facility:[facility] Start: 03-07-2024 End: 03-07-2024 Patient encounter procedure Hanna COFFMAN Work Phone: [facility] Comment on above: Left leg pain (Prima ry Dx); Other closed fracture of shaft of left fibula, initial encounter Start: 02-28-2024 End: 02-28-2024 Emergency department patient visit FÉLIX ROMAN MD [facility] Start: 02-06-[address] Romeo Martini MD Work Phone: [facility] Start: 04-29-2023 End: 04-29-[address] Naomie Martini Work Phone: [facility] Work Phone: Start: 04-29-2023 End: 04-29-[address] Naomie Martini Work Phone: [facility] Work Phone: Start: 04-24-2023 End: 04-24-2023 Patient encounter procedure Dr. Naomie Martini Work Phone: [facility] Work Phone: Start: 04-22-2023 End: 04-22-[address] Naomie Martini Work Phone: [facility] Work Phone: Start: 04-17-2023 Non-patient / Non-visit Dr. Dena Martini Work Phone: [facility] Start: 04-17-2023 End: 04-17-2023 Admission to same day surgery center Dr. Naomie Martini Work Phone: [facility] Work Phone: Start: 04-04-2023 End: 04-04-[address] Naomie Martini Work Phone: [facility] Work Phone: Start: 03-28-2023 End: 03-28-[address] Naomie Martini Work Phone: [facility] Work Phone: Start: 03-28-2023 End: 03-28-[address] Naomie Martini Work Phone: [facility] Work Phone: Start: 03-15-[address] Romeo Martini Work Phone: [facility] Start: 03-15-2023 End: 03-15-[address] Naomie Martini Work Phone: [facility] Work Phone: Start: 03-15-2023 End: 03-15-2023 Encounter for general adult medical examination without abnormal findings Dr. Naomie Martini Work Phone: [facility] Start: 03-15-2023 End: 03-15-[address] Naomie Martini Work Phone: [facility] Start: 01-22-2023 End: 01-22-[address] Naomie Martini Work Phone: [facility] Work Phone: Start: 01-22-2023 End: 01-22-[address] Naomie Martini Work Phone: [facility] Start: 01-22-2023 End: 01-22-[address] Naomie Martini Work Phone: [facility] Start: 10-19-2022 End: 10-19-[address] Naomie Martini Work Phone: [facility] Start: 07-17-2022 End: 07-17-[address] Naomie Martini Work Phone: [facility] Start: 07-10-2022 End: 07-10-[address] Naomie Martini Work Phone: [facility] Work Phone: Start: 07-10-2022 End: 07-10-[address] [facility] [place] Start: 04-26-2022 End: 04-26-[address] Naomie Martini Work Phone: [facility] Start: 04-03-2022 End: 04-03-[address] Naomie Martini Work Phone: [facility] Start: 12-19-2021 End: 12-19-[address] Naomie Martini Work Phone: [facility], [facility] Start: 10-25-2021 End: 10-25-[address] [facility] Martini [facility] [place] Start: 10-27-2020 End: 10-27-2020 Office outpatient visit 10 minutes Noelle Kelsey [facility] Start: 07-29-2019 End: 07-29-2019 Office outpatient visit 15 minutes Noelle Kelsey [facility] Start: 06-08-2019 End: 06-08-2019 Periodic preventive med est patient 40-64yrs Noelle Dennise [facility] Start: 08-12-2018 End: 08-12-2018 Office outpatient visit 15 minutes Noelle Bowden [facility] Start: 06-13-2018 End: 06-13-2018 Office outpatient visit 15 minutes Noelle Dennise [facility] Start: 06-05-2018 End: 06-05-2018 Periodic preventive med est patient 65yrs& older Noelle Bowden [facility] Start: 06-19-2017 End: 06-19-2017 Phone Encounter Noelle Bowden [facility] Start: 06-17-2017 End: 06-17-2017 Periodic preventive med est patient 40-64yrs Noelle Dennise [facility] Start: 01-17-2017 End: 01-17-2017 Office outpatient visit 15 minutes Noelle Bowden [facility] Start: 10-29-2016 End: 10-29-2016 Office outpatient visit 15 minutes Noelle Bowden [facility] Start: 06-18-2016 End: 06-18-2016 Periodic preventive med est patient 40-64yrs Noelle Dennise [facility] Start: 02-09-2016 End: 02-09-2016 Office outpatient visit 15 minutes Noelle Bowden [facility] Start: 12-28-2015 End: 12-28-2015 Office outpatient visit 15 minutes Noelle Bowden [facility] Start: 10-03-2015 End: 10-03-2015 Office outpatient visit 25 minutes Noelle Bowden [facility] Start: 08-29-2015 End: 08-29-2015 Office outpatient visit 25 minutes Noelle Bowden [facility] Start: 07-18-2015 End: 07-18-2015 Office outpatient visit 25 minutes Noelle Bowden [facility] Start: 07-01-2015 End: 07-01-2015 Office outpatient visit 15 minutes Noelle Bowden [facility] Start: 06-17-2015 End: 06-17-2015 Periodic preventive med est patient 40-64yrs Noelle Dennise [facility] Start: 06-14-2014 End: 06-14-2014 Periodic preventive med est patient 40-64yrs Noelle Dennise [facility] Start: 12-30-2013 End: 12-30-2013 Patient encounter procedure Noelle Bowden [facility] Start: 06-15-2013 End: 06-15-2013 Patient encounter procedure Noelle Bowden [facility] Start: 09-01-2012 End: 09-01-2012 Phone Encounter Noelle Bowden [facility] Start: 09-01-2012 End: 09-01-2012 Phone Encounter Noelle Bowden [facility] Start: 08-22-2012 End: 08-22-2012 Patient encounter procedure Noelle Bowden [facility] Start: 07-24-2012 End: 07-24-2012 Patient encounter procedure Noelle Bowden [facility] Start: 06-25-2012 End: 06-25-2012 Patient encounter procedure Noelle Bowden [facility] Start: 06-05-2012 End: 06-05-2012 Patient encounter procedure Noelle Bowden [facility] Start: 08-07-2011 End: 08-07-2011 Office outpatient visit 25 minutes Noelle Bowden [facility] Start: 05-24-2011 End: 05-24-2011 Patient encounter procedure Noelle Bowden [facility] Start: 05-02-2011 End: 05-02-2011 Patient encounter procedure Noelle Bowden [facility] Start: 04-26-2011 End: 04-26-2011 Phone Encounter Noelle Bowden [facility] Start: 04-19-2011 End: 04-19-2011 Office outpatient visit 10 minutes Noelle Bowden [facility] Start: 11-16-2009 End: 11-16-2009 Patient encounter procedure Noelle Bowden [facility] Start: 10-17-2009 End: 10-17-2009 Office outpatient visit 25 minutes Noellehernán Bowden [facility] Start: 10-03-2009 End: 10-03-2009 Patient encounter procedure Noelle Bowden [facility] Start: 12-17-2007 End: 12-17-2007 Patient encounter procedure Noelle Bowden [facility] Start: 11-24-2007 End: 11-24-2007 Patient encounter procedure Noelle Bowden [facility] Start: 03-17-2007 End: 03-17-2007 Office outpatient visit 25 minutes Noellehernán Medranoon [facility] Procedures Date Procedure Procedure Detail Performing Clinician Start: 04-16-2025 Plain chest X-ray Dr. Naomie Martini MD Work Phone: Start: 04-16-[address] Naomie Martini MD Work Phone: Start: 04-22-2024 Radex ankle complete minimum 3 views Francisca Rivera MD Work Phone: Start: 03-25-2024 Mri any jt lower extrem w/o contrast matrl Judd Beanim PA-C Work Phone: Start: 03-11-2024 Radiologic examination ankle 2 views Juddezequiel Mareskarim PA-C Work Phone: Start: 03-07-2024 Radiologic examination tibia & fibula 2 views Hanna Cuello PA Work Phone: Start: 04-29-[address] [...] Medicine Office Visit Comments: See Note; NOTES: [facility] [address] [place] [address] [place] [address] OFFICE VISIT Date of Service: 11/07/20 MR#: [id number] Acct: [id number] Name: KADIE VILLALINE Carin Rep #: [id number] : 1965 Provider: Dr. Naomie west MD Age/Sex: 55/F Location: [facility] Status: Signed Intake Vital Signs 11/07/20 Height [...] mg PO DAILY 11/07/20 [History Confirmed 11/07/20] [facility] Medical History (Updated 11/07/20 @ 10:26 by [...] to her prior PCP, her BP was normal. Does not report chest pain, palpitations or [...] acute distress Orientation: alert, awake, oriented x3 HENKY Head: normal to inspection, normocephalic, atraumatic Ears: [...] any concerns. This note was generated with Horsealotation software. It may contain incorrect words, spelling, and punctuation that were not noted in checking the note before signing. Coding Level of Care Code Off vis,new,level 3 Diagnoses Dermatitis L30.9 Elevated blood pressure reading without diagnosis of hypertension R03.0 02/15/21 1347 <Electronically signed by Naomie Martini MD> Date Naomie Martini MD Cosigner Signature: Date (if applicable) CC: Noelle Bowden Start: 07-22-2018 End: 07-23-2018 Dexa Bone Density Study Comments: See Note; NOTES: [facility] Imaging Services [address] [place] [address] Dexa Bone Density Study MR#: [id number] Acct: [id number] Name: FELICITY VILLA V Rep #: [id number] : 1965 F 53 From: Terry Pérez MD PCP: Noelle Bowden DO Status: [facility] Study: Dexa Bone Density Study Date of Exam: 07/22/18 Exam# [id number] Ordering Dr: Noelle Bowden DO STUDY: DUAL [...] Terry Pérez MD at 10:10 EDT Tel [phone], Service support , CC: Noelle Bowden DO [employer] Repairer: Signed Noelle Bowden Work Phone: Start: 07-22-2018 End: 07-23-2018 SCREENING MAMM (CAD), BILAT Comments: See Note; NOTES: [facility] Imaging Services [address] [place] [address] SCREENING MAMM (CAD), BILAT MR#: [id number] Acct: [id number] Name: FELICITY VILLA V Rep #: [id number] : 1965 F 53 From: Terry Pérez MD PCP: Noelle Bowden DO Status: REG CLI Study: SCREENING MAMM (CAD), BILAT Date of Exam: 07/22/18 Exam# [id number] Ordering Dr: Noelle Bowden DO MAMMOGRAPHY - [...] delay biopsy of a clinically suspicious abnormality. [id number] Electronically Signed: Terry Pérez MD at 8:05 EDT Tel [phone], Service support , CC: Noelle Bowden DO [employer] Repairer: Signed Noelle Medranoon Work Phone: Start: 07-11-2018 End: 07-11-2018 Urgent Care Visit Report Comments: See Note; NOTES: [facility] [address] [place] [address] OFFICE VISIT Date of Service: 07/11/18 MR#: [id number] Acct: [id number] Name: FELICITY VILLA V Rep #: [id number] : 1965 Provider: Cruz Ch NP Age/Sex: 53/F Location: [facility] Status: Signed Intake Vital Signs07/11/18 Blood Pressure [...] oriented x3 Limitations: mental status not altered [facility] Head: normal to inspection Ears: hearing grossly [...] Carotid Duplex Ultrasound Comments: See Note; NOTES: [facility] Cardiovascular Services [address] [place] [address] Carotid Duplex Ultrasound 06/20/18 1108 MR#: [id number] Acct: [id number] Name: FELICITY VILLA V Rep #: [id number] : 1965 53 From: Michael Lopez MD Attending Dr: Noelle Bowden DO Status: REG CLI Ordering Dr: Noelle Bowden DO Date: 06/20/18 Location: [facility] Sex: F C Admitted: Reason For Study: [...] the left vertebral artery. Procedure Carotid Duplex 71880. Exam performed in department. Interpretation Summary Mild (<50%) stenosis right extracranial internal carotid. Mild (<50%) stenosis left extracranial internal carotid. Flow within the vertebral arteries is antegrade bilaterally. Ordering Physician: Noelle Bowden Referring Physician: Noelle Bowden Performed By: China Nation RVT and Student 06/25/18752 Date Michael Lopez MD CC: Noelle Bowden DO Date Dictated: 06/20/18 1108 Date Transcribed: 06/25/18752 [employer] Repairer: Signed Noelle Bowden Work Phone: Start: 06-25-2018 End: 06-25-2018 Carotid Duplex Ultrasound Comments: See Note; NOTES: [facility] Cardiovascular Services [address] [place] [address] Carotid Duplex Ultrasound 06/20/18 1108 MR#: [id number] Acct: [id number] Name: FELICITY VILLA V Rep #: [id number] : 1965 53 From: Michael Lopez MD Attending Dr: Noelle Bowden DO Status: REG CLI Ordering Dr: Noelle Bowden DO Date: 06/20/18 Location: [facility] Sex: F C Admitted: Reason For Study: [...] the left vertebral artery. Procedure Carotid Duplex 14656. Exam performed in department. Interpretation Summary Mild (<50%) stenosis right extracranial internal carotid. Mild (<50%) stenosis left extracranial internal carotid. Flow within the vertebral arteries is antegrade bilaterally. Ordering Physician: Noelle Bowden Referring Physician: Noelle Bowden Performed By: China Nation RVT and Student 06/25/18 0753 Date Michael Lopez MD CC: Noelle Bowden DO Date Dictated: 06/20/18 1108 Date Transcribed: 06/25/18752 [employer] Repairer: Signed Noelle Bowden Work Phone: Start: 05-27-2018 End: 05-27-2018 Emergency Department Summary Comments: See Note; NOTES: [facility] Medical Records Department [address] [place] [address] Emergency Department Summary 05/27/1838 MR#: [id number] Acct: [id number] Name: FELICITY VILLA V Rep #: [id number] : 1965 53 From: Abdirahman Perdue MD [...] Chest pain This note was generated with [employer] dictation software. It may contain incorrect words, spelling, and punctuation that were not noted in review of the chart prior to signing ED Disposition - Plan for ED Patient: Chief Complaint: Chest Pain Referrals: Noelle Bowden DO [Primary Care Provider] - What to do if you have Problems For any increased pain, shortness of breath, bleeding, nausea or vomiting, chest pain, or any unexpected problems, contact your Primary Care Provider. Call [facility] ([phone]) or report to the closest Emergency Room. Call 911 if necessary. 05/27/18 09 <Electronically signed by Abdirahman Perdue MD> Date Abdirahman Perdue MD Cosigner Signature (If Indicated): Date CC: Noelle Hairstoneen Dennise Start: 05-27-2018 End: 05-27-2018 Chest 1 View (Portable) Comments: See Note; NOTES: [facility] Imaging Services [address] [place] [address] Chest 1 View (Portable) MR#: [id number] Acct: [id number] Name: FELICITY VILLA V Rep #: [id number] : 1965 F 53 From: Terry Pérez MD PCP: Noelle Bowden DO Status: REG ER Study: Chest 1 View (Portable) Date of Exam: 05/27/18 Exam# [id number] Ordering Dr: Abdirahman Perdue MD STUDY: X-RAY [...] Terry Pérez MD at 9:19 EDT Tel [phone], Service support , CC: Noelle Bowden DO; Abdirahman Perdue MD [employer] Repairer: Signed Noelle Bowden Start: 10-02-2017 End: 10-02-2017 Urgent Care Visit Report Comments: See Note; NOTES: [facility] [address] [place] [address] [address] [place] [address] OFFICE VISIT Date of Service: 10/02/17 MR#: [id number] Acct: [id number] Name: FELICITY VILLA V Rep #: [id number] : 1965 Provider: Ignacio COFFMAN Age/Sex: 52/F Location: [facility] Status: Signed Intake Vital Signs10/02/17 Height 5 [...] body habitus Orientation: alert, awake, oriented x3 HENMT Head: normal to inspection [...] Date (if applicable) CC: Noelle Bowden Start: 09-28-2017 End: 09-28-2017 Urgent Care Visit Report Comments: See Note; NOTES: [facility] [address] [place] [address] OFFICE VISIT Date of Service: 09/28/17 MR#: [id number] Acct: [id number] Name: FELICITY VILLA V Rep #: [id number] : 1965 Provider: Jason COFFMAN Age/Sex: 52/F Location: [facility] Status: Signed Intake Vital Signs09/28/17 Height 5 [...] Start: 10-12-2016 End: 10-12-2016 SCREENING MAMM (CAD), BILAT Comments: See Note; NOTES: [facility] Imaging Services [address] [place] [address] Verdana 4d SCREENING MAMM (CAD), BILAT MR#: [id number] Acct: [id number] Name: ALLENFELICITY V Rep #: [id number] : 1965 F 51 From: Terry Pérez MD PCP: Noelle Bowden DO Status: [facility] Study: SCREENING MAMM (CAD), BILAT Date of Exam: 10/12/16 Exam# [id number] Ordering Dr: Noelle Bowden DO MAMMOGRAPHY - [...] delay biopsy of a clinically suspicious abnormality. [id number] Electronically Signed: Terry Pérez MD at 9:20 EST Tel [phone], Service support [phone], CC: Noelle Bowden DO [employer] Repairer: Signed Noelle Bowden Work Phone: Start: 11-05-2015 End: 11-05-2015 Carotid Duplex Ultrasound Comments: See Note; NOTES: [facility] Cardiovascular Services [address] [place] [address] Carotid Duplex Ultrasound 11/02/15 0955 MR#: [id number] Acct: [id number] Name: FELICITY VILLA V Rep #: [id number] : 1965 50 From: Michael Lopez MD Attending Dr: Maria Elena Orr DO Status: REG CLI Ordering Dr: Maria Elena Orr DO Date: 11/02/15 Location: [facility] Sex: F C Admitted: Rt. Velocities/BP Lt. [...] the left vertebral artery. Procedure Carotid Duplex 13744. Exam performed in department. Interpretation Summary Mild (<50%) stenosis right extracranial internal carotid. Mild (<50%) stenosis left extracranial internal carotid. Flow within the vertebral arteries is antegrade bilaterally. Ordering Physician: Maria Elena Orr Performed By: China Nation RVT 11/05/15 1152 Date Michael Lopez MD CC: Maria Elena Orr DO; Noelle Medranotelma MARTINEZ Date Dictated: 11/02/15 0955 Date Transcribed: 11/05/15 1152 [employer] Repairer: Signed Maria Elena Orr Work Phone: Start: 09-02-2015 End: 09-05-2015 Echocardiogram Complete Comments: See Note; NOTES: [facility] Cardiovascular Services [address] [place] [address] Echo Complete 09/02/15 0839 MR#: [id number] Acct: [id number] Name: FELICITY VILLA V Rep #: [id number] : 1965 50 From: Abdirahman Butler MD Attending Dr: Maria Elena Orr DO Status: REG CLI Ordering Dr: Maria Elena Orr DO Date: 09/02/15 Location: [facility] Sex: F C Admitted: Procedure This was [...] Elena Orr Performed By: Clair [place] RDCS 09/02/151828 Date Abdirahman Butler MD CC: Maria Elena Orr DO; Noelle Bowden DO Date Dictated: 09/02/15 0839 Date Transcribed: 09/02/151828 [employer]enc[employer] Repairer: Signed Maria Elena Orr Work Phone: Start: 09-02-2015 End: 09-05-2015 Brain/Head W/WO Contrast Comments: See Note; NOTES: [facility] Imaging Services [address] [place] [address] Verda 4d Brain/Head W/WO Contrast MR#: [id number] Acct: [id number] Name: KADIE VILLAKIRTI Del Rosario Rep #: [id number] : 1965 F 50 From: Terry Pérez MD PCP: Noelle Bowden DO Status: REG CLI Study: Brain/Head W/WO Contrast Date of Exam: 09/02/15 Exam# [id number] Ordering Dr: Maria Elena Orr DO STUDY: [...] Terry Pérez MD at 14:29 EST Tel [phone], Service support [phone], CC: Maria Elena Orr DO; Noelle Bowden DO [employer] Repairer: Signed Maria Elena Orr Work Phone: Start: 09-02-2015 End: 09-05-2015 Chest WITH Contrast Comments: See Note; NOTES: [facility] Imaging Services [address] [place] [address] [place] 4d Chest WITH Contrast MR#: [id number] Acct: [id number] Name: FELICITY VILLA V Rep #: [id number] : 1965 F 50 From: Terry Pérez MD PCP: Noelle Bowden DO Status: REG CLI Study: Chest WITH Contrast Date of Exam: 09/02/15 Exam# [id number] Ordering Dr: Maria Elena Orr DO STUDY: [...] Terry Pérez MD at 13:49 EST Tel [phone], Service support [phone], CC: Maria Elena Orr DO; Noelle Bowden DO [employer] Repairer: Signed Maria Elena Orr Work Phone: Start: 09-02-2015 End: 09-05-2015 Nuclear Stress Test - Treadmil Comments: See Note; NOTES: [facility] Imaging Services [address] [place] [address] Verda 4d Nuclear Stress Test - Treadmil MR#: [id number] Acct: [id number] Name: FELICITY VILLA V Rep #: [id number] : 1965 50 From: Abdirahman Butler MD [...] 64%. Abdirahman Butler MD T: NTS JOB: [id number] 09/03/15906 <Electronically signed by Abdirahman Butler MD> Date Abdirahman Butler MD CC: Maria Elena Orr DO; Noelle Bowden DO Date Dictated: 09/02/15937 Date Transcribed: 09/02/15937 [employer] Repairer: Signed Maria Elena Holland Phone: Start: 08-30-2015 End: 08-31-2015 Pelvic (Non ) Comments: See Note; NOTES: [facility] Imaging Services [facility] [place] [address] Verdana 4d Pelvic (Non ) MR#: [id number] Acct: [id number] Name: FELICITY VILLA V Rep #: [id number] : 1965 F 50 From: Yg Evans MD PCP: Noelle Bowden DO Status: REG CLI Study: Pelvic (Non ) Date of Exam: 08/30/15 Exam# [id number] Ordering Dr: Maria Elena Orr DO STUDY: [...] at 3:27 EST Tel , Service support [phone], CC: Maria Elena Orr DO; Noelle Bowden DO [employer] Repairer: Signed Maria Elena Saez Agrican Phone: Start: 08-29-2015 End: 08-29-2015 Ecg routine ecg w/least 12 lds w/i&r [MEASUREMENTS ANALYSIS] Date of Test: 08/29/2015 10:48:29; Heart Rate: 77; MN Interval: 116; QRS: 90; QT Interval: 394; Corrected QT Interval (QTc): 423; P Wave Bryant: 35; QRS Wave Bryant: 53; T Wave Bryant: 57; Blood Pressure: 102/64 [ECG DIAGNOSTIC STATEMENTS] Date of Test: 08/29/2015 10:48:29; Summary: Sinus Rhythm -Short MN syndrome Andree = 116- T-abnormality - Anteroseptal/anterior ischemia. ABNORMAL Maria Elena Saez Agrican Phone: Comment on above: ekg- sinus with asymetric t wave inversi on ant- noted to be in v3 now not previoulsy Start: 08-29-2015 End: 08-29-2015 Spmtry w/vc expiratory giorgio w/wo mxml vol vntj _ Maria Elena Saez Agrican Phone: Comment on above: good effort and curve normal Start: 08-01-2015 End: 08-02-2015 Inital Evaluation - PT Comments: See Note; NOTES: [facility] [address] [place] [address]. [address] [place] [address] Fax REHABILITATION SERVICES INITIAL EVALUATION MR#: [id number] Acct: [id number] Name: FELICITY VILLA V Rep #: [id number] : 1965 50 From: Delmi Castro Referring DrJaja: Maria Elena Orr DO Status: REG RCR Insurance: [facility] [employer] Eval Date: Patient's Visit Information FELICITY [...] for treatment manipulation neck and back. 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 SOCIAL: - Objective POSTURE:mild posture ,reduce lordosis. [...] Weeks - Rehabilitation Potential Physical Therapy Diagnosis: Thia patient presents to physical therapy with lumbar [...] to be FAXED BACK to us at [phone] for Medicare purposes. Please let me know [...] Min 4 Views Comments: See Note; NOTES: [facility] Imaging Services [address] [place] [address] Altadarojelio 4d L/S Spine Min 4 Views MR#: [id number] Acct: [id number] Name: FELICITY VILLA V Rep #: [id number] : 1965 F 50 From: Juan Minaya MD PCP: Noelle Bowden DO Status: REG CLI Study: L/S Spine Min 4 Views Date of Exam: 07/18/15 Exam# [id number] Ordering Dr: Maria Elena Orr DO STUDY: [...] FACR at 12:39 EDT , Service support [phone], RAD/L/S Spine Min 4 Views IMPRESSION: Normal x-ray examination of the lumbar spine. Electronically Signed: Juan Minaya MD, FACR at 12:39 EDT , Service support [phone], CC: Maria Elena Orr DO; Noelle Bowden DO [employer] Repairer: Signed Maria Elena Orr Work Phone: Start: 05-28-2011 Lipid 1996 panel - Serum or Plasma Krislyn Aberegg PA Work Phone: Plan of Treatment Date Care Activity Detail Author Start: 04-16-2025 [facility] Start: 04-16-2025 [facility] Start: 05-24-2024 Covid-19 Vaccine ( season) Covid-19 Vaccine () [facility] Start: 05-24-2024 Influenza vaccination C [facility] Start: 04-22-2024 End: 04-22-2024 Patient encounter procedure 04/22/2024 9:20 AM EDT Office Visit Orthopedics [address] [place] [address] Francisca Rivera MD [address] [place] [address] left leg f/u fx Orthopedics Comment on above: left leg f/u fx Start: 04-15-2024 End: 04-15-2024 Patient encounter procedure 04/15/2024 8:00 AM EDT Appointment Radiology [address] [place] [address] Other closed fracture of shaft of left [...] 09-23-2023 Behavioral Health Screening Behavioral Health Screening [facility] Start: 05-24-2023 Covid-19 Vaccine ( season) Covid-19 Vaccine () [facility] Start: 04-17-2023 Colsc flx w/rmvl of tumor polyp lesion snare tq COLONOSCOPY W/LESION REMOVAL [facility] Start: 04-17-2023 Patient discharge [facility] Start: 03-15-2023 Patient referral [facility] Work Phone: Start: 10-27-2020 Procedure Education Eprescribe d prescriptions (G8553) [facility]; [facility] Work Phone: Start: 07-29-2019 Procedure Education Eprescribe d prescriptions (G8553) [facility] Work Phone: Start: 07-29-2019 Provider Instruction s for Treatment [facility] Work Phone: Start: 07-29-2019 HbA1c (Bld) [Mass fraction] HGB A1C (05674) [facility] Work Phone: Start: 06-08-2019 Glucose [Mass/Vol] [facility] Work Phone: Start: 06-08-2019 Lipoprotein blood qu an numbers & subclasses NMR Profile (13050) [facility] Work Phone: Start: 08-12-2018 Provider Instruction s for Treatment Reviewed Diagnostic Tests [facility] Work Phone: Start: 08-12-2018 25 hydroxy includes fractions if performed CALCIFEDIOL (50302) [facility] Work Phone: Start: 06-13-2018 Provider Instruction s for Treatment [facility] Work Phone: Start: 06-05-2018 Procedure Education Eprescribe d prescriptions (G8553) [facility] Work Phone: Start: 06-05-2018 Provider Instruction s for Treatment [facility] Work Phone: Start: 06-05-2018 Hepatitis c antibody HEPATITIS C ANTIBODY (52689) [facility] Work Phone: Start: 06-17-2017 Provider Instruction s for Treatment [facility] Work Phone: Start: 06-17-2017 Urnls dip stick/tabl et rgnt non-auto w/o micrscp Urinalysis, Office (01143) [facility] Work Phone: Start: 01-17-2017 [...] ant neoplasm of cervix Cervical Cancer Screening [facility] Start: 06-18-2016 Provider Instruction s for Treatment [facility] Work Phone: Start: 06-18-2016 Blood occult fecal h gb deter ia qual feces 1-3 FECAL OCCULT- Tubes sent home (70803) [facility] Work Phone: Start: 06-18-2016 Cytp cerv/vag auto t hin layer prep mnl screen Thin prep Pap (58321) (no STD testing) [facility] Work Phone: Start: 05-28-2016 Lipid panel Lipid Screening [facility] Start: 02-09-2016 Procedure Education Eprescribe d prescriptions [...] ign respnse gamma interferon Quantiferron gold test (93196) [facility] Work Phone: Start: 10-03-2015 Procedure Education Eprescribe d prescriptions (G8553) [facility] Work Phone: Start: 08-29-2015 Procedure Education Eprescribe d prescriptions (G8553) [facility] Work Phone: Start: 08-29-2015 Troponin I.cardiac [Mass/Vol] ASSAY, TROPONIN, QUANTITATIVE (aka Troponin I) (64711) [facility] Work Phone: Start: 08-29-2015 TSH Qn TSH (88450) [facility] Work Phone: Start: 08-29-2015 Blood count complete auto&auto difrntl wbc CBC W/AUTO DIFF WBC (36469) [facility] Work Phone: Start: 08-29-2015 Comprehensive metabo lic panel METABOLIC PANEL, COMPREHENSIVE (47806) [facility] Work Phone: Start: 07-18-2015 Procedure Education Eprescribe d prescriptions (G8553) [facility] Work Phone: Start: 07-18-2015 Culture bacterial quanttative colony count urine URINE JOVANNY CULTURE-STONE COL COUNT (20838) [facility] Work Phone: Start: 07-01-2015 Provider Instruction s for Treatment [facility] Work Phone: Start: 06-17-2015 Procedure Education Eprescribe d prescriptions (G8553) [facility] Work Phone: Start: 06-17-2015 Provider Instruction s for Treatment [facility] Work Phone: Start: 06-17-2015 Cytp cerv/vag auto t hin layer prep mnl screen Thin prep Pap (51851) (no STD testing) [facility] Work Phone: Start: 2015 Shingrix Vaccine (1 of 2) Shingrix Vaccine (1 of 2) [facility] Start: 05-28-2014 Diabetes Screening Diabetes Screenin g [facility] Start: 12-30-2013 Provider Instruction s for Treatment [...] Free T4 [Mass/Vol] T4, FREE (T HYROXINE) (47942) [facility] Work Phone: Start: 08-07-2011 Free T3 [Mass/Vol] T3, FREE (TRIDOTHYRONINE) (38933) [facility] Work Phone: Start: 08-07-2011 TSH Qn TSH (85088) [facility] Work Phone: Start: 05-24-2011 Provider Instruction s for Treatment [facility] Work Phone: Start: 05-14-2011 Culture bacterial quanttative colony count urine URINE JOVANNY CULTURE-STONE COL COUNT (64036) [facility] Work Phone: Start: 2010 Screening for malign ant neoplasm of colon [facility] Start: 11-16-2009 Provider Instruction s for Treatment [facility] Work Phone: Start: 11-16-2009 TSH Qn TSH (14020) [facility] Work Phone: Start: 10-17-2009 Provider Instruction s for Treatment FOLLOW UP - MAKE APPT AFTER DIAGNOSTIC TESTS [facility] Work Phone: Start: 10-17-2009 Blood count complete automated CBC (AUTO) (94912) [facility] Work Phone: Start: 12-17-2007 Provider Instruction s for Treatment exercises [facility] Work Phone: Start: 03-17-2007 Provider Instruction s for Treatment [facility] Work Phone: Start: 2005 Screening for malign ant neoplasm of breast Mammogram Screening [facility] Start: 1984 Hepatitis B Vaccine (1 of 3 - 19+ 3-dose series) Hepatitis B Vaccine (1 of 3 - 19+ 3-dose series) [facility] Start: 1984 Urine microalbumin profile DTaP,Tdap,Td Vaccine (1 - Tdap) [facility] Start: 1983 Anxiety Screening Anxiety Screening [facility] Start: 1983 Depression Screening Depression Scre ening [facility] Start: 1983 Hepatitis C screening Hepatitis C Sc reening [facility] Start: 1983 HIV screening HIV Screening [facility] Blood chemistry [facility] CBC W Auto Different ial panel - Blood [facility] Work Phone: Colonoscopy [facility] CT Abdomen and Pelvi s W contrast IV [facility] Hemoglobin A1c/Hemoglobin.total in Blood [facility] Work Phone: Lipid 1996 panel - Serum or Plasma [facility] Work Phone: MG Breast - bilatera l Screening [facility] End: 04-10-2025 MR Knee - left WO contrast MRI KNEE WO IVCON LEFT Radiology Routine Other closed fracture of shaft of left fibula, initial encounter 1 Occurrences starting 03/11/2024 until 04/10/2025 [facility] Work Phone: Comment on above: 1 Occurrences starti ng 03/11/2024 until 04/10/2025 Patient Education ED Chest Pain, Uncertain Cause [facility] Work Phone: Patient referral [facility] Work Phone: End: 05-22-2025 XR Ankle - left AP and Lateral and oblique XR ANKLE GENERAL 3V AP/LAT/OBL LEFT Radiology Routine Closed fracture of shaft of left fibula with routine healing, unspecified fracture morphology, subsequent encounter Other closed fracture of shaft of left fibula, initial encounter 1 Occurrences starting 04/22/2024 until 05/22/2025 [facility] Comment on above: 1 Occurrences starti ng 04/22/2024 until 05/22/2025 XR Ankle - left AP a nd Lateral and oblique XR ANKLE GENERAL 3V AP/LAT/OBL LEFT Radiology Routine Closed fracture of shaft of left fibula with routine healing, unspecified fracture morphology, subsequent encounter Other closed fracture of shaft of left fibula, initial encounter 04/22/2024 12:19 PM EDT [facility] End: 04-08-2025 XR Ankle - left Single view XR ANKLE 1V LEFT Radiology Routine Other closed fracture of shaft of left fibula, initial encounter 1 Occurrences starting 03/09/2024 until 04/08/2025 [facility] Work Phone: Comment on above: 1 Occurrences starti ng 03/09/2024 until 04/08/2025 XR Shoulder GE 2 Views [facility] Work Phone: End: 05-22-2025 XR Tibia and Fibula - left AP and Lateral [facility] Work Phone: Comment on above: 1 Occurrences starti ng 04/22/2024 until 05/22/2025 XR Tibia and Fibula - left AP and Lateral XR TIBIA FIBULA 2V AP/LAT LEFT Radiology Routine Closed fracture of shaft of left fibula with routine healing, unspecified fracture morphology, subsequent encounter 04/22/2024 12:19 PM EDT [facility] Work Phone: Comprehensive [...] Immunizations Immunization Date Immunization Notes Care Provider [facility] 09-02-2024 Seasonal trivalent influenza vaccine, adjuvanted, preservative free Dr. Naomie Martini MD Work Phone: [facility] 07-17-2022 influenza, injectable, quadrivalent, preservative free Dr. Naomie Martini MD Work Phone: [facility] 07-17-2022 influenza, seasonal, injectable Dr. Naomie Martini Work Phone: [facility] 07-17-2022 influenza virus vaccine, unspecified formulation Hanna COFFMAN Work Phone: [facility] 10-15-2021 Covid (Pfizer) Dr. Naomie Martini MD Work Phone: [facility] 09-24-2021 Covid (Pfizer) Dr. Naomie Matrini MD Work Phone: [facility] 06-21-2020 influenza, injectable, quadrivalent, preservative free Dr. Naomie Martini MD Work Phone: [facility] 06-21-2020 influenza, seasonal, injectable Dr. Naomie Martini Work Phone: [facility] 06-21-2020 influenza, seasonal, injectable, preservative free Dr. Naomie Martini MD Work Phone: [facility] 07-14-2019 influenza, injectable, quadrivalent, preservative free Dr. Naomie Martini MD Work Phone: [facility] 07-14-2019 influenza, seasonal, injectable Dr. Naomie Martini Work Phone: [facility] 06-23-2019 influenza, injectable, quadrivalent, preservative free Dr. Naomie Martini MD Work Phone: [facility] 06-23-2019 influenza, seasonal, injectable Noelle Bowden [facility] Work Phone: 06-20-2018 influenza, injectable, quadrivalent, preservative free Dr. Naomie Martini MD Work Phone: [facility] 06-20-2018 influenza, seasonal, injectable Dr. Naomie Martini Work Phone: [facility] 06-19-2017 influenza, injectable, quadrivalent, preservative free Dr. Naomie Martini MD Work Phone: [facility] 06-19-2017 influenza, seasonal, injectable Dr. Naomie Martini Work Phone: [facility] 06-22-2016 influenza, injectable, quadrivalent, preservative free Dr. Naomie Martini MD Work Phone: [facility] 06-22-2016 influenza, seasonal, injectable Dr. Naomie Martini Work Phone: [facility] 06-22-2015 influenza, injectable, quadrivalent, preservative free Dr. Naomie Martini MD Work Phone: [facility] 06-22-2015 influenza, seasonal, injectable Dr. Naomie Martini Work Phone: [facility] 06-23-2014 influenza, injectable, quadrivalent, preservative free Dr. Naomie Martini MD Work Phone: [facility] 06-23-2014 influenza, seasonal, injectable Dr. Naomie Martini Work Phone: [facility] 08-17-[address] Naomie Martini Work Phone: [facility] 07-27-2009 novel [id number], preservative-free, injectable Dr. Naomie Martini MD Work Phone: [facility] Payers Date Payer Category Payer Self-pay [id number] 2022 Unknown 2020 Unknown [id number] 2015 Unknown [id number] 1965 Unknown [id number] 2.16.8 [id number] 1965 Unknown [id number] 2.16.8 [id number] Unknown [id number] 2.16.8 [id number] Unknown [id number] 2.16.8 [id number] Unknown [id number] 2.16.8 40.1.997540.3.579.2.462 Unknown [id number] 2.16.8 40.1.772111.3.579.2.462 Unknown [id number] 2.16.8 40.1.616286.3.579.2.462 Unknown [id number] 2.16.8 40.1.712887.3.579.2.462 Unknown [id number] 2.16.8 40.1.180956.3.579.2.462 Unknown [id number] 2.16.8 40.1.901950.3.579.2.462 Unknown [id number] 2.16.8 40.1.409578.3.579.2.462 Unknown [id number] 2.16.8 [id number] Unknown [id number] 2.16.8 40.1.403618.3.579.2.462 Unknown [id number] 2.16.8 40.1.982765.3.579.2.462 Unknown [id number] 2.16.8 [id number] Unknown [id number] 2.16.8 [id number] Unknown [id number] 2.16.8 [id number] Unknown [id number] 2.16.8 [id number] Social History Date Type Detail Facility Start: 03-07-2024 End: 03-11-2024 Alcohol Use Alcohol Use [facility] Work Phone: Comment on above: Occasional alcohol u se Inactive 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 Tobacco use: Tobacco use: [facility] Work Phone: Tobacco Use: Tobacco Use: [facility] Work Phone: Comment on above: updated 05-24-11 Start: 12-19-2021 End: 04-24-2023 Tobacco smoking status [facility] Unknown if ever smoked [facility] Start: 11-26-2020 None [facility] Start: 11-26-2020 Cigarettes [facility] Start: 1965 Sex Assigned At Female [facility] Start: 05-27-2018 Spouse/ Signif icant Other [facility] Tobacco smoking status No Smoking Status Entered [facility] Start: 03-07-2024 End: 04-16-2025 Tobacco smoking status NHIS Ex-smoker [facility] End: 01-22-2024 History of tobacco use Current smoker [facility] Start: 03-07-2024 Tobacco use and exposure Former smokeless tobacco user [facility] End: 08-06-2011 History of tobacco use User of smokeless tobacco [facility] Start: 03-07-2024 End: 03-11-2024 Alcohol intake Current drinker of alcohol (finding) [facility] Start: 03-07-2024 End: 03-11-2024 Tobacco use panel [facility] Start: 08-28-2011 Alcohol Comment [facility] Start: 1965 Sex Assigned At Not on file [facility] End: 01-22-2024 History of tobacco use Cigarette Smoker [facility] History of tobacco use Passive smoker [facility] Start: 03-11-2024 Tobacco use and exposure Smokeless tobacco non-user [facility] National Score (1-100), lower number is lower risk 54 [facility] Start: 01-05-2025 Sex Female (finding) [facility] NEGATED: Highlighted row [facility] Goals Date Patient Goal Desired Activity [...] and needs external support after 3-4 seconds. [facility] 02-28-2024 Functional Status Independent [facility] 02-28-2024 Functional Status Standard Safet y ID band on, Call device within reach, Bed in low position, Wheels locked, Upper/Half-Length side-rails up, personal items within reach, Bedside Cart Locked, Visitor at bedside [facility] Mental Status Date Assessment Result Facility 04-16-2025 Cognitive function Voice/Name [facility] Work Phone: 02-28-2024 Mental Status Orientation Oriented x 4 [facility] 02-28-[address] Mental Status [facility] 04-17-2023 Cognitive function Voice/Name [facility] Work Phone: Clinical Notes 02-28-2024 to 04-16-2025 Note Date & Type Note Facility 04-16-2025 Radiology Diagnostic study note [facility] Imaging Services [address] [place], [place] [address] Chest 1 View (Portable) MR#: [id number] Acct: [id number] Name: FELICITY VILLA Rep #: [id number] : 1965 F 59 From: Greg Gracia MD PCP: Dr. Naomie Martini MD Status: R EG ER Study:Chest 1 View (Portable) Date of Exam: 04/16/25 Exam# [id number] Ordering Dr: Angel Angel DO PROCEDURE: CHEST 1 VIEW (PORTABLE) 04/16/2025 REASON FOR EXAM: CHEST PAIN TECHNIQUE: Frontal view of the chest. COMPARISON: CT chest 02/25/2024 FINDINGS: Lungs/Pleura: Clear. No pneumothorax or pleural effusion. Heart/Mediastinum: Normal in size. Bones/Soft tissues: No significant abnormality. RAD/Chest 1 View (Portable) IMPRESSION: No acute cardiopulmonary disease. Reading Location: [id number] CC: Dr. Naomie Martini MD; Dr. Angel Angel DO ~ [employer] Penc[employer] Repairer: Signed [facility] 12-23-2024 Evaluation note Diagnosis Onset Date Resolution Postmenopausal bleeding acute A pril 2024 8:38am Generalized anxiety disorder chronic December 23, 2024 8:38am Hyperlipidemia chronic December 23, 2024 8:38am Hypertension chronic December 23, 2 025 8:38am Vaginal atrophy chronic December 8:38am [facility] Work Phone: 1(331) 881-118911-12-2024 [facility] Medical Records Department [address] [place] [address] History Physical Exam 08/04/24 1155 MR#: [id number] Acct: [id number] Name: FELICITY VILLA Rep #: [id number] : 1965 59 From: Lyn Slaughter DO PCP: Dr. Naomie Martini MD Status:[facility] Location: [place] [address] History and Physical Date of Admission: 08/04/24 Intake Vital Signs 06/17/2408:01 07/13/2408:21 07/13/2408:23 Height 5 ft 3 in 5 ft 3 in 5 ft 3 in Weight: 137 lb 139 lb 4 oz BMI 24.3 24.6 BP 116/76 132/78 H Intake Visit Reasons: HYSTEROSCOPY D C CONSULT Thumb Sewer Required: No Is patient in pain?: No [...] the risks, benefits, and a (more content notincluded)...[facility]07-31-2024 NoteHNO ID: [id number] Author: FRANCISCA RIVERA MD Service: ? Author [...] resident's note for further details. Francisca Rivera, [facility]07-31-2024 History of Present illness Narrative* Francisca Rivera [...] details. Francisca Rivera MD [facility] Tele[facility] encounter Note * Telephone Encounter - Maribel Mae - 03/31/2024 9:52 AM EDT Patient called because she completed her MRI on 03/25/24 and would like a call back about the results. # [phone] Assessment and Plan: Patient is a 58 year old female Other closed fracture of shaft of left fibula, initial encounter [place] stress view show maintained ankle mortise and [...] PA. See PA's note for further details. [facility]07-09-2024 Miscellaneous Notes* Telephone Encounter - Maribel Mae - 03/31/2024 9:52 AM EDT Patient called because she completed her MRI on 03/25/24 and would like a call back about the results. # [phone] Assessment and Plan: Patient is a 58 year old female Other closed fracture of shaft of left fibula, initial encounter [place] stress view show maintained ankle mortise and [...] note for further details. [facility] History of Present illness Narrative* Nani Evans [...] PATIENT PRESENTS WITH AN IMPLANTABLE OR ATTACHED PARTNER CCO: No RADIOLOGY DEPARTMENT: MR; Exam(s) Completed: Lower MSK: Knee, left PERIPHERAL IV DATA: Not applicable SIGNED BY: DEBRA Schofield) March 25, 2024 11:25 AM [facility]24 NoteHNO ID: [id number] Author: NANI EVANS RT(R) Service: ? Author [...] PATIENT PRESENTS WITH AN IMPLANTABLE OR ATTACHED PARTNER CCO: No RADIOLOGY DEPARTMENT: MR; Exam(s) Completed: Lower MSK: Knee, left PERIPHERAL IV DATA: Not applicable SIGNED BY: RT Kanwal(Isma) March 25, 2024 11:25 [facility]06-19-2024 History of Present illness Narrative* Francisca Rivera [...] Height as of 08/28/11: 161.3 cm (5' 3.5). Weight as of 09/04/11: 54.4 kg (120 [...] of shaft of left fibula, initial encounter [place] stress view show maintained ankle mortise and [...] 03/11/2024 Time: 10:43 AM [facility] NoteHNO ID: [id number] Author: FRANCISCA RIVERA MD Service: ? Author [...] Height as of 08/28/11: 161.3 cm (5' 3.5). Weight as of 09/04/11: 54.4 kg (120 [...] of shaft of left fibula, initial encounter [place] stress view show maintained ankle mortise and [...] Francisca Rivera MD Date: 03/11/2024 Time: 10:43 [facility]06-15-2024 History of Present illness Narrative* Ruby Aviles [...] PATIENT PRESENTS WITH AN IMPLANTABLE OR ATTACHED PARTNER CCO: No RADIOLOGY DEPARTMENT: General X-ray: Exam(s) Completed: Lower Extremity X- Ray(s): Tibia Fibula, Left PERIPHERAL IV DATA: Not applicable SIGNED BY: DEBRA Still) March 07, 2024 9:56 AM documented in [facility]06[facility]24 NoteHNO ID: [id number] Author: RUBY AVILES RT (R) Service: Radiology Author Type: Technologist Type: Progress [...] PATIENT PRESENTS WITH AN IMPLANTABLE OR ATTACHED PARTNER CCO: No RADIOLOGY DEPARTMENT: General X-ray: Exam(s) Completed: Lower Extremity X-Ray(s): Tibia Fibula, Left PERIPHERAL IV DATA: Not applicable SIGNED BY: RT Cheko(R) March 07, 2024 9:56 [facility]06-15-2024 NoteHNO ID: [id number] Author: HANNA CUELLO PA Service: ? Author Type: Physician Bill Poster Installer Type: Progress Notes Filed: 03/07/2024 11:19 Note Text: This note was created using [employer]. Subjective Felicity Villa is a 58 year [...] to make long-leg splint. (more content not included)...[facility]06-15-2024 History of Present illness Narrative* Hanna Cuello PA - 03/07/2024 9:54 AM EDT Images from the original note were not included. This note was created using [employer]. Subjective Felicity Villa is a 58 year [...] ER evaluation. MEGHNA Milton documented [facility] Hospital Discharge instructions Patient Education 02/28/2024 22:58:06 [...] or swelling over your back or spine [id number] [employer] [place] [address]. All rights reserved. This information is not intended as a substitute for professional medical care. Always follow yourhealthcare professional's instructions. Follow Up Care 02/28/2024 21:52:36 With:NAOMIE MARTINI MD Address: [address] [place] [address] [place] [address] [phone] When:2-4 days [facility] 06-07-2024 Note Discharge Instructions Thank you for allowing [facility] to assist you with your healthcare needs. The following is importantdischarge information regarding your hospital visit. Diagnosis from Today's Visit Sciatica of left side What to Do Next Instructions from Your Care Team No qualifying data available. Post Acute Orders No qualifying data available. You Need to Schedule the Following Appointments Follow Up with NAOMIE MARTINI MD When:Within 2-4 days Where:[address] [place] [address] [place] [address] [phone] Allergies No Known Medication Allergies Medications Please ask your primary doctor or pharmacist before taking any other medication not listed, including over the counter drugs, herbal medications, vitamins and or supplements as they may interact withyour home medications. What How Much When Why Instructions Last Dose New acetaminophen-hydrocodone ([place] 325- 5 mg oral tablet) 1 tab(s) [...] acetaminophen and hydrocodone (a SEET a MIN ross fen and aleida PETER done) Verdrocet What [...] may report side effects to FDA at 9-801-COO-4260. What other drugs will affect acetaminophen and [...] affect acetaminophen and hydrocodone, including prescription and zgrb-mtl-clqeexz medicines, vitamins, and herbal products. Not all [...] to ensure that the information provided by [employer]. ('[employer]') is accurate, up-to-date, and complete, but no guarantee is made to that effect. Drug information contained herein may be time sensitive. [employer] information has been compiled for use by healthcare practitioners and consumers in the [place] and therefore [employer] does not warrant that uses outside of the [place] are appropriate, unless specifically indicated otherwise. [employer] drug information does not endorse drugs, diagnose patients or recommend therapy. [employer] drug information isan informational resource designed to [...] effective or appropriate for any given patient. [facility] does not assume any responsibility for any aspect of healthcare administered with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
--- OUTSIDE RECORDS SUMMARY | 2025-05-03 10:47 | XMS RPT_ITS | CCD ---
Author Organization [facility] Care Team Providers Care Publishing Agent Name Role Phone Noelle Bowden Unavailable Fortino Irwin Unavailable [phone] Ger Porras Unavailable Physical Therapy, [facility] Unavailable Carmen Haque Unavailable Unavailable Nani Calvin Unavailable Unavailable Unavailable Unavailable Renee Barba Unavailable Unavailable Ophelia Mayo Unavailable Unavailable Dr. Naomie Martini Primary Care Provider [phone] Dr. Naomie Martini Attending Provider [phone] Dr. Naomie Martini Referring Provider [phone] María Elena REGIONAL TELECOMMUNICATIONS SPECIALIST, REGIONAL TELECOMMUNICATIONS SPECIALIST-C Deedee Attending Provider Dr. Naomie Martini Primary Care Provider [phone] Dr. Naomie Martini Attending Provider [phone] Dr. Naomie Martini Referring Provider [phone] Dr. Naomie Martini Primary Care Provider [phone] Dr. Naomie Martini Attending Provider [phone] Dr. Naomie Martini Referring Provider [phone] María Elena REGIONAL TELECOMMUNICATIONS SPECIALIST, REGIONAL TELECOMMUNICATIONS SPECIALIST-C Deedee Attending Provider Dr. Naomie Martini Primary Care Provider [phone] María Elena REGIONAL TELECOMMUNICATIONS SPECIALIST, REGIONAL TELECOMMUNICATIONS SPECIALIST-C Deedee Referring Provider Dr. Naomie Martini Attending Provider [phone] Dr. Naomie Martini Referring Provider [phone] Dr. Marly Dennis Attending Provider Dr. Marly Dennis Other Provider MEGHNA Ho Attending Provider LIANET PÉREZ, NAOMIE B Primary [...] Provider Dr. Angel Angel DO Emergency Provider [phone] Oleghe, Efewongbe Primary Care Unavailable Angel Angel [...] every six hours as needed for pain [place] 325- 5 mg oral tablet Dose = [...] inulin 200 mg / lactobacillus rhamnosus gg [id number] unt oral capsule (4 sources) Start: 04-19-2011 [...] 13-Jun-2018 Active Comments: Medication taken as needed. [id number] Start: 09-28-2017 End: 04-03-2022 take 0.5 mg by mouth once daily as needed for anxiety Lorazepam (Ativan) 1 mg tablet Discontinued 0.5 mg PO DAILY NEEDED as needed for Anxiety May 26, 2021 9:21am April 03, 2022 8:35am Comment on above: Medication taken as needed. [id number] meloxicam 15 mg oral tablet (9 sources) [...] 025 Trop T High Sen Normal <=14 [facility] Comment on above: Result Comment: Canc elled via OM: Order cancelled - Patient discharged Performed By: #### L 499.0043 #### [facility] Laboratory [address] [place], [address] 12 Lead EKGon 04-16-2025 12 Lead EKG [facility] Cardiovascular Services [address] [place] [address] 12 Lead EKG 04/16/25 1937 MR#: [id number] Acct: [id number] Name: FELICITY VILLA Rep #: [id number] : 1965 59 From: Boubacar Naik MD [...] ECG Confirmed by BOUBACAR NAIK MD ([id number]), video tape editor SHARON MONCADA ([id number]) on 04/19/2025 9:01:01 AM Referred By: Confirmed By: BOUBACAR NAIK MD 04/19/25 0901 Date Boubacar Naik MD CC: Dr. Naomie Martini MD; Dr. Angel Angel DO Signed Normal [facility] Absolute lymphocyte countOrd ered By: Angel Angel on 04-16-2025 Lymphocytes Auto (Unsp spec) [#/Vol] 2.47 10*3/uL 0.83-4.51 [facility] Absolute neutrophil countOrd ered By: Angel Angel on 04-16-2025 Neutrophils (Bld) [#/Vol] 4.4 10*3/uL 2.0-7.7 [facility] Anion gap in Serum or Plasma Ordered By: Angel Angel on 04-16-2025 Anion gap [Moles/Vol] 12 mmol/L 5-15 [facility] Automated lymphocyte count a s percentage of total leukocytesOrdered By: Angel Angel on 04-16-2025 Lymphocytes/100 WBC Auto (Unsp spec) 31.1 % 19-41 [facility] BUN/creatinine ratioOrdered By: Angel Angel on 04-16-2025 Urea nitrogen/Creatinine [Mass ratio] 25.5 mg/mg High 10- [facility] Basic Metabolic Profile (BMP )on 04-16-2025 BUN/CRE 25.5 RATIO High - [facility] Comment on above: Performed By: #### L 500.2500, L501.4021, L100.0100 ####[facility] [address] [place], [address] Calcium [Mass/Vol] 10.0 mg/dL Normal 7.6-11.0 [facility] Comment on above: Performed By: #### L 500.2500, L501.4021, L100.0100 ####[facility] [address] [place], [address] Chloride [Moles/Vol] 98 mmol/L Normal 98-108 [facility] Comment on above: Performed By: #### L 500.2500, L501.4021, L100.0100 ####[facility] [address] [place], [address] CO2 [Moles/Vol] 26.7 mmol/L Normal 21.0-32.0 [facility] Comment on above: Performed By: #### L 500.2500, L501.4021, L100.0100 ####[facility] [address] [place], [address] Creatinine [Mass/Vol] 0.70 mg/dL Normal 0.70-1.20 [facility] Comment on above: Performed By: #### L 500.2500, L501.4021, L100.0100 ####[facility] [address] [place], [address] ECRCL 74.72 ml/min Normal 50-250 [facility] Comment on above: Performed By: #### L 500.2500, L501.4021, L100.0100 ####[facility] [address] [place], [address] GAP 12 Normal 5-15 [facility] Comment on above: Performed By: #### L 500.2500, L501.4021, L100.0100 ####[facility] [address] [place], [address] GFR/1.73 sq M.predicted among non-blacks MDRD (S/P/Bld) [Vol rate/Area] 100 mL/min/{1.73_m2} Normal >60 [facility] Comment on above: Result Comment: mL/m in/1.73m2 CKD-EPI Creatinine Equation (2020) Performed By: #### L 500.2500, L501.4021, L100.0100 ####[facility] [address] [place], [address] Glucose [Mass/Vol] 106 mg/dL High 70-99 [facility] Comment on above: Performed By: #### L 500.2500, L501.4021, L100.0100 ####[facility] [address] [place], [address] Potassium [Moles/Vol] 3.7 mmol/L Normal 3.3-5.1 [facility] Comment on above: Performed By: #### L 500.2500, L501.4021, L100.0100 ####[facility] [address] [place], [address] Sodium [Moles/Vol] 137 mmol/L Normal 133-145 [facility] Comment on above: Performed By: #### L 500.2500, L501.4021, L100.0100 ####[facility] [address] [place], [address] Urea nitrogen [Mass/Vol] 18 mg/dL Normal 4-19 [facility] Comment on above: Performed By: #### L 500.2500, L501.4021, L100.0100 ####[facility] [address] [place], [address] Basophil percentageOrdered B y: Angel Angel on 04-16-2025 Basophils/100 WBC (Bld) 0.5 % 0-1 [facility] CBC W/Diff, Automatedon 03-24 Absolute Lymph 2.47 X10 3/uL Normal 0.83-4.51 [facility] Comment on above: Performed By: #### L 500.2500, L501.4021, L100.0100 ####[facility] [address] [place], [address] Absolute Neut 4.4 X10 3/uL Normal 2.0-7.7 [facility] Comment on above: Performed By: #### L 500.2500, L501.4021, L100.0100 ####[facility] [address] [place], [address] Basophils/100 WBC (Bld) 0.5 % Normal 0-1 [facility] Comment on above: Performed By: #### L 500.2500, L501.4021, L100.0100 ####[facility] [address] [place], [address] Eosinophils/100 WBC (Bld) 4.2 % Normal 0-5 [facility] Comment on above: Performed By: #### L 500.2500, L501.4021, L100.0100 ####[facility] [address] [place], [address] Erythrocyte distribution width (RBC) [Ratio] 15.5 % High 11.6-14.6 [facility] Comment on above: Performed By: #### L 500.2500, L501.4021, L100.0100 ####[facility] [address] [place], [address] Hematocrit (Bld) [Volume fraction] 39.0 % Normal 37-47 [facility] Comment on above: Performed By: #### L 500.2500, L501.4021, L100.0100 ####[facility] [address] [place], [address] Hemoglobin (Bld) [Mass/Vol] 14.2 g/dL Normal 12.0-15.0 [facility] Comment on above: Performed By: #### L 500.2500, L501.4021, L100.0100 ####[facility] [address] [place], [address] IG% 0.300 Normal 0.0-0.9 [facility] Comment on above: Result Comment: IG% - Immature Granulocytes (promyelocytes, myelocytes and metamyelocytes) > 1% indicates that a LEFT SHIFT is Present. Performed By: #### L 500.2500, L501.4021, L100.0100 ####[facility] [address] [place], [address] Lymphocytes/100 WBC (Bld) 31.1 % Normal 19-41 [facility] Comment on above: Performed By: #### L 500.2500, L501.4021, L100.0100 ####[facility] [address] [place], [address] MCH (RBC) [Entitic mass] 28.6 pg Normal 27.0-32.0 [facility] Comment on above: Performed By: #### L 500.2500, L501.4021, L100.0100 ####[facility] [address] [place], [address] MCHC (RBC) [Mass/Vol] 36.4 g/dL High 32-36 [facility] Comment on above: Performed By: #### L 500.2500, L501.4021, L100.0100 ####[facility] [address] [place], [address] MCV (RBC) [Entitic vol] 78.5 fL Low 81-99 [facility] Comment on above: Performed By: #### L 500.2500, L501.4021, L100.0100 ####[facility] [address] [place], [address] Monocytes/100 WBC (Bld) 8.6 % Normal 0-10 [facility] Comment on above: Performed By: #### L 500.2500, L501.4021, L100.0100 ####[facility] [address] [place], [address] Neutrophils/100 WBC (Bld) 55.3 % Normal 47-70 [facility] Comment on above: Performed By: #### L 500.2500, L501.4021, L100.0100 ####[facility] [address] [place], [address] Nucleated RBC (Bld) [#/Vol] 0 10*3/uL Normal 0-5 [facility] Comment on above: Performed By: #### L 500.2500, L501.4021, L100.0100 ####[facility] [address] [place], [address] Platelet mean volume (Bld) [Entitic vol] 11.9 fL Normal 6.2-12.0 [facility] Comment on above: Performed By: #### L 500.2500, L501.4021, L100.0100 ####[facility] [address] [place], [address] Platelets (Bld) [#/Vol] 218 10*3/uL Normal 150-450 [facility] Comment on above: Performed By: #### L 500.2500, L501.4021, L100.0100 ####[facility] [address] [place], [address] RBC (Bld) [#/Vol] 4.97 10*6/uL Normal 4.2-5.4 [facility] Comment on above: Performed By: #### L 500.2500, L501.4021, L100.0100 ####[facility] [address] [place], [address] RDW SD 43.7 fl Normal 35.1-43.9 [facility] Comment on above: Performed By: #### L 500.2500, L501.4021, L100.0100 ####[facility] [address] [place], [address] WBC (Bld) [#/Vol] 7.9 10*3/uL Normal 4.4-11.0 [facility] Comment on above: Performed By: #### L 500.2500, L501.4021, L100.0100 ####[facility] [address] [place], [address] Carbon dioxide, total [Moles /volume] in Central venous bloodOrdered By: Angel Angel on 04-16-2025 CO2 [Moles/Vol] 26.7 mmol/L 21.0-32.0 [facility] Chest 1 View (Portable)on Chest 1 View (Portable) [facility] Imaging Services [address] [place] [address] Chest 1 View (Portable) MR#: [id number] Acct: [id number] Name: ALLENFELICITY Rep #: [id number] : 1965 F 59 From: Rodney Gracia MD PCP: Dr. Naomie Martini MD Status: REG ER Study: Chest 1 View (Portable) Date of Exam: 04/16/25 Exam# [id number] Ordering Dr: Angel Angel DO PROCEDURE: CHEST 1 VIEW (PORTABLE) 04/16/2025 REASON FOR EXAM: CHEST PAIN TECHNIQUE: Frontal view of the chest. COMPARISON: CT chest 02/25/2024 FINDINGS: Lungs/Pleura: Clear. No pneumothorax or pleural effusion. Heart/Mediastinum: Normal in size. Bones/Soft tissues: No significant abnormality. RAD/Chest 1 View (Portable) IMPRESSION: No acute cardiopulmonary disease. Reading Location: [facility] CC: Dr. Naomie Martini MD; Dr. Angel Angel DO Needle Loom Weaver: Signed Normal [facility] Chloride assayOrdered By: Dylan Angel on 04-16-2025 Chloride [Moles/Vol] 98 mmol/L 98-108 [facility] Emergency Department Summary on 04-16-2025 Emergency Department Summary [facility] Medical Records Department [address] [place] [address] Emergency Department Summary 04/16/25 MR#: [id number] Acct: [id number] Name: FELICITY VILLA Rep #: [id number] : 1965 59 From: Angel Angel DO [...] or he (more content not included)... Normal [facility] Eosinophil percentageOrdered By: Angel Angel on 04-16-2025 Eosinophils/100 WBC (Bld) 4.2 % 0-5 [facility] Erythrocyte distribution wid th ratioOrdered By: Angel Angel on 04-16-2025 Erythrocyte distribution width (RBC) [Ratio] 15.5 % High 11.6-14.6 [facility] Erythrocyte distribution wid th standard deviationOrdered By: Angel Angel on 04-16-2025 Erythrocyte distribution width (RBC) [Ratio] 43.7 fl 35.1-43.9 [facility] Glomerular filtration rate ( GFR) estimation/1.73 sq m using serum, plasma, or whole bOrdered By: Angel Angel on 04-16-2025 GFR/1.73 sq M.predicted among non-blacks MDRD (S/P/Bld) [Vol rate/Area] 100 mL/min/{1.73_m2} >60 [facility] Comment on above: mL/min/1.73m2 CKD-EP I Creatinine Equation (2020) Hematocrit Auto (Bld) [Volum e fraction]Ordered By: Angel Angel on 04-16-2025 Hematocrit (Bld) [Volume fraction] 39.0 % 37-47 [facility] Hemoglobin measurementOrdere d By: Angel Angel on 04-16-2025 Hemoglobin (Bld) [Mass/Vol] 14.2 g/dL 12.0-15.0 [facility] Immature granulocytes/100 WB C Auto (Bld)Ordered By: Angel Angel on 04-16-2025 Immature granulocytes/100 WBC (Bld) 0.300 % 0.0-0.9 [facility] Comment on above: IG% - Immature Granu locytes (promyelocytes, myelocytes and metamyelocytes) > 1% indicates that a LEFT SHIFT is Present. L501.4021on 04-16-2025 Trop T High Sen < 6 Normal <=14 [facility] Comment on above: Performed By: #### L 500.2500, L501.4021, L100.0100 ####[facility] [address] [place], [place], [id number] MCV (mean corpuscular volume ) determinationOrdered By: Angel Angel on 04-16-2025 MCV (RBC) [Entitic vol] 78.5 fL Low 81-99 [facility] Mean corpuscular hemoglobin (MCH) determinationOrdered By: Angel Angel on 04-16-2025 MCH (RBC) [Entitic mass] 28.6 pg 27.0-32.0 [facility] Mean corpuscular hemoglobin concentration (MCHC) determinationOrdered By: Angel Angel on 04-16-2025 MCHC (RBC) [Mass/Vol] 36.4 g/dL High 32-36 [facility] Mean platelet volume determi nationOrdered By: Angel Angel on 04-16-2025 Platelet mean volume (Bld) [Entitic vol] 11.9 fL 6.2-12.0 [facility] Monocyte percentageOrdered B y: Angel Angel on 04-16-2025 Monocytes/100 WBC (Bld) 8.6 % 0-10 [facility] Neutrophil percentageOrdered By: Angel Angel on 04-16-2025 Neutrophils/100 WBC (Bld) 55.3 % 47-70 [facility] Nucleated red blood cell per centageOrdered By: Angel Angel on 04-16-2025 Nucleated RBC/100 WBC (Bld) [Ratio] 0 % 0-5 [facility] Platelet countOrdered By: Dylan Angel on 04-16-2025 Platelets (Bld) [#/Vol] 218 10*3/uL 150-450 [facility] Potassium measurement (mass/ volume)Ordered By: Angel Angel on 04-16-2025 Potassium (Unsp spec) [Mass/Vol] 3.7 mmol/L 3.3-5.1 [facility] RBC Auto (Bld) [#/Vol]Ordere d By: Angel Angel on 04-16-2025 RBC (Bld) [#/Vol] 4.97 10*6/uL 4.2-5.4 [facility] Serum creatinine measurement (mass/volume)Ordered By: Angel Angel on 04-16-2025 Creatinine [Mass/Vol] 0.70 mg/dL 0.70-1.20 [facility] Serum glucose measurement (m ass/volume)Ordered By: Angel Angel on 04-16-2025 Glucose [Mass/Vol] 106 mg/dL High 70-99 [facility] Serum or plasma calcium walter urement (mass/volume)Ordered By: Angel Angel on 04-16-2025 Calcium [Mass/Vol] 10.0 mg/dL 7.6-11.0 [facility] Serum or plasma urea nitroge n measurement (mass/volume)Ordered By: Angel Angel on 04-16-2025 Urea nitrogen [Mass/Vol] 18 mg/dL 4-19 [facility] Sodium levelOrdered By: Angel Angel on 04-16-2025 Sodium [Moles/Vol] 137 mmol/L 133-145 [facility] Troponin T HS 2 HRon 025 Trop T High Sen < 6 Normal <=14 [facility] Comment on above: Performed By: #### L 499.0042 #### [facility] Laboratory [address] [place], [place], [address] Troponin T.cardiac [Mass/vol ume] in Serum or Plasma by High sensitivity methodOrdered By: Angel Angel on 04-16-2025 Troponin T.cardiac High sensitivity method [Mass/Vol] < 6 ng/L <14 [facility] Troponin T.cardiac High sensitivity method [Mass/Vol] < 6 ng/L <14 [facility] White blood cell (WBC) count Ordered By: Angel Angel on 04-16-2025 WBC (Bld) [#/Vol] 7.9 10*3/uL 4.4-11.0 [facility] Urgent Care Visit Reporton 0 01-04-2025 Urgent Care Visit Report [facility] [address], [address] [place] [address] OFFICE VISIT Date of Service: 01/04/25 MR#: [id number] Acct: [id number] Name: FELICITY VILLA Rep #: [id number] : 1965 Provider: MEGHNA Whitt Age/Sex: 59/F Location: [facility] Status: Signed Intake Vital Signs 12/23/24 08:44 [...] like nasal sprays due to the congestion. [facility] Medical History Back pain Head ache [...] 12-30-2024 Anion gap [Moles/Vol] 10 mmol/L 02-04 [facility] BUN/creatinine ratioOrdered By: Naomie Martini on 12-30-2024 Urea nitrogen/Creatinine [Mass ratio] 21.6 mg/mg High 07-12 [facility] Bilirubin, totalOrdered By: Naomie Martini on 12-30-2024 Bilirubin [Mass/Vol] 0.53 mg/dL 0.00-1.30 [facility] Calculated very low density lipoprotein (VLDL) cholesterol measurementOrdered By: Naomie Martini on 12-30-2024 Calculated very low density lipoprotein (VLDL) cholesterol measurement 26 mg/dL - [facility] VLDL Cholesterol 26 mg/dL [facility] Carbon dioxide, total [Moles /volume] in Central venous bloodOrdered By: Naomie Martini on 12-30-2024 CO2 [Moles/Vol] 29.2 mmol/L 21.0-32.0 [facility] Chloride assayOrdered By: Dena Martini on 12-30-2024 Chloride [Moles/Vol] 99 mmol/L 98-108 [facility] Comprehensive Metabolic Prof ilon 12-30-2024 Albumin [Mass/Vol] 4.5 g/dL Normal 3.5-5.0 [facility] Comment on above: Performed By: #### L 500.4100, L500.4050 ####[facility] [address] [place], [address] Albumin/Globulin [Mass ratio] 1.7 {ratio} Normal 0.9-2.4 [facility] Comment on above: Performed By: #### L 500.4100, L500.4050 ####[facility] [address] [place], [address] ALK PHOS 72 U/L Normal 35-104 [facility] Comment on above: Performed By: #### L 500.4100, L500.4050 ####[facility] [address] [place], [address] ALT [Catalytic activity/Vol] 16 U/L Normal <=34 [facility] Comment on above: Performed By: #### L 500.4100, L500.4050 ####[facility] [address] [place], [address] AST [Catalytic activity/Vol] 17 U/L Normal <=31 [facility] Comment on above: Performed By: #### L 500.4100, L500.4050 ####[facility] [address] [place], [address] Bilirubin [Mass/Vol] 0.53 mg/dL Normal 0.00-1.30 [facility] Comment on above: Performed By: #### L 500.4100, L500.4050 ####[facility] [address] [place], [address] BUN/CRE 21.6 RATIO High 10-20 [facility] Comment on above: Performed By: #### L 500.4100, L500.4050 ####[facility] [address] [place], [address] Calcium [Mass/Vol] 10.3 mg/dL Normal 7.6-11.0 [facility] Comment on above: Performed By: #### L 500.4100, L500.4050 ####[facility] [address] [place], [address] Chloride [Moles/Vol] 99 mmol/L Normal 98-108 [facility] Comment on above: Performed By: #### L 500.4100, L500.4050 ####[facility] [address] [place], [address] CO2 [Moles/Vol] 29.2 mmol/L Normal 21.0-32.0 [facility] Comment on above: Performed By: #### L 500.4100, L500.4050 ####[facility] [address] [place], [address] Creatinine [Mass/Vol] 0.68 mg/dL Low 0.70-1.20 [facility] Comment on above: Performed By: #### L 500.4100, L500.4050 ####[facility] [address] [place], [address] GAP 10 Normal 5-15 [facility] Comment on above: Performed By: #### L 500.4100, L500.4050 ####[facility] [address] [place], [address] GFR/1.73 sq M.predicted among non-blacks MDRD (S/P/Bld) [Vol rate/Area] 100 mL/min/{1.73_m2} Normal >60 [facility] Comment on above: Result Comment: mL/m in/1.73m2 CKD-EPI Creatinine Equation (2020) Performed By: #### L 500.4100, L500.4050 ####[facility] [address] [place], [address] Globulin (S) [Mass/Vol] 2.6 g/dL Normal 2.2-4.2 [facility] Comment on above: Performed By: #### L 500.4100, L500.4050 ####[facility] [address] [place], [address] Glucose [Mass/Vol] 108 mg/dL High 70-99 [facility] Comment on above: Performed By: #### L 500.4100, L500.4050 ####[facility] [address] [place], [address] Potassium [Moles/Vol] 4.7 mmol/L Normal 3.3-5.1 [facility] Comment on above: Performed By: #### L 500.4100, L500.4050 ####[facility] [address] [place], [address] Sodium [Moles/Vol] 139 mmol/L Normal 133-145 [facility] Comment on above: Performed By: #### L 500.4100, L500.4050 ####[facility] [address] [place], [address] T PROT 7.1 g/dL Normal 5.9-8.4 [facility] Comment on above: Performed By: #### L 500.4100, L500.4050 ####[facility] [address] [place], [address] Urea nitrogen [Mass/Vol] 15 mg/dL Normal 4-19 [facility] Comment on above: Performed By: #### L 500.4100, L500.4050 ####[facility] [address] [place], [address] GFR/1.73 sq M.predicted sahil g non-blacks MDRD [...] MDRD (S/P/Bld) [Vol rate/Area] 100 mL/min/{1.73_m2} >60 [facility] Comment on above: mL/min/1.73m2 CKD-EP I Creatinine Equation (2020) LDL calc ser/plasOrdered By: Naomie Martini on 12-30-2024 Cholesterol in LDL [Mass/Vol] 159 mg/dL [facility] Comment on above: Hqakeairaj=774-400 m g/dL & Higher Pnje=883 mg/dL or greater LDL Cholesterol, Calculated 159 mg/dL [facility] Comment on above: Jkbtdlbryo=837-901 m g/dL & Higher Dasx=796 mg/dL or greater Laboratory - Chemistry and C hemistry - challengeOrdered By: Naomie Martini on 12-30-2024 AST [Catalytic activity/Vol] 17 U/L <32 [facility] Lipid Profileon 12-30-2024 CHOL:HDL 4.28 Normal [facility] Comment on above: Performed By: #### L 500.4100, L500.4050 ####[facility] [address] [place], [address] Cholesterol [Mass/Vol] 242 mg/dL High <=200 [facility] Comment on above: Result Comment: Chol esterol level, Desirable <200 mg/dL Borderline high cholesterol 200-239 mg/dL High cholesterol >=240 mg/dL Recommendations of the NCEP Adult Treatment Panel for the following risk-cutoff thresholds for the [place] population. Performed By: #### L 500.4100, L500.4050 ####[facility] [address] [place], [address] Cholesterol in HDL [Mass/Vol] 57 mg/dL Normal [...] L500.4050 ####[facility] [address] [place], [address] Cholesterol in LDL [Mass/Vol] 159 mg/dL Normal [facility] Comment on above: Result Comment: Bord lmkgpd=244-972 mg/dL Higher Tvqr=757 mg/dL or greater Performed By: #### L 500.4100, L500.4050 ####[facility] [address] [place], [address] Cholesterol in VLDL [Mass/Vol] 26 mg/dL Normal 5-40 [facility] Comment on above: Performed By: #### L 500.4100, L500.4050 ####[facility] [address] [place], [address] Triglyceride [Mass/Vol] 132 mg/dL Normal [facility] Comment on above: Result Comment: The drugs N-Acetylcysteine and Metamizole may falsely depress this assay. Normal range: <150 mg/dL Borderline High: 150-199 mg/dL High: 200-499 mg/dL Very High: >500 mg/dL Performed By: #### L 500.0460, L500.4050 ####[facility] [address] [place], [address] Potassium (Unsp spec) [Mass/ Vol]Ordered By: Naomie Martini on 12-30-2024 Potassium [Moles/Vol] 4.7 mmol/L 3.3-5.1 [facility] Potassium measurement (mass/ volume)Ordered By: Naomie Martini on 12-30-2024 Potassium (Unsp spec) [Mass/Vol] 4.7 mmol/L 3.3-5.1 [facility] Screening total cholesterol/ high density lipoprotein (HDL) cholesterol ratioOrdered By: Naomie Martini on 12-30-2024 Cholesterol.total/Chol esterol in HDL [Mass ratio] 4.28 {ratio} [facility] Serum creatinine measurement (mass/volume)Ordered By: Naomie Martini on 12-30-2024 Creatinine [Mass/Vol] 0.68 mg/dL Low 0.70-1.20 [facility] Serum globulin measurementOr dered By: Naomie Martini on 12-30-2024 Globulin (S) [Mass/Vol] 2.6 g/dL 2.2-4.2 [facility] Serum glucose measurement (m ass/volume)Ordered By: Naomie Martini on 12-30-2024 Glucose [Mass/Vol] 108 mg/dL High 70-99 [facility] Serum or plasma alanine siu otransferase (ALT) measurementOrdered By: Naomie Martini on 12-30-2024 ALT [Catalytic activity/Vol] 16 U/L <35 [facility] Serum or plasma albumin walter urement (mass/volume)Ordered By: Naomie Martini on 12-30-2024 Albumin [Mass/Vol] 4.5 g/dL 3.5-5.0 [facility] Serum or plasma albumin/glob ulin mass ratioOrdered [...] on 12-30-2024 Calcium [Mass/Vol] 10.3 mg/dL 7.6-11.0 [facility] Serum or plasma cholesterol in HDL measurement [...] 12-30-2024 Cholesterol [Mass/Vol] 242 mg/dL High <201 [facility] Comment on above: Cholesterol level, D esirable <200 mg/dLBorderline high cholesterol 200-239 mg/dLHigh cholesterol >=240 mg/dLRecommendations of the NCEP Adult Treatment Panel for the following risk-cutoff thresholds for the [place] population. Serum or plasma urea nitroge n measurement (mass/volume)Ordered By: Naomie Martini on 12-30-2024 Urea nitrogen [Mass/Vol] 15 mg/dL 4-19 [facility] Sodium levelOrdered By: Imani Martini on 12-30-2024 Sodium [Moles/Vol] 139 mmol/L 133-145 [facility] Total proteinOrdered By: Sunil Martini on 12-30-2024 Protein [Mass/Vol] 7.1 g/dL 5.9-8.4 [facility] Triglycerides measurementOrd ered By: Naomie Martini on 12-30-2024 Triglyceride [Mass/Vol] 132 mg/dL <199 [facility] Comment on above: The drugs N-Acetylcy steine and Metamizole may falsely depress this assay. Normal range: <150 mg/dLBorderline High: 150-199 mg/dLHigh: 200-499 mg/dLVery High: >500 mg/dL Internal Medicine Office Vis itowicho 12-23-2024 Internal Medicine Office Visit [facility] [address] [place] [address] [place] [address] OFFICE VISIT Date of Service: 12/23/24 MR#: [id number] Acct: [id number] Name: FELICITY VILLA Rep #: [id number] : 1965 Provider: Dr. Naomie west MD Age/Sex: 59/F Location: [facility] Status: Signed Intake Vital Signs 09/02/24 10:04 [...]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 TESTER pain FINDINGS: 5 lumbar-type vertebral bodies are [...] 02/28/2024 11:00:18 PM Ordering Provider: FÉLIX ROMAN [facility] ([place]) Absolute lymphocyte countOrd ered By: Nithin Keeganefrem on 04-22-2023 Lymphocytes Auto (Unsp spec) [#/Vol] 1.95 10*3/uL 0.83-4.51 [facility] Basophil percentageOrdered B y: Nithin العراقي on 04-22-2023 Amylase [Catalytic activity/Vol] 29 U/L 25-115 [facility] Basophils/100 WBC (Bld) 0.7 % 0-1 [facility] Bilirubin [Mass/Vol] 0.60 mg/dL 0.20-1.00 [facility] Comment on above: For patients on eltr ombopag therapy, use of Dimension Logan TBIL is not recommended. Chloride [Moles/Vol] 100 mmol/L 98-107 [facility] Eosinophils/100 WBC (Bld) 6.2 % 0-5 [facility] Glucose [Mass/Vol] 113 mg/dL 74-106 [facility] Comment on above: Fasting Glucose resu lt from 100 to 125 mg/dL suggests IMPAIRED HOMEOSTASIS per A.D.A. criteria. Neutrophils (Bld) [#/Vol] 5.0 10*3/uL 2.0-7.7 [facility] Neutrophils/100 WBC (Bld) 60.7 % 47-70 [facility] Potassium [Moles/Vol] 4.3 mmol/L 3.5-5.1 [facility] Protein [Mass/Vol] 7.4 g/dL 6.4-8.2 [facility] Sodium [Moles/Vol] 135 mmol/L 136-145 [facility] WBC (Bld) [#/Vol] 8.2 10*3/uL 4.4-11.0 [facility] Blood erythrocytes count (nu mber/volume)Ordered By: Nithin العراقي on 04-22-2023 RBC (Bld) [#/Vol] 5.21 10*6/uL 4.2-5.4 [facility] Blood hemoglobin measurement (mass/volume)Ordered By: Nithin [...] [facility] Urobilinogen (U) [Mass/Vol] 0.8928772 mg/dL [facility] [...] 04-22-2023 MCHC (RBC) [Mass/Vol] 35.8 g/dL 32-36 [facility] No Panel InformationOrdered By: Nithin [...] on 04-22-2023 Albumin [Mass/Vol] 3.9 g/dL 3.2-5.0 [facility] Serum or plasma albumin/glob ulin mass ratioOrdered By: Nithin العراقي on 04-22-2023 Albumin/Globulin [Mass ratio] 1.1 {ratio} 0.9-2.4 [facility] Serum or plasma calcium walter urement (mass/volume)Ordered By: Nihtin العراقي on 04-22-2023 Calcium [Mass/Vol] 9.3 mg/dL 8.5-10.1 [facility] Serum or plasma creatinine m easurement (mass/volume)Ordered By: Nithin العراقي on 04-22-2023 Creatinine [Mass/Vol] 0.72 mg/dL 0.55-1.02 [facility] Comment on above: The validity of the calculated GFR & GFRAA in patients over 70 years has not been determined. Clinical correlation is essential. Serum or plasma urea nitroge n measurement (mass/volume)Ordered By: Nithin العراقي on 04-22-2023 Urea nitrogen [Mass/Vol] 13 mg/dL 7-18 [facility] Thin prep Papanicolaou smear with manual screeningOrdered By: iNthin العراقي on 04-22-2023 Thin prep Papanicolaou smear with manual screening 11 U/L 15-37 [facility] Thin prep Papanicolaou smear with manual screening 2 5-15 [facility] Basophil percentageOrdered B y: Dr. Martini on 03-15-2023 Bilirubin [Mass/Vol] 0.60 mg/dL 0.20-1.00 [facility] Comment on above: For patients on eltr ombopag therapy, use of Dimension Logan TBIL is not recommended. Chloride [Moles/Vol] 102 mmol/L 98-107 [facility] Cholesterol [Mass/Vol] 225 mg/dL <200 [facility] Comment on above: <200 mg/dL Desirable 200-240 mg/dL Borderline >240 mg/dL High Risk Glucose [Mass/Vol] 108 mg/dL 74-106 [facility] Comment on above: Fasting Glucose resu lt from 100 to 125 mg/dL suggests IMPAIRED HOMEOSTASIS per A.D.A. criteria. Potassium [Moles/Vol] 4.6 mmol/L 3.5-5.1 [facility] Protein [Mass/Vol] 7.1 g/dL 6.4-8.2 [facility] Sodium [Moles/Vol] 138 mmol/L 136-145 [facility] Triglyceride [Mass/Vol] 167 mg/dL <199 [facility] [...] on 03-15-2023 Albumin [Mass/Vol] 4.0 g/dL 3.2-5.0 [facility] Serum or plasma albumin/glob ulin mass ratioOrdered By: Dr. Martnii on 03-15-2023 Albumin/Globulin [Mass ratio] 1.3 {ratio} 0.9-2.4 [facility] Serum or plasma calcium walter urement (mass/volume)Ordered By: Dr. Martini on 03-15-2023 Calcium [Mass/Vol] 9.6 mg/dL 8.5-10.1 [facility] Serum or plasma cholesterol in HDL measurement [...] on 03-15-2023 Creatinine [Mass/Vol] 0.58 mg/dL 0.55-1.02 [facility] Comment on above: The validity [...] Work Phone: Bilirubin [Mass/Vol] 0.60 mg/dL 0.20-1.00 [facility] Work Phone: Comment on above: For patients on eltr ombopag therapy, use of Dimension [place] TBIL is not recommended. Chloride [Moles/Vol] 102 mmol/L 98-107 [facility] Work Phone: Cholesterol [Mass/Vol] 201 mg/dL <200 [facility] Work Phone: Comment on above: <200 mg/dL Desirable 200-240 mg/dL Borderline >240 mg/dL High Risk Eosinophils/100 WBC (Bld) 5.2 % 0-5 [facility] Work Phone: Glucose [Mass/Vol] 108 mg/dL 74-106 [facility] Work Phone: Comment on above: Fasting Glucose resu lt from 100 to 125 mg/dL suggests IMPAIRED HOMEOSTASIS per A.D.A. criteria. Neutrophils (Bld) [#/Vol] 4.3 10*3/uL 2.0-7.7 [facility] Work Phone: Neutrophils/100 WBC (Bld) 54.9 % 47-70 [facility] Work Phone: Potassium [Moles/Vol] 4.8 mmol/L 3.5-5.1 [facility] Work Phone: Protein [Mass/Vol] 6.7 g/dL 6.4-8.2 [facility] Work Phone: Sodium [Moles/Vol] 138 mmol/L 136-145 [facility] Work Phone: Triglyceride [Mass/Vol] 208 mg/dL <199 [facility] Work Phone: Comment on above: The drugs N-Acetylcy steine and Metamizole may falsely depress this assay.Serum Triglycerides Reference Interval Normal <150 mg/dL Borderline high 150 - 199 mg/dL High 200 - 499 mg/dL Very High > or = 500 mg/dL WBC (Bld) [#/Vol] 7.7 10*3/uL 4.4-11.0 [facility] Work Phone: Blood erythrocytes count (nu mber/volume)on 07-10-2022 RBC (Bld) [#/Vol] 5.00 10*6/uL 4.2-5.4 [facility] Work Phone: Blood hemoglobin measurement (mass/volume)on [...] 07-10-2022 MCHC (RBC) [Mass/Vol] 35.5 g/dL 32-36 [facility] Work Phone: No Panel Informationon [...] (mass/volume)on 07-10-2022 Albumin [Mass/Vol] 3.8 g/dL 3.2-5.0 [facility] Work Phone: Serum or plasma albumin/glob ulin mass ratioon 07-10-2022 Albumin/Globulin [Mass ratio] 1.3 {ratio} 0.9-2.4 [facility] Work Phone: Serum or plasma calcium walter urement (mass/volume)on 07-10-2022 Calcium [Mass/Vol] 9.5 mg/dL 8.5-10.1 [facility] Work Phone: Serum or plasma cholesterol in [...] (mass/volume)on 07-10-2022 Creatinine [Mass/Vol] 0.73 mg/dL 0.55-1.02 [facility] Work Phone: Comment on above: [...] 07-10-2022 Urea nitrogen [Mass/Vol] 14 mg/dL -18 [facility] Work Phone: Thin prep Papanicolaou smear with manual screeningon 07-10-2022 Thin prep Papanicolaou smear with manual screening 14 U/L 15-37 [facility] Work Phone: Thin prep Papanicolaou smear with manual screening 5 5-15 [facility] Work Phone: Basophil percentageon 2021 Chloride [Moles/Vol] 100 mmol/L 98-107 [facility] Work Phone: Glucose [Mass/Vol] 98 mg/dL 74-106 [facility] Work Phone: Potassium [Moles/Vol] 4.4 mmol/L 3.5-5.1 [facility] Work Phone: Sodium [Moles/Vol] 136 mmol/L 136-145 [facility] Work Phone: Laboratory - Chemistry and C [...] (mass/volume)on 10-25-2021 Calcium [Mass/Vol] 9.5 mg/dL 8.5-10.1 [facility] Work Phone: Serum or plasma creatinine m easurement (mass/volume)on 10-25-2021 Creatinine [Mass/Vol] 0.69 mg/dL 0.55-1.02 [facility] Work Phone: Comment on above: [...] Hospital Work Phone: URINE JOVANNY CULTURE-IDENTIFICA [place] ([id number])Ordered By: Immigration Attorney on 06-17-2017 Bacteria identified Cx Nom (U) Escherichia coli Abnormal [facility] Work Phone: Comment on above: 50,000-100,000 colon y forming units per mL PATIENT NOT FASTINGP ERFORMED BY: JACKY [facility] [id number] [facility] [id number] Information: SRC:UC Bacteria identified Cx Nom (U) Final report Abnormal [facility] Work Phone: Comment on above: PATIENT NOT FASTINGP ERFORMED BY: JACKY [facility] [id number] [place] [employer] [facility] [id number] Information: SRC:UC Other Antibiotic [Susc] MIHEAD Normal [...] S PATIENT NOT FASTINGP ERFORMED BY: JACKY [facility] [id number] [facility] RoadHugh [facility] [id number] Information: SRC: HPV automatic (79045)Ordered By: Immigration Attorney on 06-19-2016 HPV 16+18+31+33+35+39+45+5 1+52+56+58+59+68 DNA Probe+sig amp Ql (Cvx) Negative Normal [facility] Work Phone: Comment on above: This high-risk HPV t est detects thirteen high-risk types(16/18/31/33/35/39/45/51/52/56/58/59/68) without differentiation. . Source.............C ervix;EndocervixNo. of containers..01 CYTYC Thin Prep VialPATIENT NOT FASTINGPERFORMED BY: Masala Reading [facility] [id number] BY: =G LabTriggerMail[address] [place] [address] [facility] [id number] Information: [id number] Microscopic observation Other stain Nom (Unsp spec) . Normal Comprehens geena Internal Medicine Work Phone: Comment on above: Source.............C ervix;EndocervixNo. of containers..01 CYTYC Thin Prep VialPATIENT NOT FASTINGPERFORMED BY: Masala Reading [facility] [id number] BY: =G WeOwe [id number] Reading [facility] [id number] Information: [id number] Pathology report final diagnosis Narrative SPRCS Normal Comprehensiv e Internal Medicine Work Phone: Comment on above: NEGATIVE FOR INTRAEP ITHELIAL LESION AND MALIGNANCY.THIS SPECIMEN WAS RESCREENED PART OF OUR UNIVERSAL BANKER PROGRAM.Satisfactory for evaluation. Endocervical and/or squamous metaplasticcells (endocervical component) are present.Z11.51Talib Meier, Secretary Bookkeeper (ASCP)Hilda Bob, Supervisory Secretary Bookkeeper (ASCP) Source.............C ervix;EndocervixNo. of containers..01 CYTYC Thin Prep VialPATIENT NOT FASTINGPERFORMED BY: [id number] Reading [facility] [id number] BY: =G Munch On Me[address] [facility] [id number] Information: [id number] HPV automatic (93435) PAPSMR Normal [facility] prehensive Internal Medicine Work Phone: Comment on [...] CYTYC Thin Prep VialPATIENT NOT FASTINGPERFORMED BY: [id number] Reading AlfredHari Seldon Corporation[facility] [id number] BY: =G Munch On [address] Reading TkrcuateCedar City Hospital [id number] Information: [id number] Urinalysis, Office ([id number])Or dered By: Lyn Conroy on 07-18-2015 Bilirubin [...] [facility] Work Phone: HPV automatic ([id number])Ordered By: Immigration Attorney on 06-17-2015 HPV 16+18+31+33+35+39+45+5 1+52+56+58+59+68 DNA Probe+sig amp Ql (Cvx) Negative Normal Comprehen sive Internal Medicine Work Phone: Comment on above: This high-risk HPV t est detects thirteen high-risk types(16/18/31/33/35/39/45/51/52/56/58/59/68) without differentiation. . Source.............C ervical;EndocervicalNo. of containers..01 CYTYC Thin Prep VialPATIENT NOT FASTINGPERFORMED BY: WB LabFirst CoverageNfgzeznvzt[address] [id number] BY: =G [address] [id number] Information: [id number] Microscopic observation Other stain Nom (Unsp spec) . Normal Comprehens [facility] Work Phone: Comment on above: Source.............C ervical;EndocervicalNo. of containers..01 CYTYC Thin Prep VialPATIENT NOT FASTINGPERFORMED BY: WB [facility] [id number] [place] [id number] BY: =G [facility] Arenvtuzhu[address] [id number] Information: [id number] Pathology report final diagnosis Narrative SPRCS Normal Comprehensiv e Internal Medicine Work Phone: Comment on above: NEGATIVE FOR INTRAEP ITHELIAL LESION AND MALIGNANCY.Satisfactory for evaluation. Endocervical and/or squamous metaplasticcells (endocervical component) are present.V73.81 ; Special screening examination, human papillomavirus [HPV]Ferny Keyes, Secretary Bookkeeper (ASCP) Source.............C ervical;EndocervicalNo. of containers..01 CYTYC Thin Prep VialPATIENT NOT FASTINGPERFORMED BY: WB [facility] [id number] [place] [id number] BY: =G [facility] Fhsczqepfl7[address] [place] [id number] Information: [id number] HPV automatic ([id number]) PAPSMR Normal [facility] prehensive Internal Medicine Work Phone: Comment on [...] Prep VialPATIENT NOT FASTINGPERFORMED BY: WB [facility] [id number] [facility] [id number] BY: =G [facility] Nzoqttlagd806 [facility] [id number] Information: [id number] HgA1C , Office ([id number])Ordere d By: Carmen Haque on 06-14-2014 HbA1c (Bld) [Mass fraction] 5.2 % Normal 4.6 - 7.1 [facility] Work Phone: Blood Glucose , Office ([phone])on 06-05-2012 Glucose Glucometer (BldC) [Moles/Vol] 113 1 Normal [facility] Work Phone: HgA1C , Office ([id number])on HbA1c (Bld) [Mass fraction] 5.1 % Normal 4.6 - 7.1 [facility] Work Phone: URINE JOVANNY CULTURE[place]IDENTIF[place] ([phone])Ordered By: Immigration Attorney on 05-02-2011 Bacteria identified Cx Nom (U) Final report Normal [facility] Work Phone: Comment on above: PATIENT NOT FASTINGP ERFORMED BY: JACKY [facility] Jzryby7748 [facility] [id number] Information: [id number] Bacteria identified Cx Nom (U) Escherichia coli Normal [facility] Work Phone: Comment on above: 25,000-50,000 colony forming units per mL PATIENT NOT FASTINGP ERFORMED BY: CB [facility] Mffhfg1446 [address] [place] [id number] Information: [id number] Other Antibiotic [Susc] MIHEAD Normal [facility] [...] PATIENT NOT FASTINGP ERFORMED BY: JACKY [facility] Awaivg9318 [address] RoadDublin [place] [id number] Information: [id number] Urinalysis, Office ([id number])on 05-02-2011 Bilirubin Ql (U) Negative Normal Comprehe [...] [facility] Work Phone: Urinalysis, Office ([id number])on 04-19-2011 Bilirubin Ql (U) Negative Normal Comprehe [...] Phone: [facility] 04-16-2025 23:00-0400 Diastolic blood pressure 63 mm[Hg] Dr. Naomie Martini MD Work Phone: [facility] 04-16-2025 23:00-0400 Heart rate 71 /min Dr. Naomie Martini MD Work Phone: [facility] 04-16-2025 23:00-0400 Respiratory rate 15 /min Dr. Naomie Martini MD Work Phone: [facility] 04-16-2025 23:00-0400 SaO2% (BldA) [Mass fraction] 94 % Dr. Naomie Martini MD Work Phone: [facility] 04-16-2025 23:00-0400 Systolic blood pressure 123 mm[Hg] Dr. Naomie Martini MD Work Phone: [facility] 04-16-2025 19:27-0400 Body height 162.[address] Naomie Martini MD Work Phone: [facility] 04-16-2025 19:27-0400 Body mass index (BMI) [Ratio] 22.9 kg/m2 Dr. Naomie Martini MD Work Phone: [facility] 04-16-2025 19:27-0400 Body weight 60.[address] Naomie Martini MD Work Phone: [facility] 01-04-2025 08:20-0400 Body temperature 98.4 [degF] [...] 162.6 cm Francisca Rivera MD Work Phone: [facility] 03-11-2024 10:23-0400 Body mass index (BMI) [Ratio] 22.31 kg/m2 Francisca Rivera MD Work Phone: [facility] 03-11-2024 10:23-0400 Body weight 58.97 kg Francisca Rivera MD Work Phone: [facility] 03-07-2024 09:46-0400 Body temperature 97.81 [degF] Krislyn Aberegg PA Work Phone: [facility] 03-07-2024 09:46-0400 Body weight 60.5 kg Krislyn Aberegg PA Work Phone: [facility] 03-07-2024 09:46-0400 Diastolic blood pressure 80 mm[Hg] Krislyn Aberegg PA Work Phone: [facility] 03-07-2024 09:46-0400 Heart rate 90 /min Krislyn Aberegg PA Work Phone: [facility] 03-07-2024 09:46-0400 Respiratory rate 20 /min Krislyn Aberegg PA Work Phone: [facility] 03-07-2024 09:46-0400 SaO2% (BldA) [Mass fraction] 99 % Krislyn Aberegg PA Work Phone: [facility] 03-07-2024 09:46-0400 Systolic blood pressure 132 mm[Hg] Krislyn Aberegg PA Work Phone: [facility] 02-28-2024 21:57-0400 Blood Pressure Location FÉLIX RMOAN MD [facility] 02-28-2024 21:57-0400 Blood Pressure Method FÉLIX ROMAN MD [facility] 02-28-2024 21:57-0400 Body height 162.6 cm FÉLIX ROMAN MD [facility] 02-28-2024 21:57-0400 Body temperature 97.16 [degF] FÉLIX ROMAN MD [facility] 02-28-2024 21:57-0400 Body weight 59.1 kg FÉLIX ROMAN MD [facility] 02-28-2024 21:57-0400 Diastolic Blood Pressure Non-Invasive 61 mm[Hg] FÉLIX ROMAN MD [facility] 02-28-2024 21:57-0400 Heart rate 79 /min FÉLIX ROMAN MD [facility] 02-28-2024 21:57-0400 Respiratory rate 16 /min FÉLIX ROMAN MD [facility] 02-28-2024 21:57-0400 Systolic Blood Pressure Non-Invasive 113 mm[Hg] FÉLIX ROMAN MD [facility] 04-24-2023 12:56-0400 Body height 160.02 cm [...] 125 mm[Hg] Dr. Naomie Martini Work Phone: [facility] [...] (Body Mass Index) 21.86 kg/m2 Noelle Bowden [facility] Internal Medicine Work Phone: 07-29-2019 12:07-0500 Body Temperature 97.2 [degF] Noelle Bowden [facility] Internal Medicine Work Phone: Comment on above: Method: Temporal 07-29-2019 12:07-0500 Body weight 57.78 kg Noelle Bowden [facility] Internal Medicine Work Phone: 07-29-2019 12:07-0500 BP Diastolic 68 mm[Hg] Noelle Bowden [facility] Internal Medicine Work Phone: Comment on above: Patient Position: Sitting; Cuff Location : Left Arm; Cuff Size: Standard 07-29-2019 12:07-0500 BP Systolic 98 mm[Hg] Noelle Bowden [facility] Internal Medicine Work Phone: Comment on above: Patient Position: Sitting; Cuff Location : Left Arm; Cuff Size: Standard 07-29-2019 12:07-0500 BSA (Body Surface Area) 1.61 m2 Noelle Bowden [facility] Internal Medicine Work Phone: 07-29-2019 12:07-0500 Height 162.56 cm Noelle Bowden [facility] Internal Medicine Work Phone: 07-29-2019 12:07-0500 Pulse (Heart Rate) 82 /min Noelle Bowden [facility] Internal Medicine Work Phone: Comment on above: Pattern: Regular 07-29-2019 12:07-0500 Pulse Oximetry 98 % Noelle Bowden [facility] Internal Medicine Work Phone: Comment on above: Room air 07-29-2019 12:07-0500 Respiratory Rate 16 /min Noelle Bowden [facility] Internal Medicine Work Phone: Comment on above: Pattern: Unlabored 06-08-2019 11:21-0400 BMI (Body Mass Index) 21.35 kg/m2 Noelle Bowden [facility] Internal Medicine Work Phone: 06-08-2019 11:21-0400 Body Temperature 98.2 [degF] Noelle Bowden [facility] Internal Medicine Work Phone: Comment on above: Method: Temporal 06-08-2019 11:21-0400 Body weight 56.42 kg Noelle Bowden [facility] Internal Medicine Work Phone: 06-08-2019 11:21-0400 BP Diastolic 72 mm[Hg] Noelle Bowden [facility] Internal Medicine Work Phone: Comment on above: Patient Position: Sitting; Cuff Location : Left Arm; Cuff Size: Standard 06-08-2019 11:21-0400 BP Systolic 124 mm[Hg] Noelle Bowden [facility] Internal Medicine Work Phone: Comment on above: Patient Position: Sitting; Cuff Location : Left Arm; Cuff Size: Standard 06-08-2019 11:21-0400 BSA (Body Surface Area) 1.6 m2 Noelle Bowden [facility] Internal Medicine Work Phone: 06-08-2019 11:21-0400 Height 162.56 cm Noelle Bowden [facility] Internal Medicine Work Phone: 06-08-2019 11:21-0400 Pulse (Heart Rate) 86 /min Noelle Bowden [facility] Internal Medicine Work Phone: Comment on above: Pattern: Regular 06-08-2019 11:21-0400 Pulse Oximetry 97 % Noelle Bowden [facility] Internal Medicine Work Phone: Comment on above: Room air 06-08-2019 11:21-0400 Respiratory Rate 16 /min Noelle Bowden [facility] Internal Medicine Work Phone: Comment on above: Pattern: Unlabored 08-12-2018 12:21-0500 BMI (Body Mass Index) 21.48 kg/m2 Noelle Bowden [facility] Internal Medicine Work Phone: 08-12-2018 12:21-0500 Body weight 56.76 kg Noelle Bowden [facility] Internal Medicine Work Phone: 08-12-2018 12:21-0500 BP Diastolic 68 mm[Hg] Noelle Bowden [facility] Internal Medicine Work Phone: Comment on above: Patient Position: Sitting; Cuff Location : Left Arm; Cuff Size: Standard 08-12-2018 12:21-0500 BP Systolic 110 mm[Hg] Noelle Bowden [facility] Internal Medicine Work Phone: Comment on above: Patient Position: Sitting; Cuff Location : Left Arm; Cuff Size: Standard 08-12-2018 12:21-0500 BSA (Body Surface Area) 1.6 m2 Noelle Bowden [facility] Internal Medicine Work Phone: 08-12-2018 12:21-0500 Height 162.56 cm Noelle Bowden [facility] Internal Medicine Work Phone: 08-12-2018 12:21-0500 Pulse (Heart Rate) 81 /min Noelle Bowden [facility] Internal Medicine Work Phone: Comment on above: Pattern: Regular 08-12-2018 12:21-0500 Pulse Oximetry 97 % Noelle Bowden [facility] Internal Medicine Work Phone: Comment on above: Room air 08-12-2018 12:21-0500 Respiratory Rate 18 /min Noelle Bowden [facility] Internal Medicine Work Phone: Comment on above: Pattern: Unlabored 06-13-2018 09:23-0400 BMI (Body Mass Index) 21.37 kg/m2 Noelle Bowden [facility] Internal Medicine Work Phone: 06-13-2018 09:23-0400 Body Temperature 98.8 [degF] Noelle Bowden [facility] Internal Medicine Work Phone: Comment on above: Method: Temporal 06-13-2018 09:23-0400 Body weight 56.47 kg Noelle Bowden [facility] Internal Medicine Work Phone: 06-13-2018 09:23-0400 BP Diastolic 82 mm[Hg] Noelle Bowden [facility] Internal Medicine Work Phone: Comment on above: Patient Position: Sitting; Cuff Location : Left Arm; Cuff Size: Standard 06-13-2018 09:23-0400 BP Systolic 134 mm[Hg] Noelle Bowden [facility] Internal Medicine Work Phone: Comment on above: Patient Position: Sitting; Cuff Location : Left Arm; Cuff Size: Standard 06-13-2018 09:23-0400 BSA (Body Surface Area) 1.6 m2 Noelle Bowden [facility] Internal Medicine Work Phone: 06-13-2018 09:23-0400 Height 162.56 cm Noelle Bowden [facility] Medicine Work Phone: 06-13-2018 09:23-0400 Pulse (Heart Rate) 79 /min Noelle Bowden [facility] Medicine Work Phone: Comment on above: Pattern: Regular 06-13-2018 09:23-0400 Pulse Oximetry 99 % Noelle Bowden [facility] Medicine Work Phone: Comment on above: Room air 06-13-2018 09:23-0400 Respiratory Rate 16 /min Noelle Bowden [facility] Medicine Work Phone: Comment on above: Pattern: Unlabored 06-05-2018 10:18-0400 BMI (Body Mass Index) 20.77 kg/m2 Noelle Bowden [facility] Internal Medicine Work Phone: 06-05-2018 10:18-0400 Body Temperature 98.5 [degF] Noelle Bowden [facility] Internal Medicine Work Phone: Comment on above: Method: Temporal 06-05-2018 10:180400 Body weight 54.89 kg Noelle Bowden [facility] Internal Medicine Work Phone: 06-05-2018 10:18-0400 BP Diastolic 78 mm[Hg] Noelle Bowden [facility] Internal Medicine Work Phone: Comment on above: Patient Position: Sitting; Cuff Location : Left Arm; Cuff Size: Standard 06-05-2018 10:18-0400 BP Systolic 116 mm[Hg] Noelle Bowden [facility] Internal Medicine Work Phone: Comment on above: Patient Position: Sitting; Cuff Location : Left Arm; Cuff Size: Standard 06-05-2018 10:18-0400 BSA (Body Surface Area) 1.58 m2 Noelle Bowden [facility] Internal Medicine Work Phone: 06-05-2018 10:18-0400 Height 162.56 cm Noelle Bowden [facility] Medicine Work Phone: 06-05-2018 10:18-0400 Pulse (Heart Rate) 79 /min Noelle Bowden [facility] Internal Medicine Work Phone: Comment on above: Pattern: Regular 06-05-2018 10:18-0400 Pulse Oximetry 98 % Noelle Bowden [facility] Medicine Work Phone: Comment on above: Room air 06-05-2018 10:18-0400 Respiratory Rate 16 /min Noelle Bowden [facility] Internal Medicine Work Phone: Comment on above: Pattern: Unlabored 06-17-2017 11:27-0400 BMI (Body Mass Index) 20.86 kg/m2 Noelle Bowden [facility] Internal Medicine Work Phone: 06-17-2017 11:27-0400 Body weight 55.11 kg Noelle Bowden [facility] Medicine Work Phone: 06-17-2017 11:27-0400 BP Diastolic 80 mm[Hg] Noelle Bowden [facility] Internal Medicine Work Phone: Comment on above: Patient Position: Sitting; Cuff Location : Left Arm; Cuff Size: Standard 06-17-2017 11:27-0400 BP Systolic 120 mm[Hg] Noelle Bowden [facility] Medicine Work Phone: Comment on above: Patient Position: Sitting; Cuff Location : Left Arm; Cuff Size: Standard 06-17-2017 11:27-0400 BSA (Body Surface Area) 1.58 m2 Noelle Bowden [facility] Work Phone: 06-17-2017 11:27-0400 Height 162.56 cm Noelle Bowden [facility] Work Phone: 06-17-2017 11:27-0400 Pulse (Heart Rate) 70 /min Noelle Bowden [facility] Work Phone: Comment on above: Pattern: Regular 06-17-2017 11:27-0400 Pulse Oximetry 98 % Noelle Bowden [facility] Medicine Work Phone: Comment on above: Room air 06-17-2017 11:27-0400 Respiratory Rate 18 /min Noelle Bowden [facility] Medicine Work Phone: Comment on above: Pattern: Unlabored 01-17-2017 13:33-0400 BMI (Body Mass Index) 20.98 kg/m2 Noelle [facility]kes [facility] Work Phone: 01-17-2017 13:33-0400 Body weight 55.45 kg Noelle Bowden [facility] Work Phone: 01-17-2017 13:33-0400 BP Diastolic 76 mm[Hg] Noelle Bowden [facility] Work Phone: Comment on [...] 13:33-0400 Pulse Oximetry 98 % Noelle Bowden [facility] Medicine Work Phone: Comment on above: Room air 01-17-2017 13:33-0400 Respiratory Rate 18 /min Noelle Bowden [facility] Work Phone: Comment on above: Pattern: Unlabored 10-29-2016 09:15-0500 BMI (Body Mass Index) 21.11 kg/m2 Noelle Wilkes [facility] Work Phone: 10-29-2016 09:15-0500 Body Temperature 98.4 [degF] Noelle Bowden [facility] Medicine Work Phone: Comment on above: Method: Temporal 10-29-2016 09:15-0500 Body weight 55.79 kg Noelle Bowden [facility] Work Phone: 10-29-2016 09:15-0500 BP Diastolic 82 mm[Hg] Noelle Bowden [facility] Work Phone: Comment on above: Patient Position: Sitting; Cuff Location : Left Arm; Cuff Size: Standard 10-29-2016 09:15-0500 BP Systolic 116 mm[Hg] Noelle Bowden [facility] Work Phone: Comment on above: Patient Position: Sitting; Cuff Location : Left Arm; Cuff Size: Standard 10-29-2016 09:15-0500 BSA (Body Surface Area) 1.59 m2 Noelle Bowden [facility] Medicine Work Phone: 10-29-2016 09:15-0500 Height 162.56 cm Noelle Bowden [facility] Work Phone: 10-29-2016 09:15-0500 Pulse (Heart Rate) 96 /min Noelle Bowden [facility] Medicine Work Phone: Comment on above: Pattern: Regular 10-29-2016 09:15-0500 Pulse Oximetry 98 % Noelle Bowden [facility] Work Phone: Comment on above: Room air 10-29-2016 09:15-0500 Respiratory Rate 16 /min Noelle Bowden [facility] Work Phone: Comment on above: Pattern: Unlabored 06-18-2016 11:12-0400 BMI (Body Mass Index) 20.81 kg/m2 Noelle Bowden [facility] Internal Medicine Work Phone: 06-18-2016 11:12-0400 Body weight 55 kg Noelle Bowden [facility] Medicine Work Phone: 06-18-2016 11:12-0400 BP Diastolic 78 mm[Hg] Noelle Bowden [facility] Medicine Work Phone: Comment on above: Patient Position: Sitting; Cuff Location : Left Arm; Cuff Size: Standard 06-18-2016 11:12-0400 BP Systolic 118 mm[Hg] Noelle Bowden [facility] Medicine Work Phone: Comment on above: Patient Position: Sitting; Cuff Location : Left Arm; Cuff Size: Standard 06-18-2016 11:12-0400 BSA (Body Surface Area) 1.58 m2 Noelle Bowden [facility] Work Phone: 06-18-2016 11:12-0400 Height 162.56 cm Noelle Bowden [facility] Work Phone: 06-18-2016 11:12-0400 Pulse (Heart Rate) 84 /min Noelle Bowden [facility] Work Phone: Comment on above: Pattern: Regular 06-18-2016 11:12-0400 Pulse Oximetry 99 % Noelle Bowden [facility] Work Phone: Comment on above: Room air 06-18-2016 11:12-0400 Respiratory Rate 18 /min Noelle Bowden [facility] Work Phone: Comment on above: Pattern: Unlabored 02-09-2016 09:37-0400 BMI (Body Mass Index) 20.47 kg/m2 Noelle Bowden [facility] Internal Medicine Work Phone: 02-09-2016 09:37-0400 Body weight 54.09 kg Noelle Bowden [facility] Medicine Work Phone: 02-09-2016 09:37-0400 BP Diastolic 80 mm[Hg] Noelle Bowden [facility] Work Phone: Comment on above: Patient Position: Sitting; Cuff Location : Left Arm; Cuff Size: Standard 02-09-2016 09:37-0400 BP Systolic 120 mm[Hg] Noelle Bowden [facility] Medicine Work Phone: Comment on above: Patient Position: Sitting; Cuff Location : Left Arm; Cuff Size: Standard 02-09-2016 09:37-0400 BSA (Body Surface Area) 1.57 m2 Noelle Bowden [facility] Medicine Work Phone: 02-09-2016 09:37-0400 Height 162.56 cm Noelle Bowden [facility] Medicine Work Phone: 02-09-2016 09:37-0400 Pulse (Heart Rate) 68 /min Noelle Bowden [facility] Medicine Work Phone: Comment on above: Pattern: Regular 02-09-2016 09:37-0400 Pulse Oximetry 98 % Noelle Bowden [facility] Internal Medicine Work Phone: Comment on above: Room air 02-09-2016 09:37-0400 Respiratory Rate 18 /min Noelle Bowden [facility] Medicine Work Phone: Comment on above: Pattern: Unlabored 12-28-2015 09:13-0400 BMI (Body Mass Index) 20.94 kg/m2 Noelle Bowden [facility] Internal Medicine Work Phone: 12-28-2015 09:13-0400 Body Temperature 97.4 [degF] Noelle Bowden [facility] Medicine Work Phone: 12-28-2015 09:13-0400 Body weight 55.34 kg Noelle Bowden [facility] Work Phone: 12-28-2015 09:13-0400 BP Diastolic 80 mm[Hg] Noelle Bowden [facility] Work Phone: Comment on above: Patient Position: Sitting; Cuff Location : Left Arm; Cuff Size: Standard 12-28-2015 09:13-0400 BP Systolic 116 mm[Hg] Noelle Bowden [facility] Medicine Work Phone: Comment on above: Patient Position: Sitting; Cuff Location : Left Arm; Cuff Size: Standard 12-28-2015 09:13-0400 BSA (Body Surface Area) 1.59 m2 Noelle Bowden [facility] Work Phone: 12-28-2015 09:13-0400 Height 162.56 cm Noelle Bowden [facility] Work Phone: 12-28-2015 09:13-0400 Pulse (Heart Rate) 82 /min Noelle Bowden [facility] Work Phone: Comment on above: Pattern: Regular 12-28-2015 09:13-0400 Pulse Oximetry 99 % Noelle Bowden [facility] Work Phone: Comment on above: Room air 12-28-2015 09:13-0400 Respiratory Rate 14 /min Noelle Bowden [facility] Work Phone: Comment on above: Pattern: Unlabored 10-03-2015 15:49-0500 BMI (Body Mass Index) 20.94 kg/m2 Noelle Bowden [facility] Internal Medicine Work Phone: 10-03-2015 15:49-0500 Body Temperature 98.9 [degF] Noelle Bowden [facility] Medicine Work Phone: Comment on above: Method: Temporal 10-03-2015 15:49-0500 Body weight 55.34 kg Noelle Bowden [facility] Medicine Work Phone: 10-03-2015 15:49-0500 BP Diastolic 66 mm[Hg] Noelle Bowden [facility] Work Phone: Comment on above: Patient Position: Sitting; Cuff Location : Left Arm; Cuff Size: Standard 10-03-2015 15:49-0500 BP Systolic 104 mm[Hg] Noelle Bowden [facility] Work Phone: Comment on above: Patient Position: Sitting; Cuff Location : Left Arm; Cuff Size: Standard 10-03-2015 15:49-0500 BSA (Body Surface Area) 1.59 m2 Noelle Bowden [facility] Work Phone: 10-03-2015 15:49-0500 Height 162.56 cm Noelle Bowden [facility] Work Phone: 10-03-2015 15:49-0500 Pulse (Heart Rate) 76 /min Noelle Bowden [facility] Work Phone: Comment on above: Pattern: Regular 10-03-2015 15:49-0500 Pulse Oximetry 96 % Noelle Bowden [facility] Work Phone: Comment on above: Room air 10-03-2015 15:49-0500 Respiratory Rate 16 /min Noelle Bowden [facility] Work Phone: Comment on above: Pattern: Unlabored 08-29-2015 10:06-0500 BMI (Body Mass Index) 20.77 kg/m2 Noelle Wilkes [facility] Internal Medicine Work Phone: 08-29-2015 10:06-0500 Body Temperature 98.9 [degF] Noelle Bowden [facility] Work Phone: Comment on above: Method: Temporal 08-29-2015 10:06-0500 Body weight 54.89 kg Noelle Bowden [facility] Work Phone: 08-29-2015 10:06-0500 BP Diastolic 64 mm[Hg] Noelle Bowden [facility] Work Phone: Comment on above: Patient Position: Sitting; Cuff Location : Left Arm; Cuff Size: Standard 08-29-2015 10:06-0500 BP Systolic 102 mm[Hg] Noelle Bowden [facility] Internal Medicine Work Phone: Comment on above: Patient Position: Sitting; Cuff Location : Left Arm; Cuff Size: Standard 08-29-2015 10:06-0500 BSA (Body Surface Area) 1.58 m2 Noelle Bowden [facility] Internal Medicine Work Phone: 08-29-2015 10:06-0500 Height 162.56 cm Noelle Bowden [facility] Internal Medicine Work Phone: 08-29-2015 10:06-0500 Pulse (Heart Rate) 85 /min Noelle Bowden [facility] Internal Medicine Work Phone: Comment on above: Pattern: Regular 08-29-2015 10:06-0500 Pulse Oximetry 98 % Noelle Bowden [facility] Internal Medicine Work Phone: Comment on above: Room air 08-29-2015 10:06-0500 Respiratory Rate 16 /min Noelle Bowden [facility] Internal Medicine Work Phone: Comment on above: Pattern: Unlabored 07-18-2015 09:59-0400 BMI (Body Mass Index) 20.94 kg/m2 Noelle Wilkes [facility] Internal Medicine Work Phone: 07-18-2015 09:59-0400 Body Temperature 98.3 [degF] Noelle Bowden [facility] Internal Medicine Work Phone: Comment on above: Method: Temporal 07-18-2015 09:59-0400 Body weight 55.34 kg Noelle Bowden [facility] Internal Medicine Work Phone: 07-18-2015 09:59-0400 BP Diastolic 92 mm[Hg] Noelle Bowden [facility] Internal Medicine Work Phone: Comment on above: Patient Position: Sitting; Cuff Location : Left Arm; Cuff Size: Standard 07-18-2015 09:59-0400 BP Systolic 140 mm[Hg] Noelle Bowden [facility] Internal Medicine Work Phone: Comment on above: Patient Position: Sitting; Cuff Location : Left Arm; Cuff Size: Standard 07-18-2015 09:59-0400 BSA (Body Surface Area) 1.59 m2 Noelle Bowden [facility] Internal Medicine Work Phone: 07-18-2015 09:59-0400 Height 162.56 cm Noelle Bowden [facility] Internal Medicine Work Phone: 07-18-2015 09:59-0400 Pulse (Heart Rate) 92 /min Noelle Bowden [facility] Internal Medicine Work Phone: Comment on above: Pattern: Regular 07-18-2015 09:59-0400 Pulse Oximetry 98 % Noelle Bowden [facility] Internal Medicine Work Phone: Comment on above: Room air 07-18-2015 09:59-0400 Respiratory Rate 16 /min Noelle Bowden [facility] Internal Medicine Work Phone: Comment on above: Pattern: Unlabored 07-01-2015 11:13-0400 BMI (Body Mass Index) 20.8 kg/m2 Noelle Bowden [facility] Internal Medicine Work Phone: 07-01-2015 11:13-0400 Body Temperature 98.7 [degF] Noelle Bowden [facility] Internal Medicine Work Phone: Comment on above: Method: Temporal 07-01-2015 11:13-0400 Body weight 54.98 kg Noelle Bowden [facility] Internal Medicine Work Phone: 07-01-2015 11:13-0400 BP Diastolic 76 mm[Hg] Noelle Bowden [facility] Internal Medicine Work Phone: Comment on above: Patient Position: Sitting; Cuff Location : Left Arm; Cuff Size: Standard 07-01-2015 11:130400 BP Systolic 118 mm[Hg] Noelle Bowden [facility] Internal Medicine Work Phone: Comment on above: Patient Position: Sitting; Cuff Location : Left Arm; Cuff Size: Standard 07-01-2015 11:130400 BSA (Body Surface Area) 1.58 m2 Noelle Bowden [facility] Internal Medicine Work Phone: 07-01-2015 11:130400 Height 162.56 cm Noelle Bowden [facility] Internal Medicine Work Phone: 07-01-2015 11:13-0400 Pulse (Heart Rate) 71 /min Noelle Bowden [facility] Internal Medicine Work Phone: Comment on above: Pattern: Regular 07-01-2015 11:13-0400 Pulse Oximetry 98 % Noelle Bowden [facility] Internal Medicine Work Phone: Comment on above: Room air 07-01-2015 11:130400 Respiratory Rate 16 /min Noelle Bowden [facility] Internal Medicine Work Phone: Comment on above: Pattern: Unlabored 06-17-2015 09:24-0400 BMI (Body Mass Index) 20.94 kg/m2 Noelle Bowden [facility] Internal Medicine Work Phone: 06-17-2015 09:24-0400 Body Temperature 98.1 [degF] Noelle Bowden [facility] Internal Medicine Work Phone: Comment on above: Method: Temporal 06-17-2015 09:24-0400 Body weight 55.34 kg Noelle Bowden [facility] Internal Medicine Work Phone: 06-17-2015 09:24-0400 BP Diastolic 74 mm[Hg] Noelle Bowden [facility] Internal Medicine Work Phone: Comment on above: Patient Position: Sitting; Cuff Location : Left Arm; Cuff Size: Standard 06-17-2015 09:24-0400 BP Systolic 118 mm[Hg] Noelle Bowden [facility] Internal Medicine Work Phone: Comment on above: Patient Position: Sitting; Cuff Location : Left Arm; Cuff Size: Standard 06-17-2015 09:24-0400 BSA (Body Surface Area) 1.59 m2 Noelle Bowden [facility] Internal Medicine Work Phone: 06-17-2015 09:24-0400 Height 162.56 cm Noelle Bowden [facility] Internal Medicine Work Phone: 06-17-2015 09:24-0400 Pulse (Heart Rate) 64 /min Noelle Bowden [facility] Internal Medicine Work Phone: Comment on above: Pattern: Regular 06-17-2015 09:24-0400 Respiratory Rate 15 /min Noelle Bowden [facility] Internal Medicine Work Phone: Comment on above: Pattern: Unlabored 06-14-2014 13:11-0400 BMI (Body Mass Index) 21.63 kg/m2 Noelle Bowden [facility] Internal Medicine Work Phone: 06-14-2014 13:11-0400 Body Temperature 97 [degF] Noelle Bowden [facility] Internal Medicine Work Phone: Comment on above: Method: Temporal 06-14-2014 13:0400 Body weight 57.15 kg Noelle Bowden [facility] Internal Medicine Work Phone: 06-14-2014 13:11-0400 BP Diastolic 66 mm[Hg] Noelle Bowden [facility] Internal Medicine Work Phone: Comment on above: Patient Position: Sitting; Cuff Location : Left Arm; Cuff Size: Standard 06-14-2014 13:11-0400 BP Systolic 116 mm[Hg] Noelle Bowden [facility] Internal Medicine Work Phone: Comment on above: Patient Position: Sitting; Cuff Location : Left Arm; Cuff Size: Standard 06-14-2014 13:11-0400 BSA (Body Surface Area) 1.61 m2 Noelle Bowden [facility] Internal Medicine Work Phone: 06-14-2014 13:0400 Height 162.56 cm Noelle Bowden [facility] Internal Medicine Work Phone: 06-14-2014 13:110400 Pulse (Heart Rate) 94 /min Noelle Bowden [facility] Internal Medicine Work Phone: Comment on above: Pattern: Regular 06-14-2014 13:-0400 Pulse Oximetry 99 % Noelle Bowden [facility] Internal Medicine Work Phone: Comment on above: Room air 06-14-2014 13:0400 Respiratory Rate 17 /min Noelle Bowden [facility] Internal Medicine Work Phone: Comment on above: Pattern: Unlabored 12-30-2013 14:25-0400 BMI (Body Mass Index) 21.14 kg/m2 Noelle Bowden [facility] Internal Medicine Work Phone: 12-30-2013 14:25-0400 Body Temperature 97 [degF] Noelle Bowden [facility] Internal Medicine Work Phone: Comment on above: Method: Oral 12-30-2013 14:25-0400 Body weight 55.88 kg Noelle Bowden [facility] Internal Medicine Work Phone: 12-30-2013 14:25-0400 BP Diastolic 64 mm[Hg] Noelle Bowden [facility] Internal Medicine Work Phone: Comment on above: Patient Position: Sitting; Cuff Location : Left Arm; Cuff Size: Standard 12-30-2013 14:25-0400 BP Systolic 102 mm[Hg] Noelle Bowden [facility] Internal Medicine Work Phone: Comment on above: Patient Position: Sitting; Cuff Location : Left Arm; Cuff Size: Standard 12-30-2013 14:25-0400 BSA (Body Surface Area) 1.59 m2 Noelle Bowden [facility] Internal Medicine Work Phone: 12-30-2013 14:25-0400 Height 162.56 cm Noelle Bowden [facility] Internal Medicine Work Phone: 12-30-2013 14:25-0400 Pulse (Heart Rate) 68 /min Noelle Bowden [facility] Internal Medicine Work Phone: Comment on above: Pattern: Regular 12-30-2013 14:25-0400 Pulse Oximetry 97 % Noelle Bowden [facility] Internal Medicine Work Phone: Comment on above: Room air 12-30-2013 14:25-0400 Respiratory Rate 18 /min Noelle Bowden [facility] Internal Medicine Work Phone: Comment on above: Pattern: Unlabored 06-15-2013 11:23-0400 BMI (Body Mass Index) 21.2 kg/m2 Noelle Bowden [facility] Internal Medicine Work Phone: 06-15-2013 11:23-0400 Body Temperature 98.9 [degF] Noelle Bowden [facility] Internal Medicine Work Phone: Comment on above: Method: Oral 06-15-2013 11:23-0400 Body weight 56.02 kg Noelle Bowden [facility] Internal Medicine Work Phone: 06-15-2013 11:23-0400 BP Diastolic 68 mm[Hg] Noelle Bowden [facility] Internal Medicine Work Phone: Comment on above: Patient Position: Sitting; Cuff Location : Left Arm; Cuff Size: Standard 06-15-2013 11:23-0400 BP Systolic 118 mm[Hg] Noelle Bowden [facility] Internal Medicine Work Phone: Comment on above: Patient Position: Sitting; Cuff Location : Left Arm; Cuff Size: Standard 06-15-2013 11:23-0400 BSA (Body Surface Area) 1.59 m2 Noelle Bowden [facility] Internal Medicine Work Phone: 06-15-2013 11:23-0400 Height 162.56 cm Noelle Bowden [facility] Internal Medicine Work Phone: 06-15-2013 11:23-0400 Pulse (Heart Rate) 79 /min Noelle Bowden [facility] Internal Medicine Work Phone: Comment on above: Pattern: Regular 06-15-2013 11:23-0400 Pulse Oximetry 94 % Noelle Bowden [facility] Internal Medicine Work Phone: Comment on above: Room air 06-15-2013 11:23-0400 Respiratory Rate 18 /min Noelle Bowden [facility] Internal Medicine Work Phone: Comment on above: Pattern: Unlabored 08-22-2012 08:19-0500 BMI (Body Mass Index) 21.71 kg/m2 Noelle Bowden [facility] Internal Medicine Work Phone: 08-22-2012 08:19-0500 Body Temperature 98.3 [degF] Noelle Bowden [facility] Internal Medicine Work Phone: Comment on above: Method: Oral 08-22-2012 08:19-0500 Body weight 57.38 kg Noelle Bowden [facility] Internal Medicine Work Phone: 08-22-2012 08:19-0500 BP Diastolic 80 mm[Hg] Noelle Bowden [facility] Internal Medicine Work Phone: Comment on above: Patient Position: Sitting; Cuff Location : Left Arm; Cuff Size: Large 08-22-2012 08:19-0500 BP Systolic 136 mm[Hg] Noelle Bowden [facility] Internal Medicine Work Phone: Comment on above: Patient Position: Sitting; Cuff Location : Left Arm; Cuff Size: Large 08-22-2012 08:19-0500 BSA (Body Surface Area) 1.61 m2 Noelle Bowden [facility] Internal Medicine Work Phone: 08-22-2012 08:19-0500 Height 162.56 cm Noelle Bowden [facility] Internal Medicine Work Phone: 08-22-2012 08:19-0500 Pulse (Heart Rate) 64 /min Noelle Bowden [facility] Internal Medicine Work Phone: Comment on above: Pattern: Regular 08-22-2012 08:19-0500 Respiratory Rate 16 /min Noelle Bowden [facility] Internal Medicine Work Phone: Comment on above: Pattern: Unlabored 07-24-2012 08:53-0400 BMI (Body Mass Index) 21.47 kg/m2 Noelle Wil[facility] Internal Medicine Work Phone: 07-24-2012 08:53-0400 Body Temperature 98.1 [degF] Noelle Bowden [facility] Internal Medicine Work Phone: Comment on above: Method: Oral 07-24-2012 08:53-0400 Body weight 56.73 kg Noelle Bowden [facility] Internal Medicine Work Phone: 07-24-2012 08:53-0400 BP Diastolic 62 mm[Hg] Noelle Bowden [facility] Internal Medicine Work Phone: Comment on above: Patient Position: Sitting; Cuff Location : Left Arm; Cuff Size: Standard 07-24-2012 08:53-0400 BP Systolic 124 mm[Hg] Noelle Bowden [facility] Internal Medicine Work Phone: Comment on above: Patient Position: Sitting; Cuff Location : Left Arm; Cuff Size: Standard 07-24-2012 08:53-0400 BSA (Body Surface Area) 1.6 m2 Noelle Bowden [facility] Internal Medicine Work Phone: 07-24-2012 08:53-0400 Height 162.56 cm Noelle Bowden [facility] Internal Medicine Work Phone: 07-24-2012 08:53-0400 Pulse (Heart Rate) 60 /min Noelle Bowden [facility] Internal Medicine Work Phone: Comment on above: Pattern: Regular 07-24-2012 08:53-0400 Respiratory Rate 16 /min Noelle Bowden [facility] Internal Medicine Work Phone: Comment on above: Pattern: Unlabored 06-25-2012 12:07-0400 BMI (Body Mass Index) 20.98 kg/m2 Noelle Wilkes [facility] Internal Medicine Work Phone: 06-25-2012 12:07-0400 Body Temperature 98.1 [degF] Noelle Bowden [facility] Internal Medicine Work Phone: Comment on above: Method: Oral 06-25-2012 12:07-0400 Body weight 55.45 kg Noelle Bowden [facility] Internal Medicine Work Phone: 06-25-2012 12:07-0400 BP Diastolic 70 mm[Hg] Noelle Bowden [facility] Internal Medicine Work Phone: Comment on above: Patient Position: Sitting; Cuff Location : Left Arm; Cuff Size: Standard 06-25-2012 12:07-0400 BP Systolic 122 mm[Hg] Noelle Bowden [facility] Internal Medicine Work Phone: Comment on above: Patient Position: Sitting; Cuff Location : Left Arm; Cuff Size: Standard 06-25-2012 12:07-0400 BSA (Body Surface Area) 1.59 m2 Noelle Bowden [facility] Internal Medicine Work Phone: 06-25-2012 12:07-0400 Height 162.56 cm Noelle Bowden [facility] Internal Medicine Work Phone: 06-25-2012 12:07-0400 Pulse (Heart Rate) 64 /min Noelle Bowden [facility] Internal Medicine Work Phone: Comment on above: Pattern: Regular 06-25-2012 12:07-0400 Respiratory Rate 20 /min Noelle Bowden [facility] Internal Medicine Work Phone: Comment on above: Pattern: Unlabored 06-05-2012 09:08-0400 BMI (Body Mass Index) 20.98 kg/m2 Noelle Bowden [facility] Internal Medicine Work Phone: 06-05-2012 09:08-0400 Body Temperature 98.7 [degF] Noelle Bowden [facility] Internal Medicine Work Phone: Comment on above: Method: Oral 06-05-2012 09:08-0400 Body weight 55.45 kg Noelle Bowden [facility] Internal Medicine Work Phone: 06-05-2012 09:08-0400 BP Diastolic 70 mm[Hg] Noelle Bowden [facility] Internal Medicine Work Phone: Comment on above: Patient Position: Sitting; Cuff Location : Left Arm; Cuff Size: Large 06-05-2012 09:08-0400 BP Systolic 102 mm[Hg] Noelle Bowden [facility] Internal Medicine Work Phone: Comment on above: Patient Position: Sitting; Cuff Location : Left Arm; Cuff Size: Large 06-05-2012 09:08-0400 BSA (Body Surface Area) 1.59 m2 Noelle Bowden [facility] Internal Medicine Work Phone: 06-05-2012 09:08-0400 Height 162.56 cm Noelle Bowden [facility] Internal Medicine Work Phone: 06-05-2012 09:08-0400 Pulse (Heart Rate) 64 /min Noelle Bowden [facility] Internal Medicine Work Phone: Comment on above: Pattern: Regular 06-05-2012 09:08-0400 Respiratory Rate 18 /min Noelle Bowden [facility] Internal Medicine Work Phone: Comment on above: Pattern: Unlabored 08-07-2011 10:28-0500 BMI (Body Mass Index) 19.96 kg/m2 Noelle Bowden [facility] Internal Medicine Work Phone: 08-07-2011 10:28-0500 Body Temperature 97.5 [degF] Noelle Bowden [facility] Internal Medicine Work Phone: Comment on above: Method: Oral 08-07-2011 10:28-0500 Body weight 52.76 kg Noelle Bowden [facility] Internal Medicine Work Phone: 08-07-2011 10:28-0500 BP Diastolic 76 mm[Hg] Noelle Bowden [facility] Internal Medicine Work Phone: Comment on above: Patient Position: Sitting; Cuff Location : Left Arm; Cuff Size: Standard 08-07-2011 10:28-0500 BP Systolic 118 mm[Hg] Noelle Bowden [facility] Internal Medicine Work Phone: Comment on above: Patient Position: Sitting; Cuff Location : Left Arm; Cuff Size: Standard 08-07-2011 10:28-0500 BSA (Body Surface Area) 1.55 m2 Noelle Bowden [facility] Internal Medicine Work Phone: 08-07-2011 10:28-0500 Height 162.56 cm Noelle Bowden [facility] Internal Medicine Work Phone: 08-07-2011 10:28-0500 Pulse (Heart Rate) 78 /min Noelle Bowden [facility] Internal Medicine Work Phone: Comment on above: Pattern: Regular 08-07-2011 10:28-0500 Pulse Oximetry 98 % Noelle Bowden [facility] Internal Medicine Work Phone: Comment on above: Room air 05-24-2011 09:43-0400 BMI (Body Mass Index) 19.96 kg/m2 [facility] Work Phone: 05-24-2011 09:43-0400 Body weight 52.76 kg Noelle Bowden [facility] Internal Medicine Work Phone: 05-24-2011 09:43-0400 BP Diastolic 80 mm[Hg] Noelle Bowden [facility] Internal Medicine Work Phone: Comment on above: Patient Position: Sitting; Cuff Location : Left Arm; Cuff Size: Standard 05-24-2011 09:43-0400 BP Systolic 120 mm[Hg] Noelle Bowden [facility] Internal Medicine Work Phone: Comment on above: Patient Position: Sitting; Cuff Location : Left Arm; Cuff Size: Standard 05-24-2011 09:43-0400 BSA (Body Surface Area) 1.55 m2 Noelle Bowden [facility] Internal Medicine Work Phone: 05-24-2011 09:43-0400 Height 162.56 cm Noelle Bowden [facility] Internal Medicine Work Phone: 05-24-2011 09:43-0400 Pulse (Heart Rate) 68 /min Noelle Bowden [facility] Internal Medicine Work Phone: Comment on above: Pattern: Regular 05-24-2011 09:43-0400 Respiratory Rate 20 /min Noelle Bowden [facility] Internal Medicine Work Phone: Comment on above: Pattern: Unlabored 05-02-2011 10:59-0400 BMI (Body Mass Index) 20 kg/m2 [facility] Work Phone: 05-02-2011 10:59-0400 Body weight 52.84 kg Noelle Bowden [facility] Internal Medicine Work Phone: 05-02-2011 10:59-0400 BP Diastolic 68 mm[Hg] Noelle Bowden [facility] Internal Medicine Work Phone: Comment on above: Patient Position: Sitting; Cuff Location : Left Arm; Cuff Size: Standard 05-02-2011 10:59-0400 BP Systolic 110 mm[Hg] Noelle Bowden [facility] Internal Medicine Work Phone: Comment on above: Patient Position: Sitting; Cuff Location : Left Arm; Cuff Size: Standard 05-02-2011 10:59-0400 BSA (Body Surface Area) 1.55 m2 Noelle Bowden [facility] Internal Medicine Work Phone: 05-02-2011 10:59-0400 Height 162.56 cm Noelle Bowden [facility] Internal Medicine Work Phone: 05-02-2011 10:59-0400 Pulse (Heart Rate) 60 /min Noelle Bowden [facility] Internal Medicine Work Phone: Comment on above: Pattern: Regular 05-02-2011 10:59-0400 Respiratory Rate 18 /min Noelle Bowden [facility] Internal Medicine Work Phone: Comment on above: Pattern: Unlabored 04-19-2011 14:40-0400 BMI (Body Mass Index) 20.77 kg/m2 Noelle Bowden [facility] Internal Medicine Work Phone: 04-19-2011 14:40-0400 Body weight 54.89 kg Noelle Bowden [facility] Internal Medicine Work Phone: 04-19-2011 14:40-0400 BP Diastolic 70 mm[Hg] Noelle Bowden [facility] Internal Medicine Work Phone: Comment on above: Patient Position: Sitting; Cuff Location : Left Arm; Cuff Size: Standard 04-19-2011 14:40-0400 BP Systolic 122 mm[Hg] Noelle Bowden [facility] Internal Medicine Work Phone: Comment on above: Patient Position: Sitting; Cuff Location : Left Arm; Cuff Size: Standard 04-19-2011 14:40-0400 BSA (Body Surface Area) 1.58 m2 Noelle Bowden [facility] Internal Medicine Work Phone: 04-19-2011 14:40-0400 Height 162.56 cm Noelle Bowden [facility] Internal Medicine Work Phone: 04-19-2011 14:40-0400 Pulse (Heart Rate) 60 /min Noelle Bowden [facility] Internal Medicine Work Phone: Comment on above: Pattern: Regular 04-19-2011 14:40-0400 Respiratory Rate 18 /min Noelle Bowden [facility] Internal Medicine Work Phone: Comment on above: Pattern: Unlabored 11-16-2009 08:45-0500 BMI (Body Mass Index) 20.77 kg/m2 Noelle Bowden [facility] Internal Medicine Work Phone: 11-16-2009 08:45-0500 Body weight 54.89 kg Noelle Bowden [facility] Internal Medicine Work Phone: 11-16-2009 08:45-0500 BP Diastolic 80 mm[Hg] Noelle Bowden [facility] Internal Medicine Work Phone: Comment on above: Patient Position: Sitting; Cuff Location : Left Arm; Cuff Size: Large 11-16-2009 08:45-0500 BP Systolic 118 mm[Hg] Noelle Bowden [facility] Internal Medicine Work Phone: Comment on above: Patient Position: Sitting; Cuff Location : Left Arm; Cuff Size: Large 11-16-2009 08:45-0500 BSA (Body Surface Area) 1.58 m2 Noelle Bowden [facility] Internal Medicine Work Phone: 11-16-2009 08:45-0500 Height 162.56 cm Noelle Bowden [facility] Internal Medicine Work Phone: 11-16-2009 08:45-0500 Pulse (Heart Rate) 64 /min Noelle Bowden [facility] Internal Medicine Work Phone: Comment on above: Pattern: Regular 11-16-2009 08:45-0500 Respiratory Rate 20 /min Noelle Bowden [facility] Internal Medicine Work Phone: Comment on above: Pattern: Unlabored 10-17-2009 11:51-0500 BMI (Body Mass Index) 20.77 kg/m2 Noelle Bowden [facility] Internal Medicine Work Phone: 10-17-2009 11:51-0500 Body weight 54.89 kg Noelle Bowden [facility] Internal Medicine Work Phone: 10-17-2009 11:51-0500 BP Diastolic 76 mm[Hg] Noelle Bowden [facility] Internal Medicine Work Phone: Comment on above: Patient Position: Sitting; Cuff Location : Left Arm; Cuff Size: Large 10-17-2009 11:51-0500 BP Systolic 108 mm[Hg] Noelle Bowden [facility] Internal Medicine Work Phone: Comment on above: Patient Position: Sitting; Cuff Location : Left Arm; Cuff Size: Large 10-17-2009 11:51-0500 BSA (Body Surface Area) 1.58 m2 Noelle Bowden [facility] Internal Medicine Work Phone: 10-17-2009 11:51-0500 Height 162.56 cm Noelle Bowden [facility] Internal Medicine Work Phone: 10-17-2009 11:51-0500 Pulse (Heart Rate) 60 /min Noelle Bowden [facility] Internal Medicine Work Phone: Comment on above: Pattern: Regular 10-17-2009 11:51-0500 Pulse Oximetry 98 % Noelle Bowden [facility] Internal Medicine Work Phone: Comment on above: Room air 10-17-2009 11:51-0500 Respiratory Rate 18 /min Noelle Bowden [facility] Internal Medicine Work Phone: Comment on above: Pattern: Unlabored 10-03-2009 15:34-0500 Body Temperature 97.5 [degF] Noelle Bowden [facility] Internal Medicine Work Phone: 10-03-2009 15:34-0500 BP Diastolic 64 mm[Hg] Noelle Bowden [facility] Internal Medicine Work Phone: Comment on above: Patient Position: Sitting; Cuff Location : Left Arm; Cuff Size: Standard 10-03-2009 15:34-0500 BP Systolic 104 mm[Hg] Noelle Bowden [facility] Internal Medicine Work Phone: Comment on above: Patient Position: Sitting; Cuff Location : Left Arm; Cuff Size: Standard 10-03-2009 15:34-0500 Pulse (Heart Rate) 76 /min Noelle Bowden [facility] Internal Medicine Work Phone: Comment on above: Pattern: Regular 10-03-2009 15:34-0500 Respiratory Rate 16 /min Noelle Bowden [facility] Internal Medicine Work Phone: Comment on above: Pattern: Unlabored 12-17-2007 10:47-0400 BMI (Body Mass Index) 20.77 kg/m2 Noelle Bowden [facility] Internal Medicine Work Phone: 12-17-2007 10:47-0400 Body weight 54.89 kg Noelle Bowden [facility] Internal Medicine Work Phone: 12-17-2007 10:47-0400 BP Diastolic 80 mm[Hg] Noelle Bowden [facility] Internal Medicine Work Phone: Comment on above: Patient Position: Sitting; Cuff Location : Left Arm; Cuff Size: Standard 12-17-2007 10:47-0400 BP Systolic 128 mm[Hg] Noelle Bowden [facility] Internal Medicine Work Phone: Comment on above: Patient Position: Sitting; Cuff Location : Left Arm; Cuff Size: Standard 12-17-2007 10:47-0400 BSA (Body Surface Area) 1.58 m2 Noelle Bowden [facility] Internal Medicine Work Phone: 12-17-2007 10:47-0400 Head Circumference 0 cm Noelle Bowden [facility] Work Phone: 12-17-2007 10:47-0400 Height 162.56 cm Noelle Bowden [facility] Work Phone: 12-17-2007 10:47-0400 Pulse (Heart Rate) 80 /min Noelle Bowden [facility] Internal Medicine Work Phone: Comment on above: Pattern: Regular 12-17-2007 10:47-0400 Respiratory Rate 16 /min Noelle Bowden [facility] Internal Medicine Work Phone: Comment on above: Pattern: Unlabored 11-24-2007 11:47-0500 BMI (Body Mass Index) 20.96 kg/m2 Noelle Bowden [facility] Internal Medicine Work Phone: 11-24-2007 11:47-0500 Body weight 55.4 kg Noelle Bowden [facility] Medicine Work Phone: 11-24-2007 11:47-0500 BP Diastolic 76 mm[Hg] Noelle Bowden [facility] Internal Medicine Work Phone: Comment on above: Patient Position: Sitting; Cuff Location : Left Arm; Cuff Size: Standard 11-24-2007 11:47-0500 BP Systolic 112 mm[Hg] Noelle Bowden [facility] Internal Medicine Work Phone: Comment on above: Patient Position: Sitting; Cuff Location : Left Arm; Cuff Size: Standard 11-24-2007 11:47-0500 BSA (Body Surface Area) 1.59 m2 Noelle Bowden [facility] Internal Medicine Work Phone: 11-24-2007 11:47-0500 Head Circumference 0 cm Noelle Bowden [facility] Medicine Work Phone: 11-24-2007 11:47-0500 Height 162.56 cm Noelle Bowden [facility] Medicine Work Phone: 11-24-2007 11:47-0500 Pulse (Heart Rate) 80 /min Noelle Bowden [facility] Internal Medicine Work Phone: Comment on above: Pattern: Regular 11-24-2007 11:47-0500 Respiratory Rate 20 /min Noelle Bowden [facility] Internal Medicine Work Phone: Comment on above: Pattern: Unlabored 03-17-2007 09:53-0400 Body Temperature 97.8 [degF] Noelle Bowden [facility] Internal Medicine Work Phone: Comment on above: Method: Oral 03-17-2007 09:53-0400 Body weight 53.52 kg Noelle Bowden [facility] Internal Medicine Work Phone: 03-17-2007 09:53-0400 BP Diastolic 78 mm[Hg] Noelle [facility] Work Phone: Comment on above: Patient Position: Sitting; Cuff Location : Right Arm; Cuff Size: Standard 03-17-2007 09:53-0400 BP Systolic 120 mm[Hg] Noelle Bowden [facility] Medicine Work Phone: Comment on above: Patient Position: Sitting; Cuff Location : Right Arm; Cuff Size: Standard 03-17-2007 09:53-0400 Head Circumference 0 cm Noelle [facility]den [facility] Work Phone: 03-17-2007 09:53-0400 Height 0 cm Noelle Bowden [facility] Work Phone: 03-17-2007 09:53-0400 Pulse (Heart Rate) 60 /min Noelle Bowden [facility] Medicine Work Phone: Comment on above: Pattern: Regular 03-17-2007 09:53-0400 Respiratory Rate 16 /min Noelle Bowden [facility] Internal Medicine Work Phone: Comment on above: Pattern: Unlabored Encounters Encounter Date Encounter Type Care Provider Facility Start: 05-03-2025 ambulatory [facility] Facility :[facility] Start: 04-16-2025 End: 04-16-2025 Emergency department patient visit Dr. Naomie Martini MD Work Phone: -Emergency Department Work Phone: Start: 01-04-2025 End: 01-04-2025 Patient encounter procedure Ignacio Hernandez [place] -[facility] Work Phone: Start: 01-04-2025 End: 01-04-2025 ambulatory Naomie Martini Facility:[facility] Start: 12-30-2024 End: 12-30-[address] Naomie Martini MD Work Phone: [facility] Work Phone: Start: 12-30-2024 End: 12-30-[address] Naomie Martini MD -Laboratory, [place] Start: 12-30-2024 End: 12-30-2024 ambulatory Efrobertongbe Olecaritoe Facility:[facility] Start: 12-23-2024 End: 12-23-[address] Naomie Martini MD -[facility] Work Phone: Start: 12-23-2024 End: 12-23-2024 ambulatory Efrobertongbe Olecaritoe Facility:[facility] Start: 09-02-2024 End: 09-02-2024 ambulatory Efewongbe Olecaritoe Facility:[facility] Start: 08-27-2024 Encounter for other preprocedural examination Lyn Rigoberto [facility] Start: 08-18-2024 End: 08-18-2024 ambulatory Efrobertongbe Jarrode Facility:[facility] Start: 08-17-2024 ambulatory Efrobertongbe Jarrode Facili ty:[facility] Start: 08-10-2024 End: 08-10-2024 ambulatory Efrobertongbe Olecaritoe Facility:[facility] Start: 08-10-2024 End: 08-10-2024 ambulatory Efewongbe Olecaritoe Facility:[facility] Start: 08-04-2024 End: 08-04-2024 ambulatory [facility] Rigoberto [facility] Facility:[facility] Start: 07-16-2024 End: 07-16-2024 ambulatory [facility] Rigoberto [facility] Facility:[facility] Start: 07-13-2024 End: 07-13-2024 [facility] Start: 06-17-2024 End: 06-17-2024 ambulatory Efrobertongbe Jarrode Facility:[facility] Start: 06-17-2024 End: 06-17-2024 ambulatory [facility] Facility:[facility] Start: 04-27-2024 End: 07-24-2024 ambulatory FRANCISCA RIVERA MD Facility:[facility] Start: 04-27-2024 End: 07-24-2024 Physical therapy management FRANCISCA RIVERA MD [facility] Start: 04-22-2024 End: 04-22-2024 Orders Only [...] Start: 03-25-2024 End: 03-25-2024 ambulatory JUDD SANDOVAL Facility:[facility] Start: 03-25-2024 End: 03-25-2024 Subsequent hospital [...] Start: 03-11-2024 End: 03-11-2024 ambulatory FRANCISCA RIVERA Facility:[facility] Start: 03-11-2024 End: 03-11-2024 Subsequent hospital visit by physician Tricia Mcadams Mc [facility] Comment on above: Other closed fractur e of shaft of left fibula, initial encounter [S82.492A] Start: 03-09-2024 Orders Only Francisca cedillo MD Work Phone: Orthopedics Comment on above: Other closed fractur e of shaft of left fibula, initial encounter (Primary Dx) Start: 03-07-2024 End: 03-07-2024 Emergency department patient visit PRINCESS FLEMING Facility:[facility] Start: 03-07-2024 End: 03-07-2024 Subsequent hospital visit by physician Tricia [facility] Mar[facility] Work Phone: Radiology Comment on above: Left leg pain [M79.6 05] Start: 03-07-2024 End: 03-07-2024 ambulatory PRINCESS FLEMING Facility:[facility] Start: 03-07-2024 End: 03-07-2024 Patient encounter procedure Hanna COFFMAN Work Phone: [facility] Comment on above: Left leg pain (Prima ry Dx); Other closed fracture of shaft of left fibula, initial encounter Start: 02-28-2024 End: 02-28-2024 Emergency department patient visit FÉLIX ROMAN MD [facility] Start: 02-06-[address] Romeo Martini MD Work Phone: [facility] Start: 04-29-2023 End: 04-29-[address] Naomie Martini Work Phone: [facility] Work Phone: Start: 04-29-2023 End: 04-29-[address] Naomie Martini Work Phone: [facility]-Outpatient Breast Imaging Work Phone: Start: 04-24-2023 End: 04-24-[address] Naomie Martini Work Phone: [facility] Internal Medicine Work Phone: Start: 04-22-2023 End: 04-22-[address] Naomie Martini Work Phone: [facility] Work Phone: Start: 04-17-2023 Non-patient / Non-visit Dr. Dena Martini Work Phone: [facility] Start: 04-17-2023 End: 04-17-2023 Admission to same day surgery center Dr. Naomie Martini Work Phone: [facility]-Endoscopy Work Phone: Start: 04-04-2023 End: 04-04-[address] Naomie Martini Work Phone: [facility] Work Phone: Start: 03-28-2023 End: 03-28-[address] Naomie Martini Work Phone: [facility] Work Phone: Start: 03-28-2023 End: 03-28-[address] Naomie Martini Work Phone: [facility] Work Phone: Start: 03-15-2023 Patient encounter status [...] encounter procedure Dr. Naomie Martini Work Phone: [facility] Start: 01-22-2023 End: 01-22-[address] Naomie Martini Work Phone: [facility] Work Phone: Start: 01-22-2023 End: 01-22-[address] Naomie Martini Work Phone: [facility] Start: 01-22-2023 End: 01-22-[address] Naomie Martini Work Phone: [facility] Start: 10-19-2022 End: 10-19-[address] Naomie Martini Work Phone: [facility] Start: 07-17-2022 End: 07-17-[address] Naomie Martini Work Phone: [facility] Start: 07-10-2022 End: 07-10-[address] Naomie Martini Work Phone: [facility] Work Phone: Start: 07-10-2022 End: 07-10-[address] [facility] [place] Start: 04-26-2022 End: 04-26-[address] Naomie Martini Work Phone: [facility]-Outpatient Breast Imaging Start: 04-03-2022 End: 04-03-[address] Naomie Martini Work Phone: [facility] Start: 12-19-2021 End: 12-19-[address] Naomie Martini Work Phone: [facility]-Cat Scan, [facility] Start: 10-25-2021 End: 10-25-[address] [facility] [place] Start: 10-27-2020 End: 10-27-2020 Office outpatient visit 10 minutes Noelle Kelsey [facility] Start: 07-29-2019 End: 07-29-2019 Office outpatient visit 15 minutes Noelle Kelsey [facility] Start: 06-08-2019 End: 06-08-2019 Periodic preventive med est patient 40-64yrs Noelle Dennise [facility] Start: 08-12-2018 End: 08-12-2018 Office outpatient visit 15 minutes Noelle Bowden [facility] Start: 06-13-2018 End: 06-13-2018 Office outpatient visit 15 minutes Noelle Dennise [facility] Start: 06-05-2018 End: 06-05-2018 Periodic preventive med est patient 65yrs& older Noelle Bowden [facility] Start: 06-19-2017 End: 06-19-2017 Phone Encounter Noelle Bowden [facility] [employer] [facility] Start: 06-17-2017 End: 06-17-2017 Periodic preventive med est patient 40-64yrs Noelle Dennise [facility] Start: 01-17-2017 End: 01-17-2017 Office outpatient visit 15 minutes Noelle Bowden [facility] Start: 10-29-2016 End: 10-29-2016 Office outpatient visit 15 minutes Noelle Bowden [facility] Start: 06-18-2016 End: 06-18-2016 Periodic preventive med est patient 40-64yrs Noelle Dennise [facility] Start: 02-09-2016 End: 02-09-2016 Office outpatient visit 15 minutes Noelle Bowden [facility] Start: 12-28-2015 End: 12-28-2015 Office outpatient visit 15 minutes Noelle Bowden [facility] Start: 10-03-2015 End: 10-03-2015 Office outpatient visit 25 minutes Noelle Bowden [facility] Start: 08-29-2015 End: 08-29-2015 Office outpatient visit 25 minutes Noelle Bowden [facility] Start: 07-18-2015 End: 07-18-2015 Office outpatient visit 25 minutes Noelle Bowden [facility] Start: 07-01-2015 End: 07-01-2015 Office outpatient visit 15 minutes Noelle Bowden [facility] Start: 06-17-2015 End: 06-17-2015 Periodic preventive med est patient 40-64yrs Noelle Dennise [facility] Start: 06-14-2014 End: 06-14-2014 Periodic preventive med est patient 40-64yrs Noelle Dennise [facility] Start: 12-30-2013 End: 12-30-2013 Patient encounter procedure Noelle Bowden [facility] Start: 06-15-2013 End: 06-15-2013 Patient encounter procedure Noelle [facility] Start: 09-01-2012 End: 09-01-2012 Phone Encounter Noelle Bowden [facility] Start: 09-01-2012 End: 09-01-2012 Phone Encounter Noelle Bowden [facility] Start: 08-22-2012 End: 08-22-2012 Patient encounter procedure Noelle Bowden [facility] Start: 07-24-2012 End: 07-24-2012 Patient encounter procedure Noelle Bowden [facility] Start: 06-25-2012 End: 06-25-2012 Patient encounter procedure Noelle Bowden [facility] Start: 06-05-2012 End: 06-05-2012 Patient encounter procedure Noelle Bowden [facility] Start: 08-07-2011 End: 08-07-2011 Office outpatient visit 25 minutes Noelle Bowden [facility] Start: 05-24-2011 End: 05-24-2011 Patient encounter procedure Noelle Bowden [facility] Start: 05-02-2011 End: 05-02-2011 Patient encounter procedure Noelle Bowden [facility] Start: 04-26-2011 End: 04-26-2011 Phone Encounter Noelle Bowden [facility] Start: 04-19-2011 End: 04-19-2011 Office outpatient visit 10 minutes Noelle Bowden [facility] Start: 11-16-2009 End: 11-16-2009 Patient encounter procedure Noelle Bowden [facility] Start: 10-17-2009 End: 10-17-2009 Office outpatient visit 25 minutes Noellehernán Bowden [facility] Start: 10-03-2009 End: 10-03-2009 Patient encounter procedure Noelle Bowden [facility] Start: 12-17-2007 End: 12-17-2007 Patient encounter procedure Noelle Bowden [facility] Start: 11-24-2007 End: 11-24-2007 Patient encounter procedure Noelle Bowden [facility] Start: 03-17-2007 End: 03-17-2007 Office outpatient visit 25 minutes Noellehernán Medranoon [facility] Internal Medicine Procedures Date Procedure Procedure Detail Performing Clinician Start: 04-16-2025 Plain chest X-ray Dr. Naomie Mratini MD Work Phone: Start: 04-16-2025 Estimated creatinine [...] Medicine Office Visit Comments: See Note; NOTES: [facility] [address] [place] [address] [place] [address] OFFICE VISIT Date of Service: 11/07/20 MR#: [id number] Acct: [id number] Name: KADIE VILLALINE Carin Rep #: [id number] : 1965 Provider: Dr. Naomie west MD Age/Sex: 55/F Location: [facility] Status: Signed Intake Vital Signs 11/07/20 Height [...] mg PO DAILY 11/07/20 [History Confirmed 11/07/20] [facility] Medical History (Updated 11/07/20 @ 10:26 [...] acute distress Orientation: alert, awake, oriented x3 HEN[facility] Head: normal to inspection, normocephalic, atraumatic Ears: [...] any concerns. This note was generated with FreshPlanetation software. It may contain incorrect words, spelling, and punctuation that were not noted in checking the note before signing. Coding Level of Care Code Off vis,new,level 3 Diagnoses Dermatitis L30.9 Elevated blood pressure reading without diagnosis of hypertension R03.0 02/15/21 1347 <Electronically signed by Naomie Martini MD> Date Naomie Mratini MD Cosigner Signature: Date (if applicable) CC: Noelle Bowden Start: 07-22-2018 End: 07-23-2018 Dexa Bone Density Study Comments: See Note; NOTES: [facility] Imaging Services [address] [place] [address] Dexa Bone Density Study MR#: [id number] Acct: [id number] Name: FELICITY VILLA V Rep #: [id number] : 1965 F 53 From: Terry Pérez MD PCP: Noelle Bowden DO Status: [facility] Study: Dexa Bone Density Study Date of Exam: 07/22/18 Exam# [id number] Ordering Dr: Noelle Bowden DO STUDY: DUAL [...] Terry Pérez MD at 10:10 EDT Tel [phone], Service support , CC: Noelle Bowden DO Needle Loom Weaver: Signed Noelle Bowden Work Phone: Start: 07-22-2018 End: 07-23-2018 SCREENING MAMM (CAD), BILAT Comments: See Note; NOTES: [facility] Imaging Services [address] [place] [address] SCREENING MAMM (CAD), BILAT MR#: [id number] Acct: [id number] Name: FELICITY VILLA V Rep #: [id number] : 1965 F 53 From: Terry Pérez MD PCP: Noelle Bowden DO Status: REG CLI Study: SCREENING MAMM (CAD), BILAT Date of Exam: 07/22/18 Exam# [id number] Ordering Dr: Noelle Bowden DO MAMMOGRAPHY - [...] delay biopsy of a clinically suspicious abnormality. [id number] Electronically Signed: Terry Pérez MD at 8:05 EDT Tel [phone], Service support , CC: Noelle Bowden DO Needle Loom Weaver: Signed Noelle Medranoon Work Phone: Start: 07-11-2018 End: 07-11-2018 Urgent Care Visit Report Comments: See Note; NOTES: [facility] [address] [place] [address] OFFICE VISIT Date of Service: 07/11/18 MR#: [id number] Acct: [id number] Name: FELICITY VILLA V Rep #: [id number] : 1965 Provider: Cruz Ch NP Age/Sex: 53/F Location: [facility] Status: Signed Intake Vital Signs07/11/18 Blood Pressure [...] oriented x3 Limitations: mental status not altered [facility] Head: normal to inspection Ears: hearing [...] Carotid Duplex Ultrasound Comments: See Note; NOTES: [facility] Cardiovascular Services [address] [place] [address] Carotid Duplex Ultrasound 06/20/18 1108 MR#: [id number] Acct: [id number] Name: FELICITY VILLA V Rep #: [id number] : 1965 53 From: Michael Lopez MD Attending Dr: Noelle Bowden DO Status: REG CLI Ordering Dr: Noelle Bowden DO Date: 06/20/18 Location: [facility] Sex: F C Admitted: Reason [...] the left vertebral artery. Procedure Carotid Duplex 29453. Exam performed in department. Interpretation Summary Mild (<50%) stenosis right extracranial internal carotid. Mild (<50%) stenosis left extracranial internal carotid. Flow within the vertebral arteries is antegrade bilaterally. Ordering Physician: Noelle Bowden Referring Physician: Noelle Bowden Performed By: China Nation RVT and Student 06/25/18752 Date Michael Lopez MD CC: Noelle Bowden DO Date Dictated: 06/20/18 1108 Date Transcribed: 06/25/18752 Needle Loom Weaver: Signed Noelle Bowden Work Phone: Start: 06-25-2018 End: 06-25-2018 Carotid Duplex Ultrasound Comments: See Note; NOTES: [facility] Cardiovascular Services [address] [place] [address] Carotid Duplex Ultrasound 06/20/18 1108 MR#: [id number] Acct: [id number] Name: FELICITY VILLA V Rep #: [id number] : 1965 53 From: Michael Lopez MD Attending Dr: Noelle Bowden DO Status: REG CLI Ordering Dr: Noelle Bowden DO Date: 06/20/18 Location: [facility] Sex: F C Admitted: Reason [...] the left vertebral artery. Procedure Carotid Duplex 29540. Exam performed in department. Interpretation Summary Mild (<50%) stenosis right extracranial internal carotid. Mild (<50%) stenosis left extracranial internal carotid. Flow within the vertebral arteries is antegrade bilaterally. Ordering Physician: Noelle Bowden Referring Physician: Noelle Bowden Performed By: China Nation RVT and Student 06/25/18 0753 Date Michael Lopez MD CC: Noelle Bowden DO Date Dictated: 06/20/18 1108 Date Transcribed: 06/25/18752 Needle Loom Weaver: Signed Noelle Bowden Work Phone: Start: 05-27-2018 End: 05-27-2018 Emergency Department Summary Comments: See Note; NOTES: [facility] Medical Records Department [address] [place] [address] Emergency Department Summary 05/27/1838 MR#: [id number] Acct: [id number] Name: FELICITY VILLA V Rep #: [id number] : 1965 53 From: Abdirahman Perdue MD [...] Chest pain This note was generated with myTips dictation software. It may contain incorrect words, [...] your Primary Care Provider. Call [facility] ([phone]) or report to the closest Emergency Room. Call 911 if necessary. 05/27/18 09 <Electronically signed by Abdirahman Perdue MD> Date Abdirahman Perdue MD Cosigner Signature (If Indicated): Date CC: Noelle Hairstoneen Dennise Start: 05-27-2018 End: 05-27-2018 Chest 1 View (Portable) Comments: See Note; NOTES: [facility] Imaging Services [address] [place] [address] Chest 1 View (Portable) MR#: [id number] Acct: [id number] Name: FELICITY VILLA V Rep #: [id number] : 1965 F 53 From: Terry Pérez MD PCP: Noelle Bowden DO Status: REG ER Study: Chest 1 View (Portable) Date of Exam: 05/27/18 Exam# [id number] Ordering Dr: Abdirahman Perdue MD STUDY: X-RAY [...] Terry Pérez MD at 9:19 EDT Tel [phone], Service support , CC: Noelle Bowden DO; Abdirahman Perdue MD Needle Loom Weaver: Signed Noelle Bowden Start: 10-02-2017 End: 10-02-2017 Urgent Care Visit Report Comments: See Note; NOTES: [facility] [address] [place] [address] [address] [place] [address] OFFICE VISIT Date of Service: 10/02/17 MR#: [id number] Acct: [id number] Name: FELICITY VILLA V Rep #: [id number] : 1965 Provider: Ignacio COFFMAN Age/Sex: 52/F Location: [facility] Status: Signed Intake Vital Signs10/02/17 Height 5 [...] Report Comments: See Note; NOTES: [facility] [address] [place] [address] OFFICE VISIT Date of Service: 09/28/17 MR#: [id number] Acct: [id number] Name: FELICITY VILLA V Rep #: [id number] : 1965 Provider: Jason COFFMAN Age/Sex: 52/F Location: [facility] Status: Signed Intake Vital Signs09/28/17 Height 5 [...] without hematuria 09/28/17 0933 <Electronically signed by Jsaon COFFMAN> Date Jason COFFMAN Cosigner Signature: Date (if applicable) CC: Noelle Bowden Start: 10-12-2016 End: 10-12-2016 SCREENING MAMM (CAD), BILAT Comments: See Note; NOTES: [facility] Imaging Services [address] [place] [address] Verdana 4d SCREENING MAMM (CAD), BILAT MR#: [id number] Acct: [id number] Name: ALLENFELICITY V Rep #: [id number] : 1965 F 51 From: Terry Pérez MD PCP: Noelle Bowden DO Status: [facility] Study: SCREENING MAMM (CAD), BILAT Date of Exam: 10/12/16 Exam# [id number] Ordering Dr: Noelle Bowden DO MAMMOGRAPHY - [...] delay biopsy of a clinically suspicious abnormality. [id number] Electronically Signed: Terry Pérez MD at 9:20 EST Tel [phone], Service support [phone], CC: Noelle Bowden DO Needle Loom Weaver: Signed Noelle Bowden Work Phone: Start: 11-05-2015 End: 11-05-2015 Carotid Duplex Ultrasound Comments: See Note; NOTES: [facility] [facility] [address] [place] [address] Carotid Duplex Ultrasound 11/02/15 0955 MR#: [id number] Acct: [id number] Name: FELICITY VILLA V Rep #: [id number] : 1965 50 From: Michael Lopez MD Attending Dr: Maria Elena Orr DO Status: REG CLI Ordering Dr: Maria Elena Orr DO Date: 11/02/15 Location: [facility] Sex: F C Admitted: Rt. [...] the left vertebral artery. Procedure Carotid Duplex 33055. Exam performed in department. Interpretation Summary Mild (<50%) stenosis right extracranial internal carotid. Mild (<50%) stenosis left extracranial internal carotid. Flow within the vertebral arteries is antegrade bilaterally. Ordering Physician: Maria Elena Orr Performed By: China Nation RVT 11/05/15 1152 Date Michael Lopez MD CC: Maria Elena Orr DO; Noelle Medranotelma MARTINEZ Date Dictated: 11/02/15 0955 Date Transcribed: 11/05/15 1152 Needle Loom Weaver: Signed Maria Elena Orr Work Phone: Start: 09-02-2015 End: 09-05-2015 Echocardiogram Complete Comments: See Note; NOTES: [facility] Cardiovascular Services [address] [place] [address]20 Echo Complete 09/02/15 0839 MR#: [id number] Acct: [id number] Name: FELICITY VILLA V Rep #: [id number] : 1965 50 From: Abdirahman Butler MD Attending Dr: Maria Elena Orr DO Status: REG CLI Ordering Dr: Maria Elena Orr DO Date: 09/02/15 Location: [facility] Sex: F C Admitted: Procedure [...] Date Dictated: 09/02/15 0839 Date Transcribed: 09/02/151828 Needle Loom Weaver: Signed Maria Elena Orr Work Phone: Start: 09-02-2015 End: 09-05-2015 Brain/Head W/WO Contrast Comments: See Note; NOTES: [facility] Imaging Services [address] [place] [address] Verda 4d Brain/Head W/WO Contrast MR#: [id number] Acct: [id number] Name: KADIE VILLAKIRTI Del Rosario Rep #: [id number] : 1965 F 50 From: Terry Pérez MD PCP: Noelle Bowden DO Status: REG CLI Study: Brain/Head W/WO Contrast Date of Exam: 09/02/15 Exam# [id number] Ordering Dr: Maria Elena Orr DO STUDY: [...] Terry Pérez MD at 14:29 EST Tel [phone], Service support [phone], CC: Maria Elena Orr DO; Noelle Bowden DO Needle Loom Weaver: Signed Maria Elena Orr Work Phone: Start: 09-02-2015 End: 09-05-2015 Chest WITH Contrast Comments: See Note; NOTES: [facility] Imaging Services [address] [place] [address] [place] 4d Chest WITH Contrast MR#: [id number] Acct: [id number] Name: FELICITY VILLA V Rep #: [id number] : 1965 F 50 From: Terry Pérez MD PCP: Noelle Bowden DO Status: REG CLI Study: Chest WITH Contrast Date of Exam: 09/02/15 Exam# [id number] Ordering Dr: Maria Elena Orr DO STUDY: [...] Terry Pérez MD at 13:49 EST Tel [phone], Service support [phone], CC: Maria Elena Orr DO; Noelle Bowden DO Needle Loom Weaver: Signed Maria Elena Orr Work Phone: Start: 09-02-2015 End: 09-05-2015 Nuclear Stress Test - Treadmil Comments: See Note; NOTES: [facility] Imaging Services [address] [place] [address] Verda 4d Nuclear Stress Test - Treadmil MR#: [id number] Acct: [id number] Name: FELICITY VILLA V Rep #: [id number] : 1965 50 From: Abdirahman Butler MD [...] 64%. Abdirahman Butler MD T: NTS JOB: [id number] 09/03/15906 <Electronically signed by Abdirahman Butler MD> Date Abdirahman Butler MD CC: Maria Elena Orr DO; Noelle Bowden DO Date Dictated: 09/02/15937 Date Transcribed: 09/02/15937 Needle Loom Weaver: Signed Maria Elena Holland Phone: Start: 08-30-2015 End: 08-31-2015 Pelvic (Non ) Comments: See Note; NOTES: [facility] Imaging Services [facility] [place] [address] Verdana 4d Pelvic (Non ) MR#: [id number] Acct: [id number] Name: FELICITY VILLA V Rep #: [id number] : 1965 F 50 From: Yg Evans MD PCP: Noelle Bowden DO Status: REG CLI Study: Pelvic (Non ) Date of Exam: 08/30/15 Exam# [id number] Ordering Dr: Maria Elena Orr DO STUDY: [...] at 3:27 EST Tel , Service support [phone], CC: Maria Elena Orr DO; Noelle Bowden DO Needle Loom Weaver: Signed Maria Elena Saez [employer] Phone: Start: 08-29-2015 End: 08-29-2015 Ecg routine ecg w/least 12 lds w/i&r [MEASUREMENTS ANALYSIS] Date of Test: 08/29/2015 10:48:29; Heart Rate: 77; MN Interval: 116; QRS: 90; QT Interval: 394; Corrected QT Interval (QTc): 423; P Wave Carleton: 35; QRS Wave Carleton: 53; T Wave Carleton: 57; Blood Pressure: 102/64 [ECG DIAGNOSTIC STATEMENTS] Date of Test: 08/29/2015 10:48:29; Summary: Sinus Rhythm -Short MN syndrome Andree = 116- T-abnormality - Anteroseptal/anterior ischemia. ABNORMAL Maria Elena Saez [employer] Phone: Comment on above: ekg- sinus with asymetric t wave inversi on ant- noted to be in v3 now not previoulsy Start: 08-29-2015 End: 08-29-2015 Spmtry w/vc expiratory giorgio w/wo mxml vol vntj _ Maria Elena Saez [employer] Phone: Comment on above: good effort and curve normal Start: 08-01-2015 End: 08-02-2015 Inital Evaluation - PT Comments: See Note; NOTES: [facility] Physical Therapy [facility] [address] [place] [address]. [address] [place] [address] Fax REHABILITATION SERVICES INITIAL EVALUATION MR#: [id number] Acct: [id number] Name: FELICITY VILLA V Rep #: [id number] : 1965 50 From: Delmi Castro Referring DrJaja: Maria Elena Orr DO Status: REG RCR Insurance: [facility] [employer] Eval Date: Patient's Visit Information FELICITY [...] for treatment manipulation neck and back. 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 SOCIAL: - Objective POSTURE:mild posture ,reduce lordosis. [...] to be FAXED BACK to us at [phone] for Medicare purposes. Please let me know [...] Min 4 Views Comments: See Note; NOTES: [facility] Imaging Services [address] [place] [address] [place]io 4d L/S Spine Min 4 Views MR#: [id number] Acct: [id number] Name: FELICITY VILLA V Rep #: [id number] : 1965 F 50 From: Juan Minaya MD PCP: Noelle Bowden DO Status: REG CLI Study: L/S Spine Min 4 Views Date of Exam: 07/18/15 Exam# [id number] Ordering Dr: Maria Elena Orr DO STUDY: [...] FACR at 12:39 EDT , Service support [phone], RAD/L/S Spine Min 4 Views IMPRESSION: Normal x-ray examination of the lumbar spine. Electronically Signed: Juan Minaya MD, FACR at 12:39 EDT , Service support [phone], CC: Maria Elena Orr DO; Noelle Bowden DO Needle Loom Weaver: Signed Maria Elena Orr Work Phone: Start: 05-28-2011 Lipid 1996 panel - Serum or Plasma Krislyn Aberegg PA Work Phone: Plan of Treatment Date Care Activity Detail Author Start: 04-16-2025 [facility] Start: 04-16-2025 [facility] Start: 05-24-2024 Covid-19 Vaccine ( season) Covid-19 Vaccine () [facility] Start: 05-24-2024 Influenza vaccination C [facility] Start: 04-22-2024 End: 04-22-2024 Patient encounter procedure 04/22/2024 9:20 AM EDT Office Visit Orthopedics [address] [place] [address] Francisca Rivera MD [address] [place] [address] left leg f/u fx Orthopedics Comment on above: left leg f/u fx Start: 04-15-2024 End: 04-15-2024 Patient encounter procedure 04/15/2024 8:00 AM EDT Appointment Radiology [address] [place] [address] Other closed fracture of shaft of left [...] 09-23-2023 Behavioral Health Screening Behavioral Health Screening [facility] Start: 05-24-2023 Covid-19 Vaccine ( season) Covid-19 Vaccine () [facility] Start: 04-17-2023 Colsc flx w/rmvl of tumor polyp lesion snare tq COLONOSCOPY W/LESION REMOVAL [facility] Start: 04-17-[address] [facility] Start: 03-15-2023 Patient referral [facility] Work Phone: Start: 10-27-2020 Procedure Education Eprescribe d prescriptions (G8553) [facility]; [facility] Work Phone: Start: 07-29-2019 Procedure Education Eprescribe d prescriptions (G8553) [facility] Work Phone: Start: 07-29-2019 Provider Instruction s for Treatment [facility] Work Phone: Start: 07-29-2019 HbA1c (Bld) [Mass fraction] HGB A1C (75150) [facility] Work Phone: Start: 06-08-2019 Glucose [Mass/Vol] [facility] Work Phone: Start: 06-08-2019 Lipoprotein blood qu an numbers & subclasses NMR Profile (74956) [facility] Work Phone: Start: 08-12-2018 Provider Instruction s for Treatment Reviewed Diagnostic Tests [facility] Work Phone: Start: 08-12-2018 25 hydroxy includes fractions if performed CALCIFEDIOL (71232) [facility] Work Phone: Start: 06-13-2018 Provider Instruction s for Treatment [facility] Work Phone: Start: 06-05-2018 Procedure Education Eprescribe d prescriptions (G8553) [facility] Work Phone: Start: 06-05-2018 Provider Instruction s for Treatment [facility] Work Phone: Start: 06-05-2018 Hepatitis c antibody HEPATITIS C ANTIBODY (30865) [facility] Work Phone: Start: 06-17-2017 Provider Instruction s for Treatment [facility] Work Phone: Start: 06-17-2017 Urnls dip stick/tabl et rgnt non-auto w/o micrscp Urinalysis, Office (29237) [facility] Work Phone: Start: 01-17-2017 [...] ant neoplasm of cervix Cervical Cancer Screening [facility] Start: 06-18-2016 Provider Instruction s for Treatment [facility] Work Phone: Start: 06-18-2016 Blood occult fecal h gb deter ia qual feces 1-3 FECAL OCCULT- Tubes sent home (25057) [facility] Work Phone: Start: 06-18-2016 Cytp cerv/vag auto t hin layer prep mnl screen Thin prep Pap (50438) (no STD testing) [facility] Work Phone: Start: 05-28-2016 Lipid panel Lipid Screening [facility] Start: 02-09-2016 Procedure Education Eprescribe d prescriptions [...] ign respnse gamma interferon Quantiferron gold test (99896) [facility] Work Phone: Start: 10-03-2015 Procedure Education Eprescribe d prescriptions (G8553) [facility] Work Phone: Start: 08-29-2015 Procedure Education Eprescribe d prescriptions (G8553) [facility] Work Phone: Start: 08-29-2015 Troponin I.cardiac [Mass/Vol] ASSAY, TROPONIN, QUANTITATIVE (aka Troponin I) (22268) [facility] Work Phone: Start: 08-29-2015 TSH Qn TSH (36831) [facility] Work Phone: Start: 08-29-2015 Blood count complete auto&auto difrntl wbc CBC W/AUTO DIFF WBC (84943) [facility] Work Phone: Start: 08-29-2015 Comprehensive metabo lic panel METABOLIC PANEL, COMPREHENSIVE (03538) [facility] Work Phone: Start: 07-18-2015 Procedure Education Eprescribe d prescriptions (G8553) [facility] Work Phone: Start: 07-18-2015 Culture bacterial quanttative colony count urine URINE JOVANNY CULTURE-STONE COL COUNT (83960) [facility] Work Phone: Start: 07-01-2015 Provider Instruction s for Treatment [facility] Work Phone: Start: 06-17-2015 Procedure Education Eprescribe d prescriptions (G8553) [facility] Work Phone: Start: 06-17-2015 Provider Instruction s for Treatment [facility] Work Phone: Start: 06-17-2015 Cytp cerv/vag auto t hin layer prep mnl screen Thin prep Pap (81798) (no STD testing) [facility] Work Phone: Start: 2015 Shingrix Vaccine (1 of 2) Shingrix Vaccine (1 of 2) [facility] Start: 05-28-2014 Diabetes Screening Diabetes Screenin g [facility] Start: 12-30-2013 Provider Instruction s [...] Free T4 [Mass/Vol] T4, FREE (T HYROXINE) (25961) [facility] Work Phone: Start: 08-07-2011 Free T3 [Mass/Vol] T3, FREE (TRIDOTHYRONINE) (11930) [facility] Work Phone: Start: 08-07-2011 TSH Qn TSH (85862) [facility] Work Phone: Start: 05-24-2011 Provider Instruction s for Treatment [facility] Work Phone: Start: 05-14-2011 Culture bacterial quanttative colony count urine URINE JOVANNY CULTURE-STONE COL COUNT (10953) [facility] Work Phone: Start: 2010 Screening for malign ant neoplasm of colon [facility] Start: 11-16-2009 Provider Instruction s for Treatment [facility] Work Phone: Start: 11-16-2009 TSH Qn TSH (39068) [facility] Work Phone: Start: 10-17-2009 Provider Instruction s for Treatment FOLLOW UP - MAKE APPT AFTER DIAGNOSTIC TESTS [facility] Work Phone: Start: 10-17-2009 Blood count complete automated CBC (AUTO) (75591) [facility] Work Phone: Start: 12-17-2007 Provider Instruction s for Treatment exercises [facility] Work Phone: Start: 03-17-2007 Provider Instruction s for Treatment [facility] Work Phone: Start: 2005 Screening for malign ant neoplasm of breast Mammogram Screening [facility] Start: 1984 Hepatitis B Vaccine (1 of 3 - 19+ 3-dose series) Hepatitis B Vaccine (1 of 3 - 19+ 3-dose series) [facility] Start: 1984 Urine microalbumin profile DTaP,Tdap,Td Vaccine (1 - Tdap) [facility] Start: 1983 Anxiety Screening Anxiety Screening [facility] Start: 1983 Depression Screening Depression Scre ening [facility] Start: 1983 Hepatitis C screening Hepatitis C Sc reening [facility] Start: 1983 HIV screening HIV Screening [facility] Blood chemistry [facility] CBC W Auto Different ial panel - Blood [facility] Work Phone: Colonoscopy [facility] CT Abdomen and Pelvi s W contrast [...] encounter 1 Occurrences starting 03/11/2024 until 04/10/2025 [facility] Work Phone: Comment on above: 1 Occurrences starti ng 03/11/2024 until 04/10/2025 Patient Education ED Chest Pain, Uncertain Cause [facility] Work Phone: Patient referral [facility] Work Phone: End: 05-22-2025 XR Ankle - left AP and Lateral and oblique XR ANKLE GENERAL 3V AP/LAT/OBL LEFT Radiology Routine Closed fracture of shaft of left fibula with routine healing, unspecified fracture morphology, subsequent encounter Other closed fracture of shaft of left fibula, initial encounter 1 Occurrences starting 04/22/2024 until 05/22/2025 [facility] Comment on above: 1 Occurrences starti ng 04/22/2024 until 05/22/2025 XR Ankle - left AP a nd Lateral and oblique XR ANKLE GENERAL 3V AP/LAT/OBL LEFT Radiology Routine Closed fracture of shaft of left fibula with routine healing, unspecified fracture morphology, subsequent encounter Other closed fracture of shaft of left fibula, initial encounter 04/22/2024 12:19 PM EDT [facility] End: 04-08-2025 XR Ankle - left Single view XR ANKLE 1V LEFT Radiology Routine Other closed fracture of shaft of left fibula, initial encounter 1 Occurrences starting 03/09/2024 until 04/08/2025 [facility] Work Phone: Comment on above: 1 Occurrences starti ng 03/09/2024 until 04/08/2025 XR Shoulder GE [address] [facility] Work Phone: End: 05-22-2025 XR Tibia and Fibula - left AP and Lateral [facility] Work Phone: Comment on above: 1 Occurrences starti ng 04/22/2024 until 05/22/2025 XR Tibia and Fibula - left AP and Lateral XR TIBIA FIBULA 2V AP/LAT LEFT Radiology Routine Closed fracture of shaft of left fibula with routine healing, unspecified fracture morphology, subsequent encounter 04/22/2024 12:19 PM EDT [facility] Work [...] Immunizations Immunization Date Immunization Notes Care Provider [facility] 09-02-2024 Seasonal trivalent influenza vaccine, adjuvanted, [...] vaccine, unspecified formulation Hanna COFFMAN Work Phone: [facility] 10-15-2021 Covid (Pfizer) Dr. Naomie Martini [...] Hospital 06-23-2019 influenza, seasonal, injectable Noelle Bowden [facility] Work Phone: 06-20-2018 influenza, injectable, quadrivalent, [...] [facility] 07-27-2009 novel [id number], preservative-free, injectable Dr. Naomie Martini MD Work Phone: [facility] Payers Date Payer Category Payer Self-pay [id number] 2022 Unknown 2020 Unknown [id number] 2015 Unknown [id number] 1965 Unknown [id number] 2.16.8 [id number] 1965 Unknown [id number] 2.16.8 40.1.591783.3.579.2.627 Unknown [id number] 2.16.8 40.1.473638.3.579.2.462 Unknown [id number] 2.16.8 40.1.602613.3.579.2.462 Unknown [id number] 2.16.8 40.1.847176.3.579.2.462 Unknown [id number] 2.16.8 40.1.774403.3.579.2.462 Unknown [id number] 2.16.8 40.1.274228.3.579.2.462 Unknown [id number] 2.16.8 40.1.139835.3.579.2.462 Unknown [id number] 2.16.8 40.1.947567.3.579.2.462 Unknown [id number] 2.16.8 40.1.968926.3.579.2.462 Unknown [id number] 2.16.8 40.1.547126.3.579.2.462 Unknown [id number] 2.16.8 40.1.072195.3.579.2.462 Unknown [id number] 2.16.8 40.1.057518.3.579.2.462 Unknown [id number] 2.16.8 40.1.435496.3.579.2.462 Unknown [id number] 2.16.8 40.1.714709.3.579.2.462 Unknown [id number] 2.16.8 40.1.188842.3.579.2.462 Unknown [id number] 2.16.8 40.1.487024.3.579.2.462 Unknown [id number] 2.16.8 40.1.907297.3.579.2.462 Social History Date Type Detail Facility Start: 03-07-2024 End: 03-11-2024 Alcohol Use Alcohol Use [facility] Work Phone: Comment on above: Occasional alcohol u se Inactive 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 Tobacco use: Tobacco use: [facility] Work Phone: Tobacco Use: Tobacco Use: [facility] Work Phone: Comment on above: updated 05-24-11 Start: 12-19-2021 End: 04-24-2023 Tobacco smoking status [facility] Unknown if ever smoked [facility] Start: 11-26-2020 None [facility] Start: 11-26-2020 Cigarettes [facility] Start: 1965 Sex Assigned At Female [facility] Start: 05-27-2018 Spouse/ Signif icant Other [facility] Tobacco smoking status No Smoking Status Entered [facility] Start: 03-07-2024 End: 04-16-2025 Tobacco smoking status NHIS Ex-smoker [facility] End: 01-22-2024 History of tobacco use Current smoker [facility] Start: 03-07-2024 Tobacco use and exposure Former smokeless tobacco user [facility] End: 08-06-2011 History of tobacco use User of smokeless tobacco [facility] Start: 03-07-2024 End: 03-11-2024 Alcohol intake Current drinker of alcohol (finding) [facility] Start: 03-07-2024 End: 03-11-2024 Tobacco use panel [facility] Start: 08-28-2011 Alcohol Comment [facility] Start: 1965 Sex Assigned At Not on file [facility] End: 01-22-2024 History of tobacco use Cigarette Smoker [facility] History of tobacco use Passive smoker [facility] Start: 03-11-2024 Tobacco use and exposure Smokeless tobacco non-user [facility] National Score (1-100), lower number is lower risk 54 [facility] Start: 01-05-2025 Sex Female (finding) [facility] NEGATED: Highlighted row [facility] [...] and needs external support after 3-4 seconds. [facility] 02-28-2024 Functional Status Independent [facility] 02-28-2024 Functional Status Standard Safet y ID band on, Call device within reach, Bed in low position, Wheels locked, Upper/Half-Length side-rails up, personal items within reach, Bedside Cart Locked, Visitor at bedside [facility] Mental Status Date Assessment Result Facility 04-16-2025 Cognitive function Voice/Name [facility] Work Phone: 02-28-2024 Mental Status Orientation Oriented x 4 [facility] 02-28-2024 Mental Status [facility] 04-17-2023 Cognitive function Voice/Name [facility] Work Phone: Clinical Notes 02-28-2024 to 04-16-2025 Note Date & Type Note Facility 04-16-2025 Radiology Diagnostic study note [facility] Imaging Services [address] [place], [place] [address] Chest 1 View (Portable) MR#: [id number] Acct: [id number] Name: FELICITY VILLA Rep #: [id number] : 1965 F 59 From: Greg Gracia MD PCP: Dr. Naomie Martini MD Status: R EG ER Study:Chest 1 View (Portable) Date of Exam: 04/16/25 Exam# [id number] Ordering Dr: Angel Angel DO PROCEDURE: CHEST 1 VIEW (PORTABLE) 04/16/2025 REASON FOR EXAM: CHEST PAIN TECHNIQUE: Frontal view of the chest. COMPARISON: CT chest 02/25/2024 FINDINGS: Lungs/Pleura: Clear. No pneumothorax or pleural effusion. Heart/Mediastinum: Normal in size. Bones/Soft tissues: No significant abnormality. RAD/Chest 1 View (Portable) IMPRESSION: No acute cardiopulmonary disease. Reading Location: [id number] CC: Dr. Naomie Martini MD; Dr. Angel Angel DO ~ Needle Loom Weaver: Signed [facility] 12-23-2024 Evaluation note Diagnosis Onset Date Resolution Postmenopausal bleeding acute A pril 2024 8:38am Generalized anxiety disorder chronic December 23, 2024 8:38am Hyperlipidemia chronic December 23, 2024 8:38am Hypertension chronic December 23, 2 025 8:38am Vaginal atrophy chronic December 8:38am [facility] Work Phone: 1(214) 537-823411-12-2024 [facility] Medical Records Department [address] [place] [address] History Physical Exam 08/04/24 1155 MR#: [id number] Acct: [id number] Name: FELICITY VILLA Rep #: [id number] : 1965 59 From: Lyn Slaughter DO PCP: Dr. 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 Author [...] resident's note for further details. Francisca Rivera, [facility]07-31-2024 History of Present illness Narrative* Francisca [...] details. Francisca Rivera [facility] Telephone encounter Note * Telephone Encounter - Maribel Mae - 03/31/2024 9:52 AM EDT Patient called because she completed her MRI on 03/25/24 and would like a call back about the results. # [phone] Assessment and Plan: Patient is a 58 year old female Other closed fracture of shaft of left fibula, initial encounter [facility] stress view show maintained ankle mortise and [...] PA. See PA's note for further details. [facility]07-09-2024 Miscellaneous Notes* Telephone Encounter - Mariebl Mae - 03/31/2024 9:52 AM EDT Patient called because she completed her MRI on 03/25/24 and would like a call back about the results. # [phone] Assessment and Plan: Patient is a 58 year old female Other closed fracture of shaft of left fibula, initial encounter [facility] stress view show maintained ankle mortise and [...] note for further details. [facility] History of Present illness Narrative* Nani [...] PATIENT PRESENTS WITH AN IMPLANTABLE OR ATTACHED NURSE SUBSTANCE ABUSE: No RADIOLOGY DEPARTMENT: MR; Exam(s) Completed: Lower MSK: Knee, left PERIPHERAL IV DATA: Not applicable SIGNED BY: DEBRA Schofield) March 25, 2024 11:25 AM documented [facility] NoteHNO ID: [id number] Author: NANI EVANS RT(R) Service: ? Author [...] PATIENT PRESENTS WITH AN IMPLANTABLE OR ATTACHED NURSE SUBSTANCE ABUSE: No RADIOLOGY DEPARTMENT: MR; Exam(s) Completed: Lower MSK: Knee, left PERIPHERAL IV DATA: Not applicable SIGNED BY: RT Kanwal(Isma) March 25, 2024 11:25 [facility]06-19-2024 History of Present illness Narrative* Francisca Rivera [...] of shaft of left fibula, initial encounter [facility] stress view show maintained ankle mortise and [...] 03/11/2024 Time: 10:43 AM documented in [facility] NoteHNO ID: [id number] Author: FRANCISCA RIVERA MD Service: ? Author [...] of shaft of left fibula, initial encounter [facility] stress view show maintained ankle mortise and [...] Francisca Rivera MD Date: 03/11/2024 Time: 10:43 [facility]06-15-2024 History of Present illness Narrative* Ruby Aviles [...] PATIENT PRESENTS WITH AN IMPLANTABLE OR ATTACHED NURSE SUBSTANCE ABUSE: No RADIOLOGY DEPARTMENT: General X-ray: Exam(s) Completed: Lower Extremity X- Ray(s): Tibia Fibula, Left PERIPHERAL IV DATA: Not applicable SIGNED BY: DEBRA Still) March 07, 2024 9:56 AM documented in this [facility]Ohio [facility]24 NoteHNO ID: [id number] Author: RUBY AVILES RT (R) Service: Radiology [...] PATIENT PRESENTS WITH AN IMPLANTABLE OR ATTACHED NURSE SUBSTANCE ABUSE: No RADIOLOGY DEPARTMENT: General X-ray: Exam(s) Completed: Lower Extremity X-Ray(s): Tibia Fibula, Left PERIPHERAL IV DATA: Not applicable SIGNED BY: RT Cheko(R) March 07, 2024 9:56 [facility]06-15-2024 NoteHNO ID: [id number] Author: HANNA CUELLO PA Service: ? Author Type: Physician Education Manager Type: Progress Notes Filed: 03/07/2024 11:19 Note Text: This note was created using [employer]. Subjective Felicity Villa is a 58 [...] to make long-leg splint. (more content not included)...[facility]06-15-2024 History of Present illness Narrative* Hanna Cuello PA - 03/07/2024 9:54 AM EDT Images from the original note were not included. This note was created using [employer]. Subjective Felicity Villa is a 58 year [...] ER evaluation. MEGHNA Milton documented in this [facility]Ohio [facility]06-[facility]24 Hospital Discharge instructions Patient Education 02/28/2024 [...] or swelling over your back or spine [id number] [employer] [place] [address]. All rights reserved. This information is not intended as a substitute for professional medical care. Always follow yourhealthcare professional's instructions. Follow Up Care 02/28/2024 21:52:36 With:NAOMIE MARTINI MD Address: [address] [place] [address] [place] [address] [phone] When:2-4 days [facility] 06-07-2024 Note Discharge Instructions Thank you for allowing [facility] to assist you with your healthcare needs. The following is importantdischarge information regarding your hospital visit. Diagnosis from Today's Visit Sciatica of left side What to Do Next Instructions from Your Care Team No qualifying data available. Post Acute Orders No qualifying data available. You Need to Schedule the Following Appointments Follow Up with NAOMIE MARTINI MD When:Within 2-4 days Where:[address] [place] [address] [place] [address] [phone] Allergies No Known Medication Allergies Medications Please ask your primary doctor or pharmacist before taking any other medication not listed, including over the counter drugs, herbal medications, vitamins and or supplements as they may interact withyour home medications. What How Much When Why Instructions Last Dose New acetaminophen-hydrocodone ([place] 325- 5 mg oral tablet) 1 tab(s) [...] may report side effects to FDA at 8-960-KTJ-4223. What other drugs will affect acetaminophen and [...] affect acetaminophen and hydrocodone, including prescription and kxlh-ise-efshwcx medicines, vitamins, and herbal products. Not all [...] to ensure that the information provided by [employer]. ('[employer]') is accurate, up-to-date, and complete, but no guarantee is made to that effect. Drug information contained herein may be time sensitive. [employer] information has been compiled for use by healthcare practitioners and consumers in the [place] and therefore [employer] does not warrant that uses outside of the [place] are appropriate, unless specifically indicated otherwise. [employer] drug information does not endorse drugs,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
== END | disposition home or self-care (01) ==
LOC: OPBI 10:06
PROVIDERS: PCP Internal Medicine; Referring Provider Nurse Practitioner Family; Visit Provider Nurse Practitioner Family
DX: Z12.31 Encounter for screening mammogram for malignant neoplasm of breast (principal)
CPT/HCPCS: 77063; 77067

== ENCOUNTER → 2025-07-22 | Outpatient (CLI) | payer OTHER, SELFPAY ==
--- NOTE | 2025-07-22 09:00 | BD_ITS ---
PROCEDURE: BD/Dexa Bone Density Study
== END | disposition home or self-care (01) ==
LOC: OPBD 08:39
PROVIDERS: PCP Internal Medicine; Referring Provider Internal Medicine; Visit Provider Internal Medicine
DX: Z78.0 Asymptomatic menopausal state (principal); M85.80 Other specified disorders of bone density and structure, unspecified site
CPT/HCPCS: 77080